=== PATIENT | male | born 1985 | race Caucasian/White ===

== ENCOUNTER 2024-07-02 02:43 | Inpatient (IN) | payer BC, SELFPAY ==
[2024-07-02] VITALS (17 sets, daily range): BP systolic 93–153; BP diastolic 68–103; PULSE 115–139; RESP 16–27; TEMP 36.4–37.1; O2SAT 96–100; BMI 25.9
--- NOTE | ~2024-07-02 | CT_ITS ---
EXAMINATION: CT abdomen pelvis w con DATE: 07/10/2024 08:44 INDICATION: Leukocytosis. TECHNIQUE: Computed tomography (CT) of the abdomen and pelvis was performed with 100 mL Omnipaque 350 intravenous contrast. Automated exposure control and iterative reconstruction technique were employe d. The dose-length product was 608.29 mGy-cm. COMPARISON: CT abdomen and pelvis 07/06/2024 FINDINGS: There are airspace opacities and centrilobular nodules in the lower lobes, right middle lob e, and lingula, consistent with pneumonia. There are small pleural effusions. The heart size is jonathon l. No pericardial effusion. The liver, gallbladder, spleen, pancreas, adrenal glands, and kidneys are normal. There is gas in the bladder lumen, likely from recent instrumentation. The prostate is mildl y enlarged. There are no dilated loops of bowel. The appendix is not visualized. There are dilated lo ops of proximal small bowel. There is wall thickening of many loops of small bowel. There are multipl e areas of small bowel anastomosis. Anterior skin sandor are noted. There foci of free intraperitone al gas, consistent with recent surgery. There is fat stranding in the peritoneum. There are no pathol ogically enlarged lymph nodes. There is no free intraperitoneal fluid. There is mild thoracic and lum bar spondylosis. IMPRESSION: 1. Bilateral pneumonia. 2. Small pleural effusions. 3. Dilated small bowel, likely adynamic ileus. 4. Wall thickening of small bowel, consistent with enteritis. Reviewed, dictated and finalized at location A. SPRAYER FIRST
--- NOTE | ~2024-07-02 | XR_ITS ---
EXAMINATION: XR chest PICC line DATE: 07/07/2024 13:56 INDICATION: PICC line placement TECHNIQUE: frontal view of the chest was obtained. COMPARISON: Chest radiograph dated 07/02/2024 FINDINGS: Interval placement of a right upper extremity peripherally inserted central venous catheter (PICC) wh ich extends into the mid superior vena cava where it makes an abrupt turn with the distal tip likely extending into the azygos vein. Nasogastric tube in expected position with tip in proximal side port in the body the stomach. Opacities at the bilateral lower lung zones which could represent atelectasis or pneumonia. No pulmon corina edema, pleural effusion or pneumothorax. Arch size is normal. IMPRESSION: 1. Right upper extremity PICC line likely extending into the azygos vein. Considering rapid saline fl ush for repositioning. 2. Opacities in the bilateral lower lung zones which could represent atelectasis and/or pneumonia. Reviewed, dictated and finalized at location B. BORER IMPRESSION: 1. Right upper extremity PICC line likely extending into the azygos vein. Consi dering rapid saline flush for repositioning. 2. Opacities in the bilateral lower lung zones which could represent atelectasi s and/or pneumonia.
--- NOTE | ~2024-07-02 | XR_ITS ---
XR abdomen/kub 1V Ordering provider: Armand Mccann MD History: . sbo . Comparison: None. FINDINGS: BOWEL: Slightly dilated small bowel loops are seen in the mid abdomen. Air is also seen in the large bowel. Nasogastric tube is seen with the tip in the stomach. ORGANOMEGALY: None. SIGNIFICANT PATHOLOGIC CALCIFICATIONS: None. OTHER: No free air is seen under the diaphragm. IMPRESSION: Slightly dilated small bowel loops in the mid abdomen. Partial obstruction is possible. Follow-up adv ised. Reviewed, dictated and finalized at location A. T METAL DUCT WORKER SUPERVISOR IMPRESSION: Slightly dilated small bowel loops in the mid abdomen. Partial obstruction is p ossible. Follow-up advised.
--- NOTE | ~2024-07-02 | XR_ITS ---
XR abdomen/kub 1V Ordering provider: Armand Mccann MD History: . sbo . Comparison: None. FINDINGS: BOWEL: Nasogastric tube is seen with the tip in the stomach. Dilated small bowel loops are seen suggestive of obstruction. Clinical correlation and Follow-up advi sed. ORGANOMEGALY: None. SIGNIFICANT PATHOLOGIC CALCIFICATIONS: None. OTHER: No free air is seen under the diaphragm. IMPRESSION: Dilated small bowel loops suggestive of obstruction. Clinical correlation and follow-up advised. Reviewed, dictated and finalized at location A. REPAIRER IMPRESSION: Dilated small bowel loops suggestive of obstruction. Clinical correlation and f ollow-up advised.
--- NOTE | ~2024-07-02 | XR_ITS ---
EXAMINATION: XR_FLGTUBINS_CR DATE: 07/11/2024 13:39 INDICATION: Difficulty with nasal gastric tube placement TECHNIQUE: Fluoroscopy was utilized during placement of a nasogastric tube. A single fluoroscopic lynnette ge of the upper abdomen was recorded. The amount of fluoroscopy time used during this procedure was 0 .8 minutes. Total DAP was 3.245 Gycm^2 COMPARISON: None. FINDINGS/impression: 1. Nasogastric tube tip in proximal side port in the body the stomach. 2. Multiple gas-filled but not frankly dilated loops of small bowel in the left upper quadrant which could represent an ileus or obstruction. Reviewed, dictated and finalized at location A. E JOINTER
--- NOTE | ~2024-07-02 | XR_ITS ---
Supine and upright views of the abdomen Clinical history: Small bowel obstruction COMPARISON: 07/05/2024 Findings: NG tube in place. Dilated small bowel loops suggest small bowel obstruction. There is oral contrast in large bowel. No free air evident. No abnormal mass lesion or calcification is seen. Sunburst us structures are intact. Impression: Probable small bowel obstruction with NG tube in place. There is oral contrast in large bowel. Reviewed, dictated and finalized at location M. SETTER Impression: Probable small bowel obstruction with NG tube in place. There is oral contrast in large bowel.
--- NOTE | ~2024-07-02 | CT_ITS ---
EXAMINATION: CT abdomen pelvis w con DATE: 07/06/2024 15:12 INDICATION: Small bowel obstruction. Elevated lipase. TECHNIQUE: Computed tomography (CT) of the abdomen and pelvis was performed with 100 mL Omnipaque 350 intravenous contrast. Automated exposure control and iterative reconstruction technique were employe d. The dose-length product was 661.88 mGy-cm. COMPARISON: CT abdomen and pelvis 07/02/2024 FINDINGS: The visualized portions of the lung bases demonstrate airspace opacities in the lower lobes , likely atelectasis. No pleural effusion. The heart size is normal. No pericardial effusion. The juanito er, gallbladder, spleen, pancreas, adrenal glands, and kidneys are normal. There is gas in the bladde r lumen, likely from recent instrumentation. There is oral contrast in the colon and distal small bow el. There are multiple loops of small bowel with some areas of wall thickening. There is a transition point in the anterior abdomen. The distal small bowel is normal in caliber. There is free intraperit sinclair gas. There is a small volume of ascites. There are no pathologically enlarged lymph nodes. Ther e is mild thoracic and lumbar spondylosis. There is mild chronic anterior wedging of multiple vertebr al bodies. IMPRESSION: 1. Free intraperitoneal gas and small volume of ascites, consistent with bowel perforation. I called this result to Meg [place]. 2. Small bowel obstruction. 3. Normal pancreas. Reviewed, dictated and finalized at location A. NEYMAN TOOL AND DIE MAKER
--- NOTE | ~2024-07-02 | XR_ITS ---
Supine and upright views of the abdomen Clinical history: Small bowel obstruction COMPARISON: 07/03/2024 Findings: NG tube in place. Probable dilated small bowel loops are consistent with obstruction. No fr ee air. No abnormal mass lesion or calcification is seen. Osseous structures are intact. Impression: NG tube in place with small bowel obstruction. Reviewed, dictated and finalized at [facility]. BOX CHECKER Impression: NG tube in place with small bowel obstruction.
--- NOTE | ~2024-07-02 | XR_ITS ---
EXAMINATION: XR abdomen/kub 1V DATE: 07/11/2024 08:00 INDICATION: Adynamic ileus. TECHNIQUE: A supine view of the abdomen on 2 radiographs was obtained. COMPARISON: Abdomen radiographs 07/10/2024 FINDINGS: There is dilated small bowel in the upper abdomen. The colon is normal in caliber. Skin sta ples are noted. IMPRESSION: 1. Persistently dilated small bowel, likely adynamic ileus. Reviewed, dictated and finalized at location A. ER SPRAYER
--- NOTE | ~2024-07-02 | XR_ITS ---
EXAM: XR abdomen gastric tube insert DATE: 07/11/2024 16:49 HISTORY: NG position, ileus . COMPARISON: 07/02/2024. FINDINGS: Streaky bibasilar atelectasis/scar. NG tube, tip and side port project over the expected l ocation of the stomach. Multiple loops of dilated small bowel in the upper abdomen. IMPRESSION: NG tube, in good position. Persistent/recurrent small bowel dilation, may represent ileus or obstruction Reviewed, dictated and finalized at location K. GER BOOKS IMPRESSION: NG tube, in good position. Persistent/recurrent small bowel dilatio n, may represent ileus or obstruction
--- NOTE | ~2024-07-02 | XR_ITS ---
EXAMINATION: XR abdomen/kub 1V DATE: 07/12/2024 09:15 INDICATION: Adynamic ileus. TECHNIQUE: A supine view of the abdomen on 2 radiographs was obtained. COMPARISON: Abdomen radiographs 07/11/2024 FINDINGS: There are dilated loops of small bowel. The colon is normal in caliber. Skin sandor are no eduardo. The nasogastric tube tip is in the stomach. There are airspace opacities in the lower lung zones . IMPRESSION: 1. Persistently dilated small bowel, likely adynamic ileus. 2. Stable airspace opacities in the lower lung zones, consistent with pneumonia. Reviewed, dictated and finalized at location A. RAFT ELECTRICAL SYSTEMS SPECIALIST IMPRESSION: 1. Persistently dilated small bowel, likely adynamic ileus. 2. Stable airspace opacities in the lower lung zones, consistent with pneumonia .
--- NOTE | ~2024-07-02 | XR_ITS ---
Upright portable view of the abdomen Clinical history: NG tube placed Findings: NG tube in satisfactory position. Multiple air distended loops of bowel are present. No abn ormal mass lesion or calcification is seen. Osseous structures are intact. Impression: NG tube in place. Probable small bowel obstruction. Reviewed, dictated and finalized at [facility]. ET MACHINE OPERATOR Impression: NG tube in place. Probable small bowel obstruction.
--- NOTE | ~2024-07-02 | XR_ITS ---
EXAMINATION: XR abdomen/kub 1V DATE: 07/10/2024 11:17 INDICATION: Adynamic ileus. TECHNIQUE: A supine view of the abdomen on 2 radiographs was obtained. COMPARISON: Abdomen radiographs 07/06/2024, CT abdomen and pelvis 07/10/2024 FINDINGS: There are dilated loops of small bowel. The colon is decompressed. Skin sandor are noted. There is contrast in the bladder. There are airspace opacities at the lung bases. IMPRESSION: 1. Dilated small bowel, likely adynamic ileus. 2. Airspace opacities at the lung bases, consistent with pneumonia. Reviewed, dictated and finalized at location A. ERICAN HISTORY PROFESSOR
--- NOTE | ~2024-07-02 | XR_ITS ---
Portable chest x-ray Comparison: None Clinical History: Pneumonia Findings: NG tube in satisfactory position. Lungs are clear, without focal consolidation or pleural effusion. Cardiomediastinal silhouette is stable. Bones and soft tissues are unremarkable. Impression: Clear lungs. NG tube in place. Reviewed, dictated and finalized at location . MANAGER Impression: Clear lungs. NG tube in place.
--- NOTE | ~2024-07-02 | XR_ITS ---
EXAM: XR abdomen gastric tube insert DATE: 07/02/2024 16:30 HISTORY: NG insertion . COMPARISON: Same date at 9:54 AM. FINDINGS: Clear lung bases. NG tube, tip and side port project over the stomach. Multiple loops of d ilated bowel in the upper abdomen. IMPRESSION: NG tube, in good position. Reviewed, dictated and finalized at location K. F LEARNING OFFICER IMPRESSION: NG tube, in good position.
--- NOTE | ~2024-07-02 | XR_ITS ---
XR abdomen/kub 1V DATE: 07/14/2024 07:51 INDICATION: Ileus. NG tube. TECHNIQUE: 2 supine AP views COMPARISON: 07/13/2024 KUB FINDINGS: NG tube unchanged in position, distal tip overlying gastric fundus, the proximal side port approximately 2.5 cm distal to the diaphragmatic hiatus. Bowel suture lines overlie both sides of the abdomen. There are skin sandor overlying the lower mid abdomen. No bowel obstruction is evident. There is right basilar atelectasis. IMPRESSION: Postoperative examination; nonspecific bowel gas pattern without apparent obstruction NG tube in gastric fundus Reviewed, dictated and finalized at [facility]. Reviewed, dictated and finalized at location A. BAR DRIVER IMPRESSION: Postoperative examination; nonspecific bowel gas pattern without ap parent obstruction NG tube in gastric fundus
--- NOTE | ~2024-07-02 | XR_ITS ---
EXAMINATION: XR chest PICC line DATE: 07/07/2024 14:16 INDICATION: Central line placement. TECHNIQUE: A single frontal view of the chest was obtained. COMPARISON: Chest single view at 1:44 PM FINDINGS: There are airspace opacities in the lower lung zones. No pleural effusion or pneumothorax. The heart size is normal. The nasogastric tube tip is in the stomach. A right upper extremity periphe rally inserted central venous catheter (PICC) is seen with tip in the superior vena cava. IMPRESSION: 1. Stable airspace opacities in the lower lung zones, consistent with atelectasis versus pneumonia. Reviewed, dictated and finalized at location A. ERY CHARGER TESTER IMPRESSION: 1. Stable airspace opacities in the lower lung zones, consistent with atelectas is versus pneumonia.
--- NOTE | ~2024-07-02 | CT_ITS ---
Non-contrast CT scan of the Abdomen and Pelvis Clinical indication: Abdominal pain Technique: 2.5 mm axial scans were obtained through the abdomen and pelvis without intravenous or or al contrast. Dose reduction technique was used on this scan by utilizing automated exposure control a nd iterative reconstruction technique. The dose-length product (DLP) was 673.77 mGy-cm. Findings: Images through the lung bases reveal no abnormalities. There is no evidence of renal or ureteral calculi. The kidneys and the ureters are nondilated. The liver, spleen, pancreas, gallbladder, and adrenals appear normal. There is no aortic aneurysm. There is marked distention of stomach and proximal small bowel loops, with transition point in the an terior mid abdomen just deep to the umbilicus. Findings are compatible with high-grade small bowel ob struction. Distal small bowel and large bowel are relatively decompressed. Images through the pelvis were performed. There is no evidence of ascites or lymphadenopathy. Urinary bladder unremarkable. No pelvic mass seen. Impression: Findings compatible high-grade small bowel obstruction, transition point as detailed above. Reviewed, dictated and finalized at location M. INSPECTOR Impression: Findings compatible high-grade small bowel obstruction, transition point as det dave above.
--- NOTE | ~2024-07-02 | XR_ITS ---
SMALL BOWEL SERIES ONLY INDICATION: High-grade small bowel obstruction TECHNIQUE: Serial plain films and fluoroscopic spot films are performed following installation of con trast via the nasogastric tube. COMPARISON: Reference is made to a CT examination of the abdomen and pelvis dated 07/02/2024 FINDINGS: Web Mobile Designer imaging demonstrated a nasogastric tube projecting over the left upper quadrant, presumably wit hin the neck. Multiple loops of significantly dilated bowel were identified measuring up to 5 cm with mural thicken ing Air opacified colon was present, but decompressed. Enteric staple line identified to the right of midline. Contrast was followed sequentially through the small bowel. Significant delay in passage is identified, not entering the colon until 4 hours following installati on. Final imaging demonstrated reduction in the caliber of the visualized small bowel, markedly distended on initial evaluation. IMPRESSION: Delayed passage into the colon with reduction in caliber of the visualized small bowel, markedly dist ended on initial evaluation. Reviewed, dictated and finalized at location A. R PROCESSOR IMPRESSION: Delayed passage into the colon with reduction in caliber of the visualized smal l bowel, markedly distended on initial evaluation.
--- NOTE | ~2024-07-02 | XR_ITS ---
XR abdomen/kub 1V DATE: 07/15/2024 08:15 INDICATION: Ileus. NG tube removed yesterday. TECHNIQUE: 2 supine AP views COMPARISON: 07/14/2024 KUB FINDINGS: Interval removal of NG tube since 07/14/2024. The lung bases appear clear. There are sandor overlying the lower mid abdomen. Radiopaque bowel sutures overlie the right upper a nd midabdomen. There are are multiple nondilated gas containing small bowel segments as well as some gas within the nondilated colon, which may be due to postoperative adynamic ileus. The psoas shadows are intact. No visceromegaly or significant abnormal calcification is evident. IMPRESSION: Gas distended small bowel and colon segments, which may be due to postoperative adynamic ileus Removal of NG tube since 07/14/2024 Reviewed, dictated and finalized at [facility]. Reviewed, dictated and finalized at location A. OMER ADVISOR IMPRESSION: Gas distended small bowel and colon segments, which may be due to p ostoperative adynamic ileus Removal of NG tube since 07/14/2024
--- NOTE | ~2024-07-02 | XR_ITS ---
EXAMINATION: XR abdomen/kub 1V DATE: 07/13/2024 07:42 INDICATION: Ileus TECHNIQUE: A supine view of the abdomen was obtained. COMPARISON: 03/11/2024 FINDINGS: Nasogastric tube tip in proximal side port in the body of the decompressed stomach. Postoperative gracia nges in the abdomen with suture lines project over the mid and right abdomen and midline skin sandor . 1 persistent single small mildly dilated segment of small bowel with additional small amount of gas scattered throughout nondilated loops of large and small bowel. Mild opacities at the right lung bas e which could represent atelectasis or pneumonia. IMPRESSION: 1. Single persistent short mildly dilated segment of small bowel in the left upper quadrant most like ly persistent ileus. 2. Mild opacities in the right lower lung zone which could represent atelectasis or pneumonia. Reviewed, dictated and finalized at location A. E TRIMMER IMPRESSION: 1. Single persistent short mildly dilated segment of small bowel in the left up per quadrant most likely persistent ileus. 2. Mild opacities in the right lower lung zone which could represent atelectasi s or pneumonia.
--- NOTE | 2024-07-02 03:02 | ECG_ITS ---
Test Date: 2024-07-02 03:06:41 Measurements Intervals [place] Rate: 116 P: 53 AL: 177 QRS: 91 QRSD: 126 T: -50 QT: 320 QTc: 445 Interpretive Statements SINUS TACHYCARDIA RIGHT AXIS DEVIATION POSSIBLE RIGHT ATRIAL ENLARGEMENT POSSIBLE LEFT ATRIAL ENLARGEMENT MINIMAL Q WAVES- INF/LAT LEADS MODERATE T-WAVE ABNORMALITY, CONSIDER LATERAL ISCHEMIA ABNORMAL ECG No previous ECG available for comparison Electronically Signed On 07-02-2024 07:54:17 MATERIALS COORDINATOR by Diallo Reyes D.O.
--- NOTE | 2024-07-02 03:07 | PC.NURSE ---
Patient is complaining of difficulty with breathing. Patient appears cyanotic. Cold extremities. EKG completed and shown to MD. RN informed MD patient does not look well.
--- NOTE | 2024-07-02 03:26 | PC.NURSE ---
placed patient on nasal o2 detector. patient o2 saturation is 99 on 2 l.
--- NOTE | 2024-07-02 03:49 | PC.NURSE ---
patient b/p running low. RN placed patient in Trendelenburg and informed ER MD at this time. MD is in seeing patient.
[2024-07-02] MEDS: ONDANSETRON INJ 4 MG/2 ML VIAL IV PUSH ×3 (04:00→17:46)
[2024-07-02] MEDS: fentaNYL CITRATE INJ (*CRX) 100 MCG/2 ML VIAL 50 MCG IV PUSH ×2 (04:00→06:54)
[2024-07-02] MEDS: SODIUM CHLORIDE 0.9% IV 1,000 ML 999 ML IV CONT ×4 (04:01→17:39)
[2024-07-02] MEDS: Please add drug allergy info to patient profile. 1 EACH XX (04:02)
[2024-07-02 04:13] LABS: Hematocrit 57.4 % (42.0-52.0); Hemoglobin 19.4 g/dL (14.0-18.0); Immature Platelet Fraction Pct 4.7 % (0.9-11.2); Mean Corpuscular HGB Conc 33.8 g/dl (32-36); Mean Corpuscular Hemoglobin 31.9 pg (26-34); Mean Corpuscular Volume 94.3 fl (80-100); Mean Platelet Volume 10.4 fl (7.4-10.4); Platelet Count Result 337 k/mm3 (150-375); Red Blood Count 6.09 M/mm3 (4.6-6.20); Red Cell Distribution Width 12.9 % (11.5-14.5); White Blood Count 13.1 K/mm3 (4.5-10.0)
[2024-07-02 04:22] LABS: Lactic Acid Reflex 3.7 mmol/L (0.7-2.0)
[2024-07-02 04:25] LABS: Alanine Aminotransferase 27 U/L (6-50); Albumin Level 5.6 g/dL (3.5-5.1); Alkaline Phosphatase 150 U/L (38-126); Anion Gap 30 mmol/L (4-12); Aspartate Amino Transferase 30 U/L (17-59); Bilirubin,Total 0.9 mg/dL (0.2-1.3); Blood Urea Nitrogen 38 mg/dL (9-20); Carbon Dioxide 10 mmol/L (22-30); Chloride 92 mmol/L (98-107); Estimated CRCL calculation 19 ml/min; Estimated Glomerular Filt Rate 11; Glucose 296 mg/dL (65-110); Lipase 582 U/L (23-300); Magnesium 2.9 mg/dL (1.6-2.3); Potassium 4.1 mmol/L (3.4-5.0); Sodium 132 mmol/L (137-145)
[2024-07-02 04:29] LABS: NT Pro B Type Natriuretic Pept 355 pg/mL (19.9-100)
--- NOTE | 2024-07-02 04:38 | ED_ITS ---
HPI - General Adult General Chief complaint: Abdominal Pain <Prashant Hanks MD - Last Filed: 07/02/24 06:48> Stated complaint: constipation <Prashant Hanks MD - Last Filed: 07/02/24 06:48> Time Seen by Provider: 07/02/24 03:52 <Prashant Hanks MD - Last Filed: 07/02/24 06:48> Source: EMS, RN notes reviewed and old records reviewed <Akila López MD - Last Filed: 07/02/24 11:45> Mode of arrival: EMS <Akila López MD - Last Filed: 07/02/24 11:45> Limitations: no limitations <Akila López MD - Last Filed: 07/02/24 11:45> History of Present Illness HPI narrative: Patient 39-year-old gentleman who presents emergency department chief complaint of abdominal pain. Patient reports that he has prior history of multiple abdominal surgeries has had bowel obstructions before in the past the patient states he has been mostly followed over at [facility] but has not seen them in 6 years. The patient states that he has not had a bowel movement since the she reports that his abdomen is distended <Prashant Hanks MD - Last Filed: 07/02/24 06:48> Related Data Allergies/adverse reactions: Allergies Allergy/AdvReac Type Severity Reaction Status Date / Time No Known Allergies Allergy Verified 07/02/24 03:55 <Prashant Hanks MD - Last Filed: 07/02/24 06:48> Review of Systems Review of Systems: A 10 system review of systems was completed on the patient and is negative except for what is stated in the HPI. Nursing and ancillary documentation was reviewed. <Prashant Hanks MD - Last Filed: 07/02/24 06:48> PMF Past Medical History Medical History: Medical History (Updated 07/02/24 @ 11:45 by Akila López MD) Small bowel obstruction <Prashant Hanks MD - Last Filed: 07/02/24 06:48> Surgical History Surgical History: Surgical History (Updated 07/02/24 @ 11:37 by Akila López MD) H/O lysis of adhesions H/O resection of small bowel <Prashant Hanks MD - Last Filed: 07/02/24 06:48> Social History Social History: Social History (Updated 07/02/24 @ 11:37 by Akila López MD) Smoking status: Unknown if ever smoked <Prashant Hanks MD - Last Filed: 07/02/24 06:48> Exam Narrative: GENERAL: Well-appearing, well-nourished, and in no acute distress. HEAD: Normocephalic, atraumatic. EYES: PERRLA and EOMI. ENT: Nares clear, no rhinorrhea or epistaxis. Mucous membranes dry. NECK: Supple. CHEST: Clear to auscultation. No respiratory distress. HEART: Regular rate and rhythm. No murmur heard. Normal peripheral pulses. ABDOMEN: Soft, distended diffusely tender to palpation, normal active bowel sounds. EXTREMITIES: Normal range of motion. No edema. SKIN: Warm, dry, no rash. NEURO: No focal deficits. Alert and oriented x3. PSYCH: Normal mood and affect. <Prashant Hanks MD - Last Filed: 07/02/24 06:48> GENERAL: , well-nourished, and in no acute distress. HEAD: Normocephalic, atraumatic. EYES: PERRLA and EOMI. ENT: Nares clear, no rhinorrhea or epistaxis. Mucous membranes dry. NECK: Supple. CHEST: Clear to auscultation. No respiratory distress. HEART: Regular rate and rhythm. No murmur heard. Normal peripheral pulses. ABDOMEN: Soft, distended diffusely tender to palpation, normal active bowel sounds. EXTREMITIES: Normal range of motion. No edema. SKIN: Warm, dry, no rash. NEURO: No focal deficits. Alert and oriented x3. PSYCH: Normal mood and affect. <Akila López MD - Last Filed: 07/02/24 11:45> Const: General: ill appearing <Akila López MD - Last Filed: 07/02/24 11:45> Course Reevaluation(s) Reevaluation #1: I discussed with patient that he has TYLER, SBO and that he needs to have nasogastric tube placed. I discussed importance of this placement for treatment and he is agreeable with antianxiolytic. <Akila López MD - Last Filed: 07/02/24 11:45> Date: 07/02/24 <Akila López MD - Last Filed: 07/02/24 11:45> Time: 10:40 <Akila López MD - Last Filed: 07/02/24 11:45> Consultations Consultation #1: I discussed case with Dr. Mccann. He agrees to consult. He states patient needs to have nasogastric tube for treatment. <Akila López MD - Last Filed: 07/02/24 11:45> Date: 07/02/24 <Akila López MD - Last Filed: 07/02/24 11:45> Time: 10:40 <Akila López MD - Last Filed: 07/02/24 11:45> Vital Signs Vital signs: Vital Signs Pulse Rate 118 H 07/02/24 02:46 Respiratory Rate 27 H 07/02/24 02:46 Blood Pressure 93/78 L 07/02/24 02:46 Temperature 97.5 F L 07/02/24 06:50 Pulse Rate 120 H 07/02/24 11:02 Respiratory Rate 18 07/02/24 10:19 Blood Pressure 101/68 07/02/24 10:19 Pulse Oximetry 100 07/02/24 10:19 <Prashant Hanks MD - Last Filed: 07/02/24 06:48> Vital Signs Pulse Rate 118 H 07/02/24 02:46 Respiratory Rate 27 H 07/02/24 02:46 Blood Pressure 93/78 L 07/02/24 02:46 Temperature 97.5 F L 07/02/24 06:50 Pulse Rate 120 H 07/02/24 11:02 Respiratory Rate 18 07/02/24 10:19 Blood Pressure 101/68 07/02/24 10:19 Pulse Oximetry 100 07/02/24 10:19 <Akila López MD - Last Filed: 07/02/24 11:45> Medical Decision Making MDM Narrative Medical decision making narrative: PAtient presents with nausea, vomiting, weakness and abdominal pain. He was seen by [facility] EDP initially, pending CT. Once CT returned, he was found to have SBO and nursing states he declined NGT. I spoke with patient and stated he has had SBO several times and he just wants to see if obstruction resolves with IV fluids. I spoke with General surgery and they state patient needs tube. Patient agrees to do it after discussion. HE has already received 2 liters IVs. He is still tachycardic so another bolus to be given. I spoke with hospitalist who accepts to IMU. REquest chest xray to assess for pneumonia and to started rocephin and flagyl. <Akial López MD - Last Filed: 07/02/24 11:45> Vital Signs Vital Signs: Vital Signs Pulse Rate 118 H 07/02/24 02:46 Respiratory Rate 27 H 07/02/24 02:46 Blood Pressure 93/78 L 07/02/24 02:46 Temperature 97.5 F L 07/02/24 06:50 Pulse Rate 120 H 07/02/24 11:02 Respiratory Rate 18 07/02/24 10:19 Blood Pressure 101/68 07/02/24 10:19 Pulse Oximetry 100 07/02/24 10:19 <Prashant Hanks MD - Last Filed: 07/02/24 06:48> Vital Signs Pulse Rate 118 H 07/02/24 02:46 Respiratory Rate 27 H 07/02/24 02:46 Blood Pressure 93/78 L 07/02/24 02:46 Temperature 97.5 F L 07/02/24 06:50 Pulse Rate 120 H 07/02/24 11:02 Respiratory Rate 18 07/02/24 10:19 Blood Pressure 101/68 07/02/24 10:19 Pulse Oximetry 100 07/02/24 10:19 <Akila López MD - Last Filed: 07/02/24 11:45> Lab Data Lab results reviewed: Yes I reviewed the patient's lab results. <Akila López MD - Last Filed: 07/02/24 11:45> Result diagrams: 07/02/24 04:04 07/02/24 04:04 <Prashant Hanks MD - Last Filed: 07/02/24 06:48> Labs: Lab Results 07/02/24 07/02/24 07/02/24 Range/Units 04:04 06:47 07:23 WBC 13.1 H (4.5-10.0) K/mm3 RBC 6.09 (4.6-6.20) M/mm3 Hgb 19.4 H (14.0-18.0) g/dL Hct 57.4 H (42.0-52.0) % MCV 94.3 (80-100) fl MCH 31.9 (26-34) pg MCHC 33.8 (32-36) g/dl RDW 12.9 (11.5-14.5) % Plt Count 337 (150-375) k/mm3 MPV 10.4 (7.4-10.4) fl Immature Gran % (Auto) Not Reportable Neut % (Auto) Not Reportable Lymph % (Auto) Not Reportable [place] % (Auto) Not Reportable Eos % (Auto) Not Reportable Baso % (Auto) Not Reportable Lymph # (Auto) Not Reportable [place] # (Auto) Not Reportable Eos # (Auto) Not Reportable Baso # (Auto) Not Reportable Abs Immat Gran (auto) Not Reportable Absolute Neuts (auto) Not Reportable Absolute Nucleated RBC Not Reportable Total Counted 100 Neutrophils % (Manual) 75 H (46-73) % Band Neutrophils % 5 (0-6) % Lymphocytes % (Manual) 6.0 L (18-44) % Monocytes % (Manual) 14 H (3-9) % Nucleated RBC % Not Reportable Abs Neuts (Manual) 10.48 H (1.3-6.7) K/mm3 Abs Lymphs (Manual) 0.78 L (1.1-4.5) K/mm3 Abs Monocytes (Manual) 1.83 H (0.1-0.90) K/mm3 Smudge Cells Present Platelet Estimate Adequate (Adequate) Clumped Platelets Present Large Platelets Present Giant Platelets Present % Immature Plt Fraction 4.7 (0.9-11.2) % Schistocytes None seen Sodium 132 L (137-145) mmol/L Potassium 4.1 (3.4-5.0) mmol/L Chloride 92 L (98-107) mmol/L Carbon Dioxide 10 L (22-30) mmol/L Anion Gap 30 H (4-12) mmol/L BUN 38 H (9-20) mg/dL Creatinine 5.80 H (0.7-1.3) mg/dL Estim Creat Clear Calc 19 ml/min Estimated GFR 11 L (59 - ) Glucose 296 H (65-110) mg/dL Lactic Acid 3.7 H 1.1 (0.7-2.0) mmol/L Calcium 11.0 H (8.4-10.2) mg/dL Magnesium 2.9 H (1.6-2.3) mg/dL Total Bilirubin 0.9 (0.2-1.3) mg/dL AST 30 (17-59) U/L ALT 27 (6-50) U/L Alkaline Phosphatase 150 H (38-126) U/L NT-Pro-B Natriuret Pep 355 H (19.9-100) pg/mL Total Protein 11.0 H (6.3-8.2) g/dL Albumin 5.6 H (3.5-5.1) g/dL Lipase 582 H (23-300) U/L Urine Color Dark yellow (Yellow) Urine Appearance Turbid H (Clear) Urine pH 5.0 (5.0-9.0) Ur Specific [place] 1.029 (1.001-1.035) Urine Protein 3+ H (Negative) mg/dL Urine Glucose (UA) Trace H (Negative) mg/dL Urine Ketones Trace H (Negative) mg/dL Ur Blood (Man) Trace (Negative) Urine Nitrate Negative (Negative) Urine Bilirubin 2+ H (Negative) Urine Urobilinogen 1.0 (<2.0) mg/dL Add Ur Microanalysis Reviewed Leukocyte Esterase Rfl Trace H (Negative) BEN/UL Urine RBC 0-2 (0-2) /hpf Urine WBC 21-50 H (0-3) /hpf Ur Squamous Epith Cells Occasional (Few) /hpf Urine Bacteria None seen /hpf Urine Casts >20 <Prashant Hanks MD - Last Filed: 07/02/24 06:48> Lab Results 07/02/24 07/02/24 07/02/24 Range/Units 04:04 06:47 07:23 WBC 13.1 H (4.5-10.0) K/mm3 RBC 6.09 (4.6-6.20) M/mm3 Hgb 19.4 H (14.0-18.0) g/dL Hct 57.4 H (42.0-52.0) % MCV 94.3 (80-100) fl MCH 31.9 (26-34) pg MCHC 33.8 (32-36) g/dl RDW 12.9 (11.5-14.5) % Plt Count 337 (150-375) k/mm3 MPV 10.4 (7.4-10.4) fl Immature Gran % (Auto) Not Reportable Neut % (Auto) Not Reportable Lymph % (Auto) Not Reportable [place] % (Auto) Not Reportable Eos % (Auto) Not Reportable Baso % (Auto) Not Reportable Lymph # (Auto) Not Reportable [place] # (Auto) Not Reportable Eos # (Auto) Not Reportable Baso # (Auto) Not Reportable Abs Immat Gran (auto) Not Reportable Absolute Neuts (auto) Not Reportable Absolute Nucleated RBC Not Reportable Total Counted 100 Neutrophils % (Manual) 75 H (46-73) % Band Neutrophils % 5 (0-6) % Lymphocytes % (Manual) 6.0 L (18-44) % Monocytes % (Manual) 14 H (3-9) % Nucleated RBC % Not Reportable Abs Neuts (Manual) 10.48 H (1.3-6.7) K/mm3 Abs Lymphs (Manual) 0.78 L (1.1-4.5) K/mm3 Abs Monocytes (Manual) 1.83 H (0.1-0.90) K/mm3 Smudge Cells Present Platelet Estimate Adequate (Adequate) Clumped Platelets Present Large Platelets Present Giant Platelets Present % Immature Plt Fraction 4.7 (0.9-11.2) % Schistocytes None seen Sodium 132 L (137-145) mmol/L Potassium 4.1 (3.4-5.0) mmol/L Chloride 92 L (98-107) mmol/L Carbon Dioxide 10 L (22-30) mmol/L Anion Gap 30 H (4-12) mmol/L BUN 38 H (9-20) mg/dL Creatinine 5.80 H (0.7-1.3) mg/dL Estim Creat Clear Calc 19 ml/min Estimated GFR 11 L (59 - ) Glucose 296 H (65-110) mg/dL Lactic Acid 3.7 H 1.1 (0.7-2.0) mmol/L Calcium 11.0 H (8.4-10.2) mg/dL Magnesium 2.9 H (1.6-2.3) mg/dL Total Bilirubin 0.9 (0.2-1.3) mg/dL AST 30 (17-59) U/L ALT 27 (6-50) U/L Alkaline Phosphatase 150 H (38-126) U/L NT-Pro-B Natriuret Pep 355 H (19.9-100) pg/mL Total Protein 11.0 H (6.3-8.2) g/dL Albumin 5.6 H (3.5-5.1) g/dL Lipase 582 H (23-300) U/L Urine Color Dark yellow (Yellow) Urine Appearance Turbid H (Clear) Urine pH 5.0 (5.0-9.0) Ur Specific [place] 1.029 (1.001-1.035) Urine Protein 3+ H (Negative) mg/dL Urine Glucose (UA) Trace H (Negative) mg/dL Urine Ketones Trace H (Negative) mg/dL Ur Blood (Man) Trace (Negative) Urine Nitrate Negative (Negative) Urine Bilirubin 2+ H (Negative) Urine Urobilinogen 1.0 (<2.0) mg/dL Add Ur Microanalysis Reviewed Leukocyte Esterase Rfl Trace H (Negative) BEN/UL Urine RBC 0-2 (0-2) /hpf Urine WBC 21-50 H (0-3) /hpf Ur Squamous Epith Cells Occasional (Few) /hpf Urine Bacteria None seen /hpf Urine Casts >20 <Akila López MD - Last Filed: 07/02/24 11:45> Imaging Data Radiologist's impression: ITS Impressions Abdomen/Pelvis CT 07/02/24 08:21 Impression: Findings compatible high-grade small bowel obstruction, transition point as detailed above. Abdomen X-Ray 07/02/24 09:58 Impression: NG tube in place. Probable small bowel obstruction. Chest X-Ray 07/02/24 09:58 Impression: Clear lungs. NG tube in place. <Akila López MD - Last Filed: 07/02/24 11:45> ECG Data EKG #1: Attestation: I personally reviewed and interpreted this ECG as follows: <Akila López MD - Last Filed: 07/02/24 11:45> ECG completion date: 07/02/24 <Akila López MD - Last Filed: 07/02/24 11:45> ECG completion time: 03:06 <Akila López MD - Last Filed: 07/02/24 11:45> EKG Interpretation: tachycardia (116), sinus rhythm and right axis <Akila López MD - Last Filed: 07/02/24 11:45> Critical Care Time Critical Care Time Critical Care Time: Yes <Akila López MD - Last Filed: 07/02/24 11:45> Total Critical Care Time: 45 <Akila López MD - Last Filed: 07/02/24 11:45> Discharge Plan Discharge Clinical Impression: Complete obstruction of small intestine, Acidosis, lactic, Acute kidney injury <Prashant Hanks MD - Last Filed: 07/02/24 06:48> Patient Disposition: Still a Patient <Prashant Hanks MD - Last Filed: 07/02/24 06:48> Condition: Serious <Prashant Hanks MD - Last Filed: 07/02/24 06:48>
[2024-07-02 04:43] LABS: Band Neutrophils Percent 5 % (0-6); Giant Platelets Present; Large Platelets Present; Lymphocytes Absolute Manual 0.78 K/mm3 (1.1-4.5); Monocytes Absolute Manual 1.83 K/mm3 (0.1-0.90); Monocytes Percent Manual 14 % (3-9); Neutrophils Absolute Manual 10.48 K/mm3 (1.3-6.7); Neutrophils Percent Manual 75 % (46-73); Platelet Clumps Present; Platelet Estimate Adequate (Adequate); Total Cells Counted 100
[2024-07-02 04:44] LABS: Schistocytes None Seen; Smudge Cells PRESENT
--- NOTE | 2024-07-02 06:30 | PC.NURSE ---
Per ELENA Leyva, patient refusing NG tube.
[2024-07-02 07:08] LABS: Reflex Lactic Acid Yes or No Add Lactic
[2024-07-02 07:18] LABS: Add Urine Microscopic? YES; Appearance Urine Turbid (Clear); Bacteria Urine None Seen /hpf; Bilirubin Urine 2+ (Negative); Blood Urine Trace (Negative); Color Urine Dark Yellow (Yellow); Glucose Urine UA Trace mg/dL (Negative); Ketones Urine Trace mg/dL (Negative); Leukocyte Esterase Ur Trace LEU/UL (Negative); Need Manual Microscopic Reviewed; Nitrate Urine Negative (Negative); Non Pathogenic Casts >20; Protein Urine 3+ mg/dL (Negative); RBC Urine 0-2 /hpf (0-2); Specific Grav Ur 1.029 (1.001-1.035); Squamous Epithelial Cell Urine Occasional /hpf (Few); WBC Urine 21-50 /hpf (0-3)
[2024-07-02 07:47] LABS: Lactic Acid 1.1 mmol/L (0.7-2.0)
[2024-07-02] MEDS: LORazepam INJ (*CRX) 2 MG/ML VIAL 0.5 MG IV PUSH (09:33)
[2024-07-02] MEDS: SODIUM CHLORIDE 0.9% IV 1,000 ML 150 ML IV CONT (10:09)
--- NOTE | 2024-07-02 10:35 | PC.NURSE ---
EDP to bedside. EDP VORB to give IVF wide open d/t HR 130s.
[2024-07-02] MEDS: BENZOCAINE/TETRACAINE SPRAY (*SP) 56 ML AEROSOL 1 SPRAY (10:36)
--- NOTE | 2024-07-02 10:41 | PC.NURSE ---
Dr. Mccann at bedside.
--- NOTE | 2024-07-02 11:26 | ADMGEN ---
This patient, Vin Morris, was admitted to IMU Room 214-01 at 1120. Patient/family oriented to hospital policies and general routines including ID bracelet, bed and alarms, visiting hours, pain management, procedures, bathroom and other care routines, personal items, smoking policy, room service/diet, and visiting hours. Information on how to activate the Rapid Response Team has been discussed. Patient/Family are encouraged to report perceived risks to care and to ask questions if they do not understand what they are told or what they should do.
[2024-07-02] MEDS: metroNIDAZOLE 500 MG/ISO 100ML 500 MG/100 ML BAG 100 MG IVPB ×2 (11:29→20:55)
[2024-07-02] MEDS: LACTATED RINGERS 1,000 ML 125 ML IV CONT (11:29)
--- NOTE | 2024-07-02 14:07 | P.HP_ITS ---
H&P: HPI History of Present Illness Date/Time: 07/02/24 14:07 Chief Complaint: abd pain and vomiting Narrative: 39-year-old male past medical history of anxiety and depression presented to the ER on account of worsening abdominal pain and vomiting. Reported he was in his usual state of health until about 3 days prior to his presentation when he started having diffuse abdominal pain described as dull about 6/10 in intensity constant, associated with vomiting noted noted above 20 episodes of vomiting but denies any blood. Also noted abdominal distension. Presented to the ER on account of his symptoms. Denies any fever, no shortness of breath, chest pain no dysuria no diarrhea. Last bowel movement was on nausea. 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 Inguinal herniorrhaphy. ER evaluation notable temperature 98.3?, pulse rate 120, respiratory 24, blood pressure 145/99 saturation 98% on room air. White count is 13.1, blood sugar 296, CT abdomen showed high-grade small-bowel obstruction with a transition point. Chest x-ray unremarkable. Review of Systems Review of Systems: All other systems reviewed and negative except as noted in the history above. [facility] Past Medical History Medical History (Updated 07/02/24 @ 14:16 by David Hercules MD) Small bowel obstruction Surgical History Surgical History (Updated 07/02/24 @ 11:37 by Akila López MD) H/O lysis of adhesions H/O resection of small bowel Family History Family History (Updated 07/02/24 @ 11:53 by Estephanie Lilly RN) Grandparent Acute myocardial infarction Cerebrovascular accident Congestive heart failure Hypertension Other Congestive heart failure Grandparent Acute myocardial infarction Congestive heart failure Diabetes mellitus Hypertension Breast cancer Grandparent Acute myocardial infarction Congestive heart failure Hypertension Father Congestive heart failure Hypertension Social History Social History (Updated 07/02/24 @ 11:37 by Akila López MD) Smoking status: Unknown if ever smoked Alcohol intake: current Drinks per week: 5 Substance use: never Do You Feel Safe in your Home?: Yes Lack of Transportation: No Lack of Food: Never True Current Housing: I Have Housing Concerned About Future Housing: No Difficulty Paying Gas/Electric Bills: No Difficulty Paying for Meds: No Currently Unemployed: No Education: Master's Degree or Higher Difficulty w/ Childcare or Family Care: No Spiritual care concerns: No Meds Home Medications and Allergies Home Medications Medication Instructions Recorded Confirmed Type acetaminophen 300 mg-codeine 30 mg 1 tablet PO Q6H PRN Incisional pain 07/02/24 07/02/24 History tablet alprazolam 0.5 mg tablet 0.5 mg PO BID PRN Anxiety 07/02/24 07/02/24 History amitriptyline 25 mg tablet 25 mg PO HS 07/02/24 07/02/24 History bupropion HCl 300 mg 24 hr tablet, 300 mg PO DAILY 07/02/24 07/02/24 History extended release buspirone 15 mg tablet 45 mg DAILY 07/02/24 07/02/24 History cetirizine 10 mg tablet 10 mg PO DAILY 07/02/24 07/02/24 History desvenlafaxine succinate 25 mg 25 mg PO DAILY 07/02/24 07/02/24 History tablet,extended release 24 hr docusate sodium 100 mg capsule 100 mg PO HS 07/02/24 07/02/24 History (Colace) fluticasone propionate 50 2 spray intranasal DAILY 07/02/24 07/02/24 History mcg/actuation nasal spray,suspension hydrocodone 5 mg-acetaminophen 325 1 tablet PO Q4H PRN Pain from 07/02/24 07/02/24 History mg tablet bowel obstruction montelukast 10 mg tablet 10 mg PO DAILY 07/02/24 07/02/24 History omeprazole 40 mg capsule,delayed 40 mg PO DAILY 07/02/24 07/02/24 History release ondansetron HCl 8 mg tablet 8 mg PO Q8H PRN Nausea And Vomiting 07/02/24 07/02/24 History Allergies Allergy/AdvReac Type Severity Reaction Status Date / Time No Known Allergies Allergy Verified 07/02/24 03:55 Vital Signs Vital Signs - 24 hr 07/02/24 02:46 07/02/24 03:38 07/02/24 06:11 Temperature Pulse Rate 118 H 116 H 115 H Respiratory Rate 27 H 20 20 Blood Pressure 93/78 L 102/74 117/103 H Pulse Oximetry 99 97 Oxygen Delivery 07/02/24 06:24 07/02/24 06:50 07/02/24 08:00 Temperature 98.4 F 97.5 F L Pulse Rate 118 H 116 H Respiratory Rate 21 H 16 Blood Pressure 135/95 H 142/99 H Pulse Oximetry 96 100 Oxygen Delivery 07/02/24 10:19 07/02/24 11:02 07/02/24 11:57 Temperature Pulse Rate 135 H 120 H Respiratory Rate 18 Blood Pressure 101/68 Pulse Oximetry 100 Oxygen Delivery Room Air 07/02/24 12:00 07/02/24 12:00 Temperature 98.3 F Pulse Rate 128 H 121 H Respiratory Rate 24 H Blood Pressure 145/99 H Pulse Oximetry 98 Oxygen Delivery Exam Narrative: General: alert and comfortable Eyes: EOMI, PERRLA ENNT External ears normal, Neck is supple, no masses, Respiratory systems: Clear to auscultation Cardiovascular S1, S2, normal rhythm, no murmur, rub, or gallop; no thrill or palpable murmurs on palpation. Gastrointestinal: soft, distended, diffuse tenderness. Skin: no rash, lesions, ulcerations, subcutaneous nodules or induration Musculoskeletal: no abnormality and no tenderness, normal ROM Neurologic: Alert and oriented x3, non focal Mental Status Exam: normal affect H&P: Results Labs Labs: Short CBC 07/02/24 Range/Units 04:04 WBC 13.1 H (4.5-10.0) K/mm3 Hgb 19.4 H (14.0-18.0) g/dL Hct 57.4 H (42.0-52.0) % Plt Count 337 (150-375) k/mm3 [facility] 07/02/24 04:04 Sodium 132 L Potassium 4.1 Chloride 92 L Carbon Dioxide 10 L BUN 38 H Creatinine 5.80 H Glucose 296 H Calcium 11.0 H Liver Function 07/02/24 Range/Units 04:04 Total Bilirubin 0.9 (0.2-1.3) mg/dL AST 30 (17-59) U/L ALT 27 (6-50) U/L Alkaline Phosphatase 150 H (38-126) U/L Albumin 5.6 H (3.5-5.1) g/dL Urine 07/02/24 Range/Units 06:47 Urine Color Dark yellow (Yellow) Urine Appearance Turbid H (Clear) Urine pH 5.0 (5.0-9.0) Ur Specific [place] 1.029 (1.001-1.035) Urine Protein 3+ H (Negative) mg/dL Urine Glucose (UA) Trace H (Negative) mg/dL Assessment and Plan Assessment and plan (1) Complete obstruction of small intestine: Code(s): K56.601 - Complete intestinal obstruction, unspecified as to cause Status: Acute (2) Acute kidney injury: Code(s): N17.9 - Acute kidney failure, unspecified Status: Acute (3) Sepsis: Code(s): A41.9 - Sepsis, unspecified organism Status: Acute Plan Sepsis Patient is tachycardic, tachypneic, with leukocytosis Infectious etiology unclear at this point, may be from dehydration. Continue monitoring cultures CT abdomen the chest x-ray all reviewed. Continue Rocephin Flagyl IV fluid Monitor closely. Small-bowel obstruction CT abdomen showed high-grade small-bowel obstruction General surgery consulted from the ER Likely from adhesions, patient has had multiple abdominal surgeries as noted in the HPI. Continue NG tube drainage with antibiotic solution Continue IV fluid. NPO TYLER Cr 5.8, likely from dehydration and given vomiting Continue IV fluid. Monitor Hyperglycemia Denies any history of diabetes A1c ordered Sliding scale insulin with Accu-Cheks q.6 hours. Anxiety and depression Hold home medications and titrate clinical course DVT prophylaxis subQ heparin. Full code surrogate decisionmaker is Chyna Wadsworth [facility] Advance Care Plan I have confirmed that the patient's Advanced Care Plan is present, code status is documented, or surrogate decision maker is listed in patient medical record.: Yes Medication Reconciliation I have utilized all available resources to obtain, update and review the patients current medications (includes all prescriptions, OTC, herbals, cannabis, and nutritional supplements).: Yes
--- NOTE | 2024-07-02 15:55 | PC.NURSE ---
Pt called out stating I pulled on my NG. Can someone come look at it? RN entered room to assess NG. NG tube is out to 50cm from 60cm. RN tried to advanced NG back to 60cm. Pt started to vomit, and NG coiled in pt's mouth. RN called another RN for help. Second RN to bedside, and attempted to reinsert NG tube. NG coiled in mouth again. NG tube removed. New NG inserted into Left nare with spontaneous return of gastric content . STAT KUB ordered to confirm placement.
[2024-07-02] MEDS: LORazepam INJ (*CRX) 2 MG/ML VIAL 1 MG IV PUSH (16:16)
--- NOTE | 2024-07-02 16:46 | P.CONGS_ITS ---
Assessment and Plan Assessment and plan (1) Obstruction of small intestine due to peritoneal adhesion: Code(s): K56.50 - Intestinal adhesions [bands], unspecified as to partial versus complete obstruction Status: Acute Assessment and Plan: Patient appears to have a high-grade obstruction with transition point in the anterior abdomen near his umbilicus and previous midline scar. He has had these before and they have resolved with nonsurgical treatment but occasionally have required surgery. For now, we will continue nasogastric tube suction, NPO except for some ice chips, IV fluid resuscitation and follow serial abdominal exam, plain films of the abdomen, and lab work. Thank you for asking me to see this interesting patient in consultation. (2) Acute kidney injury: Code(s): N17.9 - Acute kidney failure, unspecified Status: Acute Assessment and Plan: No previous records but patient has a creatinine of 5.8 and an estimated creatinine clearance of only 19. May have some element of chronic kidney disease with acute kidney injury. Nephrology has been consulted. Would recommend potassium supplementation of some sore with his IV fluids. (3) Hyperglycemia: Code(s): R73.9 - Hyperglycemia, unspecified Status: Acute Assessment and Plan: Glucose 296 on admission. No hemoglobin A1c as yet. (4) Dehydration, severe: Code(s): E86.0 - Dehydration Status: Acute Assessment and Plan: Due to fluid requestration with small-bowel obstruction, 3rd spacing, and vomiting. Continue isotonic fluid resuscitation and some potassium as I suspect he has lost quite a bit of potassium from the bowel obstruction as well. History of Present Illness Consult details Consult date: 07/02/24 Reason for consult: abdominal pain Requesting physician: Akila López MD Narrative: Patient is a 39-year-old man who has had multiple episodes of small-bowel obstructions. These have generally been treated surgically or nonsurgically at [facility]. His index operation was an exploratory laparotomy for what sounds like ruptured Meckel's diverticulum when he was in his early 20s. Since then he has had a couple of other bowel resections and hernia repairs. He had 6 months ago a left inguinal open hernia repair. He has not had problems with a bowel obstruction for 6 years. About 3 days before admission in the evening patient started noticing abdominal distension with some diffuse pain and nausea. He has had this happen and it had resolved on its own so he held off on coming to the hospital. It did not improve and in fact he developed vomiting and worsened pain with more distension. He came to the emergency room with a distended tender, firm abdomen. Imaging including CT scan showed evidence of a small-bowel obstruction with transition point anterior in the abdomen at about the area of the umbilicus. There was a tremendous amount of fluid in his stomach and and is small intestine. He has not had a bowel movement in 3 days. He has not had previous labs here but his creatinine is 5.6. He is polycythemic. His blood sugar is almost 300. He is admitted to the hospital list and I am seeing the patient in consultation for his bowel obstruction. Nasogastric tube has been placed and is in good position by abdominal films. He has already had nearly 2 L drained with the NG tube. Review of Systems Review of Systems: All systems reviewed & are unremarkable except as noted in HPI and below (HPI and those items noted below) Constitutional: Constitutional: Denies chills and Denies fever(s) Cardiovascular: Cardiovascular: Denies chest pain, Denies diaphoresis, Denies dyspnea and Denies paroxysmal nocturnal dyspnea Respiratory: Respiratory: Denies chest congestion, Denies cough and Denies dyspnea Integumentary/Breasts: Skin/Breast: Denies lesions and Denies rash PMFSH Past Medical History Medical History Small bowel obstruction Surgical History Surgical History H/O lysis of adhesions H/O resection of small bowel Family History Family History Grandparent Acute myocardial infarction Cerebrovascular accident Congestive heart failure Hypertension Other Congestive heart failure Grandparent Acute myocardial infarction Congestive heart failure Diabetes mellitus Hypertension Breast cancer Grandparent Acute myocardial infarction Congestive heart failure Hypertension Father Congestive heart failure Hypertension Social History Social History Smoking status: Unknown if ever smoked Alcohol intake: current Drinks per week: 5 Substance use: never Do You Feel Safe in your Home?: Yes Lack of Transportation: No Lack of Food: Never True Current Housing: I Have Housing Concerned About Future Housing: No Difficulty Paying Gas/Electric Bills: No Difficulty Paying for Meds: No Currently Unemployed: No Education: Master's Degree or Higher Difficulty w/ Childcare or Family Care: No Spiritual care concerns: No Meds Home Medications and Allergies Home Medications Medication Instructions Recorded Confirmed Type acetaminophen 300 mg-codeine 30 mg 1 tablet PO Q6H PRN Incisional pain 07/02/24 07/02/24 History tablet alprazolam 0.5 mg tablet 0.5 mg PO BID PRN Anxiety 07/02/24 07/02/24 History amitriptyline 25 mg tablet 25 mg PO HS 07/02/24 07/02/24 History bupropion HCl 300 mg 24 hr tablet, 300 mg PO DAILY 07/02/24 07/02/24 History extended release buspirone 15 mg tablet 45 mg DAILY 07/02/24 07/02/24 History cetirizine 10 mg tablet 10 mg PO DAILY 07/02/24 07/02/24 History desvenlafaxine succinate 25 mg 25 mg PO DAILY 07/02/24 07/02/24 History tablet,extended release 24 hr docusate sodium 100 mg capsule 100 mg PO HS 07/02/24 07/02/24 History (Colace) fluticasone propionate 50 2 spray intranasal DAILY 07/02/24 07/02/24 History mcg/actuation nasal spray,suspension hydrocodone 5 mg-acetaminophen 325 1 tablet PO Q4H PRN Pain from 07/02/24 07/02/24 History mg tablet bowel obstruction montelukast 10 mg tablet 10 mg PO DAILY 07/02/24 07/02/24 History omeprazole 40 mg capsule,delayed 40 mg PO DAILY 07/02/24 07/02/24 History release ondansetron HCl 8 mg tablet 8 mg PO Q8H PRN Nausea And Vomiting 07/02/24 07/02/24 History Allergies Allergy/AdvReac Type Severity Reaction Status Date / Time No Known Allergies Allergy Verified 07/02/24 03:55 Vital Signs Vital Signs - 24 hr 07/02/24 02:46 07/02/24 03:38 07/02/24 06:11 Temperature Pulse Rate 118 H 116 H 115 H Respiratory Rate 27 H 20 20 Blood Pressure 93/78 L 102/74 117/103 H Pulse Oximetry 99 97 Oxygen Delivery 07/02/24 06:24 07/02/24 06:50 07/02/24 08:00 Temperature 36.9 C 36.4 C L Pulse Rate 118 H 116 H Respiratory Rate 21 H 16 Blood Pressure 135/95 H 142/99 H Pulse Oximetry 96 100 Oxygen Delivery 07/02/24 10:19 07/02/24 11:02 07/02/24 11:57 Temperature Pulse Rate 135 H 120 H Respiratory Rate 18 Blood Pressure 101/68 Pulse Oximetry 100 Oxygen Delivery Room Air 07/02/24 12:00 07/02/24 12:00 07/02/24 14:00 Temperature 36.8 C Pulse Rate 128 H 121 H 125 H Respiratory Rate 24 H Blood Pressure 145/99 H Pulse Oximetry 98 Oxygen Delivery 07/02/24 15:46 07/02/24 16:00 Temperature 36.4 C L Pulse Rate 125 H 125 H Respiratory Rate 20 20 Blood Pressure 144/98 H Pulse Oximetry 98 98 Oxygen Delivery Room Air Exam Const: General: comfortable, no acute distress, alert, awake and tired appearing Orientation/consciousness: patient oriented x3 and No confusion HENMT: Head: normocephalic and atraumatic Mouth: Yes Normal oral and palatal mucosa present Eyes: Conjunctivae: conjunctivae normal Pupils: Equal, round and reactive pupils present EOM: EOMs intact bilaterally Neck: Neck: normal visual inspection, no lymphadenopathy and nontender Resp: Effort & Inspection: normal respiratory effort Auscultation: clear to auscultation bilaterally Cardio: Rate: regular rate Rhythm: regular rhythm Heart sounds: no gallops, no murmurs and no rubs GI: Inspection: no abdominal wall ecchymosis, distended, scar (Deep chronic scar midline over most of the abdomen.) and visible herniation (Small umbilical hernia) GI Palp: Yes abdominal tenderness (More in the central abdomen.), No Guarding due to palpation present (GI), No Rigid due to palpation, No Hepatomegaly present, No Splenomegaly present, No Hernia present, No Palpable mass present and No Rebound tenderness present Auscultation: abnormal bowel sounds and High-pitched bowel sounds present (Some tingling bowel sounds noted) : Male General Exam: Yes other (Left inguinal scar from hernia repair 6 months ago) Skin: Lesions: no lesions Rashes: no rashes Neuro: General: no focal motor deficits and CN's II-XI intact bilaterally Cranial nerves: Yes Equal, round and reactive pupils present, Yes Bilaterally intact EOM present, Yes facial symmetry and Yes Midline tongue present Speech: normal speech Motor exam (neuro): 5/5 motor strength present throughout and Motor abnormalities not present Extrem: General: no clubbing, cyanosis or edema and edema Psych: Affect: normal affect Thought process: Normal thought process present Insight: Good insight present (Psych) Results Labs 07/02/24 04:04 07/02/24 04:04 Labs: Abnormal lab results 07/02/24 07/02/24 Range/Units 04:04 06:47 WBC 13.1 H (4.5-10.0) K/mm3 Hgb 19.4 H (14.0-18.0) g/dL Hct 57.4 H (42.0-52.0) % Neutrophils % (Manual) 75 H (46-73) % Lymphocytes % (Manual) 6.0 L (18-44) % Monocytes % (Manual) 14 H (3-9) % Abs Neuts (Manual) 10.48 H (1.3-6.7) K/mm3 Abs Lymphs (Manual) 0.78 L (1.1-4.5) K/mm3 Abs Monocytes (Manual) 1.83 H (0.1-0.90) K/mm3 Sodium 132 L (137-145) mmol/L Chloride 92 L (98-107) mmol/L Carbon Dioxide 10 L (22-30) mmol/L Anion Gap 30 H (4-12) mmol/L BUN 38 H (9-20) mg/dL Creatinine 5.80 H (0.7-1.3) mg/dL Estimated GFR 11 L (59 - ) Glucose 296 H (65-110) mg/dL Lactic Acid 3.7 H (0.7-2.0) mmol/L Calcium 11.0 H (8.4-10.2) mg/dL Magnesium 2.9 H (1.6-2.3) mg/dL Alkaline Phosphatase 150 H (38-126) U/L NT-Pro-B Natriuret Pep 355 H (19.9-100) pg/mL Total Protein 11.0 H (6.3-8.2) g/dL Albumin 5.6 H (3.5-5.1) g/dL Lipase 582 H (23-300) U/L Urine Appearance Turbid H (Clear) Urine Protein 3+ H (Negative) mg/dL Urine Glucose (UA) Trace H (Negative) mg/dL Urine Ketones Trace H (Negative) mg/dL Urine Bilirubin 2+ H (Negative) Leukocyte Esterase Rfl Trace H (Negative) BEN/UL Urine WBC 21-50 H (0-3) /hpf Diabetes panel 07/02/24 Range/Units 04:04 Sodium 132 L (137-145) mmol/L Potassium 4.1 (3.4-5.0) mmol/L Chloride 92 L (98-107) mmol/L Carbon Dioxide 10 L (22-30) mmol/L BUN 38 H (9-20) mg/dL Creatinine 5.80 H (0.7-1.3) mg/dL Glucose 296 H (65-110) mg/dL Calcium 11.0 H (8.4-10.2) mg/dL AST 30 (17-59) U/L ALT 27 (6-50) U/L Alkaline Phosphatase 150 H (38-126) U/L Total Protein 11.0 H (6.3-8.2) g/dL Albumin 5.6 H (3.5-5.1) g/dL Calcium panel 07/02/24 Range/Units 04:04 Calcium 11.0 H (8.4-10.2) mg/dL Albumin 5.6 H (3.5-5.1) g/dL Pituitary panel 07/02/24 Range/Units 04:04 Sodium 132 L (137-145) mmol/L Potassium 4.1 (3.4-5.0) mmol/L Chloride 92 L (98-107) mmol/L Carbon Dioxide 10 L (22-30) mmol/L BUN 38 H (9-20) mg/dL Creatinine 5.80 H (0.7-1.3) mg/dL Glucose 296 H (65-110) mg/dL Calcium 11.0 H (8.4-10.2) mg/dL Adrenal panel 07/02/24 Range/Units 04:04 Sodium 132 L (137-145) mmol/L Potassium 4.1 (3.4-5.0) mmol/L Chloride 92 L (98-107) mmol/L Carbon Dioxide 10 L (22-30) mmol/L BUN 38 H (9-20) mg/dL Creatinine 5.80 H (0.7-1.3) mg/dL Glucose 296 H (65-110) mg/dL Calcium 11.0 H (8.4-10.2) mg/dL Total Bilirubin 0.9 (0.2-1.3) mg/dL AST 30 (17-59) U/L ALT 27 (6-50) U/L Alkaline Phosphatase 150 H (38-126) U/L Total Protein 11.0 H (6.3-8.2) g/dL Albumin 5.6 H (3.5-5.1) g/dL All other labs normal. Imaging Abdominal x-ray: report reviewed and image reviewed Abdomen CT scan report/results: report reviewed and image reviewed (See HPI) CT scan - pelvis: report reviewed and image reviewed
[2024-07-02 17:32] LABS: Glucose Point of Care 162 mg/dl (65-105)
[2024-07-02] MEDS: SODIUM CHLORIDE 0.9% IV 1,000 ML 200 ML IV CONT (17:39)
[2024-07-02] MEDS: MORPHINE SULFATE (*CRX) 2 MG/ML INJ IV PUSH ×2 (17:46→23:52)
--- NOTE | 2024-07-02 17:55 | PC.NURSE ---
Spoke with pt's mother, Padmini, at bedside. Padmini states that pt drinks hard liquor daily. She is unaware of the amount that he drinks. She believes his last known drink was 06/30/24. Pt is starting to hallucinate, become anxious, fidgety, and keeps grabbing for the NG tube. RN notified Dr. Hercules of family concerns and pt's condition. New order for CIWA protocol and mitten restraints.
[2024-07-02] MEDS: LORazepam INJ (*CRX) 2 MG/ML VIAL IV PUSH ×2 (18:10→21:21)
[2024-07-03] VITALS (17 sets, daily range): BP systolic 141–161; BP diastolic 90–98; PULSE 93–136; RESP 18–20; TEMP 36.3–37.1; O2SAT 95–100
[2024-07-03] MEDS: SODIUM CHLORIDE 0.9% IV 1,000 ML 200 ML IV CONT ×4 (00:01→17:39)
[2024-07-03 00:18] LABS: Glucose Point of Care 166 mg/dl (65-105)
[2024-07-03 04:27] LABS: Hematocrit 47.5 % (42.0-52.0); Hemoglobin 16.6 g/dL (14.0-18.0); Mean Corpuscular HGB Conc 34.9 g/dl (32-36); Mean Corpuscular Volume 91.7 fl (80-100); Platelet Count Result 240 k/mm3 (150-375); Red Blood Count 5.18 M/mm3 (4.6-6.20); Red Cell Distribution Width 12.8 % (11.5-14.5); White Blood Count 11.9 K/mm3 (4.5-10.0)
[2024-07-03 04:37] LABS: Alanine Aminotransferase 23 U/L (6-50); Albumin Level 4.3 g/dL (3.5-5.1); Alkaline Phosphatase 99 U/L (38-126); Anion Gap 15 mmol/L (4-12); Aspartate Amino Transferase 43 U/L (17-59); Bilirubin,Total 0.7 mg/dL (0.2-1.3); Blood Urea Nitrogen 38 mg/dL (9-20); Calcium 9.3 mg/dL (8.4-10.2); Carbon Dioxide 16 mmol/L (22-30); Chloride 105 mmol/L (98-107); Estimated CRCL calculation 68 ml/min; Estimated Glomerular Filt Rate 49; Glucose 141 mg/dL (65-110); Magnesium 2.2 mg/dL (1.6-2.3); Potassium 4.5 mmol/L (3.4-5.0); Sodium 136 mmol/L (137-145)
[2024-07-03] MEDS: LORazepam INJ (*CRX) 2 MG/ML VIAL IV PUSH ×2 (04:54→19:49)
[2024-07-03] MEDS: metroNIDAZOLE 500 MG/ISO 100ML 500 MG/100 ML BAG 100 MG IVPB ×3 (05:05→20:47)
[2024-07-03 05:33] LABS: Hemoglobin A1C 5.7 % (<5.7)
[2024-07-03] MEDS: THIAMINE HCL 200 MG/2 ML VIAL 100 MG IV PUSH (08:57)
[2024-07-03] MEDS: FOLIC ACID 1 MG/0.2 ML INJ IV PUSH (08:58)
--- NOTE | 2024-07-03 10:07 | PM.IMPN ---
Progress Note: A&P Assessment and Plan (1) Sepsis: Code(s): A41.9 - Sepsis, unspecified organism Status: Acute Assessment and Plan: - Met Sepsis Criteria on admission: Tachycardic, tachypnea, leukocytosis. - Infectious etiology unclear at this point, possibly from dehydration. - Continue to follow cultures. - CT abdomen with no abscess. - CXR with no infiltrates. - Continue Rocephin and Flagyl. - Continue IV fluid hydration. - Continue to monitor closely. (2) Complete obstruction of small intestine: Code(s): K56.601 - Complete intestinal obstruction, unspecified as to cause Status: Acute Assessment and Plan: CT abd/pelvis: 07/02 There is marked distention of stomach and proximal small bowel loops, with transition point in the anterior mid abdomen just deep to the umbilicus. Findings are compatible with high-grade small bowel obstruction. Distal small bowel and large bowel are relatively decompressed. - Pt has undergone 3 small bowel resection phases for Meckel's diverticulum, last 2 for adhesions. - NPO for now with ice-chips. - General surgery following. - Conservative mgt for now with NPO and IVF hydration. - Follow serial X-Rays. - Supportive care with pain meds PRN. (3) Acute kidney injury: Code(s): N17.9 - Acute kidney failure, unspecified Status: Acute Assessment and Plan: - Likely pre-renal with poor PO intake and alcohol abuse. - Much improved with IVF hydration. - Monitor renal panel closely with IVF hydration. - Avoid nephrotoxins. (4) Alcohol withdrawal delirium: Code(s): F10.931 - Alcohol use, unspecified with withdrawal delirium Status: Acute Assessment and Plan: - Continue CIWA protocol. - Currently on wrist restraints. - Sitter bedside. - Safety monitoring and assist with care. Plan Continue NPO with IVF hydration, CIWA protocol with safety monitoring, general surgeon following. Time Spent With Patient Time with patient: 25 - 35 minutes Subjective Date/time seen: 07/03/24 10:07 Patient confused and drowsy on bedrest. States he feels alright and has no pain or other distressful symptoms. Interval history: Patient confused and drowsy on bedrest but wakes up briefly to verbal stimuli. Patient confused overnight and pulled out N-G tube, attempted to pull out IV as well. He was initially placed on mittens but with continued aggression, pt was placed on non-violent wrist restraints. Patient was-suspected of withdrawing from alcohol, with the family reporting patient drinking alcohol heavily. Patient was placed on CIWA protocol and is being monitored closely, with sitter bedside. Review of Systems Review of Systems: All other systems reviewed and negative except as noted in the history above. ROS unobtainable: Yes unobtainable due to mental status Exam Narrative: HEENT: Atraumatic, PERRL, EOM, moist mucosa, N-G intact. NECK: Supple. Lungs: Clear bilaterally. Heart: Tachycardia, no murmurs. Abdomen: Soft, non-tender, non-distended, hypoactive bowel sounds X4 quadrants. Extremities: No cyanosis, 2+ radial and pedal pulses, no edema. Skin: Warm, dry and intact. No lesions noted. Neuro: Drowsy and confused. No focal neuro deficits noted. Psych: Oriented to self and just mumbles. Objective Data Vital Signs Vital Signs: Vital Signs - 24 hr 07/02/24 10:19 07/02/24 11:02 07/02/24 11:57 Temperature Pulse Rate 135 H 120 H Pulse Rate [Monitor] Respiratory Rate 18 Blood Pressure 101/68 Pulse Oximetry 100 Oxygen Delivery Room Air 07/02/24 12:00 07/02/24 12:00 07/02/24 14:00 Temperature 98.3 F Pulse Rate 128 H 121 H 125 H Pulse Rate [Monitor] Respiratory Rate 24 H Blood Pressure 145/99 H Pulse Oximetry 98 Oxygen Delivery 07/02/24 15:46 07/02/24 16:00 07/02/24 16:00 Temperature 97.5 F L Pulse Rate 125 H 125 H 139 H Pulse Rate [Monitor] Respiratory Rate 20 20 Blood Pressure 144/98 H Pulse Oximetry 98 98 Oxygen Delivery Room Air 07/02/24 18:00 07/02/24 20:52 07/02/24 20:00 Temperature 98.6 F Pulse Rate 124 H 124 H Pulse Rate [Monitor] 124 H Respiratory Rate 20 Blood Pressure 153/99 H 153/99 H Pulse Oximetry 97 Oxygen Delivery 07/02/24 20:00 07/02/24 20:00 07/02/24 23:26 Temperature 98.7 F Pulse Rate 125 H 124 H Pulse Rate [Monitor] Respiratory Rate Blood Pressure 149/94 H Pulse Oximetry 98 Oxygen Delivery Room Air 07/02/24 22:00 07/03/24 00:00 07/03/24 00:00 Temperature Pulse Rate 124 H Pulse Rate [Monitor] 124 H Respiratory Rate Blood Pressure 149/94 H Pulse Oximetry Oxygen Delivery Room Air 07/03/24 00:00 07/03/24 03:33 07/03/24 04:00 Temperature 98.6 F Pulse Rate 119 H 110 H Pulse Rate [Monitor] 110 H Respiratory Rate 20 Blood Pressure 141/98 H 141/98 H Pulse Oximetry 96 Oxygen Delivery 07/03/24 04:00 07/03/24 02:00 07/03/24 04:00 Temperature Pulse Rate 114 H 106 H Pulse Rate [Monitor] Respiratory Rate Blood Pressure Pulse Oximetry Oxygen Delivery Room Air 07/03/24 06:00 07/03/24 08:00 07/03/24 08:00 Temperature 98.6 F Pulse Rate 105 H 107 H Pulse Rate [Monitor] 104 H Respiratory Rate 20 Blood Pressure 141/98 H Pulse Oximetry 100 Oxygen Delivery 07/03/24 08:00 07/03/24 08:00 Temperature Pulse Rate 100 104 H Pulse Rate [Monitor] Respiratory Rate 20 Blood Pressure Pulse Oximetry 100 Oxygen Delivery Room Air Intake/Output Intake/Output: Intake & Output 06/30/24 07/01/24 07/02/24 07/03/24 23:59 23:59 23:59 23:59 Intake Total 7059 1100 Output Total 6150 2200 Balance 909 -1100 Meds/Results Medications: Active Medications Generic Name Dose Route Start Last Admin Trade Name Freq PRN Reason Stop Dose Admin Dextrose 12.5 gm 07/02/24 14:18 Dextrose 50% 25 Gm/50 Ml Syringe IV PUSH PRN PRN Hypoglycemia Protocol Folic Acid 1 mg 07/03/24 09:00 07/03/24 08:58 Folic Acid 1 Mg/0.2 Ml Inj IV PUSH 1 mg QAM EMILE Administration Glucagon 1 mg 07/02/24 14:18 Glucagon For Inj 1 Mg Vial IM PRN PRN Hypoglycemia Protocol Glucose 15 gm 07/02/24 14:18 Glucose Oral Gel 15 Gm Of Glucse In 37.5 Gm Tube PO PRN PRN Hypoglycemia Protocol Ceftriaxone Sodium 1 gm in 50 mls @ 100 mls/hr 07/03/24 09:00 07/03/24 08:52 Rocephin 1 Gm/Ns 50 Ml IVPB 100 mls/hr Q24H EMILE Administration Metronidazole 500 mg in 100 mls @ 100 mls/hr 07/02/24 21:00 07/03/24 06:05 Flagyl 500 Mg/Iso Soln 100 Ml IVPB Infused Q8HR EMILE Infusion Dextrose 1,000 mls @ 100 mls/hr 07/02/24 14:18 Dextrose 5% 1,000 Ml IVPB PRN PRN Hypoglycemia Protocol Sodium Chloride 1,000 mls @ 200 mls/hr 07/02/24 17:05 07/03/24 04:52 Normal Saline Iv IV CONT 200 mls/hr .Q5H EMILE Administration Insulin Aspart 2 - 5 units 07/02/24 18:00 07/03/24 05:32 Insulin Aspart (*Bkc) 100 Units/Ml SUB-Q Not Given Q6HR EMILE Protocol Lorazepam 2 mg 07/02/24 17:53 07/02/24 18:10 Lorazepam Inj (*Crx) 2 Mg/Ml Vial IV PUSH 2 mg Q2H PRN Administration CIWA > 15 Lorazepam 2 mg 07/02/24 17:53 07/03/24 04:54 Lorazepam Inj (*Crx) 2 Mg/Ml Vial IV PUSH 2 mg Q4H PRN Administration CIWA 8-15 Morphine Sulfate 2 mg 07/02/24 16:38 07/02/24 23:52 Morphine Sulfate (*Crx) 2 Mg/Ml Inj IV PUSH 2 mg Q4H PRN Administration Pain Rated 7-10 Ondansetron HCl 4 mg 07/02/24 10:07 07/02/24 17:46 Ondansetron Inj 4 Mg/2 Ml Vial IV PUSH 4 mg Q4H PRN Administration Nausea Phenol 1 spray 07/02/24 12:12 Phenol/Sod Pheno [place] Mendez (*Bkc) MUCOUS MEM PRN PRN Sore Throat Thiamine HCl 100 mg 07/03/24 09:00 07/03/24 08:57 Thiamine Hcl 200 Mg/2 Ml Vial IV PUSH 100 mg DAILY EMILE Administration Radiology Results: ITS Impressions Abdomen/Pelvis CT 07/02/24 08:21 Impression: Findings compatible high-grade small bowel obstruction, transition point as detailed above. Chest X-Ray 11/17/24 09:58 Impression: Clear lungs. NG tube in place. Abdomen X-Ray 07/03/24 08:59 IMPRESSION: Dilated small bowel loops suggestive of obstruction. Clinical correlation and follow-up advised. Labs Labs: Laboratory Results - last 24 hr 07/02/24 07/02/24 07/03/24 04:04 17:29 00:06 WBC RBC Hgb Hct MCV MCH MCHC RDW Plt Count MPV Immature Gran % (Auto) Neut % (Auto) Lymph % (Auto) Bullock % (Auto) Eos % (Auto) Baso % (Auto) Lymph # (Auto) Bullock # (Auto) Eos # (Auto) Baso # (Auto) Abs Immat Gran (auto) Absolute Neuts (auto) Absolute Nucleated RBC Nucleated RBC % Sodium Potassium Chloride Carbon Dioxide Anion Gap BUN Creatinine Estim Creat Clear Calc Estimated GFR Glucose POC Capillary Glucose 162 H 166 H Hemoglobin A1c Lactic Acid Calcium Magnesium Total Bilirubin AST ALT Alkaline Phosphatase Total Protein Albumin Ref Lab Test Name Cancelled Ref Lab Test Result Cancelled 07/03/24 04:21 WBC 11.9 H RBC 5.18 Hgb 16.6 Hct 47.5 MCV 91.7 MCH 32.0 MCHC 34.9 RDW 12.8 Plt Count 240 MPV 10.0 Immature Gran % (Auto) Not Reportable Neut % (Auto) Not Reportable Lymph % (Auto) Not Reportable Bullock % (Auto) Not Reportable Eos % (Auto) Not Reportable Baso % (Auto) Not Reportable Lymph # (Auto) Not Reportable Bullock # (Auto) Not Reportable Eos # (Auto) Not Reportable Baso # (Auto) Not Reportable Abs Immat Gran (auto) Not Reportable Absolute Neuts (auto) Not Reportable Absolute Nucleated RBC Not Reportable Nucleated RBC % Not Reportable Sodium 136 L Potassium 4.5 Chloride 105 Carbon Dioxide 16 L Anion Gap 15 H BUN 38 H Creatinine 1.60 H Estim Creat Clear Calc 68 Estimated GFR 49 L Glucose 141 H POC Capillary Glucose Hemoglobin A1c 5.7 Lactic Acid 1.0 Calcium 9.3 Magnesium 2.2 Total Bilirubin 0.7 AST 43 ALT 23 Alkaline Phosphatase 99 Total Protein 8.0 Albumin 4.3 Ref Lab Test Name Ref Lab Test Result Quality VTE Prophylaxis VTE prophylaxis: mechanical ordered Hospitalist MIPS Advance Care Plan I have confirmed that the patient's Advanced Care Plan is present, code status is documented, or surrogate decision maker is listed in patient medical record.: Yes Medication Reconciliation I have utilized all available resources to obtain, update and review the patients current medications (includes all prescriptions, OTC, herbals, cannabis, and nutritional supplements).: Yes
--- NOTE | 2024-07-03 10:27 | PC.NURSE ---
Called MD to discuss patient request for anxiety medications and pain medications. Alert and oriented at this time. CIWA assessment completed at this time and score is 4. Patient initially denied pain. Discussed with patient that his CIWA score was a 4 and that at this time he doesn't qualify for anxiety medications based on current orders. Furthermore, discussed that this RN would need to contact the doctor for orders to give medications. The patient immediately asked for pain medications, stating well then, what about my pain meds ? This RN asked, are you having pain at this time? Stated I am starting to have a little cramping . When asked pain score on a scale 0/10, states pain is at a 4. This RN discussed with patient that based on his pain score he does not meet the ordered requirements for pain medication at this time. But that I would discuss his concerns of pain with the doctor as well. Verbalized understanding. Family at bedside during conversation. This RN called the doctor to report the complaints of anxiety and pain. MD states I was just in his room to assess him and he was very drowsy . This RN agreed that while the patient still remains drowsy, he is more awake than this morning and was able to answer all questions related to serial neuro assessment. MD stated at this time there is No to pain meds and anxiety medications at this time . States Do not give him anything before 1pm . This RN verbalized understanding. This RN went back into the room to discuss with patient. His eyes were closed and he appeared to be sleeping. This RN updated the patients family member (mother), and she verbalized understanding. States I don't think he needs anything, its like he forgets he asked as soon as you leave he goes back to sleep .
--- NOTE | 2024-07-03 11:24 | PC.NURSE ---
alert and oriented at this time. Follows simple commands, yet remains drowsy. Denies pain. Latest CIWA score 4. Vital signs remain stable. Restraints removed at this time. Verbalizes understanding to not pull on IV lines or NG tube. Sitter remains at the bedside. Discussed plan of care including reoriented patient to previous medications given. strapper operator remains on and functioning at this time. No acute distress noted at this time.
[2024-07-03 11:54] LABS: Glucose Point of Care 131 mg/dl (65-105)
[2024-07-03] MEDS: ONDANSETRON INJ 4 MG/2 ML VIAL IV PUSH (13:55)
--- NOTE | 2024-07-03 13:58 | P.PNGS_ITS ---
Progress Note: A&P Assessment and Plan (1) Obstruction of small intestine due to peritoneal adhesion: Code(s): K56.50 - Intestinal adhesions [bands], unspecified as to partial versus complete obstruction Status: Acute Assessment and Plan: CT scan showed high-grade small bowel obstruction with transition point in the anterior abdomen near his umbilicus and previous midline scar. He is still having high NG output with almost 7 liters out in the past 24 hours. He was severely dehydrated with TYLER, which is improving with IV fluid hydration. His abdominal x-ray this morning still shows a small bowel obstruction. Will continue NG tube decompression, bowel rest, and IV fluids again today. Will repeat imaging and abdominal exam again tomorrow. (2) Acute kidney injury: Code(s): N17.9 - Acute kidney failure, unspecified Status: Acute Assessment and Plan: Improving with IV fluids, Creatinine down to 1.6, creatinine clearance significantly improved from 19 up to 68 (3) Dehydration, severe: Code(s): E86.0 - Dehydration Status: Acute Assessment and Plan: Improving, Continue IV fluid hydration (4) Alcohol withdrawal delirium: Code(s): F10.931 - Alcohol use, unspecified with withdrawal delirium Status: Acute Assessment and Plan: Continue CIWA protocol, management per Hospitalist, IV Ativan as needed while NPO Plan I have discussed the patient's case and plan of care with Dr. Mccann. Subjective Subjective Date/Time Seen: 07/03/24 08:58 Interval history: Patient is seen in IMU with his mother at the bedside. She answers majority of the questions for the patient as he is confused and having visual hallucinations. He is currently in soft wrist restraints so that he does not pull out the NG tube. She reports he has been confused all morning since she has been here. He denies any abdominal pain when asked but proceeds to talk about his job and it is not clear if he is understanding what I am asking. He is disoriented to place and time. His NG tube has documented about 4 liters of output yesterday during dayshift and another 2,000 cc output overnight on night cleaner. The tech in the room just changed his NG canister and reported another 7 00 cc out this morning just in the last 3 hours. No documented bowel movements. Good urine output. TYLER improving. His mother reports he has been dealing with depression for the past 2 years and is going through a divorce. He has been taking multiple different anti anxiety medications, as well as prescribe narcotics for pain with his recent surgery. She reports his alcohol use has been increasing since his divorce. She is not sure how much he drinks, but states that she suspected heavy alcohol use. Review of Systems Review of Systems: ROS unobtainable: Yes unobtainable due to mental status Exam Const: General: no acute distress and ill appearing Orientation/consciousness: oriented to person, No oriented to place, No oriented to time, confusion and lethargic Limitations: altered mental status GI: Inspection: distended, incision (Left groin incision from recent open inguinal hernia repair, healing well) and scar (Large midline scar) GI Palp: Yes Soft to palpation, Yes Tenderness to palpation present (GI), No Guarding due to palpation present (GI) and No Rebound tenderness present Auscultation: absent bowel sounds Other: NG tube with green bilious output Urinary Catheter: Urinary Catheter: patent and draining and urine clear Objective Data Vital Signs Vital Signs: Vital Signs - 24 hr 07/02/24 14:00 07/02/24 15:46 07/02/24 16:00 Temperature 97.5 F L Pulse Rate 125 H 125 H 125 H Pulse Rate [Monitor] Respiratory Rate 20 20 Blood Pressure 144/98 H Pulse Oximetry 98 98 Oxygen Delivery Room Air 07/02/24 16:00 07/02/24 18:00 07/02/24 20:52 Temperature 98.6 F Pulse Rate 139 H 124 H 124 H Pulse Rate [Monitor] Respiratory Rate 20 Blood Pressure 153/99 H Pulse Oximetry 97 Oxygen Delivery 07/02/24 20:00 07/02/24 20:00 07/02/24 20:00 Temperature Pulse Rate 125 H Pulse Rate [Monitor] 124 H Respiratory Rate Blood Pressure 153/99 H Pulse Oximetry Oxygen Delivery Room Air 07/02/24 23:26 07/02/24 22:00 07/03/24 00:00 Temperature 98.7 F Pulse Rate 124 H 124 H Pulse Rate [Monitor] Respiratory Rate Blood Pressure 149/94 H Pulse Oximetry 98 Oxygen Delivery Room Air 07/03/24 00:00 07/03/24 00:00 07/03/24 03:33 Temperature 98.6 F Pulse Rate 119 H 110 H Pulse Rate [Monitor] 124 H Respiratory Rate 20 Blood Pressure 149/94 H 141/98 H Pulse Oximetry 96 Oxygen Delivery 07/03/24 04:00 07/03/24 04:00 07/03/24 02:00 Temperature Pulse Rate 114 H Pulse Rate [Monitor] 110 H Respiratory Rate Blood Pressure 141/98 H Pulse Oximetry Oxygen Delivery Room Air 07/03/24 04:00 07/03/24 06:00 07/03/24 08:00 Temperature Pulse Rate 106 H 105 H Pulse Rate [Monitor] 104 H Respiratory Rate Blood Pressure Pulse Oximetry Oxygen Delivery 07/03/24 08:00 07/03/24 08:00 07/03/24 08:00 Temperature 98.6 F Pulse Rate 107 H 100 104 H Pulse Rate [Monitor] Respiratory Rate 20 20 Blood Pressure 141/98 H Pulse Oximetry 100 100 Oxygen Delivery Room Air 07/03/24 10:00 07/03/24 10:00 07/03/24 11:50 Temperature 98.2 F Pulse Rate 105 H 106 H Pulse Rate [Monitor] 105 H Respiratory Rate 18 Blood Pressure 152/91 H Pulse Oximetry 100 Oxygen Delivery Intake/Output Intake/Output: Intake & Output 06/30/24 07/01/24 07/02/24 07/03/24 23:59 23:59 23:59 23:59 Intake Total 7059 2100 Output Total 6150 2750 Balance 909 -650 Meds/Results Medications: Active Medications Generic Name Dose Route Start Last Admin Trade Name Freq PRN Reason Stop Dose Admin Dextrose 12.5 gm 07/02/24 14:18 Dextrose 50% 25 Gm/50 Ml Syringe IV PUSH PRN PRN Hypoglycemia Protocol Folic Acid 1 mg 07/03/24 09:00 07/03/24 08:58 Folic Acid 1 Mg/0.2 Ml Inj IV PUSH 1 mg QAM EMILE Administration Glucagon 1 mg 07/02/24 14:18 Glucagon For Inj 1 Mg Vial IM PRN PRN Hypoglycemia Protocol Glucose 15 gm 07/02/24 14:18 Glucose Oral Gel 15 Gm Of Glucse In 37.5 Gm Tube PO PRN PRN Hypoglycemia Protocol Ceftriaxone Sodium 1 gm in 50 mls @ 100 mls/hr 07/03/24 09:00 07/03/24 08:52 Rocephin 1 Gm/Ns 50 Ml IVPB 100 mls/hr Q24H EMILE Administration Metronidazole 500 mg in 100 mls @ 100 mls/hr 07/02/24 21:00 07/03/24 13:40 Flagyl 500 Mg/Iso Soln 100 Ml IVPB 100 mls/hr Q8HR EMILE Administration Dextrose 1,000 mls @ 100 mls/hr 07/02/24 14:18 Dextrose 5% 1,000 Ml IVPB PRN PRN Hypoglycemia Protocol Sodium Chloride 1,000 mls @ 200 mls/hr 07/02/24 17:05 07/03/24 11:39 Normal Saline Iv IV CONT 200 mls/hr .Q5H EMILE Administration Insulin Aspart 2 - 5 units 07/02/24 18:00 07/03/24 12:17 Insulin Aspart (*Bkc) 100 Units/Ml SUB-Q Not Given Q6HR EMILE Protocol Lorazepam 2 mg 07/02/24 17:53 07/02/24 18:10 Lorazepam Inj (*Crx) 2 Mg/Ml Vial IV PUSH 2 mg Q2H PRN Administration CIWA > 15 Lorazepam 2 mg 07/02/24 17:53 07/03/24 04:54 Lorazepam Inj (*Crx) 2 Mg/Ml Vial IV PUSH 2 mg Q4H PRN Administration CIWA 8-15 Morphine Sulfate 2 mg 07/02/24 16:38 07/02/24 23:52 Morphine Sulfate (*Crx) 2 Mg/Ml Inj IV PUSH 2 mg Q4H PRN Administration Pain Rated 7-10 Ondansetron HCl 4 mg 07/02/24 10:07 07/03/24 13:55 Ondansetron Inj 4 Mg/2 Ml Vial IV PUSH 4 mg Q4H PRN Administration Nausea Phenol 1 spray 07/02/24 12:12 Phenol/Sod Pheno [place] Mendez (*Bkc) MUCOUS MEM PRN PRN Sore Throat Thiamine HCl 100 mg 07/03/24 09:00 07/03/24 08:57 Thiamine Hcl 200 Mg/2 Ml Vial IV PUSH 100 mg DAILY EMILE Administration Radiology Results: ITS Impressions Abdomen/Pelvis CT 07/02/24 08:21 Impression: Findings compatible high-grade small bowel obstruction, transition point as detailed above. Chest X-Ray 07/02/24 09:58 Impression: Clear lungs. NG tube in place. Abdomen X-Ray 07/03/24 08:59 IMPRESSION: Dilated small bowel loops suggestive of obstruction. Clinical correlation and follow-up advised. Labs Labs: Laboratory Results - last 24 hr 07/02/24 07/02/24 07/03/24 04:04 17:29 00:06 WBC RBC Hgb Hct MCV MCH MCHC RDW Plt Count MPV Immature Gran % (Auto) Neut % (Auto) Lymph % (Auto) [place] % (Auto) Eos % (Auto) Baso % (Auto) Lymph # (Auto) [place] # (Auto) Eos # (Auto) Baso # (Auto) Abs Immat Gran (auto) Absolute Neuts (auto) Absolute Nucleated RBC Nucleated RBC % Sodium Potassium Chloride Carbon Dioxide Anion Gap BUN Creatinine Estim Creat Clear Calc Estimated GFR Glucose POC Capillary Glucose 162 H 166 H Hemoglobin A1c Lactic Acid Calcium Magnesium Total Bilirubin AST ALT Alkaline Phosphatase Total Protein Albumin Ref Lab Test Name Cancelled Ref Lab Test Result Cancelled 07/03/24 07/03/24 04:21 11:30 WBC 11.9 H RBC 5.18 Hgb 16.6 Hct 47.5 MCV 91.7 MCH 32.0 MCHC 34.9 RDW 12.8 Plt Count 240 MPV 10.0 Immature Gran % (Auto) Not Reportable Neut % (Auto) Not Reportable Lymph % (Auto) Not Reportable [place] % (Auto) Not Reportable Eos % (Auto) Not Reportable Baso % (Auto) Not Reportable Lymph # (Auto) Not Reportable [place] # (Auto) Not Reportable Eos # (Auto) Not Reportable Baso # (Auto) Not Reportable Abs Immat Gran (auto) Not Reportable Absolute Neuts (auto) Not Reportable Absolute Nucleated RBC Not Reportable Nucleated RBC % Not Reportable Sodium 136 L Potassium 4.5 Chloride 105 Carbon Dioxide 16 L Anion Gap 15 H BUN 38 H Creatinine 1.60 H Estim Creat Clear Calc 68 Estimated GFR 49 L Glucose 141 H POC Capillary Glucose 131 H Hemoglobin A1c 5.7 Lactic Acid 1.0 Calcium 9.3 Magnesium 2.2 Total Bilirubin 0.7 AST 43 ALT 23 Alkaline Phosphatase 99 Total Protein 8.0 Albumin 4.3 Ref Lab Test Name Ref Lab Test Result
[2024-07-03 18:27] LABS: Glucose Point of Care 100 mg/dl (65-105)
[2024-07-03] MEDS: MORPHINE SULFATE (*CRX) 2 MG/ML INJ IV PUSH (20:44)
[2024-07-03 23:57] LABS: Glucose Point of Care 121 mg/dl (65-105)
[2024-07-04] VITALS (15 sets, daily range): BP systolic 141–161; BP diastolic 92–97; PULSE 76–108; RESP 16–20; TEMP 36.5–36.8; O2SAT 94–100
[2024-07-04] MEDS: SODIUM CHLORIDE 0.9% IV 1,000 ML 200 ML IV CONT ×3 (01:21→13:21)
[2024-07-04 05:13] LABS: Basophils Percent Auto 0.3 % (0.2-1.2); Eosinophils Percent Auto 0.4 % (0-4.4); Hematocrit 43.2 % (42.0-52.0); Hemoglobin 14.9 g/dL (14.0-18.0); Immature Granulocyte Absolute 0.08 K/mm3 (0.00-0.031); Immature Granulocyte Percent A 0.8 % (0-0.5); Lymphocytes Percent Auto 9.3 % (18.3-44.2); Mean Corpuscular HGB Conc 34.5 g/dl (32-36); Mean Corpuscular Hemoglobin 31.8 pg (26-34); Mean Corpuscular Volume 92.3 fl (80-100); Mean Platelet Volume 10.1 fl (7.4-10.4); Monocytes Absolute Auto 1.3 K/mm3 (0.1-0.6); Monocytes Percent Auto 13.1 % (2.6-8.5); Neutrophils Absolute Auto 7.4 K/mm3 (1.3-6.7); Neutrophils Percent Auto 76.1 % (45.5-73.1); Platelet Count Result 226 k/mm3 (150-375); Red Blood Count 4.68 M/mm3 (4.6-6.20); Red Cell Distribution Width 12.8 % (11.5-14.5); White Blood Count 9.7 K/mm3 (4.5-10.0)
[2024-07-04 05:31] LABS: Anion Gap 8 mmol/L (4-12); Blood Urea Nitrogen 26 mg/dL (9-20); Calcium 9.2 mg/dL (8.4-10.2); Carbon Dioxide 24 mmol/L (22-30); Chloride 109 mmol/L (98-107); Estimated CRCL calculation 132 ml/min; Estimated Glomerular Filt Rate > 60; Glucose 99 mg/dL (65-110); Potassium 3.9 mmol/L (3.4-5.0); Sodium 141 mmol/L (137-145)
[2024-07-04] MEDS: metroNIDAZOLE 500 MG/ISO 100ML 500 MG/100 ML BAG 100 MG IVPB ×2 (06:43→13:21)
[2024-07-04] MEDS: THIAMINE HCL 200 MG/2 ML VIAL 100 MG IV PUSH (08:41)
[2024-07-04] MEDS: FOLIC ACID 1 MG/0.2 ML INJ IV PUSH (08:42)
--- NOTE | 2024-07-04 10:11 | PC.NURSE ---
Appears to have some confusion/forgetfulness related to plan of care. Discussed with patient plan of care related to NG tube placement, NPO status, pain management and activity. Verbalized understanding. However, as soon as this RN leaves the room the patient either puts his call light on or sends another person (i.e., maintenance shop technician, or sitter) to get me for various reasons, most of which are related to complaints of pain/cramping, or having something to drink. This RN discussed with the patient that at this time, he will need to remain NPO as we previously discussed because of his bowel obstruction. Patient states, why can't I have anything, if you are going to suction it out, like gatorade . Proceeds to say I get these all of the time and I need to stay hydrated . This RN reinforced teaching that the NG tube needs to remain in place, and that he is getting hydrated with IV fluids, and we are allowing him to have ice chips to keep his mouth from drying out (which he has had a couple of cups full this morning) . He immediately showed signs of frustration stating why don't you switch places with me . Then stating I should be able to pee on my own . This RN again educated, that you can infact use the urinal, we have removed your catheter . He then asked, well where is the bathroom . This RN, educated again, we have removed your catheter and provided you with a urinal that you can use on your own. We do not want you walking to the bathroom without assistance because first, your NG tube is hooked to wall suction, and second, you have been in bed for several days and we want to maintain your safety and reduce your risk of falls. When asked about pain, states I didn't want pain medicine, I wanted something for cramping . This RN again educated that he can't have anything orally at this time. Family member at bedside, stated Vin, you need to relax, you know this .
--- NOTE | 2024-07-04 10:20 | P.PNIM_ITS ---
Progress Note: A&P Assessment and Plan (1) Sepsis: Code(s): A41.9 - Sepsis, unspecified organism Status: Acute Assessment and Plan: - Met Sepsis Criteria on admission: Tachycardic, tachypnea, leukocytosis. - Infectious etiology unclear at this point, possibly from dehydration vs alcohol withdrawal. - Blood cx NGTD. - Continue to follow cultures. - CT abdomen with no abscess. - CXR with no infiltrates. - Continue Rocephin and Flagyl for now. - Continue IV fluid hydration. - Continue to monitor closely. (2) Complete obstruction of small intestine: Code(s): K56.601 - Complete intestinal obstruction, unspecified as to cause Status: Acute Assessment and Plan: CT abd/pelvis: 07/02 There is marked distention of stomach and proximal small bowel loops, with transition point in the anterior mid abdomen just deep to the umbilicus. Findings are compatible with high-grade small bowel obstruction. Distal small bowel and large bowel are relatively decompressed. - Pt has undergone 3 small bowel resection phases for Meckel's diverticulum, last 2 for adhesions. - Continue NPO with ice-chips. - General surgery following. - Conservative mgt for now with NPO and IVF hydration. - Repeat CXR this AM; Probable dilated small bowel loops are consistent with obstruction. 07/04/24 - Continue to follow serial X-Rays. - Supportive care with pain meds PRN. (3) Acute kidney injury: Code(s): N17.9 - Acute kidney failure, unspecified Status: Acute Assessment and Plan: - Resolved or progressing towards resolution. - Renal function currently normal. - Possibly pre-renal with poor PO intake and alcohol abuse. - Continue to monitor renal panel closely with IVF hydration. - Avoid nephrotoxins. (4) Alcohol withdrawal delirium: Code(s): F10.931 - Alcohol use, unspecified with withdrawal delirium Status: Acute Assessment and Plan: - Much improved. - Restraints and sitter discontinued. - Continue CIWA protocol. - Continue safety monitoring and assist with care. Plan Continue NPO with IVF hydration, CIWA protocol with safety monitoring, general surgeon following, follow serial XR abdomen. Time Spent With Patient Time with patient: 15 - 25 minutes Subjective Date/time seen: 07/04/24 10:20 Patient states he feels alright and wants something to eat. States his abdominal pain is almost gone and wants to walk the hallways. Interval history: Patient calm on bedrest, well oriented and appropriate, does not appear to be in no acute distress. Review of Systems Review of Systems: All other systems reviewed and negative except as noted in the history above. All systems reviewed & are unremarkable except as noted in HPI and below Exam Narrative: General: Well appearing and in no acute distress. HEENT: Atraumatic, PERRL, EOM, moist mucosa, N-G intact. NECK: Supple. Lungs: Clear bilaterally. Heart: Tachycardia, no murmurs. Abdomen: Soft, non-tender, mod-distention left-periumbilical region, +ve bowel sounds X4 quadrants. Extremities: No cyanosis, 2+ radial and pedal pulses, no edema. Skin: Warm, dry and intact. No lesions noted. Neuro: Alert and well oriented. No focal neuro deficits noted. Psych: Pleasant and co-operative. Objective Data Vital Signs Vital Signs: Vital Signs - 24 hr 07/03/24 11:50 07/03/24 12:00 07/03/24 12:00 Temperature 98.2 F Pulse Rate 106 H 106 H 111 H Pulse Rate [Monitor] Respiratory Rate 18 18 Blood Pressure 152/91 H Pulse Oximetry 100 100 Oxygen Delivery Room Air Fraction of Inspired Oxygen 07/03/24 14:00 07/03/24 15:47 07/03/24 16:00 Temperature 97.7 F Pulse Rate 107 H 113 H Pulse Rate [Monitor] 105 H Respiratory Rate 18 Blood Pressure 154/97 H 154/97 H Pulse Oximetry 98 Oxygen Delivery Fraction of Inspired Oxygen 07/03/24 16:00 07/03/24 16:00 07/03/24 18:00 Temperature Pulse Rate 113 H 105 H 93 Pulse Rate [Monitor] Respiratory Rate 18 Blood Pressure Pulse Oximetry 98 Oxygen Delivery Room Air Fraction of Inspired Oxygen 07/03/24 19:54 07/03/24 20:00 07/03/24 20:00 Temperature 97.3 F L Pulse Rate 133 H 133 H 136 H Pulse Rate [Monitor] Respiratory Rate 18 18 Blood Pressure 156/90 H Pulse Oximetry 96 96 Oxygen Delivery Room Air Fraction of Inspired Oxygen 07/03/24 22:00 07/03/24 23:59 07/04/24 00:00 Temperature 98.7 F Pulse Rate 115 H 108 H Pulse Rate [Monitor] 105 H Respiratory Rate 20 Blood Pressure 161/93 H 161/93 H Pulse Oximetry 95 Oxygen Delivery Fraction of Inspired Oxygen 07/04/24 00:00 07/04/24 00:00 07/04/24 04:00 Temperature 98.1 F Pulse Rate 108 H 108 H 88 Pulse Rate [Monitor] Respiratory Rate 20 18 Blood Pressure 154/92 H Pulse Oximetry 95 94 Oxygen Delivery Room Air Fraction of Inspired Oxygen 07/04/24 04:00 07/04/24 02:00 07/04/24 04:00 Temperature Pulse Rate 88 98 94 Pulse Rate [Monitor] Respiratory Rate 18 Blood Pressure Pulse Oximetry 94 Oxygen Delivery Room Air Fraction of Inspired Oxygen 07/04/24 05:57 07/04/24 08:00 07/04/24 09:13 Temperature 97.7 F Pulse Rate 90 95 Pulse Rate [Monitor] Respiratory Rate 20 Blood Pressure 150/97 H Pulse Oximetry 98 97 Oxygen Delivery Room Air Fraction of Inspired Oxygen 21 07/04/24 08:00 07/04/24 08:00 Temperature Pulse Rate 95 93 Pulse Rate [Monitor] Respiratory Rate 20 Blood Pressure Pulse Oximetry 97 Oxygen Delivery Room Air Fraction of Inspired Oxygen 21 Intake/Output Intake/Output: Intake & Output 07/01/24 07/02/24 07/03/24 07/04/24 23:59 23:59 23:59 23:59 Intake Total 7059 4350 1000 Output Total 6150 3675 1800 Balance 909 675 -800 Meds/Results Medications: Active Medications Generic Name Dose Route Start Last Admin Trade Name Freq PRN Reason Stop Dose Admin Dextrose 12.5 gm 07/02/24 14:18 Dextrose 50% 25 Gm/50 Ml Syringe IV PUSH PRN PRN Hypoglycemia Protocol Folic Acid 1 mg 07/03/24 09:00 07/04/24 08:42 Folic Acid 1 Mg/0.2 Ml Inj IV PUSH 1 mg QAM EMILE Administration Glucagon 1 mg 07/02/24 14:18 Glucagon For Inj 1 Mg Vial IM PRN PRN Hypoglycemia Protocol Glucose 15 gm 07/02/24 14:18 Glucose Oral Gel 15 Gm Of Glucse In 37.5 Gm Tube PO PRN PRN Hypoglycemia Protocol Ceftriaxone Sodium 1 gm in 50 mls @ 100 mls/hr 07/03/24 09:00 07/04/24 08:42 Rocephin 1 Gm/Ns 50 Ml IVPB 100 mls/hr Q24H EMILE Administration Metronidazole 500 mg in 100 mls @ 100 mls/hr 07/02/24 21:00 07/04/24 06:43 Flagyl 500 Mg/Iso Soln 100 Ml IVPB 100 mls/hr Q8HR EMILE Administration Dextrose 1,000 mls @ 100 mls/hr 07/02/24 14:18 Dextrose 5% 1,000 Ml IVPB PRN PRN Hypoglycemia Protocol Sodium Chloride 1,000 mls @ 200 mls/hr 07/02/24 17:05 07/04/24 06:45 Normal Saline Iv IV CONT 200 mls/hr .Q5H EMILE Administration Insulin Aspart 2 - 5 units 07/02/24 18:00 07/04/24 06:45 Insulin Aspart (*Bkc) 100 Units/Ml SUB-Q Not Given Q6HR COUNTS INCLUDE 234 BEDS AT [facility] Protocol Lorazepam 2 mg 07/02/24 17:53 07/03/24 19:49 Lorazepam Inj (*Crx) 2 Mg/Ml Vial IV PUSH 2 mg Q2H PRN Administration CIWA > 15 Lorazepam 2 mg 07/02/24 17:53 07/03/24 04:54 Lorazepam Inj (*Crx) 2 Mg/Ml Vial IV PUSH 2 mg Q4H PRN Administration CIWA 8-15 Morphine Sulfate 2 mg 07/02/24 16:38 07/03/24 20:44 Morphine Sulfate (*Crx) 2 Mg/Ml Inj IV PUSH 2 mg Q4H PRN Administration Pain Rated 7-10 Ondansetron HCl 4 mg 07/02/24 10:07 07/03/24 13:55 Ondansetron Inj 4 Mg/2 Ml Vial IV PUSH 4 mg Q4H PRN Administration Nausea Phenol 1 spray 07/02/24 12:12 Phenol/Sod Pheno [place] Mendez (*Bkc) MUCOUS MEM PRN PRN Sore Throat Thiamine HCl 100 mg 07/03/24 09:00 07/04/24 08:41 Thiamine Hcl 200 Mg/2 Ml Vial IV PUSH 100 mg DAILY EMILE Administration Radiology Results: ITS Impressions Abdomen/Pelvis CT 07/02/24 08:21 Impression: Findings compatible high-grade small bowel obstruction, transition point as detailed above. Chest X-Ray 07/02/24 09:58 Impression: Clear lungs. NG tube in place. Abdomen X-Ray 11/19/24 06:17 Impression: NG tube in place with small bowel obstruction. Labs Labs: Laboratory Results - last 24 hr 07/03/24 07/03/24 07/03/24 11:30 18:24 23:47 WBC RBC Hgb Hct MCV MCH MCHC RDW Plt Count MPV Immature Gran % (Auto) Neut % (Auto) Lymph % (Auto) [place] % (Auto) Eos % (Auto) Baso % (Auto) Lymph # (Auto) [place] # (Auto) Eos # (Auto) Baso # (Auto) Abs Immat Gran (auto) Absolute Neuts (auto) Absolute Nucleated RBC Nucleated RBC % Sodium Potassium Chloride Carbon Dioxide Anion Gap BUN Creatinine Estim Creat Clear Calc Estimated GFR Glucose POC Capillary Glucose 131 H 100 121 H Calcium 07/04/24 04:42 WBC 9.7 RBC 4.68 Hgb 14.9 Hct 43.2 MCV 92.3 MCH 31.8 MCHC 34.5 RDW 12.8 Plt Count 226 MPV 10.1 Immature Gran % (Auto) 0.8 H Neut % (Auto) 76.1 H Lymph % (Auto) 9.3 L [place] % (Auto) 13.1 H Eos % (Auto) 0.4 Baso % (Auto) 0.3 Lymph # (Auto) 0.90 [place] # (Auto) 1.3 H Eos # (Auto) 0.0 Baso # (Auto) 0.0 Abs Immat Gran (auto) 0.08 H Absolute Neuts (auto) 7.4 H Absolute Nucleated RBC 0.000 Nucleated RBC % 0.0 Sodium 141 Potassium 3.9 Chloride 109 H Carbon Dioxide 24 Anion Gap 8 BUN 26 H D Creatinine 0.80 Estim Creat Clear Calc 132 Estimated GFR > 60 Glucose 99 POC Capillary Glucose Calcium 9.2 Quality VTE Prophylaxis VTE prophylaxis: mechanical ordered Hospitalist MIPS Advance Care Plan I have confirmed that the patient's Advanced Care Plan is present, code status is documented, or surrogate decision maker is listed in patient medical record.: Yes Medication Reconciliation I have utilized all available resources to obtain, update and review the patients current medications (includes all prescriptions, OTC, herbals, cannabis, and nutritional supplements).: Yes
[2024-07-04 11:52] LABS: Glucose Point of Care 89 mg/dl (65-105)
[2024-07-04 14:31] LABS: Partial Thromboplastin Time 30.5 Seconds (22.3-36.8)
[2024-07-04 15:01] LABS: Transferrin 186 mg/dL (206-381)
--- NOTE | 2024-07-04 15:29 | P.PNGS_ITS ---
Progress Note: A&P Assessment and Plan (1) Obstruction of small intestine due to peritoneal adhesion: Code(s): K56.50 - Intestinal adhesions [bands], unspecified as to partial versus complete obstruction Status: Acute Assessment and Plan: * Plain films still suggesting a small bowel obstruction, although they look better today. He is still having high NG output, but he is also taking in a large quantity of ice chips which could be accounting for some of the documented NG output. * Will continue NG tube decompression, bowel rest, and IV fluids again today. I attempted to order PPN for nutrition, but there is a reaction with the IV ceftriaxone causing an insoluble precipitate when they are given together. So, we will hold off as he is starting to show some signs of improvement in regards to his bowel obstruction. * I will also discontinue his IV antibiotics as I do not see any infectious reason that would require antibiotic therapy at this time. * Will repeat KUB tomorrow morning. Depending on how he is progressing, we will consider ordering a water-soluble small bowel series tomorrow to further evaluate the obstruction. He may still require laparotomy if he continues to have evidence of a high-grade SBO despite conservative management. * Okay from our standpoint to downgrade the patient out of the IMU and to the medical floor (2) Acute kidney injury: Code(s): N17.9 - Acute kidney failure, unspecified Status: Acute Assessment and Plan: * Resolving with IV fluids. BUN/Cr down to 0.8 and 26. Will decrease IV fluids to 125 mL/hr. (3) Alcohol withdrawal delirium: Code(s): F10.931 - Alcohol use, unspecified with withdrawal delirium Status: Acute Assessment and Plan: * Delirium and mentation has improved. He is more appropriate today and no longer hallucinating. Soft wrist restraints were removed. * Continue CIWA protocol, management per Hospitalist, IV Ativan as needed while NPO Plan I have discussed the patient's case and plan of care with Dr. Mccann. Subjective Subjective Date/Time Seen: 07/04/24 15:29 Interval history: Patient alert and oriented x 3 today. His mother and other family is at the bedside. Per nursing, he has been more appropriate today and his mentation has improved. He is not trying to pull out the NG tube now that his delirium has improved and he is out of soft wrist restraints. He denies any abdominal pain at the time of my exam, but reports some generalized cramping abdominal pain earlier today. He reports flatus, but no BM. He had 1400 cc documented of NG output yesterday during day shift and another 1000 cc documented overnight. Per nursing, he has taken in a significant amount of ice chips today. He is asking for ice chips at least 1-2 times an hour. Exam Const: General: comfortable and no acute distress Orientation/cons ciousness: patient oriented x3 GI: Inspection: other (mildly distended) GI Palp: Yes Soft to palpation, Yes Tenderness to palpation present (GI) (tenderness in periumbilical area), No Guarding due to palpation present (GI) and No Rebound tenderness present Auscultation: normal bowel sounds Objective Data Vital Signs Vital Signs: Vital Signs - 24 hr 07/03/24 15:47 07/03/24 16:00 07/03/24 16:00 Temperature 97.7 F Pulse Rate 113 H 113 H Pulse Rate [Monitor] 105 H Respiratory Rate 18 18 Blood Pressure 154/97 H 154/97 H Pulse Oximetry 98 98 Oxygen Delivery Room Air Fraction of Inspired Oxygen 07/03/24 16:00 07/03/24 18:00 07/03/24 19:54 Temperature 97.3 F L Pulse Rate 105 H 93 133 H Pulse Rate [Monitor] Respiratory Rate 18 Blood Pressure 156/90 H Pulse Oximetry 96 Oxygen Delivery Fraction of Inspired Oxygen 07/03/24 20:00 07/03/24 20:00 07/03/24 22:00 Temperature Pulse Rate 133 H 136 H 115 H Pulse Rate [Monitor] Respiratory Rate 18 Blood Pressure Pulse Oximetry 96 Oxygen Delivery Room Air Fraction of Inspired Oxygen 07/03/24 23:59 07/04/24 00:00 07/04/24 00:00 Temperature 98.7 F Pulse Rate 108 H 108 H Pulse Rate [Monitor] 105 H Respiratory Rate 20 20 Blood Pressure 161/93 H 161/93 H Pulse Oximetry 95 95 Oxygen Delivery Room Air Fraction of Inspired Oxygen 07/04/24 00:00 07/04/24 04:00 07/04/24 04:00 Temperature 98.1 F Pulse Rate 108 H 88 88 Pulse Rate [Monitor] Respiratory Rate 18 18 Blood Pressure 154/92 H Pulse Oximetry 94 94 Oxygen Delivery Room Air Fraction of Inspired Oxygen 07/04/24 02:00 07/04/24 04:00 07/04/24 05:57 Temperature Pulse Rate 98 94 90 Pulse Rate [Monitor] Respiratory Rate Blood Pressure Pulse Oximetry Oxygen Delivery Fraction of Inspired Oxygen 07/04/24 08:00 07/04/24 09:13 07/04/24 08:00 Temperature 97.7 F Pulse Rate 95 95 Pulse Rate [Monitor] Respiratory Rate 20 20 Blood Pressure 150/97 H Pulse Oximetry 98 97 97 Oxygen Delivery Room Air Room Air Fraction of Inspired Oxygen 21 21 07/04/24 08:00 07/04/24 10:00 07/04/24 12:00 Temperature 97.9 F Pulse Rate 93 94 95 Pulse Rate [Monitor] Respiratory Rate 16 Blood Pressure 156/94 H Pulse Oximetry 100 Oxygen Delivery Fraction of Inspired Oxygen 07/04/24 12:00 07/04/24 12:00 07/04/24 12:00 Temperature Pulse Rate 101 H Pulse Rate [Monitor] 101 H Respiratory Rate Blood Pressure Pulse Oximetry Oxygen Delivery Room Air Fraction of Inspired Oxygen 07/04/24 14:00 Temperature Pulse Rate 98 Pulse Rate [Monitor] Respiratory Rate Blood Pressure Pulse Oximetry Oxygen Delivery Fraction of Inspired Oxygen Intake/Output Intake/Output: Intake & Output 07/01/24 07/02/24 07/03/24 07/04/24 23:59 23:59 23:59 23:59 Intake Total 7059 4350 2253.3 Output Total 6150 3675 1800 Balance 909 675 453.3 Meds/Results Medications: Active Medications Generic Name Dose Route Start Last Admin Trade Name Freq PRN Reason Stop Dose Admin Dextrose 12.5 gm 07/02/24 14:18 Dextrose 50% 25 Gm/50 Ml Syringe IV PUSH PRN PRN Hypoglycemia Protocol Folic Acid 1 mg 07/03/24 09:00 07/04/24 08:42 Folic Acid 1 Mg/0.2 Ml Inj IV PUSH 1 mg QAM EMILE Administration Glucagon 1 mg 07/02/24 14:18 Glucagon For Inj 1 Mg Vial IM PRN PRN Hypoglycemia Protocol Glucose 15 gm 07/02/24 14:18 Glucose Oral Gel 15 Gm Of Glucse In 37.5 Gm Tube PO PRN PRN Hypoglycemia Protocol Dextrose 1,000 mls @ 100 mls/hr 07/02/24 14:18 Dextrose 5% 1,000 Ml IVPB PRN PRN Hypoglycemia Protocol Sodium Chloride 1,000 mls @ 70 mls/hr 07/02/24 17:05 07/04/24 14:07 Normal Saline Iv IV CONT 70 mls/hr .[id number] [facility] Infusion Ibuprofen 800 mg in 200 mls @ 400 mls/hr 07/04/24 13:25 Caldolor 800 Mg/200 Ml IVPB Q6H PRN Pain Rated 4-6 Amino Acids/Electrolytes/Dextrose 2,000 mls @ 80 mls/hr 07/04/24 15:00 Clinimix E 4.25%/5% Solution IV CONT .Q24H [facility] Protocol Dextrose 1,000 mls @ 50 mls/hr 07/04/24 13:46 Dextrose 10% IV CONT .Q20H PRN if PN is interrupted Fat Emulsion Intravenous 250 mls @ 20.833 mls/hr 07/04/24 15:00 Lipids 20% IVPB QAM [facility] Insulin Aspart 2 - 5 units 07/02/24 18:00 07/04/24 13:22 Insulin Aspart (*Bkc) 100 Units/Ml SUB-Q Not Given Q6HR [facility] Protocol Lorazepam 2 mg 07/02/24 17:53 07/03/24 19:49 Lorazepam Inj (*Crx) 2 Mg/Ml Vial IV PUSH 2 mg Q2H PRN Administration CIWA > 15 Lorazepam 2 mg 07/02/24 17:53 07/03/24 04:54 Lorazepam Inj (*Crx) 2 Mg/Ml Vial IV PUSH 2 mg Q4H PRN Administration CIWA 8-15 Morphine Sulfate 2 mg 07/02/24 16:38 07/03/24 20:44 Morphine Sulfate (*Crx) 2 Mg/Ml Inj IV PUSH 2 mg Q4H PRN Administration Pain Rated 7-10 Ondansetron HCl 4 mg 07/02/24 10:07 07/03/24 13:55 Ondansetron Inj 4 Mg/2 Ml Vial IV PUSH 4 mg Q4H PRN Administration Nausea Phenol 1 spray 07/02/24 12:12 Phenol/Sod Pheno [place] Mendez (*Bkc) MUCOUS MEM PRN PRN Sore Throat Thiamine HCl 100 mg 07/03/24 09:00 07/04/24 08:41 Thiamine Hcl 200 Mg/2 Ml Vial IV PUSH 100 mg DAILY EMILE Administration Radiology Results: ITS Impressions Abdomen/Pelvis CT 07/02/24 08:21 Impression: Findings compatible high-grade small bowel obstruction, transition point as detailed above. Chest X-Ray 07/02/24 09:58 Impression: Clear lungs. NG tube in place. Abdomen X-Ray 07/04/24 06:17 Impression: NG tube in place with small bowel obstruction. Labs Labs: Laboratory Results - last 24 hr 07/03/24 07/03/24 07/04/24 18:24 23:47 04:42 WBC 9.7 RBC 4.68 Hgb 14.9 Hct 43.2 MCV 92.3 MCH 31.8 MCHC 34.5 RDW 12.8 Plt Count 226 MPV 10.1 Immature Gran % (Auto) 0.8 H Neut % (Auto) 76.1 H Lymph % (Auto) 9.3 L Rooks % (Auto) 13.1 H Eos % (Auto) 0.4 Baso % (Auto) 0.3 Lymph # (Auto) 0.90 Rooks # (Auto) 1.3 H Eos # (Auto) 0.0 Baso # (Auto) 0.0 Abs Immat Gran (auto) 0.08 H Absolute Neuts (auto) 7.4 H Absolute Nucleated RBC 0.000 Nucleated RBC % 0.0 APTT Sodium 141 Potassium 3.9 Chloride 109 H Carbon Dioxide 24 Anion Gap 8 BUN 26 H D Creatinine 0.80 Estim Creat Clear Calc 132 Estimated GFR > 60 Glucose 99 POC Capillary Glucose 100 121 H Calcium 9.2 Transferrin 07/04/24 07/04/24 11:46 14:13 WBC RBC Hgb Hct MCV MCH MCHC RDW Plt Count MPV Immature Gran % (Auto) Neut % (Auto) Lymph % (Auto) Rooks % (Auto) Eos % (Auto) Baso % (Auto) Lymph # (Auto) Rooks # (Auto) Eos # (Auto) Baso # (Auto) Abs Immat Gran (auto) Absolute Neuts (auto) Absolute Nucleated RBC Nucleated RBC % APTT 30.5 Sodium Potassium Chloride Carbon Dioxide Anion Gap BUN Creatinine Estim Creat Clear Calc Estimated GFR Glucose POC Capillary Glucose 89 Calcium Transferrin 186 L
[2024-07-04] MEDS: IBUPROFEN IV 800 MG/200 ML 800 MG/200 ML BAG 400 MG IVPB (17:30)
[2024-07-04 18:54] LABS: Glucose Point of Care 91 mg/dl (65-105)
[2024-07-04] MEDS: SODIUM CHLORIDE 0.9% IV 1,000 ML 125 ML IV CONT (23:47)
[2024-07-04 23:58] LABS: Glucose Point of Care 88 mg/dl (65-105)
[2024-07-05] VITALS (13 sets, daily range): BP systolic 149–167; BP diastolic 87–102; PULSE 9–101; RESP 16–20; TEMP 36.2–36.9; O2SAT 96–100; BMI 26.5
[2024-07-05 04:53] LABS: Anion Gap 5 mmol/L (4-12); Blood Urea Nitrogen 21 mg/dL (9-20); Calcium 8.9 mg/dL (8.4-10.2); Carbon Dioxide 27 mmol/L (22-30); Chloride 110 mmol/L (98-107); Estimated CRCL calculation 149 ml/min; Estimated Glomerular Filt Rate > 60; Glucose 82 mg/dL (65-110); Potassium 3.7 mmol/L (3.4-5.0); Sodium 142 mmol/L (137-145)
[2024-07-05] MEDS: SODIUM CHLORIDE 0.9% IV 1,000 ML 125 ML IV CONT ×2 (07:19→17:39)
[2024-07-05] MEDS: FOLIC ACID 1 MG/0.2 ML INJ IV PUSH (07:21)
[2024-07-05] MEDS: THIAMINE HCL 200 MG/2 ML VIAL 100 MG IV PUSH (07:21)
[2024-07-05 12:05] LABS: Glucose Point of Care 82 mg/dl (65-105)
[2024-07-05] MEDS: ONDANSETRON INJ 4 MG/2 ML VIAL IV PUSH ×2 (14:14→20:35)
--- NOTE | 2024-07-05 15:22 | P.PNIM_ITS ---
Progress Note: A&P Assessment and Plan (1) Sepsis: Code(s): A41.9 - Sepsis, unspecified organism Status: Acute Assessment and Plan: Patient presents with abdominal pain and met SIRS criteria on admission with t achycardic, tachypnea, leukocytosis. UCx negative. BCx NGTD. CXR clear. CT A/P showing no acute infectious process. Infectious etiology unlikely. SIRS possibly from dehydration, SBO and/or alcohol withdrawal. Abx stopped Continue to monitor closely off abx. 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 He has a hx of SBO since with 2 small bowel resections for adhesions but no episodes for about 6 yrs. He did have a left inguinal surgery repair about [address] abd/pelvis 07/02 shows marked distention of stomach and proximal small bowel loops, with transition point in the anterior mid abdomen just deep to the umbilicus. Findings are compatible with high-grade small bowel obstruction. Distal small bowel and large bowel are relatively decompressed. GenSurg consulted. NGT secured with persistently high output: 5050->2475->2000-> not documented yet today NPO. KUB today showing slightly dilated small bowel. Continue IV fluids. Walk in halls. (3) Acute kidney injury: Code(s): N17.9 - Acute kidney failure, unspecified Status: Acute Assessment and Plan: Cr 5.8 with BUN 38. No prior labs to compare but no hx of CKD. With IV fluids, BUN/Cr normalized. CT A/P showing normal appearing kidneys and bladder [place] T[place]ER related to dehydration Monitor renal function, electrolytes and UOP. Avoid nephrotoxins. (4) Alcohol withdrawal delirium: Code(s): F10.931 - Alcohol use, unspecified with withdrawal delirium Status: Acute Assessment and Plan: Patient with evidence of severe withdrawals on admission. CIWA protocol started. Patient became much improved. Restraints and sitter were discontinued. CIWA scose down to 0-2 range Educated about the benefits of abstaining from alcohol Family in the room mention patient was talking about fentanyl. Patient denies taking fentanyl prior to admission. No UDS was performed. Plan DVT prophylaxis - SCDs Code status - full Subjective Date/time seen: 07/05/24 15:22 Interval history: 39yo male with alcoholism, anxiety, depression and SBO from peritoneal adhesions here for abdominal pain. Assuming care. Chart reviewed. Patient slept poorly without clear wheezing. H e is passing flatus but no bowel movements. He has been up to the chair. His nausea is better but no vomiting. Exam Narrative: AF 98.5 167/87 90 20 98% ra Gen - NARD Chest - few bibasilar crackles, nml RR CV - RRR S1/S2 Abd - Soft, NT/ND, Positive BS Ext - No pedal edema. 2+ DP pulses Neuro - Alert and oriented. Nonfocal exam. Psych - Nml mood and affect Skin - Warm and dry Objective Data Vital Signs Vital Signs: Vital Signs - 24 hr 07/04/24 16:00 07/04/24 16:00 07/04/24 16:00 Temperature Pulse Rate 93 93 Pulse Rate [Monitor] 101 H Respiratory Rate 16 Blood Pressure 156/94 H Pulse Oximetry 100 Oxygen Delivery Room Air Fraction of Inspired Oxygen 21 07/04/24 18:00 07/04/24 16:00 07/04/24 20:38 Temperature 98.3 F 97.7 F Pulse Rate 103 H 105 H 96 Pulse Rate [Monitor] Respiratory Rate 20 20 Blood Pressure 141/94 H 148/96 H Pulse Oximetry 97 98 Oxygen Delivery Fraction of Inspired Oxygen 07/04/24 20:00 07/04/24 23:53 07/05/24 00:32 Temperature 97.8 F Pulse Rate 96 96 88 Pulse Rate [Monitor] Respiratory Rate 20 20 20 Blood Pressure 151/89 H Pulse Oximetry 98 98 97 Oxygen Delivery Room Air Room Air Fraction of Inspired Oxygen 21 21 07/04/24 20:00 07/04/24 22:00 07/05/24 00:00 Temperature Pulse Rate 105 H 76 94 Pulse Rate [Monitor] Respiratory Rate Blood Pressure Pulse Oximetry Oxygen Delivery Fraction of Inspired Oxygen 07/05/24 04:00 07/05/24 04:00 07/05/24 02:00 Temperature Pulse Rate 88 84 Pulse Rate [Monitor] 101 H Respiratory Rate 20 Blood Pressure 151/89 H Pulse Oximetry 97 Oxygen Delivery Room Air Fraction of Inspired Oxygen 21 07/05/24 04:00 07/05/24 06:07 07/05/24 06:00 Temperature 97.7 F Pulse Rate 86 89 90 Pulse Rate [Monitor] Respiratory Rate 20 Blood Pressure 155/95 H Pulse Oximetry 100 Oxygen Delivery Fraction of Inspired Oxygen 07/05/24 07:26 07/05/24 07:26 07/05/24 07:26 Temperature Pulse Rate 89 89 Pulse Rate [Monitor] 101 H Respiratory Rate 20 Blood Pressure 155/95 H Pulse Oximetry 100 Oxygen Delivery Room Air Fraction of Inspired Oxygen 07/05/24 07:29 07/05/24 07:29 07/05/24 07:29 Temperature Pulse Rate 90 89 Pulse Rate [Monitor] 9 L Respiratory Rate 20 Blood Pressure Pulse Oximetry 100 Oxygen Delivery Room Air Fraction of Inspired Oxygen 21 07/05/24 08:00 07/05/24 12:00 07/05/24 12:00 Temperature 98.2 F 98.5 F Pulse Rate 94 90 Pulse Rate [Monitor] 9 L Respiratory Rate 16 20 Blood Pressure 149/92 H 149/92 H 167/87 H Pulse Oximetry 96 98 Oxygen Delivery Fraction of Inspired Oxygen Intake/Output Intake/Output: Intake & Output 07/02/24 07/03/24 07/04/24 07/05/24 23:59 23:59 23:59 23:59 Intake Total 7059 4350 3100.0 941.7 Output Total 6150 3675 3200 500 Balance 909 675 -100.0 441.7 Meds/Results Medications: Active Medications Generic Name Dose Route Start Last Admin Trade Name Freq PRN Reason Stop Dose Admin Dextrose 12.5 gm 07/02/24 14:18 Dextrose 50% 25 Gm/50 Ml Syringe IV PUSH PRN PRN Hypoglycemia Protocol Folic Acid 1 mg 07/03/24 09:00 07/05/24 07:21 Folic Acid 1 Mg/0.2 Ml Inj IV PUSH 1 mg QAM EMILE Administration Glucagon 1 mg 07/02/24 14:18 Glucagon For Inj 1 Mg Vial IM PRN PRN Hypoglycemia Protocol Glucose 15 gm 07/02/24 14:18 Glucose Oral Gel 15 Gm Of Glucse In 37.5 Gm Tube PO PRN PRN Hypoglycemia Protocol Dextrose 1,000 mls @ 100 mls/hr 07/02/24 14:18 Dextrose 5% 1,000 Ml IVPB PRN PRN Hypoglycemia Protocol Sodium Chloride 1,000 mls @ 125 mls/hr 07/02/24 17:05 07/05/24 07:26 Normal Saline Iv IV CONT Not Given .Q8H [facility] Ibuprofen 800 mg in 200 mls @ 400 mls/hr 07/04/24 13:25 07/04/24 17:30 Caldolor 800 Mg/200 Ml IVPB 400 mls/hr Q6H PRN Administration Pain Rated 4-6 Insulin Aspart 2 - 5 units 07/02/24 18:00 07/05/24 14:14 Insulin Aspart (*Bkc) 100 Units/Ml SUB-Q Not Given Q6HR [facility] Protocol Morphine Sulfate 2 mg 07/02/24 16:38 07/03/24 20:44 Morphine Sulfate (*Crx) 2 Mg/Ml Inj IV PUSH 2 mg Q4H PRN Administration Pain Rated 7-10 Ondansetron HCl 4 mg 07/02/24 10:07 07/05/24 14:14 Ondansetron Inj 4 Mg/2 Ml Vial IV PUSH 4 mg Q4H PRN Administration Nausea Pantoprazole Sodium 40 mg 07/05/24 16:00 Pantoprazole Sodium Iv 40 Mg Vial IV PUSH QAM [facility] Phenol 1 spray 07/02/24 12:12 Phenol/Sod Pheno [place] Mendez (*Bkc) MUCOUS MEM PRN PRN Sore Throat Thiamine HCl 100 mg 07/03/24 09:00 07/05/24 07:21 Thiamine Hcl 200 Mg/2 Ml Vial IV PUSH 100 mg DAILY EMILE Administration Radiology Results: ITS Impressions Abdomen/Pelvis CT 07/02/24 08:21 Impression: Findings compatible high-grade small bowel obstruction, transition point as detailed above. Chest X-Ray 07/02/24 09:58 Impression: Clear lungs. NG tube in place. Abdomen X-Ray 07/05/24 08:19 IMPRESSION: Slightly dilated small bowel loops in the mid abdomen. Partial obstruction is possible. Follow-up advised. Labs Labs: Laboratory Results - last 24 hr 07/04/24 07/04/24 07/05/24 18:52 23:43 04:21 Sodium 142 Potassium 3.7 Chloride 110 H Carbon Dioxide 27 Anion Gap 5 BUN 21 H Creatinine 0.70 Estim Creat Clear Calc 149 Estimated GFR > 60 Glucose 82 POC Capillary Glucose 91 88 Calcium 8.9 07/05/24 12:02 Sodium Potassium Chloride Carbon Dioxide Anion Gap BUN Creatinine Estim Creat Clear Calc Estimated GFR Glucose POC Capillary Glucose 82 Calcium
[2024-07-05] MEDS: LORazepam INJ (*CRX) 2 MG/ML VIAL 1 MG IV PUSH (15:58)
[2024-07-05] MEDS: PANTOPRAZOLE SODIUM IV 40 MG VIAL IV PUSH (15:59)
--- NOTE | 2024-07-05 16:52 | P.PNGS_ITS ---
Progress Note: A&P Assessment and Plan (1) Obstruction of small intestine due to peritoneal adhesion: Code(s): K56.50 - Intestinal adhesions [bands], unspecified as to partial versus complete obstruction Status: Acute Assessment and Plan: Partial obstruction seems to persist. It is good that he has had a bowel movement, hopefully he will open up with the assistance of the water-soluble contrast. At this point, I feel we should continue nasogastric suction and NPO except meds were sips. If does not resolve, may need laparotomy and adhesiolysis. Subjective Subjective Date/Time Seen: 07/05/24 16:52 Patient reports: pain is less, bowel movement and afebrile Interval history: Patient still in process of water-soluble small bowel series. He is back in his room and after walking the halls, he came back and had a bowel movement. He is tired but is comfortable at this time. Review of Systems Review of Systems: All systems reviewed & are unremarkable except as noted in HPI and below (HPI) Exam Const: General: anxious and tired appearing GI: Inspection: non-distended, scar and no visible herniation GI Palp: Yes Firmness to palpation present (GI), Yes Guarding due to palpation present (GI) (Voluntary) and No Hernia present Objective Data Vital Signs Vital Signs: Vital Signs - 24 hr 07/04/24 18:00 07/04/24 20:38 07/04/24 20:00 Temperature 36.5 C Pulse Rate 103 H 96 96 Pulse Rate [Monitor] Respiratory Rate 20 20 Blood Pressure 148/96 H Pulse Oximetry 98 98 Oxygen Delivery Room Air Fraction of Inspired Oxygen 07/04/24 23:53 07/05/24 00:32 07/04/24 20:00 Temperature 36.6 C Pulse Rate 96 88 105 H Pulse Rate [Monitor] Respiratory Rate 20 20 Blood Pressure 151/89 H Pulse Oximetry 98 97 Oxygen Delivery Room Air Fraction of Inspired Oxygen 07/04/24 22:00 07/05/24 00:00 07/05/24 04:00 Temperature Pulse Rate 76 94 Pulse Rate [Monitor] 101 H Respiratory Rate Blood Pressure 151/89 H Pulse Oximetry Oxygen Delivery Fraction of Inspired Oxygen 07/05/24 04:00 07/05/24 02:00 07/05/24 04:00 Temperature Pulse Rate 88 84 86 Pulse Rate [Monitor] Respiratory Rate 20 Blood Pressure Pulse Oximetry 97 Oxygen Delivery Room Air Fraction of Inspired Oxygen 07/05/24 06:07 07/05/24 06:00 07/05/24 07:26 Temperature 36.5 C Pulse Rate 89 90 Pulse Rate [Monitor] 101 H Respiratory Rate 20 Blood Pressure 155/95 H 155/95 H Pulse Oximetry 100 Oxygen Delivery Fraction of Inspired Oxygen 07/05/24 07:26 07/05/24 07:26 07/05/24 07:29 Temperature Pulse Rate 89 89 90 Pulse Rate [Monitor] Respiratory Rate 20 Blood Pressure Pulse Oximetry 100 Oxygen Delivery Room Air Fraction of Inspired Oxygen 21 07/05/24 07:29 07/05/24 07:29 07/05/24 08:00 Temperature 36.8 C Pulse Rate 89 94 Pulse Rate [Monitor] 9 L Respiratory Rate 20 16 Blood Pressure 149/92 H Pulse Oximetry 100 96 Oxygen Delivery Room Air Fraction of Inspired Oxygen 21 07/05/24 12:00 07/05/24 12:00 Temperature 36.9 C Pulse Rate 90 Pulse Rate [Monitor] 9 L Respiratory Rate 20 Blood Pressure 149/92 H 167/87 H Pulse Oximetry 98 Oxygen Delivery Fraction of Inspired Oxygen Intake/Output Intake/Output: Intake & Output 07/02/24 07/03/24 07/04/24 07/05/24 23:59 23:59 23:59 23:59 Intake Total 7059 4350 3100.0 941.7 Output Total 6150 3675 3200 500 Balance 909 675 -100.0 441.7 Meds/Results Medications: Active Medications Generic Name Dose Route Start Last Admin Trade Name Freq PRN Reason Stop Dose Admin Dextrose 12.5 gm 07/02/24 14:18 Dextrose 50% 25 Gm/50 Ml Syringe IV PUSH PRN PRN Hypoglycemia Protocol Folic Acid 1 mg 07/03/24 09:00 07/05/24 07:21 Folic Acid 1 Mg/0.2 Ml Inj IV PUSH 1 mg QAM EMILE Administration Glucagon 1 mg 07/02/24 14:18 Glucagon For Inj 1 Mg Vial IM PRN PRN Hypoglycemia Protocol Glucose 15 gm 07/02/24 14:18 Glucose Oral Gel 15 Gm Of Glucse In 37.5 Gm Tube PO PRN PRN Hypoglycemia Protocol Dextrose 1,000 mls @ 100 mls/hr 07/02/24 14:18 Dextrose 5% 1,000 Ml IVPB PRN PRN Hypoglycemia Protocol Sodium Chloride 1,000 mls @ 125 mls/hr 07/02/24 17:05 07/05/24 07:26 Normal Saline Iv IV CONT Not Given .Q8H EMILE Ibuprofen 800 mg in 200 mls @ 400 mls/hr 07/04/24 13:25 07/04/24 17:30 Caldolor 800 Mg/200 Ml IVPB 400 mls/hr Q6H PRN Administration Pain Rated 4-6 Insulin Aspart 2 - 5 units 07/02/24 18:00 07/05/24 14:14 Insulin Aspart (*Bkc) 100 Units/Ml SUB-Q Not Given Q6HR [facility] [place] Protocol Lorazepam 1 mg 07/05/24 15:49 07/05/24 15:58 Lorazepam Inj (*Crx) 2 Mg/Ml Vial IV PUSH 1 mg Q6H PRN Administration Anxiety Morphine Sulfate 2 mg 07/02/24 16:38 07/03/24 20:44 Morphine Sulfate (*Crx) 2 Mg/Ml Inj IV PUSH 2 mg Q4H PRN Administration Pain Rated 7-10 Ondansetron HCl 4 mg 07/02/24 10:07 07/05/24 14:14 Ondansetron Inj 4 Mg/2 Ml Vial IV PUSH 4 mg Q4H PRN Administration Nausea Pantoprazole Sodium 40 mg 07/05/24 16:00 07/05/24 15:59 Pantoprazole Sodium Iv 40 Mg Vial IV PUSH 40 mg QAM EMILE Administration Phenol 1 spray 07/02/24 12:12 Phenol/Sod Pheno [place] Mendez (*Bkc) MUCOUS MEM PRN PRN Sore Throat Thiamine HCl 100 mg 07/03/24 09:00 07/05/24 07:21 Thiamine Hcl 200 Mg/2 Ml Vial IV PUSH 100 mg DAILY EMILE Administration Radiology Results: ITS Impressions Abdomen/Pelvis CT 07/02/24 08:21 Impression: Findings compatible high-grade small bowel obstruction, transition point as detailed above. Chest X-Ray 07/02/24 09:58 Impression: Clear lungs. NG tube in place. Abdomen X-Ray 07/05/24 08:19 IMPRESSION: Slightly dilated small bowel loops in the mid abdomen. Partial obstruction is possible. Follow-up advised. Labs Labs: Laboratory Results - last 24 hr 07/04/24 07/04/2424 18:52 23:43 04:21 Sodium 142 Potassium 3.7 Chloride 110 H Carbon Dioxide 27 Anion Gap 5 BUN 21 H Creatinine 0.70 Estim Creat Clear Calc 149 Estimated GFR > 60 Glucose 82 POC Capillary Glucose 91 88 Calcium 8.9 07/05/24 12:02 Sodium Potassium Chloride Carbon Dioxide Anion Gap BUN Creatinine Estim Creat Clear Calc Estimated GFR Glucose POC Capillary Glucose 82 Calcium Imaging Attestation: I personally reviewed and interpreted this imaging study as follows: (Water-soluble small bowel series) My impression: I have been following his small-bowel series. He has had a 2 hour post injection film which does not show contrast in the colon. He is due to get additional films done portable.
--- NOTE | 2024-07-05 17:12 | PC.NURSE ---
Patient transferred to room 329 via wheelchair at 1705 from IMU room 232
[2024-07-05 17:24] LABS: Glucose Point of Care 93 mg/dl (65-105)
[2024-07-05] MEDS: ENOXAPARIN 30 MG/0.3 ML SYRINGE SUB-Q (17:39)
[2024-07-05] MEDS: IBUPROFEN IV 800 MG/200 ML 800 MG/200 ML BAG 400 MG IVPB (18:10)
[2024-07-05] MEDS: diphenhydrAMINE HCl INJ 50 MG/ML VIAL 25 MG IV PUSH (23:00)
[2024-07-05 23:21] LABS: Glucose Point of Care 87 mg/dl (65-105)
[2024-07-05 23:29] LABS: Glucose Point of Care 88 mg/dl (65-105)
[2024-07-06] VITALS (17 sets, daily range): BP systolic 108–160; BP diastolic 76–106; PULSE 94–119; RESP 14–24; TEMP 36.3–37.3; O2SAT 93–100
[2024-07-06] MEDS: SODIUM CHLORIDE 0.9% IV 1,000 ML 125 ML IV CONT (01:27)
[2024-07-06] MEDS: IBUPROFEN IV 800 MG/200 ML 800 MG/200 ML BAG 400 MG IVPB (01:31)
[2024-07-06 05:18] LABS: Glucose Point of Care 70 mg/dl (65-105)
[2024-07-06] MEDS: ONDANSETRON INJ 4 MG/2 ML VIAL IV PUSH ×2 (05:20→10:10)
[2024-07-06 09:00] LABS: Anion Gap 4 mmol/L (4-12); Blood Urea Nitrogen 18 mg/dL (9-20); Carbon Dioxide 32 mmol/L (22-30); Chloride 113 mmol/L (98-107); Estimated CRCL calculation 149 ml/min; Estimated Glomerular Filt Rate > 60; Glucose 95 mg/dL (65-110); Potassium 3.7 mmol/L (3.4-5.0); Sodium 149 mmol/L (137-145)
[2024-07-06] MEDS: THIAMINE HCL 200 MG/2 ML VIAL 100 MG IV PUSH (10:24)
[2024-07-06] MEDS: PANTOPRAZOLE SODIUM IV 40 MG VIAL IV PUSH (10:26)
[2024-07-06 11:00] LABS: Lipase 7209 U/L (23-300)
[2024-07-06] MEDS: FLUTICASONE PROPIONATE 0.05% NA SPR 16 GM BTL (*BKC) 2 SPRAY NASAL (11:04)
[2024-07-06] MEDS: buPROPion HCL XL (24 HR) 150 MG TABCR 300 MG PO (11:05)
[2024-07-06] MEDS: MONTELUKAST SODIUM 10 MG TABLET PO (11:05)
[2024-07-06] MEDS: LORATADINE 10 MG TABLET PO (11:06)
[2024-07-06] MEDS: busPIRone HCL 10 MG TABLET 30 MG PO (11:06)
[2024-07-06] MEDS: ENOXAPARIN 40 MG/0.4 ML SYRINGE SUB-Q (11:07)
--- NOTE | 2024-07-06 12:13 | PM.PNGS ---
Progress Note: A&P Assessment and Plan (1) Obstruction of small intestine due to peritoneal adhesion: Code(s): K56.50 - Intestinal adhesions [bands], unspecified as to partial versus complete obstruction Status: Acute Assessment and Plan: Transit time on the small bowel follow through was delayed, taking 4 hours to reach the colon. Plain films this morning showed contrast in the colon and he has had a few bowel movements. I will leave the NG tube in place for now. Dr. Mccann will evaluate the patient later today and decide on either removing the NG tube and trying to allow a clear liquid diet versus discussing surgical exploration. Plan I have discussed the patient's case and plan of care with Dr. Mccann. Subjective Subjective Date/Time Seen: 07/06/24 12:13 Patient reports: bowel movement (X1 last night and another small loose bowel movement this morning) and afebrile Interval history: Patient had some left lower quadrant and periumbilical abdominal pain this morning. He reports this is as cramping pain. He has his NG tube clamped while they are giving him home medications. He denies any nausea. Exam Const: General: comfortable and no acute distress Orientation/consciousness: patient oriented x3 GI: Inspection: other ( Mildly distended) GI Palp: Yes Soft to palpation, Yes Tenderness to palpation present (GI) (LLQ & periumbilical) and No Guarding due to palpation present (GI) Auscultation: normal bowel sounds Objective Data Vital Signs Vital Signs: Vital Signs - 24 hr 07/05/24 16:00 07/05/24 19:58 07/05/24 22:42 Temperature 97.2 F L 97.7 F 97.7 F Pulse Rate 100 100 96 Respiratory Rate 18 18 20 Blood Pressure 159/95 H 151/102 H 152/102 H Pulse Oximetry 99 99 98 Oxygen Delivery 07/06/24 00:00 07/05/24 20:36 07/06/24 04:00 Temperature 97.7 F 97.7 F Pulse Rate 98 95 Respiratory Rate 20 18 Blood Pressure 157/96 H 108/76 Pulse Oximetry 99 99 Oxygen Delivery Room Air 07/06/24 08:00 07/06/24 09:12 Temperature 97.3 F L Pulse Rate 94 Respiratory Rate 14 Blood Pressure 160/101 H Pulse Oximetry 99 Oxygen Delivery Room Air Intake/Output Intake/Output: Intake & Output 07/03/24 07/04/24 07/05/24 07/06/24 23:59 23:59 23:59 23:59 Intake Total 4350 3300.0 2141.7 1475 Output Total 3675 3200 700 200 Balance 675 100.0 1441.7 1275 Meds/Results Medications: Active Medications Generic Name Dose Route Start Last Admin Trade Name Freq PRN Reason Stop Dose Admin Acetaminophen/Codeine Phosphate 1 tab 07/06/24 10:03 Acetaminophen/Codeine (*Crx) 300/30 Mg Tablet PO Q6H PRN Incisional pain Hydrocodone Bitart/Acetaminophen 1 tab 07/06/24 10:03 Hydrocodone/Acetaminophen (*Crx) 5-325 Mg Tablet PO Q4H PRN Pain from bowel obstruction Alprazolam 0.5 mg 07/06/24 10:03 Alprazolam (*Crx) 0.5 Mg Tablet PO BID PRN Anxiety Amitriptyline HCl 25 mg 07/06/24 21:00 Amitriptyline Hcl 25 Mg Tablet PO HS EMILE Bupropion HCl 300 mg 07/06/24 10:10 07/06/24 11:05 Bupropion Hcl Xl (24 Hr) 150 Mg Tabcr PO 300 mg DAILY EMILE Administration Buspirone HCl 5 mg 07/07/24 21:00 Buspirone Hcl 5 Mg Tablet BY MOUTH HS EMILE Buspirone HCl 30 mg 07/06/24 10:25 07/06/24 11:06 Buspirone Hcl 10 Mg Tablet PO 30 mg DAILY EMILE Administration Buspirone HCl 10 mg 07/06/24 21:00 Buspirone Hcl 10 Mg Tablet BY MOUTH HS EMILE Dextrose 12.5 gm 07/02/24 14:18 Dextrose 50% 25 Gm/50 Ml Syringe IV PUSH PRN PRN Hypoglycemia Protocol Docusate Sodium 100 mg 07/06/24 21:00 Docusate Sodium 100 Mg Capsule PO HS EMILE Enoxaparin Sodium 40 mg 07/06/24 09:00 07/06/24 11:07 Enoxaparin 40 Mg/0.4 Ml Syringe SUB-Q 40 mg DAILY EMILE Administration Fluticasone Propionate 2 spray 07/06/24 10:10 07/06/24 11:04 Fluticasone Propionate 0.05% Na Spr 16 Gm Btl (*Bkc) NASAL 2 spray DAILY EMILE Administration Folic Acid 1 mg 07/03/24 09:00 07/05/24 07:21 Folic Acid 1 Mg/0.2 Ml Inj IV PUSH 1 mg QAM EMILE Administration Glucagon 1 mg 07/02/24 14:18 Glucagon For Inj 1 Mg Vial IM PRN PRN Hypoglycemia Protocol Glucose 15 gm 07/02/24 14:18 Glucose Oral Gel 15 Gm Of Glucse In 37.5 Gm Tube PO PRN PRN Hypoglycemia Protocol Dextrose 1,000 mls @ 100 mls/hr 07/02/24 14:18 Dextrose 5% 1,000 Ml IVPB PRN PRN Hypoglycemia Protocol Sodium Chloride 1,000 mls @ 125 mls/hr 07/02/24 17:05 07/06/24 01:27 Normal Saline Iv IV CONT 125 mls/hr .Q8H EMILE Administration Ibuprofen 800 mg in 200 mls @ 400 mls/hr 07/04/24 13:25 07/06/24 02:01 Caldolor 800 Mg/200 Ml IVPB Infused Q6H PRN Infusion Pain Rated 4-6 Insulin Aspart 2 - 5 units 07/02/24 18:00 07/06/24 05:20 Insulin Aspart (*Bkc) 100 Units/Ml SUB-Q Not Given Q6HR [facility] Protocol Loratadine 10 mg 07/06/24 10:10 07/06/24 11:06 Loratadine 10 Mg Tablet PO 10 mg QAM EMILE Administration Lorazepam 1 mg 07/05/24 15:49 07/05/24 15:58 Lorazepam Inj (*Crx) 2 Mg/Ml Vial IV PUSH 1 mg Q6H PRN Administration Anxiety Miscellaneous Information 0 each 07/06/24 00:01 Desvenlafaxine 25 Mg Is Nonformulary - We Only Carry 50 Mg Strength - Can Patient Use From XX 08/05/24 00:00 CLARIFY EMILE Miscellaneous Information 0 each 07/06/24 00:01 Buspirone - Please Clarify Schedule XX 08/05/24 00:00 CLARIFY [facility] Montelukast Sodium 10 mg 07/06/24 10:10 07/06/24 11:05 Montelukast Sodium 10 Mg Tablet PO 10 mg DAILY EMILE Administration Morphine Sulfate 2 mg 07/02/24 16:38 07/03/24 20:44 Morphine Sulfate (*Crx) 2 Mg/Ml Inj IV PUSH 2 mg Q4H PRN Administration Pain Rated 7-10 * Home Med * 1 each 07/07/24 09:00 Desvenlafaxine PO 08/06/24 08:59 Succinate 25 Mg Tab DAILY EMILE Er Ondansetron HCl 4 mg 07/02/24 10:07 07/06/24 10:10 Ondansetron Inj 4 Mg/2 Ml Vial IV PUSH 4 mg Q4H PRN Administration Nausea Ondansetron HCl 8 mg 07/06/24 10:05 Ondansetron Hcl Odt 4 Mg Tablet PO Q8H PRN Nausea And Vomiting Pantoprazole Sodium 40 mg 07/05/24 16:00 07/06/24 10:26 Pantoprazole Sodium Iv 40 Mg Vial IV PUSH 40 mg QAM EMILE Administration Pantoprazole Sodium 40 mg 07/07/24 09:00 Pantoprazole 40 Mg Tablet PO QAM EMILE Phenol 1 spray 07/02/24 12:12 Phenol/Sod Pheno [place] (*Bkc) MUCOUS MEM PRN PRN Sore Throat Thiamine HCl 100 mg 07/03/24 09:00 07/06/24 10:24 Thiamine Hcl 200 Mg/2 Ml Vial IV PUSH 100 mg DAILY EMILE Administration Radiology Results: ITS Impressions Abdomen/Pelvis CT 07/02/24 08:21 Impression: Findings compatible high-grade small bowel obstruction, transition point as detailed above. Chest X-Ray 07/02/24 09:58 Impression: Clear lungs. NG tube in place. Small Bowel X-Ray 07/05/24 18:48 IMPRESSION: Delayed passage into the colon with reduction in caliber of the visualized small bowel, markedly distended on initial evaluation. Abdomen X-Ray 07/06/24 10:47 Impression: Probable small bowel obstruction with NG tube in place. There is oral contrast in large bowel. Labs Labs: Laboratory Results - last 24 hr 07/05/24 07/05/24 07/05/24 17:19 19:36 23:25 Sodium Potassium Chloride Carbon Dioxide Anion Gap BUN Creatinine Estim Creat Clear Calc Estimated GFR Glucose POC Capillary Glucose 93 87 88 Calcium Lipase 07/06/24 07/06/24 05:14 07:44 Sodium 149 H Potassium 3.7 Chloride 113 H Carbon Dioxide 32 H Anion Gap 4 BUN 18 Creatinine 0.70 Estim Creat Clear Calc 149 Estimated GFR > 60 Glucose 95 POC Capillary Glucose 70 Calcium 9.0 Lipase 7209 H
[2024-07-06 12:18] LABS: Glucose Point of Care 70 mg/dl (65-105)
[2024-07-06] MEDS: FOLIC ACID 1 MG/0.2 ML INJ IV PUSH (12:32)
[2024-07-06] MEDS: DEXTROSE 5%/0.45% SOD CHL 1,000 ML 100 ML IV CONT (13:20)
[2024-07-06] MEDS: LORazepam INJ (*CRX) 2 MG/ML VIAL 1 MG IV PUSH (16:25)
--- NOTE | 2024-07-06 17:34 | P.PNAN_ITS ---
Anes - Initial Pre Proc Eval Procedure: Operation Date: 07/06/24 17:30 Proposed Procedures p Exploratory Laparotomy For Bowel Perforation And Obstruction - Armand Mccann MD Date/Time: 07/06/24 17:34 Surgeon: David Hercules MD Pre Op Diagnosis: small bowel obstruction, TYLER Patient Data Age: 39 Gender: M Height: 1.91 m Weight: 95.1 kg Last Vital Signs Temp 37.3 C 07/06/24 16:00 Pulse 117 H 07/06/24 16:00 Resp 18 07/06/24 16:00 BP 148/106 H 07/06/24 16:00 Pulse Ox 99 07/06/24 16:00 O2 Del Method Room Air 07/06/24 09:12 FiO2 21 07/05/24 07:29 Allergies Allergy/AdvReac Type Severity Reaction Status Date / Time Penicillins Allergy Unknown Verified 07/06/24 17:32 Home Medications Medication Instructions Recorded Confirmed Type acetaminophen 300 mg-codeine 30 mg 1 tablet PO Q6H PRN Incisional pain 07/02/24 07/02/24 History tablet alprazolam 0.5 mg tablet 0.5 mg PO BID PRN Anxiety 07/02/24 07/02/24 History amitriptyline 25 mg tablet 25 mg PO HS 07/02/24 07/02/24 History bupropion HCl 300 mg 24 hr tablet, 300 mg PO DAILY 07/02/24 07/02/24 History extended release buspirone 15 mg tablet 45 mg DAILY 07/02/24 07/02/24 History cetirizine 10 mg tablet 10 mg PO DAILY 07/02/24 07/02/24 History desvenlafaxine succinate 25 mg 25 mg PO DAILY 07/02/24 07/02/24 History tablet,extended release 24 hr docusate sodium 100 mg capsule 100 mg PO HS 07/02/24 07/02/24 History (Colace) fluticasone propionate 50 2 spray intranasal DAILY 07/02/24 07/02/24 History mcg/actuation nasal spray,suspension hydrocodone 5 mg-acetaminophen 325 1 tablet PO Q4H PRN Pain from 07/02/24 07/02/24 History mg tablet bowel obstruction montelukast 10 mg tablet 10 mg PO DAILY 07/02/24 07/02/24 History omeprazole 40 mg capsule,delayed 40 mg PO DAILY 07/02/24 07/02/24 History release ondansetron HCl 8 mg tablet 8 mg PO Q8H PRN Nausea And Vomiting 07/02/24 07/02/24 History Laboratory Tests 07/05/24 07/05/24 07/06/24 19:36 23:25 05:14 Sodium Potassium Chloride Carbon Dioxide Anion Gap BUN Creatinine Estim Creat Clear Calc Estimated GFR Glucose POC Capillary Glucose 87 mg/dl 88 mg/dl 70 mg/dl (65-105) (65-105) (65-105) Calcium Lipase Blood Type Antibody Screen 07/06/24 07/06/24 07/06/24 07:44 12:13 16:26 Sodium 149 H mmol/L (137-145) Potassium 3.7 mmol/L (3.4-5.0) Chloride 113 H mmol/L (98-107) Carbon Dioxide 32 H mmol/L (22-30) Anion Gap 4 mmol/L (4-12) BUN 18 mg/dL (9-20) Creatinine 0.70 mg/dL (0.7-1.3) Estim Creat Clear Calc 149 ml/min Estimated GFR > 60 (59 - ) Glucose 95 mg/dL (65-110) POC Capillary Glucose 70 mg/dl (65-105) Calcium 9.0 mg/dL (8.4-10.2) Lipase 7209 H U/L (23-300) Blood Type O Positive Antibody Screen Negative Patient hx anesthesia problems: none Family hx anesthesia problems: none Results Review: All pre-operative results and documents have been reviewed as part of the pre- operative evaluation. [facility] Past Medical History Medical History Small bowel obstruction Surgical History Surgical History H/O lysis of adhesions H/O resection of small bowel Family History Family History Grandparent Acute myocardial infarction Cerebrovascular accident Congestive heart failure Hypertension Other Congestive heart failure Grandparent Acute myocardial infarction Congestive heart failure Diabetes mellitus Hypertension Breast cancer Grandparent Acute myocardial infarction Congestive heart failure Hypertension Father Congestive heart failure Hypertension Social History Social History Smoking status: Unknown if ever smoked Alcohol intake: current Drinks per week: 5 Substance use: never Do You Feel Safe in your Home?: Yes Lack of Transportation: No Lack of Food: Never True Current Housing: I Have Housing Concerned About Future Housing: No Difficulty Paying Gas/Electric Bills: No Difficulty Paying for Meds: No Currently Unemployed: No Education: Master's Degree or Higher Difficulty w/ Childcare or Family Care: No Spiritual care concerns: No Anes - Eval Final PreProcedure Day of Procedure 07/06/24 17:34 Patient weight: overweight Heart: tachycardia Lungs: clear to auscultation Airway: Mallampati scale class II Neurological: alert and oriented Last oral intake: 6 hours ASA classification: III Emergent: yes Anesthetic plan: proceed Anesthesia type and monitoring: general ETT and standard monitoring Results Review: All pre-operative results and documents have been reviewed as part of the pre- operative evaluation. Informed Consent: The patient's anesthetic plan and its attendant risks and benefits were discussed with the patient/family/POA. Questions were solicited and answers provided to the satisfaction of the patient/family/POA.
--- NOTE | 2024-07-06 17:45 | WPDHPUPDATE1 ---
History and Physical Update Update Date/Time: 07/06/24 17:45 History and Physical has been reviewed, including an updated exam of the patient. There are NO changes in the patient's condition. Risks, benefits, and alternatives have been discussed and questions answered. Patient agrees to proceed with procedure.
[2024-07-06] MEDS: LACTATED RINGERS 1,000 ML 30 ML IV CONT ×2 (17:51→20:37)
--- NOTE | 2024-07-06 17:52 | SUR.PREOP ---
6340- MD Alarcon notified- Pt had jello at 1400 and gatorade at 1530. Pt NG tube placement has not been verified via xray per Amrshall (floor RN). HR 119.
--- NOTE | 2024-07-06 17:55 | SUR.PREOP ---
1520- Consent and blood consent confirmed with patient. Obtained by Floor RN.
--- NOTE | 2024-07-06 18:19 | WPDPN ---
Progress Note: A&P Assessment and Plan (1) Sepsis: Code(s): A41.9 - Sepsis, unspecified organism Status: Acute Assessment and Plan: Patient presents with abdominal pain and met SIRS criteria on admission with tachycardic, tachypnea, leukocytosis. UCx negative. BCx NGTD. CXR clear. CT A/P showing no acute infectious process. Infectious etiology unlikely. SIRS possibly from dehydration, SBO and/or alcohol withdrawal. Abx stopped Continue to monitor closely off abx. 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 He has a hx of SBO since with 2 small bowel resections for adhesions but no episodes for about 6 yrs. He did have a left inguinal surgery repair about [address] abd/pelvis 07/02 shows marked distention of stomach and proximal small bowel loops, with transition point in the anterior mid abdomen just deep to the umbilicus. Findings are compatible with high-grade small bowel obstruction. Distal small bowel and large bowel are relatively decompressed. GenSurg consulted. NGT secured with persistently high output: 5050->2475->2000-> not documented yet today NPO. KUB today showing slightly dilated small bowel. Continue IV fluids. Walk in halls. Assuming care. Chart reviewed. Earlier when I saw patient he was doing fine had some gas however later Ct scan showed free intraperitoneal air patient is taken to OR for exploratory laparotomy for small bowel obstruction and perforation. will follow up and further recommendation to follow. (3) Acute kidney injury: Code(s): N17.9 - Acute kidney failure, unspecified Status: Acute Assessment and Plan: Cr 5.8 with BUN 38. No prior labs to compare but no hx of CKD. With IV fluids, BUN/Cr normalized. CT A/P showing normal appearing kidneys and bladder [place] related to dehydration Monitor renal function, electrolytes and UOP. Avoid nephrotoxins. (4) Alcohol withdrawal delirium: Code(s): F10.931 - Alcohol use, unspecified with withdrawal delirium Status: Acute Assessment and Plan: Patient with evidence of severe withdrawals on admission. CIWA protocol started. Patient became much improved. Restraints and sitter were discontinued. CIWA scose down to 0-2 range Educated about the benefits of abstaining from alcohol Family in the room mention patient was talking about fentanyl. Patient denies taking fentanyl prior to admission. No UDS was performed. Plan DVT prophylaxis - SCDs Code status - full Subjective Date/time seen: 07/06/24 18:19 Interval history: 39yo male with alcoholism, anxiety, depression and SBO from peritoneal adhesions here for abdominal pain. Assuming care. Chart reviewed. Earlier when I saw patient he was doing fine had some gas however later Ct scan showed free intraperitoneal air patient is taken to OR for exploratory laparotomy for small bowel obstruction and perforation. will follow up and further recommendation to follow. Review of Systems Review of Systems: All systems reviewed & are unremarkable except as noted in HPI and below Exam Narrative: Patient is comfortable, NAD HEENT: eyes are clear and none icteric, NG tube in place LUNGS:CTA HEART: RR S1S2 ABD: BS+ faint and diffusely tender Lower extremities: no edema SKIN: nonjaundiced Neuro: grossly intact. Objective Data Vital Signs Vital Signs: Vital Signs - 24 hr 07/05/24 19:58 07/05/24 22:42 07/06/24 00:00 Temperature 36.5 C 36.5 C 36.5 C Pulse Rate 100 96 98 Respiratory Rate 18 20 20 Blood Pressure 151/102 H 152/102 H 157/96 H Pulse Oximetry 99 98 99 Oxygen Delivery 07/05/24 20:36 07/06/24 04:00 07/06/24 08:00 Temperature 36.5 C 36.3 C L Pulse Rate 95 94 Respiratory Rate 18 14 Blood Pressure 108/76 160/101 H Pulse Oximetry 99 99 Oxygen Delivery Room Air 07/06/24 09:12 07/06/24 12:00 07/06/24 16:00 Temperature 36.9 C 37.3 C Pulse Rate 101 H 117 H Respiratory Rate 16 18 Blood Pressure 158/105 H 148/106 H Pulse Oximetry 98 99 Oxygen Delivery Room Air 07/06/24 17:34 Temperature 36.6 C Pulse Rate 119 H Respiratory Rate 18 Blood Pressure 144/92 H Pulse Oximetry 98 Oxygen Delivery Room Air Intake/Output Intake/Output: Intake & Output 07/03/24 07/04/24 07/05/24 07/06/24 23:59 23:59 23:59 23:59 Intake Total 4350 3300.0 2141.7 1475 Output Total 3675 3200 700 200 Balance 675 100.0 1441.7 1275 Meds/Results Medications: Active Medications Generic Name Dose Route Start Last Admin Trade Name Freq PRN Reason Stop Dose Admin Acetaminophen/Codeine Phosphate 1 tab 07/06/24 10:03 Acetaminophen/Codeine (*Crx) 300/30 Mg Tablet PO Q6H PRN Incisional pain Alprazolam 0.5 mg 07/06/24 10:03 Alprazolam (*Crx) 0.5 Mg Tablet PO BID PRN Anxiety Amitriptyline HCl 25 mg 07/06/24 21:00 Amitriptyline Hcl 25 Mg Tablet PO HS EMILE Bupropion HCl 300 mg 07/06/24 10:10 07/06/24 11:05 Bupropion Hcl Xl (24 Hr) 150 Mg Tabcr PO 300 mg DAILY EMILE Administration Buspirone HCl 5 mg 07/07/24 21:00 Buspirone Hcl 5 Mg Tablet BY MOUTH HS EMILE Buspirone HCl 30 mg 07/06/24 10:25 07/06/24 11:06 Buspirone Hcl 10 Mg Tablet PO 30 mg DAILY EMILE Administration Buspirone HCl 10 mg 07/06/24 21:00 Buspirone Hcl 10 Mg Tablet BY MOUTH HS EMILE Dextrose 12.5 gm 07/02/24 14:18 Dextrose 50% 25 Gm/50 Ml Syringe IV PUSH PRN PRN Hypoglycemia Protocol Enoxaparin Sodium 40 mg 07/06/24 09:00 07/06/24 11:07 Enoxaparin 40 Mg/0.4 Ml Syringe SUB-Q 40 mg DAILY EMILE Administration Fluticasone Propionate 2 spray 07/06/24 10:10 07/06/24 11:04 Fluticasone Propionate 0.05% Na Spr 16 Gm Btl (*Bkc) NASAL 2 spray DAILY EMILE Administration Folic Acid 1 mg 07/03/24 09:00 07/06/24 12:32 Folic Acid 1 Mg/0.2 Ml Inj IV PUSH 1 mg QAM EMILE Administration Glucagon 1 mg 07/02/24 14:18 Glucagon For Inj 1 Mg Vial IM PRN PRN Hypoglycemia Protocol Glucose 15 gm 07/02/24 14:18 Glucose Oral Gel 15 Gm Of Glucse In 37.5 Gm Tube PO PRN PRN Hypoglycemia Protocol Hydromorphone HCl 0.5 mg 07/06/24 17:33 Hydromorphone Hcl Inj (*Crx) 1 Mg/Ml Syr IV PUSH Q5M PRN Pain Dextrose 1,000 mls @ 100 mls/hr 07/02/24 14:18 Dextrose 5% 1,000 Ml IVPB PRN PRN Hypoglycemia Protocol Ibuprofen 800 mg in 200 mls @ 400 mls/hr 07/04/24 13:25 07/06/24 02:01 Caldolor 800 Mg/200 Ml IVPB Infused Q6H PRN Infusion Pain Rated 4-6 Potassium Chloride/Sodium Chloride 1,000 mls @ 125 mls/hr 07/06/24 16:05 Kcl 40 Meq/Ns IV CONT .Q8H EMILE Lactated Ringer's 1,000 mls @ 30 mls/hr 07/06/24 17:35 07/06/24 17:51 Lr - Lactated Ringers Iv IV CONT 30 mls/hr .Q24H EMILE Administration Lactated Ringer's 1,000 mls @ 30 mls/hr 07/06/24 17:35 Lr - Lactated Ringers Iv IV CONT .Q24H EMILE Insulin Aspart 2 - 5 units 07/02/24 18:00 07/06/24 13:10 Insulin Aspart (*Bkc) 100 Units/Ml SUB-Q Not Given Q6HR [facility] Protocol Lorazepam 1 mg 07/05/24 15:49 07/06/24 16:25 Lorazepam Inj (*Crx) 2 Mg/Ml Vial IV PUSH 1 mg Q6H PRN Administration Anxiety Miscellaneous Information 0 each 07/06/24 00:01 Desvenlafaxine 25 Mg Is Nonformulary - We Only Carry 50 Mg Strength - Can Patient Use From XX 08/05/24 00:00 CLARIFY EMILE Montelukast Sodium 10 mg 07/06/24 10:10 07/06/24 11:05 Montelukast Sodium 10 Mg Tablet PO 10 mg DAILY EMILE Administration Morphine Sulfate 2 mg 07/02/24 16:38 07/03/24 20:44 Morphine Sulfate (*Crx) 2 Mg/Ml Inj IV PUSH 2 mg Q4H PRN Administration Pain Rated 7-10 * Home Med * 1 each 07/07/24 09:00 Desvenlafaxine PO 08/06/24 08:59 Succinate 25 Mg Tab DAILY EMILE Er Ondansetron HCl 4 mg 07/02/24 10:07 07/06/24 10:10 Ondansetron Inj 4 Mg/2 Ml Vial IV PUSH 4 mg Q4H PRN Administration Nausea Ondansetron HCl 4 mg 07/06/24 17:33 Ondansetron Inj 4 Mg/2 Ml Vial IV PUSH ONCE PRN Nausea Pantoprazole Sodium 40 mg 07/05/24 16:00 07/06/24 10:26 Pantoprazole Sodium Iv 40 Mg Vial IV PUSH 40 mg QAM EMILE Administration Phenol 1 spray 07/02/24 12:12 Phenol/Sod Pheno [place] Mendez (*Bkc) MUCOUS MEM PRN PRN Sore Throat Thiamine HCl 100 mg 07/03/24 09:00 07/06/24 10:24 Thiamine Hcl 200 Mg/2 Ml Vial IV PUSH 100 mg DAILY EMILE Administration Radiology Results: ITS Impressions Chest X-Ray 07/02/24 09:58 Impression: Clear lungs. NG tube in place. Small Bowel X-Ray 07/05/24 18:48 IMPRESSION: Delayed passage into the colon with reduction in caliber of the visualized small bowel, markedly distended on initial evaluation. Abdomen X-Ray 07/06/24 10:47 Impression: Probable small bowel obstruction with NG tube in place. There is oral contrast in large bowel. Abdomen/Pelvis CT 07/06/24 15:14 IMPRESSION: 1. Free intraperitoneal gas and small volume of ascites, consistent with bowel perforation. I called this result to Meg Francisco. 2. Small bowel obstruction. 3. Normal pancreas. Labs Labs: Laboratory Results - last 24 hr 07/05/24 07/05/24 07/06/24 19:36 23:25 05:14 Sodium Potassium Chloride Carbon Dioxide Anion Gap BUN Creatinine Estim Creat Clear Calc Estimated GFR Glucose POC Capillary Glucose 87 88 70 Calcium Lipase Blood Type Antibody Screen 07/06/24 07/06/24 07/06/24 07:44 12:13 16:26 Sodium 149 H Potassium 3.7 Chloride 113 H Carbon Dioxide 32 H Anion Gap 4 BUN 18 Creatinine 0.70 Estim Creat Clear Calc 149 Estimated GFR > 60 Glucose 95 POC Capillary Glucose 70 Calcium 9.0 Lipase 7209 H Blood Type O Positive Antibody Screen Negative Quality VTE Prophylaxis VTE prophylaxis: mechanical ordered
--- NOTE | 2024-07-06 20:43 | P.OP_ITS ---
Procedure Note - Detailed Date of Procedure 07/06/24 Pre-op Diagnosis Small-bowel obstruction with bowel perforation Post-op Diagnosis Same Procedure Performed Adhesiolysis, small-bowel resection with anastomosis x2 Surgeon Armand Mccann MD Gallery Director Kota Riggins, [facility] Anesthesia General Indications Patient has had several previous laparotomies and bowel resections. His a history of several previous small-bowel obstructions. His previous surgeries and care were done in [place]. He presented with the severe small-bowel obstruction and dehydration with TYLER. Nasogastric tube and fluid resuscitation as well as analgesics were administered. He improved significantly and had a water-soluble small bowel follow-through yesterday. This showed the contrast went through to the colon but it was very prolonged. Patient had had 2 or 3 bowel movements and was wanting to at least try clear liquids. He started clear liquids and it was noted he had a serum lipase of over 7000. Stat CT scan was performed. It showed that there was a bowel perforation. He is taken to surgery now emergently for bowel perforation in the setting of small-bowel obstruction. Findings As predicted on the CT scan, the point of obstruction and transition point was in the mid abdomen just cephalad to the umbilicus. He had many extensive adhesions but most of these were not dense or particularly difficult. The area of the obstruction and the perforation involved 2 loops of bowel. Both had perforated. These were in the mid to distal jejunum. These 2 areas of bowel injury and perforation were fairly far apart and 2 resections were performed. The adhesions to the anterior abdominal wall were very dense and 1 small enterotomy occurred as a consequence of the severe nature of the adhesions. No other significant abdominal findings were noted. Description of Procedure Patient was taken to surgery and induced into general anesthesia. Sin catheter was placed. The abdomen is prepped and draped. The previous midline scar was wide and was excised completely. It was discarded. We then carefully began our dissection through the subcutaneous and down to the abdominal wall fascia. We tried enter the peritoneum in the upper most aspect of the incision but this was difficult. We continued trying to enter the peritoneum more caudad and eventually did get into the general peritoneal cavity. Once in the peritoneal cavity it was not difficult to open the rest of the fascia and peritoneum the length of the wound. There was greenish light enteric content in the abdomen. There was also quite a bit of fibrin is exudate due to inflammation on the surface of several loops of bowel. Many adhesions were encountered. Those closest to the anterior abdominal wall were particularly de nse. Although trying to particularly avoid an enterotomy with slow and meticulous dissection, unfortunately a small 3 mm opening was made in the proximal jejunum. This was closed in 2 layers with the inner layer of inverting interrupted 4-0 chromic. An outer layer of seromuscular Lembert sutures of 3-0 silk were placed. We then continued our dissection and found the loops of bowel that were stuck together and stuck to the anterior abdominal wall. The enterotomy appeared to of started in the more distal loop but included the more cephalad or proximal loop as well. These were taken down and closed with 3-0 silk suture to avoid further contamination while additional dissection and adhesiolysis were performed. From here we then set about a very lengthy hour and a half procedure of adhesiolysis. We freed up the entire small intestine from the ligament of Treitz to the ileocecal valve. There were many interloop adhesions. Fortunately the most dense adhesions were to the anterior abdominal wall and these adhesions while extensive were not precarious. Eventually we had the entire small bowel freed. We ran the small bowel looking for any other injuries and removed any fibrin is exudate that we could easily removed. We then irrigated the entire abdomen 1st with dilute peroxide saline mixture then with warm saline. About 3 L of irrigation were used in total. The position of the nasogastric tube was checked and was in good position in the stomach. Small bowel content was then milked retrograde through the dilated fluid-filled proximal bowel. It was milked into the stomach and then evacuated via the nasogastric tube. This left the proximal small bowel still dilated id but not nearly as distended or fluid filled. We then again ran the entire small intestine looking for any areas of occult injury that may lead to further problems. None were found other than the 2 areas that were involved in the perforation. The more proximal area of jejunum was attended 1st. The mesentery was divided next to the area of jejunum just distal where our line of resection was to be. We then used a TLC 75 stapler and divided the bowel here. The LigaSure was then used to divide the mesenteric vessels proximal, including and beyond the area of the perforation. The mesentery was again divided near the bowel and the proximal line of resection was created with the TLC 75 stapler. We passed this specimen off as jejunal perforation. We then used a [id number] but functional end-to-end stapled anastomosis. The TLC 75 stapler was used. The entero enterotomy was closed with the Tx be double stapler. We oversewed the entire entero enterotomy with 3-0 silk suture. I buttressed the crotch of the anastomosis and also reinforced the anterior staple line with 3-0 silk. M esenteric defect was closed with 3-0 silk as well. This looked good. We then went to the other area which was actually the larger perforation. In similar fashion we divided the proximal and distal end of the bowel using the TLC 75 stapler. The intervening mesentery was divided using LigaSure with really no bleeding. The 2 stapled ends of bowel were then anastomosed in an end-to-end but [id number] anastomosis using the TLC 75 stapler. The TXB 60 mm linear stapler was then used to close the enteroenterostomy. I oversewed the enteroenterostomy with interrupted 3-0 silk suture. The crotch of the anastomosis was reinforced with a 3-0 silk. Mesenteric defect was closed with interrupted 3-0 silk suture. We then placed the abdominal contents back in their anatomic position with gentle S shaped curves for the bowel. The mesentery was then positioned anteriorly over the viscera. The midline fascia was closed with 4-1 suture technique in bidirectional fashion tying just below the umbilicus. Due to the previous scarring, the skin was very adherent to the underlying subcutaneous with very little subcutaneous available. I used the cautery to slightly undermine the skin so that it would close without as much tension. Care was taken not to injure any of the suture during this process. I then loosely approximated the skin with subcuticular interrupted 3-0 Vicryl suture. The skin was then closed with wide sandor. The wound was dressed with Xeroform gauze, fluffs, ABDs, and Medipore tape. Patient was awakened and taken to recovery in good condition. Estimated blood loss was 50 cc. Sponge and needle counts were correct x2. Estimated Blood Loss -50 Urine Output 500 Drains Yes (Nasogastric tube, Sin catheter) Packing No Pathology Yes (Two jejunal resections both with perforations, these were separate specimen) Complications None Condition Stable Disposition [facility] Billing Surgery - Charge Forward: Surgery Billing (Extensive adhesiolysis, small-bowel resection with anastomosis x2)
[2024-07-06] MEDS: HYDROmorphone HCL INJ (*CRX) 1 MG/ML SYR 0.5 MG IV PUSH ×2 (21:24→21:29)
[2024-07-06 22:22] LABS: Glucose Point of Care 171 mg/dl (65-105)
[2024-07-06] MEDS: MORPHINE SULFATE PCA (*CRX) 30 MG/30 ML SYR IV CONT (22:55)
[2024-07-06] MEDS: metroNIDAZOLE 500 MG/ISO 100ML 500 MG/100 ML BAG 100 MG IVPB (23:22)
--- NOTE | 2024-07-06 23:46 | PC.NURSE ---
Pt arrived back in room from OR via stretcher with NG tube in place @2205.
[2024-07-07] VITALS (12 sets, daily range): BP systolic 120–146; BP diastolic 71–97; PULSE 80–107; RESP 12–20; TEMP 36.4–36.9; O2SAT 95–100
[2024-07-07] MEDS: IBUPROFEN IV 800 MG/200 ML 800 MG/200 ML BAG 400 MG IVPB ×5 (01:00→22:57)
[2024-07-07 01:13] LABS: Glucose Point of Care 138 mg/dl (65-105)
[2024-07-07] MEDS: levoFLOXacin 750 MG/D5W 150 ML 750 MG/150 ML BAG 100 MG IVPB (02:19)
[2024-07-07] MEDS: KCL 40 MEQ/0.9% SOD CHL 1,000 ML 125 ML IV CONT (04:16)
[2024-07-07 06:34] LABS: Basophils Absolute Auto 0.1 K/mm3 (0.0-0.1); Basophils Percent Auto 0.9 % (0.2-1.2); Eosinophils Absolute Auto 0.1 K/mm3 (0-0.3); Eosinophils Percent Auto 0.7 % (0-4.4); Hematocrit 44.4 % (42.0-52.0); Hemoglobin 14.5 g/dL (14.0-18.0); Immature Granulocyte Absolute 0.18 K/mm3 (0.00-0.031); Immature Granulocyte Percent A 2.4 % (0-0.5); Lymphocytes Absolute Auto 0.69 K/mm3 (0.9-3.2); Lymphocytes Percent Auto 9.3 % (18.3-44.2); Mean Corpuscular HGB Conc 32.7 g/dl (32-36); Mean Corpuscular Volume 94.9 fl (80-100); Mean Platelet Volume 10.3 fl (7.4-10.4); Monocytes Absolute Auto 0.9 K/mm3 (0.1-0.6); Monocytes Percent Auto 12.2 % (2.6-8.5); Neutrophils Absolute Auto 5.5 K/mm3 (1.3-6.7); Neutrophils Percent Auto 74.5 % (45.5-73.1); Platelet Count Result 278 k/mm3 (150-375); Red Blood Count 4.68 M/mm3 (4.6-6.20); Red Cell Distribution Width 12.8 % (11.5-14.5); White Blood Count 7.4 K/mm3 (4.5-10.0)
[2024-07-07] MEDS: PHENOL/SOD PHENO SPRAY CHERRY (*BKC) 1 SPRAY MUCOUS MEM (06:41)
[2024-07-07 06:56] LABS: Alanine Aminotransferase 16 U/L (6-50); Albumin Level 3.1 g/dL (3.5-5.1); Alkaline Phosphatase 52 U/L (38-126); Anion Gap 5 mmol/L (4-12); Aspartate Amino Transferase 32 U/L (17-59); Bilirubin,Total 0.7 mg/dL (0.2-1.3); Blood Urea Nitrogen 14 mg/dL (9-20); Calcium 8.5 mg/dL (8.4-10.2); Carbon Dioxide 31 mmol/L (22-30); Chloride 107 mmol/L (98-107); Estimated CRCL calculation 132 ml/min; Estimated Glomerular Filt Rate > 60; Glucose 110 mg/dL (65-110); Potassium 3.9 mmol/L (3.4-5.0); Sodium 143 mmol/L (137-145)
[2024-07-07 07:00] LABS: Lipase 2205 U/L (23-300)
[2024-07-07 07:05] LABS: Glucose Point of Care 106 mg/dl (65-105)
[2024-07-07 07:06] LABS: CRP 24.9 mg/dL (<1.0)
[2024-07-07] MEDS: MORPHINE SULFATE PCA (*CRX) 30 MG/30 ML SYR IV CONT ×2 (07:18→15:01)
--- NOTE | 2024-07-07 07:57 | PC.NURSE ---
Shift total from MOTOR SETTER was 27.7 mg. Shift total cleared and new vial of morphine entered to MOTOR SETTER machine with following settings: continuous rate of 1 mg/hr with bolus rate of 2 mg Q10 min, max dose of 24 mg (this is the highest parameter the MOTOR SETTER machine allows, order given for 30 mg).
[2024-07-07] MEDS: ENOXAPARIN 40 MG/0.4 ML SYRINGE SUB-Q (07:58)
[2024-07-07] MEDS: metroNIDAZOLE 500 MG/ISO 100ML 500 MG/100 ML BAG 100 MG IVPB ×3 (07:58→20:35)
[2024-07-07] MEDS: THIAMINE HCL 200 MG/2 ML VIAL 100 MG IV PUSH (07:58)
[2024-07-07] MEDS: PANTOPRAZOLE SODIUM IV 40 MG VIAL IV PUSH (07:58)
[2024-07-07] MEDS: FOLIC ACID 1 MG/0.2 ML INJ IV PUSH (09:04)
--- NOTE | 2024-07-07 10:16 | PM.PNGS ---
Progress Note: A&P Assessment and Plan (1) Obstruction of small intestine due to peritoneal adhesion: Code(s): K56.50 - Intestinal adhesions [bands], unspecified as to partial versus complete obstruction Status: Acute Assessment and Plan: for patient looking good postop day 1. Status post small bowel resection x2 and extensive adhesiolysis. Having minimal pain on LPN CMA. Will get him up to a chair today. Anticipate several more days of bowel rest so will have PICC line placed and start TPN with Clinimix and lipids. Will leave Sin catheter until tomorrow. Recheck labs and exam again tomorrow but doing very well at this time. (2) Small bowel perforation: Code(s): K63.1 - Perforation of intestine (nontraumatic) Status: Acute Subjective Subjective Date/Time Seen: 07/07/24 10:16 Post Op day: 1 Patient reports: no new complaints, pain is less, no flatus, no bowel movement and afebrile Exam Const: General: comfortable and no acute distress Orientation/consciousness: patient oriented x3 GI: Inspection: distended and incision ( dressing dry and intact) GI Palp: Yes Soft to palpation, Yes Tenderness to palpation present (GI), No Guarding due to palpation present (GI) and No Rebound tenderness present Auscultation: absent bowel sounds Neuro: General: patient oriented x3 and no focal motor deficits Extrem: General: no calf tenderness and no edema Psych: Affect: normal affect Insight: Good insight present (Psych) Judgement: Good judgement present (Psych) Objective Data Vital Signs Vital Signs: Vital Signs - 24 hr 07/06/24 12:00 07/06/24 16:00 07/06/24 17:34 Temperature 36.9 C 37.3 C 36.6 C Pulse Rate 101 H 117 H 119 H Respiratory Rate 16 18 18 Blood Pressure 158/105 H 148/106 H 144/92 H Pulse Oximetry 98 99 98 Oxygen Delivery Room Air Oxygen Flow Rate 07/06/24 20:37 07/06/24 20:50 07/06/24 21:05 Temperature 37.3 C Pulse Rate 108 H 110 H 110 H Respiratory Rate 24 H 20 16 Blood Pressure 138/95 H 147/90 H 147/88 H Pulse Oximetry 94 93 94 Oxygen Delivery Simple Face Mask Room Air Room Air Oxygen Flow Rate 8 07/06/24 21:20 07/06/24 21:35 07/06/24 21:50 Temperature Pulse Rate 114 H 108 H 104 H Respiratory Rate 16 20 20 Blood Pressure 147/96 H 131/87 144/83 H Pulse Oximetry 100 94 94 Oxygen Delivery Room Air Room Air Room Air Oxygen Flow Rate 07/06/24 22:15 07/06/24 22:30 07/06/24 22:55 Temperature 36.9 C 37.2 C Pulse Rate 108 H 104 H Respiratory Rate 16 16 16 Blood Pressure 151/103 H 132/96 H Pulse Oximetry 96 96 93 Oxygen Delivery Oxygen Flow Rate 07/06/24 23:00 07/06/24 23:55 07/07/24 00:00 Temperature 36.7 C 36.9 C Pulse Rate 107 H 107 H Respiratory Rate 16 18 18 Blood Pressure 158/89 H 146/97 H Pulse Oximetry 93 97 97 Oxygen Delivery Oxygen Flow Rate 07/07/24 00:55 07/07/24 01:55 07/07/24 02:55 Temperature Pulse Rate Respiratory Rate 20 18 18 Blood Pressure Pulse Oximetry 97 95 95 Oxygen Delivery Oxygen Flow Rate 07/06/24 22:30 07/07/24 03:47 07/07/24 03:55 Temperature 36.6 C Pulse Rate 102 H Respiratory Rate 16 16 Blood Pressure 143/92 H Pulse Oximetry 98 98 Oxygen Delivery Room Air Oxygen Flow Rate 07/07/24 07:18 07/07/24 07:18 07/07/24 08:00 Temperature Pulse Rate 101 H Respiratory Rate 16 16 12 Blood Pressure 130/83 Pulse Oximetry 98 Oxygen Delivery Oxygen Flow Rate Intake/Output Intake/Output: Intake & Output 07/04/24 07/05/24 07/06/24 07/07/24 23:59 23:59 23:59 23:59 Intake Total 3300.0 2141.7 1775 880 Output Total 3200 700 760 900 Balance 100.0 1441.7 1015 -20 Meds/Results Medications: Active Medications Generic Name Dose Route Start Last Admin Trade Name Freq PRN Reason Stop Dose Admin Amitriptyline HCl 25 mg 07/06/24 21:00 07/06/24 22:36 Amitriptyline Hcl 25 Mg Tablet PO Not Given HS EMILE Bupropion HCl 300 mg 07/06/24 10:10 07/07/24 07:58 Bupropion Hcl Xl (24 Hr) 150 Mg Tabcr PO Not Given DAILY EMILE Buspirone HCl 5 mg 07/07/24 21:00 Buspirone Hcl 5 Mg Tablet BY MOUTH HS EMILE Buspirone HCl 30 mg 07/06/24 10:25 07/07/24 07:59 Buspirone Hcl 10 Mg Tablet PO Not Given DAILY EMILE Buspirone HCl 10 mg 07/06/24 21:00 07/06/24 22:36 Buspirone Hcl 10 Mg Tablet BY MOUTH Not Given HS EMILE Dextrose 12.5 gm 07/02/24 14:18 Dextrose 50% 25 Gm/50 Ml Syringe IV PUSH PRN PRN Hypoglycemia Protocol Enoxaparin Sodium 40 mg 07/06/24 09:00 07/07/24 07:58 Enoxaparin 40 Mg/0.4 Ml Syringe SUB-Q 40 mg DAILY EMILE Administration Fluticasone Propionate 2 spray 07/06/24 10:10 07/07/24 07:59 Fluticasone Propionate 0.05% Na Spr 16 Gm Btl (*Bkc) NASAL Not Given DAILY EMILE Folic Acid 1 mg 07/03/24 09:00 07/07/24 09:04 Folic Acid 1 Mg/0.2 Ml Inj IV PUSH 1 mg QAM EMILE Administration Glucagon 1 mg 07/02/24 14:18 Glucagon For Inj 1 Mg Vial IM PRN PRN Hypoglycemia Protocol Dextrose 1,000 mls @ 100 mls/hr 07/02/24 14:18 Dextrose 5% 1,000 Ml IVPB PRN PRN Hypoglycemia Protocol Ibuprofen 800 mg in 200 mls @ 400 mls/hr 07/07/24 00:00 07/07/24 07:01 Caldolor 800 Mg/200 Ml IVPB Infused Q6H EMILE Infusion Metronidazole 500 mg in 100 mls @ 100 mls/hr 07/06/24 22:00 07/07/24 07:58 Flagyl 500 Mg/Iso Soln 100 Ml IVPB 100 mls/hr Q8H EMILE Administration Morphine Sulfate 30 mg in 30 mls @ 1 mls/hr 07/06/24 21:57 07/07/24 07:18 Morphine Sulfate Upholsterer Outside IV CONT 1 mg/hr PRN PRN 1 mls/hr LPN CMA Management Administration Protocol 1 MG/HR Levofloxacin/Dextrose 750 mg in 150 mls @ 100 mls/hr 07/08/24 02:00 Levaquin 750 Mg/D5w 150 Ml IVPB Q24H [facility] Insulin Aspart 2 - 5 units 07/02/24 18:00 07/07/24 06:32 Insulin Aspart (*Bkc) 100 Units/Ml SUB-Q Not Given Q6HR [facility] Protocol Lorazepam 1 mg 07/05/24 15:49 07/06/24 16:25 Lorazepam Inj (*Crx) 2 Mg/Ml Vial IV PUSH 1 mg Q6H PRN Administration Anxiety Naloxone HCl 0.1 mg 07/07/24 09:20 Naloxone Hcl 0.4 Mg/Ml Vial IV PUSH Q5MIN PRN Opioid Reversal Non Formulary 1 each 07/07/24 09:00 07/07/24 09:04 Desvenlafaxine PO 08/06/24 08:59 Not Given Succinate 25 Mg Tab DAILY [facility] Er Pantoprazole Sodium 40 mg 07/05/24 16:00 07/07/24 07:58 Pantoprazole Sodium Iv 40 Mg Vial IV PUSH 40 mg QAM EMILE Administration Phenol 1 spray 07/02/24 12:12 07/07/24 06:41 Phenol/Sod Pheno [place] (*Bkc) MUCOUS MEM 1 spray PRN PRN Administration Sore Throat Prochlorperazine Edisylate 10 mg 07/06/24 21:57 Prochlorperazine Edisylate 10 Mg/2 Ml Vial IV PUSH Q6H PRN Nausea And Vomiting Thiamine HCl 100 mg 07/03/24 09:00 07/07/24 07:58 Thiamine Hcl 200 Mg/2 Ml Vial IV PUSH 100 mg DAILY EMILE Administration Radiology Results: ITS Impressions Chest X-Ray 07/02/24 09:58 Impression: Clear lungs. NG tube in place. Small Bowel X-Ray 07/05/24 18:48 IMPRESSION: Delayed passage into the colon with reduction in caliber of the visualized small bowel, markedly distended on initial evaluation. Abdomen X-Ray 07/06/24 10:47 Impression: Probable small bowel obstruction with NG tube in place. There is oral contrast in large bowel. Abdomen/Pelvis CT 07/06/24 15:14 IMPRESSION: 1. Free intraperitoneal gas and small volume of ascites, consistent with bowel perforation. I called this result to Meg Francisco. 2. Small bowel obstruction. 3. Normal pancreas. Labs Labs: Laboratory Results - last 24 hr 07/06/24 07/06/24 07/06/24 07:44 12:13 16:26 WBC RBC Hgb Hct MCV MCH MCHC RDW Plt Count MPV Immature Gran % (Auto) Neut % (Auto) Lymph % (Auto) [place] % (Auto) Eos % (Auto) Baso % (Auto) Lymph # (Auto) [place] # (Auto) Eos # (Auto) Baso # (Auto) Abs Immat Gran (auto) Absolute Neuts (auto) Absolute Nucleated RBC Nucleated RBC % Sodium Potassium Chloride Carbon Dioxide Anion Gap BUN Creatinine Estim Creat Clear Calc Estimated GFR Glucose POC Capillary Glucose 70 Calcium Total Bilirubin AST ALT Alkaline Phosphatase C-Reactive Protein Total Protein Albumin Lipase 7209 H Blood Type O Positive Antibody Screen Negative 07/06/24 07/07/24 07/07/24 22:19 01:07 05:56 WBC RBC Hgb Hct MCV MCH MCHC RDW Plt Count MPV Immature Gran % (Auto) Neut % (Auto) Lymph % (Auto) [place] % (Auto) Eos % (Auto) Baso % (Auto) Lymph # (Auto) [place] # (Auto) Eos # (Auto) Baso # (Auto) Abs Immat Gran (auto) Absolute Neuts (auto) Absolute Nucleated RBC Nucleated RBC % Sodium Potassium Chloride Carbon Dioxide Anion Gap BUN Creatinine Estim Creat Clear Calc Estimated GFR Glucose POC Capillary Glucose 171 H 138 H 106 H Calcium Total Bilirubin AST ALT Alkaline Phosphatase C-Reactive Protein Total Protein Albumin Lipase Blood Type Antibody Screen 07/07/24 06:15 WBC 7.4 RBC 4.68 Hgb 14.5 Hct 44.4 MCV 94.9 MCH 31.0 MCHC 32.7 RDW 12.8 Plt Count 278 MPV 10.3 Immature Gran % (Auto) 2.4 H Neut % (Auto) 74.5 H Lymph % (Auto) 9.3 L [place] % (Auto) 12.2 H Eos % (Auto) 0.7 Baso % (Auto) 0.9 Lymph # (Auto) 0.69 L [place] # (Auto) 0.9 H Eos # (Auto) 0.1 Baso # (Auto) 0.1 Abs Immat Gran (auto) 0.18 H Absolute Neuts (auto) 5.5 Absolute Nucleated RBC 0.000 Nucleated RBC % 0.0 Sodium 143 Potassium 3.9 Chloride 107 Carbon Dioxide 31 H Anion Gap 5 BUN 14 Creatinine 0.80 Estim Creat Clear Calc 132 Estimated GFR > 60 Glucose 110 POC Capillary Glucose Calcium 8.5 Total Bilirubin 0.7 AST 32 ALT 16 Alkaline Phosphatase 52 C-Reactive Protein 24.9 H Total Protein 6.0 L Albumin 3.1 L Lipase 2205 H Blood Type Antibody Screen
--- NOTE | 2024-07-07 10:41 | WPDANESPN ---
Anes - Prog Note Post-Op Date/Time: 07/07/24 10:41 Cardiovascular status: normal Respiratory status: normal Airway patency: baseline Mental status: baseline Post-Op hydration status: normal Vital Signs: Last Vital Signs Temp 36.6 C 07/07/24 03:47 Pulse 101 H 07/07/24 08:00 Resp 12 07/07/24 08:00 BP 130/83 07/07/24 08:00 Pulse Ox 98 07/07/24 08:00 O2 Del Method Room Air 07/06/24 22:30 O2 Flow Rate 8 07/06/24 20:37 FiO2 21 07/05/24 07:29 Pain Score (VAS): 11/23 I/O: Intake & Output 07/06/24 07/07/24 07/07/24 23:59 07:59 15:59 Intake Total 300 880 Output Total 560 900 Balance -260 -20 Laboratory Tests 07/07/24 06:15 07/07/24 06:15 07/06/24 07/06/24 07/06/24 07:44 12:13 16:26 WBC RBC Hgb Hct MCV MCH MCHC RDW Plt Count MPV Immature Gran % (Auto) Neut % (Auto) Lymph % (Auto) [place] % (Auto) Eos % (Auto) Baso % (Auto) Lymph # (Auto) [place] # (Auto) Eos # (Auto) Baso # (Auto) Abs Immat Gran (auto) Absolute Neuts (auto) Absolute Nucleated RBC Nucleated RBC % Sodium Potassium Chloride Carbon Dioxide Anion Gap BUN Creatinine Estim Creat Clear Calc Estimated GFR Glucose POC Capillary Glucose 70 Calcium Total Bilirubin AST ALT Alkaline Phosphatase C-Reactive Protein Total Protein Albumin Lipase 7209 H Blood Type O Positive Antibody Screen Negative 07/06/24 07/07/24 07/07/24 22:19 01:07 05:56 WBC RBC Hgb Hct MCV MCH MCHC RDW Plt Count MPV Immature Gran % (Auto) Neut % (Auto) Lymph % (Auto) [place] % (Auto) Eos % (Auto) Baso % (Auto) Lymph # (Auto) [place] # (Auto) Eos # (Auto) Baso # (Auto) Abs Immat Gran (auto) Absolute Neuts (auto) Absolute Nucleated RBC Nucleated RBC % Sodium Potassium Chloride Carbon Dioxide Anion Gap BUN Creatinine Estim Creat Clear Calc Estimated GFR Glucose POC Capillary Glucose 171 H 138 H 106 H Calcium Total Bilirubin AST ALT Alkaline Phosphatase C-Reactive Protein Total Protein Albumin Lipase Blood Type Antibody Screen 07/07/24 06:15 WBC 7.4 RBC 4.68 Hgb 14.5 Hct 44.4 MCV 94.9 MCH 31.0 MCHC 32.7 RDW 12.8 Plt Count 278 MPV 10.3 Immature Gran % (Auto) 2.4 H Neut % (Auto) 74.5 H Lymph % (Auto) 9.3 L [place] % (Auto) 12.2 H Eos % (Auto) 0.7 Baso % (Auto) 0.9 Lymph # (Auto) 0.69 L [place] # (Auto) 0.9 H Eos # (Auto) 0.1 Baso # (Auto) 0.1 Abs Immat Gran (auto) 0.18 H Absolute Neuts (auto) 5.5 Absolute Nucleated RBC 0.000 Nucleated RBC % 0.0 Sodium 143 Potassium 3.9 Chloride 107 Carbon Dioxide 31 H Anion Gap 5 BUN 14 Creatinine 0.80 Estim Creat Clear Calc 132 Estimated GFR > 60 Glucose 110 POC Capillary Glucose Calcium 8.5 Total Bilirubin 0.7 AST 32 ALT 16 Alkaline Phosphatase 52 C-Reactive Protein 24.9 H Total Protein 6.0 L Albumin 3.1 L Lipase 2205 H Blood Type Antibody Screen Post-procedural complaints: none Patient Feedback: Patient satisfied with anesthetic care.
[2024-07-07 10:43] LABS: Basophils Absolute Auto 0.1 K/mm3 (0.0-0.1); Basophils Percent Auto 0.7 % (0.2-1.2); Eosinophils Absolute Auto 0.1 K/mm3 (0-0.3); Eosinophils Percent Auto 1.7 % (0-4.4); Hematocrit 42.1 % (42.0-52.0); Hemoglobin 14.3 g/dL (14.0-18.0); Immature Granulocyte Absolute 0.19 K/mm3 (0.00-0.031); Immature Granulocyte Percent A 2.7 % (0-0.5); Lymphocytes Absolute Auto 0.83 K/mm3 (0.9-3.2); Lymphocytes Percent Auto 11.7 % (18.3-44.2); Mean Corpuscular Hemoglobin 31.7 pg (26-34); Mean Corpuscular Volume 93.3 fl (80-100); Monocytes Absolute Auto 0.9 K/mm3 (0.1-0.6); Monocytes Percent Auto 12.3 % (2.6-8.5); Neutrophils Percent Auto 70.9 % (45.5-73.1); Platelet Count Result 256 k/mm3 (150-375); Red Blood Count 4.51 M/mm3 (4.6-6.20); Red Cell Distribution Width 12.9 % (11.5-14.5); White Blood Count 7.1 K/mm3 (4.5-10.0)
[2024-07-07 10:56] LABS: Partial Thromboplastin Time 37.5 Seconds (22.3-36.8)
[2024-07-07 10:58] LABS: Alanine Aminotransferase 15 U/L (6-50); Albumin Level 2.9 g/dL (3.5-5.1); Alkaline Phosphatase 55 U/L (38-126); Anion Gap 2 mmol/L (4-12); Aspartate Amino Transferase 31 U/L (17-59); Bilirubin,Total 0.7 mg/dL (0.2-1.3); Blood Urea Nitrogen 14 mg/dL (9-20); Calcium 8.4 mg/dL (8.4-10.2); Carbon Dioxide 34 mmol/L (22-30); Chloride 108 mmol/L (98-107); Estimated CRCL calculation 132 ml/min; Estimated Glomerular Filt Rate > 60; Glucose 103 mg/dL (65-110); Magnesium 1.8 mg/dL (1.6-2.3); Potassium 3.7 mmol/L (3.4-5.0); Sodium 144 mmol/L (137-145)
[2024-07-07 11:06] LABS: Transferrin 139 mg/dL (206-381)
[2024-07-07 11:22] LABS: Glucose Point of Care 92 mg/dl (65-105)
--- NOTE | 2024-07-07 12:51 | PCNFU ---
Nutrition Follow-Up Complete: Altered GI function as related to Small Bowel Obstruction as related to NPO/NGT Goal:Meet estimated nutritional needs Pt current nutrition is NPO. Nutrition recommendation: Initiate TPN for nutrition support Last recorded weight is 99.5 kg. Bowel Motility: No BM recorded at this time Labs Reviewed: all BMP WNL Meds Noted: lovenox, novolog, protonix, KCL, folic acid, thiamin Skin: WNL Additional Notes: Pt continues to be NPO, TPN to start today, orders for Clinimix E 515 at 40ml/hr to provide 1182kcals, 48g protein. This is sufficient to meet 50% of estimated needs. Recommend to advance to 80ml/hr to provide 1863kcals, 98g protein to better meet estimated needs. Will monitor weight, labs, skin, diet orders, meds every Wednesday and Wednesday
[2024-07-07] MEDS: LIDOCAINE HCL 1% PF INJ 5 ML VIAL INFILTRATE (13:40)
[2024-07-07] MEDS: AMINO ACIDS 5%/D15W/E-LYTES/CA 1,000 ML with MULTIVITAMINS-12 INJ VIAL 1 1.25 ML, MULTI... 40 ML IV CONT (14:12)
[2024-07-07] MEDS: FAT EMULSIONS IV 20% 250 ML 20.83 ML IVPB (14:12)
[2024-07-07] MEDS: KCL 40 MEQ/0.9% SOD CHL 1,000 ML 60 ML IV CONT (14:13)
--- NOTE | 2024-07-07 14:19 | WPDPN ---
Progress Note: A&P Assessment and Plan (1) Sepsis: Code(s): A41.9 - Sepsis, unspecified organism Status: Acute Assessment and Plan: Patient presents with abdominal pain and met SIRS criteria on admission with tachycardic, tachypnea, leukocytosis. UCx negative. BCx NGTD. CXR clear. CT A/P showing no acute infectious process. Infectious etiology unlikely. SIRS possibly from dehydration, SBO and/or alcohol withdrawal. Abx stopped Continue to monitor closely off abx. 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 He has a hx of SBO since with 2 small bowel resections for adhesions but no episodes for about 6 yrs. He did have a left inguinal surgery repair about [address] abd/pelvis 07/02 shows marked distention of stomach and proximal small bowel loops, with transition point in the anterior mid abdomen just deep to the umbilicus. Findings are compatible with high-grade small bowel obstruction. Distal small bowel and large bowel are relatively decompressed. GenSurg consulted. NGT secured with persistently high output: 5050->2475->1999-> not documented yet today NPO. KUB today showing slightly dilated small bowel. Continue IV fluids. Walk in halls. Assuming care. Chart reviewed. Earlier when I saw patient he was doing fine had some gas however later Ct scan showed free intraperitoneal air patient is taken to OR for exploratory laparotomy for small bowel obstruction and perforation. Today patient states the pain is little better, not passing any gas, seen by surgery service plan is to start TPN as patient needs bowel rest will continue to monitor and further recommendation to follow. (3) Acute kidney injury: Code(s): N17.9 - Acute kidney failure, unspecified Status: Acute Assessment and Plan: Cr 5.8 with BUN 38. No prior labs to compare but no hx of CKD. With IV fluids, BUN/Cr normalized. CT A/P showing normal appearing kidneys and bladder Hollister TYLER related to dehydration Monitor renal function, electrolytes and UOP. Avoid nephrotoxins. (4) Alcohol withdrawal delirium: Code(s): F10.931 - Alcohol use, unspecified with withdrawal delirium Status: Acute Assessment and Plan: Patient with evidence of severe withdrawals on admission. CIWA protocol started. Patient became much improved. Restraints and sitter were discontinued. CIWA scose down to 0-2 range Educated about the benefits of abstaining from alcohol Family in the room mention patient was talking about fentanyl. Patient denies taking fentanyl prior to admission. No UDS was performed. 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 Assuming care. Chart reviewed. Earlier when I saw patient he was doing fine had some gas however later Ct scan showed free intraperitoneal air patient is taken to OR for exploratory laparotomy for small bowel obstruction and perforation. Today patient states the pain is little better, not passing any gas, seen by surgery service plan is to start TPN as patient needs bowel rest will continue to monitor and further recommendation to follow. Review of Systems Review of Systems: All other systems reviewed and negative except as noted in the history above. All systems reviewed & are unremarkable except as noted in HPI and below ROS unobtainable: Yes unobtainable due to mental status Exam Narrative: Patient is comfortable, NAD HEENT: eyes are clear and none icteric, NG tube in place LUNGS:CTA HEART: RR S1S2 ABD: BS+ faint and diffusely tender Lower extremities: no edema SKIN: nonjaundiced Neuro: grossly intact. Objective Data Vital Signs Vital Signs: Vital Signs - 24 hr 07/06/24 16:00 07/06/24 17:34 07/06/24 20:37 Temperature 37.3 C 36.6 C 37.3 C Pulse Rate 117 H 119 H 108 H Respiratory Rate 18 18 24 H Blood Pressure 148/106 H 144/92 H 138/95 H Pulse Oximetry 99 98 94 Oxygen Delivery Room Air Simple Face Mask Oxygen Flow Rate 8 07/06/24 20:50 07/06/24 21:05 07/06/24 21:20 Temperature Pulse Rate 110 H 110 H 114 H Respiratory Rate 20 16 16 Blood Pressure 147/90 H 147/88 H 147/96 H Pulse Oximetry 93 94 100 Oxygen Delivery Room Air Room Air Room Air Oxygen Flow Rate 07/06/24 21:35 07/06/24 21:50 07/06/24 22:15 Temperature 36.9 C Pulse Rate 108 H 104 H 108 H Respiratory Rate 20 20 16 Blood Pressure 131/87 144/83 H 151/103 H Pulse Oximetry 94 94 96 Oxygen Delivery Room Air Room Air Oxygen Flow Rate 07/06/24 22:30 07/06/24 22:55 07/06/24 23:00 Temperature 37.2 C 36.7 C Pulse Rate 104 H 107 H Respiratory Rate 16 16 16 Blood Pressure 132/96 H 158/89 H Pulse Oximetry 96 93 93 Oxygen Delivery Oxygen Flow Rate 07/06/24 23:55 07/07/24 00:00 07/07/24 00:55 Temperature 36.9 C Pulse Rate 107 H Respiratory Rate 18 18 20 Blood Pressure 146/97 H Pulse Oximetry 97 97 97 Oxygen Delivery Oxygen Flow Rate 07/07/24 01:55 07/07/24 02:55 07/06/24 22:30 Temperature Pulse Rate Respiratory Rate 18 18 Blood Pressure Pulse Oximetry 95 95 Oxygen Delivery Room Air Oxygen Flow Rate 07/07/24 03:47 07/07/24 03:55 07/07/24 07:18 Temperature 36.6 C Pulse Rate 102 H Respiratory Rate 16 16 16 Blood Pressure 143/92 H Pulse Oximetry 98 98 Oxygen Delivery Oxygen Flow Rate 07/07/24 07:18 07/07/24 08:00 07/07/24 08:00 Temperature Pulse Rate 101 H Respiratory Rate 16 12 Blood Pressure 130/83 Pulse Oximetry 98 Oxygen Delivery Room Air Oxygen Flow Rate Intake/Output Intake/Output: Intake & Output 07/04/24 07/05/24 07/06/24 07/07/24 23:59 23:59 23:59 23:59 Intake Total 3300.0 2141.7 1775 980 Output Total 3200 700 760 900 Balance 100.0 1441.7 1015 80 Meds/Results Medications: Active Medications Generic Name Dose Route Start Last Admin Trade Name Freq PRN Reason Stop Dose Admin Amitriptyline HCl 25 mg 07/06/24 21:00 07/06/24 22:36 Amitriptyline Hcl 25 Mg Tablet PO Not Given HS EMILE Bupropion HCl 300 mg 07/06/24 10:10 07/07/24 07:58 Bupropion Hcl Xl (24 Hr) 150 Mg Tabcr PO Not Given DAILY EMILE Buspirone HCl 5 mg 07/07/24 21:00 Buspirone Hcl 5 Mg Tablet BY MOUTH HS EMILE Buspirone HCl 30 mg 07/06/24 10:25 07/07/24 07:59 Buspirone Hcl 10 Mg Tablet PO Not Given DAILY EMILE Buspirone HCl 10 mg 07/06/24 21:00 07/06/24 22:36 Buspirone Hcl 10 Mg Tablet BY MOUTH Not Given HS EMILE Dextrose 12.5 gm 07/02/24 14:18 Dextrose 50% 25 Gm/50 Ml Syringe IV PUSH PRN PRN Hypoglycemia Protocol Enoxaparin Sodium 40 mg 07/06/24 09:00 07/07/24 07:58 Enoxaparin 40 Mg/0.4 Ml Syringe SUB-Q 40 mg DAILY EMILE Administration Fluticasone Propionate 2 spray 07/06/24 10:10 07/07/24 07:59 Fluticasone Propionate 0.05% Na Spr 16 Gm Btl (*Bkc) NASAL Not Given DAILY EMILE Folic Acid 1 mg 07/03/24 09:00 07/07/24 09:04 Folic Acid 1 Mg/0.2 Ml Inj IV PUSH 1 mg QAM EMILE Administration Glucagon 1 mg 07/02/24 14:18 Glucagon For Inj 1 Mg Vial IM PRN PRN Hypoglycemia Protocol Dextrose 1,000 mls @ 100 mls/hr 07/02/24 14:18 Dextrose 5% 1,000 Ml IVPB PRN PRN Hypoglycemia Protocol Ibuprofen 800 mg in 200 mls @ 400 mls/hr 07/07/24 00:00 07/07/24 11:48 Caldolor 800 Mg/200 Ml IVPB 400 mls/hr Q6H EMILE Administration Metronidazole 500 mg in 100 mls @ 100 mls/hr 07/06/24 22:00 07/07/24 14:12 Flagyl 500 Mg/Iso Soln 100 Ml IVPB 100 mls/hr Q8H EMILE Administration Morphine Sulfate 30 mg in 30 mls @ 1 mls/hr 07/06/24 21:57 07/07/24 12:19 Morphine Sulfate Local Driver IV CONT 1 mg/hr PRN PRN 1 mls/hr PARKING SUPERVISOR Management Titration Protocol 1 MG/HR Levofloxacin/Dextrose 750 mg in 150 mls @ 100 mls/hr 07/08/24 02:00 Levaquin 750 Mg/D5w 150 Ml IVPB Q24H EMILE Potassium Chloride/Sodium Chloride 1,000 mls @ 60 mls/hr 07/07/24 16:00 07/07/24 14:13 Kcl 40 Meq/Ns IV CONT 60 mls/hr .[id number] EMILE Administration Dextrose 1,000 mls @ 50 mls/hr 07/07/24 10:08 Dextrose 10% IV CONT .Q20H PRN if PN is interrupted Multivitamins 1.25 ml/ 1,002.5 mls @ 40 mls/hr 07/07/24 14:00 07/07/24 14:12 Multivitamins 1.25 ml/ Amino IV CONT 40 mls/hr Acids/Electrolytes/Dextrose .Q24H EMILE Administration Protocol Fat Emulsion Intravenous 250 mls @ 20.833 mls/hr 07/07/24 14:00 07/07/24 14:12 Lipids 20% IVPB 20.83 mls/hr Q24H EMILE Administration Insulin Aspart 2 - 5 units 07/02/24 18:00 07/07/24 11:48 Insulin Aspart (*Bkc) 100 Units/Ml SUB-Q Not Given Q6HR [facility] Protocol Lorazepam 1 mg 07/05/24 15:49 07/06/24 16:25 Lorazepam Inj (*Crx) 2 Mg/Ml Vial IV PUSH 1 mg Q6H PRN Administration Anxiety Naloxone HCl 0.1 mg 07/07/24 09:20 Naloxone Hcl 0.4 Mg/Ml Vial IV PUSH Q5MIN PRN Opioid Reversal Non Formulary 1 each 07/07/24 09:00 07/07/24 09:04 Desvenlafaxine PO 08/06/24 08:59 Not Given Succinate 25 Mg Tab DAILY [facility] Er Pantoprazole Sodium 40 mg 07/05/24 16:00 07/07/24 07:58 Pantoprazole Sodium Iv 40 Mg Vial IV PUSH 40 mg QAM EMILE Administration Phenol 1 spray 07/02/24 12:12 07/07/24 06:41 Phenol/Sod Pheno [place] Mendez (*Bkc) MUCOUS MEM 1 spray PRN PRN Administration Sore Throat Prochlorperazine Edisylate 10 mg 07/06/24 21:57 Prochlorperazine Edisylate 10 Mg/2 Ml Vial IV PUSH Q6H PRN Nausea And Vomiting Sodium Chloride 10 ml 07/07/24 22:00 Central Line Flush IV PUSH Q8HR EMILE Sodium Chloride 10 ml 07/07/24 14:09 Central Line Flush IV PUSH PRN PRN with TPN bag changes Sodium Chloride 20 ml 07/07/24 14:09 Central Line Flush IV PUSH PRN PRN after blood draws Sodium Chloride 20 ml 07/07/24 14:15 Central Line Flush IV PUSH PRN PRN after blood draws Sodium Chloride 10 ml 07/07/24 14:15 Central Line Flush IV PUSH PRN PRN with TPN bag changes Sodium Chloride 10 ml 07/07/24 22:00 Central Line Flush IV PUSH Q8HR MEILE Thiamine HCl 100 mg 07/03/24 09:00 07/07/24 07:58 Thiamine Hcl 200 Mg/2 Ml Vial IV PUSH 100 mg DAILY EMILE Administration Radiology Results: ITS Impressions Small Bowel X-Ray 07/05/24 18:48 IMPRESSION: Delayed passage into the colon with reduction in caliber of the visualized small bowel, markedly distended on initial evaluation. Abdomen X-Ray 07/06/24 10:47 Impression: Probable small bowel obstruction with NG tube in place. There is oral contrast in large bowel. Abdomen/Pelvis CT 07/06/24 15:14 IMPRESSION: 1. Free intraperitoneal gas and small volume of ascites, consistent with bowel perforation. I called this result to Meg Francisco. 2. Small bowel obstruction. 3. Normal pancreas. Chest X-Ray 07/07/24 14:02 IMPRESSION: 1. Right upper extremity PICC line likely extending into the azygos vein. Considering rapid saline flush for repositioning. 2. Opacities in the bilateral lower lung zones which could represent atelectasis and/or pneumonia. Labs Labs: Laboratory Results - last 24 hr 07/06/24 07/06/24 07/07/24 16:26 22:19 01:07 WBC RBC Hgb Hct MCV MCH MCHC RDW Plt Count MPV Immature Gran % (Auto) Neut % (Auto) Lymph % (Auto) [place] % (Auto) Eos % (Auto) Baso % (Auto) Lymph # (Auto) [place] # (Auto) Eos # (Auto) Baso # (Auto) Abs Immat Gran (auto) Absolute Neuts (auto) Absolute Nucleated RBC Nucleated RBC % APTT Sodium Potassium Chloride Carbon Dioxide Anion Gap BUN Creatinine Estim Creat Clear Calc Estimated GFR Glucose POC Capillary Glucose 171 H 138 H Calcium Magnesium Transferrin Total Bilirubin AST ALT Alkaline Phosphatase C-Reactive Protein Total Protein Albumin Lipase Blood Type O Positive Antibody Screen Negative 07/07/24 07/07/24 07/07/24 05:56 06:15 10:37 WBC 7.4 7.1 RBC 4.68 4.51 L Hgb 14.5 14.3 Hct 44.4 42.1 MCV 94.9 93.3 MCH 31.0 31.7 MCHC 32.7 34.0 RDW 12.8 12.9 Plt Count 278 256 MPV 10.3 10.0 Immature Gran % (Auto) 2.4 H 2.7 H Neut % (Auto) 74.5 H 70.9 Lymph % (Auto) 9.3 L 11.7 L [place] % (Auto) 12.2 H 12.3 H Eos % (Auto) 0.7 1.7 Baso % (Auto) 0.9 0.7 Lymph # (Auto) 0.69 L 0.83 L [place] # (Auto) 0.9 H 0.9 H Eos # (Auto) 0.1 0.1 Baso # (Auto) 0.1 0.1 Abs Immat Gran (auto) 0.18 H 0.19 H Absolute Neuts (auto) 5.5 5.0 Absolute Nucleated RBC 0.000 0.000 Nucleated RBC % 0.0 0.0 APTT 37.5 H Sodium 143 144 Potassium 3.9 3.7 Chloride 107 108 H Carbon Dioxide 31 H 34 H Anion Gap 5 2 L BUN 14 14 Creatinine 0.80 0.80 Estim Creat Clear Calc 132 132 Estimated GFR > 60 > 60 Glucose 110 103 POC Capillary Glucose 106 H Calcium 8.5 8.4 Magnesium 1.8 Transferrin 139 L Total Bilirubin 0.7 0.7 AST 32 31 ALT 16 15 Alkaline Phosphatase 52 55 C-Reactive Protein 24.9 H Total Protein 6.0 L 6.0 L Albumin 3.1 L 2.9 L Lipase 2205 H Blood Type Antibody Screen 07/07/24 11:16 WBC RBC Hgb Hct MCV MCH MCHC RDW Plt Count MPV Immature Gran % (Auto) Neut % (Auto) Lymph % (Auto) [place] % (Auto) Eos % (Auto) Baso % (Auto) Lymph # (Auto) [place] # (Auto) Eos # (Auto) Baso # (Auto) Abs Immat Gran (auto) Absolute Neuts (auto) Absolute Nucleated RBC Nucleated RBC % APTT Sodium Potassium Chloride Carbon Dioxide Anion Gap BUN Creatinine Estim Creat Clear Calc Estimated GFR Glucose POC Capillary Glucose 92 Calcium Magnesium Transferrin Total Bilirubin AST ALT Alkaline Phosphatase C-Reactive Protein Total Protein Albumin Lipase Blood Type Antibody Screen Quality VTE Prophylaxis VTE prophylaxis: mechanical ordered
[2024-07-07] MEDS: PROCHLORPERAZINE EDISYLATE 10 MG/2 ML VIAL IV PUSH (16:54)
[2024-07-07 18:10] LABS: Glucose Point of Care 106 mg/dl (65-105)
[2024-07-07 20:26] LABS: Glucose Point of Care 109 mg/dl (65-105)
[2024-07-07] MEDS: busPIRone HCL 5 MG TABLET BY MOUTH (20:34)
[2024-07-07] MEDS: AMITRIPTYLINE HCL 25 MG TABLET PO (20:34)
[2024-07-07] MEDS: busPIRone HCL 10 MG TABLET BY MOUTH (20:34)
[2024-07-07] MEDS: CENTRAL LINE FLUSH 10 ML IV PUSH (20:46)
[2024-07-07] MEDS: LORazepam INJ (*CRX) 2 MG/ML VIAL 1 MG IV PUSH (22:56)
[2024-07-08] VITALS (7 sets, daily range): BP systolic 128–159; BP diastolic 78–104; PULSE 86–115; RESP 12–20; TEMP 36.2–37.2; O2SAT 92–97
[2024-07-08] MEDS: levoFLOXacin 750 MG/D5W 150 ML 750 MG/150 ML BAG 100 MG IVPB (01:51)
[2024-07-08] MEDS: PROCHLORPERAZINE EDISYLATE 10 MG/2 ML VIAL IV PUSH (05:03)
[2024-07-08] MEDS: IBUPROFEN IV 800 MG/200 ML 800 MG/200 ML BAG 400 MG IVPB ×4 (05:04→23:00)
[2024-07-08] MEDS: MORPHINE SULFATE PCA (*CRX) 30 MG/30 ML SYR IV CONT ×2 (05:20→16:16)
[2024-07-08 05:34] LABS: Hematocrit 37.7 % (42.0-52.0); Hemoglobin 12.1 g/dL (14.0-18.0); Mean Corpuscular HGB Conc 32.1 g/dl (32-36); Mean Corpuscular Volume 96.7 fl (80-100); Mean Platelet Volume 10.6 fl (7.4-10.4); Platelet Count Result 228 k/mm3 (150-375); Red Cell Distribution Width 12.9 % (11.5-14.5); White Blood Count 8.4 K/mm3 (4.5-10.0)
[2024-07-08 05:45] LABS: Anion Gap 2 mmol/L (4-12); Blood Urea Nitrogen 16 mg/dL (9-20); Calcium 8.2 mg/dL (8.4-10.2); Carbon Dioxide 30 mmol/L (22-30); Chloride 106 mmol/L (98-107); Estimated CRCL calculation 149 ml/min; Estimated Glomerular Filt Rate > 60; Glucose 407 mg/dL (65-110); Lipase 1435 U/L (23-300); Magnesium 2.1 mg/dL (1.6-2.3); Phosphorus 3.6 mg/dL (2.5-4.5); Potassium 4.3 mmol/L (3.4-5.0); Sodium 138 mmol/L (137-145); Triglycerides 142 mg/dL (<150)
[2024-07-08] MEDS: metroNIDAZOLE 500 MG/ISO 100ML 500 MG/100 ML BAG 100 MG IVPB ×3 (06:15→20:41)
[2024-07-08] MEDS: CENTRAL LINE FLUSH 10 ML IV PUSH ×3 (06:30→20:43)
[2024-07-08 06:33] LABS: Glucose Point of Care 95 mg/dl (65-105)
[2024-07-08] MEDS: KCL 40 MEQ/0.9% SOD CHL 1,000 ML 50 ML IV CONT (07:00)
[2024-07-08] MEDS: PANTOPRAZOLE SODIUM IV 40 MG VIAL IV PUSH (08:12)
[2024-07-08] MEDS: ENOXAPARIN 40 MG/0.4 ML SYRINGE SUB-Q (08:12)
[2024-07-08] MEDS: THIAMINE HCL 200 MG/2 ML VIAL 100 MG IV PUSH (08:12)
[2024-07-08] MEDS: FOLIC ACID 1 MG/0.2 ML INJ IV PUSH (08:30)
--- NOTE | 2024-07-08 11:05 | PC.NURSE ---
PT ambulated around nurses station 3 times, with walker, assited by this RN and PCT. Tolerated well.
[2024-07-08 12:06] LABS: Glucose Point of Care 85 mg/dl (65-105)
[2024-07-08] MEDS: FAT EMULSIONS IV 20% 250 ML 20.83 ML IVPB (13:14)
--- NOTE | 2024-07-08 13:37 | P.PNGS_ITS ---
Progress Note: A&P Assessment and Plan (1) Obstruction of small intestine due to peritoneal adhesion: Code(s): K56.50 - Intestinal adhesions [bands], unspecified as to partial versus complete obstruction Status: Acute Assessment and Plan: * Remove Sin today * Await return of bowel function * Increase TPN to 80 mL/hr (2) Small bowel perforation: Code(s): K63.1 - Perforation of intestine (nontraumatic) Status: Acute Subjective Subjective Date/Time Seen: 07/08/24 13:37 Interval history: No flatus or BM yet. Up ambulating in halls. Pain controlled with SPORTS ATTORNEY. No fevers. Exam GI: Inspection: non-distended and incision (intact with sandor) GI Palp: Yes Soft to palpation, Yes Tenderness to palpation present (GI) (incisional) and No Guarding due to palpation present (GI) Auscultation: Hypoactive bowel sounds present Objective Data Vital Signs Vital Signs: Vital Signs - 24 hr 07/07/24 16:00 07/07/24 20:00 07/07/24 20:00 Temperature 97.5 F L Pulse Rate 96 83 Respiratory Rate 12 14 Blood Pressure 120/76 126/86 Pulse Oximetry 100 98 98 Oxygen Delivery Room Air 07/07/24 23:55 07/08/24 04:19 07/08/24 08:00 Temperature 97.8 F 99.0 F 97.5 F L Pulse Rate 80 98 86 Respiratory Rate 16 16 14 Blood Pressure 124/71 128/88 141/78 H Pulse Oximetry 98 95 97 Oxygen Delivery 07/08/24 12:00 Temperature 97.1 F L Pulse Rate 96 Respiratory Rate 20 Blood Pressure 131/85 Pulse Oximetry 97 Oxygen Delivery Intake/Output Intake/Output: Intake & Output 07/05/24 07/06/24 07/07/24 07/08/24 23:59 23:59 23:59 23:59 Intake Total 2141.7 1775 1810 850 Output Total 087 165 3733 1000 Balance 1441.7 1015 -340 -150 Meds/Results Medications: Active Medications Generic Name Dose Route Start Last Admin Trade Name Freq PRN Reason Stop Dose Admin Amitriptyline HCl 25 mg 07/06/24 21:00 07/07/24 20:34 Amitriptyline Hcl 25 Mg Tablet PO 25 mg HS EMILE Administration Bupropion HCl 300 mg 07/06/24 10:10 07/08/24 08:03 Bupropion Hcl Xl (24 Hr) 150 Mg Tabcr PO Not Given DAILY EMILE Buspirone HCl 5 mg 07/07/24 21:00 07/07/24 20:34 Buspirone Hcl 5 Mg Tablet BY MOUTH 5 mg HS EMILE Administration Buspirone HCl 30 mg 07/06/24 10:25 07/08/24 08:04 Buspirone Hcl 10 Mg Tablet PO Not Given DAILY EMILE Buspirone HCl 10 mg 07/06/24 21:00 07/07/24 20:34 Buspirone Hcl 10 Mg Tablet BY MOUTH 10 mg HS EMILE Administration Dextrose 12.5 gm 07/02/24 14:18 Dextrose 50% 25 Gm/50 Ml Syringe IV PUSH PRN PRN Hypoglycemia Protocol Enoxaparin Sodium 40 mg 07/06/24 09:00 07/08/24 08:12 Enoxaparin 40 Mg/0.4 Ml Syringe SUB-Q 40 mg DAILY EMILE Administration Fluticasone Propionate 2 spray 07/06/24 10:10 07/08/24 08:04 Fluticasone Propionate 0.05% Na Spr 16 Gm Btl (*Bkc) NASAL Not Given DAILY EMILE Folic Acid 1 mg 07/03/24 09:00 07/08/24 08:30 Folic Acid 1 Mg/0.2 Ml Inj IV PUSH 1 mg QAM EMILE Administration Glucagon 1 mg 07/02/24 14:18 Glucagon For Inj 1 Mg Vial IM PRN PRN Hypoglycemia Protocol Dextrose 1,000 mls @ 100 mls/hr 07/02/24 14:18 Dextrose 5% 1,000 Ml IVPB PRN PRN Hypoglycemia Protocol Ibuprofen 800 mg in 200 mls @ 400 mls/hr 07/07/24 00:00 07/08/24 12:14 Caldolor 800 Mg/200 Ml IVPB 400 mls/hr Q6H EMILE Administration Metronidazole 500 mg in 100 mls @ 100 mls/hr 07/06/24 22:00 07/08/24 13:16 Flagyl 500 Mg/Iso Soln 100 Ml IVPB 100 mls/hr Q8H EMILE Administration Morphine Sulfate 30 mg in 30 mls @ 1 mls/hr 07/06/24 21:57 07/08/24 05:20 Morphine Sulfate Director Strategic Account Management IV CONT 1 mg/hr PRN PRN 1 mls/hr SPORTS ATTORNEY Management Administration Protocol 1 MG/HR Levofloxacin/Dextrose 750 mg in 150 mls @ 100 mls/hr 07/08/24 02:00 07/08/24 03:22 Levaquin 750 Mg/D5w 150 Ml IVPB Infused Q24H EMILE Infusion Potassium Chloride/Sodium Chloride 1,000 mls @ 50 mls/hr 07/07/24 16:00 07/07/24 14:13 Kcl 40 Meq/Ns IV CONT 60 mls/hr .Q20H EMILE Administration Dextrose 1,000 mls @ 50 mls/hr 07/07/24 10:08 Dextrose 10% IV CONT .Q20H PRN if PN is interrupted Multivitamins 1.25 ml/ 1,002.5 mls @ 80 mls/hr 07/07/24 14:00 07/07/24 14:12 Multivitamins 1.25 ml/ Amino IV CONT 40 mls/hr Acids/Electrolytes/Dextrose .[id number] EMILE Administration Protocol Fat Emulsion Intravenous 250 mls @ 20.833 mls/hr 07/07/24 14:00 07/08/24 13:14 Lipids 20% IVPB 20.83 mls/hr Q24H EMILE Administration Insulin Aspart 2 - 5 units 07/02/24 18:00 07/08/24 12:49 Insulin Aspart (*Bkc) 100 Units/Ml SUB-Q Not Given Q6HR [facility] Protocol Lorazepam 1 mg 07/05/24 15:49 07/07/24 22:56 Lorazepam Inj (*Crx) 2 Mg/Ml Vial IV PUSH 1 mg Q6H PRN Administration Anxiety Naloxone HCl 0.1 mg 07/07/24 09:20 Naloxone Hcl 0.4 Mg/Ml Vial IV PUSH Q5MIN PRN Opioid Reversal Non Formulary 1 each 07/07/24 09:00 07/08/24 08:04 Desvenlafaxine PO 08/06/24 08:59 Not Given Succinate 25 Mg Tab DAILY EMILE Er Pantoprazole Sodium 40 mg 07/05/24 16:00 07/08/24 08:12 Pantoprazole Sodium Iv 40 Mg Vial IV PUSH 40 mg QAM EMILE Administration Phenol 1 spray 07/02/24 12:12 07/07/24 06:41 Phenol/Sod Pheno [place] Mendez (*Bkc) MUCOUS MEM 1 spray PRN PRN Administration Sore Throat Prochlorperazine Edisylate 10 mg 07/06/24 21:57 07/08/24 05:03 Prochlorperazine Edisylate 10 Mg/2 Ml Vial IV PUSH 10 mg Q6H PRN Administration Nausea And Vomiting Sodium Chloride 10 ml 07/07/24 14:09 Central Line Flush IV PUSH PRN PRN with TPN bag changes Sodium Chloride 20 ml 07/07/24 14:09 Central Line Flush IV PUSH PRN PRN after blood draws Sodium Chloride 10 ml 07/07/24 22:00 07/08/24 13:16 Central Line Flush IV PUSH 10 ml Q8HR EMILE Administration Thiamine HCl 100 mg 07/03/24 09:00 07/08/24 08:12 Thiamine Hcl 200 Mg/2 Ml Vial IV PUSH 100 mg DAILY EMILE Administration Radiology Results: ITS Impressions Small Bowel X-Ray 07/05/24 18:48 IMPRESSION: Delayed passage into the colon with reduction in caliber of the visualized small bowel, markedly distended on initial evaluation. Abdomen X-Ray 07/06/24 10:47 Impression: Probable small bowel obstruction with NG tube in place. There is oral contrast in large bowel. Abdomen/Pelvis CT 07/06/24 15:14 IMPRESSION: 1. Free intraperitoneal gas and small volume of ascites, consistent with bowel perforation. I called this result to Meg Francisco. 2. Small bowel obstruction. 3. Normal pancreas. Chest X-Ray 07/07/24 14:34 IMPRESSION: 1. Stable airspace opacities in the lower lung zones, consistent with atelectasis versus pneumonia. Labs Labs: Laboratory Results - last 24 hr 07/07/24 07/07/24 07/08/24 18:07 20:03 05:20 WBC 8.4 RBC 3.90 L Hgb 12.1 L Hct 37.7 L MCV 96.7 MCH 31.0 MCHC 32.1 RDW 12.9 Plt Count 228 MPV 10.6 H Sodium 138 Potassium 4.3 Chloride 106 Carbon Dioxide 30 Anion Gap 2 L BUN 16 Creatinine 0.70 Estim Creat Clear Calc 149 Estimated GFR > 60 Glucose 407 H POC Capillary Glucose 106 H 109 H Calcium 8.2 L Phosphorus 3.6 Magnesium 2.1 Triglycerides 142 Lipase 1435 H 07/08/24 07/08/24 06:07 11:58 WBC RBC Hgb Hct MCV MCH MCHC RDW Plt Count MPV Sodium Potassium Chloride Carbon Dioxide Anion Gap BUN Creatinine Estim Creat Clear Calc Estimated GFR Glucose POC Capillary Glucose 95 85 Calcium Phosphorus Magnesium Triglycerides Lipase
[2024-07-08] MEDS: LORazepam INJ (*CRX) 2 MG/ML VIAL 1 MG IV PUSH (14:52)
[2024-07-08] MEDS: AMINO ACIDS 5%/D15W/E-LYTES/CA 1,000 ML with MULTIVITAMINS-12 INJ VIAL 1 1.25 ML, MULTI... 40 ML IV CONT (15:47)
--- NOTE | 2024-07-08 16:23 | PM.IMPN ---
Progress Note: A&P Assessment and Plan (1) Sepsis: Code(s): A41.9 - Sepsis, unspecified organism Status: Acute Assessment and Plan: Patient presents with abdominal pain and met SIRS criteria on admission with tachycardic, tachypnea, leukocytosis. UCx negative. BCx NGTD. CXR clear. CT A/P showing no acute infectious process. Infectious etiology unlikely. SIRS possibly from dehydration, SBO and/or alcohol withdrawal. Abx stopped Continue to monitor closely off abx. 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 He has a hx of SBO since with 2 small bowel resections for adhesions but no episodes for about 6 yrs. He did have a left inguinal surgery repair about [address] abd/pelvis 07/02 shows marked distention of stomach and proximal small bowel loops, with transition point in the anterior mid abdomen just deep to the umbilicus. Findings are compatible with high-grade small bowel obstruction. Distal small bowel and large bowel are relatively decompressed. GenSurg consulted. Current hospitalization,he presented with the severe small-bowel obstruction and dehydration with TYLER. Nasogastric tube and fluid resuscitation as well as analgesics were administered. He improved significantly and had a water-soluble small bowel follow-through . This showed the contrast went through to the colon but it was very prolonged. Patient had had 2 or 3 bowel movements and was wanting to at least try clear liquids. He started clear liquids and it was noted he had a serum lipase of over 7000. On 07/[address] scan was performed. It showed that there was a bowel perforation. He is taken to surgery emergently for bowel perforation in the setting of small-bowel obstruction. Currently patient is on postop day 2,Status post small bowel resection x2 and extensive adhesiolysis. (3) Acute kidney injury: Code(s): N17.9 - Acute kidney failure, unspecified Status: Acute Assessment and Plan: Cr 5.8 with BUN 38. No prior labs to compare but no hx of CKD. With IV fluids, BUN/Cr normalized. CT A/P showing normal appearing kidneys and bladder [place] TYLER related to dehydration Monitor renal function, electrolytes and UOP. Avoid nephrotoxins. (4) Alcohol withdrawal delirium: Code(s): F10.931 - Alcohol use, unspecified with withdrawal delirium Status: Acute Assessment and Plan: Patient with evidence of severe withdrawals on admission. CIWA protocol started. Patient became much improved. Restraints and sitter were discontinued. CIWA scose down to 0-2 range Educated about the benefits of abstaining from alcohol Family in the room mention patient was talking about fentanyl. Patient denies taking fentanyl prior to admission. No UDS was performed. 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 Currently patient is on postop day 2,Status post small bowel resection x2 and extensive adhesiolysis.. Patient reports his whole abdomen history started in the year of 2008 which includes resection of Meckel's diverticular, small-bowel obstruction, hernia repair. After that in the year of 2013, 2015, 2023 he had surgeries including adhesions, hernia repair and small-bowel obstruction. During the current hospitalization,he presented with the severe small-bowel obstruction and dehydration with TYLER. Nasogastric tube and fluid resuscitation as well as analgesics were administered. He improved significantly and had a water-soluble small bowel follow-through . This showed the contrast went through to the colon but it was very prolonged. Patient had had 2 or 3 bowel movements and was wanting to at least try clear liquids. He started clear liquids and it was noted he had a serum lipase of over 7000. Stat CT scan was performed. It showed that there was a bowel perforation. He is taken to surgery emergently for bowel perforation in the setting of small-bowel obstruction. Currently patient is on postop day 2,Status post small bowel resection x2 and extensive adhesiolysis. Review of Systems Review of Systems: All other systems reviewed and negative except as noted in the history above. All systems reviewed & are unremarkable except as noted in HPI and below ROS unobtainable: Yes unobtainable due to mental status Exam Narrative: Patient is comfortable, NAD HEENT: eyes are clear and none icteric, NG tube in place LUNGS:CTA HEART: RR S1S2 ABD: BS+ faint and diffusely tender Lower extremities: no edema SKIN: nonjaundiced Neuro: grossly intact. Objective Data Vital Signs Vital Signs: Vital Signs - 24 hr 07/07/24 20:00 07/07/24 20:00 07/07/24 23:55 Temperature 97.5 F L 97.8 F Pulse Rate 83 80 Respiratory Rate 14 16 Blood Pressure 126/86 124/71 Pulse Oximetry 98 98 98 Oxygen Delivery Room Air 07/08/24 04:19 07/08/24 08:00 07/08/24 12:00 Temperature 99.0 F 97.5 F L 97.1 F L Pulse Rate 98 86 96 Respiratory Rate 16 14 20 Blood Pressure 128/88 141/78 H 131/85 Pulse Oximetry 95 97 97 Oxygen Delivery 07/08/24 16:16 07/08/24 16:16 Temperature Pulse Rate Respiratory Rate 12 12 Blood Pressure Pulse Oximetry Oxygen Delivery Intake/Output Intake/Output: Intake & Output 07/05/24 07/06/24 07/07/24 07/08/24 23:59 23:59 23:59 23:59 Intake Total 2141.7 1775 1810 2182.5 Output Total 385 095 7064 1000 Balance 1441.7 1015 -340 1182.5 Meds/Results Medications: Active Medications Generic Name Dose Route Start Last Admin Trade Name Freq PRN Reason Stop Dose Admin Amitriptyline HCl 25 mg 07/06/24 21:00 07/07/24 20:34 Amitriptyline Hcl 25 Mg Tablet PO 25 mg HS EMILE Administration Bupropion HCl 300 mg 07/06/24 10:10 07/08/24 08:03 Bupropion Hcl Xl (24 Hr) 150 Mg Tabcr PO Not Given DAILY EMILE Buspirone HCl 5 mg 07/07/24 21:00 07/07/24 20:34 Buspirone Hcl 5 Mg Tablet BY MOUTH 5 mg HS EMILE Administration Buspirone HCl 30 mg 07/06/24 10:25 07/08/24 08:04 Buspirone Hcl 10 Mg Tablet PO Not Given DAILY EMILE Buspirone HCl 10 mg 07/06/24 21:00 07/07/24 20:34 Buspirone Hcl 10 Mg Tablet BY MOUTH 10 mg HS EMILE Administration Dextrose 12.5 gm 07/02/24 14:18 Dextrose 50% 25 Gm/50 Ml Syringe IV PUSH PRN PRN Hypoglycemia Protocol Enoxaparin Sodium 40 mg 07/06/24 09:00 07/08/24 08:12 Enoxaparin 40 Mg/0.4 Ml Syringe SUB-Q 40 mg DAILY EMILE Administration Fluticasone Propionate 2 spray 07/06/24 10:10 07/08/24 08:04 Fluticasone Propionate 0.05% Na Spr 16 Gm Btl (*Bkc) NASAL Not Given DAILY EMILE Folic Acid 1 mg 07/03/24 09:00 07/08/24 08:30 Folic Acid 1 Mg/0.2 Ml Inj IV PUSH 1 mg QAM EMILE Administration Glucagon 1 mg 07/02/24 14:18 Glucagon For Inj 1 Mg Vial IM PRN PRN Hypoglycemia Protocol Dextrose 1,000 mls @ 100 mls/hr 07/02/24 14:18 Dextrose 5% 1,000 Ml IVPB PRN PRN Hypoglycemia Protocol Ibuprofen 800 mg in 200 mls @ 400 mls/hr 07/07/24 00:00 07/08/24 12:44 Caldolor 800 Mg/200 Ml IVPB Infused Q6H EMILE Infusion Metronidazole 500 mg in 100 mls @ 100 mls/hr 07/06/24 22:00 07/08/24 15:55 Flagyl 500 Mg/Iso Soln 100 Ml IVPB Infused Q8H EMILE Infusion Morphine Sulfate 30 mg in 30 mls @ 1 mls/hr 07/06/24 21:57 07/08/24 16:16 Morphine Sulfate Entry Level Staff Accountant IV CONT 1 mg/hr PRN PRN 1 mls/hr BIOINFORMATICS SOFTWARE ENGINEER Management Administration Protocol 1 MG/HR Levofloxacin/Dextrose 750 mg in 150 mls @ 100 mls/hr 07/08/24 02:00 07/08/24 03:22 Levaquin 750 Mg/D5w 150 Ml IVPB Infused Q24H EMILE Infusion Potassium Chloride/Sodium Chloride 1,000 mls @ 50 mls/hr 07/07/24 16:00 07/07/24 14:13 Kcl 40 Meq/Ns IV CONT 60 mls/hr .Q20H EMILE Administration Dextrose 1,000 mls @ 50 mls/hr 07/07/24 10:08 Dextrose 10% IV CONT .Q20H PRN if PN is interrupted Multivitamins 1.25 ml/ 1,002.5 mls @ 80 mls/hr 07/07/24 14:00 07/08/24 15:47 Multivitamins 1.25 ml/ Amino IV CONT 40 mls/hr Acids/Electrolytes/Dextrose .[id number] EMILE Administration Protocol Fat Emulsion Intravenous 250 mls @ 20.833 mls/hr 07/07/24 14:00 07/08/24 13:14 Lipids 20% IVPB 20.83 mls/hr Q24H EMILE Administration Insulin Aspart 2 - 5 units 07/02/24 18:00 07/08/24 12:49 Insulin Aspart (*Bkc) 100 Units/Ml SUB-Q Not Given Q6HR [facility] Protocol Lorazepam 1 mg 07/05/24 15:49 07/08/24 14:52 Lorazepam Inj (*Crx) 2 Mg/Ml Vial IV PUSH 1 mg Q6H PRN Administration Anxiety Naloxone HCl 0.1 mg 07/07/24 09:20 Naloxone Hcl 0.4 Mg/Ml Vial IV PUSH Q5MIN PRN Opioid Reversal Non Formulary 1 each 07/07/24 09:00 07/08/24 08:04 Desvenlafaxine PO 08/06/24 08:59 Not Given Succinate 25 Mg Tab DAILY EMILE Er Pantoprazole Sodium 40 mg 07/05/24 16:00 07/08/24 08:12 Pantoprazole Sodium Iv 40 Mg Vial IV PUSH 40 mg QAM EMILE Administration Phenol 1 spray 07/02/24 12:12 07/07/24 06:41 Phenol/Sod Pheno [place] Mendez (*Bkc) MUCOUS MEM 1 spray PRN PRN Administration Sore Throat Prochlorperazine Edisylate 10 mg 07/06/24 21:57 07/08/24 05:03 Prochlorperazine Edisylate 10 Mg/2 Ml Vial IV PUSH 10 mg Q6H PRN Administration Nausea And Vomiting Sodium Chloride 10 ml 07/07/24 14:09 Central Line Flush IV PUSH PRN PRN with TPN bag changes Sodium Chloride 20 ml 07/07/24 14:09 Central Line Flush IV PUSH PRN PRN after blood draws Sodium Chloride 10 ml 07/07/24 22:00 07/08/24 13:16 Central Line Flush IV PUSH 10 ml Q8HR EMILE Administration Thiamine HCl 100 mg 07/03/24 09:00 07/08/24 08:12 Thiamine Hcl 200 Mg/2 Ml Vial IV PUSH 100 mg DAILY EMILE Administration Radiology Results: ITS Impressions Small Bowel X-Ray 07/05/24 18:48 IMPRESSION: Delayed passage into the colon with reduction in caliber of the visualized small bowel, markedly distended on initial evaluation. Abdomen X-Ray 07/06/24 10:47 Impression: Probable small bowel obstruction with NG tube in place. There is oral contrast in large bowel. Abdomen/Pelvis CT 07/06/24 15:14 IMPRESSION: 1. Free intraperitoneal gas and small volume of ascites, consistent with bowel perforation. I called this result to Meg Francisco. 2. Small bowel obstruction. 3. Normal pancreas. Chest X-Ray 07/07/24 14:34 IMPRESSION: 1. Stable airspace opacities in the lower lung zones, consistent with atelectasis versus pneumonia. Labs Labs: Laboratory Results - last 24 hr 07/07/24 07/07/24 07/08/24 18:07 20:03 05:20 WBC 8.4 RBC 3.90 L Hgb 12.1 L Hct 37.7 L MCV 96.7 MCH 31.0 MCHC 32.1 RDW 12.9 Plt Count 228 MPV 10.6 H Sodium 138 Potassium 4.3 Chloride 106 Carbon Dioxide 30 Anion Gap 2 L BUN 16 Creatinine 0.70 Estim Creat Clear Calc 149 Estimated GFR > 60 Glucose 407 H POC Capillary Glucose 106 H 109 H Calcium 8.2 L Phosphorus 3.6 Magnesium 2.1 Triglycerides 142 Lipase 1435 H 07/08/24 07/08/24 06:07 11:58 WBC RBC Hgb Hct MCV MCH MCHC RDW Plt Count MPV Sodium Potassium Chloride Carbon Dioxide Anion Gap BUN Creatinine Estim Creat Clear Calc Estimated GFR Glucose POC Capillary Glucose 95 85 Calcium Phosphorus Magnesium Triglycerides Lipase Quality VTE Prophylaxis VTE prophylaxis: mechanical ordered Hospitalist [facility] Advance Care Plan I have confirmed that the patient's Advanced Care Plan is present, code status is documented, or surrogate decision maker is listed in patient medical record.: Yes Medication Reconciliation I have utilized all available resources to obtain, update and review the patients current medications (includes all prescriptions, OTC, herbals, cannabis, and nutritional supplements).: Yes
[2024-07-08 18:01] LABS: Glucose Point of Care 78 mg/dl (65-105)
[2024-07-08] MEDS: busPIRone HCL 10 MG TABLET BY MOUTH (20:35)
[2024-07-08] MEDS: AMITRIPTYLINE HCL 25 MG TABLET PO (20:35)
[2024-07-08] MEDS: busPIRone HCL 5 MG TABLET BY MOUTH (20:36)
[2024-07-08] MEDS: guaiFENesin 200 MG/10 ML UDC PO (21:31)
[2024-07-08 23:48] LABS: Glucose Point of Care 111 mg/dl (65-105)
[2024-07-09] MEDS: levoFLOXacin 750 MG/D5W 150 ML 750 MG/150 ML BAG 100 MG IVPB (01:29)
[2024-07-09] MEDS: MORPHINE SULFATE PCA (*CRX) 30 MG/30 ML SYR IV CONT ×2 (01:32→14:50)
[2024-07-09] MEDS: KCL 40 MEQ/0.9% SOD CHL 1,000 ML 50 ML IV CONT (03:43)
[2024-07-09 04:00] VITALS: BP 121/81; PULSE 82; RESP 20; TEMP 36.4; O2SAT 93
[2024-07-09 05:34] LABS: Glucose Point of Care 92 mg/dl (65-105)
[2024-07-09] MEDS: AMINO ACIDS 5%/D15W/E-LYTES/CA 1,000 ML with MULTIVITAMINS-12 INJ VIAL 1 1.25 ML, MULTI... 80 ML IV CONT ×2 (05:36→20:44)
[2024-07-09] MEDS: metroNIDAZOLE 500 MG/ISO 100ML 500 MG/100 ML BAG 100 MG IVPB ×3 (06:00→20:53)
[2024-07-09] MEDS: CENTRAL LINE FLUSH 10 ML IV PUSH ×3 (06:01→21:06)
[2024-07-09 06:25] LABS: Hematocrit 37.5 % (42.0-52.0); Hemoglobin 12.3 g/dL (14.0-18.0); Mean Corpuscular HGB Conc 32.8 g/dl (32-36); Mean Corpuscular Hemoglobin 30.9 pg (26-34); Mean Corpuscular Volume 94.2 fl (80-100); Mean Platelet Volume 10.7 fl (7.4-10.4); Platelet Count Result 259 k/mm3 (150-375); Red Blood Count 3.98 M/mm3 (4.6-6.20); Red Cell Distribution Width 12.3 % (11.5-14.5); White Blood Count 9.4 K/mm3 (4.5-10.0)
[2024-07-09] MEDS: IBUPROFEN IV 800 MG/200 ML 800 MG/200 ML BAG 400 MG IVPB ×4 (06:29→23:00)
[2024-07-09 06:37] LABS: Alanine Aminotransferase 13 U/L (6-50); Albumin Level 2.7 g/dL (3.5-5.1); Alkaline Phosphatase 57 U/L (38-126); Anion Gap 4 mmol/L (4-12); Aspartate Amino Transferase 28 U/L (17-59); Bilirubin,Total 0.4 mg/dL (0.2-1.3); Blood Urea Nitrogen 15 mg/dL (9-20); Calcium 8.2 mg/dL (8.4-10.2); Carbon Dioxide 34 mmol/L (22-30); Chloride 103 mmol/L (98-107); Estimated CRCL calculation 171 ml/min; Estimated Glomerular Filt Rate > 60; Glucose 90 mg/dL (65-110); Lipase 1436 U/L (23-300); Magnesium 1.9 mg/dL (1.6-2.3); Phosphorus 3.4 mg/dL (2.5-4.5); Potassium 3.2 mmol/L (3.4-5.0); Sodium 141 mmol/L (137-145)
[2024-07-09 08:00] VITALS: BP 129/82; PULSE 96; RESP 17; TEMP 35.7; O2SAT 95
--- NOTE | 2024-07-09 08:51 | PM.IMPN ---
Progress Note: A&P Assessment and Plan (1) Sepsis: Code(s): A41.9 - Sepsis, unspecified organism Status: Acute Assessment and Plan: Patient presents with abdominal pain and met SIRS criteria on admission with tachycardic, tachypnea, leukocytosis. UCx negative. BCx NGTD. CXR clear. CT A/P showing no acute infectious process. Infectious etiology unlikely. SIRS possibly from dehydration, SBO and/or alcohol withdrawal. Abx stopped Continue to monitor closely off abx. 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 He has a hx of SBO since with 2 small bowel resections for adhesions but no episodes for about 6 yrs. He did have a left inguinal surgery repair about [address] abd/pelvis 07/02 shows marked distention of stomach and proximal small bowel loops, with transition point in the anterior mid abdomen just deep to the umbilicus. Findings are compatible with high-grade small bowel obstruction. Distal small bowel and large bowel are relatively decompressed. GenSurg consulted. Current hospitalization,he presented with the severe small-bowel obstruction and dehydration with TYLER. Nasogastric tube and fluid resuscitation as well as analgesics were administered. He improved significantly and had a water-soluble small bowel follow-through . This showed the contrast went through to the colon but it was very prolonged. Patient had had 2 or 3 bowel movements and was wanting to at least try clear liquids. He started clear liquids and it was noted he had a serum lipase of over 7000. On 07/[address] scan was performed. It showed that there was a bowel perforation. He is taken to surgery emergently for bowel perforation in the setting of small-bowel obstruction. Currently patient is on postop day 2,Status post small bowel resection x2 and extensive adhesiolysis. (3) Acute kidney injury: Code(s): N17.9 - Acute kidney failure, unspecified Status: Acute Assessment and Plan: Cr 5.8 with BUN 38. No prior labs to compare but no hx of CKD. With IV fluids, BUN/Cr normalized. CT A/P showing normal appearing kidneys and bladder [place] TYLER related to dehydration Monitor renal function, electrolytes and UOP. Avoid nephrotoxins. (4) Alcohol withdrawal delirium: Code(s): F10.931 - Alcohol use, unspecified with withdrawal delirium Status: Acute Assessment and Plan: Patient with evidence of severe withdrawals on admission. CIWA protocol started. Patient became much improved. Restraints and sitter were discontinued. CIWA scose down to 0-2 range Educated about the benefits of abstaining from alcohol Family in the room mention patient was talking about fentanyl. Patient denies taking fentanyl prior to admission. No UDS was performed. Plan DVT prophylaxis - SCDs Code status - full Subjective Date/time seen: 07/09/24 08:51 Interval history: His NG tube has been removed. Patient passing flatulence. Replaced potassium 60 mEq. Review of Systems Review of Systems: All other systems reviewed and negative except as noted in the history above. All systems reviewed & are unremarkable except as noted in HPI and below ROS unobtainable: Yes unobtainable due to mental status Exam Narrative: Patient is comfortable, NAD HEENT: eyes are clear and none icteric, NG tube in place LUNGS:CTA HEART: RR S1S2 ABD: BS+ faint and diffusely tender Lower extremities: no edema SKIN: nonjaundiced Neuro: grossly intact. Objective Data Vital Signs Vital Signs: Vital Signs - 24 hr 07/08/24 12:00 07/08/24 16:16 07/08/24 16:16 Temperature 97.1 F L Pulse Rate 96 Respiratory Rate 20 12 12 Blood Pressure 131/85 Pulse Oximetry 97 Oxygen Delivery 07/08/24 16:00 07/08/24 19:31 07/08/24 23:51 Temperature 97.6 F 98.0 F 97.6 F Pulse Rate 100 115 H 101 H Respiratory Rate 20 18 14 Blood Pressure 151/97 H 159/104 H 140/92 H Pulse Oximetry 94 96 92 Oxygen Delivery 07/08/24 20:00 07/09/24 04:00 07/09/24 08:00 Temperature 97.5 F L 96.3 F L Pulse Rate 82 96 Respiratory Rate 20 17 Blood Pressure 121/81 129/82 Pulse Oximetry 93 95 Oxygen Delivery Room Air Intake/Output Intake/Output: Intake & Output 07/06/24 07/07/24 07/08/24 07/09/24 23:59 23:59 23:59 23:59 Intake Total 1775 1810 4163.2 3085.1 Output Total 760 2150 2550 500 Balance 1015 -340 1613.2 2585.1 Meds/Results Medications: Active Medications Generic Name Dose Route Start Last Admin Trade Name Freq PRN Reason Stop Dose Admin Amitriptyline HCl 25 mg 07/06/24 21:00 07/08/24 20:35 Amitriptyline Hcl 25 Mg Tablet PO 25 mg HS EMILE Administration Bupropion HCl 300 mg 07/06/24 10:10 07/08/24 08:03 Bupropion Hcl Xl (24 Hr) 150 Mg Tabcr PO Not Given DAILY EMILE Buspirone HCl 5 mg 07/07/24 21:00 07/08/24 20:36 Buspirone Hcl 5 Mg Tablet BY MOUTH 5 mg HS EMILE Administration Buspirone HCl 30 mg 07/06/24 10:25 07/08/24 08:04 Buspirone Hcl 10 Mg Tablet PO Not Given DAILY EMILE Buspirone HCl 10 mg 07/06/24 21:00 07/08/24 20:35 Buspirone Hcl 10 Mg Tablet BY MOUTH 10 mg HS EMILE Administration Dextrose 12.5 gm 07/02/24 14:18 Dextrose 50% 25 Gm/50 Ml Syringe IV PUSH PRN PRN Hypoglycemia Protocol Enoxaparin Sodium 40 mg 07/06/24 09:00 07/08/24 08:12 Enoxaparin 40 Mg/0.4 Ml Syringe SUB-Q 40 mg DAILY EMILE Administration Fluticasone Propionate 2 spray 07/06/24 10:10 07/08/24 08:04 Fluticasone Propionate 0.05% Na Spr 16 Gm Btl (*Bkc) NASAL Not Given DAILY EMILE Folic Acid 1 mg 07/03/24 09:00 07/08/24 08:30 Folic Acid 1 Mg/0.2 Ml Inj IV PUSH 1 mg QAM EMILE Administration Glucagon 1 mg 07/02/24 14:18 Glucagon For Inj 1 Mg Vial IM PRN PRN Hypoglycemia Protocol Guaifenesin 200 mg 07/08/24 21:21 07/08/24 21:31 Guaifenesin 200 Mg/10 Ml Udc PO 200 mg Q4H PRN Administration Cough Dextrose 1,000 mls @ 100 mls/hr 07/02/24 14:18 Dextrose 5% 1,000 Ml IVPB PRN PRN Hypoglycemia Protocol Ibuprofen 800 mg in 200 mls @ 400 mls/hr 07/07/24 00:00 07/09/24 06:29 Caldolor 800 Mg/200 Ml IVPB 400 mls/hr Q6H EMILE Administration Metronidazole 500 mg in 100 mls @ 100 mls/hr 07/06/24 22:00 07/09/24 06:00 Flagyl 500 Mg/Iso Soln 100 Ml IVPB 100 mls/hr Q8H EMILE Administration Morphine Sulfate 30 mg in 30 mls @ 1 mls/hr 07/06/24 21:57 07/09/24 01:32 Morphine Sulfate Storage Consultant IV CONT 1 mg/hr PRN PRN 1 mls/hr APARTMENT LEASING CONSULTANT Management Administration Protocol 1 MG/HR Levofloxacin/Dextrose 750 mg in 150 mls @ 100 mls/hr 07/08/24 02:00 07/09/24 02:59 Levaquin 750 Mg/D5w 150 Ml IVPB Infused Q24H EMILE Infusion Potassium Chloride/Sodium Chloride 1,000 mls @ 50 mls/hr 07/07/24 16:00 07/09/24 03:43 Kcl 40 Meq/Ns IV CONT 50 mls/hr .Q20H EMILE Administration Dextrose 1,000 mls @ 50 mls/hr 07/07/24 10:08 Dextrose 10% IV CONT .Q20H PRN if PN is interrupted Multivitamins 1.25 ml/ 1,002.5 mls @ 80 mls/hr 07/07/24 14:00 07/09/24 05:36 Multivitamins 1.25 ml/ Amino IV CONT 80 mls/hr Acids/Electrolytes/Dextrose .[id number] EMILE Administration Protocol Fat Emulsion Intravenous 250 mls @ 20.833 mls/hr 07/07/24 14:00 07/09/24 03:00 Lipids 20% IVPB Infused Q24H EMILE Infusion Insulin Aspart 2 - 5 units 07/02/24 18:00 07/09/24 06:18 Insulin Aspart (*Bkc) 100 Units/Ml SUB-Q Not Given Q6HR EMILE Protocol Lorazepam 1 mg 07/05/24 15:49 07/08/24 14:52 Lorazepam Inj (*Crx) 2 Mg/Ml Vial IV PUSH 1 mg Q6H PRN Administration Anxiety Naloxone HCl 0.1 mg 07/07/24 09:20 Naloxone Hcl 0.4 Mg/Ml Vial IV PUSH Q5MIN PRN Opioid Reversal Non Formulary 1 each 07/07/24 09:00 07/08/24 08:04 Desvenlafaxine PO 08/06/24 08:59 Not Given Succinate 25 Mg Tab DAILY EMILE Er Pantoprazole Sodium 40 mg 07/05/24 16:00 07/08/24 08:12 Pantoprazole Sodium Iv 40 Mg Vial IV PUSH 40 mg QAM EMILE Administration Phenol 1 spray 07/02/24 12:12 07/07/24 06:41 Phenol/Sod Pheno [place] Mendez (*Bk) MUCOUS MEM 1 spray PRN PRN Administration Sore Throat Prochlorperazine Edisylate 10 mg 07/06/24 21:57 07/08/24 05:03 Prochlorperazine Edisylate 10 Mg/2 Ml Vial IV PUSH 10 mg Q6H PRN Administration Nausea And Vomiting Sodium Chloride 10 ml 07/07/24 14:09 Central Line Flush IV PUSH PRN PRN with TPN bag changes Sodium Chloride 20 ml 07/07/24 14:09 Central Line Flush IV PUSH PRN PRN after blood draws Sodium Chloride 10 ml 07/07/24 22:00 07/09/24 06:01 Central Line Flush IV PUSH 10 ml Q8HR EMILE Administration Thiamine HCl 100 mg 07/03/24 09:00 07/08/24 08:12 Thiamine Hcl 200 Mg/2 Ml Vial IV PUSH 100 mg DAILY EMILE Administration Radiology Results: ITS Impressions Small Bowel X-Ray 07/05/24 18:48 IMPRESSION: Delayed passage into the colon with reduction in caliber of the visualized small bowel, markedly distended on initial evaluation. Abdomen X-Ray 07/06/24 10:47 Impression: Probable small bowel obstruction with NG tube in place. There is oral contrast in large bowel. Abdomen/Pelvis CT 07/06/24 15:14 IMPRESSION: 1. Free intraperitoneal gas and small volume of ascites, consistent with bowel perforation. I called this result to Meg Francisco. 2. Small bowel obstruction. 3. Normal pancreas. Chest X-Ray 07/07/24 14:34 IMPRESSION: 1. Stable airspace opacities in the lower lung zones, consistent with atelectasis versus pneumonia. Labs Labs: Laboratory Results - last 24 hr 07/08/24 07/08/24 07/08/24 11:58 17:59 23:39 WBC RBC Hgb Hct MCV MCH MCHC RDW Plt Count MPV Sodium Potassium Chloride Carbon Dioxide Anion Gap BUN Creatinine Estim Creat Clear Calc Estimated GFR Glucose POC Capillary Glucose 85 78 111 H Calcium Phosphorus Magnesium Total Bilirubin AST ALT Alkaline Phosphatase Total Protein Albumin Lipase 07/09/24 07/09/24 05:13 05:41 WBC 9.4 RBC 3.98 L Hgb 12.3 L Hct 37.5 L MCV 94.2 MCH 30.9 MCHC 32.8 RDW 12.3 Plt Count 259 MPV 10.7 H Sodium 141 Potassium 3.2 L Chloride 103 Carbon Dioxide 34 H Anion Gap 4 BUN 15 Creatinine 0.60 L Estim Creat Clear Calc 171 Estimated GFR > 60 Glucose 90 POC Capillary Glucose 92 Calcium 8.2 L Phosphorus 3.4 Magnesium 1.9 Total Bilirubin 0.4 AST 28 ALT 13 Alkaline Phosphatase 57 Total Protein 5.0 L Albumin 2.7 L Lipase 1436 H Quality VTE Prophylaxis VTE prophylaxis: mechanical ordered Hospitalist [facility] Advance Care Plan I have confirmed that the patient's Advanced Care Plan is present, code status is documented, or surrogate decision maker is listed in patient medical record.: Yes Medication Reconciliation I have utilized all available resources to obtain, update and review the patients current medications (includes all prescriptions, OTC, herbals, cannabis, and nutritional supplements).: Yes
[2024-07-09] MEDS: PANTOPRAZOLE SODIUM IV 40 MG VIAL IV PUSH (10:33)
[2024-07-09] MEDS: ENOXAPARIN 40 MG/0.4 ML SYRINGE SUB-Q (10:33)
[2024-07-09] MEDS: FOLIC ACID 1 MG/0.2 ML INJ IV PUSH (10:33)
[2024-07-09] MEDS: THIAMINE HCL 200 MG/2 ML VIAL 100 MG IV PUSH (10:33)
[2024-07-09] MEDS: DEXTROSE IV CONT ×2 (11:30→23:30)
[2024-07-09] MEDS: POTASSIUM CHLORIDE IV CONT ×2 (11:30→23:30)
[2024-07-09] MEDS: SOD CHL IV CONT ×2 (11:30→23:30)
[2024-07-09 11:32] LABS: Glucose Point of Care 89 mg/dl (65-105)
[2024-07-09 12:00] VITALS: BP 146/93; PULSE 94; RESP 18; TEMP 36.4; O2SAT 97
--- NOTE | 2024-07-09 12:57 | PM.PNGS ---
Progress Note: A&P Assessment and Plan (1) Obstruction of small intestine due to peritoneal adhesion: Code(s): K56.50 - Intestinal adhesions [bands], unspecified as to partial versus complete obstruction Status: Acute Assessment and Plan: Remove NG and start clear liquids Still using HOT[employer] SALES REPRESENTATIVE, consider transitioning to oral/IV push pain meds over next day or so Continue TPN at 80 mL/hr (2) Small bowel perforation: Code(s): K63.1 - Perforation of intestine (nontraumatic) Status: Acute Assessment and Plan: Continue Levaquin and Flagyl Subjective Subjective Date/Time Seen: 07/09/24 12:57 Interval history: Ambulating in halls. Passing flatus. No BM yet. Pain controlled with HOT[employer] SALES REPRESENTATIVE. Exam GI: Inspection: non-distended and incision (intact with sandor) GI Palp: Yes Soft to palpation, Yes Tenderness to palpation present (GI) (incisional) and No Guarding due to palpation present (GI) Auscultation: normal bowel sounds Other: Mild pink tinge around incision, no purulent drainage. Objective Data Vital Signs Vital Signs: Vital Signs - 24 hr 07/08/24 16:16 07/08/24 16:16 07/08/24 16:00 Temperature 97.6 F Pulse Rate 100 Respiratory Rate 12 12 20 Blood Pressure 151/97 H Pulse Oximetry 94 Oxygen Delivery 07/08/24 19:31 07/08/24 23:51 07/08/24 20:00 Temperature 98.0 F 97.6 F Pulse Rate 115 H 101 H Respiratory Rate 18 14 Blood Pressure 159/104 H 140/92 H Pulse Oximetry 96 92 Oxygen Delivery Room Air 07/09/24 04:00 07/09/24 08:00 07/09/24 12:00 Temperature 97.5 F L 96.3 F L 97.6 F Pulse Rate 82 96 94 Respiratory Rate 20 17 18 Blood Pressure 121/81 129/82 146/93 H Pulse Oximetry 93 95 97 Oxygen Delivery Intake/Output Intake/Output: Intake & Output 07/06/24 07/07/24 07/08/24 07/09/24 23:59 23:59 23:59 23:59 Intake Total 1775 1810 4163.2 3784.3 Output Total 760 2150 2550 900 Balance 1015 -340 1613.2 2884.3 Meds/Results Medications: Active Medications Generic Name Dose Route Start Last Admin Trade Name Freq PRN Reason Stop Dose Admin Amitriptyline HCl 25 mg 07/06/24 21:00 07/08/24 20:35 Amitriptyline Hcl 25 Mg Tablet PO 25 mg HS EMILE Administration Bupropion HCl 300 mg 07/06/24 10:10 07/09/24 09:31 Bupropion Hcl Xl (24 Hr) 150 Mg Tabcr PO Not Given DAILY EMILE Buspirone HCl 5 mg 07/07/24 21:00 07/08/24 20:36 Buspirone Hcl 5 Mg Tablet BY MOUTH 5 mg HS EMILE Administration Buspirone HCl 30 mg 07/06/24 10:25 07/09/24 09:31 Buspirone Hcl 10 Mg Tablet PO Not Given DAILY EMILE Buspirone HCl 10 mg 07/06/24 21:00 07/08/24 20:35 Buspirone Hcl 10 Mg Tablet BY MOUTH 10 mg HS EMILE Administration Dextrose 12.5 gm 07/02/24 14:18 Dextrose 50% 25 Gm/50 Ml Syringe IV PUSH PRN PRN Hypoglycemia Protocol Enoxaparin Sodium 40 mg 07/06/24 09:00 07/09/24 10:33 Enoxaparin 40 Mg/0.4 Ml Syringe SUB-Q 40 mg DAILY EMILE Administration Fluticasone Propionate 2 spray 07/06/24 10:10 07/09/24 09:32 Fluticasone Propionate 0.05% Na Spr 16 Gm Btl (*Bkc) NASAL Not Given DAILY EMILE Folic Acid 1 mg 07/03/24 09:00 07/09/24 10:33 Folic Acid 1 Mg/0.2 Ml Inj IV PUSH 1 mg QAM EMILE Administration Glucagon 1 mg 07/02/24 14:18 Glucagon For Inj 1 Mg Vial IM PRN PRN Hypoglycemia Protocol Guaifenesin 200 mg 07/08/24 21:21 07/08/24 21:31 Guaifenesin 200 Mg/10 Ml Udc PO 200 mg Q4H PRN Administration Cough Dextrose 1,000 mls @ 100 mls/hr 07/02/24 14:18 Dextrose 5% 1,000 Ml IVPB PRN PRN Hypoglycemia Protocol Ibuprofen 800 mg in 200 mls @ 400 mls/hr 07/07/24 00:00 07/09/24 06:59 Caldolor 800 Mg/200 Ml IVPB Infused Q6H EMILE Infusion Metronidazole 500 mg in 100 mls @ 100 mls/hr 07/06/24 22:00 07/09/24 07:00 Flagyl 500 Mg/Iso Soln 100 Ml IVPB Infused Q8H EMILE Infusion Morphine Sulfate 30 mg in 30 mls @ 1 mls/hr 07/06/24 21:57 07/09/24 01:32 Morphine Sulfate [employer] IV CONT 1 mg/hr PRN PRN 1 mls/hr [employer] SALES REPRESENTATIVE Management Administration Protocol 1 MG/HR Levofloxacin/Dextrose 750 mg in 150 mls @ 100 mls/hr 07/08/24 02:00 07/09/24 02:59 Levaquin 750 Mg/D5w 150 Ml IVPB Infused Q24H EMILE Infusion Dextrose 1,000 mls @ 50 mls/hr 07/07/24 10:08 Dextrose 10% IV CONT .Q20H PRN if PN is interrupted Multivitamins 1.25 ml/ 1,002.5 mls @ 80 mls/hr 07/07/24 14:00 07/09/24 05:36 Multivitamins 1.25 ml/ Amino IV CONT 80 mls/hr Acids/Electrolytes/Dextrose .[id number] EMILE Administration Protocol Fat Emulsion Intravenous 250 mls @ 20.833 mls/hr 07/07/24 14:00 07/09/24 03:00 Lipids 20% IVPB Infused Q24H EMILE Infusion Potassium Chloride 60 meq/ 1,030 mls @ 100 mls/hr 07/09/24 10:00 07/09/24 11:30 Dextrose/Sodium Chloride IV CONT 100 mls/hr .[id number] EMILE Administration Insulin Aspart 2 - 5 units 07/02/24 18:00 07/09/24 06:18 Insulin Aspart (*Bkc) 100 Units/Ml SUB-Q Not Given Q6HR [facility] Protocol Lorazepam 1 mg 07/05/24 15:49 07/08/24 14:52 Lorazepam Inj (*Crx) 2 Mg/Ml Vial IV PUSH 1 mg Q6H PRN Administration Anxiety Naloxone HCl 0.1 mg 07/07/24 09:20 Naloxone Hcl 0.4 Mg/Ml Vial IV PUSH Q5MIN PRN Opioid Reversal Non Formulary 1 each 07/07/24 09:00 07/09/24 09:32 Desvenlafaxine PO 08/06/24 08:59 Not Given Succinate 25 Mg Tab DAILY EMILE Er Pantoprazole Sodium 40 mg 07/05/24 16:00 07/09/24 10:33 Pantoprazole Sodium Iv 40 Mg Vial IV PUSH 40 mg QAM MEILE Administration Phenol 1 spray 07/02/24 12:12 07/07/24 06:41 Phenol/Sod Pheno [place] Mendez (*Bkc) MUCOUS MEM 1 spray PRN PRN Administration Sore Throat Prochlorperazine Edisylate 10 mg 07/06/24 21:57 07/08/24 05:03 Prochlorperazine Edisylate 10 Mg/2 Ml Vial IV PUSH 10 mg Q6H PRN Administration Nausea And Vomiting Sodium Chloride 10 ml 07/07/24 14:09 Central Line Flush IV PUSH PRN PRN with TPN bag changes Sodium Chloride 20 ml 07/07/24 14:09 Central Line Flush IV PUSH PRN PRN after blood draws Sodium Chloride 10 ml 07/07/24 22:00 07/09/24 06:01 Central Line Flush IV PUSH 10 ml Q8HR EMILE Administration Thiamine HCl 100 mg 07/03/24 09:00 07/09/24 10:33 Thiamine Hcl 200 Mg/2 Ml Vial IV PUSH 100 mg DAILY EMILE Administration Radiology Results: ITS Impressions Small Bowel X-Ray 07/05/24 18:48 IMPRESSION: Delayed passage into the colon with reduction in caliber of the visualized small bowel, markedly distended on initial evaluation. Abdomen X-Ray 07/06/24 10:47 Impression: Probable small bowel obstruction with NG tube in place. There is oral contrast in large bowel. Abdomen/Pelvis CT 07/06/24 15:14 IMPRESSION: 1. Free intraperitoneal gas and small volume of ascites, consistent with bowel perforation. I called this result to Meg Francisco. 2. Small bowel obstruction. 3. Normal pancreas. Chest X-Ray 07/07/24 14:34 IMPRESSION: 1. Stable airspace opacities in the lower lung zones, consistent with atelectasis versus pneumonia. Labs Labs: Laboratory Results - last 24 hr 07/08/24 07/08/24 07/09/24 17:59 23:39 05:13 WBC RBC Hgb Hct MCV MCH MCHC RDW Plt Count MPV Sodium Potassium Chloride Carbon Dioxide Anion Gap BUN Creatinine Estim Creat Clear Calc Estimated GFR Glucose POC Capillary Glucose 78 111 H 92 Calcium Phosphorus Magnesium Total Bilirubin AST ALT Alkaline Phosphatase Total Protein Albumin Lipase 07/09/24 07/09/24 05:41 11:25 WBC 9.4 RBC 3.98 L Hgb 12.3 L Hct 37.5 L MCV 94.2 MCH 30.9 MCHC 32.8 RDW 12.3 Plt Count 259 MPV 10.7 H Sodium 141 Potassium 3.2 L Chloride 103 Carbon Dioxide 34 H Anion Gap 4 BUN 15 Creatinine 0.60 L Estim Creat Clear Calc 171 Estimated GFR > 60 Glucose 90 POC Capillary Glucose 89 Calcium 8.2 L Phosphorus 3.4 Magnesium 1.9 Total Bilirubin 0.4 AST 28 ALT 13 Alkaline Phosphatase 57 Total Protein 5.0 L Albumin 2.7 L Lipase 1436 H
[2024-07-09] MEDS: FAT EMULSIONS IV 20% 250 ML 20.83 ML IVPB (13:36)
[2024-07-09 16:00] VITALS: BP 149/89; PULSE 115; RESP 18; TEMP 35.6; O2SAT 91
[2024-07-09 17:35] LABS: Glucose Point of Care 118 mg/dl (65-105)
[2024-07-09] MEDS: PROCHLORPERAZINE EDISYLATE 10 MG/2 ML VIAL IV PUSH (18:15)
[2024-07-09 20:00] VITALS: BP 136/84; PULSE 110; RESP 14; TEMP 36.3; O2SAT 90
[2024-07-09] MEDS: AMITRIPTYLINE HCL 25 MG TABLET PO (20:52)
[2024-07-09] MEDS: busPIRone HCL 10 MG TABLET BY MOUTH (20:52)
[2024-07-09] MEDS: busPIRone HCL 5 MG TABLET BY MOUTH (20:52)
[2024-07-09 23:54] LABS: Glucose Point of Care 109 mg/dl (65-105)
[2024-07-10] VITALS (7 sets, daily range): BP systolic 130–145; BP diastolic 64–96; PULSE 88–97; RESP 16–20; TEMP 36.3–37.6; O2SAT 84–95
--- NOTE | 2024-07-10 | PC.NURSE ---
Rosalio reported to this nurse that SpO2 84% on RA and patient very diaphoretic. Patient has been on a morphine DRYWALL SPRAYER for several days with 1 mg cont basal rate. Spoke with Dr. Schneider at this time to relay pt status. New order received to give patient narcan now and hold Morphine DRYWALL SPRAYER for 4 hours to see if patient improves.
[2024-07-10] MEDS: NALOXONE HCL 0.4 MG/ML VIAL 0.1 MG IV PUSH (00:02)
[2024-07-10] MEDS: PROCHLORPERAZINE EDISYLATE 10 MG/2 ML VIAL IV PUSH ×4 (01:00→21:05)
[2024-07-10] MEDS: levoFLOXacin 750 MG/D5W 150 ML 750 MG/150 ML BAG 100 MG IVPB (02:30)
[2024-07-10 04:34] LABS: Glucose Point of Care 126 mg/dl (65-105)
[2024-07-10] MEDS: IBUPROFEN IV 800 MG/200 ML 800 MG/200 ML BAG 400 MG IVPB (05:00)
[2024-07-10 05:09] LABS: Basophils Absolute Auto 0.1 K/mm3 (0.0-0.1); Basophils Percent Auto 0.9 % (0.2-1.2); Eosinophils Absolute Auto 0.3 K/mm3 (0-0.3); Eosinophils Percent Auto 2.5 % (0-4.4); Hematocrit 38.7 % (42.0-52.0); Hemoglobin 13.1 g/dL (14.0-18.0); Immature Granulocyte Absolute 0.86 K/mm3 (0.00-0.031); Immature Granulocyte Percent A 7.3 % (0-0.5); Lymphocytes Absolute Auto 1.13 K/mm3 (0.9-3.2); Lymphocytes Percent Auto 9.6 % (18.3-44.2); Mean Corpuscular HGB Conc 33.9 g/dl (32-36); Mean Corpuscular Hemoglobin 31.6 pg (26-34); Mean Corpuscular Volume 93.3 fl (80-100); Mean Platelet Volume 10.5 fl (7.4-10.4); Monocytes Absolute Auto 0.8 K/mm3 (0.1-0.6); Monocytes Percent Auto 6.9 % (2.6-8.5); Neutrophils Absolute Auto 8.6 K/mm3 (1.3-6.7); Neutrophils Percent Auto 72.8 % (45.5-73.1); Platelet Count Result 288 k/mm3 (150-375); Red Blood Count 4.15 M/mm3 (4.6-6.20); Red Cell Distribution Width 12.3 % (11.5-14.5); White Blood Count 11.8 K/mm3 (4.5-10.0)
[2024-07-10 05:21] LABS: Alanine Aminotransferase 15 U/L (6-50); Albumin Level 2.9 g/dL (3.5-5.1); Alkaline Phosphatase 54 U/L (38-126); Anion Gap 5 mmol/L (4-12); Aspartate Amino Transferase 27 U/L (17-59); Bilirubin,Total 0.4 mg/dL (0.2-1.3); Blood Urea Nitrogen 13 mg/dL (9-20); Calcium 8.4 mg/dL (8.4-10.2); Carbon Dioxide 32 mmol/L (22-30); Chloride 100 mmol/L (98-107); Estimated CRCL calculation 171 ml/min; Estimated Glomerular Filt Rate > 60; Glucose 113 mg/dL (65-110); Lipase 1631 U/L (23-300); Magnesium 1.9 mg/dL (1.6-2.3); Phosphorus 4.1 mg/dL (2.5-4.5); Potassium 3.4 mmol/L (3.4-5.0); Sodium 137 mmol/L (137-145); Triglycerides 95 mg/dL (<150)
[2024-07-10 05:24] LABS: INR 1.1; Prothrombin Time 15.1 Seconds (11.1-14.7)
[2024-07-10 05:28] LABS: Transferrin 132 mg/dL (206-381)
[2024-07-10] MEDS: metroNIDAZOLE 500 MG/ISO 100ML 500 MG/100 ML BAG 100 MG IVPB ×3 (05:30→21:07)
[2024-07-10] MEDS: CENTRAL LINE FLUSH 10 ML IV PUSH ×3 (05:42→21:09)
[2024-07-10] MEDS: buPROPion HCL XL (24 HR) 150 MG TABCR 300 MG PO (07:43)
[2024-07-10] MEDS: busPIRone HCL 10 MG TABLET 30 MG PO (07:43)
[2024-07-10] MEDS: ENOXAPARIN 40 MG/0.4 ML SYRINGE SUB-Q (07:47)
[2024-07-10] MEDS: PANTOPRAZOLE SODIUM IV 40 MG VIAL IV PUSH (07:47)
[2024-07-10] MEDS: THIAMINE HCL 200 MG/2 ML VIAL 100 MG IV PUSH (07:47)
[2024-07-10] MEDS: FLUTICASONE PROPIONATE 0.05% NA SPR 16 GM BTL (*BKC) 2 SPRAY NASAL (07:48)
[2024-07-10] MEDS: FOLIC ACID 1 MG/0.2 ML INJ IV PUSH (07:48)
--- NOTE | 2024-07-10 10:22 | P.PNGS_ITS ---
Progress Note: A&P Assessment and Plan (1) Obstruction of small intestine due to peritoneal adhesion: Code(s): K56.50 - Intestinal adhesions [bands], unspecified as to partial versus complete obstruction Status: Acute Assessment and Plan: * Patient made NPO this morning. CT scan abdomen/pelvis ordered due to postoperative leukocytosis with left shift on labs this am. CT findings of bilateral pneumonia, small pleural effusions, wall thickening of small bowel, ileus, and expected postoperative changes. No evidence of a fluid collection or abscess. * There is erythema around the upper half of the incision above the umbilicus. Will evaluate with Dr. Mccann later today and possible remove some sandor. This could be contributing to his leukocytosis. * Will keep him NPO, continue TPN, and will get a KUB * SAND CONDITIONER MACHINE was held overnight due to hypoxia and decreased mentation. Will stop the SAND CONDITIONER MACHINE and order PRN analgesics. * Encouraged ambulating today (2) Small bowel perforation: Code(s): K63.1 - Perforation of intestine (nontraumatic) Status: Acute Assessment and Plan: * Continue Levaquin and Flagyl Plan I have discussed the patient's case and plan of care with Dr. Mccann. Subjective Subjective Date/Time Seen: 07/10/24 10:22 Post Op day: 4 (Adhesiolysis, small-bowel resection with anastomosis x2) Patient reports: flatus, bowel movement (few loose stools), nausea and afebrile Interval history: Nursing put the patient's SAND CONDITIONER MACHINE on hold last night around midnight. Per nursing, he was desaturating with low respirations and decreased mentation. They stopped his SAND CONDITIONER MACHINE and he was given Narcan x 1. He became more arousable and was able to be titrated off of O2. His SAND CONDITIONER MACHINE has been on hold since midnight and he is not complaining of any abdominal pain this morning. He reports passing more flatus and had a few loose stools this morning. No blood in his stool. He still has some nausea, but no vomiting. He feels like his nausea has been consistent since surgery. He has been afebrile but his WBC count did go up to 11.8 this morning. Exam Const: General: comfortable and no acute distress Orientation /consciousness: patient oriented x3 Resp: Effort & Inspection: normal respiratory effort Auscultation: clear to auscultation bilaterally Cardio: Rate: regular rate Rhythm: regular rhythm GI: Inspection: distended GI Palp: Yes Soft to palpation, No Tenderness to palpation present (GI), No Guarding due to palpation present (GI), Yes No hepatosplenomegaly present, No Hernia present and No Rebound tenderness present Auscultation: Hypoactive bowel sounds present (very hypoactive) Other: midline incision with sandor intact, no drainage, erythema around incision extending from umbilicus up to the top of the incision Extrem: General: no calf tenderness and no edema Objective Data Vital Signs Vital Signs: Vital Signs - 24 hr 07/09/24 12:00 07/09/24 16:00 07/09/24 20:00 Temperature 97.6 F 96.1 F L 97.4 F L Pulse Rate 94 115 H 110 H Respiratory Rate 18 18 14 Blood Pressure 146/93 H 149/89 H 136/84 Pulse Oximetry 97 91 90 Oxygen Delivery 07/10/24 00:05 07/09/24 20:00 07/10/24 00:00 Temperature 97.6 F Pulse Rate 90 Respiratory Rate 20 Blood Pressure 145/92 H Pulse Oximetry 84 L 84 L Oxygen Delivery Room Air 07/10/24 04:00 07/10/24 08:00 07/10/24 08:00 Temperature 97.8 F 97.4 F L Pulse Rate 92 88 Respiratory Rate 16 18 Blood Pressure 133/92 H 141/88 H Pulse Oximetry 92 93 Oxygen Delivery Room Air Intake/Output Intake/Output: Intake & Output 07/07/24 07/08/24 07/09/24 07/10/24 23:59 23:59 23:59 23:59 Intake Total 1810 4163.2 7146.8 1100 Output Total 2150 2550 900 Balance -340 1613.2 6246.8 1100 Meds/Results Medications: Active Medications Generic Name Dose Route Start Last Admin Trade Name Freq PRN Reason Stop Dose Admin Amitriptyline HCl 25 mg 07/06/24 21:00 07/09/24 20:52 Amitriptyline Hcl 25 Mg Tablet PO 25 mg HS EMILE Administration Bupropion HCl 300 mg 07/06/24 10:10 07/10/24 07:43 Bupropion Hcl Xl (24 Hr) 150 Mg Tabcr PO 300 mg DAILY EMILE Administration Buspirone HCl 5 mg 07/07/24 21:00 07/09/24 20:52 Buspirone Hcl 5 Mg Tablet BY MOUTH 5 mg HS EMILE Administration Buspirone HCl 30 mg 07/06/24 10:25 07/10/24 07:43 Buspirone Hcl 10 Mg Tablet PO 30 mg DAILY EMILE Administration Buspirone HCl 10 mg 07/06/24 21:00 07/09/24 20:52 Buspirone Hcl 10 Mg Tablet BY MOUTH 10 mg HS EMILE Administration Dextrose 12.5 gm 07/02/24 14:18 Dextrose 50% 25 Gm/50 Ml Syringe IV PUSH PRN PRN Hypoglycemia Protocol Enoxaparin Sodium 40 mg 07/06/24 09:00 07/10/24 07:47 Enoxaparin 40 Mg/0.4 Ml Syringe SUB-Q 40 mg DAILY EMILE Administration Fluticasone Propionate 2 spray 07/06/24 10:10 07/10/24 07:48 Fluticasone Propionate 0.05% Na Spr 16 Gm Btl (*Bkc) NASAL 2 spray DAILY EMILE Administration Folic Acid 1 mg 07/03/24 09:00 07/10/24 07:48 Folic Acid 1 Mg/0.2 Ml Inj IV PUSH 1 mg QAM EMILE Administration Glucagon 1 mg 07/02/24 14:18 Glucagon For Inj 1 Mg Vial IM PRN PRN Hypoglycemia Protocol Guaifenesin 200 mg 07/08/24 21:21 07/08/24 21:31 Guaifenesin 200 Mg/10 Ml Udc PO 200 mg Q4H PRN Administration Cough Dextrose 1,000 mls @ 100 mls/hr 07/02/24 14:18 Dextrose 5% 1,000 Ml IVPB PRN PRN Hypoglycemia Protocol Ibuprofen 800 mg in 200 mls @ 400 mls/hr 07/07/24 00:00 07/10/24 05:30 Caldolor 800 Mg/200 Ml IVPB Infused Q6H EMILE Infusion Metronidazole 500 mg in 100 mls @ 100 mls/hr 07/06/24 22:00 07/10/24 05:30 Flagyl 500 Mg/Iso Soln 100 Ml IVPB 100 mls/hr Q8H EMILE Administration Levofloxacin/Dextrose 750 mg in 150 mls @ 100 mls/hr 07/08/24 02:00 07/10/24 04:00 Levaquin 750 Mg/D5w 150 Ml IVPB Infused Q24H EMILE Infusion Dextrose 1,000 mls @ 50 mls/hr 07/07/24 10:08 Dextrose 10% IV CONT .Q20H PRN if PN is interrupted Multivitamins 1.25 ml/ 1,002.5 mls @ 80 mls/hr 07/07/24 14:00 07/09/24 20:44 Multivitamins 1.25 ml/ Amino IV CONT 80 mls/hr Acids/Electrolytes/Dextrose .[id number] [facility] Administration Protocol Fat Emulsion Intravenous 250 mls @ 20.833 mls/hr 07/07/24 14:00 07/10/24 02:30 Lipids 20% IVPB Infused Q24H [facility] Infusion Potassium Chloride 60 meq/ 1,030 mls @ 100 mls/hr 07/09/24 10:00 07/10/24 00:38 Dextrose/Sodium Chloride IV CONT Not Given .[id number] [facility] Insulin Aspart 2 - 5 units 07/02/24 18:00 07/10/24 05:16 Insulin Aspart (*Bkc) 100 Units/Ml SUB-Q Not Given Q6HR [facility] Protocol Lorazepam 1 mg 07/05/24 15:49 07/08/24 14:52 Lorazepam Inj (*Crx) 2 Mg/Ml Vial IV PUSH 1 mg Q6H PRN Administration Anxiety Morphine Sulfate 2 mg 07/10/24 10:20 Morphine Sulfate (*Crx) 2 Mg/Ml Inj IV PUSH Q2H PRN Pain Rated 4-6 Morphine Sulfate 4 mg 07/10/24 10:20 Morphine Sulfate (*Crx) 4 Mg/Ml Inj IV PUSH Q2H PRN Pain Rated 7-10 Naloxone HCl 0.1 mg 07/07/24 09:20 07/10/24 00:02 Naloxone Hcl 0.4 Mg/Ml Vial IV PUSH 0.1 mg Q5MIN PRN Administration Opioid Reversal Non Formulary 1 each 07/07/24 09:00 07/10/24 09:42 Desvenlafaxine PO 08/06/24 08:59 1 each Succinate 25 Mg Tab DAILY EMILE Administration Er Pantoprazole Sodium 40 mg 07/05/24 16:00 07/10/24 07:47 Pantoprazole Sodium Iv 40 Mg Vial IV PUSH 40 mg QAM EMILE Administration Phenol 1 spray 07/02/24 12:12 07/07/24 06:41 Phenol/Sod Pheno [place] Mendez (*Bkc) MUCOUS MEM 1 spray PRN PRN Administration Sore Throat Prochlorperazine Edisylate 10 mg 07/06/24 21:57 07/10/24 07:41 Prochlorperazine Edisylate 10 Mg/2 Ml Vial IV PUSH 10 mg Q6H PRN Administration Nausea And Vomiting Sodium Chloride 10 ml 07/07/24 14:09 Central Line Flush IV PUSH PRN PRN with TPN bag changes Sodium Chloride 20 ml 07/07/24 14:09 Central Line Flush IV PUSH PRN PRN after blood draws Sodium Chloride 10 ml 07/07/24 22:00 07/10/24 05:42 Central Line Flush IV PUSH 10 ml Q8HR EMILE Administration Thiamine HCl 100 mg 07/03/24 09:00 07/10/24 07:47 Thiamine Hcl 200 Mg/2 Ml Vial IV PUSH 100 mg DAILY EMILE Administration Radiology Results: ITS Impressions Small Bowel X-Ray 07/05/24 18:48 IMPRESSION: Delayed passage into the colon with reduction in caliber of the visualized small bowel, markedly distended on initial evaluation. Abdomen X-Ray 07/06/24 10:47 Impression: Probable small bowel obstruction with NG tube in place. There is oral contrast in large bowel. Chest X-Ray 07/07/24 14:34 IMPRESSION: 1. Stable airspace opacities in the lower lung zones, consistent with atelectasis versus pneumonia. Abdomen/Pelvis CT 07/10/24 08:46 IMPRESSION: 1. Bilateral pneumonia. 2. Small pleural effusions. 3. Dilated small bowel, likely adynamic ileus. 4. Wall thickening of small bowel, consistent with enteritis. Labs Labs: Laboratory Results - last 24 hr 07/09/24 07/09/24 07/09/24 11: 17:32 23:51 WBC RBC Hgb Hct MCV MCH MCHC RDW Plt Count MPV Immature Gran % (Auto) Neut % (Auto) Lymph % (Auto) Pike % (Auto) Eos % (Auto) Baso % (Auto) Lymph # (Auto) [place] # (Auto) Eos # (Auto) Baso # (Auto) Abs Immat Gran (auto) Absolute Neuts (auto) Absolute Nucleated RBC Nucleated RBC % PT INR APTT Sodium Potassium Chloride Carbon Dioxide Anion Gap BUN Creatinine Estim Creat Clear Calc Estimated GFR Glucose POC Capillary Glucose 89 118 H 109 H Calcium Phosphorus Magnesium Transferrin Total Bilirubin AST ALT Alkaline Phosphatase Total Protein Albumin Triglycerides Lipase 07/10/24 07/10/24 04:23 04:49 WBC 11.8 H RBC 4.15 L Hgb 13.1 L Hct 38.7 L MCV 93.3 MCH 31.6 MCHC 33.9 RDW 12.3 Plt Count 288 MPV 10.5 H Immature Gran % (Auto) 7.3 H Neut % (Auto) 72.8 Lymph % (Auto) 9.6 L Pike % (Auto) 6.9 Eos % (Auto) 2.5 Baso % (Auto) 0.9 Lymph # (Auto) 1.13 Pike # (Auto) 0.8 H Eos # (Auto) 0.3 Baso # (Auto) 0.1 Abs Immat Gran (auto) 0.86 H Absolute Neuts (auto) 8.6 H Absolute Nucleated RBC 0.000 Nucleated RBC % 0.0 PT 15.1 H INR 1.1 APTT 37.0 H Sodium 137 Potassium 3.4 Chloride 100 Carbon Dioxide 32 H Anion Gap 5 BUN 13 Creatinine 0.60 L Estim Creat Clear Calc 171 Estimated GFR > 60 Glucose 113 H POC Capillary Glucose 126 H Calcium 8.4 Phosphorus 4.1 Magnesium 1.9 Transferrin 132 L Total Bilirubin 0.4 AST 27 ALT 15 Alkaline Phosphatase 54 Total Protein 6.0 L Albumin 2.9 L Triglycerides 95 Lipase 1631 H
[2024-07-10 11:34] LABS: Glucose Point of Care 106 mg/dl (65-105)
[2024-07-10] MEDS: AMINO ACIDS 5%/D15W/E-LYTES/CA 1,000 ML with MULTIVITAMINS-12 INJ VIAL 1 1.25 ML, MULTI... 80 ML IV CONT (11:48)
[2024-07-10] MEDS: IBUPROFEN IV 800 MG/200 ML 800 MG/200 ML BAG 200 MG IVPB (11:49)
--- NOTE | 2024-07-10 12:20 | P.PNIM_ITS ---
Progress Note: A&P Assessment and Plan (1) Sepsis: Code(s): A41.9 - Sepsis, unspecified organism Status: Acute Assessment and Plan: Patient presents with abdominal pain and met SIRS criteria on admission with t achycardic, tachypnea, leukocytosis. UCx negative. BCx NGTD. CXR clear. CT A/P showing no acute infectious process. Infectious etiology unlikely. SIRS possibly from dehydration, SBO and/or alcohol withdrawal. Abx stopped Continue to monitor closely off abx. 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 He has a hx of SBO since with 2 small bowel resections for adhesions but no episodes for about 6 yrs. He did have a left inguinal surgery repair about [address] abd/pelvis 07/02 shows marked distention of stomach and proximal small bowel loops, with transition point in the anterior mid abdomen just deep to the umbilicus. Findings are compatible with high-grade small bowel obstruction. Distal small bowel and large bowel are relatively decompressed. GenSurg consulted. Current hospitalization,he presented with the severe small-bowel obstruction and dehydration with TYLER. Nasogastric tube and fluid resuscitation as well as analgesics were administered. He improved significantly and had a water-soluble small bowel follow-through . This showed the contrast went through to the colon but it was very prolonged. Patient had had 2 or 3 bowel movements and was wanting to at least try clear liquids. He started clear liquids and it was noted he had a serum lipase of over 7000. On 07/[address] scan was performed. It showed that there was a bowel perforation. He is taken to surgery emergently for bowel perforation in the setting of small-bowel obstruction. Currently patient is on postop day 2,Status post small bowel resection x2 and extensive adhesiolysis. (3) Acute kidney injury: Code(s): N17.9 - Acute kidney failure, unspecified Status: Acute Assessment and Plan: Cr 5.8 with BUN 38. No prior labs to compare but no hx of CKD. With IV fluids, BUN/Cr normalized. CT A/P showing normal appearing kidneys and bladder [place] TYLER related to dehydration Monitor renal function, electrolytes and UOP. Avoid nephrotoxins. (4) Alcohol withdrawal delirium: Code(s): F10.931 - Alcohol use, unspecified with withdrawal delirium Status: Acute Assessment and Plan: Patient with evidence of severe withdrawals on admission. CIWA protocol started. Patient became much improved. Restraints and sitter were discontinued. CIWA scose down to 0-2 range Educated about the benefits of abstaining from alcohol Family in the room mention patient was talking about fentanyl. Patient denies taking fentanyl prior to admission. No UDS was performed. Plan DVT prophylaxis - SCDs Code status - full Subjective Date/time seen: 07/10/24 12:20 Interval history: Patient had incidence of hypoxemia yesterday night. Possibly due to opioid overdose. His [employer] has been discontinued. He was given 1 dose of Narcan. Currently he is in room air and saturating well. Surgery ordered NPO and CT scan which shows bilateral pneumonia, small pleural effusion, dilated small bowels, likely adynamic ileus, wall thickening of small bowel, consistent with enteritis. Patient is already on Levaquin and metronidazole currently he does not have any fever cough or congestion. Will continue the current antibiotic and monitor his vitals and WBC and if needed will escalate his antibiotic. Review of Systems Review of Systems: All other systems reviewed and negative except as noted in the history above. All systems reviewed & are unremarkable except as noted in HPI and below ROS unobtainable: Yes unobtainable due to mental status Exam Narrative: Patient is comfortable, NAD HEENT: eyes are clear and none icteric, NG tube in place LUNGS:CTA HEART: RR S1S2 ABD: BS+ faint and diffusely tender Lower extremities: no edema SKIN: nonjaundiced Neuro: grossly intact. Objective Data Vital Signs Vital Signs: Vital Signs - 24 hr 07/09/24 16:00 07/09/24 20:00 07/10/24 00:05 Temperature 96.1 F L 97.4 F L Pulse Rate 115 H 110 H Respiratory Rate 18 14 Blood Pressure 149/89 H 136/84 Pulse Oximetry 91 90 84 L Oxygen Delivery 07/09/24 20:00 07/10/24 00:00 07/10/24 04:00 Temperature 97.6 F 97.8 F Pulse Rate 90 92 Respiratory Rate 20 16 Blood Pressure 145/92 H 133/92 H Pulse Oximetry 84 L 92 Oxygen Delivery Room Air 07/10/24 08:00 07/10/24 08:00 07/10/24 11:59 Temperature 97.4 F L 97.5 F L Pulse Rate 88 92 Respiratory Rate 18 16 Blood Pressure 141/88 H 139/91 H Pulse Oximetry 93 95 Oxygen Delivery Room Air Intake/Output Intake/Output: Intake & Output 07/07/24 07/08/24 07/09/24 07/10/24 23:59 23:59 23:59 23:59 Intake Total 1810 4163.2 7146.8 2102.5 Output Total 2150 2550 900 300 Balance -340 1613.2 6246.8 1802.5 Meds/Results Medications: Active Medications Generic Name Dose Route Start Last Admin Trade Name Freq PRN Reason Stop Dose Admin Amitriptyline HCl 25 mg 07/06/24 21:00 07/09/24 20:52 Amitriptyline Hcl 25 Mg Tablet PO 25 mg HS EMILE Administration Bupropion HCl 300 mg 07/06/24 10:10 07/10/24 07:43 Bupropion Hcl Xl (24 Hr) 150 Mg Tabcr PO 300 mg DAILY EMILE Administration Buspirone HCl 5 mg 07/07/24 21:00 07/09/24 20:52 Buspirone Hcl 5 Mg Tablet BY MOUTH 5 mg HS EMILE Administration Buspirone HCl 30 mg 07/06/24 10:25 07/10/24 07:43 Buspirone Hcl 10 Mg Tablet PO 30 mg DAILY EMILE Administration Buspirone HCl 10 mg 07/06/24 21:00 07/09/24 20:52 Buspirone Hcl 10 Mg Tablet BY MOUTH 10 mg HS EMILE Administration Dextrose 12.5 gm 07/02/24 14:18 Dextrose 50% 25 Gm/50 Ml Syringe IV PUSH PRN PRN Hypoglycemia Protocol Enoxaparin Sodium 40 mg 07/06/24 09:00 07/10/24 07:47 Enoxaparin 40 Mg/0.4 Ml Syringe SUB-Q 40 mg DAILY EMILE Administration Fluticasone Propionate 2 spray 07/06/24 10:10 07/10/24 07:48 Fluticasone Propionate 0.05% Na Spr 16 Gm Btl (*Bkc) NASAL 2 spray DAILY EMILE Administration Folic Acid 1 mg 07/03/24 09:00 07/10/24 07:48 Folic Acid 1 Mg/0.2 Ml Inj IV PUSH 1 mg QAM EMILE Administration Glucagon 1 mg 07/02/24 14:18 Glucagon For Inj 1 Mg Vial IM PRN PRN Hypoglycemia Protocol Guaifenesin 200 mg 07/08/24 21:21 07/08/24 21:31 Guaifenesin 200 Mg/10 Ml Udc PO 200 mg Q4H PRN Administration Cough Dextrose 1,000 mls @ 100 mls/hr 07/02/24 14:18 Dextrose 5% 1,000 Ml IVPB PRN PRN Hypoglycemia Protocol Ibuprofen 800 mg in 200 mls @ 400 mls/hr 07/07/24 00:00 07/10/24 11:49 Caldolor 800 Mg/200 Ml IVPB 200 mls/hr Q6H EMILE Administration Metronidazole 500 mg in 100 mls @ 100 mls/hr 07/06/24 22:00 07/10/24 05:30 Flagyl 500 Mg/Iso Soln 100 Ml IVPB 100 mls/hr Q8H EMILE Administration Levofloxacin/Dextrose 750 mg in 150 mls @ 100 mls/hr 07/08/24 02:00 07/10/24 04:00 Levaquin 750 Mg/D5w 150 Ml IVPB Infused Q24H EMILE Infusion Dextrose 1,000 mls @ 50 mls/hr 07/07/24 10:08 Dextrose 10% IV CONT .Q20H PRN if PN is interrupted Multivitamins 1.25 ml/ 1,002.5 mls @ 80 mls/hr 07/07/24 14:00 07/10/24 11:48 Multivitamins 1.25 ml/ Amino IV CONT 80 mls/hr Acids/Electrolytes/Dextrose .[id number] EMILE Administration Protocol Fat Emulsion Intravenous 250 mls @ 20.833 mls/hr 07/07/24 14:00 07/10/24 02:30 Lipids 20% IVPB Infused Q24H EMILE Infusion Potassium Chloride 60 meq/ 1,030 mls @ 100 mls/hr 07/09/24 10:00 07/10/24 00:38 Dextrose/Sodium Chloride IV CONT Not Given .[id number] [facility] Insulin Aspart 2 - 5 units 07/02/24 18:00 07/10/24 05:16 Insulin Aspart (*Bkc) 100 Units/Ml SUB-Q Not Given Q6HR [facility] Protocol Lorazepam 1 mg 07/05/24 15:49 07/08/24 14:52 Lorazepam Inj (*Crx) 2 Mg/Ml Vial IV PUSH 1 mg Q6H PRN Administration Anxiety Morphine Sulfate 2 mg 07/10/24 10:20 Morphine Sulfate (*Crx) 2 Mg/Ml Inj IV PUSH Q2H PRN Pain Rated 4-6 Morphine Sulfate 4 mg 07/10/24 10:20 Morphine Sulfate (*Crx) 4 Mg/Ml Inj IV PUSH Q2H PRN Pain Rated 7-10 Naloxone HCl 0.1 mg 07/07/24 09:20 07/10/24 00:02 Naloxone Hcl 0.4 Mg/Ml Vial IV PUSH 0.1 mg Q5MIN PRN Administration Opioid Reversal Non Formulary 1 each 07/07/24 09:00 07/10/24 09:42 Desvenlafaxine PO 08/06/24 08:59 1 each Succinate 25 Mg Tab DAILY EMILE Administration Er Pantoprazole Sodium 40 mg 07/05/24 16:00 07/10/24 07:47 Pantoprazole Sodium Iv 40 Mg Vial IV PUSH 40 mg QAM EMILE Administration Phenol 1 spray 07/02/24 12:12 07/07/24 06:41 Phenol/Sod Pheno [place] M[place] (*Bkc) MUCOUS MEM 1 spray PRN PRN Administration Sore Throat Prochlorperazine Edisylate 10 mg 07/06/24 21:57 07/10/24 07:41 Prochlorperazine Edisylate 10 Mg/2 Ml Vial IV PUSH 10 mg Q6H PRN Administration Nausea And Vomiting Sodium Chloride 10 ml 07/07/24 14:09 Central Line Flush IV PUSH PRN PRN with TPN bag changes Sodium Chloride 20 ml 07/07/24 14:09 Central Line Flush IV PUSH PRN PRN after blood draws Sodium Chloride 10 ml 07/07/24 22:00 07/10/24 05:42 Central Line Flush IV PUSH 10 ml Q8HR EMILE Administration Thiamine HCl 100 mg 07/03/24 09:00 07/10/24 07:47 Thiamine Hcl 200 Mg/2 Ml Vial IV PUSH 100 mg DAILY EMILE Administration Radiology Results: ITS Impressions Small Bowel X-Ray 07/05/24 18:48 IMPRESSION: Delayed passage into the colon with reduction in caliber of the visualized small bowel, markedly distended on initial evaluation. Chest X-Ray 07/07/24 14:34 IMPRESSION: 1. Stable airspace opacities in the lower lung zones, consistent with atelectasis versus pneumonia. Abdomen/Pelvis CT 07/10/24 08:46 IMPRESSION: 1. Bilateral pneumonia. 2. Small pleural effusions. 3. Dilated small bowel, likely adynamic ileus. 4. Wall thickening of small bowel, consistent with enteritis. Abdomen X-Ray 07/10/24 11:22 IMPRESSION: 1. Dilated small bowel, likely adynamic ileus. 2. Airspace opacities at the lung bases, consistent with pneumonia. Labs Labs: Laboratory Results - last 24 hr 07/09/24 07/09/24 07/10/24 17:32 23:51 04:23 WBC RBC Hgb Hct MCV MCH MCHC RDW Plt Count MPV Immature Gran % (Auto) Neut % (Auto) Lymph % (Auto) [place] % (Auto) Eos % (Auto) Baso % (Auto) Lymph # (Auto) [place] # (Auto) Eos # (Auto) Baso # (Auto) Abs Immat Gran (auto) Absolute Neuts (auto) Absolute Nucleated RBC Nucleated RBC % PT INR APTT Sodium Potassium Chloride Carbon Dioxide Anion Gap BUN Creatinine Estim Creat Clear Calc Estimated GFR Glucose POC Capillary Glucose 118 H 109 H 126 H Calcium Phosphorus Magnesium Transferrin Total Bilirubin AST ALT Alkaline Phosphatase Total Protein Albumin Triglycerides Lipase 07/10/24 07/10/24 04:49 11:31 WBC 11.8 H RBC 4.15 L Hgb 13.1 L Hct 38.7 L MCV 93.3 MCH 31.6 MCHC 33.9 RDW 12.3 Plt Count 288 MPV 10.5 H Immature Gran % (Auto) 7.3 H Neut % (Auto) 72.8 Lymph % (Auto) 9.6 L [place] % (Auto) 6.9 Eos % (Auto) 2.5 Baso % (Auto) 0.9 Lymph # (Auto) 1.13 [place] # (Auto) 0.8 H Eos # (Auto) 0.3 Baso # (Auto) 0.1 Abs Immat Gran (auto) 0.86 H Absolute Neuts (auto) 8.6 H Absolute Nucleated RBC 0.000 Nucleated RBC % 0.0 PT 15.1 H INR 1.1 APTT 37.0 H Sodium 137 Potassium 3.4 Chloride 100 Carbon Dioxide 32 H Anion Gap 5 BUN 13 Creatinine 0.60 L Estim Creat Clear Calc 171 Estimated GFR > 60 Glucose 113 H POC Capillary Glucose 106 H Calcium 8.4 Phosphorus 4.1 Magnesium 1.9 Transferrin 132 L Total Bilirubin 0.4 AST 27 ALT 15 Alkaline Phosphatase 54 Total Protein 6.0 L Albumin 2.9 L Triglycerides 95 Lipase 1631 H Quality VTE Prophylaxis VTE prophylaxis: mechanical ordered Hospitalist MIPS Advance Care Plan I have confirmed that the patient's Advanced Care Plan is present, code status is documented, or surrogate decision maker is listed in patient medical record.: Yes Medication Reconciliation I have utilized all available resources to obtain, update and review the patients current medications (includes all prescriptions, OTC, herbals, cannabis, and nutritional supplements).: Yes
[2024-07-10] MEDS: HYDROGEN PEROXIDE 3% SOLN(*SP) 473 ML BOTTLE (13:29)
[2024-07-10] MEDS: MORPHINE SULFATE (*CRX) 2 MG/ML INJ IV PUSH ×4 (13:29→22:28)
[2024-07-10] MEDS: WATER FOR IRRIGATION, STERILE 500 ML BOTTLE (13:30)
[2024-07-10] MEDS: FAT EMULSIONS IV 20% 250 ML 20.8 ML IVPB (13:31)
[2024-07-10] MEDS: POTASSIUM CHLORIDE IV CONT (14:30)
[2024-07-10] MEDS: DEXTROSE IV CONT (14:30)
[2024-07-10] MEDS: SOD CHL IV CONT (14:30)
[2024-07-10 18:01] LABS: Glucose Point of Care 107 mg/dl (65-105)
[2024-07-10] MEDS: LORazepam INJ (*CRX) 2 MG/ML VIAL 1 MG IV PUSH (21:04)
[2024-07-10] MEDS: busPIRone HCL 10 MG TABLET BY MOUTH (21:05)
[2024-07-10] MEDS: busPIRone HCL 5 MG TABLET BY MOUTH (21:05)
[2024-07-10] MEDS: AMITRIPTYLINE HCL 25 MG TABLET PO (21:05)
[2024-07-11] VITALS: BP 147/92; PULSE 103; RESP 14; TEMP 37.1; O2SAT 90
[2024-07-11 00:22] LABS: Glucose Point of Care 149 mg/dl (65-105)
[2024-07-11] MEDS: MORPHINE SULFATE (*CRX) 2 MG/ML INJ IV PUSH ×3 (01:11→21:12)
[2024-07-11] MEDS: levoFLOXacin 750 MG/D5W 150 ML 750 MG/150 ML BAG 100 MG IVPB (01:12)
[2024-07-11] MEDS: LORazepam INJ (*CRX) 2 MG/ML VIAL 1 MG IV PUSH ×3 (03:35→21:45)
[2024-07-11 04:00] VITALS: BP 142/92; PULSE 97; RESP 22; TEMP 36.2; O2SAT 91
[2024-07-11] MEDS: AMINO ACIDS 5%/D15W/E-LYTES/CA 1,000 ML with MULTIVITAMINS-12 INJ VIAL 1 1.25 ML, MULTI... 80 ML IV CONT ×2 (04:30→17:48)
[2024-07-11 04:58] LABS: Glucose Point of Care 129 mg/dl (65-105)
[2024-07-11] MEDS: metroNIDAZOLE 500 MG/ISO 100ML 500 MG/100 ML BAG 100 MG IVPB ×3 (05:49→21:15)
[2024-07-11] MEDS: PROCHLORPERAZINE EDISYLATE 10 MG/2 ML VIAL IV PUSH ×2 (06:04→11:49)
[2024-07-11 06:18] LABS: Hematocrit 37.4 % (42.0-52.0); Hemoglobin 12.7 g/dL (14.0-18.0); Mean Corpuscular Hemoglobin 31.3 pg (26-34); Mean Corpuscular Volume 92.1 fl (80-100); Mean Platelet Volume 10.1 fl (7.4-10.4); Platelet Count Result 331 k/mm3 (150-375); Red Blood Count 4.06 M/mm3 (4.6-6.20); Red Cell Distribution Width 12.1 % (11.5-14.5); White Blood Count 14.3 K/mm3 (4.5-10.0)
[2024-07-11 06:31] LABS: Alanine Aminotransferase 19 U/L (6-50); Albumin Level 2.9 g/dL (3.5-5.1); Alkaline Phosphatase 59 U/L (38-126); Anion Gap 6 mmol/L (4-12); Aspartate Amino Transferase 37 U/L (17-59); Bilirubin,Total 0.4 mg/dL (0.2-1.3); Blood Urea Nitrogen 11 mg/dL (9-20); Calcium 8.2 mg/dL (8.4-10.2); Carbon Dioxide 28 mmol/L (22-30); Chloride 101 mmol/L (98-107); Estimated CRCL calculation 168 ml/min; Estimated Glomerular Filt Rate > 60; Glucose 113 mg/dL (65-110); Lipase 1313 U/L (23-300); Phosphorus 3.6 mg/dL (2.5-4.5); Potassium 3.6 mmol/L (3.4-5.0); Sodium 135 mmol/L (137-145)
[2024-07-11] MEDS: CENTRAL LINE FLUSH 10 ML IV PUSH ×3 (06:37→21:46)
[2024-07-11 08:00] VITALS: BP 151/92; PULSE 80; PULSE 88; RESP 18; TEMP 36.7; O2SAT 96; O2SAT 99
[2024-07-11] MEDS: FOLIC ACID 1 MG/0.2 ML INJ IV PUSH (08:51)
[2024-07-11] MEDS: ENOXAPARIN 40 MG/0.4 ML SYRINGE SUB-Q (08:51)
[2024-07-11] MEDS: PANTOPRAZOLE SODIUM IV 40 MG VIAL IV PUSH (08:52)
[2024-07-11] MEDS: THIAMINE HCL 200 MG/2 ML VIAL 100 MG IV PUSH (08:52)
[2024-07-11] MEDS: FLUTICASONE PROPIONATE 0.05% NA SPR 16 GM BTL (*BKC) 2 SPRAY NASAL (08:52)
[2024-07-11] MEDS: busPIRone HCL 10 MG TABLET 30 MG PO (08:54)
[2024-07-11] MEDS: buPROPion HCL XL (24 HR) 150 MG TABCR 300 MG PO (08:54)
--- NOTE | 2024-07-11 10:42 | PCNFU ---
Nutrition Follow-Up Complete: Altered GI function as related to Small Bowel Obstruction as related to NPO/NGT goal: Meet estimated nutritional needs Patient will continue current goal. Pt current nutrition is TPN at 80 ml/hr. Last recorded weight is 111.8 kg, up from 94.6 kg on admit. Bowel Motility: +BM reported 07/10 Labs Reviewed: Glu 113, Na 135, Hct 37.4, Hgb 12.7 Meds Noted:Clinimix E 5/15 at 80 ml/hr with 20% Lipid Emulsion, Thiamine, Flagyl, Lovenox, Lovenox. Skin: WNL Additional Notes: Patient remains on TPN at this time. NPO with ice chips. Bowel rest continues and some nausea still reported per nursing. BM reported 07/10. TPN providing 1863 kcals/98 gm protein, meeting 98% kcal needs at 20 kcal/kg and 100% kcal needs at 0/8-1.0 gm/kg. Agree with diet orders at this time. Will monitor weight, labs, skin, diet orders, meds every Wednesday and Wednesday.
--- NOTE | 2024-07-11 11:12 | PM.PNGS ---
Progress Note: A&P Assessment and Plan (1) Leukocytosis: Qualifiers: Leukocytosis type: bandemia Qualified Code(s): D72.825 - Bandemia Code(s): D72.829 - Elevated white blood cell count, unspecified Status: Acute Assessment and Plan: White blood cell count even higher today. Could be due to wound infection or to adynamic ileus. Also the possibility of drug related fever from antibiotics. Continue to follow. Wound is being drained and NG tube will be placed today for adynamic ileus. (2) Adynamic ileus: Code(s): K56.0 - Paralytic ileus Status: Acute Assessment and Plan: Today's films actually looked worse than yesterday in my inspection. Will go ahead and place nasogastric tube for postoperative ileus. Patient continuing to have bouts of nausea even though was NPO for the last 24 hours. He is still taking quite a few ice chips and sips of water with 500 cc p.o. on the intake yesterday. 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 Adhesiolysis with small bowel resection x2. (4) Small bowel perforation: Code(s): K63.1 - Perforation of intestine (nontraumatic) Status: Acute Assessment and Plan: Postop day 5. Perforation removed with small-bowel resection. Pathology only shows perforation with serosal adhesions. (5) Superficial postoperative wound infection: Code(s): T81.49XA - Infection following a procedure, other surgical site, initial encounter Status: Acute Assessment and Plan: Hoping to avoid opening nearly the entire wound. Will recheck again but may need to remove some of the subcuticular skin suture. (6) Protein-calorie malnutrition, moderate: Code(s): E44.0 - Moderate protein-calorie malnutrition Status: Acute Assessment and Plan: Continue TPN at 80 an hour. Meeting patient's needs per dietitian assessment. Subjective Subjective Date/Time Seen: 07/11/24 11:12 Post Op day: #5 Patient reports: pain is less, voiding w/o difficulty, bowel movement, nausea (TAKING PROCHLORPERAZINE PRETTY REGULARLY.) and afebrile Review of Systems Review of Systems: All systems reviewed & are unremarkable except as noted in HPI and below (HPI) Exam Const: General: cooperative, comfortable, no acute distress, alert, awake and anxious Orientation/consciousness: patient oriented x3 Other: 3 more areas opened in the abdominal wound to allow drainage of seropurulent fluid. There is still some tracking and we may need to remove some subcuticular suture as well. GI: Inspection: distended and incision (Open areas from yesterday less erythematous, still some reddened areas) GI Palp: Yes Soft to palpation, Yes Tenderness to palpation present (GI) (Pretty diffuse tenderness as before), No Guarding due to palpation present (GI) and No Rebound tenderness present Auscultation: Hypoactive bowel sounds present Neuro: General: patient oriented x3 and no focal motor deficits Extrem: General: no calf tenderness and no edema Psych: Speech and movement: Normal speech and movement present Affect: Anxious affect present Attitude: cooperative Insight: Good insight present (Psych) Judgement: Good judgement present (Psych) Objective Data Vital Signs Vital Signs: Vital Signs - 24 hr 07/10/24 11:59 07/10/24 16:00 07/10/24 20:00 Temperature 36.4 C L 36.3 C L 37.6 C H Pulse Rate 92 93 97 Respiratory Rate 16 16 18 Blood Pressure 139/91 H 130/64 144/96 H Pulse Oximetry 95 94 91 07/11/24 00:00 07/11/24 04:00 07/11/24 08:00 Temperature 37.1 C 36.2 C L 36.7 C Pulse Rate 103 H 97 88 Respiratory Rate 14 22 H 18 Blood Pressure 147/92 H 142/92 H 151/92 H Pulse Oximetry 90 91 99 Intake/Output Intake/Output: Intake & Output 07/08/24 07/09/24 07/10/24 07/11/24 23:59 23:59 23:59 23:59 Intake Total 4163.2 7146.8 3432.5 1002.5 Output Total 2550 900 550 Balance 1613.2 6246.8 2882.5 1002.5 Meds/Results Medications: Active Medications Generic Name Dose Route Start Last Admin Trade Name Freq PRN Reason Stop Dose Admin Amitriptyline HCl 25 mg 07/06/24 21:00 07/10/24 21:05 Amitriptyline Hcl 25 Mg Tablet PO 25 mg HS EMILE Administration Bupropion HCl 300 mg 07/06/24 10:10 07/11/24 08:54 Bupropion Hcl Xl (24 Hr) 150 Mg Tabcr PO 300 mg DAILY EMILE Administration Buspirone HCl 5 mg 07/07/24 21:00 07/10/24 21:05 Buspirone Hcl 5 Mg Tablet BY MOUTH 5 mg HS EMILE Administration Buspirone HCl 30 mg 07/06/24 10:25 07/11/24 08:54 Buspirone Hcl 10 Mg Tablet PO 30 mg DAILY EMILE Administration Buspirone HCl 10 mg 07/06/24 21:00 07/10/24 21:05 Buspirone Hcl 10 Mg Tablet BY MOUTH 10 mg HS EMILE Administration Dextrose 12.5 gm 07/02/24 14:18 Dextrose 50% 25 Gm/50 Ml Syringe IV PUSH PRN PRN Hypoglycemia Protocol Enoxaparin Sodium 40 mg 07/06/24 09:00 07/11/24 08:51 Enoxaparin 40 Mg/0.4 Ml Syringe SUB-Q 40 mg DAILY EMILE Administration Fluticasone Propionate 2 spray 07/06/24 10:10 07/11/24 08:52 Fluticasone Propionate 0.05% Na Spr 16 Gm Btl (*Bkc) NASAL 2 spray DAILY EMILE Administration Folic Acid 1 mg 07/03/24 09:00 07/11/24 08:51 Folic Acid 1 Mg/0.2 Ml Inj IV PUSH 1 mg QAM EMILE Administration Glucagon 1 mg 07/02/24 14:18 Glucagon For Inj 1 Mg Vial IM PRN PRN Hypoglycemia Protocol Guaifenesin 200 mg 07/08/24 21:21 07/08/24 21:31 Guaifenesin 200 Mg/10 Ml Udc PO 200 mg Q4H PRN Administration Cough Dextrose 1,000 mls @ 100 mls/hr 07/02/24 14:18 Dextrose 5% 1,000 Ml IVPB PRN PRN Hypoglycemia Protocol Metronidazole 500 mg in 100 mls @ 100 mls/hr 07/06/24 22:00 07/11/24 05:49 Flagyl 500 Mg/Iso Soln 100 Ml IVPB 100 mls/hr Q8H EMILE Administration Levofloxacin/Dextrose 750 mg in 150 mls @ 100 mls/hr 07/08/24 02:00 07/11/24 01:12 Levaquin 750 Mg/D5w 150 Ml IVPB 100 mls/hr Q24H EMILE Administration Dextrose 1,000 mls @ 50 mls/hr 07/07/24 10:08 Dextrose 10% IV CONT .Q20H PRN if PN is interrupted Multivitamins 1.25 ml/ 1,002.5 mls @ 80 mls/hr 07/07/24 14:00 07/11/24 04:30 Multivitamins 1.25 ml/ Amino IV CONT 80 mls/hr Acids/Electrolytes/Dextrose .[id number] EMILE Administration Protocol Fat Emulsion Intravenous 250 mls @ 20.833 mls/hr 07/07/24 14:00 07/10/24 13:31 Lipids 20% IVPB 20.8 mls/hr Q24H EMILE Administration Potassium Chloride 60 meq/ 1,030 mls @ 100 mls/hr 07/09/24 10:00 07/10/24 14:30 Dextrose/Sodium Chloride IV CONT 100 mls/hr .[id number] EMILE Administration Ibuprofen 800 mg in 200 mls @ 400 mls/hr 07/10/24 14:36 Caldolor 800 Mg/200 Ml IVPB Q6H PRN Pain Rated 1-3 Insulin Aspart 2 - 5 units 07/02/24 18:00 07/11/24 06:35 Insulin Aspart (*Bkc) 100 Units/Ml SUB-Q Not Given Q6HR [facility] Protocol Lorazepam 1 mg 07/05/24 15:49 07/11/24 09:29 Lorazepam Inj (*Crx) 2 Mg/Ml Vial IV PUSH 1 mg Q6H PRN Administration Anxiety Morphine Sulfate 2 mg 07/10/24 10:20 07/11/24 08:30 Morphine Sulfate (*Crx) 2 Mg/Ml Inj IV PUSH 2 mg Q2H PRN Administration Pain Rated 4-6 Morphine Sulfate 4 mg 07/10/24 10:20 Morphine Sulfate (*Crx) 4 Mg/Ml Inj IV PUSH Q2H PRN Pain Rated 7-10 Naloxone HCl 0.1 mg 07/07/24 09:20 07/10/24 00:02 Naloxone Hcl 0.4 Mg/Ml Vial IV PUSH 0.1 mg Q5MIN PRN Administration Opioid Reversal Non Formulary 1 each 07/07/24 09:00 07/10/24 09:42 Desvenlafaxine PO 08/06/24 08:59 1 each Succinate 25 Mg Tab DAILY EMILE Administration Er Pantoprazole Sodium 40 mg 07/05/24 16:00 07/11/24 08:52 Pantoprazole Sodium Iv 40 Mg Vial IV PUSH 40 mg QAM EMILE Administration Phenol 1 spray 07/02/24 12:12 07/07/24 06:41 Phenol/Sod Pheno [place] Mendez (*Bkc) MUCOUS MEM 1 spray PRN PRN Administration Sore Throat Prochlorperazine Edisylate 10 mg 07/06/24 21:57 07/11/24 06:04 Prochlorperazine Edisylate 10 Mg/2 Ml Vial IV PUSH 10 mg Q6H PRN Administration Nausea And Vomiting Sodium Chloride 10 ml 07/07/24 14:09 Central Line Flush IV PUSH PRN PRN with TPN bag changes Sodium Chloride 20 ml 07/07/24 14:09 Central Line Flush IV PUSH PRN PRN after blood draws Sodium Chloride 10 ml 07/07/24 22:00 07/11/24 06:37 Central Line Flush IV PUSH 10 ml Q8HR EMILE Administration Thiamine HCl 100 mg 07/03/24 09:00 07/11/24 08:52 Thiamine Hcl 200 Mg/2 Ml Vial IV PUSH 100 mg DAILY EMILE Administration Radiology Results: ITS Impressions Small Bowel X-Ray 07/05/24 18:48 IMPRESSION: Delayed passage into the colon with reduction in caliber of the visualized small bowel, markedly distended on initial evaluation. Chest X-Ray 07/07/24 14:34 IMPRESSION: 1. Stable airspace opacities in the lower lung zones, consistent with atelectasis versus pneumonia. Abdomen/Pelvis CT 07/10/24 08:46 IMPRESSION: 1. Bilateral pneumonia. 2. Small pleural effusions. 3. Dilated small bowel, likely adynamic ileus. 4. Wall thickening of small bowel, consistent with enteritis. Abdomen X-Ray 07/11/24 08:07 IMPRESSION: 1. Persistently dilated small bowel, likely adynamic ileus. Compared plain films from today versus yesterday-seems to have more bowel dilatation than was present yesterday. Certain any no less. Pattern suggests ileus. Labs Labs: Laboratory Results - last 24 hr 07/10/24 07/10/24 07/11/24 11:31 17:59 00:11 WBC RBC Hgb Hct MCV MCH MCHC RDW Plt Count MPV Sodium Potassium Chloride Carbon Dioxide Anion Gap BUN Creatinine Estim Creat Clear Calc Estimated GFR Glucose POC Capillary Glucose 106 H 107 H 149 H Calcium Phosphorus Magnesium Total Bilirubin AST ALT Alkaline Phosphatase Total Protein Albumin Lipase 07/11/24 07/11/24 04:24 06:00 WBC 14.3 H RBC 4.06 L Hgb 12.7 L Hct 37.4 L MCV 92.1 MCH 31.3 MCHC 34.0 RDW 12.1 Plt Count 331 MPV 10.1 Sodium 135 L Potassium 3.6 Chloride 101 Carbon Dioxide 28 Anion Gap 6 BUN 11 Creatinine 0.70 Estim Creat Clear Calc 168 Estimated GFR > 60 Glucose 113 H POC Capillary Glucose 129 H Calcium 8.2 L Phosphorus 3.6 Magnesium 2.0 Total Bilirubin 0.4 AST 37 ALT 19 Alkaline Phosphatase 59 Total Protein 6.0 L Albumin 2.9 L Lipase 1313 H WBC slightly higher at 14,300. Creatinine remains normal. Lipase slightly lower. Imaging Attestation: I personally reviewed and interpreted this imaging study as follows: (Plain films of the abdomen from today as well as yesterday.) My impression: Ileus but more small-bowel dilatation today than was present yesterday. Radiologist's impression: FINDINGS: There is dilated small bowel in the upper abdomen. The colon is normal in caliber. Skin sandor are noted.
[2024-07-11] MEDS: DEXTROSE IV CONT ×2 (11:48→14:45)
[2024-07-11] MEDS: SOD CHL IV CONT ×2 (11:48→14:45)
[2024-07-11] MEDS: POTASSIUM CHLORIDE IV CONT ×2 (11:48→14:45)
[2024-07-11] MEDS: MORPHINE SULFATE (*CRX) 4 MG/ML INJ IV PUSH ×3 (11:49→17:42)
[2024-07-11 12:00] VITALS: BP 140/83; PULSE 89; RESP 16; TEMP 36.4; O2SAT 98
[2024-07-11] MEDS: IBUPROFEN IV 800 MG/200 ML 800 MG/200 ML BAG 400 MG IVPB (13:54)
[2024-07-11] MEDS: FAT EMULSIONS IV 20% 250 ML 20.8 ML IVPB (14:46)
[2024-07-11 16:00] VITALS: BP 137/88; PULSE 80; RESP 18; TEMP 36.3; O2SAT 96
--- NOTE | 2024-07-11 16:03 | P.PNIM_ITS ---
Progress Note: A&P Assessment and Plan (1) Sepsis: Code(s): A41.9 - Sepsis, unspecified organism Status: Acute Assessment and Plan: Patient presents with abdominal pain and met SIRS criteria on admission with t achycardic, tachypnea, leukocytosis. UCx negative. BCx NGTD. CXR clear. CT A/P showing no acute infectious process. Infectious etiology unlikely. SIRS possibly from dehydration, SBO and/or alcohol withdrawal. Abx stopped Continue to monitor closely off abx. (2) Complete obstruction of small intestine: Code(s): K56.601 - Complete intestinal obstruction, unspecified as to cause Status: Deleted Assessment and Plan: Patient had perforated Meckel's diverticulum in 2008 resulting in peritonitis and subsequent peritoneal scarring. He has a hx of SBO since with 2 small bowel resections for adhesions but no episodes for about 6 yrs. He did have a left inguinal surgery repair about [address] abd/pelvis 07/02 shows marked distention of stomach and proximal small bowel loops, with transition point in the anterior mid abdomen just deep to the umbilicus. Findings are compatible with high-grade small bowel obstruction. Distal small bowel and large bowel are relatively decompressed. GenSurg following, advance diet per surgery. Current hospitalization,he presented with the severe small-bowel obstruction and dehydration with TYLER. Nasogastric tube and fluid resuscitation as well as analgesics were administered. He improved significantly and had a water-soluble small bowel follow-through . This showed the contrast went through to the colon but it was very prolonged. Patient had had 2 or 3 bowel movements and was wanting to at least try clear liquids. He started clear liquids and it was noted he had a serum lipase of over 7000. On 07/[address] scan was performed. It showed that there was a bowel perforation. He is taken to surgery emergently for bowel perforation in the setting of small-bowel obstruction. Currently patient is on postop day 2,Status post small bowel resection x2 and extensive adhesiolysis. (3) Acute kidney injury: Code(s): N17.9 - Acute kidney failure, unspecified Status: Resolved Assessment and Plan: Resolved. Cr 5.8 with BUN 38. No prior labs to compare but no hx of CKD. With IV fluids, BUN/Cr normalized. CT A/P showing normal appearing kidneys and bladder [place] TYLER related to dehydration Creatinine normal, echo resolved. Continue monitoring. (4) Alcohol withdrawal delirium: Code(s): F10.931 - Alcohol use, unspecified with withdrawal delirium Status: Acute Assessment and Plan: Patient with evidence of severe withdrawals on admission. CIWA protocol started. Patient became much improved. Restraints and sitter were discontinued. CIWA scose down to 0-2 range Educated about the benefits of abstaining from alcohol Family in the room mention patient was talking about fentanyl. Patient denies taking fentanyl prior to admission. No UDS was performed. Plan DVT prophylaxis -subQ Lovenox. Code status - full Subjective Date/time seen: 07/11/24 16:03 Interval history: Comfortable at bedside. On TPN. Review of Systems Review of Systems: All other systems reviewed and negative except as noted in the history above. All systems reviewed & are unremarkable except as noted in HPI and below ROS unobtainable: Yes unobtainable due to mental status Exam Narrative: Patient is comfortable, NAD HEENT: eyes are clear and none icteric, NG tube in place LUNGS:CTA HEART: RR S1S2 ABD: BS+ faint and diffusely tender Lower extremities: no edema SKIN: nonjaundiced Neuro: grossly intact. Objective Data Vital Signs Vital Signs: Vital Signs - 24 hr 07/10/24 20:00 07/11/24 00:00 07/11/24 04:00 Temperature 99.7 F H 98.7 F 97.2 F L Pulse Rate 97 103 H 97 Respiratory Rate 18 14 22 H Blood Pressure 144/96 H 147/92 H 142/92 H Pulse Oximetry 91 90 91 07/11/24 08:00 07/11/24 12:00 Temperature 98.1 F 97.6 F Pulse Rate 88 89 Respiratory Rate 18 16 Blood Pressure 151/92 H 140/83 Pulse Oximetry 99 98 Intake/Output Intake/Output: Intake & Output 07/08/24 07/09/24 07/10/24 07/11/24 23:59 23:59 23:59 23:59 Intake Total 4163.2 7146.8 3432.5 2677.5 Output Total 2550 900 550 Balance 1613.2 6246.8 2882.5 2677.5 Meds/Results Medications: Active Medications Generic Name Dose Route Start Last Admin Trade Name Freq PRN Reason Stop Dose Admin Amitriptyline HCl 25 mg 07/06/24 21:00 07/10/24 21:05 Amitriptyline Hcl 25 Mg Tablet PO 25 mg HS EMILE Administration Bupropion HCl 300 mg 07/06/24 10:10 07/11/24 08:54 Bupropion Hcl Xl (24 Hr) 150 Mg Tabcr PO 300 mg DAILY EMILE Administration Buspirone HCl 5 mg 07/07/24 21:00 07/10/24 21:05 Buspirone Hcl 5 Mg Tablet BY MOUTH 5 mg HS EMILE Administration Buspirone HCl 30 mg 07/06/24 10:25 07/11/24 08:54 Buspirone Hcl 10 Mg Tablet PO 30 mg DAILY EMILE Administration Buspirone HCl 10 mg 07/06/24 21:00 07/10/24 21:05 Buspirone Hcl 10 Mg Tablet BY MOUTH 10 mg HS EMILE Administration Dextrose 12.5 gm 07/02/24 14:18 Dextrose 50% 25 Gm/50 Ml Syringe IV PUSH PRN PRN Hypoglycemia Protocol Enoxaparin Sodium 40 mg 07/06/24 09:00 07/11/24 08:51 Enoxaparin 40 Mg/0.4 Ml Syringe SUB-Q 40 mg DAILY EMILE Administration Fluticasone Propionate 2 spray 07/06/24 10:10 07/11/24 08:52 Fluticasone Propionate 0.05% Na Spr 16 Gm Btl (*Bkc) NASAL 2 spray DAILY EMILE Administration Folic Acid 1 mg 07/03/24 09:00 07/11/24 08:51 Folic Acid 1 Mg/0.2 Ml Inj IV PUSH 1 mg QAM EMILE Administration Glucagon 1 mg 07/02/24 14:18 Glucagon For Inj 1 Mg Vial IM PRN PRN Hypoglycemia Protocol Guaifenesin 200 mg 07/08/24 21:21 07/08/24 21:31 Guaifenesin 200 Mg/10 Ml Udc PO 200 mg Q4H PRN Administration Cough Dextrose 1,000 mls @ 100 mls/hr 07/02/24 14:18 Dextrose 5% 1,000 Ml IVPB PRN PRN Hypoglycemia Protocol Metronidazole 500 mg in 100 mls @ 100 mls/hr 07/06/24 22:00 07/11/24 14:46 Flagyl 500 Mg/Iso Soln 100 Ml IVPB 100 mls/hr Q8H EMILE Administration Levofloxacin/Dextrose 750 mg in 150 mls @ 100 mls/hr 07/08/24 02:00 07/11/24 01:12 Levaquin 750 Mg/D5w 150 Ml IVPB 100 mls/hr Q24H EMILE Administration Dextrose 1,000 mls @ 50 mls/hr 07/07/24 10:08 Dextrose 10% IV CONT .Q20H PRN if PN is interrupted Multivitamins 1.25 ml/ 1,002.5 mls @ 80 mls/hr 07/07/24 14:00 07/11/24 04:30 Multivitamins 1.25 ml/ Amino IV CONT 80 mls/hr Acids/Electrolytes/Dextrose .[id number] EMILE Administration Protocol Fat Emulsion Intravenous 250 mls @ 20.833 mls/hr 07/07/24 14:00 07/11/24 14:46 Lipids 20% IVPB 20.8 mls/hr Q24H EMILE Administration Potassium Chloride 60 meq/ 1,030 mls @ 100 mls/hr 07/09/24 10:00 07/11/24 14:45 Dextrose/Sodium Chloride IV CONT 100 mls/hr .[id number] EMILE Administration Ibuprofen 800 mg in 200 mls @ 400 mls/hr 07/10/24 14:36 07/11/24 13:54 Caldolor 800 Mg/200 Ml IVPB 400 mls/hr Q6H PRN Administration Pain Rated 1-3 Insulin Aspart 2 - 5 units 07/02/24 18:00 07/11/24 14:45 Insulin Aspart (*Bkc) 100 Units/Ml SUB-Q Not Given Q6HR [facility] Protocol Lorazepam 1 mg 07/05/24 15:49 07/11/24 09:29 Lorazepam Inj (*Crx) 2 Mg/Ml Vial IV PUSH 1 mg Q6H PRN Administration Anxiety Morphine Sulfate 2 mg 07/10/24 10:20 07/11/24 08:30 Morphine Sulfate (*Crx) 2 Mg/Ml Inj IV PUSH 2 mg Q2H PRN Administration Pain Rated 4-6 Morphine Sulfate 4 mg 07/10/24 10:20 07/11/24 13:54 Morphine Sulfate (*Crx) 4 Mg/Ml Inj IV PUSH 4 mg Q2H PRN Administration Pain Rated 7-10 Naloxone HCl 0.1 mg 07/07/24 09:20 07/10/24 00:02 Naloxone Hcl 0.4 Mg/Ml Vial IV PUSH 0.1 mg Q5MIN PRN Administration Opioid Reversal Non Formulary 1 each 07/07/24 09:00 07/11/24 08:48 Desvenlafaxine PO 08/06/24 08:59 1 each Succinate 25 Mg Tab DAILY EMILE Administration Er Pantoprazole Sodium 40 mg 07/05/24 16:00 07/11/24 08:52 Pantoprazole Sodium Iv 40 Mg Vial IV PUSH 40 mg QAM EMILE Administration Phenol 1 spray 07/02/24 12:12 07/07/24 06:41 Phenol/Sod Pheno [place] Mendez (*Bkc) MUCOUS MEM 1 spray PRN PRN Administration Sore Throat Prochlorperazine Edisylate 10 mg 07/06/24 21:57 07/11/24 11:49 Prochlorperazine Edisylate 10 Mg/2 Ml Vial IV PUSH 10 mg Q6H PRN Administration Nausea And Vomiting Sodium Chloride 10 ml 07/07/24 14:09 Central Line Flush IV PUSH PRN PRN with TPN bag changes Sodium Chloride 20 ml 07/07/24 14:09 Central Line Flush IV PUSH PRN PRN after blood draws Sodium Chloride 10 ml 07/07/24 22:00 07/11/24 14:47 Central Line Flush IV PUSH 10 ml Q8HR EMILE Administration Thiamine HCl 100 mg 07/03/24 09:00 07/11/24 08:52 Thiamine Hcl 200 Mg/2 Ml Vial IV PUSH 100 mg DAILY EMILE Administration Radiology Results: ITS Impressions Small Bowel X-Ray 07/05/24 18:48 IMPRESSION: Delayed passage into the colon with reduction in caliber of the visualized small bowel, markedly distended on initial evaluation. Chest X-Ray 07/07/24 14:34 IMPRESSION: 1. Stable airspace opacities in the lower lung zones, consistent with atelectasis versus pneumonia. Abdomen/Pelvis CT 07/10/24 08:46 IMPRESSION: 1. Bilateral pneumonia. 2. Small pleural effusions. 3. Dilated small bowel, likely adynamic ileus. 4. Wall thickening of small bowel, consistent with enteritis. Abdomen X-Ray 07/11/24 08:07 IMPRESSION: 1. Persistently dilated small bowel, likely adynamic ileus. Labs Labs: Laboratory Results - last 24 hr 07/10/24 07/11/24 07/11/24 17:59 00:11 04:24 WBC RBC Hgb Hct MCV MCH MCHC RDW Plt Count MPV Sodium Potassium Chloride Carbon Dioxide Anion Gap BUN Creatinine Estim Creat Clear Calc Estimated GFR Glucose POC Capillary Glucose 107 H 149 H 129 H Calcium Phosphorus Magnesium Total Bilirubin AST ALT Alkaline Phosphatase Total Protein Albumin Lipase 07/11/24 06:00 WBC 14.3 H RBC 4.06 L Hgb 12.7 L Hct 37.4 L MCV 92.1 MCH 31.3 MCHC 34.0 RDW 12.1 Plt Count 331 MPV 10.1 Sodium 135 L Potassium 3.6 Chloride 101 Carbon Dioxide 28 Anion Gap 6 BUN 11 Creatinine 0.70 Estim Creat Clear Calc 168 Estimated GFR > 60 Glucose 113 H POC Capillary Glucose Calcium 8.2 L Phosphorus 3.6 Magnesium 2.0 Total Bilirubin 0.4 AST 37 ALT 19 Alkaline Phosphatase 59 Total Protein 6.0 L Albumin 2.9 L Lipase 1313 H Quality VTE Prophylaxis VTE prophylaxis: mechanical ordered
[2024-07-11 18:31] LABS: Glucose Point of Care 146 mg/dl (65-105)
[2024-07-11 20:00] VITALS: BP 127/95; PULSE 73; RESP 22; TEMP 36.1; O2SAT 99
[2024-07-11] MEDS: AMITRIPTYLINE HCL 25 MG TABLET PO (21:14)
[2024-07-11] MEDS: busPIRone HCL 10 MG TABLET BY MOUTH (21:14)
[2024-07-11] MEDS: busPIRone HCL 5 MG TABLET BY MOUTH (21:14)
[2024-07-12] VITALS (7 sets, daily range): BP systolic 124–156; BP diastolic 76–99; PULSE 74–91; RESP 14–22; TEMP 35.6–36.4; O2SAT 94–99
[2024-07-12] MEDS: MORPHINE SULFATE (*CRX) 2 MG/ML INJ IV PUSH ×5 (00:14→22:20)
[2024-07-12 00:32] LABS: Glucose Point of Care 139 mg/dl (65-105)
[2024-07-12] MEDS: levoFLOXacin 750 MG/D5W 150 ML 750 MG/150 ML BAG 100 MG IVPB (02:46)
[2024-07-12] MEDS: DEXTROSE IV CONT ×2 (02:57→16:28)
[2024-07-12] MEDS: SOD CHL IV CONT ×2 (02:57→16:28)
[2024-07-12] MEDS: POTASSIUM CHLORIDE IV CONT ×2 (02:57→16:28)
[2024-07-12] MEDS: LORazepam INJ (*CRX) 2 MG/ML VIAL 1 MG IV PUSH (04:55)
[2024-07-12] MEDS: CENTRAL LINE FLUSH 10 ML IV PUSH ×3 (04:57→21:30)
[2024-07-12] MEDS: metroNIDAZOLE 500 MG/ISO 100ML 500 MG/100 ML BAG 100 MG IVPB (04:58)
[2024-07-12 05:24] LABS: Basophils Percent Auto 0.2 % (0.2-1.2); Eosinophils Absolute Auto 0.3 K/mm3 (0-0.3); Eosinophils Percent Auto 2.1 % (0-4.4); Hematocrit 35.8 % (42.0-52.0); Immature Granulocyte Absolute 0.99 K/mm3 (0.00-0.031); Immature Granulocyte Percent A 7.7 % (0-0.5); Lymphocytes Absolute Auto 1.35 K/mm3 (0.9-3.2); Lymphocytes Percent Auto 10.4 % (18.3-44.2); Mean Corpuscular HGB Conc 33.5 g/dl (32-36); Mean Corpuscular Hemoglobin 31.2 pg (26-34); Mean Platelet Volume 10.4 fl (7.4-10.4); Monocytes Absolute Auto 0.9 K/mm3 (0.1-0.6); Monocytes Percent Auto 6.7 % (2.6-8.5); Neutrophils Absolute Auto 9.4 K/mm3 (1.3-6.7); Neutrophils Percent Auto 72.9 % (45.5-73.1); Platelet Count Result 263 k/mm3 (150-375); Red Blood Count 3.85 M/mm3 (4.6-6.20); Red Cell Distribution Width 12.4 % (11.5-14.5); White Blood Count 12.9 K/mm3 (4.5-10.0)
[2024-07-12 05:32] LABS: Glucose Point of Care 99 mg/dl (65-105)
[2024-07-12 05:33] LABS: Lactic Acid Reflex 0.8 mmol/L (0.7-2.0)
[2024-07-12 05:35] LABS: Alanine Aminotransferase 17 U/L (6-50); Alkaline Phosphatase 58 U/L (38-126); Anion Gap 5 mmol/L (4-12); Aspartate Amino Transferase 25 U/L (17-59); Bilirubin,Total 0.3 mg/dL (0.2-1.3); Blood Urea Nitrogen 11 mg/dL (9-20); Calcium 8.3 mg/dL (8.4-10.2); Carbon Dioxide 27 mmol/L (22-30); Chloride 101 mmol/L (98-107); Estimated CRCL calculation 167 ml/min; Estimated Glomerular Filt Rate > 60; Glucose 112 mg/dL (65-110); Magnesium 2.1 mg/dL (1.6-2.3); Phosphorus 3.9 mg/dL (2.5-4.5); Potassium 3.9 mmol/L (3.4-5.0); Sodium 133 mmol/L (137-145); Triglycerides 116 mg/dL (<150)
[2024-07-12] MEDS: AMINO ACIDS 5%/D15W/E-LYTES/CA 1,000 ML with MULTIVITAMINS-12 INJ VIAL 1 1.25 ML, MULTI... 80 ML IV CONT ×2 (07:03→20:46)
[2024-07-12] MEDS: FOLIC ACID 1 MG/0.2 ML INJ IV PUSH (08:37)
[2024-07-12] MEDS: ENOXAPARIN 40 MG/0.4 ML SYRINGE SUB-Q (08:37)
[2024-07-12] MEDS: PANTOPRAZOLE SODIUM IV 40 MG VIAL IV PUSH (08:37)
[2024-07-12] MEDS: THIAMINE HCL 200 MG/2 ML VIAL 100 MG IV PUSH (08:38)
[2024-07-12] MEDS: buPROPion HCL XL (24 HR) 150 MG TABCR 300 MG PO (08:38)
[2024-07-12] MEDS: busPIRone HCL 10 MG TABLET 30 MG PO (08:38)
[2024-07-12] MEDS: IBUPROFEN IV 800 MG/200 ML 800 MG/200 ML BAG 400 MG IVPB ×2 (11:26→20:39)
[2024-07-12 11:46] LABS: Glucose Point of Care 117 mg/dl (65-105)
--- NOTE | 2024-07-12 12:54 | PM.IMPN ---
Progress Note: A&P Assessment and Plan (1) Sepsis: Code(s): A41.9 - Sepsis, unspecified organism Status: Acute Assessment and Plan: Patient presents with abdominal pain and met SIRS criteria on admission with tachycardic, tachypnea, leukocytosis. UCx negative. BCx NGTD. CXR showed bilateral lower lobe opacities . CT A/P showing no acute infectious process. Infectious etiology unlikely. to complete 7 days of Levaquin, 12/20 Continue to monitor (2) Complete obstruction of small intestine: Code(s): K56.601 - Complete intestinal obstruction, unspecified as to cause Status: Deleted Assessment and Plan: Patient had perforated Meckel's diverticulum in 2008 resulting in peritonitis and subsequent peritoneal scarring. He has a hx of SBO since with 2 small bowel resections for adhesions but no episodes for about 6 yrs. He did have a left inguinal surgery repair about [address] abd/pelvis 07/02 shows marked distention of stomach and proximal small bowel loops, with transition point in the anterior mid abdomen just deep to the umbilicus. Findings are compatible with high-grade small bowel obstruction. Distal small bowel and large bowel are relatively decompressed. GenSurg following, advance diet per surgery. Current hospitalization,he presented with the severe small-bowel obstruction and dehydration with TYLER. Nasogastric tube and fluid resuscitation as well as analgesics were administered. He improved significantly and had a water-soluble small bowel follow-through . This showed the contrast went through to the colon but it was very prolonged. Patient had had 2 or 3 bowel movements and was wanting to at least try clear liquids. He started clear liquids and it was noted he had a serum lipase of over 7000. On 07/[address] scan was performed. It showed that there was a bowel perforation. He is taken to surgery emergently for bowel perforation in the setting of small-bowel obstruction. Currently patient is on postop day 2,Status post small bowel resection x2 and extensive adhesiolysis. (3) Acute kidney injury: Code(s): N17.9 - Acute kidney failure, unspecified Status: Resolved Assessment and Plan: Resolved. Cr 5.8 with BUN 38. No prior labs to compare but no hx of CKD. With IV fluids, BUN/Cr normalized. CT A/P showing normal appearing kidneys and bladder [place] TYLER related to dehydration Creatinine normal, echo resolved. Continue monitoring. (4) Alcohol withdrawal delirium: Code(s): F10.931 - Alcohol use, unspecified with withdrawal delirium Status: Acute Assessment and Plan: Patient with evidence of severe withdrawals on admission. CIWA protocol started. Patient became much improved. Restraints and sitter were discontinued. CIWA scose down to 0-2 range Educated about the benefits of abstaining from alcohol Family in the room mention patient was talking about fentanyl. Patient denies taking fentanyl prior to admission. No UDS was performed. (5) Pneumonia: Code(s): J18.9 - Pneumonia, unspecified organism Status: Acute Assessment and Plan: CXR showed bilateral Lower lobes opacities Day 5/ Levaquin monitor cultures Plan DVT prophylaxis -subQ Lovenox. Code status - full Subjective Date/time seen: 07/12/24 12:54 Interval history: Comfortable at bedside. On TPN. advance diet per gen surgery Review of Systems Review of Systems: All other systems reviewed and negative except as noted in the history above. All systems reviewed & are unremarkable except as noted in HPI and below ROS unobtainable: Yes unobtainable due to mental status Exam Narrative: Patient is comfortable, NAD HEENT: eyes are clear and none icteric, NG tube in place LUNGS:CTA HEART: RR S1S2 ABD: BS+ faint and diffusely tender Lower extremities: no edema SKIN: nonjaundiced Neuro: grossly intact. Objective Data Vital Signs Vital Signs: Vital Signs - 24 hr 07/11/24 16:00 07/11/24 20:00 07/12/24 00:00 Temperature 97.3 F L 97.0 F L 97.4 F L Pulse Rate 80 73 82 Respiratory Rate 18 22 H 14 Blood Pressure 137/88 127/95 H 132/94 H Pulse Oximetry 96 99 99 Oxygen Delivery Fraction of Inspired Oxygen 07/12/24 04:00 07/12/24 07:58 07/12/24 08:00 Temperature 96.8 F L 96.0 F L Pulse Rate 88 91 91 Respiratory Rate 22 H 18 18 Blood Pressure 141/94 H 156/99 H Pulse Oximetry 98 97 97 Oxygen Delivery Room Air Fraction of Inspired Oxygen 21 07/12/24 12:00 Temperature 96.6 F L Pulse Rate 88 Respiratory Rate 18 Blood Pressure 135/89 Pulse Oximetry 99 Oxygen Delivery Fraction of Inspired Oxygen Intake/Output Intake/Output: Intake & Output 07/09/24 07/10/24 07/11/24 07/12/24 23:59 23:59 23:59 23:59 Intake Total 7146.8 3432.5 4230.0 2032.5 Output Total 900 689 583 8884 Balance 6246.8 2882.5 3730.0 -417.5 Meds/Results Medications: Active Medications Generic Name Dose Route Start Last Admin Trade Name Freq PRN Reason Stop Dose Admin Amitriptyline HCl 25 mg 07/06/24 21:00 07/11/24 21:14 Amitriptyline Hcl 25 Mg Tablet PO 25 mg HS EMILE Administration Bupropion HCl 300 mg 07/06/24 10:10 07/12/24 08:38 Bupropion Hcl Xl (24 Hr) 150 Mg Tabcr PO 300 mg DAILY EMILE Administration Buspirone HCl 5 mg 07/07/24 21:00 07/11/24 21:14 Buspirone Hcl 5 Mg Tablet BY MOUTH 5 mg HS EMILE Administration Buspirone HCl 30 mg 07/06/24 10:25 07/12/24 08:38 Buspirone Hcl 10 Mg Tablet PO 30 mg DAILY EMILE Administration Buspirone HCl 10 mg 07/06/24 21:00 07/11/24 21:14 Buspirone Hcl 10 Mg Tablet BY MOUTH 10 mg HS EMILE Administration Dextrose 12.5 gm 07/02/24 14:18 Dextrose 50% 25 Gm/50 Ml Syringe IV PUSH PRN PRN Hypoglycemia Protocol Enoxaparin Sodium 40 mg 07/12/24 09:00 07/12/24 08:37 Enoxaparin 40 Mg/0.4 Ml Syringe SUB-Q 40 mg DAILY EMILE Administration Fluticasone Propionate 2 spray 07/06/24 10:10 07/12/24 08:39 Fluticasone Propionate 0.05% Na Spr 16 Gm Btl (*Bkc) NASAL Not Given DAILY EMILE Folic Acid 1 mg 07/03/24 09:00 07/12/24 08:37 Folic Acid 1 Mg/0.2 Ml Inj IV PUSH 1 mg QAM EMILE Administration Glucagon 1 mg 07/02/24 14:18 Glucagon For Inj 1 Mg Vial IM PRN PRN Hypoglycemia Protocol Guaifenesin 200 mg 07/08/24 21:21 07/08/24 21:31 Guaifenesin 200 Mg/10 Ml Udc PO 200 mg Q4H PRN Administration Cough Dextrose 1,000 mls @ 100 mls/hr 07/02/24 14:18 Dextrose 5% 1,000 Ml IVPB PRN PRN Hypoglycemia Protocol Levofloxacin/Dextrose 750 mg in 150 mls @ 100 mls/hr 07/08/24 02:00 07/12/24 02:46 Levaquin 750 Mg/D5w 150 Ml IVPB 07/14/24 23:59 100 mls/hr Q24H EMILE Administration Dextrose 1,000 mls @ 50 mls/hr 07/07/24 10:08 Dextrose 10% IV CONT .Q20H PRN if PN is interrupted Multivitamins 1.25 ml/ 1,002.5 mls @ 80 mls/hr 07/07/24 14:00 07/12/24 07:03 Multivitamins 1.25 ml/ Amino IV CONT 80 mls/hr Acids/Electrolytes/Dextrose .[id number] EMILE Administration Protocol Fat Emulsion Intravenous 250 mls @ 20.833 mls/hr 07/07/24 14:00 07/11/24 14:46 Lipids 20% IVPB 20.8 mls/hr Q24H EMILE Administration Potassium Chloride 60 meq/ 1,030 mls @ 100 mls/hr 07/09/24 10:00 07/12/24 02:57 Dextrose/Sodium Chloride IV CONT 100 mls/hr .[id number] EMILE Administration Ibuprofen 800 mg in 200 mls @ 400 mls/hr 07/10/24 14:36 07/12/24 11:26 Caldolor 800 Mg/200 Ml IVPB 400 mls/hr Q6H PRN Administration Pain Rated 1-3 Insulin Aspart 2 - 5 units 07/02/24 18:00 07/12/24 07:03 Insulin Aspart (*Bkc) 100 Units/Ml SUB-Q Not Given Q6HR EMILE Protocol Lorazepam 1 mg 07/05/24 15:49 07/12/24 04:55 Lorazepam Inj (*Crx) 2 Mg/Ml Vial IV PUSH 1 mg Q6H PRN Administration Anxiety Morphine Sulfate 2 mg 07/10/24 10:20 07/12/24 11:23 Morphine Sulfate (*Crx) 2 Mg/Ml Inj IV PUSH 2 mg Q2H PRN Administration Pain Rated 4-6 Morphine Sulfate 4 mg 07/10/24 10:20 07/11/24 17:42 Morphine Sulfate (*Crx) 4 Mg/Ml Inj IV PUSH 4 mg Q2H PRN Administration Pain Rated 7-10 Naloxone HCl 0.1 mg 07/07/24 09:20 07/10/24 00:02 Naloxone Hcl 0.4 Mg/Ml Vial IV PUSH 0.1 mg Q5MIN PRN Administration Opioid Reversal Non Formulary 1 each 07/07/24 09:00 07/12/24 08:38 Desvenlafaxine PO 08/06/24 08:59 1 each Succinate 25 Mg Tab DAILY EMILE Administration Er Pantoprazole Sodium 40 mg 07/05/24 16:00 07/12/24 08:37 Pantoprazole Sodium Iv 40 Mg Vial IV PUSH 40 mg QAM EMILE Administration Phenol 1 spray 07/02/24 12:12 07/07/24 06:41 Phenol/Sod Pheno [place] Mendez (*Bkc) MUCOUS MEM 1 spray PRN PRN Administration Sore Throat Prochlorperazine Edisylate 10 mg 07/06/24 21:57 07/11/24 11:49 Prochlorperazine Edisylate 10 Mg/2 Ml Vial IV PUSH 10 mg Q6H PRN Administration Nausea And Vomiting Sodium Chloride 10 ml 07/07/24 14:09 Central Line Flush IV PUSH PRN PRN with TPN bag changes Sodium Chloride 20 ml 07/07/24 14:09 Central Line Flush IV PUSH PRN PRN after blood draws Sodium Chloride 10 ml 07/07/24 22:00 07/12/24 04:57 Central Line Flush IV PUSH 10 ml Q8HR EMILE Administration Thiamine HCl 100 mg 07/03/24 09:00 07/12/24 08:38 Thiamine Hcl 200 Mg/2 Ml Vial IV PUSH 100 mg DAILY EMILE Administration Radiology Results: ITS Impressions Small Bowel X-Ray 07/05/24 18:48 IMPRESSION: Delayed passage into the colon with reduction in caliber of the visualized small bowel, markedly distended on initial evaluation. Chest X-Ray 07/07/24 14:34 IMPRESSION: 1. Stable airspace opacities in the lower lung zones, consistent with atelectasis versus pneumonia. Abdomen/Pelvis CT 07/10/24 08:46 IMPRESSION: 1. Bilateral pneumonia. 2. Small pleural effusions. 3. Dilated small bowel, likely adynamic ileus. 4. Wall thickening of small bowel, consistent with enteritis. Abdomen X-Ray 07/12/24 09:22 IMPRESSION: 1. Persistently dilated small bowel, likely adynamic ileus. 2. Stable airspace opacities in the lower lung zones, consistent with pneumonia. Labs Labs: Laboratory Results - last 24 hr 07/11/24 07/12/24 07/12/24 18:28 00:13 05:00 WBC 12.9 H RBC 3.85 L Hgb 12.0 L Hct 35.8 L MCV 93.0 MCH 31.2 MCHC 33.5 RDW 12.4 Plt Count 263 MPV 10.4 Immature Gran % (Auto) 7.7 H Neut % (Auto) 72.9 Lymph % (Auto) 10.4 L [place] % (Auto) 6.7 Eos % (Auto) 2.1 Baso % (Auto) 0.2 Lymph # (Auto) 1.35 [place] # (Auto) 0.9 H Eos # (Auto) 0.3 Baso # (Auto) 0.0 Abs Immat Gran (auto) 0.99 H Absolute Neuts (auto) 9.4 H Absolute Nucleated RBC 0.000 Nucleated RBC % 0.0 Sodium 133 L Potassium 3.9 Chloride 101 Carbon Dioxide 27 Anion Gap 5 BUN 11 Creatinine 0.70 Estim Creat Clear Calc 167 Estimated GFR > 60 Glucose 112 H POC Capillary Glucose 146 H 139 H Lactic Acid 0.8 Calcium 8.3 L Phosphorus 3.9 Magnesium 2.1 Total Bilirubin 0.3 AST 25 ALT 17 Alkaline Phosphatase 58 Total Protein 5.0 L Albumin 3.0 L Triglycerides 116 07/12/24 07/12/24 05:22 11:39 WBC RBC Hgb Hct MCV MCH MCHC RDW Plt Count MPV Immature Gran % (Auto) Neut % (Auto) Lymph % (Auto) [place] % (Auto) Eos % (Auto) Baso % (Auto) Lymph # (Auto) [place] # (Auto) Eos # (Auto) Baso # (Auto) Abs Immat Gran (auto) Absolute Neuts (auto) Absolute Nucleated RBC Nucleated RBC % Sodium Potassium Chloride Carbon Dioxide Anion Gap BUN Creatinine Estim Creat Clear Calc Estimated GFR Glucose POC Capillary Glucose 99 117 H Lactic Acid Calcium Phosphorus Magnesium Total Bilirubin AST ALT Alkaline Phosphatase Total Protein Albumin Triglycerides Quality VTE Prophylaxis VTE prophylaxis: mechanical ordered
[2024-07-12] MEDS: MORPHINE SULFATE (*CRX) 4 MG/ML INJ IV PUSH ×2 (13:18→18:25)
[2024-07-12] MEDS: PROCHLORPERAZINE EDISYLATE 10 MG/2 ML VIAL IV PUSH (14:27)
[2024-07-12] MEDS: FAT EMULSIONS IV 20% 250 ML 20.8 ML IVPB (14:39)
--- NOTE | 2024-07-12 15:43 | P.PNGS_ITS ---
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 Small-bowel resection x2 performed 07/06/2024 (3) Adynamic ileus: Code(s): K56.0 - Paralytic ileus Status: Acute Assessment and Plan: Patient doing much better after nasogastric tube replaced yesterday. He feels much less bloated and uncomfortable. He has not distended anymore. His white blood cell count is starting to decrease. Continue nasogastric tube for now. (4) Superficial postoperative wound infection: Code(s): T81.49XA - Infection following a procedure, other surgical site, initial encounter Status: Acute Assessment and Plan: Several small areas between subcuticular Vicryl suture have been opened and packed with half-inch iodoform Nu Gauze. Hopefully will avoid fully opening wound. (5) Protein-calorie malnutrition, moderate: Code(s): E44.0 - Moderate protein-calorie malnutrition Status: Acute Assessment and Plan: Continue TPN. Receiving adequate nutrition per dietitian assessment. Subjective Subjective Date/Time Seen: 07/12/24 15:43 Post Op day: #6 Patient reports: no new complaints, feels better, pain is less, voiding w/o difficulty, bowel movement and afebrile Review of Systems Review of Systems: All systems reviewed & are unremarkable except as noted in HPI and below (HPI) Exam Const: General: comfortable, no acute distress, alert, awake and well nourished Orientation/consciousness: patient oriented x3 and No confusion GI: Inspection: non-distended, incision (2 more areas opened and nugauze placed) and scaphoid GI Palp: Yes Soft to palpation, Yes Tenderness to palpation present (GI) (less than last couple days), No Guarding due to palpation present (GI), No Hernia present, No Palpable mass present and No Rebound tenderness present Neuro: General: patient oriented x3 and no focal motor deficits Extrem: General: no calf tenderness and no edema Psych: Affect: normal affect Insight: Good insight present (Psych) Judgement: Good judgement present (Psych) Objective Data Vital Signs Vital Signs: Vital Signs - 24 hr 07/11/24 16:00 07/11/24 20:00 07/12/24 00:00 Temperature 36.3 C L 36.1 C L 36.3 C L Pulse Rate 80 73 82 Respiratory Rate 18 22 H 14 Blood Pressure 137/88 127/95 H 132/94 H Pulse Oximetry 96 99 99 Oxygen Delivery Fraction of Inspired Oxygen 07/12/24 04:00 07/12/24 07:58 07/12/24 08:00 Temperature 36.0 C L 35.6 C L Pulse Rate 88 91 91 Respiratory Rate 22 H 18 18 Blood Pressure 141/94 H 156/99 H Pulse Oximetry 98 97 97 Oxygen Delivery Room Air Fraction of Inspired Oxygen 21 07/12/24 12:00 Temperature 35.9 C L Pulse Rate 88 Respiratory Rate 18 Blood Pressure 135/89 Pulse Oximetry 99 Oxygen Delivery Fraction of Inspired Oxygen Intake/Output Intake/Output: Intake & Output 07/09/24 07/10/24 07/11/24 07/12/24 23:59 23:59 23:59 23:59 Intake Total 7146.8 3432.5 4230.0 2032.5 Output Total 900 998 181 4900 Balance 6246.8 2882.5 3730.0 -417.5 Meds/Results Medications: Active Medications Generic Name Dose Route Start Last Admin Trade Name Boogieq PRN Reason Stop Dose Admin Amitriptyline HCl 25 mg 07/06/24 21:00 07/11/24 21:14 Amitriptyline Hcl 25 Mg Tablet PO 25 mg HS EMILE Administration Bupropion HCl 300 mg 07/06/24 10:10 07/12/24 08:38 Bupropion Hcl Xl (24 Hr) 150 Mg Tabcr PO 300 mg DAILY EMILE Administration Buspirone HCl 5 mg 07/07/24 21:00 07/11/24 21:14 Buspirone Hcl 5 Mg Tablet BY MOUTH 5 mg HS EMILE Administration Buspirone HCl 30 mg 07/06/24 10:25 07/12/24 08:38 Buspirone Hcl 10 Mg Tablet PO 30 mg DAILY EMILE Administration Buspirone HCl 10 mg 07/06/24 21:00 07/11/24 21:14 Buspirone Hcl 10 Mg Tablet BY MOUTH 10 mg HS EMILE Administration Dextrose 12.5 gm 07/02/24 14:18 Dextrose 50% 25 Gm/50 Ml Syringe IV PUSH PRN PRN Hypoglycemia Protocol Enoxaparin Sodium 40 mg 07/12/24 09:00 07/12/24 08:37 Enoxaparin 40 Mg/0.4 Ml Syringe SUB-Q 40 mg DAILY EMILE Administration Fluticasone Propionate 2 spray 07/06/24 10:10 07/12/24 08:39 Fluticasone Propionate 0.05% Na Spr 16 Gm Btl (*Bkc) NASAL Not Given DAILY EMILE Folic Acid 1 mg 07/03/24 09:00 07/12/24 08:37 Folic Acid 1 Mg/0.2 Ml Inj IV PUSH 1 mg QAM EMILE Administration Glucagon 1 mg 07/02/24 14:18 Glucagon For Inj 1 Mg Vial IM PRN PRN Hypoglycemia Protocol Guaifenesin 200 mg 07/08/24 21:21 07/08/24 21:31 Guaifenesin 200 Mg/10 Ml Udc PO 200 mg Q4H PRN Administration Cough Dextrose 1,000 mls @ 100 mls/hr 07/02/24 14:18 Dextrose 5% 1,000 Ml IVPB PRN PRN Hypoglycemia Protocol Levofloxacin/Dextrose 750 mg in 150 mls @ 100 mls/hr 07/08/24 02:00 07/12/24 02:46 Levaquin 750 Mg/D5w 150 Ml IVPB 07/14/24 23:59 100 mls/hr Q24H EMILE Administration Dextrose 1,000 mls @ 50 mls/hr 07/07/24 10:08 Dextrose 10% IV CONT .Q20H PRN if PN is interrupted Multivitamins 1.25 ml/ 1,002.5 mls @ 80 mls/hr 07/07/24 14:00 07/12/24 07:03 Multivitamins 1.25 ml/ Amino IV CONT 80 mls/hr Acids/Electrolytes/Dextrose .[id number] EMILE Administration Protocol Fat Emulsion Intravenous 250 mls @ 20.833 mls/hr 07/07/24 14:00 07/11/24 14:46 Lipids 20% IVPB 20.8 mls/hr Q24H EMILE Administration Potassium Chloride 60 meq/ 1,030 mls @ 100 mls/hr 07/09/24 10:00 07/12/24 02:57 Dextrose/Sodium Chloride IV CONT 100 mls/hr .[id number] EMILE Administration Ibuprofen 800 mg in 200 mls @ 400 mls/hr 07/10/24 14:36 07/12/24 11:26 Caldolor 800 Mg/200 Ml IVPB 400 mls/hr Q6H PRN Administration Pain Rated 1-3 Insulin Aspart 2 - 5 units 07/02/24 18:00 07/12/24 07:03 Insulin Aspart (*Bkc) 100 Units/Ml SUB-Q Not Given Q6HR EMILE Protocol Lorazepam 1 mg 07/05/24 15:49 07/12/24 04:55 Lorazepam Inj (*Crx) 2 Mg/Ml Vial IV PUSH 1 mg Q6H PRN Administration Anxiety Morphine Sulfate 2 mg 07/10/24 10:20 07/12/24 11:23 Morphine Sulfate (*Crx) 2 Mg/Ml Inj IV PUSH 2 mg Q2H PRN Administration Pain Rated 4-6 Morphine Sulfate 4 mg 07/10/24 10:20 07/11/24 17:42 Morphine Sulfate (*Crx) 4 Mg/Ml Inj IV PUSH 4 mg Q2H PRN Administration Pain Rated 7-10 Naloxone HCl 0.1 mg 07/07/24 09:20 07/10/24 00:02 Naloxone Hcl 0.4 Mg/Ml Vial IV PUSH 0.1 mg Q5MIN PRN Administration Opioid Reversal Non Formulary 1 each 07/07/24 09:00 07/12/24 08:38 Desvenlafaxine PO 08/06/24 08:59 1 each Succinate 25 Mg Tab DAILY EMILE Administration Er Pantoprazole Sodium 40 mg 07/05/24 16:00 07/12/24 08:37 Pantoprazole Sodium Iv 40 Mg Vial IV PUSH 40 mg QAM EMILE Administration Phenol 1 spray 07/02/24 12:12 07/07/24 06:41 Phenol/Sod Pheno [place] (*Bkc) MUCOUS MEM 1 spray PRN PRN Administration Sore Throat Prochlorperazine Edisylate 10 mg 07/06/24 21:57 07/11/24 11:49 Prochlorperazine Edisylate 10 Mg/2 Ml Vial IV PUSH 10 mg Q6H PRN Administration Nausea And Vomiting Sodium Chloride 10 ml 07/07/24 14:09 Central Line Flush IV PUSH PRN PRN with TPN bag changes Sodium Chloride 20 ml 07/07/24 14:09 Central Line Flush IV PUSH PRN PRN after blood draws Sodium Chloride 10 ml 07/07/24 22:00 07/12/24 04:57 Central Line Flush IV PUSH 10 ml Q8HR EMILE Administration Thiamine HCl 100 mg 07/03/24 09:00 07/12/24 08:38 Thiamine Hcl 200 Mg/2 Ml Vial IV PUSH 100 mg DAILY EMILE Administration Radiology Results: ITS Impressions Small Bowel X-Ray 07/05/24 18:48 IMPRESSION: Delayed passage into the colon with reduction in caliber of the visualized small bowel, markedly distended on initial evaluation. Chest X-Ray 07/07/24 14:34 IMPRESSION: 1. Stable airspace opacities in the lower lung zones, consistent with atelectasis versus pneumonia. Abdomen/Pelvis CT 07/10/24 08:46 IMPRESSION: 1. Bilateral pneumonia. 2. Small pleural effusions. 3. Dilated small bowel, likely adynamic ileus. 4. Wall thickening of small bowel, consistent with enteritis. Abdomen X-Ray 07/12/24 09:22 IMPRESSION: 1. Persistently dilated small bowel, likely adynamic ileus. 2. Stable airspace opacities in the lower lung zones, consistent with pneumonia. Labs Labs: Laboratory Results - last 24 hr 07/11/24 07/12/24 07/12/24 18:28 00:13 05:00 WBC 12.9 H RBC 3.85 L Hgb 12.0 L Hct 35.8 L MCV 93.0 MCH 31.2 MCHC 33.5 RDW 12.4 Plt Count 263 MPV 10.4 Immature Gran % (Auto) 7.7 H Neut % (Auto) 72.9 Lymph % (Auto) 10.4 L [place] % (Auto) 6.7 Eos % (Auto) 2.1 Baso % (Auto) 0.2 Lymph # (Auto) 1.35 [place] # (Auto) 0.9 H Eos # (Auto) 0.3 Baso # (Auto) 0.0 Abs Immat Gran (auto) 0.99 H Absolute Neuts (auto) 9.4 H Absolute Nucleated RBC 0.000 Nucleated RBC % 0.0 Sodium 133 L Potassium 3.9 Chloride 101 Carbon Dioxide 27 Anion Gap 5 BUN 11 Creatinine 0.70 Estim Creat Clear Calc 167 Estimated GFR > 60 Glucose 112 H POC Capillary Glucose 146 H 139 H Lactic Acid 0.8 Calcium 8.3 L Phosphorus 3.9 Magnesium 2.1 Total Bilirubin 0.3 AST 25 ALT 17 Alkaline Phosphatase 58 Total Protein 5.0 L Albumin 3.0 L Triglycerides 116 07/12/24 07/12/24 05:22 11:39 WBC RBC Hgb Hct MCV MCH MCHC RDW Plt Count MPV Immature Gran % (Auto) Neut % (Auto) Lymph % (Auto) [place] % (Auto) Eos % (Auto) Baso % (Auto) Lymph # (Auto) [place] # (Auto) Eos # (Auto) Baso # (Auto) Abs Immat Gran (auto) Absolute Neuts (auto) Absolute Nucleated RBC Nucleated RBC % Sodium Potassium Chloride Carbon Dioxide Anion Gap BUN Creatinine Estim Creat Clear Calc Estimated GFR Glucose POC Capillary Glucose 99 117 H Lactic Acid Calcium Phosphorus Magnesium Total Bilirubin AST ALT Alkaline Phosphatase Total Protein Albumin Triglycerides WBC finally starting to decrease Imaging Attestation: I personally reviewed and interpreted this imaging study as follows: (Plain films of the abdomen) My impression: Much less small-bowel dilatation, still an ileus pattern. NG in the stomach Radiologist's impression: Same, NG in good position
[2024-07-12 17:57] LABS: Glucose Point of Care 138 mg/dl (65-105)
[2024-07-12] MEDS: AMITRIPTYLINE HCL 25 MG TABLET PO (20:39)
[2024-07-12] MEDS: busPIRone HCL 5 MG TABLET BY MOUTH (20:39)
[2024-07-12] MEDS: busPIRone HCL 10 MG TABLET BY MOUTH (20:39)
[2024-07-12 23:23] LABS: Glucose Point of Care 121 mg/dl (65-105)
[2024-07-13] VITALS (7 sets, daily range): BP systolic 109–144; BP diastolic 70–87; PULSE 63–86; RESP 14–22; TEMP 35.8–36.5; O2SAT 97–100
[2024-07-13] MEDS: levoFLOXacin 750 MG/D5W 150 ML 750 MG/150 ML BAG 100 MG IVPB (01:09)
[2024-07-13] MEDS: LORazepam INJ (*CRX) 2 MG/ML VIAL 1 MG IV PUSH ×3 (01:40→20:21)
[2024-07-13] MEDS: ALTEPLASE 2 MG VIAL (CATHFLO) IV PUSH (05:00)
[2024-07-13 05:47] LABS: Glucose Point of Care 143 mg/dl (65-105)
[2024-07-13] MEDS: CENTRAL LINE FLUSH 10 ML IV PUSH ×3 (06:38→23:16)
[2024-07-13 06:51] LABS: Basophils Percent Auto 0.2 % (0.2-1.2); Eosinophils Absolute Auto 0.3 K/mm3 (0-0.3); Eosinophils Percent Auto 2.7 % (0-4.4); Hematocrit 39.4 % (42.0-52.0); Hemoglobin 12.9 g/dL (14.0-18.0); Immature Granulocyte Absolute 1.15 K/mm3 (0.00-0.031); Immature Granulocyte Percent A 9.5 % (0-0.5); Lymphocytes Percent Auto 9.9 % (18.3-44.2); Mean Corpuscular HGB Conc 32.7 g/dl (32-36); Mean Corpuscular Hemoglobin 30.9 pg (26-34); Mean Corpuscular Volume 94.3 fl (80-100); Mean Platelet Volume 10.4 fl (7.4-10.4); Monocytes Absolute Auto 0.8 K/mm3 (0.1-0.6); Monocytes Percent Auto 6.9 % (2.6-8.5); Neutrophils Absolute Auto 8.6 K/mm3 (1.3-6.7); Neutrophils Percent Auto 70.8 % (45.5-73.1); Platelet Count Result 375 k/mm3 (150-375); Red Blood Count 4.18 M/mm3 (4.6-6.20); Red Cell Distribution Width 12.4 % (11.5-14.5); White Blood Count 12.2 K/mm3 (4.5-10.0)
[2024-07-13] MEDS: IBUPROFEN IV 800 MG/200 ML 800 MG/200 ML BAG 400 MG IVPB ×2 (06:55→16:25)
[2024-07-13 07:00] LABS: Alanine Aminotransferase 19 U/L (6-50); Albumin Level 3.1 g/dL (3.5-5.1); Alkaline Phosphatase 57 U/L (38-126); Anion Gap 3 mmol/L (4-12); Aspartate Amino Transferase 30 U/L (17-59); Bilirubin,Total 0.3 mg/dL (0.2-1.3); Blood Urea Nitrogen 14 mg/dL (9-20); Calcium 8.8 mg/dL (8.4-10.2); Carbon Dioxide 30 mmol/L (22-30); Chloride 101 mmol/L (98-107); Estimated CRCL calculation 132 ml/min; Estimated Glomerular Filt Rate > 60; Glucose 157 mg/dL (65-110); Lipase 1756 U/L (23-300); Magnesium 2.1 mg/dL (1.6-2.3); Phosphorus 4.2 mg/dL (2.5-4.5); Potassium 4.3 mmol/L (3.4-5.0); Sodium 134 mmol/L (137-145)
[2024-07-13] MEDS: PANTOPRAZOLE SODIUM IV 40 MG VIAL IV PUSH (08:39)
[2024-07-13] MEDS: busPIRone HCL 10 MG TABLET 30 MG PO (08:39)
[2024-07-13] MEDS: PROCHLORPERAZINE EDISYLATE 10 MG/2 ML VIAL IV PUSH (08:39)
[2024-07-13] MEDS: buPROPion HCL XL (24 HR) 150 MG TABCR 300 MG PO (08:39)
[2024-07-13] MEDS: MORPHINE SULFATE (*CRX) 2 MG/ML INJ IV PUSH ×4 (08:40→23:15)
[2024-07-13] MEDS: ENOXAPARIN 40 MG/0.4 ML SYRINGE SUB-Q (08:40)
[2024-07-13] MEDS: THIAMINE HCL 200 MG/2 ML VIAL 100 MG IV PUSH (08:41)
[2024-07-13] MEDS: FLUTICASONE PROPIONATE 0.05% NA SPR 16 GM BTL (*BKC) 2 SPRAY NASAL (08:41)
[2024-07-13] MEDS: PHENOL/SOD PHENO SPRAY CHERRY (*BKC) 1 SPRAY MUCOUS MEM (08:41)
[2024-07-13] MEDS: FOLIC ACID 1 MG/0.2 ML INJ IV PUSH (08:56)
--- NOTE | 2024-07-13 11:06 | P.PN_ITS ---
Progress Note: A&P Assessment and Plan (1) Protein-calorie malnutrition, moderate: Code(s): E44.0 - Moderate protein-calorie malnutrition Status: Acute Assessment and Plan: Continue TPN for now. Reordered today. (2) Superficial postoperative wound infection: Code(s): T81.49XA - Infection following a procedure, other surgical site, initial encounter Status: Acute Assessment and Plan: Wound has been partially open. Continue packing the open portions of the wound. He continues on IV antibiotics. (3) Adynamic ileus: Code(s): K56.0 - Paralytic ileus Status: Acute Assessment and Plan: Seems to be improving with nasogastric tube decompression again. He has small bowel movement today. Some bowel function then consider clamping the tube versus removing the tube. (4) Small bowel perforation: Code(s): K63.1 - Perforation of intestine (nontraumatic) Status: Acute Assessment and Plan: Postop day 7 after exploratory laparotomy and segmental small bowel resection x2. Continue supportive management. Continue ambulating in the halls and sitting up in chair. Subjective Date/time seen: 07/13/24 11:06 Interval history: Patient seems to be doing pretty well today. No nausea vomiting. Nasogastric tube replaced yesterday which the improved his nausea. NG output is decreasing. He did have a small bowel movement today. He has been up walking in the [place]. Continues on TPN. Exam GI: Other: Abdomen is soft and minimally distended. Midline incision has 5 small open areas which are draining a small amount of purulent fluid. These areas were packed with quarter-inch iodoform gauze. There is no spreading erythema coming out from the incision. Fascia seems to be intact without evidence of eviscera tion or incisional hernia. Objective Data Vital Signs Vital Signs: Vital Signs - 24 hr 07/12/24 12:00 07/12/24 16:00 07/12/24 20:00 Temperature 35.9 C L 36.2 C L 36.4 C L Pulse Rate 88 74 75 Respiratory Rate 18 16 20 Blood Pressure 135/89 125/83 124/76 Pulse Oximetry 99 94 99 Oxygen Delivery 07/12/24 20:00 07/13/24 00:00 07/13/24 04:00 Temperature 36.0 C L 36.5 C Pulse Rate 63 86 Respiratory Rate 14 22 H Blood Pressure 126/75 109/78 Pulse Oximetry 99 97 Oxygen Delivery Room Air 07/13/24 08:00 Temperature 36.3 C L Pulse Rate 74 Respiratory Rate 16 Blood Pressure 122/79 Pulse Oximetry 99 Oxygen Delivery Intake/Output Intake/Output: Intake & Output 07/10/24 07/11/24 07/12/24 07/13/24 23:59 23:59 23:59 23:59 Intake Total 3432.5 4230.0 4865.0 Output Total 760 839 7205 800 Balance 2882.5 3730.0 2415.0 -800 Meds/Results Medications: Active Medications Generic Name Dose Route Start Last Admin Trade Name Freq PRN Reason Stop Dose Admin Alteplase, Recombinant 2 mg 07/13/24 03:41 07/13/24 05:00 Alteplase 2 Mg Vial (Cathflo) IV PUSH 2 mg ONCE PRN Administration Line Occlusion Amitriptyline HCl 25 mg 07/06/24 21:00 07/12/24 20:39 Amitriptyline Hcl 25 Mg Tablet PO 25 mg HS EMILE Administration Bupropion HCl 300 mg 07/06/24 10:10 07/13/24 08:39 Bupropion Hcl Xl (24 Hr) 150 Mg Tabcr PO 300 mg DAILY EMILE Administration Buspirone HCl 5 mg 07/07/24 21:00 07/12/24 20:39 Buspirone Hcl 5 Mg Tablet BY MOUTH 5 mg HS EMILE Administration Buspirone HCl 30 mg 07/06/24 10:25 07/13/24 08:39 Buspirone Hcl 10 Mg Tablet PO 30 mg DAILY EMILE Administration Buspirone HCl 10 mg 07/06/24 21:00 07/12/24 20:39 Buspirone Hcl 10 Mg Tablet BY MOUTH 10 mg HS EMILE Administration Dextrose 12.5 gm 07/02/24 14:18 Dextrose 50% 25 Gm/50 Ml Syringe IV PUSH PRN PRN Hypoglycemia Protocol Enoxaparin Sodium 40 mg 07/12/24 09:00 07/13/24 08:40 Enoxaparin 40 Mg/0.4 Ml Syringe SUB-Q 40 mg DAILY EMILE Administration Fluticasone Propionate 2 spray 07/06/24 10:10 07/13/24 08:41 Fluticasone Propionate 0.05% Na Spr 16 Gm Btl (*Bkc) NASAL 2 spray DAILY EMILE Administration Folic Acid 1 mg 07/03/24 09:00 07/13/24 08:56 Folic Acid 1 Mg/0.2 Ml Inj IV PUSH 1 mg QAM EMILE Administration Glucagon 1 mg 07/02/24 14:18 Glucagon For Inj 1 Mg Vial IM PRN PRN Hypoglycemia Protocol Guaifenesin 200 mg 07/08/24 21:21 07/08/24 21:31 Guaifenesin 200 Mg/10 Ml Udc PO 200 mg Q4H PRN Administration Cough Dextrose 1,000 mls @ 100 mls/hr 07/02/24 14:18 Dextrose 5% 1,000 Ml IVPB PRN PRN Hypoglycemia Protocol Levofloxacin/Dextrose 750 mg in 150 mls @ 100 mls/hr 07/08/24 02:00 07/13/24 01:09 Levaquin 750 Mg/D5w 150 Ml IVPB 07/14/24 23:59 100 mls/hr Q24H EMILE Administration Dextrose 1,000 mls @ 50 mls/hr 07/07/24 10:08 Dextrose 10% IV CONT .Q20H PRN if PN is interrupted Multivitamins 1.25 ml/ 1,002.5 mls @ 80 mls/hr 07/07/24 14:00 07/12/24 20:46 Multivitamins 1.25 ml/ Amino IV CONT 80 mls/hr Acids/Electrolytes/Dextrose .[id number] EMILE Administration Protocol Fat Emulsion Intravenous 250 mls @ 20.833 mls/hr 07/07/24 14:00 07/12/24 14:39 Lipids 20% IVPB 20.8 mls/hr Q24H EMILE Administration Potassium Chloride 60 meq/ 1,030 mls @ 100 mls/hr 07/09/24 10:00 07/13/24 00:35 Dextrose/Sodium Chloride IV CONT Not Given .[id number] EMILE Ibuprofen 800 mg in 200 mls @ 400 mls/hr 07/10/24 14:36 07/13/24 06:55 Caldolor 800 Mg/200 Ml IVPB 400 mls/hr Q6H PRN Administration Pain Rated 1-3 Insulin Aspart 2 - 5 units 07/02/24 18:00 07/13/24 06:37 Insulin Aspart (*Bkc) 100 Units/Ml SUB-Q Not Given Q6HR EIMLE Protocol Lorazepam 1 mg 07/05/24 15:49 07/13/24 01:40 Lorazepam Inj (*Crx) 2 Mg/Ml Vial IV PUSH 1 mg Q6H PRN Administration Anxiety Miscellaneous Information 1 each 07/14/24 00:01 Clinamix Needs To Be Renewed Or It Will Automatically Discontinue. XX 08/13/24 00:00 CLARIFY EMILE Morphine Sulfate 2 mg 07/10/24 10:20 07/13/24 08:40 Morphine Sulfate (*Crx) 2 Mg/Ml Inj IV PUSH 2 mg Q2H PRN Administration Pain Rated 4-6 Morphine Sulfate 4 mg 07/10/24 10:20 07/12/24 18:25 Morphine Sulfate (*Crx) 4 Mg/Ml Inj IV PUSH 4 mg Q2H PRN Administration Pain Rated 7-10 Naloxone HCl 0.1 mg 07/07/24 09:20 07/10/24 00:02 Naloxone Hcl 0.4 Mg/Ml Vial IV PUSH 0.1 mg Q5MIN PRN Administration Opioid Reversal Desvenlafaxine 1 each 07/07/24 09:00 07/13/24 08:43 Succinate 25 Mg Tab PO 08/06/24 08:59 1 each Er DAILY EMILE Administration Pantoprazole Sodium 40 mg 07/05/24 16:00 07/13/24 08:39 Pantoprazole Sodium Iv 40 Mg Vial IV PUSH 40 mg QAM EMILE Administration Phenol 1 spray 07/02/24 12:12 07/13/24 08:41 Phenol/Sod Pheno [place] (*Bkc) MUCOUS MEM 1 spray PRN PRN Administration Sore Throat Prochlorperazine Edisylate 10 mg 07/06/24 21:57 07/13/24 08:39 Prochlorperazine Edisylate 10 Mg/2 Ml Vial IV PUSH 10 mg Q6H PRN Administration Nausea And Vomiting Sodium Chloride 10 ml 07/07/24 14:09 Central Line Flush IV PUSH PRN PRN with TPN bag changes Sodium Chloride 20 ml 07/07/24 14:09 Central Line Flush IV PUSH PRN PRN after blood draws Sodium Chloride 10 ml 07/07/24 22:00 07/13/24 06:38 Central Line Flush IV PUSH 10 ml Q8HR EMILE Administration Thiamine HCl 100 mg 07/03/24 09:00 07/13/24 08:41 Thiamine Hcl 200 Mg/2 Ml Vial IV PUSH 100 mg DAILY EMILE Administration Radiology Results: ITS Impressions Small Bowel X-Ray 07/05/24 18:48 IMPRESSION: Delayed passage into the colon with reduction in caliber of the visualized small bowel, markedly distended on initial evaluation. Chest X-Ray 07/07/24 14:34 IMPRESSION: 1. Stable airspace opacities in the lower lung zones, consistent with atele ctasis versus pneumonia. Abdomen/Pelvis CT 07/10/24 08:46 IMPRESSION: 1. Bilateral pneumonia. 2. Small pleural effusions. 3. Dilated small bowel, likely adynamic ileus. 4. Wall thickening of small bowel, consistent with enteritis. Abdomen X-Ray 07/13/24 07:45 IMPRESSION: 1. Single persistent short mildly dilated segment of small bowel in the left upper quadrant most likely persistent ileus. 2. Mild opacities in the right lower lung zone which could represent atelectasis or pneumonia. Labs Labs: Laboratory Results - last 24 hr 07/12/24 07/12/24 07/12/24 11:39 17:53 23:19 WBC RBC Hgb Hct MCV MCH MCHC RDW Plt Count MPV Immature Gran % (Auto) Neut % (Auto) Lymph % (Auto) [place] % (Auto) Eos % (Auto) Baso % (Auto) Lymph # (Auto) [place] # (Auto) Eos # (Auto) Baso # (Auto) Abs Immat Gran (auto) Absolute Neuts (auto) Absolute Nucleated RBC Nucleated RBC % Sodium Potassium Chloride Carbon Dioxide Anion Gap BUN Creatinine Estim Creat Clear Calc Estimated GFR Glucose POC Capillary Glucose 117 H 138 H 121 H Calcium Phosphorus Magnesium Total Bilirubin AST ALT Alkaline Phosphatase Total Protein Albumin Lipase 07/13/24 07/13/24 05:34 06:19 WBC 12.2 H RBC 4.18 L Hgb 12.9 L Hct 39.4 L MCV 94.3 MCH 30.9 MCHC 32.7 RDW 12.4 Plt Count 375 MPV 10.4 Immature Gran % (Auto) 9.5 H Neut % (Auto) 70.8 Lymph % (Auto) 9.9 L [place] % (Auto) 6.9 Eos % (Auto) 2.7 Baso % (Auto) 0.2 Lymph # (Auto) 1.20 [place] # (Auto) 0.8 H Eos # (Auto) 0.3 Baso # (Auto) 0.0 Abs Immat Gran (auto) 1.15 H Absolute Neuts (auto) 8.6 H Absolute Nucleated RBC 0.000 Nucleated RBC % 0.0 Sodium 134 L Potassium 4.3 Chloride 101 Carbon Dioxide 30 Anion Gap 3 L BUN 14 Creatinine 0.80 Estim Creat Clear Calc 132 Estimated GFR > 60 Glucose 157 H POC Capillary Glucose 143 H Calcium 8.8 Phosphorus 4.2 Magnesium 2.1 Total Bilirubin 0.3 AST 30 ALT 19 Alkaline Phosphatase 57 Total Protein 6.0 L Albumin 3.1 L Lipase 1756 H
[2024-07-13 12:00] LABS: Glucose Point of Care 114 mg/dl (65-105)
[2024-07-13] MEDS: POTASSIUM CHLORIDE IV CONT ×2 (12:04→23:18)
[2024-07-13] MEDS: SOD CHL IV CONT ×2 (12:04→23:18)
[2024-07-13] MEDS: AMINO ACIDS 5%/D15W/E-LYTES/CA 1,000 ML with MULTIVITAMINS-12 INJ VIAL 1 1.25 ML, MULTI... 80 ML IV CONT (12:04)
[2024-07-13] MEDS: DEXTROSE IV CONT ×2 (12:04→23:18)
[2024-07-13] MEDS: FAT EMULSIONS IV 20% 250 ML 20.8 ML IVPB (14:06)
--- NOTE | 2024-07-13 14:44 | PM.IMPN ---
Progress Note: A&P Assessment and Plan (1) Sepsis: Code(s): A41.9 - Sepsis, unspecified organism Status: Acute Assessment and Plan: Patient presents with abdominal pain and met SIRS criteria on admission with tachycardic, tachypnea, leukocytosis. UCx negative. BCx NGTD. CXR showed bilateral lower lobe opacities . CT A/P showing no acute infectious process. Infectious etiology unlikely. to complete 7 days of Levaquin, 01/20 Continue to monitor (2) Complete obstruction of small intestine: Code(s): K56.601 - Complete intestinal obstruction, unspecified as to cause Status: Deleted Assessment and Plan: Patient had perforated Meckel's diverticulum in 2008 resulting in peritonitis and subsequent peritoneal scarring. He has a hx of SBO since with 2 small bowel resections for adhesions but no episodes for about 6 yrs. He did have a left inguinal surgery repair about [address] abd/pelvis 07/02 shows marked distention of stomach and proximal small bowel loops, with transition point in the anterior mid abdomen just deep to the umbilicus. Findings are compatible with high-grade small bowel obstruction. Distal small bowel and large bowel are relatively decompressed. Gen Surg following, advance diet per surgery. (3) Acute kidney injury: Code(s): N17.9 - Acute kidney failure, unspecified Status: Resolved Assessment and Plan: Resolved. Cr 5.8 with BUN 38. No prior labs to compare but no hx of CKD. With IV fluids, BUN/Cr normalized. CT A/P showing normal appearing kidneys and bladder [place] related to dehydration Creatinine normal, echo resolved. Continue monitoring. (4) Alcohol withdrawal delirium: Code(s): F10.931 - Alcohol use, unspecified with withdrawal delirium Status: Acute Assessment and Plan: Patient with evidence of severe withdrawals on admission. CIWA protocol started. Patient became much improved. Restraints and sitter were discontinued. CIWA scose down to 0-2 range Educated about the benefits of abstaining from alcohol Family in the room mention patient was talking about fentanyl. Patient denies taking fentanyl prior to admission. No UDS was performed. (5) Pneumonia: Code(s): J18.9 - Pneumonia, unspecified organism Status: Acute Assessment and Plan: CXR showed bilateral Lower lobes opacities Day 6/7 Levaquin monitor cultures Plan DVT prophylaxis -subQ Lovenox. Code status - full Subjective Date/time seen: 07/13/24 14:44 Interval history: Patient comfortable at bedside Continue TPN and advance diet per Gen surgery Review of Systems Review of Systems: All other systems reviewed and negative except as noted in the history above. All systems reviewed & are unremarkable except as noted in HPI and below ROS unobtainable: Yes unobtainable due to mental status Exam Narrative: Patient is comfortable, NAD HEENT: eyes are clear and none icteric, NG tube in place LUNGS:CTA HEART: RR S1S2 ABD: BS+ faint and diffusely tender Lower extremities: no edema SKIN: nonjaundiced Neuro: grossly intact. Objective Data Vital Signs Vital Signs: Vital Signs - 24 hr 07/12/24 16:00 07/12/24 20:00 07/12/24 20:00 Temperature 97.1 F L 97.5 F L Pulse Rate 74 75 Respiratory Rate 16 20 Blood Pressure 125/83 124/76 Pulse Oximetry 94 99 Oxygen Delivery Room Air 07/13/24 00:00 07/13/24 04:00 07/13/24 08:00 Temperature 96.8 F L 97.7 F 97.3 F L Pulse Rate 63 86 74 Respiratory Rate 14 22 H 16 Blood Pressure 126/75 109/78 122/79 Pulse Oximetry 99 97 99 Oxygen Delivery 07/13/24 12:00 Temperature 96.6 F L Pulse Rate 81 Respiratory Rate 16 Blood Pressure 131/77 Pulse Oximetry 100 Oxygen Delivery Intake/Output Intake/Output: Intake & Output 07/10/24 07/11/24 07/12/24 07/13/24 23:59 23:59 23:59 23:59 Intake Total 3432.5 4230.0 4865.0 2482.5 Output Total 517 850 7607 800 Balance 2882.5 3730.0 2415.0 1682.5 Meds/Results Medications: Active Medications Generic Name Dose Route Start Last Admin Trade Name Freq PRN Reason Stop Dose Admin Alteplase, Recombinant 2 mg 07/13/24 03:41 07/13/24 05:00 Alteplase 2 Mg Vial (Cathflo) IV PUSH 2 mg ONCE PRN Administration Line Occlusion Amitriptyline HCl 25 mg 07/06/24 21:00 07/12/24 20:39 Amitriptyline Hcl 25 Mg Tablet PO 25 mg HS EMILE Administration Bupropion HCl 300 mg 07/06/24 10:10 07/13/24 08:39 Bupropion Hcl Xl (24 Hr) 150 Mg Tabcr PO 300 mg DAILY EMILE Administration Buspirone HCl 5 mg 07/07/24 21:00 07/12/24 20:39 Buspirone Hcl 5 Mg Tablet BY MOUTH 5 mg HS EMILE Administration Buspirone HCl 30 mg 07/06/24 10:25 07/13/24 08:39 Buspirone Hcl 10 Mg Tablet PO 30 mg DAILY EMILE Administration Buspirone HCl 10 mg 07/06/24 21:00 07/12/24 20:39 Buspirone Hcl 10 Mg Tablet BY MOUTH 10 mg HS EMILE Administration Dextrose 12.5 gm 07/02/24 14:18 Dextrose 50% 25 Gm/50 Ml Syringe IV PUSH PRN PRN Hypoglycemia Protocol Enoxaparin Sodium 40 mg 07/12/24 09:00 07/13/24 08:40 Enoxaparin 40 Mg/0.4 Ml Syringe SUB-Q 40 mg DAILY EMILE Administration Fluticasone Propionate 2 spray 07/06/24 10:10 07/13/24 08:41 Fluticasone Propionate 0.05% Na Spr 16 Gm Btl (*Bkc) NASAL 2 spray DAILY EMILE Administration Folic Acid 1 mg 07/03/24 09:00 07/13/24 08:56 Folic Acid 1 Mg/0.2 Ml Inj IV PUSH 1 mg QAM EMILE Administration Glucagon 1 mg 07/02/24 14:18 Glucagon For Inj 1 Mg Vial IM PRN PRN Hypoglycemia Protocol Guaifenesin 200 mg 07/08/24 21:21 07/08/24 21:31 Guaifenesin 200 Mg/10 Ml Udc PO 200 mg Q4H PRN Administration Cough Dextrose 1,000 mls @ 100 mls/hr 07/02/24 14:18 Dextrose 5% 1,000 Ml IVPB PRN PRN Hypoglycemia Protocol Levofloxacin/Dextrose 750 mg in 150 mls @ 100 mls/hr 07/08/24 02:00 07/13/24 01:09 Levaquin 750 Mg/D5w 150 Ml IVPB 07/14/24 23:59 100 mls/hr Q24H EMILE Administration Dextrose 1,000 mls @ 50 mls/hr 07/07/24 10:08 Dextrose 10% IV CONT .Q20H PRN if PN is interrupted Multivitamins 1.25 ml/ 1,002.5 mls @ 80 mls/hr 07/07/24 14:00 07/13/24 12:04 Multivitamins 1.25 ml/ Amino IV CONT 80 mls/hr Acids/Electrolytes/Dextrose .[id number] EMILE Administration Protocol Fat Emulsion Intravenous 250 mls @ 20.833 mls/hr 07/07/24 14:00 07/13/24 14:06 Lipids 20% IVPB 20.8 mls/hr Q24H EMILE Administration Potassium Chloride 60 meq/ 1,030 mls @ 100 mls/hr 07/09/24 10:00 07/13/24 12:04 Dextrose/Sodium Chloride IV CONT 100 mls/hr .[id number] EMILE Administration Ibuprofen 800 mg in 200 mls @ 400 mls/hr 07/10/24 14:36 07/13/24 07:25 Caldolor 800 Mg/200 Ml IVPB Infused Q6H PRN Infusion Pain Rated 1-3 Insulin Aspart 2 - 5 units 07/02/24 18:00 07/13/24 12:14 Insulin Aspart (*Bkc) 100 Units/Ml SUB-Q Not Given Q6HR [facility] Protocol Lorazepam 1 mg 07/05/24 15:49 07/13/24 14:07 Lorazepam Inj (*Crx) 2 Mg/Ml Vial IV PUSH 1 mg Q6H PRN Administration Anxiety Miscellaneous Information 1 each 07/14/24 00:01 Clinamix Needs To Be Renewed Or It Will Automatically Discontinue. XX 08/13/24 00:00 CLARIFY [facility] Morphine Sulfate 2 mg 07/10/24 10:20 07/13/24 12:06 Morphine Sulfate (*Crx) 2 Mg/Ml Inj IV PUSH 2 mg Q2H PRN Administration Pain Rated 4-6 Morphine Sulfate 4 mg 07/10/24 10:20 07/12/24 18:25 Morphine Sulfate (*Crx) 4 Mg/Ml Inj IV PUSH 4 mg Q2H PRN Administration Pain Rated 7-10 Naloxone HCl 0.1 mg 07/07/24 09:20 07/10/24 00:02 Naloxone Hcl 0.4 Mg/Ml Vial IV PUSH 0.1 mg Q5MIN PRN Administration Opioid Reversal Desvenlafaxine 1 each 07/07/24 09:00 07/13/24 08:43 Succinate 25 Mg Tab PO 08/06/24 08:59 1 each Er DAILY EMILE Administration Pantoprazole Sodium 40 mg 07/05/24 16:00 07/13/24 08:39 Pantoprazole Sodium Iv 40 Mg Vial IV PUSH 40 mg QAM EMILE Administration Phenol 1 spray 07/02/24 12:12 07/13/24 08:41 Phenol/Sod Pheno [place] (*Bkc) MUCOUS MEM 1 spray PRN PRN Administration Sore Throat Prochlorperazine Edisylate 10 mg 07/06/24 21:57 07/13/24 08:39 Prochlorperazine Edisylate 10 Mg/2 Ml Vial IV PUSH 10 mg Q6H PRN Administration Nausea And Vomiting Sodium Chloride 10 ml 07/07/24 14:09 Central Line Flush IV PUSH PRN PRN with TPN bag changes Sodium Chloride 20 ml 07/07/24 14:09 Central Line Flush IV PUSH PRN PRN after blood draws Sodium Chloride 10 ml 07/07/24 22:00 07/13/24 14:07 Central Line Flush IV PUSH 10 ml Q8HR EMILE Administration Thiamine HCl 100 mg 07/03/24 09:00 07/13/24 08:41 Thiamine Hcl 200 Mg/2 Ml Vial IV PUSH 100 mg DAILY EMILE Administration Radiology Results: ITS Impressions Small Bowel X-Ray 07/05/24 18:48 IMPRESSION: Delayed passage into the colon with reduction in caliber of the visualized small bowel, markedly distended on initial evaluation. Chest X-Ray 07/07/24 14:34 IMPRESSION: 1. Stable airspace opacities in the lower lung zones, consistent with atelectasis versus pneumonia. Abdomen/Pelvis CT 07/10/24 08:46 IMPRESSION: 1. Bilateral pneumonia. 2. Small pleural effusions. 3. Dilated small bowel, likely adynamic ileus. 4. Wall thickening of small bowel, consistent with enteritis. Abdomen X-Ray 07/13/24 07:45 IMPRESSION: 1. Single persistent short mildly dilated segment of small bowel in the left upper quadrant most likely persistent ileus. 2. Mild opacities in the right lower lung zone which could represent atelectasis or pneumonia. Labs Labs: Laboratory Results - last 24 hr 07/12/24 07/12/24 07/13/24 17:53 23:19 05:34 WBC RBC Hgb Hct MCV MCH MCHC RDW Plt Count MPV Immature Gran % (Auto) Neut % (Auto) Lymph % (Auto) [place] % (Auto) Eos % (Auto) Baso % (Auto) Lymph # (Auto) [place] # (Auto) Eos # (Auto) Baso # (Auto) Abs Immat Gran (auto) Absolute Neuts (auto) Absolute Nucleated RBC Nucleated RBC % Sodium Potassium Chloride Carbon Dioxide Anion Gap BUN Creatinine Estim Creat Clear Calc Estimated GFR Glucose POC Capillary Glucose 138 H 121 H 143 H Calcium Phosphorus Magnesium Total Bilirubin AST ALT Alkaline Phosphatase Total Protein Albumin Lipase 07/13/24 07/13/24 06:19 11:56 WBC 12.2 H RBC 4.18 L Hgb 12.9 L Hct 39.4 L MCV 94.3 MCH 30.9 MCHC 32.7 RDW 12.4 Plt Count 375 MPV 10.4 Immature Gran % (Auto) 9.5 H Neut % (Auto) 70.8 Lymph % (Auto) 9.9 L [place] % (Auto) 6.9 Eos % (Auto) 2.7 Baso % (Auto) 0.2 Lymph # (Auto) 1.20 [place] # (Auto) 0.8 H Eos # (Auto) 0.3 Baso # (Auto) 0.0 Abs Immat Gran (auto) 1.15 H Absolute Neuts (auto) 8.6 H Absolute Nucleated RBC 0.000 Nucleated RBC % 0.0 Sodium 134 L Potassium 4.3 Chloride 101 Carbon Dioxide 30 Anion Gap 3 L BUN 14 Creatinine 0.80 Estim Creat Clear Calc 132 Estimated GFR > 60 Glucose 157 H POC Capillary Glucose 114 H Calcium 8.8 Phosphorus 4.2 Magnesium 2.1 Total Bilirubin 0.3 AST 30 ALT 19 Alkaline Phosphatase 57 Total Protein 6.0 L Albumin 3.1 L Lipase 1756 H Quality VTE Prophylaxis VTE prophylaxis: mechanical ordered
[2024-07-13 17:47] LABS: Glucose Point of Care 123 mg/dl (65-105)
[2024-07-13] MEDS: MORPHINE SULFATE (*CRX) 4 MG/ML INJ IV PUSH (20:09)
[2024-07-13] MEDS: busPIRone HCL 10 MG TABLET BY MOUTH (20:09)
[2024-07-13] MEDS: AMITRIPTYLINE HCL 25 MG TABLET PO (20:09)
[2024-07-13] MEDS: busPIRone HCL 5 MG TABLET BY MOUTH (20:09)
[2024-07-13 23:32] LABS: Glucose Point of Care 100 mg/dl (65-105)
[2024-07-14] VITALS (7 sets, daily range): BP systolic 107–134; BP diastolic 64–89; PULSE 70–87; RESP 16–20; TEMP 34–36.9; O2SAT 98–100
[2024-07-14] MEDS: levoFLOXacin 750 MG/D5W 150 ML 750 MG/150 ML BAG 100 MG IVPB (01:51)
[2024-07-14] MEDS: MORPHINE SULFATE (*CRX) 2 MG/ML INJ IV PUSH ×8 (02:07→22:59)
[2024-07-14] MEDS: LORazepam INJ (*CRX) 2 MG/ML VIAL 1 MG IV PUSH ×3 (03:00→20:19)
[2024-07-14 05:30] LABS: Glucose Point of Care 133 mg/dl (65-105)
[2024-07-14 06:31] LABS: Basophils Absolute Auto 0.1 K/mm3 (0.0-0.1); Basophils Percent Auto 0.9 % (0.2-1.2); Eosinophils Absolute Auto 0.3 K/mm3 (0-0.3); Hematocrit 39.5 % (42.0-52.0); Hemoglobin 13.1 g/dL (14.0-18.0); Immature Granulocyte Absolute 0.87 K/mm3 (0.00-0.031); Immature Granulocyte Percent A 7.6 % (0-0.5); Lymphocytes Absolute Auto 1.21 K/mm3 (0.9-3.2); Lymphocytes Percent Auto 10.5 % (18.3-44.2); Mean Corpuscular HGB Conc 33.2 g/dl (32-36); Mean Corpuscular Hemoglobin 31.2 pg (26-34); Mean Platelet Volume 10.4 fl (7.4-10.4); Monocytes Absolute Auto 0.9 K/mm3 (0.1-0.6); Monocytes Percent Auto 7.9 % (2.6-8.5); Neutrophils Percent Auto 70.1 % (45.5-73.1); Platelet Count Result 382 k/mm3 (150-375); Red Cell Distribution Width 12.3 % (11.5-14.5); White Blood Count 11.5 K/mm3 (4.5-10.0)
[2024-07-14 06:46] LABS: Alanine Aminotransferase 18 U/L (6-50); Albumin Level 3.3 g/dL (3.5-5.1); Alkaline Phosphatase 61 U/L (38-126); Anion Gap 4 mmol/L (4-12); Aspartate Amino Transferase 23 U/L (17-59); Bilirubin,Total 0.3 mg/dL (0.2-1.3); Blood Urea Nitrogen 13 mg/dL (9-20); Carbon Dioxide 31 mmol/L (22-30); Chloride 100 mmol/L (98-107); Estimated CRCL calculation 132 ml/min; Estimated Glomerular Filt Rate > 60; Glucose 143 mg/dL (65-110); Lipase 1586 U/L (23-300); Phosphorus 4.1 mg/dL (2.5-4.5); Potassium 4.1 mmol/L (3.4-5.0); Sodium 135 mmol/L (137-145)
[2024-07-14] MEDS: CENTRAL LINE FLUSH 10 ML IV PUSH ×3 (07:30→22:00)
[2024-07-14] MEDS: buPROPion HCL XL (24 HR) 150 MG TABCR 300 MG PO (08:42)
[2024-07-14] MEDS: busPIRone HCL 10 MG TABLET 30 MG PO (08:44)
[2024-07-14] MEDS: THIAMINE HCL 200 MG/2 ML VIAL 100 MG IV PUSH (08:46)
[2024-07-14] MEDS: ENOXAPARIN 40 MG/0.4 ML SYRINGE SUB-Q (08:46)
[2024-07-14] MEDS: PANTOPRAZOLE SODIUM IV 40 MG VIAL IV PUSH (08:47)
[2024-07-14] MEDS: FLUTICASONE PROPIONATE 0.05% NA SPR 16 GM BTL (*BKC) 2 SPRAY NASAL (08:50)
[2024-07-14] MEDS: FOLIC ACID 1 MG/0.2 ML INJ IV PUSH (09:00)
[2024-07-14] MEDS: AMINO ACIDS 5%/D15W/E-LYTES/CA 1,000 ML with MULTIVITAMINS-12 INJ VIAL 1 1.25 ML, MULTI... 80 ML IV CONT ×2 (10:08→22:42)
[2024-07-14] MEDS: FAT EMULSIONS IV 20% 250 ML 20.8 ML IVPB (10:09)
[2024-07-14] MEDS: IBUPROFEN IV 800 MG/200 ML 800 MG/200 ML BAG 400 MG IVPB (11:05)
[2024-07-14 11:44] LABS: Glucose Point of Care 122 mg/dl (65-105)
--- NOTE | 2024-07-14 12:24 | P.PN_ITS ---
Progress Note: A&P Assessment and Plan (1) Protein-calorie malnutrition, moderate: Code(s): E44.0 - Moderate protein-calorie malnutrition Status: Acute Assessment and Plan: Will continue with TPN today. If he is tolerating diet advancing tomorrow then we will start to wean back and dial down the TPN. (2) Superficial postoperative wound infection: Code(s): T81.49XA - Infection following a procedure, other surgical site, initial encounter Status: Acute Assessment and Plan: Wound is draining. Will removed the iodoform gauze and just cover the area with dry gauze. If he continues to drain purulent fluid or has spreading redness then will open up the subcutaneous portion of the midline incision. (3) Small bowel perforation: Code(s): K63.1 - Perforation of intestine (nontraumatic) Status: Acute Assessment and Plan: Continues to heal well. White blood cell count is down to 11,500. No fever. Function is returning has had a bowel movement. Will remove the nasogastric tube today. Started on clear liquids. Subjective Date/time seen: 07/14/24 12:24 Interval history: Patient continues to improve. Had a bowel movement last night. WBC is down to 11,500. Slightly decreased from yesterday. No fever. Exam GI: Other: Soft and nondistended. Midline incision has multiple areas around the midline was small draining areas. The areas were wicked with quarter-inch iodoform gauze. Still some wounds but no spreading erythema. Objective Data Vital Signs Vital Signs: Vital Signs - 24 hr 07/13/24 16:00 07/13/24 20:00 07/13/24 23:32 Temperature 35.8 C L 36.5 C 36.3 C L Pulse Rate 84 82 73 Respiratory Rate 20 18 16 Blood Pressure 144/81 H 135/87 114/70 Pulse Oximetry 98 100 98 Oxygen Delivery 07/13/24 20:00 07/14/24 03:35 07/14/24 08:00 Temperature 36.2 C L 36.1 C L Pulse Rate 70 87 Respiratory Rate 16 20 Blood Pressure 118/76 130/89 Pulse Oximetry 99 98 Oxygen Delivery Room Air 07/14/24 08:40 Temperature Pulse Rate Respiratory Rate Blood Pressure Pulse Oximetry Oxygen Delivery Room Air Intake/Output Intake/Output: Intake & Output 1107/12/24 07/13/24 07/14/24 23:59 23:59 23:59 23:59 Intake Total 4230.0 4865.0 3862.5 1452.5 Output Total 500 2450 2300 600 Balance 3730.0 2415.0 1562.5 852.5 Meds/Results Medications: Active Medications Generic Name Dose Route Start Last Admin Trade Name Freq PRN Reason Stop Dose Admin Alteplase, Recombinant 2 mg 07/13/24 03:41 07/13/24 05:00 Alteplase 2 Mg Vial (Cathflo) IV PUSH 2 mg ONCE PRN Administration Line Occlusion Amitriptyline HCl 25 mg 07/06/24 21:00 07/13/24 20:09 Amitriptyline Hcl 25 Mg Tablet PO 25 mg HS EMILE Administration Bupropion HCl 300 mg 07/06/24 10:10 07/14/24 08:42 Bupropion Hcl Xl (24 Hr) 150 Mg Tabcr PO 300 mg DAILY EMILE Administration Buspirone HCl 5 mg 07/07/24 21:00 07/13/24 20:09 Buspirone Hcl 5 Mg Tablet BY MOUTH 5 mg HS EMILE Administration Buspirone HCl 30 mg 07/06/24 10:25 07/14/24 08:44 Buspirone Hcl 10 Mg Tablet PO 30 mg DAILY EMILE Administration Buspirone HCl 10 mg 07/06/24 21:00 07/13/24 20:09 Buspirone Hcl 10 Mg Tablet BY MOUTH 10 mg HS EMILE Administration Dextrose 12.5 gm 07/02/24 14:18 Dextrose 50% 25 Gm/50 Ml Syringe IV PUSH PRN PRN Hypoglycemia Protocol Enoxaparin Sodium 40 mg 07/12/24 09:00 07/14/24 08:46 Enoxaparin 40 Mg/0.4 Ml Syringe SUB-Q 40 mg DAILY EMILE Administration Fluticasone Propionate 2 spray 07/06/24 10:10 07/14/24 08:50 Fluticasone Propionate 0.05% Na Spr 16 Gm Btl (*Bkc) NASAL 2 spray DAILY EMILE Administration Folic Acid 1 mg 07/03/24 09:00 07/14/24 09:00 Folic Acid 1 Mg/0.2 Ml Inj IV PUSH 1 mg QAM EMILE Administration Glucagon 1 mg 07/02/24 14:18 Glucagon For Inj 1 Mg Vial IM PRN PRN Hypoglycemia Protocol Guaifenesin 200 mg 07/08/24 21:21 07/08/24 21:31 Guaifenesin 200 Mg/10 Ml Udc PO 200 mg Q4H PRN Administration Cough Dextrose 1,000 mls @ 100 mls/hr 07/02/24 14:18 Dextrose 5% 1,000 Ml IVPB PRN PRN Hypoglycemia Protocol Levofloxacin/Dextrose 750 mg in 150 mls @ 100 mls/hr 07/08/24 02:00 07/14/24 01:51 Levaquin 750 Mg/D5w 150 Ml IVPB 07/14/24 23:59 100 mls/hr Q24H EMILE Administration Dextrose 1,000 mls @ 50 mls/hr 07/07/24 10:08 Dextrose 10% IV CONT .Q20H PRN if PN is interrupted Multivitamins 1.25 ml/ 1,002.5 mls @ 80 mls/hr 07/07/24 14:00 07/14/24 10:08 Multivitamins 1.25 ml/ Amino IV CONT 80 mls/hr Acids/Electrolytes/Dextrose .[id number] EMILE Administration Protocol Fat Emulsion Intravenous 250 mls @ 20.833 mls/hr 07/07/24 14:00 07/14/24 10:09 Lipids 20% IVPB 20.8 mls/hr Q24H EMILE Administration Potassium Chloride 60 meq/ 1,030 mls @ 100 mls/hr 07/09/24 10:00 07/13/24 23:18 Dextrose/Sodium Chloride IV CONT 100 mls/hr .[id number] EMILE Administration Ibuprofen 800 mg in 200 mls @ 400 mls/hr 07/10/24 14:36 07/14/24 11:29 Caldolor 800 Mg/200 Ml IVPB Infused Q6H PRN Infusion Pain Rated 1-3 Insulin Aspart 2 - 5 units 07/02/24 18:00 07/14/24 11:53 Insulin Aspart (*Bkc) 100 Units/Ml SUB-Q Not Given Q6HR EMILE Protocol Lorazepam 1 mg 07/05/24 15:49 07/14/24 03:00 Lorazepam Inj (*Crx) 2 Mg/Ml Vial IV PUSH 1 mg Q6H PRN Administration Anxiety Miscellaneous Information 1 each 07/14/24 00:01 Clinamix Needs To Be Renewed Or It Will Automatically Discontinue. XX 08/13/24 00:00 CLARIFY EMILE Morphine Sulfate 2 mg 07/10/24 10:20 07/14/24 11:04 Morphine Sulfate (*Crx) 2 Mg/Ml Inj IV PUSH 2 mg Q2H PRN Administration Pain Rated 4-6 Morphine Sulfate 4 mg 07/10/24 10:20 07/13/24 20:09 Morphine Sulfate (*Crx) 4 Mg/Ml Inj IV PUSH 4 mg Q2H PRN Administration Pain Rated 7-10 Naloxone HCl 0.1 mg 07/07/24 09:20 07/10/24 00:02 Naloxone Hcl 0.4 Mg/Ml Vial IV PUSH 0.1 mg Q5MIN PRN Administration Opioid Reversal Desvenlafaxine 1 each 07/07/24 09:00 07/14/24 08:45 Succinate 25 Mg Tab PO 08/06/24 08:59 1 each Er DAILY EMILE Administration Pantoprazole Sodium 40 mg 07/05/24 16:00 07/14/24 08:47 Pantoprazole Sodium Iv 40 Mg Vial IV PUSH 40 mg QAM EMILE Administration Phenol 1 spray 07/02/24 12:12 07/13/24 08:41 Phenol/Sod Pheno [place] (*Bkc) MUCOUS MEM 1 spray PRN PRN Administration Sore Throat Prochlorperazine Edisylate 10 mg 07/06/24 21:57 07/13/24 08:39 Prochlorperazine Edisylate 10 Mg/2 Ml Vial IV PUSH 10 mg Q6H PRN Administration Nausea And Vomiting Sodium Chloride 10 ml 07/07/24 14:09 Central Line Flush IV PUSH PRN PRN with TPN bag changes Sodium Chloride 20 ml 07/07/24 14:09 Central Line Flush IV PUSH PRN PRN after blood draws Sodium Chloride 10 ml 07/07/24 22:00 07/14/24 07:30 Central Line Flush IV PUSH 10 ml Q8HR EMILE Administration Thiamine HCl 100 mg 07/03/24 09:00 07/14/24 08:46 Thiamine Hcl 200 Mg/2 Ml Vial IV PUSH 100 mg DAILY EMILE Administration Radiology Results: ITS Impressions Small Bowel X-Ray 07/05/24 18:48 IMPRESSION: Delayed passage into the colon with reduction in caliber of the visualized small bowel, markedly distended on initial evaluation. Chest X-Ray 07/07/24 14:34 IMPRESSION: 1. Stable airspace opacities in the lower lung zones, consistent with atelectasis versus pneumonia. Abdomen/Pelvis CT 07/10/24 08:46 IMPRESSION: 1. Bilateral pneumonia. 2. Small pleural effusions. 3. Dilated small bowel, likely adynamic ileus. 4. Wall thickening of small bowel, consistent with enteritis. Abdomen X-Ray 07/14/24 09:53 IMPRESSION: Postoperative examination; nonspecific bowel gas pattern without apparent obstruction NG tube in gastric fundus Labs Labs: Laboratory Results - last 24 hr 07/13/24 07/13/24 07/14/24 17:43 23:18 05:09 WBC RBC Hgb Hct MCV MCH MCHC RDW Plt Count MPV Immature Gran % (Auto) Neut % (Auto) Lymph % (Auto) [place] % (Auto) Eos % (Auto) Baso % (Auto) Lymph # (Auto) [place] # (Auto) Eos # (Auto) Baso # (Auto) Abs Immat Gran (auto) Absolute Neuts (auto) Absolute Nucleated RBC Nucleated RBC % Sodium Potassium Chloride Carbon Dioxide Anion Gap BUN Creatinine Estim Creat Clear Calc Estimated GFR Glucose POC Capillary Glucose 123 H 100 133 H Calcium Phosphorus Magnesium Total Bilirubin AST ALT Alkaline Phosphatase Total Protein Albumin Lipase 07/14/24 07/14/24 06:09 11:40 WBC 11.5 H RBC 4.20 L Hgb 13.1 L Hct 39.5 L MCV 94.0 MCH 31.2 MCHC 33.2 RDW 12.3 Plt Count 382 H MPV 10.4 Immature Gran % (Auto) 7.6 H Neut % (Auto) 70.1 Lymph % (Auto) 10.5 L [place] % (Auto) 7.9 Eos % (Auto) 3.0 Baso % (Auto) 0.9 Lymph # (Auto) 1.21 [place] # (Auto) 0.9 H Eos # (Auto) 0.3 Baso # (Auto) 0.1 Abs Immat Gran (auto) 0.87 H Absolute Neuts (auto) 8.0 H Absolute Nucleated RBC 0.000 Nucleated RBC % 0.0 Sodium 135 L Potassium 4.1 Chloride 100 Carbon Dioxide 31 H Anion Gap 4 BUN 13 Creatinine 0.80 Estim Creat Clear Calc 132 Estimated GFR > 60 Glucose 143 H POC Capillary Glucose 122 H Calcium 9.0 Phosphorus 4.1 Magnesium 2.0 Total Bilirubin 0.3 AST 23 ALT 18 Alkaline Phosphatase 61 Total Protein 7.0 Albumin 3.3 L Lipase 1586 H
--- NOTE | 2024-07-14 12:56 | PCNFU ---
Nutrition Follow-Up Complete: Altered GI function as related to Small Bowel Obstruction as related to NPO/NGT goal: Meet estimated nutritional needs Patient is progressing towards goal. We will continue current goal. Pt current nutrition is TPN at 80 ml/hr, starting Clear liquids. Last recorded weight is 101.9 kg, up from 94.6 kg on admit. Bowel Motility:+BM reported 07/14 Labs Reviewed: Glu 143, Na 135, Alb 3.3 Meds Noted: Clinimix E 12/28 at 80 ml/hr with 20% Lipid Emulsion,Folic Acid, Thiamine, Protonix. Skin: WNL Additional Notes:Patient remains on TPN at 80 ml/hr providing 1863 kcal/98 gm protein. Plans for diet to advance to clear liquids today if able to tolerate PO, MD plans to wean TPN. Diet supplements of Ensure Compact TID starting at dinner, providing an additional 220 kcal and 9 gm protein. Diet order is appropriate at this time. Will monitor weight, labs, skin, diet orders, meds every Wednesday and Wednesday.
--- NOTE | 2024-07-14 13:45 | P.PNIM_ITS ---
Progress Note: A&P Assessment and Plan (1) Sepsis: Code(s): A41.9 - Sepsis, unspecified organism Status: Acute Assessment and Plan: Patient presents with abdominal pain and met SIRS criteria on admission with t achycardic, tachypnea, leukocytosis. UCx negative. BCx NGTD. CXR showed bilateral lower lobe opacities . CT A/P showing no acute infectious process. Infectious etiology unlikely. to complete 7 days of Levaquin, 02/19 Continue to monitor (2) Complete obstruction of small intestine: Code(s): K56.601 - Complete intestinal obstruction, unspecified as to cause Status: Deleted Assessment and Plan: Patient had perforated Meckel's diverticulum in 2008 resulting in peritonitis and subsequent peritoneal scarring. He has a hx of SBO since with 2 small bowel resections for adhesions but no episodes for about 6 yrs. He did have a left inguinal surgery repair about [address] abd/pelvis 07/02 reviewed Bowel having bowel movement Gen Surg following, advance diet per surgery. (3) Acute kidney injury: Code(s): N17.9 - Acute kidney failure, unspecified Status: Resolved Assessment and Plan: Resolved. Cr 5.8 with BUN 38. No prior labs to compare but no hx of CKD. With IV fluids, BUN/Cr normalized. CT A/P showing normal appearing kidneys and bladder [place] TYLER related to dehydration Creatinine normal, echo resolved. Continue monitoring. (4) Alcohol withdrawal delirium: Code(s): F10.931 - Alcohol use, unspecified with withdrawal delirium Status: Acute Assessment and Plan: Patient with evidence of severe withdrawals on admission. CIWA protocol started. Patient became much improved. Restraints and sitter were discontinued. CIWA scose down to 0-2 range Educated about the benefits of abstaining from alcohol Family in the room mention patient was talking about fentanyl. Patient denies taking fentanyl prior to admission. No UDS was performed. (5) Pneumonia: Code(s): J18.9 - Pneumonia, unspecified organism Status: Acute Assessment and Plan: CXR showed bilateral Lower lobes opacities Day 02/19 Levaquin monitor cultures Plan DVT prophylaxis -subQ Lovenox. Code status - full Subjective Date/time seen: 07/14/24 13:45 Interval history: patient had bowel movement last night Surgery to advance diet Review of Systems Review of Systems: All other systems reviewed and negative except as noted in the history above. All systems reviewed & are unremarkable except as noted in HPI and below ROS unobtainable: Yes unobtainable due to mental status Exam Narrative: Patient is comfortable, NAD HEENT: eyes are clear and none icteric, NG tube in place LUNGS:CTA HEART: RR S1S2 ABD: BS+ faint and diffusely tender Lower extremities: no edema SKIN: nonjaundiced Neuro: grossly intact. Objective Data Vital Signs Vital Signs: Vital Signs - 24 hr 07/13/24 16:00 07/13/24 20:00 07/13/24 23:32 Temperature 96.5 F L 97.7 F 97.3 F L Pulse Rate 84 82 73 Respiratory Rate 20 18 16 Blood Pressure 144/81 H 135/87 114/70 Pulse Oximetry 98 100 98 Oxygen Delivery 07/13/24 20:00 07/14/24 03:35 07/14/24 08:00 Temperature 97.2 F L 97.0 F L Pulse Rate 70 87 Respiratory Rate 16 20 Blood Pressure 118/76 130/89 Pulse Oximetry 99 98 Oxygen Delivery Room Air 07/14/24 08:40 07/14/24 12:00 Temperature 96.4 F L Pulse Rate 76 Respiratory Rate 20 Blood Pressure 134/73 Pulse Oximetry 98 Oxygen Delivery Room Air Intake/Output Intake/Output: Intake & Output 07/11/24 07/12/24 07/13/24 07/14/24 23:59 23:59 23:59 23:59 Intake Total 4230.0 4865.0 3862.5 1452.5 Output Total 500 2450 2300 600 Balance 3730.0 2415.0 1562.5 852.5 Meds/Results Medications: Active Medications Generic Name Dose Route Start Last Admin Trade Name Freq PRN Reason Stop Dose Admin Alteplase, Recombinant 2 mg 07/13/24 03:41 07/13/24 05:00 Alteplase 2 Mg Vial (Cathflo) IV PUSH 2 mg ONCE PRN Administration Line Occlusion Amitriptyline HCl 25 mg 07/06/24 21:00 07/13/24 20:09 Amitriptyline Hcl 25 Mg Tablet PO 25 mg HS EMILE Administration Bupropion HCl 300 mg 07/06/24 10:10 07/14/24 08:42 Bupropion Hcl Xl (24 Hr) 150 Mg Tabcr PO 300 mg DAILY EMILE Administration Buspirone HCl 5 mg 07/07/24 21:00 07/13/24 20:09 Buspirone Hcl 5 Mg Tablet BY MOUTH 5 mg HS EMILE Administration Buspirone HCl 30 mg 07/06/24 10:25 07/14/24 08:44 Buspirone Hcl 10 Mg Tablet PO 30 mg DAILY EMILE Administration Buspirone HCl 10 mg 07/06/24 21:00 07/13/24 20:09 Buspirone Hcl 10 Mg Tablet BY MOUTH 10 mg HS EMILE Administration Dextrose 12.5 gm 07/02/24 14:18 Dextrose 50% 25 Gm/50 Ml Syringe IV PUSH PRN PRN Hypoglycemia Protocol Enoxaparin Sodium 40 mg 07/12/24 09:00 07/14/24 08:46 Enoxaparin 40 Mg/0.4 Ml Syringe SUB-Q 40 mg DAILY EMILE Administration Fluticasone Propionate 2 spray 07/06/24 10:10 07/14/24 08:50 Fluticasone Propionate 0.05% Na Spr 16 Gm Btl (*Bkc) NASAL 2 spray DAILY EMILE Administration Folic Acid 1 mg 07/03/24 09:00 07/14/24 09:00 Folic Acid 1 Mg/0.2 Ml Inj IV PUSH 1 mg QAM EMILE Administration Glucagon 1 mg 07/02/24 14:18 Glucagon For Inj 1 Mg Vial IM PRN PRN Hypoglycemia Protocol Guaifenesin 200 mg 07/08/24 21:21 07/08/24 21:31 Guaifenesin 200 Mg/10 Ml Udc PO 200 mg Q4H PRN Administration Cough Dextrose 1,000 mls @ 100 mls/hr 07/02/24 14:18 Dextrose 5% 1,000 Ml IVPB PRN PRN Hypoglycemia Protocol Levofloxacin/Dextrose 750 mg in 150 mls @ 100 mls/hr 07/08/24 02:00 07/14/24 01:51 Levaquin 750 Mg/D5w 150 Ml IVPB 07/14/24 23:59 100 mls/hr Q24H EMILE Administration Dextrose 1,000 mls @ 50 mls/hr 07/07/24 10:08 Dextrose 10% IV CONT .Q20H PRN if PN is interrupted Multivitamins 1.25 ml/ 1,002.5 mls @ 80 mls/hr 07/07/24 14:00 07/14/24 10:08 Multivitamins 1.25 ml/ Amino IV CONT 80 mls/hr Acids/Electrolytes/Dextrose .[id number] EMILE Administration Protocol Fat Emulsion Intravenous 250 mls @ 20.833 mls/hr 07/07/24 14:00 07/14/24 10:09 Lipids 20% IVPB 20.8 mls/hr Q24H EMILE Administration Potassium Chloride 60 meq/ 1,030 mls @ 100 mls/hr 07/09/24 10:00 07/13/24 23:18 Dextrose/Sodium Chloride IV CONT 100 mls/hr .[id number] EMILE Administration Ibuprofen 800 mg in 200 mls @ 400 mls/hr 07/10/24 14:36 07/14/24 11:29 Caldolor 800 Mg/200 Ml IVPB Infused Q6H PRN Infusion Pain Rated 1-3 Insulin Aspart 2 - 5 units 07/02/24 18:00 07/14/24 11:53 Insulin Aspart (*Bkc) 100 Units/Ml SUB-Q Not Given Q6HR [facility] Protocol Lorazepam 1 mg 07/05/24 15:49 07/14/24 03:00 Lorazepam Inj (*Crx) 2 Mg/Ml Vial IV PUSH 1 mg Q6H PRN Administration Anxiety Miscellaneous Information 1 each 07/14/24 00:01 Clinamix Needs To Be Renewed Or It Will Automatically Discontinue. XX 08/13/24 00:00 CLARIFY [facility] Morphine Sulfate 2 mg 07/10/24 10:20 07/14/24 11:04 Morphine Sulfate (*Crx) 2 Mg/Ml Inj IV PUSH 2 mg Q2H PRN Administration Pain Rated 4-6 Morphine Sulfate 4 mg 07/10/24 10:20 07/13/24 20:09 Morphine Sulfate (*Crx) 4 Mg/Ml Inj IV PUSH 4 mg Q2H PRN Administration Pain Rated 7-10 Naloxone HCl 0.1 mg 07/07/24 09:20 07/10/24 00:02 Naloxone Hcl 0.4 Mg/Ml Vial IV PUSH 0.1 mg Q5MIN PRN Administration Opioid Reversal Desvenlafaxine 1 each 07/07/24 09:00 07/14/24 08:45 Succinate 25 Mg Tab PO 08/06/24 08:59 1 each Er DAILY EMILE Administration Pantoprazole Sodium 40 mg 07/05/24 16:00 07/14/24 08:47 Pantoprazole Sodium Iv 40 Mg Vial IV PUSH 40 mg QAM EMILE Administration Phenol 1 spray 07/02/24 12:12 07/13/24 08:41 Phenol/Sod Pheno [place] Mendez (*Bkc) MUCOUS MEM 1 spray PRN PRN Administration Sore Throat Prochlorperazine Edisylate 10 mg 07/06/24 21:57 07/13/24 08:39 Prochlorperazine Edisylate 10 Mg/2 Ml Vial IV PUSH 10 mg Q6H PRN Administration Nausea And Vomiting Sodium Chloride 10 ml 07/07/24 14:09 Central Line Flush IV PUSH PRN PRN with TPN bag changes Sodium Chloride 20 ml 07/07/24 14:09 Central Line Flush IV PUSH PRN PRN after blood draws Sodium Chloride 10 ml 07/07/24 22:00 07/14/24 07:30 Central Line Flush IV PUSH 10 ml Q8HR EMILE Administration Thiamine HCl 100 mg 07/03/24 09:00 07/14/24 08:46 Thiamine Hcl 200 Mg/2 Ml Vial IV PUSH 100 mg DAILY EMILE Administration Radiology Results: ITS Impressions Small Bowel X-Ray 07/05/24 18:48 IMPRESSION: Delayed passage into the colon with reduction in caliber of the visualized small bowel, markedly distended on initial evaluation. Chest X-Ray 07/07/24 14:34 IMPRESSION: 1. Stable airspace opacities in the lower lung zones, consistent with atelectasis versus pneumonia. Abdomen/Pelvis CT 07/10/24 08:46 IMPRESSION: 1. Bilateral pneumonia. 2. Small pleural effusions. 3. Dilated small bowel, likely adynamic ileus. 4. Wall thickening of small bowel, consistent with enteritis. Abdomen X-Ray 07/14/24 09:53 IMPRESSION: Postoperative examination; nonspecific bowel gas pattern without apparent obstruction NG tube in gastric fundus Labs Labs: Laboratory Results - last 24 hr 07/13/24 07/13/24 07/14/24 17:43 23:18 05:09 WBC RBC Hgb Hct MCV MCH MCHC RDW Plt Count MPV Immature Gran % (Auto) Neut % (Auto) Lymph % (Auto) [place] % (Auto) Eos % (Auto) Baso % (Auto) Lymph # (Auto) [place] # (Auto) Eos # (Auto) Baso # (Auto) Abs Immat Gran (auto) Absolute Neuts (auto) Absolute Nucleated RBC Nucleated RBC % Sodium Potassium Chloride Carbon Dioxide Anion Gap BUN Creatinine Estim Creat Clear Calc Estimated GFR Glucose POC Capillary Glucose 123 H 100 133 H Calcium Phosphorus Magnesium Total Bilirubin AST ALT Alkaline Phosphatase Total Protein Albumin Lipase 07/14/24 07/14/24 06:09 11:40 WBC 11.5 H RBC 4.20 L Hgb 13.1 L Hct 39.5 L MCV 94.0 MCH 31.2 MCHC 33.2 RDW 12.3 Plt Count 382 H MPV 10.4 Immature Gran % (Auto) 7.6 H Neut % (Auto) 70.1 Lymph % (Auto) 10.5 L [place] % (Auto) 7.9 Eos % (Auto) 3.0 Baso % (Auto) 0.9 Lymph # (Auto) 1.21 [place] # (Auto) 0.9 H Eos # (Auto) 0.3 Baso # (Auto) 0.1 Abs Immat Gran (auto) 0.87 H Absolute Neuts (auto) 8.0 H Absolute Nucleated RBC 0.000 Nucleated RBC % 0.0 Sodium 135 L Potassium 4.1 Chloride 100 Carbon Dioxide 31 H Anion Gap 4 BUN 13 Creatinine 0.80 Estim Creat Clear Calc 132 Estimated GFR > 60 Glucose 143 H POC Capillary Glucose 122 H Calcium 9.0 Phosphorus 4.1 Magnesium 2.0 Total Bilirubin 0.3 AST 23 ALT 18 Alkaline Phosphatase 61 Total Protein 7.0 Albumin 3.3 L Lipase 1586 H Quality VTE Prophylaxis VTE prophylaxis: mechanical ordered
[2024-07-14] MEDS: PROCHLORPERAZINE EDISYLATE 10 MG/2 ML VIAL IV PUSH ×2 (17:01→22:59)
[2024-07-14 17:04] LABS: Triglycerides 169 mg/dL (<150)
[2024-07-14 17:43] LABS: Glucose Point of Care 107 mg/dl (65-105)
[2024-07-14] MEDS: AMITRIPTYLINE HCL 25 MG TABLET PO (20:19)
[2024-07-14] MEDS: busPIRone HCL 10 MG TABLET BY MOUTH (20:19)
[2024-07-14] MEDS: busPIRone HCL 5 MG TABLET BY MOUTH (20:19)
[2024-07-14 23:39] LABS: Glucose Point of Care 92 mg/dl (65-105)
[2024-07-15] MEDS: POTASSIUM CHLORIDE IV CONT ×2 (01:56→20:39)
[2024-07-15] MEDS: DEXTROSE IV CONT ×2 (01:56→20:39)
[2024-07-15] MEDS: SOD CHL IV CONT ×2 (01:56→20:39)
[2024-07-15] MEDS: MORPHINE SULFATE (*CRX) 2 MG/ML INJ IV PUSH ×5 (01:57→14:42)
[2024-07-15] MEDS: LORazepam INJ (*CRX) 2 MG/ML VIAL 1 MG IV PUSH ×2 (03:50→10:38)
[2024-07-15 03:51] VITALS: BP 105/59; PULSE 71; RESP 18; TEMP 36.3; O2SAT 98
[2024-07-15] MEDS: ALTEPLASE 2 MG VIAL (CATHFLO) IV PUSH (05:36)
[2024-07-15 05:57] LABS: Glucose Point of Care 103 mg/dl (65-105)
[2024-07-15] MEDS: CENTRAL LINE FLUSH 10 ML IV PUSH ×3 (06:44→20:55)
[2024-07-15 07:24] LABS: Basophils Absolute Auto 0.2 K/mm3 (0.0-0.1); Basophils Percent Auto 1.7 % (0.2-1.2); Eosinophils Absolute Auto 0.3 K/mm3 (0-0.3); Eosinophils Percent Auto 2.6 % (0-4.4); Hematocrit 42.3 % (42.0-52.0); Hemoglobin 13.7 g/dL (14.0-18.0); Immature Granulocyte Absolute 0.77 K/mm3 (0.00-0.031); Immature Granulocyte Percent A 7.3 % (0-0.5); Lymphocytes Absolute Auto 1.48 K/mm3 (0.9-3.2); Lymphocytes Percent Auto 14.1 % (18.3-44.2); Mean Corpuscular HGB Conc 32.4 g/dl (32-36); Mean Corpuscular Hemoglobin 30.7 pg (26-34); Mean Corpuscular Volume 94.8 fl (80-100); Mean Platelet Volume 10.3 fl (7.4-10.4); Monocytes Percent Auto 9.5 % (2.6-8.5); Neutrophils Absolute Auto 6.8 K/mm3 (1.3-6.7); Neutrophils Percent Auto 64.8 % (45.5-73.1); Platelet Count Result 491 k/mm3 (150-375); Red Blood Count 4.46 M/mm3 (4.6-6.20); Red Cell Distribution Width 12.2 % (11.5-14.5); White Blood Count 10.5 K/mm3 (4.5-10.0)
[2024-07-15 07:45] LABS: Alanine Aminotransferase 25 U/L (6-50); Albumin Level 3.5 g/dL (3.5-5.1); Alkaline Phosphatase 66 U/L (38-126); Anion Gap 3 mmol/L (4-12); Aspartate Amino Transferase 31 U/L (17-59); Bilirubin,Total 0.5 mg/dL (0.2-1.3); Blood Urea Nitrogen 14 mg/dL (9-20); Calcium 9.3 mg/dL (8.4-10.2); Carbon Dioxide 32 mmol/L (22-30); Chloride 101 mmol/L (98-107); Estimated CRCL calculation 107 ml/min; Estimated Glomerular Filt Rate > 60; Glucose 97 mg/dL (65-110); Lipase 1803 U/L (23-300); Magnesium 2.1 mg/dL (1.6-2.3); Potassium 4.7 mmol/L (3.4-5.0); Sodium 136 mmol/L (137-145)
[2024-07-15 07:56] LABS: Glucose Point of Care 91 mg/dl (65-105)
[2024-07-15 08:00] VITALS: PULSE 71; RESP 18; O2SAT 98
[2024-07-15] MEDS: busPIRone HCL 10 MG TABLET 30 MG PO (08:11)
[2024-07-15] MEDS: buPROPion HCL XL (24 HR) 150 MG TABCR 300 MG PO (08:11)
[2024-07-15] MEDS: ENOXAPARIN 40 MG/0.4 ML SYRINGE SUB-Q (08:11)
[2024-07-15] MEDS: FLUTICASONE PROPIONATE 0.05% NA SPR 16 GM BTL (*BKC) 2 SPRAY NASAL (08:12)
[2024-07-15] MEDS: FOLIC ACID 1 MG/0.2 ML INJ IV PUSH (08:12)
[2024-07-15] MEDS: PANTOPRAZOLE SODIUM IV 40 MG VIAL IV PUSH (08:13)
[2024-07-15] MEDS: THIAMINE HCL 200 MG/2 ML VIAL 100 MG IV PUSH (08:13)
[2024-07-15 09:10] VITALS: BP 112/75; PULSE 92; RESP 12; TEMP 36.5; O2SAT 99
--- NOTE | 2024-07-15 11:06 | PM.IMPN ---
Progress Note: A&P Assessment and Plan (1) Sepsis: Code(s): A41.9 - Sepsis, unspecified organism Status: Acute Assessment and Plan: Patient presents with abdominal pain and met SIRS criteria on admission with tachycardic, tachypnea, leukocytosis. UCx negative. BCx NGTD. CXR showed bilateral lower lobe opacities . CT A/P showing no acute infectious process. Infectious etiology unlikely. 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 He has a hx of SBO since with 2 small bowel resections for adhesions but no episodes for about 6 yrs. He did have a left inguinal surgery repair about [address] abd/pelvis 07/02 reviewed Bowel having bowel movement On clears, advance diet per surgery Gen Surg following (3) Acute kidney injury: Code(s): N17.9 - Acute kidney failure, unspecified Status: Resolved Assessment and Plan: Resolved. Cr 5.8 with BUN 38. No prior labs to compare but no hx of CKD. With IV fluids, BUN/Cr normalized. CT A/P showing normal appearing kidneys and bladder [place] TYLER related to dehydration Creatinine normal, echo resolved. Continue monitoring. (4) Alcohol withdrawal delirium: Code(s): F10.931 - Alcohol use, unspecified with withdrawal delirium Status: Acute Assessment and Plan: Patient with evidence of severe withdrawals on admission. CIWA protocol started. Patient became much improved. Restraints and sitter were discontinued. CIWA scose down to 0-2 range Educated about the benefits of abstaining from alcohol Family in the room mention patient was talking about fentanyl. Patient denies taking fentanyl prior to admission. No UDS was performed. (5) Pneumonia: Code(s): J18.9 - Pneumonia, unspecified organism Status: Acute Assessment and Plan: CXR showed bilateral Lower lobes opacities Day 7/7 Levaquin, completed abx monitor cultures Plan DVT prophylaxis -subQ Lovenox. Code status - full Subjective Date/time seen: 07/15/24 11:06 Interval history: patient had bowel movement last night on clears, advance diet as directed by surgery Review of Systems Review of Systems: All other systems reviewed and negative except as noted in the history above. All systems reviewed & are unremarkable except as noted in HPI and below ROS unobtainable: Yes unobtainable due to mental status Exam Narrative: Patient is comfortable, NAD HEENT: eyes are clear and none icteric, NG tube in place LUNGS:CTA HEART: RR S1S2 ABD: BS+ faint and diffusely tender Lower extremities: no edema SKIN: nonjaundiced Neuro: grossly intact. Objective Data Vital Signs Vital Signs: Vital Signs - 24 hr 07/14/24 12:00 07/14/24 16:00 07/14/24 19:10 Temperature 96.4 F L 93.2 F L 98.1 F Pulse Rate 76 79 Respiratory Rate 20 20 Blood Pressure 134/73 122/69 Pulse Oximetry 98 99 Oxygen Delivery Fraction of Inspired Oxygen 07/14/24 19:57 07/14/24 23:45 07/14/24 20:00 Temperature 97.4 F L 98.5 F Pulse Rate 86 84 Respiratory Rate 16 18 Blood Pressure 114/81 107/64 Pulse Oximetry 100 99 Oxygen Delivery Room Air Fraction of Inspired Oxygen 07/15/24 03:51 07/15/24 08:00 07/15/24 09:10 Temperature 97.4 F L 97.7 F Pulse Rate 71 71 92 Respiratory Rate 18 18 12 Blood Pressure 105/59 L 112/75 Pulse Oximetry 98 98 99 Oxygen Delivery Room Air Fraction of Inspired Oxygen 21 Intake/Output Intake/Output: Intake & Output 07/12/24 07/13/24 07/14/24 07/15/24 23:59 23:59 23:59 23:59 Intake Total 4865.0 3862.5 3485.0 1150 Output Total 2450 2300 600 800 Balance 2415.0 1562.5 2885.0 350 Meds/Results Medications: Active Medications Generic Name Dose Route Start Last Admin Trade Name Freq PRN Reason Stop Dose Admin Alteplase, Recombinant 2 mg 07/13/24 03:41 07/15/24 05:36 Alteplase 2 Mg Vial (Cathflo) IV PUSH 2 mg ONCE PRN Administration Line Occlusion Amitriptyline HCl 25 mg 07/06/24 21:00 07/14/24 20:19 Amitriptyline Hcl 25 Mg Tablet PO 25 mg HS EMILE Administration Bupropion HCl 300 mg 07/06/24 10:10 07/15/24 08:11 Bupropion Hcl Xl (24 Hr) 150 Mg Tabcr PO 300 mg DAILY EMILE Administration Buspirone HCl 5 mg 07/07/24 21:00 07/14/24 20:19 Buspirone Hcl 5 Mg Tablet BY MOUTH 5 mg HS EMILE Administration Buspirone HCl 30 mg 07/06/24 10:25 07/15/24 08:11 Buspirone Hcl 10 Mg Tablet PO 30 mg DAILY EMILE Administration Buspirone HCl 10 mg 07/06/24 21:00 07/14/24 20:19 Buspirone Hcl 10 Mg Tablet BY MOUTH 10 mg HS EMILE Administration Dextrose 12.5 gm 07/02/24 14:18 Dextrose 50% 25 Gm/50 Ml Syringe IV PUSH PRN PRN Hypoglycemia Protocol Enoxaparin Sodium 40 mg 07/12/24 09:00 07/15/24 08:11 Enoxaparin 40 Mg/0.4 Ml Syringe SUB-Q 40 mg DAILY EMILE Administration Fluticasone Propionate 2 spray 07/06/24 10:10 07/15/24 08:12 Fluticasone Propionate 0.05% Na Spr 16 Gm Btl (*Bkc) NASAL 2 spray DAILY EMILE Administration Folic Acid 1 mg 07/03/24 09:00 07/15/24 08:12 Folic Acid 1 Mg/0.2 Ml Inj IV PUSH 1 mg QAM EMILE Administration Glucagon 1 mg 07/02/24 14:18 Glucagon For Inj 1 Mg Vial IM PRN PRN Hypoglycemia Protocol Guaifenesin 200 mg 07/08/24 21:21 07/08/24 21:31 Guaifenesin 200 Mg/10 Ml Udc PO 200 mg Q4H PRN Administration Cough Dextrose 1,000 mls @ 100 mls/hr 07/02/24 14:18 Dextrose 5% 1,000 Ml IVPB PRN PRN Hypoglycemia Protocol Dextrose 1,000 mls @ 50 mls/hr 07/07/24 10:08 Dextrose 10% IV CONT .Q20H PRN if PN is interrupted Multivitamins 1.25 ml/ 1,002.5 mls @ 80 mls/hr 07/07/24 14:00 07/14/24 22:42 Multivitamins 1.25 ml/ Amino IV CONT 80 mls/hr Acids/Electrolytes/Dextrose .[id number] EMILE Administration Protocol Fat Emulsion Intravenous 250 mls @ 20.833 mls/hr 07/07/24 14:00 07/14/24 10:09 Lipids 20% IVPB 20.8 mls/hr Q24H EMILE Administration Potassium Chloride 60 meq/ 1,030 mls @ 100 mls/hr 07/09/24 10:00 07/15/24 01:56 Dextrose/Sodium Chloride IV CONT 100 mls/hr .[id number] EMILE Administration Ibuprofen 800 mg in 200 mls @ 400 mls/hr 07/10/24 14:36 07/14/24 11:29 Caldolor 800 Mg/200 Ml IVPB Infused Q6H PRN Infusion Pain Rated 1-3 Insulin Aspart 2 - 5 units 07/02/24 18:00 07/15/24 06:44 Insulin Aspart (*Bkc) 100 Units/Ml SUB-Q Not Given Q6HR [facility] Protocol Lorazepam 1 mg 07/05/24 15:49 07/15/24 10:38 Lorazepam Inj (*Crx) 2 Mg/Ml Vial IV PUSH 1 mg Q6H PRN Administration Anxiety Miscellaneous Information 1 each 07/14/24 00:01 Clinamix Needs To Be Renewed Or It Will Automatically Discontinue. XX 08/13/24 00:00 CLARIFY [facility] Miscellaneous Information 1 each 07/15/24 00:01 Order Clarification XX 08/14/24 00:00 CLARIFY [facility] Morphine Sulfate 2 mg 07/10/24 10:20 07/15/24 10:39 Morphine Sulfate (*Crx) 2 Mg/Ml Inj IV PUSH 2 mg Q2H PRN Administration Pain Rated 4-6 Morphine Sulfate 4 mg 07/10/24 10:20 07/13/24 20:09 Morphine Sulfate (*Crx) 4 Mg/Ml Inj IV PUSH 4 mg Q2H PRN Administration Pain Rated 7-10 Naloxone HCl 0.1 mg 07/07/24 09:20 07/10/24 00:02 Naloxone Hcl 0.4 Mg/Ml Vial IV PUSH 0.1 mg Q5MIN PRN Administration Opioid Reversal Desvenlafaxine 1 each 07/07/24 09:00 07/15/24 08:13 Succinate 25 Mg Tab PO 08/06/24 08:59 1 each Er DAILY EMILE Administration Pantoprazole Sodium 40 mg 07/05/24 16:00 07/15/24 08:13 Pantoprazole Sodium Iv 40 Mg Vial IV PUSH 40 mg QAM EMILE Administration Phenol 1 spray 07/02/24 12:12 07/13/24 08:41 Phenol/Sod Pheno [place] (*Bkc) MUCOUS MEM 1 spray PRN PRN Administration Sore Throat Prochlorperazine Edisylate 10 mg 07/06/24 21:57 07/14/24 22:59 Prochlorperazine Edisylate 10 Mg/2 Ml Vial IV PUSH 10 mg Q6H PRN Administration Nausea And Vomiting Sodium Chloride 10 ml 07/07/24 14:09 Central Line Flush IV PUSH PRN PRN with TPN bag changes Sodium Chloride 20 ml 07/07/24 14:09 Central Line Flush IV PUSH PRN PRN after blood draws Sodium Chloride 10 ml 07/07/24 22:00 07/15/24 06:44 Central Line Flush IV PUSH 10 ml Q8HR EMILE Administration Thiamine HCl 100 mg 07/03/24 09:00 07/15/24 08:13 Thiamine Hcl 200 Mg/2 Ml Vial IV PUSH 100 mg DAILY EMILE Administration Radiology Results: ITS Impressions Small Bowel X-Ray 07/05/24 18:48 IMPRESSION: Delayed passage into the colon with reduction in caliber of the visualized small bowel, markedly distended on initial evaluation. Chest X-Ray 07/07/24 14:34 IMPRESSION: 1. Stable airspace opacities in the lower lung zones, consistent with atelectasis versus pneumonia. Abdomen/Pelvis CT 07/10/24 08:46 IMPRESSION: 1. Bilateral pneumonia. 2. Small pleural effusions. 3. Dilated small bowel, likely adynamic ileus. 4. Wall thickening of small bowel, consistent with enteritis. Labs Labs: Laboratory Results - last 24 hr 07/14/24 07/14/24 07/14/24 06:09 11:40 17:40 WBC RBC Hgb Hct MCV MCH MCHC RDW Plt Count MPV Immature Gran % (Auto) Neut % (Auto) Lymph % (Auto) [place] % (Auto) Eos % (Auto) Baso % (Auto) Lymph # (Auto) [place] # (Auto) Eos # (Auto) Baso # (Auto) Abs Immat Gran (auto) Absolute Neuts (auto) Absolute Nucleated RBC Nucleated RBC % Sodium Potassium Chloride Carbon Dioxide Anion Gap BUN Creatinine Estim Creat Clear Calc Estimated GFR Glucose POC Capillary Glucose 122 H 107 H Calcium Magnesium Total Bilirubin AST ALT Alkaline Phosphatase Total Protein Albumin Triglycerides 169 H Lipase 07/14/24 07/15/24 07/15/24 23:30 05:54 06:59 WBC 10.5 H RBC 4.46 L Hgb 13.7 L Hct 42.3 MCV 94.8 MCH 30.7 MCHC 32.4 RDW 12.2 Plt Count 491 H MPV 10.3 Immature Gran % (Auto) 7.3 H Neut % (Auto) 64.8 Lymph % (Auto) 14.1 L [place] % (Auto) 9.5 H Eos % (Auto) 2.6 Baso % (Auto) 1.7 H Lymph # (Auto) 1.48 [place] # (Auto) 1.0 H Eos # (Auto) 0.3 Baso # (Auto) 0.2 H Abs Immat Gran (auto) 0.77 H Absolute Neuts (auto) 6.8 H Absolute Nucleated RBC 0.000 Nucleated RBC % 0.0 Sodium 136 L Potassium 4.7 Chloride 101 Carbon Dioxide 32 H Anion Gap 3 L BUN 14 Creatinine 1.00 Estim Creat Clear Calc 107 Estimated GFR > 60 Glucose 97 POC Capillary Glucose 92 103 Calcium 9.3 Magnesium 2.1 Total Bilirubin 0.5 AST 31 ALT 25 Alkaline Phosphatase 66 Total Protein 7.0 Albumin 3.5 Triglycerides Lipase 1803 H 07/15/24 07:53 WBC RBC Hgb Hct MCV MCH MCHC RDW Plt Count MPV Immature Gran % (Auto) Neut % (Auto) Lymph % (Auto) [place] % (Auto) Eos % (Auto) Baso % (Auto) Lymph # (Auto) [place] # (Auto) Eos # (Auto) Baso # (Auto) Abs Immat Gran (auto) Absolute Neuts (auto) Absolute Nucleated RBC Nucleated RBC % Sodium Potassium Chloride Carbon Dioxide Anion Gap BUN Creatinine Estim Creat Clear Calc Estimated GFR Glucose POC Capillary Glucose 91 Calcium Magnesium Total Bilirubin AST ALT Alkaline Phosphatase Total Protein Albumin Triglycerides Lipase Quality VTE Prophylaxis VTE prophylaxis: mechanical ordered
[2024-07-15 11:40] VITALS: BP 113/78; PULSE 74; RESP 16; TEMP 36.5; O2SAT 98
[2024-07-15 11:49] LABS: Glucose Point of Care 114 mg/dl (65-105)
--- NOTE | 2024-07-15 12:15 | P.PN_ITS ---
Progress Note: A&P Assessment and Plan (1) Protein-calorie malnutrition, moderate: Code(s): E44.0 - Moderate protein-calorie malnutrition Status: Acute Assessment and Plan: Patient's bowel function has returned. Will wean off the TPN today. Go ahead advanced to solid food with Ensure supplements. (2) Small bowel perforation: Code(s): K63.1 - Perforation of intestine (nontraumatic) Status: Acute Assessment and Plan: Postoperative ileus is not resolved. Patient has had a bowel movements. Midline incision used to drain but no worsening cellulitis. White blood cell count is almost normal now. Continue watching the midline wound. Open and we need to. Continue ambulating. Hopefully home in next day or 2. Subjective Date/time seen: 07/15/24 12:15 Interval history: Patient is doing better today. He states he feels much better and continues to walk in the hallways. He had 2 formed bowel movements last evening. He has been tolerating clear liquids. No nausea or vomiting. White blood cell count is 10,500 and almost normal. No fever. Exam GI: Other: Abdomen is soft and nondistended. The incision has 4 separate small open areas which continues to drain. No spreading erythema. Objective Data Vital Signs Vital Signs: Vital Signs - 24 hr 07/14/24 16:00 07/14/24 19:10 07/14/24 19:57 Temperature 34.0 C L 36.7 C 36.3 C L Pulse Rate 79 86 Respiratory Rate 20 16 Blood Pressure 122/69 114/81 Pulse Oximetry 99 100 Oxygen Delivery Fraction of Inspired Oxygen 07/14/24 23:45 07/14/24 20:00 07/15/24 03:51 Temperature 36.9 C 36.3 C L Pulse Rate 84 71 Respiratory Rate 18 18 Blood Pressure 107/64 105/59 L Pulse Oximetry 99 98 Oxygen Delivery Room Air Fraction of Inspired Oxygen 07/15/24 08:00 07/15/24 09:10 07/15/24 11:40 Temperature 36.5 C 36.5 C Pulse Rate 71 92 74 Respiratory Rate 18 12 16 Blood Pressure 112/75 113/78 Pulse Oximetry 98 99 98 Oxygen Delivery Room Air Fraction of Inspired Oxygen 21 Intake/Output Intake/Output: Intake & Output 07/12/24 07/13/24 07/14/24 07/15/24 23:59 23:59 23:59 23:59 Intake Total 4865.0 3862.5 3485.0 1150 Output Total 2450 2300 600 800 Balance 2415.0 1562.5 2885.0 350 Meds/Results Medications: Active Medications Generic Name Dose Route Start Last Admin Trade Name Freq PRN Reason Stop Dose Admin Hydrocodone Bitart/Acetaminophen 1 tab 07/15/24 12:14 Hydrocodone/Acetaminophen (*Crx) 5-325 Mg Tablet PO Q4H PRN Pain Rated 4-6 Alteplase, Recombinant 2 mg 07/13/24 03:41 07/15/24 05:36 Alteplase 2 Mg Vial (Cathflo) IV PUSH 2 mg ONCE PRN Administration Line Occlusion Amitriptyline HCl 25 mg 07/06/24 21:00 07/14/24 20:19 Amitriptyline Hcl 25 Mg Tablet PO 25 mg HS EMILE Administration Bupropion HCl 300 mg 07/06/24 10:10 07/15/24 08:11 Bupropion Hcl Xl (24 Hr) 150 Mg Tabcr PO 300 mg DAILY EMILE Administration Buspirone HCl 5 mg 07/07/24 21:00 07/14/24 20:19 Buspirone Hcl 5 Mg Tablet BY MOUTH 5 mg HS EMILE Administration Buspirone HCl 30 mg 07/06/24 10:25 07/15/24 08:11 Buspirone Hcl 10 Mg Tablet PO 30 mg DAILY EMILE Administration Buspirone HCl 10 mg 07/06/24 21:00 07/14/24 20:19 Buspirone Hcl 10 Mg Tablet BY MOUTH 10 mg HS EMILE Administration Dextrose 12.5 gm 07/02/24 14:18 Dextrose 50% 25 Gm/50 Ml Syringe IV PUSH PRN PRN Hypoglycemia Protocol Enoxaparin Sodium 40 mg 07/12/24 09:00 07/15/24 08:11 Enoxaparin 40 Mg/0.4 Ml Syringe SUB-Q 40 mg DAILY EMILE Administration Fluticasone Propionate 2 spray 07/06/24 10:10 07/15/24 08:12 Fluticasone Propionate 0.05% Na Spr 16 Gm Btl (*Bkc) NASAL 2 spray DAILY EMILE Administration Folic Acid 1 mg 07/03/24 09:00 07/15/24 08:12 Folic Acid 1 Mg/0.2 Ml Inj IV PUSH 1 mg QAM EMILE Administration Glucagon 1 mg 07/02/24 14:18 Glucagon For Inj 1 Mg Vial IM PRN PRN Hypoglycemia Protocol Guaifenesin 200 mg 07/08/24 21:21 07/08/24 21:31 Guaifenesin 200 Mg/10 Ml Udc PO 200 mg Q4H PRN Administration Cough Dextrose 1,000 mls @ 100 mls/hr 07/02/24 14:18 Dextrose 5% 1,000 Ml IVPB PRN PRN Hypoglycemia Protocol Dextrose 1,000 mls @ 50 mls/hr 07/07/24 10:08 Dextrose 10% IV CONT .Q20H PRN if PN is interrupted Potassium Chloride 60 meq/ 1,030 mls @ 100 mls/hr 07/09/24 10:00 07/15/24 01:56 Dextrose/Sodium Chloride IV CONT 100 mls/hr .[id number] EMILE Administration Insulin Aspart 2 - 5 units 07/02/24 18:00 07/15/24 06:44 Insulin Aspart (*Bkc) 100 Units/Ml SUB-Q Not Given Q6HR [facility] Protocol Lorazepam 1 mg 07/05/24 15:49 07/15/24 10:38 Lorazepam Inj (*Crx) 2 Mg/Ml Vial IV PUSH 1 mg Q6H PRN Administration Anxiety Miscellaneous Information 1 each 07/14/24 00:01 Clinamix Needs To Be Renewed Or It Will Automatically Discontinue. XX 08/13/24 00:00 CLARIFY [facility] Miscellaneous Information 1 each 07/15/24 00:01 Order Clarification XX 08/14/24 00:00 CLARIFY [facility] Morphine Sulfate 2 mg 07/10/24 10:20 07/15/24 10:39 Morphine Sulfate (*Crx) 2 Mg/Ml Inj IV PUSH 2 mg Q2H PRN Administration Pain Rated 4-6 Morphine Sulfate 4 mg 07/10/24 10:20 07/13/24 20:09 Morphine Sulfate (*Crx) 4 Mg/Ml Inj IV PUSH 4 mg Q2H PRN Administration Pain Rated 7-10 Naloxone HCl 0.1 mg 07/07/24 09:20 07/10/24 00:02 Naloxone Hcl 0.4 Mg/Ml Vial IV PUSH 0.1 mg Q5MIN PRN Administration Opioid Reversal Desvenlafaxine 1 each 07/07/24 09:00 11/30/24 08:13 Succinate 25 Mg Tab PO 08/06/24 08:59 1 each Er DAILY EMILE Administration Oxycodone HCl 5 mg 07/15/24 12:14 Oxycodone Hcl (*Crx) 5 Mg Tab Ir PO Q4H PRN Pain Rated 7-10 Pantoprazole Sodium 40 mg 07/05/24 16:00 07/15/24 08:13 Pantoprazole Sodium Iv 40 Mg Vial IV PUSH 40 mg QAM EMILE Administration Phenol 1 spray 07/02/24 12:12 07/13/24 08:41 Phenol/Sod Pheno [place] Mendez (*Bkc) MUCOUS MEM 1 spray PRN PRN Administration Sore Throat Prochlorperazine Edisylate 10 mg 07/06/24 21:57 07/14/24 22:59 Prochlorperazine Edisylate 10 Mg/2 Ml Vial IV PUSH 10 mg Q6H PRN Administration Nausea And Vomiting Sodium Chloride 10 ml 07/07/24 14:09 Central Line Flush IV PUSH PRN PRN with TPN bag changes Sodium Chloride 20 ml 07/07/24 14:09 Central Line Flush IV PUSH PRN PRN after blood draws Sodium Chloride 10 ml 07/07/24 22:00 07/15/24 06:44 Central Line Flush IV PUSH 10 ml Q8HR EMILE Administration Thiamine HCl 100 mg 07/03/24 09:00 07/15/24 08:13 Thiamine Hcl 200 Mg/2 Ml Vial IV PUSH 100 mg DAILY EMILE Administration Radiology Results: ITS Impressions Small Bowel X-Ray 07/05/24 18:48 IMPRESSION: Delayed passage into the colon with reduction in caliber of the visualized small bowel, markedly distended on initial evaluation. Chest X-Ray 07/07/24 14:34 IMPRESSION: 1. Stable airspace opacities in the lower lung zones, consistent with atelectasis versus pneumonia. Abdomen/Pelvis CT 07/10/24 08:46 IMPRESSION: 1. Bilateral pneumonia. 2. Small pleural effusions. 3. Dilated small bowel, likely adynamic ileus. 4. Wall thickening of small bowel, consistent with enteritis. Labs Labs: Laboratory Results - last 24 hr 07/14/24 07/14/24 07/14/24 06:09 17:40 23:30 WBC RBC Hgb Hct MCV MCH MCHC RDW Plt Count MPV Immature Gran % (Auto) Neut % (Auto) Lymph % (Auto) [place] % (Auto) Eos % (Auto) Baso % (Auto) Lymph # (Auto) [place] # (Auto) Eos # (Auto) Baso # (Auto) Abs Immat Gran (auto) Absolute Neuts (auto) Absolute Nucleated RBC Nucleated RBC % Sodium Potassium Chloride Carbon Dioxide Anion Gap BUN Creatinine Estim Creat Clear Calc Estimated GFR Glucose POC Capillary Glucose 107 H 92 Calcium Magnesium Total Bilirubin AST ALT Alkaline Phosphatase Total Protein Albumin Triglycerides 169 H Lipase 07/15/24 07/15/24 07/15/24 05:54 06:59 07:53 WBC 10.5 H RBC 4.46 L Hgb 13.7 L Hct 42.3 MCV 94.8 MCH 30.7 MCHC 32.4 RDW 12.2 Plt Count 491 H MPV 10.3 Immature Gran % (Auto) 7.3 H Neut % (Auto) 64.8 Lymph % (Auto) 14.1 L [place] % (Auto) 9.5 H Eos % (Auto) 2.6 Baso % (Auto) 1.7 H Lymph # (Auto) 1.48 [place] # (Auto) 1.0 H Eos # (Auto) 0.3 Baso # (Auto) 0.2 H Abs Immat Gran (auto) 0.77 H Absolute Neuts (auto) 6.8 H Absolute Nucleated RBC 0.000 Nucleated RBC % 0.0 Sodium 136 L Potassium 4.7 Chloride 101 Carbon Dioxide 32 H Anion Gap 3 L BUN 14 Creatinine 1.00 Estim Creat Clear Calc 107 Estimated GFR > 60 Glucose 97 POC Capillary Glucose 103 91 Calcium 9.3 Magnesium 2.1 Total Bilirubin 0.5 AST 31 ALT 25 Alkaline Phosphatase 66 Total Protein 7.0 Albumin 3.5 Triglycerides Lipase 1803 H 07/15/24 11:38 WBC RBC Hgb Hct MCV MCH MCHC RDW Plt Count MPV Immature Gran % (Auto) Neut % (Auto) Lymph % (Auto) [place] % (Auto) Eos % (Auto) Baso % (Auto) Lymph # (Auto) [place] # (Auto) Eos # (Auto) Baso # (Auto) Abs Immat Gran (auto) Absolute Neuts (auto) Absolute Nucleated RBC Nucleated RBC % Sodium Potassium Chloride Carbon Dioxide Anion Gap BUN Creatinine Estim Creat Clear Calc Estimated GFR Glucose POC Capillary Glucose 114 H Calcium Magnesium Total Bilirubin AST ALT Alkaline Phosphatase Total Protein Albumin Triglycerides Lipase
[2024-07-15] MEDS: oxyCODONE HCL (*CRX) 5 MG TAB IR PO ×3 (12:22→20:39)
[2024-07-15] MEDS: PROCHLORPERAZINE EDISYLATE 10 MG/2 ML VIAL IV PUSH (14:43)
[2024-07-15 16:15] VITALS: BP 112/70; PULSE 88; RESP 12; TEMP 36.4; O2SAT 100
[2024-07-15] MEDS: ALPRAZolam (*CRX) 0.5 MG TABLET PO (19:34)
[2024-07-15 20:00] VITALS: BP 127/73; PULSE 81; RESP 16; TEMP 36.3; O2SAT 100
[2024-07-15] MEDS: busPIRone HCL 5 MG TABLET BY MOUTH (20:53)
[2024-07-15] MEDS: busPIRone HCL 10 MG TABLET BY MOUTH (20:53)
[2024-07-15] MEDS: SULFAMETHOXAZOLE/TRIMETHOPRIM 800/160 MG DS TABLET 1 TAB PO (20:53)
[2024-07-15] MEDS: AMITRIPTYLINE HCL 25 MG TABLET PO (20:53)
[2024-07-15] MEDS: HYDROcodone/acetaminophen (*CRX) 5-325 MG TABLET 1 TAB PO (23:28)
[2024-07-16] VITALS: BP 146/99; PULSE 72; RESP 13; TEMP 36.2; O2SAT 100
[2024-07-16] MEDS: MORPHINE SULFATE (*CRX) 4 MG/ML INJ IV PUSH ×2 (03:54→17:33)
[2024-07-16 04:00] VITALS: BP 119/72; PULSE 69; RESP 12; TEMP 36.7; O2SAT 100
[2024-07-16] MEDS: HYDROcodone/acetaminophen (*CRX) 5-325 MG TABLET 1 TAB PO ×3 (05:49→21:39)
[2024-07-16] MEDS: ALPRAZolam (*CRX) 0.5 MG TABLET PO ×3 (05:49→17:34)
[2024-07-16] MEDS: PROCHLORPERAZINE EDISYLATE 10 MG/2 ML VIAL IV PUSH ×4 (05:50→23:50)
[2024-07-16 06:02] LABS: Basophils Absolute Auto 0.1 K/mm3 (0.0-0.1); Eosinophils Absolute Auto 0.3 K/mm3 (0-0.3); Eosinophils Percent Auto 3.8 % (0-4.4); Hematocrit 38.2 % (42.0-52.0); Hemoglobin 12.7 g/dL (14.0-18.0); Immature Granulocyte Absolute 0.51 K/mm3 (0.00-0.031); Immature Granulocyte Percent A 6.7 % (0-0.5); Lymphocytes Absolute Auto 1.92 K/mm3 (0.9-3.2); Lymphocytes Percent Auto 25.2 % (18.3-44.2); Mean Corpuscular HGB Conc 33.2 g/dl (32-36); Mean Corpuscular Hemoglobin 31.4 pg (26-34); Mean Corpuscular Volume 94.3 fl (80-100); Mean Platelet Volume 9.9 fl (7.4-10.4); Monocytes Absolute Auto 0.8 K/mm3 (0.1-0.6); Monocytes Percent Auto 10.2 % (2.6-8.5); Neutrophils Percent Auto 53.1 % (45.5-73.1); Platelet Count Result 462 k/mm3 (150-375); Red Blood Count 4.05 M/mm3 (4.6-6.20); Red Cell Distribution Width 12.3 % (11.5-14.5); White Blood Count 7.6 K/mm3 (4.5-10.0)
[2024-07-16 06:05] LABS: Alanine Aminotransferase 32 U/L (6-50); Albumin Level 3.2 g/dL (3.5-5.1); Alkaline Phosphatase 73 U/L (38-126); Anion Gap 4 mmol/L (4-12); Aspartate Amino Transferase 42 U/L (17-59); Bilirubin,Total 0.4 mg/dL (0.2-1.3); Blood Urea Nitrogen 12 mg/dL (9-20); Calcium 8.8 mg/dL (8.4-10.2); Carbon Dioxide 30 mmol/L (22-30); Chloride 101 mmol/L (98-107); Estimated CRCL calculation 107 ml/min; Estimated Glomerular Filt Rate > 60; Glucose 89 mg/dL (65-110); Potassium 4.2 mmol/L (3.4-5.0); Sodium 135 mmol/L (137-145)
[2024-07-16] MEDS: CENTRAL LINE FLUSH 10 ML IV PUSH ×3 (06:55→21:40)
[2024-07-16 08:00] VITALS: BP 140/64; PULSE 85; RESP 20; TEMP 36; O2SAT 99
[2024-07-16 08:13] LABS: Glucose Point of Care 93 mg/dl (65-105)
[2024-07-16] MEDS: busPIRone HCL 10 MG TABLET 30 MG PO (10:27)
[2024-07-16] MEDS: buPROPion HCL XL (24 HR) 150 MG TABCR 300 MG PO (10:32)
[2024-07-16] MEDS: THIAMINE HCL 200 MG/2 ML VIAL 100 MG IV PUSH (10:32)
[2024-07-16] MEDS: SULFAMETHOXAZOLE/TRIMETHOPRIM 800/160 MG DS TABLET 1 TAB PO ×2 (10:34→21:40)
[2024-07-16] MEDS: PANTOPRAZOLE SODIUM IV 40 MG VIAL IV PUSH (10:34)
[2024-07-16] MEDS: ENOXAPARIN 40 MG/0.4 ML SYRINGE SUB-Q (10:34)
[2024-07-16] MEDS: FLUTICASONE PROPIONATE 0.05% NA SPR 16 GM BTL (*BKC) 2 SPRAY NASAL (10:49)
--- NOTE | 2024-07-16 11:39 | PC.NURSE ---
RN received the folic acid from pharmacy
[2024-07-16 12:00] VITALS: BP 128/72; PULSE 85; RESP 20; TEMP 35.7; O2SAT 99
[2024-07-16] MEDS: FOLIC ACID 1 MG/0.2 ML INJ IV PUSH (12:11)
--- NOTE | 2024-07-16 12:11 | WPDPN ---
Progress Note: A&P Assessment and Plan (1) Superficial postoperative wound infection: Code(s): T81.49XA - Infection following a procedure, other surgical site, initial encounter Status: Acute Assessment and Plan: The lower part of the midline wound is still draining some purulent fluid. We need to go on open up the lower part of the incision today. We will could just do wet-to-dry normal saline the packings for now. Patient has likely be noted that home on his own. (2) Small bowel perforation: Code(s): K63.1 - Perforation of intestine (nontraumatic) Status: Acute Assessment and Plan: Status post segmental resection and extensive adhesiolysis. He is doing well now. Bowel function has returned. TPN has been weaned off. He is tolerating solid food. He is also having bowel movements. Hopefully can go home tomorrow on oral antibiotic. Subjective Date/time seen: 07/16/24 12:11 Interval history: Patient continues do well. Walking in hallways. Tolerating solid food. Having bowel movements. White blood cell count is now normal. Electrolytes are normal as well. TPN was weaned off yesterday. Exam GI: Other: Abdomen is soft and nondistended. Midline incision the lower part still has some purulent drainage from a couple of skin of the openings. No spreading erythema. Objective Data Vital Signs Vital Signs: Vital Signs - 24 hr 07/15/24 16:15 07/15/24 20:00 07/15/24 20:00 Temperature 36.4 C L 36.3 C L Pulse Rate 88 81 81 Respiratory Rate 12 16 16 Blood Pressure 112/70 127/73 Pulse Oximetry 100 100 100 Oxygen Delivery Room Air Fraction of Inspired Oxygen 21 07/16/24 00:00 07/16/24 04:00 07/16/24 08:00 Temperature 36.2 C L 36.7 C 36.0 C L Pulse Rate 72 69 85 Respiratory Rate 13 12 20 Blood Pressure 146/99 H 119/72 140/64 Pulse Oximetry 100 100 99 Oxygen Delivery Fraction of Inspired Oxygen Intake/Output Intake/Output: Intake & Output 07/13/24 07/14/24 07/15/24 07/16/24 23:59 23:59 23:59 23:59 Intake Total 3862.5 3485.0 2180 550 Output Total 2300 600 800 Balance 1562.5 2885.0 1380 550 Meds/Results Medications: Active Medications Generic Name Dose Route Start Last Admin Trade Name Freq PRN Reason Stop Dose Admin Hydrocodone Bitart/Acetaminophen 1 tab 07/15/24 12:14 07/16/24 10:33 Hydrocodone/Acetaminophen (*Crx) 5-325 Mg Tablet PO 1 tab Q4H PRN Administration Pain Rated 4-6 Alprazolam 0.5 mg 07/15/24 16:30 07/16/24 10:32 Alprazolam (*Crx) 0.5 Mg Tablet PO 0.5 mg BID PRN Administration Anxiety Alteplase, Recombinant 2 mg 07/13/24 03:41 07/15/24 05:36 Alteplase 2 Mg Vial (Cathflo) IV PUSH 2 mg ONCE PRN Administration Line Occlusion Amitriptyline HCl 25 mg 07/06/24 21:00 07/15/24 20:53 Amitriptyline Hcl 25 Mg Tablet PO 25 mg HS EMILE Administration Bupropion HCl 300 mg 07/06/24 10:10 07/16/24 10:32 Bupropion Hcl Xl (24 Hr) 150 Mg Tabcr PO 300 mg DAILY EMILE Administration Buspirone HCl 5 mg 07/07/24 21:00 07/15/24 20:53 Buspirone Hcl 5 Mg Tablet BY MOUTH 5 mg HS EMILE Administration Buspirone HCl 30 mg 07/06/24 10:25 07/16/24 10:27 Buspirone Hcl 10 Mg Tablet PO 30 mg DAILY EMILE Administration Buspirone HCl 10 mg 07/06/24 21:00 07/15/24 20:53 Buspirone Hcl 10 Mg Tablet BY MOUTH 10 mg HS EMILE Administration Dextrose 12.5 gm 07/02/24 14:18 Dextrose 50% 25 Gm/50 Ml Syringe IV PUSH PRN PRN Hypoglycemia Protocol Enoxaparin Sodium 40 mg 07/12/24 09:00 07/16/24 10:34 Enoxaparin 40 Mg/0.4 Ml Syringe SUB-Q 40 mg DAILY EMILE Administration Fluticasone Propionate 2 spray 07/06/24 10:10 07/16/24 10:49 Fluticasone Propionate 0.05% Na Spr 16 Gm Btl (*Bkc) NASAL 2 spray DAILY EMILE Administration Folic Acid 1 mg 07/03/24 09:00 07/15/24 08:12 Folic Acid 1 Mg/0.2 Ml Inj IV PUSH 1 mg QAM EMILE Administration Glucagon 1 mg 07/02/24 14:18 Glucagon For Inj 1 Mg Vial IM PRN PRN Hypoglycemia Protocol Guaifenesin 200 mg 07/08/24 21:21 07/08/24 21:31 Guaifenesin 200 Mg/10 Ml Udc PO 200 mg Q4H PRN Administration Cough Dextrose 1,000 mls @ 100 mls/hr 07/02/24 14:18 Dextrose 5% 1,000 Ml IVPB PRN PRN Hypoglycemia Protocol Dextrose 1,000 mls @ 50 mls/hr 07/07/24 10:08 Dextrose 10% IV CONT .Q20H PRN if PN is interrupted Potassium Chloride 60 meq/ 1,030 mls @ 100 mls/hr 07/09/24 10:00 07/15/24 20:39 Dextrose/Sodium Chloride IV CONT 100 mls/hr .[id number] EMILE Administration Miscellaneous Information 1 each 07/14/24 00:01 Clinamix Needs To Be Renewed Or It Will Automatically Discontinue. XX 08/13/24 00:00 CLARIFY EMILE Miscellaneous Information 1 each 07/15/24 00:01 Order Clarification XX 08/14/24 00:00 CLARIFY [facility] Morphine Sulfate 2 mg 07/10/24 10:20 07/15/24 14:42 Morphine Sulfate (*Crx) 2 Mg/Ml Inj IV PUSH 2 mg Q2H PRN Administration Pain Rated 4-6 Morphine Sulfate 4 mg 07/10/24 10:20 07/16/24 03:54 Morphine Sulfate (*Crx) 4 Mg/Ml Inj IV PUSH 4 mg Q2H PRN Administration Pain Rated 7-10 Naloxone HCl 0.1 mg 07/07/24 09:20 07/10/24 00:02 Naloxone Hcl 0.4 Mg/Ml Vial IV PUSH 0.1 mg Q5MIN PRN Administration Opioid Reversal Desvenlafaxine 1 each 07/07/24 09:00 07/16/24 10:43 Succinate 25 Mg Tab PO 08/06/24 08:59 1 each Er DAILY EMILE Administration Oxycodone HCl 5 mg 07/15/24 12:14 07/15/24 20:39 Oxycodone Hcl (*Crx) 5 Mg Tab Ir PO 5 mg Q4H PRN Administration Pain Rated 7-10 Pantoprazole Sodium 40 mg 07/05/24 16:00 07/16/24 10:34 Pantoprazole Sodium Iv 40 Mg Vial IV PUSH 40 mg QAM EMILE Administration Phenol 1 spray 07/02/24 12:12 07/13/24 08:41 Phenol/Sod Pheno [place] Mendez (*Bkc) MUCOUS MEM 1 spray PRN PRN Administration Sore Throat Prochlorperazine Edisylate 10 mg 07/06/24 21:57 07/16/24 05:50 Prochlorperazine Edisylate 10 Mg/2 Ml Vial IV PUSH 10 mg Q6H PRN Administration Nausea And Vomiting Sodium Chloride 10 ml 07/07/24 14:09 Central Line Flush IV PUSH PRN PRN with TPN bag changes Sodium Chloride 20 ml 07/07/24 14:09 Central Line Flush IV PUSH PRN PRN after blood draws Sodium Chloride 10 ml 07/07/24 22:00 07/16/24 06:55 Central Line Flush IV PUSH 10 ml Q8HR EMILE Administration Thiamine HCl 100 mg 07/03/24 09:00 07/16/24 10:32 Thiamine Hcl 200 Mg/2 Ml Vial IV PUSH 100 mg DAILY EMILE Administration Trimethoprim/Sulfamethoxazole 1 tab 07/15/24 21:00 07/16/24 10:34 Sulfamethoxazole/Trimethoprim 800/160 Mg Ds Tablet PO 1 tab Q12HR EMILE Administration Radiology Results: ITS Impressions Small Bowel X-Ray 07/05/24 18:48 IMPRESSION: Delayed passage into the colon with reduction in caliber of the visualized small bowel, markedly distended on initial evaluation. Chest X-Ray 07/07/24 14:34 IMPRESSION: 1. Stable airspace opacities in the lower lung zones, consistent with atelectasis versus pneumonia. Abdomen/Pelvis CT 07/10/24 08:46 IMPRESSION: 1. Bilateral pneumonia. 2. Small pleural effusions. 3. Dilated small bowel, likely adynamic ileus. 4. Wall thickening of small bowel, consistent with enteritis. Abdomen X-Ray 07/15/24 13:12 IMPRESSION: Gas distended small bowel and colon segments, which may be due to postoperative adynamic ileus Removal of NG tube since 07/14/2024 Labs Labs: Laboratory Results - last 24 hr 07/16/24 07/16/24 05:38 07:57 WBC 7.6 RBC 4.05 L Hgb 12.7 L Hct 38.2 L MCV 94.3 MCH 31.4 MCHC 33.2 RDW 12.3 Plt Count 462 H MPV 9.9 Immature Gran % (Auto) 6.7 H Neut % (Auto) 53.1 Lymph % (Auto) 25.2 [place] % (Auto) 10.2 H Eos % (Auto) 3.8 Baso % (Auto) 1.0 Lymph # (Auto) 1.92 [place] # (Auto) 0.8 H Eos # (Auto) 0.3 Baso # (Auto) 0.1 Abs Immat Gran (auto) 0.51 H Absolute Neuts (auto) 4.0 Absolute Nucleated RBC 0.000 Total Counted Cancelled Neutrophils % (Manual) Cancelled Band Neutrophils % Cancelled Lymphocytes % (Manual) Cancelled Monocytes % (Manual) Cancelled Eosinophils % (Manual) Cancelled Basophils % (Manual) Cancelled Metamyelocytes % Cancelled Myelocytes % Cancelled Promyelocytes % (Man) Cancelled Nucleated RBC % 0.0 Abs Neuts (Manual) Cancelled Abs Lymphs (Manual) Cancelled Abs Monocytes (Manual) Cancelled Absolute Eos (Manual) Cancelled Abs Basophils (Manual) Cancelled Nucleated RBCs Cancelled Hypersegmented Neuts Cancelled Atypical Lymphocytes Cancelled Blast Cells Cancelled Plasma Cells Cancelled Smudge Cells Cancelled Other Cell Type Cancelled Toxic Granulation Cancelled Dohle Bodies Cancelled Omnica Rods Cancelled Platelet Estimate Cancelled Clumped Platelets Cancelled Large Platelets Cancelled Giant Platelets Cancelled Polychromasia Cancelled Hypochromasia Cancelled Hyperchromasia Cancelled Poikilocytosis Cancelled Basophilic Stippling Cancelled Anisocytosis Cancelled Microcytosis Cancelled Macrocytosis Cancelled Spherocytes Cancelled Pappenheimer Bodies Cancelled Sickle Cells Cancelled Target Cells Cancelled Tear Drop Cells Cancelled Ovalocytes Cancelled Stomatocytes Cancelled Helmet Cells Cancelled [place] Bodies Cancelled [place] Rings Cancelled [place] Cells Cancelled Crenated Cell Cancelled Acanthocytes (Spur) Cancelled Rouleaux Cancelled Schistocytes Cancelled Sodium 135 L Potassium 4.2 Chloride 101 Carbon Dioxide 30 Anion Gap 4 BUN 12 Creatinine 1.00 Estim Creat Clear Calc 107 Estimated GFR > 60 Glucose 89 POC Capillary Glucose 93 Calcium 8.8 Magnesium 2.0 Total Bilirubin 0.4 AST 42 ALT 32 Alkaline Phosphatase 73 Total Protein 6.0 L Albumin 3.2 L
[2024-07-16] MEDS: oxyCODONE HCL (*CRX) 5 MG TAB IR PO (12:55)
--- NOTE | 2024-07-16 14:06 | P.PNIM_ITS ---
Progress Note: A&P Assessment and Plan (1) Sepsis: Code(s): A41.9 - Sepsis, unspecified organism Status: Acute Assessment and Plan: Patient presents with abdominal pain and met SIRS criteria on admission with t achycardic, tachypnea, leukocytosis. UCx negative. BCx NGTD. CXR showed bilateral lower lobe opacities . CT A/P showing no acute infectious process. Infectious etiology unlikely. 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 He has a hx of SBO since with 2 small bowel resections for adhesions but no episodes for about 6 yrs. He did have a left inguinal surgery repair about [address] abd/pelvis 07/02 reviewed Bowel having bowel movement OFF TPN advance diet per Gen Surgery Gen Surg following (3) Acute kidney injury: Code(s): N17.9 - Acute kidney failure, unspecified Status: Resolved Assessment and Plan: Resolved. Cr 5.8 with BUN 38. No prior labs to compare but no hx of CKD. With IV fluids, BUN/Cr normalized. CT A/P showing normal appearing kidneys and bladder Parsons TYLER related to dehydration Creatinine normal, echo resolved. Continue monitoring. (4) Alcohol withdrawal delirium: Code(s): F10.931 - Alcohol use, unspecified with withdrawal delirium Status: Acute Assessment and Plan: Patient with evidence of severe withdrawals on admission. CIWA protocol started. Patient became much improved. Restraints and sitter were discontinued. CIWA scose down to 0-2 range Educated about the benefits of abstaining from alcohol Family in the room mention patient was talking about fentanyl. Patient denies taking fentanyl prior to admission. No UDS was performed. (5) Pneumonia: Code(s): J18.9 - Pneumonia, unspecified organism Status: Acute Assessment and Plan: CXR showed bilateral Lower lobes opacities Day 7/7 Levaquin, completed abx monitor cultures Plan DVT prophylaxis -subQ Lovenox. Code status - full Subjective Date/time seen: 07/16/24 14:06 Interval history: Off TPN and diet advanced by gen surgery Review of Systems Review of Systems: All other systems reviewed and negative except as noted in the history above. All systems reviewed & are unremarkable except as noted in HPI and below ROS unobtainable: Yes unobtainable due to mental status Exam Narrative: Patient is comfortable, NAD HEENT: eyes are clear and none icteric, NG tube in place LUNGS:CTA HEART: RR S1S2 ABD: BS+ faint and diffusely tender Lower extremities: no edema SKIN: nonjaundiced Neuro: grossly intact. Objective Data Vital Signs Vital Signs: Vital Signs - 24 hr 07/15/24 16:15 07/15/24 20:00 07/15/24 20:00 Temperature 97.5 F L 97.4 F L Pulse Rate 88 81 81 Respiratory Rate 12 16 16 Blood Pressure 112/70 127/73 Pulse Oximetry 100 100 100 Oxygen Delivery Room Air Fraction of Inspired Oxygen 21 07/16/24 00:00 07/16/24 04:00 07/16/24 08:00 Temperature 97.1 F L 98.1 F 96.8 F L Pulse Rate 72 69 85 Respiratory Rate 13 12 20 Blood Pressure 146/99 H 119/72 140/64 Pulse Oximetry 100 100 99 Oxygen Delivery Fraction of Inspired Oxygen 07/16/24 12:00 Temperature 96.2 F L Pulse Rate 85 Respiratory Rate 20 Blood Pressure 128/72 Pulse Oximetry 99 Oxygen Delivery Fraction of Inspired Oxygen Intake/Output Intake/Output: Intake & Output 07/13/24 07/14/24 07/15/24 07/16/24 23:59 23:59 23:59 23:59 Intake Total 3862.5 3485.0 2180 550 Output Total 2300 600 800 Balance 1562.5 2885.0 1380 550 Meds/Results Medications: Active Medications Generic Name Dose Route Start Last Admin Trade Name Freq PRN Reason Stop Dose Admin Hydrocodone Bitart/Acetaminophen 1 tab 07/15/24 12:14 07/16/24 10:33 Hydrocodone/Acetaminophen (*Crx) 5-325 Mg Tablet PO 1 tab Q4H PRN Administration Pain Rated 4-6 Hydrocodone Bitart/Acetaminophen 1 tab 07/16/24 13:39 Hydrocodone/Acetaminophen (*Crx) 10-325 Mg Tablet PO Q6H PRN Pain Rated 7-10 Alprazolam 0.5 mg 07/15/24 16:30 07/16/24 10:32 Alprazolam (*Crx) 0.5 Mg Tablet PO 0.5 mg BID PRN Administration Anxiety Alteplase, Recombinant 2 mg 07/13/24 03:41 07/15/24 05:36 Alteplase 2 Mg Vial (Cathflo) IV PUSH 2 mg ONCE PRN Administration Line Occlusion Amitriptyline HCl 25 mg 07/06/24 21:00 07/15/24 20:53 Amitriptyline Hcl 25 Mg Tablet PO 25 mg HS EMILE Administration Bupropion HCl 300 mg 07/06/24 10:10 07/16/24 10:32 Bupropion Hcl Xl (24 Hr) 150 Mg Tabcr PO 300 mg DAILY EMILE Administration Buspirone HCl 5 mg 07/07/24 21:00 07/15/24 20:53 Buspirone Hcl 5 Mg Tablet BY MOUTH 5 mg HS EMILE Administration Buspirone HCl 30 mg 07/06/24 10:25 07/16/24 10:27 Buspirone Hcl 10 Mg Tablet PO 30 mg DAILY EMILE Administration Buspirone HCl 10 mg 07/06/24 21:00 07/15/24 20:53 Buspirone Hcl 10 Mg Tablet BY MOUTH 10 mg HS EMILE Administration Dextrose 12.5 gm 07/02/24 14:18 Dextrose 50% 25 Gm/50 Ml Syringe IV PUSH PRN PRN Hypoglycemia Protocol Enoxaparin Sodium 40 mg 07/12/24 09:00 07/16/24 10:34 Enoxaparin 40 Mg/0.4 Ml Syringe SUB-Q 40 mg DAILY EMILE Administration Fluticasone Propionate 2 spray 07/06/24 10:10 07/16/24 10:49 Fluticasone Propionate 0.05% Na Spr 16 Gm Btl (*Bkc) NASAL 2 spray DAILY EMILE Administration Folic Acid 1 mg 07/03/24 09:00 07/16/24 12:11 Folic Acid 1 Mg/0.2 Ml Inj IV PUSH 1 mg QAM EMILE Administration Glucagon 1 mg 07/02/24 14:18 Glucagon For Inj 1 Mg Vial IM PRN PRN Hypoglycemia Protocol Guaifenesin 200 mg 07/08/24 21:21 07/08/24 21:31 Guaifenesin 200 Mg/10 Ml Udc PO 200 mg Q4H PRN Administration Cough Dextrose 1,000 mls @ 100 mls/hr 07/02/24 14:18 Dextrose 5% 1,000 Ml IVPB PRN PRN Hypoglycemia Protocol Dextrose 1,000 mls @ 50 mls/hr 07/07/24 10:08 Dextrose 10% IV CONT .Q20H PRN if PN is interrupted Potassium Chloride 60 meq/ 1,030 mls @ 100 mls/hr 07/09/24 10:00 07/15/24 20:39 Dextrose/Sodium Chloride IV CONT 100 mls/hr .[id number] EMILE Administration Miscellaneous Information 1 each 07/14/24 00:01 Clinamix Needs To Be Renewed Or It Will Automatically Discontinue. XX 08/13/24 00:00 CLARIFY EMILE Miscellaneous Information 1 each 07/15/24 00:01 Order Clarification XX 08/14/24 00:00 CLARIFY EMILE Naloxone HCl 0.1 mg 07/07/24 09:20 07/10/24 00:02 Naloxone Hcl 0.4 Mg/Ml Vial IV PUSH 0.1 mg Q5MIN PRN Administration Opioid Reversal Desvenlafaxine 1 each 07/07/24 09:00 07/16/24 10:43 Succinate 25 Mg Tab PO 08/06/24 08:59 1 each Er DAILY EMILE Administration Pantoprazole Sodium 40 mg 07/05/24 16:00 07/16/24 10:34 Pantoprazole Sodium Iv 40 Mg Vial IV PUSH 40 mg QAM EMILE Administration Phenol 1 spray 07/02/24 12:12 07/13/24 08:41 Phenol/Sod Pheno [place] Mendez (*Bkc) MUCOUS MEM 1 spray PRN PRN Administration Sore Throat Prochlorperazine Edisylate 10 mg 07/06/24 21:57 07/16/24 12:11 Prochlorperazine Edisylate 10 Mg/2 Ml Vial IV PUSH 10 mg Q6H PRN Administration Nausea And Vomiting Sodium Chloride 10 ml 07/07/24 14:09 Central Line Flush IV PUSH PRN PRN with TPN bag changes Sodium Chloride 20 ml 07/07/24 14:09 Central Line Flush IV PUSH PRN PRN after blood draws Sodium Chloride 10 ml 07/07/24 22:00 07/16/24 06:55 Central Line Flush IV PUSH 10 ml Q8HR EMILE Administration Thiamine HCl 100 mg 07/03/24 09:00 07/16/24 10:32 Thiamine Hcl 200 Mg/2 Ml Vial IV PUSH 100 mg DAILY EMILE Administration Trimethoprim/Sulfamethoxazole 1 tab 07/15/24 21:00 07/16/24 10:34 Sulfamethoxazole/Trimethoprim 800/160 Mg Ds Tablet PO 1 tab Q12HR EMILE Administration Radiology Results: ITS Impressions Small Bowel X-Ray 07/05/24 18:48 IMPRESSION: Delayed passage into the colon with reduction in caliber of the visualized small bowel, markedly distended on initial evaluation. Chest X-Ray 07/07/24 14:34 IMPRESSION: 1. Stable airspace opacities in the lower lung zones, consistent with atelectasis versus pneumonia. Abdomen/Pelvis CT 07/10/24 08:46 IMPRESSION: 1. Bilateral pneumonia. 2. Small pleural effusions. 3. Dilated small bowel, likely adynamic ileus. 4. Wall thickening of small bowel, consistent with enteritis. Abdomen X-Ray 07/15/24 13:12 IMPRESSION: Gas distended small bowel and colon segments, which may be due to postoperative adynamic ileus Removal of NG tube since 07/14/2024 Labs Labs: Laboratory Results - last 24 hr 07/16/24 07/16/24 05:38 07:57 WBC 7.6 RBC 4.05 L Hgb 12.7 L Hct 38.2 L MCV 94.3 MCH 31.4 MCHC 33.2 RDW 12.3 Plt Count 462 H MPV 9.9 Immature Gran % (Auto) 6.7 H Neut % (Auto) 53.1 Lymph % (Auto) 25.2 [place] % (Auto) 10.2 H Eos % (Auto) 3.8 Baso % (Auto) 1.0 Lymph # (Auto) 1.92 [place] # (Auto) 0.8 H Eos # (Auto) 0.3 Baso # (Auto) 0.1 Abs Immat Gran (auto) 0.51 H Absolute Neuts (auto) 4.0 Absolute Nucleated RBC 0.000 Total Counted Cancelled Neutrophils % (Manual) Cancelled Band Neutrophils % Cancelled Lymphocytes % (Manual) Cancelled Monocytes % (Manual) Cancelled Eosinophils % (Manual) Cancelled Basophils % (Manual) Cancelled Metamyelocytes % Cancelled Myelocytes % Cancelled Promyelocytes % (Man) Cancelled Nucleated RBC % 0.0 Abs Neuts (Manual) Cancelled Abs Lymphs (Manual) Cancelled Abs Monocytes (Manual) Cancelled Absolute Eos (Manual) Cancelled Abs Basophils (Manual) Cancelled Nucleated RBCs Cancelled Hypersegmented Neuts Cancelled Atypical Lymphocytes Cancelled Blast Cells Cancelled Plasma Cells Cancelled Smudge Cells Cancelled Other Cell Type Cancelled Toxic Granulation Cancelled Dohle Bodies Cancelled Monica Rods Cancelled Platelet Estimate Cancelled Clumped Platelets Cancelled Large Platelets Cancelled Giant Platelets Cancelled Polychromasia Cancelled Hypochromasia Cancelled Hyperchromasia Cancelled Poikilocytosis Cancelled Basophilic Stippling Cancelled Anisocytosis Cancelled Microcytosis Cancelled Macrocytosis Cancelled Spherocytes Cancelled Pappenheimer Bodies Cancelled Sickle Cells Cancelled Target Cells Cancelled Tear Drop Cells Cancelled Ovalocytes Cancelled Stomatocytes Cancelled Helmet Cells Cancelled Gilliam-Downey Bodies Cancelled [place] Rings Cancelled [place] Cells Cancelled Crenated Cell Cancelled Acanthocytes (Spur) Cancelled Rouleaux Cancelled Schistocytes Cancelled Sodium 135 L Potassium 4.2 Chloride 101 Carbon Dioxide 30 Anion Gap 4 BUN 12 Creatinine 1.00 Estim Creat Clear Calc 107 Estimated GFR > 60 Glucose 89 POC Capillary Glucose 93 Calcium 8.8 Magnesium 2.0 Total Bilirubin 0.4 AST 42 ALT 32 Alkaline Phosphatase 73 Total Protein 6.0 L Albumin 3.2 L Quality VTE Prophylaxis VTE prophylaxis: mechanical ordered
[2024-07-16 16:00] VITALS: BP 128/72; PULSE 85; RESP 20; TEMP 35.7; O2SAT 99
[2024-07-16] MEDS: HYDROcodone/acetaminophen (*CRX) 10-325 MG TABLET 1 TAB PO (16:05)
[2024-07-16 20:00] VITALS: BP 105/68; PULSE 73; RESP 20; TEMP 36.1; O2SAT 98
[2024-07-16] MEDS: busPIRone HCL 10 MG TABLET BY MOUTH (21:40)
[2024-07-16] MEDS: AMITRIPTYLINE HCL 25 MG TABLET PO (21:40)
[2024-07-16] MEDS: busPIRone HCL 5 MG TABLET BY MOUTH (21:40)
[2024-07-16 23:53] LABS: Glucose Point of Care 95 mg/dl (65-105)
[2024-07-17] VITALS: BP 123/80; PULSE 81; RESP 16; TEMP 36.2; O2SAT 98
[2024-07-17 04:00] VITALS: BP 102/62; PULSE 82; RESP 14; TEMP 36.4; O2SAT 99
[2024-07-17] MEDS: HYDROcodone/acetaminophen (*CRX) 10-325 MG TABLET 1 TAB PO (06:38)
[2024-07-17] MEDS: PROCHLORPERAZINE EDISYLATE 10 MG/2 ML VIAL IV PUSH (06:41)
[2024-07-17 07:46] LABS: Glucose Point of Care 95 mg/dl (65-105)
[2024-07-17 08:00] VITALS: BP 110/65; PULSE 75; RESP 18; TEMP 35.7; O2SAT 97
[2024-07-17] MEDS: SULFAMETHOXAZOLE/TRIMETHOPRIM 800/160 MG DS TABLET 1 TAB PO (08:15)
[2024-07-17] MEDS: buPROPion HCL XL (24 HR) 150 MG TABCR 300 MG PO (08:15)
[2024-07-17] MEDS: PANTOPRAZOLE SODIUM IV 40 MG VIAL IV PUSH (08:16)
[2024-07-17] MEDS: THIAMINE HCL 200 MG/2 ML VIAL 100 MG IV PUSH (08:16)
[2024-07-17] MEDS: busPIRone HCL 10 MG TABLET 30 MG PO (08:16)
[2024-07-17] MEDS: ENOXAPARIN 40 MG/0.4 ML SYRINGE SUB-Q (08:16)
[2024-07-17] MEDS: FLUTICASONE PROPIONATE 0.05% NA SPR 16 GM BTL (*BKC) 2 SPRAY NASAL (08:18)
[2024-07-17] MEDS: FOLIC ACID 1 MG/0.2 ML INJ IV PUSH (08:28)
--- NOTE | 2024-07-17 11:17 | PM.PNGS ---
Progress Note: A&P Assessment and Plan (1) Superficial postoperative wound infection: Code(s): T81.49XA - Infection following a procedure, other surgical site, initial encounter Status: Acute Assessment and Plan: The midline wound has been opened on the top and bottom of the incision leaving two open wounds with a bridge of approximated skin. There is no purulent drainage on exam today and the wounds appear to be healing well. He was educated on how to do wound care at home and plans to do this daily after discharge on his own. He will be discharged with Bactrim for another week for the wound infection. (2) Small bowel perforation: Code(s): K63.1 - Perforation of intestine (nontraumatic) Status: Acute Assessment and Plan: Status post segmental resection and extensive adhesiolysis. He is tolerating a diet and bowels are moving. He is also tolerating activity in ambulating multiple times during the day. He is surgically stable for discharge today. Will have him follow up with Dr. Mccann in the office in the next few weeks. Plan I have discussed the patient's case and plan of care with Dr. Howard. Subjective Subjective Date/Time Seen: 07/17/24 11:17 Post Op day: 14 (Adhesiolysis, small-bowel resection with anastomosis x2) Patient reports: no new complaints, feels better, tolerating a regular diet, voiding w/o difficulty, flatus, bowel movement and afebrile Interval history: Feeling well today. His incisional pain is well controlled. He is moving his bowels and eating well. No nausea today. Exam Const: General: comfortable and no acute distress Orientation/consciousness: patient oriented x3 GI: Inspection: non-distended GI Palp: Yes Soft to palpation, Yes Tenderness to palpation present (GI) (only tenderness at the abdominal wounds) and No Guarding due to palpation present (GI) Auscultation: normal bowel sounds Other: Abdomen is soft and nondistended. Midline incision has been opened on the top and bottom of the incision leaving two open wounds that are being packed with wet to dry dressings. No purulent drainage today. No surrounding erythema. I educated the patient on how to do dressing changes at home. Objective Data Vital Signs Vital Signs: Vital Signs - 24 hr 07/16/24 12:00 07/16/24 16:00 07/16/24 20:00 Temperature 96.2 F L 96.2 F L 96.9 F L Pulse Rate 85 85 73 Respiratory Rate 20 20 20 Blood Pressure 128/72 128/72 105/68 Pulse Oximetry 99 99 98 Oxygen Delivery 07/17/24 00:00 07/17/24 04:00 07/17/24 08:00 Temperature 97.1 F L 97.6 F 96.3 F L Pulse Rate 81 82 75 Respiratory Rate 16 14 18 Blood Pressure 123/80 102/62 110/65 Pulse Oximetry 98 99 97 Oxygen Delivery 07/17/24 08:15 Temperature Pulse Rate Respiratory Rate Blood Pressure Pulse Oximetry Oxygen Delivery Room Air Intake/Output Intake/Output: Intake & Output 07/14/24 07/15/24 07/16/24 07/17/24 23:59 23:59 23:59 23:59 Intake Total 3485.0 2180 1410 550 Output Total 600 800 Balance 2885.0 1380 1410 550 Meds/Results Medications: Active Medications Generic Name Dose Route Start Last Admin Trade Name Freq PRN Reason Stop Dose Admin Hydrocodone Bitart/Acetaminophen 1 tab 07/15/24 12:14 07/16/24 21:39 Hydrocodone/Acetaminophen (*Crx) 5-325 Mg Tablet PO 1 tab Q4H PRN Administration Pain Rated 4-6 Hydrocodone Bitart/Acetaminophen 1 tab 07/16/24 13:39 07/17/24 06:38 Hydrocodone/Acetaminophen (*Crx) 10-325 Mg Tablet PO 1 tab Q6H PRN Administration Pain Rated 7-10 Alprazolam 0.5 mg 07/15/24 16:30 07/16/24 17:34 Alprazolam (*Crx) 0.5 Mg Tablet PO 0.5 mg BID PRN Administration Anxiety Alteplase, Recombinant 2 mg 07/13/24 03:41 07/15/24 05:36 Alteplase 2 Mg Vial (Cathflo) IV PUSH 2 mg ONCE PRN Administration Line Occlusion Amitriptyline HCl 25 mg 07/06/24 21:00 07/16/24 21:40 Amitriptyline Hcl 25 Mg Tablet PO 25 mg HS EMILE Administration Bupropion HCl 300 mg 07/06/24 10:10 07/17/24 08:15 Bupropion Hcl Xl (24 Hr) 150 Mg Tabcr PO 300 mg DAILY EMILE Administration Buspirone HCl 5 mg 07/07/24 21:00 07/16/24 21:40 Buspirone Hcl 5 Mg Tablet BY MOUTH 5 mg HS EMILE Administration Buspirone HCl 30 mg 07/06/24 10:25 07/17/24 08:16 Buspirone Hcl 10 Mg Tablet PO 30 mg DAILY EMILE Administration Buspirone HCl 10 mg 07/06/24 21:00 07/16/24 21:40 Buspirone Hcl 10 Mg Tablet BY MOUTH 10 mg HS EMILE Administration Dextrose 12.5 gm 07/02/24 14:18 Dextrose 50% 25 Gm/50 Ml Syringe IV PUSH PRN PRN Hypoglycemia Protocol Enoxaparin Sodium 40 mg 07/12/24 09:00 07/17/24 08:16 Enoxaparin 40 Mg/0.4 Ml Syringe SUB-Q 40 mg DAILY EMILE Administration Fluticasone Propionate 2 spray 07/06/24 10:10 07/17/24 08:18 Fluticasone Propionate 0.05% Na Spr 16 Gm Btl (*Bkc) NASAL 2 spray DAILY EMILE Administration Folic Acid 1 mg 07/03/24 09:00 07/17/24 08:28 Folic Acid 1 Mg/0.2 Ml Inj IV PUSH 1 mg QAM EMILE Administration Glucagon 1 mg 07/02/24 14:18 Glucagon For Inj 1 Mg Vial IM PRN PRN Hypoglycemia Protocol Guaifenesin 200 mg 07/08/24 21:21 07/08/24 21:31 Guaifenesin 200 Mg/10 Ml Udc PO 200 mg Q4H PRN Administration Cough Dextrose 1,000 mls @ 100 mls/hr 07/02/24 14:18 Dextrose 5% 1,000 Ml IVPB PRN PRN Hypoglycemia Protocol Dextrose 1,000 mls @ 50 mls/hr 07/07/24 10:08 Dextrose 10% IV CONT .Q20H PRN if PN is interrupted Potassium Chloride 60 meq/ 1,030 mls @ 100 mls/hr 07/09/24 10:00 07/15/24 20:39 Dextrose/Sodium Chloride IV CONT 100 mls/hr .[id number] EMILE Administration Ibuprofen 600 mg 07/17/24 11:08 Ibuprofen 600 Mg Tablet PO Q6H PRN Cramping Naloxone HCl 0.1 mg 07/07/24 09:20 07/10/24 00:02 Naloxone Hcl 0.4 Mg/Ml Vial IV PUSH 0.1 mg Q5MIN PRN Administration Opioid Reversal Desvenlafaxine 1 each 07/07/24 09:00 07/17/24 08:18 Succinate 25 Mg Tab PO 08/06/24 08:59 1 each Er DAILY EMILE Administration Pantoprazole Sodium 40 mg 07/05/24 16:00 07/17/24 08:16 Pantoprazole Sodium Iv 40 Mg Vial IV PUSH 40 mg QAM EMILE Administration Phenol 1 spray 07/02/24 12:12 07/13/24 08:41 Phenol/Sod Pheno [place] Mendez (*Bkc) MUCOUS MEM 1 spray PRN PRN Administration Sore Throat Prochlorperazine Edisylate 10 mg 07/06/24 21:57 07/17/24 06:41 Prochlorperazine Edisylate 10 Mg/2 Ml Vial IV PUSH 10 mg Q6H PRN Administration Nausea And Vomiting Sodium Chloride 10 ml 07/07/24 14:09 Central Line Flush IV PUSH PRN PRN with TPN bag changes Sodium Chloride 20 ml 07/07/24 14:09 Central Line Flush IV PUSH PRN PRN after blood draws Sodium Chloride 10 ml 07/07/24 22:00 07/17/24 07:39 Central Line Flush IV PUSH Not Given Q8HR EMILE Thiamine HCl 100 mg 07/03/24 09:00 07/17/24 08:16 Thiamine Hcl 200 Mg/2 Ml Vial IV PUSH 100 mg DAILY EMILE Administration Trimethoprim/Sulfamethoxazole 1 tab 07/15/24 21:00 07/17/24 08:15 Sulfamethoxazole/Trimethoprim 800/160 Mg Ds Tablet PO 1 tab Q12HR EMILE Administration Radiology Results: ITS Impressions Small Bowel X-Ray 07/05/24 18:48 IMPRESSION: Delayed passage into the colon with reduction in caliber of the visualized small bowel, markedly distended on initial evaluation. Chest X-Ray 07/07/24 14:34 IMPRESSION: 1. Stable airspace opacities in the lower lung zones, consistent with atelectasis versus pneumonia. Abdomen/Pelvis CT 07/10/24 08:46 IMPRESSION: 1. Bilateral pneumonia. 2. Small pleural effusions. 3. Dilated small bowel, likely adynamic ileus. 4. Wall thickening of small bowel, consistent with enteritis. Abdomen X-Ray 07/15/24 13:12 IMPRESSION: Gas distended small bowel and colon segments, which may be due to postoperative adynamic ileus Removal of NG tube since 07/14/2024 Labs Labs: Laboratory Results - last 24 hr 07/16/24 07/17/24 23:41 07:29 POC Capillary Glucose 95 95
--- NOTE | 2024-07-17 11:34 | P.DS_ITS ---
DS: Admitting Diagnosis Discharge Date 07/17/24 Admitting Diagnosis abd pain and vomiting DS: Discharge Diagnosis Discharge Diagnosis (1) Small bowel perforation: Code(s): K63.1 - Perforation of intestine (nontraumatic) Status: Acute (2) Pneumonia: Code(s): J18.9 - Pneumonia, unspecified organism Status: Acute (3) Protein-calorie malnutrition, moderate: Code(s): E44.0 - Moderate protein-calorie malnutrition Status: Acute (4) Superficial postoperative wound infection: Code(s): T81.49XA - Infection following a procedure, other surgical site, initial encounter Status: Acute (5) Obstruction of small intestine due to peritoneal adhesion: Code(s): K56.50 - Intestinal adhesions [bands], unspecified as to partial versus complete obstruction Status: Acute (6) Sepsis: Code(s): A41.9 - Sepsis, unspecified organism Status: Acute DS: Summary Hospital Course Hospital Course: 39-year-old male past medical history of anxiety and depression presented to the ER on account of worsening abdominal pain and vomiting. Reported he was in his usual state of health until about 3 days prior to his presentation when he started having diffuse abdominal pain described as dull about 6/10 in intensity constant, associated with vomiting noted noted above 20 episodes of vomiting but denies any blood. Also noted abdominal distension. Presented to the ER on account of his symptoms. Denies any fever, no shortness of breath, chest pain no dysuria no diarrhea. Last bowel movement was on nausea. 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 Inguinal herniorrhaphy. ER evaluation notable temperature 98.3?, pulse rate 120, respiratory 24, blood pressure 145/99 saturation 98% on room air. White count is 13.1, blood sugar 296, CT abdomen showed high-grade small-bowel obstruction with a transition point. Chest x-ray unremarkable. Gen surgery was consulted and patient was eventually taken to OR for bowel resection, OR findings showed bowel perforation as well. Patient was placed on TPN and gradually transitioned to ful diet and he is currently tolerating regular diet. Also managed for sepsis from pneumonia and completed IV abx and currently stable and on room air. Patient has superficial surgical wound infection and he will continue dressing and follow up with surgery as instructed. TYLER, resolved. Patient will follow up with PCP in 3-5 days and GEn surgery as instructed. Topical management Assessment and Plan (1) Sepsis: Code(s): A41.9 - Sepsis, unspecified organism Status: Acute Assessment and Plan: Patient presents with abdominal pain and met SIRS criteria on admission with tachycardic, tachypnea, leukocytosis. UCx negative. BCx NGTD. CXR showed bilateral lower lobe opacities . CT A/P showing no acute infectious process. Infectious etiology unlikely. 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 He has a hx of SBO since with 2 small bowel resections for adhesions but no episodes for about 6 yrs. He did have a left inguinal surgery repair about [address] abd/pelvis 07/02 reviewed Bowel having bowel movement OFF TPN tolerating diet Gen Surg following (3) Acute kidney injury: Code(s): N17.9 - Acute kidney failure, unspecified Status: Resolved Assessment and Plan: Resolved. Cr 5.8 with BUN 38. No prior labs to compare but no hx of CKD. With IV fluids, BUN/Cr normalized. CT A/P showing normal appearing kidneys and bladder [facility] TYLER related to dehydration Creatinine normal, echo resolved. Continue monitoring. (4) Alcohol withdrawal delirium: Code(s): F10.931 - Alcohol use, unspecified with withdrawal delirium Status: Acute Assessment and Plan: Patient with evidence of severe withdrawals on admission. CIWA protocol started. Patient became much improved. Restraints and sitter were discontinued. CIWA score down to 0-2 range Educated about the benefits of abstaining from alcohol Family in the room mention patient was talking about fentanyl. Patient denies taking fentanyl prior to admission. No UDS was performed. (5) Pneumonia: Code(s): J18.9 - Pneumonia, unspecified organism Status: Acute Assessment and Plan: CXR showed bilateral Lower lobes opacities Day 7/ Levaquin, completed abx monitor cultures Time Spent with Patient Time attestation: Total time spent providing and/or coordinating discharge services: DS: Data Data Completed and Pending Completed studies during hospitalization: Pending at discharge 07/06/24 19:20 Surgical [PTH] Routine Surgical [PTH] Routine Labs on day of discharge: Labs from last 24 hours 07/17/24 07/16/24 07:29 23:41 POC Capillary Glucose 95 95 Discharge Plan Discharge Attending physician on discharge: David Hercules Consulting providers: Armand Mccann Discharging Clinician: David Hercules Anticipated Discharge Date/Time: 07/17/24 11:33 Patient Disposition: Home, Self-Care Activity: may shower, no driving and other - see discharge instructions Diet: regular Wound Care Instructions: change dressing daily and other - see discharge instructions Discharge Instructions: General surgery discharge instructions: * Follow-up with Dr. Mccann in 1-2 weeks. Our office will call with the appointment time/date. Call in the next few days if you have any questions or do not receive a call. [phone] * Wound care: Pack your abdominal wounds with saline soaked gauze once daily and cover with dry gauze and tape. You may remove your dressing to take a shower with mild soap and water. * No lifting more than 10 lbs until instructed further by your surgeon at your follow-up. * No driving for a week or while taking narcotic pain medication * You were sent a prescription for pain medication to be taken only as needed for moderate/severe postoperative pain. As your pain is improving, you should transition to over the counter medication, such as Tylenol and Ibuprofen. This can also be taken in between the narcotic pain medication as directed. * You were also sent a prescription for oral antibiotics that should be completed. * If you develop abdominal pain, fever, or vomiting, then call your surgeon or return to the ER. It is important to avoid any alcohol use after discharge. Patient Instructions: Antibiotic Form, Pain Management (DC) Stand Alone Forms: General Discharge Information Follow-up/Referrals: Armand Mccann MD [Physician] - Keep Reg. Scheduled Appt. Discharge Medications: New hydrocodone-acetaminophen 5-325 mg Tablet 1 tablet PO Q6H PRN (Reason: Pain Rated 4-6) Qty: 20 0RF sulfamethoxazole-trimethoprim 800-160 mg Tablet 1 tab PO Q12HR 7 Days Qty: 14 0RF Continued cetirizine 10 mg Tablet 10 mg PO DAILY hydrocodone-acetaminophen 5-325 mg tablet 1 tablet PO Q4H PRN (Reason: Pain from bowel obstruction) ondansetron HCl 8 mg tablet 8 mg PO Q8H PRN (Reason: Nausea And Vomiting) acetaminophen-codeine 300-30 mg tablet 1 tablet PO Q6H PRN (Reason: Incisional pain) omeprazole 40 mg capsule,delayed release(DR/EC) 40 mg PO DAILY alprazolam 0.5 mg tablet 0.5 mg PO BID PRN (Reason: Anxiety) amitriptyline 25 mg tablet 25 mg PO HS docusate sodium [Colace] 100 mg Capsule 100 mg PO HS montelukast 10 mg tablet 10 mg PO DAILY fluticasone propionate [Flonase] 50 mcg/actuation [place],Suspension 2 spray INTRANASAL DAILY Rx Instructions: administer into each nostril buspirone 15 mg tablet 45 mg DAILY bupropion HCl 300 mg tablet extended release 24 hr 300 mg PO DAILY desvenlafaxine succinate 25 mg tablet extended release 24 hr 25 mg PO DAILY Date of admission: 07/02/24 10:07 Primary Care Provider: UNKNOWN,DOCTOR Admitting Provider: David Hercules Attending physician on admission: David Hercules Condition: Serious
[2024-07-17] MEDS: IBUPROFEN 600 MG TABLET PO (11:43)
[2024-07-17 12:00] VITALS: BP 122/71; PULSE 79; RESP 16; TEMP 36.1; O2SAT 99
== END 2024-07-17 13:12 | disposition home or self-care (01) | DRG 853 ==
LOC: ANHED 10:07 → ANHIMU 10:41 → ANH3MEDSUR 07-05 17:02
PROVIDERS: Emergency Medicine; Family Medicine; General Practice; Nurse Practitioner Adult Health; Nurse Practitioner Family; Surgery; Admitting Provider Internal Medicine; Emergency Provider General Practice; Visit Provider Internal Medicine
PROC: 0DB80ZZ Excision of Small Intestine, Open Approach (ICD-10-PCS; CPT 49000; principal; 2024-07-06 17:30)
DX: A41.9 Sepsis, unspecified organism (principal); J18.9 Pneumonia, unspecified organism; K63.1 Perforation of intestine (nontraumatic); N17.9 Acute kidney failure, unspecified; K56.52 Intestinal adhesions [bands] with complete obstruction; K91.71 Accidental puncture and laceration of a digestive system organ or structure during a digestive system procedure; K56.0 Paralytic ileus; T81.49XA Infection following a procedure, other surgical site, initial encounter; E44.0 Moderate protein-calorie malnutrition; F10.231 Alcohol dependence with withdrawal delirium; F41.9 Anxiety disorder, unspecified; F32.A Depression, unspecified; E86.0 Dehydration; R73.9 Hyperglycemia, unspecified; R44.1 Visual hallucinations
CPT/HCPCS: 36415; 36569; 71045; 74018; 74176; 74177; 74250; 80048; 80053; 81001; 82948; 83036; 83605; 83690; 83735; 83880; 84100; 84466; 84478; 85025; 85027; 85055; 85610; 85730; 86140; 86850; 86900; 86901; 87040; 87086; 88307; 93005; 96361; 96374; 96375; 96376; 99285; A9270; J0330; J0696; J0780; J1100; J1171; J1200; J1650; J1741; J1836; J1956; J2003; J2060; J2250; J2270; J2310; J2371; J2405; J2470; J2704; J2997; J3010; J3411; J3480; J7030; J7120; Q9967

== ENCOUNTER 2024-07-25 11:56 | Inpatient (IN) | payer BC, SELFPAY ==
[2024-07-24] VITALS (8 sets, daily range): BP systolic 108–132; BP diastolic 68–95; PULSE 104–128; RESP 10–19; TEMP 36.4–36.6; O2SAT 94–100; BMI 23.7
[2024-07-24] MEDS: LACTATED RINGERS 1,000 ML 30 ML IV CONT ×2 (13:55→19:25)
--- NOTE | 2024-07-24 14:12 | WPDANESEPPF ---
Anes - Initial Pre Proc Eval Procedure: Operation Date: 07/24/24 13:30 Proposed Procedures p Repair Abdominal Wound Dehiscence - Armand Mccann MD Date/Time: 07/24/24 14:12 Surgeon: Armand Mccann MD Pre Op Diagnosis: abd wound dehiscence Patient Data Age: 39 Gender: M Height: 1.91 m Weight: 86.2 kg Allergies Allergy/AdvReac Type Severity Reaction Status Date / Time Penicillins Allergy Unknown Verified 07/24/24 10:27 Home Medications Medication Instructions Recorded Confirmed Type acetaminophen 300 mg-codeine 30 mg 1 tablet PO Q6H PRN Incisional pain 07/02/24 07/02/24 History tablet alprazolam 0.5 mg tablet 0.5 mg PO BID PRN Anxiety 07/02/24 07/02/24 History amitriptyline 25 mg tablet 25 mg PO HS 07/02/24 07/02/24 History bupropion HCl 300 mg 24 hr tablet, 300 mg PO DAILY 07/02/24 07/02/24 History extended release buspirone 15 mg tablet 45 mg DAILY 07/02/24 07/02/24 History cetirizine 10 mg tablet 10 mg PO DAILY 07/02/24 07/02/24 History desvenlafaxine succinate 25 mg 25 mg PO DAILY 07/02/24 07/02/24 History tablet,extended release 24 hr docusate sodium 100 mg capsule 100 mg PO HS 07/02/24 07/02/24 History (Colace) fluticasone propionate 50 2 spray intranasal DAILY 07/02/24 07/02/24 History mcg/actuation nasal spray,suspension montelukast 10 mg tablet 10 mg PO DAILY 07/02/24 07/02/24 History omeprazole 40 mg capsule,delayed 40 mg PO DAILY 07/02/24 07/02/24 History release ondansetron HCl 8 mg tablet 8 mg PO Q8H PRN Nausea And Vomiting 07/02/24 07/02/24 History hydrocodone 5 mg-acetaminophen 325 1 tablet PO Q6H PRN Pain Rated 4-6 07/17/24 Rx mg tablet #20 tabs sulfamethoxazole 800 1 tab PO Q12HR 7 days #14 tabs 07/17/24 Rx mg-trimethoprim 160 mg tablet promethazine 12.5 mg tablet 12.5 mg PO Q6H PRN nausea and 07/18/24 Rx vomiting #10 tabs Patient hx anesthesia problems: none Family hx anesthesia problems: none Results Review: All pre-operative results and documents have been reviewed as part of the pre-operative evaluation. [facility] Past Medical History Medical History Small bowel obstruction Surgical History Surgical History H/O lysis of adhesions H/O resection of small bowel Family History Family History Grandparent Acute myocardial infarction Cerebrovascular accident Congestive heart failure Hypertension Other Congestive heart failure Grandparent Acute myocardial infarction Congestive heart failure Diabetes mellitus Hypertension Breast cancer Grandparent Acute myocardial infarction Congestive heart failure Hypertension Father Congestive heart failure Hypertension Social History Social History Smoking status: Unknown if ever smoked Alcohol intake: current Drinks per week: 5 Substance use: never Do You Feel Safe in your Home?: Yes Lack of Transportation: No Lack of Food: Never True Current Housing: I Have Housing Concerned About Future Housing: No Difficulty Paying Gas/Electric Bills: No Difficulty Paying for Meds: No Currently Unemployed: No Education: Master's Degree or Higher Difficulty w/ Childcare or Family Care: No Spiritual care concerns: No Anes - Eval Final PreProcedure Day of Procedure 07/24/24 14:12 Patient weight: normal Heart: regular rate and rhythm Lungs: clear to auscultation Airway: Mallampati scale class II Neurological: alert and oriented Last oral intake: >/= 8 hours ASA classification: II Emergent: no Anesthetic plan: proceed Anesthesia type and monitoring: general ETT and standard monitoring Results Review: All pre-operative results and documents have been reviewed as part of the pre-operative evaluation. Informed Consent: The patient's anesthetic plan and its attendant risks and benefits were discussed with the patient/family/POA. Questions were solicited and answers provided to the satisfaction of the patient/family/POA.
--- NOTE | 2024-07-24 14:23 | WPDHPUPDATE1 ---
History and Physical Update Update Date/Time: 07/24/24 14:23 History and Physical has been reviewed, including an updated exam of the patient. There are NO changes in the patient's condition. Risks, benefits, and alternatives have been discussed and questions answered. Patient agrees to proceed with procedure.
[2024-07-24] MEDS: ceFAZolin 2 GM/D5W 50 ML 2 GM/50 ML BAG IVPB (14:28)
[2024-07-24 16:57] LABS: Basophils Absolute Auto 0.1 K/mm3 (0.0-0.1); Basophils Percent Auto 0.4 % (0.2-1.2); Eosinophils Absolute Auto 0.2 K/mm3 (0-0.3); Eosinophils Percent Auto 1.6 % (0-4.4); Hemoglobin 10.5 g/dL (14.0-18.0); Immature Granulocyte Absolute 0.13 K/mm3 (0.00-0.031); Lymphocytes Absolute Auto 1.08 K/mm3 (0.9-3.2); Lymphocytes Percent Auto 8.4 % (18.3-44.2); Mean Corpuscular HGB Conc 32.8 g/dl (32-36); Mean Corpuscular Hemoglobin 30.8 pg (26-34); Mean Corpuscular Volume 93.8 fl (80-100); Monocytes Absolute Auto 0.5 K/mm3 (0.1-0.6); Monocytes Percent Auto 3.6 % (2.6-8.5); Platelet Count Result 208 k/mm3 (150-375); Red Blood Count 3.41 M/mm3 (4.6-6.20); Red Cell Distribution Width 12.6 % (11.5-14.5); White Blood Count 12.9 K/mm3 (4.5-10.0)
[2024-07-24] MEDS: ceFAZolin SODIUM 1 GM VIAL 2 GM IV PUSH (18:52)
--- NOTE | 2024-07-24 19:21 | W.PM.PROC2 ---
Procedure Note - Detailed Date of Procedure 07/24/24 Pre-op Diagnosis abd wound dehiscence with evisceration, small-bowel obstruction due to adhesions Post-op Diagnosis Same Procedure Performed Repair fascial dehiscence, extensive adhesiolysis for small bowel obstruction, repair enterotomy x2 Surgeon Armand Mccann MD Phlebotomist Lab Assistant Lina WATERS, TJ Horton Anesthesia General Indications Patient underwent laparotomy with small-bowel resection for bowel perforation due to small-bowel obstruction on 07/06/24. He was able to be discharged from the hospital 8 days ago but about 3 days after discharge he became nauseated. Couple days later he started vomiting profusely. Yesterday he noticed some abnormal tissue protruding from the upper aspect of his abdominal wound. He came to the office today and was seen due to the protrusion of abnormal tissue. He was noted to have fascial dehiscence with evisceration, his history and exam are also very suggestive of recurrent small-bowel obstruction due to adhesions. He is taken to surgery today emergently for the dehiscence and evisceration as well as treatment of small-bowel obstruction. Findings The evisceration was was some transverse colon epiploica with transverse colon underneath and slightly eviscerarated as well. On opening the abdomen, patient had massive jejunal dilatation and extensive upper abdominal adhesions. The jejunum to about the distal jejunum was involved in a very tightly adhesed dilated mass of intestine. The point of obstruction was distal to the resection performed on 07/06/2024. The adhesions were very dense and the adhesiolysis was exceedingly difficult taking over 3 hours to perform. Two small enterotomies were made and were repaired despite best efforts to avoid enterotomy, due to the nature of the dense and difficult adhesions. No other significant findings were noted Description of Procedure Patient was taken to surgery and induced into general anesthesia. The abdomen was prepped and draped. Sin catheter was placed. Attention was turned 1st to the eviscerated area in the upper aspect of the wound. Gentle blunt dissection was used and on the patient's left side, I was able to gain access to the peritoneal cavity. From there, slow dissection that was mostly blunt in nature but also the use of some cautery, was performed. Adhesions both to the left side and the right side of the anterior abdominal wall were taken down with the cautery taking care not to injure any bowel. With this completed, it was necessary to open the entire wound so that an adequate closure could be performed. I then slowly worked from the area of dehiscence caudally down and reopened the entire incision. The previously placed PDS sutures were removed as they were encountered. Omentum and colon We then took down additional anterior abdominal wall adhesions until the anterior abdominal wall was free of adhesions and general exploration could be carried out. As mentioned above, the transverse colon epiploica were what was visible at the dehiscence but the transverse colon was also part of the evisceration. The bowel in the abdomen was extremely dilated and there were many, many adhesions. We started at the cecum and found the distal ileum. This was decompressed and we followed this retrograde. As I mentioned above, the adhesions from the distal jejunum and ileum were all typical adhesions 1 would expect. From the distal jejunum proximal, the bowel was extremely dilated, in some areas it was dilated 12-15 cm. There were dense adhesions between loops of bowel, between bowel and transverse colon, omentum and mesentery also were adherent. There were or several areas where it appeared sutures had been placed to cause a plication of the bowel. I found 1 old anastomosis which was kinked and appeared to be the point of obstruction. This anastomosis was distal to the anastomosis I had performed on 07/06/2024. With perseverance and great care, all the adhesions to the proximal 2/3 of jejunum a were taken down. These were particularly difficult in areas where previous suture had been placed. I was of course concerned when I saw previous suture that this was an area of a prior resection and anastomosis. However, many of these sutured areas did not have any anastomosis associated and brought about the concern for a previous plication of some sort. These were some of the densest adhesions. Cautery was used for hemostasis. As I mentioned, despite my best efforts, there were 2 small enterotomies made trying to separate the bowel loops. Each of these was is repaired in 2 layers with a deep layer of interrupted 4-0 chromic suture, followed by 4-0 silk L[place]t interrupted sutures to bury the initial closure. Both repairs looked quite good. Eventually, enough of the bowel had been freed that I was able to evacuate much of the enteric fluid into the stomach and evacuated with the nasogastric tube. Eventually 1700 cc of enteric fluid were evacuated in this manner. Once the point of obstruction had been relieved by adhesiolysis, the more distal bowel began to dilate as the small bowel gas and fluid was passing on distally. When we were done with the adhesiolysis and enterotomy repair, I carefully ran the entire small bowel 3 different times looking for any sign of a partial injury that could later result in a bowel perforation. I did close a couple of serosal injuries with interrupted 4-0 silk suture. These may have been fine but for an additional margin of safety, I did close these as well. We then placed the abdominal contents back in its general anatomic location with the small intestine in gentle S shaped curves. The nasogastric tube had been positioned in the stomach appropriately. The omentum was positioned as an apron over the viscera. The abdomen was then closed to prevent further dehiscence and evisceration. Bidirectional running 1. Looped PDS suture was placed. As the PDS suture was being placed, for 1. Prolene sutures were placed as retention sutures. Once the fascia was closed, I placed 1 in iodoform Nu Gauze over the open abdominal wound. Bumpers were then placed on the retention sutures and each of these sutures were tied down. Bulky fluffs and ABDs were used to finally cover the wound. Medipore tape was used to secure the wound dressing. Sponge and needle counts were correct x2 Estimated Blood Loss -200 Drains Yes (Nasogastric tube, Sin catheter) Packing Yes (1 in iodoform Nu Gauze in the abdominal wound) Pathology None sent Complications None Condition Stable Disposition PACU (Extubated and recovered in PACU and then transferred to ICU) [facility] Billing Surgery - Charge Forward: Surgery Billing (Repair fascial dehiscence, extensive adhesiolysis with-22 modifier, repair enterotomy x2)
[2024-07-24] MEDS: fentaNYL CITRATE INJ (*CRX) 100 MCG/2 ML VIAL 25 MCG IV PUSH ×8 (19:28→20:16)
[2024-07-24] MEDS: ONDANSETRON INJ 4 MG/2 ML VIAL IV PUSH (19:30)
[2024-07-24] MEDS: HYDROmorphone HCL INJ (*CRX) 1 MG/ML SYR 0.25 MG IV PUSH ×6 (19:50→20:30)
[2024-07-24] MEDS: LACTATED RINGERS 1,000 ML 100 ML IV CONT (21:10)
[2024-07-24] MEDS: HYDROmorphone HCL INJ (*CRX) 1 MG/ML SYR IV PUSH ×2 (21:13→23:29)
[2024-07-24] MEDS: FAMOTIDINE 20 MG/2 ML VIAL IV PUSH (21:15)
[2024-07-24] MEDS: IBUPROFEN IV 800 MG/200 ML 800 MG/200 ML BAG 400 MG IVPB (21:19)
--- NOTE | 2024-07-24 21:24 | ADMGEN ---
This patient, Vin Morris, was admitted to Intensive Care Unit-4. Patient/family oriented to hospital policies and general routines including ID bracelet, bed and alarms, visiting hours, pain management, procedures, bathroom and other care routines, personal items, smoking policy, room service/diet, and visiting hours. Information on how to activate the Rapid Response Team has been discussed. Patient/Family are encouraged to report perceived risks to care and to ask questions if they do not understand what they are told or what they should do.
[2024-07-25] VITALS (11 sets, daily range): BP systolic 81–134; BP diastolic 61–89; PULSE 114–144; RESP 13–26; TEMP 36.4–37.4; O2SAT 94–98; BMI 23.8
--- NOTE | ~2024-07-25 | XR_ITS ---
EXAM: XR abdomen/kub 1V DATE: 07/25/2024 14:54 HISTORY: f/u sbo, adhesiolysis . COMPARISON: 07/15/2024. FINDINGS: Clear lung bases. Interval removal of the midline surgical sandor. NG tube, tip and side port over the stomach. Single loop of mildly dilated small bowel overlying the midline lower abdomen. Nondilated large bowel. Anastomotic suture lines over the left and right mid abdomen. IMPRESSION: Single loop of mildly dilated small bowel over the lower midline abdomen, may represent r esolving or focal ileus. Early recurrent obstruction not excluded. Reviewed, dictated and finalized at location K. LAR ALARM OPERATOR IMPRESSION: Single loop of mildly dilated small bowel over the lower midline ab domen, may represent resolving or focal ileus. Early recurrent obstruction not excluded.
--- NOTE | ~2024-07-25 | XR_ITS ---
EXAMINATION: XR fluoroscopy <1hr DATE: 08/01/2024 13:03 INDICATION: Adjustment of kinked left upper extremity peripherally inserted central venous catheter TECHNIQUE: I provided real-time fluoroscopy during repositioning of a left upper extremity PICC line performed by the PICC line nurse, Bette Zeng. 3 fluoroscopic images were recorded. The catheter fl ushed without resistance and with good blood return through both ports of the catheter at the conclus ion of the procedure. The amount of fluoroscopy time used during this procedure was 0.9 minutes. COMPARISON: Chest radiograph dated 08/01/2024 FINDINGS: Images demonstrate a wire advanced into the left upper cavity peripherally inserted central venous ca theter resulting straightening of the preceding kink in the catheter which was located in the region of the axilla. On the final image following removal of the wire the catheter is normally configured w ith distal tip near the superior cavoatrial junction. And nasogastric tube with distal tip in the sto mach. IMPRESSION: 1. Repositioning of a left upper extremity peripherally inserted central venous catheter with resolut ion of the prior kink which was located in the region of the axillary vein with distal tip currently at the superior cavoatrial junction. Reviewed, dictated and finalized at location A. GER POLICY IMPRESSION: 1. Repositioning of a left upper extremity peripherally inserted central venous catheter with resolution of the prior kink which was located in the region of the axillary vein with distal tip currently at the superior cavoatrial junction .
--- NOTE | ~2024-07-25 | XR_ITS ---
Supine and upright views of the abdomen Clinical history: Postoperative ileus COMPARISON: 07/31/2024 Findings: NG tube in place. Bowel gas pattern is nonspecific. No evidence for obstruction or free air . No abnormal mass lesion or calcification is seen. Osseous structures are intact. Impression: NG tube in place. Nonspecific bowel gas pattern. Reviewed, dictated and finalized at [facility]. IX OPERATOR CONCENTRATE Impression: NG tube in place. Nonspecific bowel gas pattern.
--- NOTE | ~2024-07-25 | XR_ITS ---
EXAMINATION: XR abdomen gastric tube rechec DATE: 07/31/2024 12:28 INDICATION: Nasogastric tube placement TECHNIQUE: A supine view of the abdomen and lower chest was obtained for evaluation of feeding tube placement. COMPARISON: CT dated 07/31/2024 FINDINGS: Nasogastric tube tip in proximal side port in the body the stomach. There are multiple loops of gas-f illed large and small bowel with mild dilation of a loop of small bowel in the left upper quadrant. T here are some excreted contrast in bilateral renal collecting systems from the recent prior contrast enhanced CT. IMPRESSION: 1. Nasogastric tube in the stomach. 2. Nonspecific bowel gas pattern and favor ileus over obstruction. Reviewed, dictated and finalized at location A. NE FIREMAN
--- NOTE | ~2024-07-25 | XR_ITS ---
EXAMINATION: XR abdomen gastric tube rechec DATE: 07/28/2024 16:26 INDICATION: Nasogastric tube placement. TECHNIQUE: A supine view of the abdomen was obtained. COMPARISON: Abdomen radiograph at 9:34 AM, CT abdomen and pelvis 07/10/2024 FINDINGS: The lower abdomen is excluded. There are multiple dilated loops of small bowel. The nasogas tric tube tip is in the stomach. There is a central line tip in the right atrium. There are airspace opacities at the lung bases, left worse than right. IMPRESSION: 1. Nasogastric tube tip in the stomach. 2. Dilated small bowel, likely adynamic ileus. 3. Airspace opacities at the lung bases, left worse than right, consistent with atelectasis versus pn eumonia. Reviewed, dictated and finalized at location A. DIRECTOR IMPRESSION: 1. Nasogastric tube tip in the stomach. 2. Dilated small bowel, likely adynamic ileus. 3. Airspace opacities at the lung bases, left worse than right, consistent with atelectasis versus pneumonia.
--- NOTE | ~2024-07-25 | CT_ITS ---
EXAMINATION: CT abdomen pelvis w con DATE: 07/31/2024 10:00 INDICATION: Leukocytosis. Ileus post adhesiolysis for small bowel obstruction. TECHNIQUE: Computed tomography (CT) of the abdomen and pelvis was performed with 100 mL Omnipaque-350 intravenous contrast. Automated exposure control and iterative reconstruction technique were employe d. The dose-length product was 591.26 mGy-cm. COMPARISON: 07/10/2024 FINDINGS: Persistent regions of consolidation with associated volume loss in the bilateral lower lobes consiste nt with atelectasis. The surrounding centrilobular groundglass nodules consistent with pneumonia have resolved although difficult to exclude residual pneumonia in the collapsed portions of the lower lob es. Decrease in size of a now very small left pleural effusion and resolution of the prior small righ t pleural effusion. Heart size is normal. No pericardial effusion. Liver, gallbladder, spleen, pancreas, bilateral adrenal glands and kidneys are normal. Small amount o f gas within the bladder. Correlate for recent instrumentation or Sin catheterization. No pathologi darcy enlarged abdominal or pelvic lymphadenopathy. Mild lumbar and mild to moderate lower thoracic s pondylosis with chronic likely physiologic mild anterior wedging at T11-L1. Small amount of stool scattered throughout the colon. Persistent dehiscent midline surgical wound. Th ere are suture lines likely related to a couple small bowel anastomosis in the mid and right abdomen. There are multiple fluid-filled loops of small bowel, couple of which the left upper quadrant are mi ldly dilated measuring up to 3.7 cm in maximal diameter which tapers gradually with no discrete trans ition point to suggest obstruction is most likely represents a postoperative ileus. The associated wa ll thickening of a few segments of small bowel has significantly improved. There is a new 6.8 x 6.3 x 6.3 cm likely rim-enhancing intraperitoneal fluid collection in the deep p sean. There are 4 additional smaller loculated fluid collections situated amongst the loops of small bowel measuring 5.6 x 3.2 x 3.9 cm loculated fluid collection in the right abdomen and 3.8 x 2.2 x 1 .1 cm fluid collection in the left upper quadrant, 3.0 x 1.7 x 2.8 cm with small focus of internal ga s situated in the left lower quadrant. And 6.4 x 3.2 x 3.0 cm also a small focus of internal gas more caudally in the left lower quadrant. There are a few additional scattered foci of free intraperitone al gas without associated fluid collections in the abdomen and pelvis. IMPRESSION: 1. Postoperative changes in the abdomen and pelvis with a couple likely small bowel anastomoses. 2. Significant decrease in the previously seen wall thickening of the small bowel with a few mildly d ilated loops of small bowel without a discrete transition point and would favor ileus over obstructio n. 3. Few scattered foci of free intraperineal gas along with several new loculated fluid collections in the abdomen and pelvis suspicious for abscesses. The persistence of free gas approximately 3 weeks p ost surgery suggests possible residual bowel perforation or anastomotic breakdown. Could consider rep eat CT with water-soluble oral contrast material. 4. Significant improvement in likely resolution of the prior pneumonia in the bilateral lower lobes w ith atelectasis with volume loss in the bilateral lower lobes. Residual pneumonia in the collapsed po rtion of the lungs cannot be optimally excluded. 5. Resolution of the prior small right pleural effusion and significant decrease in size of a now romana y small left pleural effusion. 6. Cardiomegaly. Reviewed, dictated and finalized at location A. OSAL MANAGER IMPRESSION: 1. Postoperative changes in the abdomen and pelvis with a couple likely small b owel anastomoses. 2. Significant decrease in the previously seen wall thickening of the small bow el with a few mildly dilated loops of small bowel without a discrete transition point and would favor ileus over obstruction. 3. Few scattered foci of free intraperineal gas along with several new loculate d fluid collections in the abdomen and pelvis suspicious for abscesses. The per sistence of free gas approximately 3 weeks post surgery suggests possible resid ual bowel perforation or anastomotic breakdown. Could consider repeat CT with w ater-soluble oral contrast material. 4. Significant improvement in likely resolution of the prior pneumonia in the b ilateral lower lobes with atelectasis with volume loss in the bilateral lower l obes. Residual pneumonia in the collapsed portion of the lungs cannot be optima lly excluded. 5. Resolution of the prior small right pleural effusion and significant decreas e in size of a now very small left pleural effusion. 6. Cardiomegaly.
--- NOTE | ~2024-07-25 | XR_ITS ---
XR abdomen gastric tube insert INDICATION: Evaluate NG tube position. TECHNIQUE: Limited KUB perform for evaluating NG tube . COMPARISON: 07/11/2024 FINDINGS: NG tube tip in the stomach. Visualized bowel gas pattern is unremarkable. IMPRESSION: 1: NG tube tip in the stomach. Reviewed, dictated and finalized at location B. E PURIFIER
--- NOTE | ~2024-07-25 | XR_ITS ---
Supine and upright views of the abdomen Clinical history: Ileus COMPARISON: 07/28/2024 Findings: Bowel gas pattern is nonspecific, some air distended loops of bowel present.. No evidence f or obstruction or free air. No abnormal mass lesion or calcification is seen. Osseous structures are intact. Impression: Nonspecific bowel gas pattern. [place]ed, dictated [place] [facility] [place] GER RETIREMENT Impression: Nonspecific bowel gas pattern.
--- NOTE | ~2024-07-25 | CT_ITS ---
EXAMINATION: CT guide absc cath placement DATE: 08/01/2024 12:32 INDICATION: Pelvic abscess TECHNIQUE: The procedure including the risks and benefits was discussed with the patient. Risks discu ssed included bleeding, infection, nerve injury and allergic reaction. The patient understood the ris ks and benefits and agreed to proceed. The patient was confirmed to be receiving appropriate antibiot ic coverage. The skin overlying the abdomen was prepped and draped in usual sterile fashion. Anesth etic was administered with 1% lidocaine subcutaneously. Conscious sedation was obtained with 50 mcg f entanyl and 1 mg Versed IV. A 8 Fr catheter was inserted into the peritoneal fluid collection by troc ar technique. The metal stiffener and trocar needle were removed, and the pigtail tip was locked. The catheter was stitched to the skin with suture. There were no immediate complications. The dose-lengt h product was 429.71 mGy-cm. FINDINGS: CT images demonstrate the catheter within the fluid collection. 15 mL fluid was aspirated f or testing. IMPRESSION: 1. Successful CT-guided pelvic abscess drainage. 2. 15 mL fluid was sent for aerobic and anaerobic cultures. 3. The catheter will be managed by Dr. Mccann. Reviewed, dictated and finalized at location A. ICE LINE BUS CLEANER
--- NOTE | ~2024-07-25 | XR_ITS ---
XR repositioning feeding tube INDICATION: Evaluate NG tube position. TECHNIQUE: Limited KUB perform for evaluating NG tube . COMPARISON: 07/25/2024 FINDINGS: NG tube tip in the stomach. Visualized bowel gas pattern is nonspecific. IMPRESSION: 1: NG tube tip in the stomach. Reviewed, dictated and finalized at location B. WAY PATROL OFFICER
--- NOTE | ~2024-07-25 | XR_ITS ---
XR chest 1V portable Ordering provider: Armand Mccann MD History: 39 years Male with . Confirm no shift/movement of PICC line . Comparison: July 07, 2024 FINDINGS: MEDIASTINUM: The cardiac silhouette is slightly enlarged. Left PICC line is seen with the tip overlyi ng the superior vena cava. Possible kink in the left axillary area is marked excluded. Nasogastric tu be with the tip in the stomach. LUNGS: No infiltrates, effusions or pneumothorax. OTHER: No free air under the diaphragm. IMPRESSION: No acute cardiopulmonary pathology. Left PICC line with the tip overlying superior vena cava. Possible kink in the left axillary area. Reviewed, dictated and finalized at location A. ING CLERK
--- NOTE | ~2024-07-25 | XR_ITS ---
XR abdomen/kub 1V 08/04/2024 10:59 INDICATION: Nausea with poor appetite TECHNIQUE: KUB COMPARISON: None FINDINGS: Bowel gas pattern is nonobstructive. Surgical changes present in the left mid abdomen. Ther e is a coiled catheter in the pelvis. There is no evidence of free air, mass, organomegaly, ascites o r obstruction. No abnormal calculi are seen. The bones appear intact. IMPRESSION: 1: No acute abdominal abnormality identified. Reviewed, dictated and finalized at location B. IMEDIA EDUCATIONAL SPECIALIST
--- NOTE | ~2024-07-25 | XR_ITS ---
EXAMINATION: XR abdomen gastric tube insert DATE: 07/28/2024 00:40 INDICATION: Nasogastric tube placement TECHNIQUE: A supine view of the abdomen and lower chest was obtained for evaluation of feeding tube placement. COMPARISON: 07/26/2024 FINDINGS: Nasogastric tube tip in proximal side port in the body of the stomach. There are multiple gas-filled but not frankly dilated loops of bowel throughout the abdomen in a nonspecific bowel gas pattern. Mil d opacities at the bilateral lung bases which could represent atelectasis or pneumonia. IMPRESSION: 1. Nasogastric tube in the stomach. 2. Nonspecific bowel gas pattern. 3. Mild bibasilar opacities which could represent atelectasis or pneumonia. Reviewed, dictated and finalized at location A. TATION SUPERINTENDENT
--- NOTE | ~2024-07-25 | XR_ITS ---
EXAMINATION: XR sm bowel follow through WS DATE: 08/02/2024 13:25 INDICATION: Small bowel obstruction TECHNIQUE: Oral contrast was administered by the patient's existing nasogastric tube, and sequential radiographs of the abdomen were obtained until oral contrast was noted to be in the proximal colon. A total of 5 radiographs were obtained. COMPARISON: KUB dated 08/02/2024 FINDINGS: Nasogastric tube in stomach. Right gluteal percutaneous abscess drain with loops formed in the centra l pelvis. Anastomotic suture lines are seen in the left abdomen. Transit time from the stomach to pr oximal colon was approximately 2-2.75 hours. There is transient mild dilation of the loop of small karen wel in the left lower quadrant on the 2 hour image. There is normal caliber and mucosal fold pattern throughout the small bowel on the final image. IMPRESSION: 1. No persistently dilated loops of small bowel to suggest obstruction with normal transit time to th e colon of 2-2.75 hours.. Reviewed, dictated and finalized at location A. DDED PROCESSOR IMPRESSION: 1. No persistently dilated loops of small bowel to suggest obstruction with nor mal transit time to the colon of 2-2.75 hours..
--- NOTE | ~2024-07-25 | XR_ITS ---
Supine and upright views of the abdomen Clinical history: NG tube placement Findings: NG tube in satisfactory position. Dilated small bowel loops in the upper abdomen are compat ible with small bowel obstruction. No free air evident. No abnormal mass lesion or calcification is s een. Osseous structures are intact. Impression: NG tube in place. Small bowel obstruction. Reviewed, dictated and finalized at location . ER MACHINE OPERATOR Impression: NG tube in place. Small bowel obstruction.
--- NOTE | ~2024-07-25 | XR_ITS ---
EXAMINATION: XR fluoroscopy <1hr DATE: 08/04/2024 12:00 INDICATION: Right transgluteal drainage catheter removal TECHNIQUE: The right transgluteal drain and the surrounding skin was prepped and draped in usual ster ile fashion. The catheter was cut and a J-wire advanced to the distal loop of the catheter. There was some resistance to passage of the wire resulting from some clot in the distal half of the catheter. This also adhered to the string within the catheter requiring some manipulation of the wire and rodney ter to unform the loop. Within the loop was unformed the catheter was withdrawn. Anabiotic ligament a nd a sterile dressing were applied to the catheter access site. There were no immediate complications . Fluoroscopy exposure time was 0.7 minutes. Total DAP was 5.708 Gycm^2 FINDINGS: Real-time fluoroscopy demonstrates the formed loop of the right transgluteal drain project over the central pelvis. The recorded image demonstrates the J-wire within the unformed loop of the c atheter, both which were subsequently withdrawn. IMPRESSION: 1. Successful fluoro-guided removal of a wire of a right transgluteal abscess drainage catheter. Reviewed, dictated and finalized at location A. STRIAL EDUCATION INSTRUCTOR IMPRESSION: 1. Successful fluoro-guided removal of a wire of a right transgluteal abscess d rainage catheter.
--- NOTE | ~2024-07-25 | XR_ITS ---
EXAMINATION: XR abdomen gastric tube rechec DATE: 07/29/2024 11:47 INDICATION: Nasogastric tube advancement TECHNIQUE: A supine view of the abdomen and lower chest was obtained for evaluation of feeding tube placement. COMPARISON: 07/28/2024 FINDINGS: Is a gastric tube tip in proximal side port in the body the stomach. Persistent gas-filled loops of b owel throughout the visualized abdomen without gato dilation and would favor ileus over obstruction. Mild opacities at the bilateral lung bases which could represent atelectasis or pneumonia. Heart siz e is normal. IMPRESSION: 1. Nasogastric tube in the stomach. 2. Multiple gas-filled but not frankly dilated loops of bowel and favor ileus over obstruction. 3. Opacities at the bilateral lung bases which could represent atelectasis and/or pneumonia. Reviewed, dictated and finalized at location A. OPHANE TESTER IMPRESSION: 1. Nasogastric tube in the stomach. 2. Multiple gas-filled but not frankly dilated loops of bowel and favor ileus o romana obstruction. 3. Opacities at the bilateral lung bases which could represent atelectasis and/ or pneumonia.
--- NOTE | ~2024-07-25 | XR_ITS ---
EXAMINATION: XR_[id number]_CR DATE: 07/28/2024 15:48 INDICATION: Nasogastric tube placement. TECHNIQUE: A supine view of the abdomen was obtained. COMPARISON: Abdomen radiograph at 9:34 AM, CT abdomen and pelvis 07/10/2024 FINDINGS: The lower abdomen is excluded. There are multiple dilated loops of small bowel. The nasogas tric tube tip is in the stomach. There is a central line tip in the right atrium. There are airspace opacities at the lung bases, left worse than right. IMPRESSION: 1. Nasogastric tube tip in the stomach. 2. Dilated small bowel, likely adynamic ileus. 3. Airspace opacities at the lung bases, left worse than right, consistent with atelectasis versus pn eumonia. Reviewed, dictated and finalized at location A. O PRODUCER IMPRESSION: 1. Nasogastric tube tip in the stomach. 2. Dilated small bowel, likely adynamic ileus. 3. Airspace opacities at the lung bases, left worse than right, consistent with atelectasis versus pneumonia.
[2024-07-25] MEDS: LORazepam INJ (*CRX) 2 MG/ML VIAL 1 MG IV PUSH (01:54)
[2024-07-25] MEDS: ONDANSETRON INJ 4 MG/2 ML VIAL IV PUSH ×4 (01:54→19:39)
[2024-07-25] MEDS: IBUPROFEN IV 800 MG/200 ML 800 MG/200 ML BAG 400 MG IVPB ×4 (02:16→20:35)
[2024-07-25] MEDS: HYDROmorphone HCL INJ (*CRX) 1 MG/ML SYR 2 MG IV PUSH ×2 (02:18→06:10)
[2024-07-25] MEDS: LACTATED RINGERS 1,000 ML 100 ML IV CONT ×2 (06:55→16:31)
[2024-07-25 08:04] LABS: Hematocrit 46.2 % (42.0-52.0); Hemoglobin 15.3 g/dL (14.0-18.0); Mean Corpuscular HGB Conc 33.1 g/dl (32-36); Mean Corpuscular Volume 93.5 fl (80-100); Mean Platelet Volume 9.7 fl (7.4-10.4); Platelet Count Result 583 k/mm3 (150-375); Red Blood Count 4.94 M/mm3 (4.6-6.20); Red Cell Distribution Width 12.6 % (11.5-14.5); White Blood Count 12.8 K/mm3 (4.5-10.0)
[2024-07-25] MEDS: ALBUMIN HUMAN 5% 25 GM/500 ML BTL IV CONT (08:06)
[2024-07-25] MEDS: ENOXAPARIN 40 MG/0.4 ML SYRINGE SUB-Q (08:11)
[2024-07-25] MEDS: FAMOTIDINE 20 MG/2 ML VIAL IV PUSH ×2 (08:12→20:32)
[2024-07-25] MEDS: LORazepam INJ (*CRX) 2 MG/ML VIAL 0.5 MG IV PUSH ×2 (09:01→20:30)
[2024-07-25 09:59] LABS: Anion Gap 4 mmol/L (4-12); Aspartate Amino Transferase 27 U/L (17-59); Bilirubin,Total 0.5 mg/dL (0.2-1.3); Blood Urea Nitrogen 10 mg/dL (9-20); Calcium 8.4 mg/dL (8.4-10.2); Carbon Dioxide 30 mmol/L (22-30); Chloride 102 mmol/L (98-107); Estimated CRCL calculation 90 ml/min; Estimated Glomerular Filt Rate > 60; Glucose 122 mg/dL (65-110); Potassium 5.2 mmol/L (3.4-5.0); Sodium 136 mmol/L (137-145)
[2024-07-25 10:00] LABS: Alanine Aminotransferase 17 U/L (6-50); Albumin Level 2.9 g/dL (3.5-5.1); Alkaline Phosphatase 73 U/L (38-126); Total Protein 5.5 g/dL (6.3-8.2)
[2024-07-25 10:16] LABS: MRSA (PCR) NOT DETECTED (NOT DETECTE)
[2024-07-25] MEDS: LIDOCAINE HCL 1% PF INJ 5 ML VIAL INFILTRATE (10:30)
[2024-07-25] MEDS: HYDROmorphone HCL INJ (*CRX) 1 MG/ML SYR IV PUSH ×5 (11:49→21:40)
--- NOTE | 2024-07-25 13:14 | P.CONIN_ITS ---
Assessment and Plan Assessment and plan (1) Abdominal wound dehiscence: Qualifiers: Encounter type: initial encounter Qualified Code(s): T81.321A - Disruption or dehiscence of closure of internal operation (surgical) wound of abdominal wall muscle or fascia, initial encounter Code(s): T81.321A - Disruption or dehiscence of closure of internal operation (surgical) wound of abdominal wall muscle or fascia, initial encounter Status: Acute Assessment and Plan: 07/24/2024: post abdominal wound dehiscence with evisceration, small-bowel obstruction due to adhesions, status post repair of fascial dehiscence, extensive adhesional lysis for small-bowel obstruction, repair enterotomy x2 -surgery following -patient adequately fluid-resuscitated, given additional albumin this morning for tachycardia -pain control has been adequate -PICC line has been inserted for possible TPN (2) Obstruction of small intestine due to peritoneal adhesion: Code(s): K56.50 - Intestinal adhesions [bands], unspecified as to partial versus complete obstruction Status: Acute Assessment and Plan: As above (3) Alcohol withdrawal delirium: Code(s): F10.931 - Alcohol use, unspecified with withdrawal delirium Status: Acute Assessment and Plan: Likely alcohol withdrawal -CIWA protocol in place -given Ativan with improvement Plan DVT prophylaxis: Enoxaparin Stress ulcer prophylaxis: Not indicated Nutrition: Likely will be started on TPN per surgery Code Status: Full code Critical Care Time Spent: 47 minutes Due to a high probability of clinically significant, life threatening deterioration, the patient required my highest level of preparedness to intervene emergently and I personally spent this critical care time directly and personally managing the patient. This critical care time included obtaining a history; examining the patient; pulse oximetry; ordering and review of studies; arranging urgent treatment with development of a management plan; evaluation of patient's response to treatment; frequent reassessment; and discussions with other providers. It was exclusive of separately billable procedures and treating other patients and teaching time. Please see Assessment and Plan section and the rest of the note for further information on patient assessment and treatment This dictation may have been done utilizing a voice recognition system. Attempts have been made to correct errors. However, there may be uncorrected grammatical, spelling, and recognitions errors present. Service Center Supervisor Consult Note Consult date: 12/10/24 Reason for consult: Status post abdominal wound dehiscence with evisceration, small-bowel obstruction due to adhesions, status post repair of fascial dehiscence, extensive adhesional lysis for small-bowel obstruction, repair enterotomy x2 HPI: Vin Morris is a 39 year old male with past medical history anxiety, depression, small-bowel obstruction with history of lysis of adhesions, resection of small bowel with perforation on 07/06/2024. Patient presented on 07/24/2024 with abdominal wound dehiscence with evisceration. 07/24/2024:status post repair of fascial dehiscence, extensive adhesional lysis for small-bowel obstruction, repair enterotomy x2 Postop patient was transferred to the ICU for further management 07/25/2024: Patient seen and examined in the ICU. Patient is awake, alert, oriented, tachycardic, hemodynamically stable, denies any chest pain, shortness of breath, nausea, vomiting. States his abdominal pain is mild to moderate as expected. Urine output has been adequate, afebrile patient denies any tobacco, illicit drug use. Occasional alcohol use Review of Systems 2 Review of Systems: All systems reviewed & are unremarkable except as noted in HPI and below PMFSH Past Medical History Medical History Small bowel obstruction Surgical History Surgical History H/O lysis of adhesions H/O resection of small bowel Family History Family History Grandparent Acute myocardial infarction Cerebrovascular accident Congestive heart failure Hypertension Other Congestive heart failure Grandparent Acute myocardial infarction Congestive heart failure Diabetes mellitus Hypertension Breast cancer Grandparent Acute myocardial infarction Congestive heart failure Hypertension Father Congestive heart failure Hypertension Social History Social History Smoking status: Never smoker Alcohol intake: current Drinks per week: 8 Substance use: never Substance use type: does not use Do You Feel Safe in your Home?: Yes Lack of Transportation: No Lack of Food: Never True Current Housing: I Have Housing Concerned About Future Housing: No Difficulty Paying Gas/Electric Bills: No Difficulty Paying for Meds: No Currently Unemployed: No Education: Master's Degree or Higher Difficulty w/ Childcare or Family Care: No Spiritual care concerns: No Meds Home Medications and Allergies Home Medications ?Medication ?Instructions ?Recorded ?Confirmed ?Type acetaminophen 300 mg-codeine 30 mg 1 tablet PO Q6H PRN Incisional pain 07/02/24 07/24/24 History tablet alprazolam 0.5 mg tablet 0.5 mg PO BID PRN Anxiety 07/02/24 07/24/24 History amitriptyline 25 mg tablet 25 mg PO HS 07/02/24 07/24/24 History bupropion HCl 300 mg 24 hr tablet, 300 mg PO DAILY 07/02/24 07/24/24 History extended release buspirone 15 mg tablet 45 mg DAILY 07/02/24 07/24/24 History cetirizine 10 mg tablet 10 mg PO DAILY 07/02/24 07/24/24 History desvenlafaxine succinate 25 mg 25 mg PO DAILY 07/02/24 07/24/24 History tablet,extended release 24 hr docusate sodium 100 mg capsule 100 mg PO HS 07/02/24 07/24/24 History (Colace) fluticasone propionate 50 2 spray intranasal DAILY 07/02/24 07/24/24 History mcg/actuation nasal spray,suspension montelukast 10 mg tablet 10 mg PO DAILY 07/02/24 07/24/24 History omeprazole 40 mg capsule,delayed 40 mg PO DAILY 07/02/24 07/24/24 History release ondansetron HCl 8 mg tablet 8 mg PO Q8H PRN Nausea And Vomiting 07/02/24 07/24/24 History hydrocodone 5 mg-acetaminophen 325 1 tablet PO Q6H PRN Pain Rated 4-6 07/17/24 07/24/24 Rx mg tablet #20 tabs sulfamethoxazole 800 1 tab PO Q12HR 7 days #14 tabs 07/17/24 07/24/24 Rx mg-trimethoprim 160 mg tablet promethazine 12.5 mg tablet 12.5 mg PO Q6H PRN nausea and 07/18/24 07/24/24 Rx vomiting #10 tabs diphenhydramine HCl 50 mg capsule 50 mg PO HS 07/24/24 07/24/24 History doxylamine succinate 25 mg tablet 25 mg PO HS PRN Insomnia 07/24/24 07/24/24 History (Unisom (doxylamine)) multivitamin 1 tablet PO DAILY 07/24/24 07/24/24 History Allergies Allergy/AdvReac Type Severity Reaction Status Date / Time Penicillins Allergy Unknown Verified 07/24/24 21:32 Vital Signs Vital Signs - 24 hr 07/24/24 19:25 07/24/24 19:40 07/24/24 19:55 Temperature 97.5 F L Pulse Rate 124 H 121 H 123 H Respiratory Rate 10 L 18 17 Blood Pressure 108/68 131/88 126/87 Pulse Oximetry 100 100 100 Oxygen Delivery Simple Face Mask Simple Face Mask Oxygen Flow Rate 8 8 8 07/24/24 20:10 07/24/24 20:25 07/24/24 20:37 Temperature Pulse Rate 121 H 119 H 128 H Respiratory Rate 19 17 13 Blood Pressure 129/88 126/92 H 121/90 Pulse Oximetry 94 94 96 Oxygen Delivery Room Air Room Air Room Air Oxygen Flow Rate 07/24/24 22:00 07/24/24 22:00 07/25/24 00:00 Temperature 97.9 F Pulse Rate 117 H 121 H 128 H Respiratory Rate 16 13 Blood Pressure 132/95 H Pulse Oximetry 98 96 Oxygen Delivery Room Air Oxygen Flow Rate 07/25/24 00:00 07/25/24 00:00 07/25/24 02:00 Temperature 98.0 F Pulse Rate 114 H 115 H 128 H Respiratory Rate 18 20 Blood Pressure 134/89 124/80 Pulse Oximetry 98 98 Oxygen Delivery Oxygen Flow Rate 07/25/24 02:00 07/25/24 04:00 07/25/24 04:00 Temperature Pulse Rate 122 H 115 H 115 H Respiratory Rate 14 Blood Pressure Pulse Oximetry 96 Oxygen Delivery Room Air Oxygen Flow Rate 07/25/24 04:00 07/25/24 06:00 07/25/24 06:00 Temperature 97.6 F Pulse Rate 115 H 131 H 131 H Respiratory Rate 14 19 Blood Pressure 116/80 90/61 L Pulse Oximetry 97 97 Oxygen Delivery Oxygen Flow Rate Exam 2 Narrative: General: Anxious looking patient in no acute distress HEENT:? Pupils equal and reactive, sclera is clear Neck:? Supple Respiratory:? Clear to auscultation bilaterally, no wheezing Cardiac:? S1-S2 is normal, sinus tachycardia Abdomen:? Soft, nondistended, hypoactive bowel sounds, tender to palpation Extremities:? No edema, palpable pedal pulses Neuro: awake, alert, oriented x3, nonfocal Skin:? Abdominal incision under dressing, no other skin lesions or rashes Psych:? Anxious appearing Results Labs 07/25/24 05:00 07/25/24 04:25 Labs: Short CBC 07/24/24 07/25/24 Range/Units 16:50 05:00 WBC 12.9 H 12.8 H (4.5-10.0) K/mm3 Hgb 10.5 L 15.3 D (14.0-18.0) g/dL Hct 32.0 L 46.2 (42.0-52.0) % Plt Count 208 D 583 H D (150-375) k/mm3 BMP 07/25/24 04:25 Sodium 136 L Potassium 5.2 H Chloride 102 Carbon Dioxide 30 BUN 10 Creatinine 1.20 Glucose 122 H Calcium 8.4 Liver Function 07/25/24 Range/Units 04:25 Total Bilirubin 0.5 (0.2-1.3) mg/dL AST 27 (17-59) U/L ALT 17 (6-50) U/L Alkaline Phosphatase 73 (38-126) U/L Albumin 2.9 L (3.5-5.1) g/dL Hospitalist MIPS Advance Care Plan I have confirmed that the patient's Advanced Care Plan is present, code status is documented, or surrogate decision maker is listed in patient medical record.: Yes Medication Reconciliation I have utilized all available resources to obtain, update and review the patients current medications (includes all prescriptions, OTC, herbals, cannabis, and nutritional supplements).: Yes
--- NOTE | 2024-07-25 13:54 | WPDANESPN ---
Anes - Prog Note Post-Op Date/Time: 07/25/24 13:54 Cardiovascular status: normal Respiratory status: normal Airway patency: baseline Mental status: baseline Post-Op hydration status: normal Vital Signs: Last Vital Signs Temp 97.6 F 07/25/24 04:00 Pulse 131 H 07/25/24 06:00 Resp 19 07/25/24 06:00 BP 90/61 L 07/25/24 06:00 Pulse Ox 97 07/25/24 06:00 O2 Del Method Room Air 07/25/24 04:00 O2 Flow Rate 8 07/24/24 19:55 Pain Score (VAS): 10/23 I/O: Intake & Output 07/24/24 07/25/24 07/25/24 23:59 07:59 15:59 Intake Total 900 1175 200 Output Total 500 940 Balance 400 235 200 Laboratory Tests 07/25/24 05:00 07/25/24 04:25 07/24/24 07/25/24 07/25/24 16:50 04:25 05:00 WBC 12.9 H 12.8 H RBC 3.41 L 4.94 Hgb 10.5 L 15.3 D Hct 32.0 L 46.2 MCV 93.8 93.5 MCH 30.8 31.0 MCHC 32.8 33.1 RDW 12.6 12.6 Plt Count 208 D 583 H D MPV 11.0 H 9.7 Immature Gran % (Auto) 1.0 H Neut % (Auto) 85.0 H Lymph % (Auto) 8.4 L [place] % (Auto) 3.6 Eos % (Auto) 1.6 Baso % (Auto) 0.4 Lymph # (Auto) 1.08 [place] # (Auto) 0.5 Eos # (Auto) 0.2 Baso # (Auto) 0.1 Abs Immat Gran (auto) 0.13 H Absolute Neuts (auto) 11.0 H Absolute Nucleated RBC 0.000 Nucleated RBC % 0.0 Sodium 136 L Potassium 5.2 H Chloride 102 Carbon Dioxide 30 Anion Gap 4 BUN 10 Creatinine 1.20 Estim Creat Clear Calc 90 Estimated GFR > 60 Glucose 122 H Calcium 8.4 Total Bilirubin 0.5 AST 27 ALT 17 Alkaline Phosphatase 73 Total Protein 5.5 L Albumin 2.9 L Nasal MRSA (PCR) 07/25/24 08:39 WBC RBC Hgb Hct MCV MCH MCHC RDW Plt Count MPV Immature Gran % (Auto) Neut % (Auto) Lymph % (Auto) [place] % (Auto) Eos % (Auto) Baso % (Auto) Lymph # (Auto) [place] # (Auto) Eos # (Auto) Baso # (Auto) Abs Immat Gran (auto) Absolute Neuts (auto) Absolute Nucleated RBC Nucleated RBC % Sodium Potassium Chloride Carbon Dioxide Anion Gap BUN Creatinine Estim Creat Clear Calc Estimated GFR Glucose Calcium Total Bilirubin AST ALT Alkaline Phosphatase Total Protein Albumin Nasal MRSA (PCR) Not detected Post-procedural complaints: none Patient Feedback: Patient satisfied with anesthetic care.
--- NOTE | 2024-07-25 14:25 | PM.PNGS ---
Progress Note: A&P Assessment and Plan (1) H/O lysis of adhesions: Code(s): Z98.890 - Other specified postprocedural states Status: Acute Assessment and Plan: Doing well status post extensive adhesiolysis with enterotomy repair x2 yesterday, 07/24/2024. Pain controlled with p.r.n. Dilaudid. Urine output increasing. Await return of bowel function which could be several days. Transfer from ICU to [facility] floor and up in the chair today. (2) Perioperative dehiscence of abdominal wound with evisceration: Qualifiers: Encounter type: subsequent encounter Qualified Code(s): T81.321D - Disruption or dehiscence of closure of internal operation (surgical) wound of abdominal wall muscle or fascia, subsequent encounter Code(s): T81.321A - Disruption or dehiscence of closure of internal operation (surgical) wound of abdominal wall muscle or fascia, initial encounter Status: Acute Assessment and Plan: Index laparotomy performed 07/06/2024. Patient experienced nausea and vomiting at home after discharge. Extensive vomiting from recurrent SBO likely the cause of the dehiscence and evisceration 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: Code(s): K56.50 - Intestinal adhesions [bands], unspecified as to partial versus complete obstruction Status: Acute Assessment and Plan: Recurrent SBO, relieved with extensive adhesiolysis yesterday (4) Protein-calorie malnutrition, moderate: Code(s): E44.0 - Moderate protein-calorie malnutrition Status: Acute Assessment and Plan: PICC line has been placed. Will restart TPN today. Subjective Subjective Date/Time Seen: 07/25/24 14:25 Post Op day: 1 Patient reports: still having pain (Controlled with Dilaudid, slept well last night), no flatus, no bowel movement and afebrile Exam Const: General: comfortable, no acute distress, alert and awake Nutritional Appearance: thin Orientation/consciousness: patient oriented x3 and No confusion Resp: Effort & Inspection: normal respiratory effort Auscultation: clear to auscultation bilaterally Cardio: Rate: regular rate Rhythm: regular rhythm GI: Inspection: non-distended, incision (Dressing dry and intact) and scaphoid GI Palp: Yes Soft to palpation, Yes Tenderness to palpation present (GI) (Diffusely tender) and Yes Guarding due to palpation present (GI) Auscultation: absent bowel sounds Urinary Catheter: Urinary Catheter: patent and draining Skin: General skin exam: pallor Rashes: no rashes Neuro: General: patient oriented x3 and no focal motor deficits Extrem: General: no calf tenderness and no edema Psych: Affect: normal affect Attitude: cooperative Thought process: Normal thought process present Insight: Good insight present (Psych) Judgement: Good judgement present (Psych) Objective Data Vital Signs Vital Signs: Vital Signs - 24 hr 07/24/24 19:25 07/24/24 19:40 07/24/24 19:55 Temperature 36.4 C L Pulse Rate 124 H 121 H 123 H Respiratory Rate 10 L 18 17 Blood Pressure 108/68 131/88 126/87 Pulse Oximetry 100 100 100 Oxygen Delivery Simple Face Mask Simple Face Mask Oxygen Flow Rate 8 8 8 07/24/24 20:10 07/24/24 20:25 07/24/24 20:37 Temperature Pulse Rate 121 H 119 H 128 H Respiratory Rate 19 17 13 Blood Pressure 129/88 126/92 H 121/90 Pulse Oximetry 94 94 96 Oxygen Delivery Room Air Room Air Room Air Oxygen Flow Rate 07/24/24 22:00 07/24/24 22:00 07/25/24 00:00 Temperature 36.6 C Pulse Rate 117 H 121 H 128 H Respiratory Rate 16 13 Blood Pressure 132/95 H Pulse Oximetry 98 96 Oxygen Delivery Room Air Oxygen Flow Rate 07/25/24 00:00 07/25/24 00:00 07/25/24 02:00 Temperature 36.7 C Pulse Rate 114 H 115 H 128 H Respiratory Rate 18 20 Blood Pressure 134/89 124/80 Pulse Oximetry 98 98 Oxygen Delivery Oxygen Flow Rate 07/25/24 02:00 07/25/24 04:00 07/25/24 04:00 Temperature Pulse Rate 122 H 115 H 115 H Respiratory Rate 14 Blood Pressure Pulse Oximetry 96 Oxygen Delivery Room Air Oxygen Flow Rate 07/25/24 04:00 07/25/24 06:00 07/25/24 06:00 Temperature 36.4 C Pulse Rate 115 H 131 H 131 H Respiratory Rate 14 19 Blood Pressure 116/80 90/61 L Pulse Oximetry 97 97 Oxygen Delivery Oxygen Flow Rate Intake/Output Intake/Output: Intake & Output 07/22/24 07/23/24 07/24/2410/24 23:59 23:59 23:59 23:59 Intake Total 950 1375 Output Total 500 940 Balance 450 435 Meds/Results Medications: Active Medications Generic Name Dose Route Start Last Admin Trade Name Freq PRN Reason Stop Dose Admin Amitriptyline HCl 25 mg 07/25/24 21:00 Amitriptyline Hcl 25 Mg Tablet PO HS EMILE Bupropion HCl 300 mg 07/26/24 09:00 Bupropion Hcl Xl (24 Hr) 150 Mg Tabcr PO DAILY EMILE Buspirone HCl 45 mg 07/26/24 09:00 Buspirone Hcl 5 Mg Tablet BY MOUTH DAILY EMILE Enoxaparin Sodium 40 mg 07/25/24 09:00 07/25/24 08:11 Enoxaparin 40 Mg/0.4 Ml Syringe SUB-Q 40 mg DAILY EMILE Administration Famotidine 20 mg 07/24/24 21:00 07/25/24 08:12 Famotidine 20 Mg/2 Ml Vial IV PUSH 20 mg Q12HR EMILE Administration Hydromorphone HCl 2 mg 07/24/24 20:38 07/25/24 06:10 Hydromorphone Hcl Inj (*Crx) 1 Mg/Ml Syr IV PUSH 2 mg Q2H PRN Administration Breakthrough Pain Rated 7-10 or NPO Hydromorphone HCl 1 mg 07/24/24 20:38 07/25/24 14:03 Hydromorphone Hcl Inj (*Crx) 1 Mg/Ml Syr IV PUSH 1 mg Q2H PRN Administration Breakthrough Pain Rated 4-6 or NPO Lactated Ringer's 1,000 mls @ 100 mls/hr 07/24/24 20:38 07/25/24 06:55 Lr - Lactated Ringers Iv IV CONT 100 mls/hr .Q10H EMILE Administration Ibuprofen 800 mg in 200 mls @ 400 mls/hr 07/24/24 21:00 07/25/24 14:02 Caldolor 800 Mg/200 Ml IVPB 400 mls/hr Q6H EMILE Administration Lorazepam 2 mg 07/25/24 10:25 Lorazepam Inj (*Crx) 2 Mg/Ml Vial IV PUSH Q2H PRN CIWA > 15 Miscellaneous Information 1 each 07/25/24 00:01 Nonformulary Drug (Desvenlafaxine Succinate 25 Mg Tablet Extended Release 24 Hr)Can Patien XX 08/24/24 00:00 [facility] Miscellaneous Information 1 each 07/25/24 00:01 Nonformulary Drug (Doxylamine Succinate [Unisom (Doxylamine)] 25 Mg Tablet)Can Patient Use XX 08/24/24 00:00 [facility] Naloxone HCl 0.1 mg 07/24/24 20:38 Naloxone Hcl 0.4 Mg/Ml Vial IV PUSH Q2M PRN Opiate Reversal Non-Formulary Medication 25 mg 07/26/24 09:00 Desvenlafaxine Succinate PO 08/25/24 08:59 DAILY [facility] Non-Formulary Medication 25 mg 07/25/24 14:04 Doxylamine Succinate [Unisom (Doxylamine)] PO HS PRN Insomnia Ondansetron HCl 4 mg 07/24/24 20:38 07/25/24 06:00 Ondansetron Inj 4 Mg/2 Ml Vial IV PUSH 4 mg Q4H PRN Administration Nausea And Vomiting Sodium Chloride 10 ml 07/25/24 14:00 Central Line Flush IV PUSH Q8HR [facility] Sodium Chloride 10 ml 07/25/24 11:31 Central Line Flush IV PUSH PRN PRN with TPN bag changes Sodium Chloride 20 ml 07/25/24 11:31 Central Line Flush IV PUSH PRN PRN after blood draws Thiamine HCl 100 mg 07/26/24 09:00 Thiamine Hcl 200 Mg/2 Ml Vial IV PUSH DAILY [facility] Labs Labs: Laboratory Results - last 24 hr 07/24/24 07/25/24 07/25/24 16:50 04:25 05:00 WBC 12.9 H 12.8 H RBC 3.41 L 4.94 Hgb 10.5 L 15.3 D Hct 32.0 L 46.2 MCV 93.8 93.5 MCH 30.8 31.0 MCHC 32.8 33.1 RDW 12.6 12.6 Plt Count 208 D 583 H D MPV 11.0 H 9.7 Immature Gran % (Auto) 1.0 H Neut % (Auto) 85.0 H Lymph % (Auto) 8.4 L [place] % (Auto) 3.6 Eos % (Auto) 1.6 Baso % (Auto) 0.4 Lymph # (Auto) 1.08 [place] # (Auto) 0.5 Eos # (Auto) 0.2 Baso # (Auto) 0.1 Abs Immat Gran (auto) 0.13 H Absolute Neuts (auto) 11.0 H Absolute Nucleated RBC 0.000 Nucleated RBC % 0.0 Sodium 136 L Potassium 5.2 H Chloride 102 Carbon Dioxide 30 Anion Gap 4 BUN 10 Creatinine 1.20 Estim Creat Clear Calc 90 Estimated GFR > 60 Glucose 122 H Calcium 8.4 Total Bilirubin 0.5 AST 27 ALT 17 Alkaline Phosphatase 73 Total Protein 5.5 L Albumin 2.9 L Nasal MRSA (PCR) 07/25/24 08:39 WBC RBC Hgb Hct MCV MCH MCHC RDW Plt Count MPV Immature Gran % (Auto) Neut % (Auto) Lymph % (Auto) [place] % (Auto) Eos % (Auto) Baso % (Auto) Lymph # (Auto) [place] # (Auto) Eos # (Auto) Baso # (Auto) Abs Immat Gran (auto) Absolute Neuts (auto) Absolute Nucleated RBC Nucleated RBC % Sodium Potassium Chloride Carbon Dioxide Anion Gap BUN Creatinine Estim Creat Clear Calc Estimated GFR Glucose Calcium Total Bilirubin AST ALT Alkaline Phosphatase Total Protein Albumin Nasal MRSA (PCR) Not detected
[2024-07-25] MEDS: AMINO ACIDS 5%/D15W/E-LYTES/CA 1,000 ML with MULTIVITAMINS-12 INJ VIAL 1 1.25 ML, MULTI... 40 ML IV CONT (15:24)
[2024-07-25] MEDS: FAT EMULSIONS IV 20% 250 ML 20.83 ML IVPB (15:24)
[2024-07-25 15:39] LABS: Glucose Point of Care 106 mg/dl (65-105)
[2024-07-25 15:41] LABS: Basophils Absolute Auto 0.1 K/mm3 (0.0-0.1); Basophils Percent Auto 0.5 % (0.2-1.2); Eosinophils Absolute Auto 0.1 K/mm3 (0-0.3); Eosinophils Percent Auto 0.9 % (0-4.4); Hematocrit 39.2 % (42.0-52.0); Hemoglobin 12.8 g/dL (14.0-18.0); Immature Granulocyte Absolute 0.07 K/mm3 (0.00-0.031); Immature Granulocyte Percent A 0.6 % (0-0.5); Lymphocytes Absolute Auto 0.88 K/mm3 (0.9-3.2); Lymphocytes Percent Auto 7.4 % (18.3-44.2); Mean Corpuscular HGB Conc 32.7 g/dl (32-36); Mean Corpuscular Hemoglobin 30.5 pg (26-34); Mean Corpuscular Volume 93.3 fl (80-100); Mean Platelet Volume 9.6 fl (7.4-10.4); Monocytes Absolute Auto 0.9 K/mm3 (0.1-0.6); Monocytes Percent Auto 7.8 % (2.6-8.5); Neutrophils Absolute Auto 9.8 K/mm3 (1.3-6.7); Neutrophils Percent Auto 82.8 % (45.5-73.1); Platelet Count Result 471 k/mm3 (150-375); Red Cell Distribution Width 12.5 % (11.5-14.5); White Blood Count 11.9 K/mm3 (4.5-10.0)
[2024-07-25 15:51] LABS: Partial Thromboplastin Time 35.8 Seconds (22.3-36.8)
[2024-07-25 15:52] LABS: Magnesium 1.3 mg/dL (1.6-2.3)
[2024-07-25 15:53] LABS: Alanine Aminotransferase 13 U/L (6-50); Albumin Level 2.8 g/dL (3.5-5.1); Alkaline Phosphatase 64 U/L (38-126); Anion Gap 6 mmol/L (4-12); Aspartate Amino Transferase 23 U/L (17-59); Bilirubin,Total 0.6 mg/dL (0.2-1.3); Blood Urea Nitrogen 14 mg/dL (9-20); Calcium 7.9 mg/dL (8.4-10.2); Carbon Dioxide 27 mmol/L (22-30); Chloride 103 mmol/L (98-107); Estimated CRCL calculation 98 ml/min; Estimated Glomerular Filt Rate > 60; Glucose 106 mg/dL (65-110); Potassium 4.2 mmol/L (3.4-5.0); Sodium 136 mmol/L (137-145)
[2024-07-25 15:59] LABS: Transferrin 97 mg/dL (206-381)
--- NOTE | 2024-07-25 16:20 | P.CONIM_ITS ---
Assessment and Plan Assessment and plan (1) Perioperative dehiscence of abdominal wound with evisceration: Qualifiers: Encounter type: subsequent encounter Qualified Code(s): T81.321D - Disruption or dehiscence of closure of internal operation (surgical) wound of abdominal wall muscle or fascia, subsequent encounter Code(s): T81.321A - Disruption or dehiscence of closure of internal operation (surgical) wound of abdominal wall muscle or fascia, initial encounter Status: Acute Assessment and Plan: Postoperative day 1 status post repair of fascial dehiscence with extensive adhesiolysis for small-bowel obstruction and repair enterotomy x2. Wound care, pain control, and DVT prophylaxis deferred to primary service. (2) Abdominal adhesions: Code(s): K66.0 - Peritoneal adhesions (postprocedural) (postinfection) Status: Acute Assessment and Plan: Plan is as detailed above. 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: Code(s): K56.50 - Intestinal adhesions [bands], unspecified as to partial versus complete obstruction Status: Acute Assessment and Plan: As above. (4) Gastroesophageal reflux disease: Code(s): K21.9 - Gastro-esophageal reflux disease without esophagitis Status: Acute Assessment and Plan: Currently on famotidine 20 mg IV b.i.d. (5) Depression with anxiety: Code(s): F41.8 - Other specified anxiety disorders Status: Acute Assessment and Plan: Resume medications following return of bowel function. P.r.n. lorazepam available as needed. (6) History of alcohol withdrawal delirium: Code(s): Z86.59 - Personal history of other mental and behavioral disorders Status: Acute Assessment and Plan: He had alcohol withdrawal symptoms with his most recent hospitalization and states he has not had any significant alcohol since his discharge a little over week ago. Will initiate CIWA protocol however and continue to monitor closely. Plan Thank you for allowing us to participate in this patient's care. Please do not hesitate to contact us with any questions. HPI Date of Consult Consult date: 07/25/24 Requesting Physician: Armand Mccann MD Primary Care Provider: Antonio Golden, Consult Narrative Reason for consult: medical management Narrative: This is a pleasant 39-year-old male with history of multiple abdominal surgeries including exploratory laparotomy for ruptured Meckel's diverticulum in his early 20s, small-bowel resections related to recurrent small-bowel obstruction, gastroesophageal reflux disease, George esophagus, depression, and anxiety whom the hospitalist service has been consulted for help managing the patient's medical condition postoperatively. He is known to the hospitalist service from an admission last month at which time he was found to have a high-grade small- bowel obstruction with evidence of bowel perforation at the time of surgery. He returned to the OR yesterday due to wound dehiscence and is now postoperative day 1 status post repair of fascial dehiscence, extensive adhesiolysis for small-bowel obstruction, and repair enterotomy x2. He was monitored in ICU overnight and is being downgraded to the medical floor today. At the time of my evaluation his pain is manageable. He complains of anxiety and is feeling better after receiving IV lorazepam 0.5 mg. With his last day he had pretty significant alcohol withdrawal. He has had minimal if any alcohol intake since discharge on 07/17/2024 and he does not think his anxieties related to that. He denies hallucinations, tremors, and sweats. He also denies fever, chest pain, shortness of breath, tremors, and sweats. Review of Systems 2 Review of Systems: 12 systems were reviewed and are negativ e except for as per HPI. [facility] Past Medical History Medical History Depression with anxiety Gastroesophageal reflux disease George esophagus Small bowel obstruction Surgical History Surgical History History of laser assisted in situ keratomileusis History of left inguinal hernia repair History of appendectomy History of hernia repair History of resection of small bowel History of lysis of adhesions (07/24/24) for small-bowel obstruction, two small enterotomies repaired, no resection History of exploratory laparotomy For what sounds like ruptured Meckel's diverticulum in his early 20s Family History Family History Grandparent Acute myocardial infarction Cerebrovascular accident Congestive heart failure Hypertension Other Congestive heart failure Grandparent Acute myocardial infarction Congestive heart failure Diabetes mellitus Hypertension Breast cancer Grandparent Acute myocardial infarction Congestive heart failure Hypertension Father Congestive heart failure Hypertension Social History Social History (Updated 07/25/24 @ 22:35 by Mraley Nichols PA-C) Social History: Surrogate medical decision maker: Chyna Rosales, sibling. Code status: Full code. Smoking status: Never smoker Alcohol intake: current Drinks per week: 8 Substance use: never Substance use type: does not use Do You Feel Safe in your Home?: Yes Lack of Transportation: No Lack of Food: Never True Current Housing: I Have Housing Concerned About Future Housing: No Difficulty Paying Gas/Electric Bills: No Difficulty Paying for Meds: No Currently Unemployed: No Education: Master's Degree or Higher Difficulty w/ Childcare or Family Care: No Additional living arrangements comments: Lives in [place]. 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 Spiritual care concerns: No Meds Home Medications and Allergies Home Medications ?Medication ?Instructions ?Recorded ?Confirmed ?Type acetaminophen 300 mg-codeine 30 mg 1 tablet PO Q6H PRN Incisional pain 07/02/24 07/24/24 History tablet alprazolam 0.5 mg tablet 0.5 mg PO BID PRN Anxiety 07/02/24 07/24/24 History amitriptyline 25 mg tablet 25 mg PO HS 07/02/24 07/24/24 History bupropion HCl 300 mg 24 hr tablet, 300 mg PO DAILY 07/02/24 07/24/24 History extended release buspirone 15 mg tablet 45 mg DAILY 07/02/24 07/24/24 History cetirizine 10 mg tablet 10 mg PO DAILY 07/02/24 07/24/24 History desvenlafaxine succinate 25 mg 25 mg PO DAILY 07/02/24 07/24/24 History tablet,extended release 24 hr docusate sodium 100 mg capsule 100 mg PO HS 07/02/24 07/24/24 History (Colace) fluticasone propionate 50 2 spray intranasal DAILY 07/02/24 07/24/24 History mcg/actuation nasal spray,suspension montelukast 10 mg tablet 10 mg PO DAILY 07/02/24 07/24/24 History omeprazole 40 mg capsule,delayed 40 mg PO DAILY 07/02/24 07/24/24 History release ondansetron HCl 8 mg tablet 8 mg PO Q8H PRN Nausea And Vomiting 07/02/24 07/24/24 History hydrocodone 5 mg-acetaminophen 325 1 tablet PO Q6H PRN Pain Rated 4-6 07/17/24 07/24/24 Rx mg tablet #20 tabs sulfamethoxazole 800 1 tab PO Q12HR 7 days #14 tabs 07/17/24 07/24/24 Rx mg-trimethoprim 160 mg tablet promethazine 12.5 mg tablet 12.5 mg PO Q6H PRN nausea and 07/18/24 07/24/24 Rx vomiting #10 tabs diphenhydramine HCl 50 mg capsule 50 mg PO HS 07/24/24 07/24/24 History doxylamine succinate 25 mg tablet 25 mg PO HS PRN Insomnia 07/24/24 07/24/24 History (Unisom (doxylamine)) multivitamin 1 tablet PO DAILY 07/24/24 07/24/24 History Allergies Allergy/AdvReac Type Severity Reaction Status Date / Time Penicillins Allergy Unknown Verified 07/24/24 21:32 Vital Signs Vital Signs - 24 hr 07/24/24 19:25 07/24/24 19:40 07/24/24 19:55 Temperature 97.5 F L Pulse Rate 124 H 121 H 123 H Respiratory Rate 10 L 18 17 Blood Pressure 108/68 131/88 126/87 Pulse Oximetry 100 100 100 Oxygen Delivery Simple Face Mask Simple Face Mask Oxygen Flow Rate 8 8 8 07/24/24 20:10 07/24/24 20:25 07/24/24 20:37 Temperature Pulse Rate 121 H 119 H 128 H Respiratory Rate 19 17 13 Blood Pressure 129/88 126/92 H 121/90 Pulse Oximetry 94 94 96 Oxygen Delivery Room Air Room Air Room Air Oxygen Flow Rate 07/24/24 22:00 07/24/24 22:00 07/25/24 00:00 Temperature 97.9 F Pulse Rate 117 H 121 H 128 H Respiratory Rate 16 13 Blood Pressure 132/95 H Pulse Oximetry 98 96 Oxygen Delivery Room Air Oxygen Flow Rate 07/25/24 00:00 07/25/24 00:00 07/25/24 02:00 Temperature 98.0 F Pulse Rate 114 H 115 H 128 H Respiratory Rate 18 20 Blood Pressure 134/89 124/80 Pulse Oximetry 98 98 Oxygen Delivery Oxygen Flow Rate 07/25/24 02:00 07/25/24 04:00 07/25/24 04:00 Temperature Pulse Rate 122 H 115 H 115 H Respiratory Rate 14 Blood Pressure Pulse Oximetry 96 Oxygen Delivery Room Air Oxygen Flow Rate 07/25/24 04:00 07/25/24 06:00 07/25/24 06:00 Temperature 97.6 F Pulse Rate 115 H 131 H 131 H Respiratory Rate 14 19 Blood Pressure 116/80 90/61 L Pulse Oximetry 97 97 Oxygen Delivery Oxygen Flow Rate Exam 2 Narrative: General: Well-developed male in the semi-Elal position in bed. Appears to be in mild pain. Weight: 86.3 kg. BMI: 23.8. HEENT: PERRL, EOMI. Sclera anicteric. NG tube in place. Tacky mucous membranes. Neck: Supple. Respiratory: Lungs are clear to auscultation bilaterally. Cardiovascular: Tachycardic with normal S1-S2. Gastrointestinal: Abdomen is slightly firm and distended with quiet bowel sounds. Skin: Warm and dry. Extremities: No cyanosis, clubbing, or edema. Radial and pedal pulses intact. Neurological: Alert and oriented. Cranial nerves 2-12 are grossly intact. No tremors. No gross focal deficits to casual conversation. Psychiatric: Pleasant and cooperative with appropriate mood and affect. Results Labs 07/25/24 15:28 07/25/24 15:28 Labs: Short CBC 07/24/24 07/25/24 07/25/24 Range/Units 16:50 05:00 15:28 WBC 12.9 H 12.8 H 11.9 H (4.5-10.0) K/mm3 Hgb 10.5 L 15.3 D 12.8 L (14.0-18.0) g/dL Hct 32.0 L 46.2 39.2 L (42.0-52.0) % Plt Count 208 D 583 H D 471 H (150-375) k/mm3 BMP 07/25/24 07/25/24 04:25 15:28 Sodium 136 L 136 L Potassium 5.2 H 4.2 Chloride 102 103 Carbon Dioxide 30 27 BUN 10 14 Creatinine 1.20 1.10 Glucose 122 H 106 Calcium 8.4 7.9 L Liver Function 07/25/24 07/25/24 Range/Units 04:25 15:28 Total Bilirubin 0.5 0.6 (0.2-1.3) mg/dL AST 27 23 (17-59) U/L ALT 17 13 (6-50) U/L Alkaline Phosphatase 73 64 (38-126) U/L Albumin 2.9 L 2.8 L (3.5-5.1) g/dL Hospitalist MIPS Advance Care Plan I have confirmed that the patient's Advanced Care Plan is present, code status is documented, or surrogate decision maker is listed in patient medical record.: Yes Medication Reconciliation I have utilized all available resources to obtain, update and review the patients current medications (includes all prescriptions, OTC, herbals, cannabis, and nutritional supplements).: Yes
--- NOTE | 2024-07-25 17:35 | PC.NURSE ---
Report given to Codie PARKER on 2nd MED/Surg. Pt moved via wheelchair to room 253. All belongings transported with patient.
[2024-07-25 17:57] LABS: Glucose Point of Care 118 mg/dl (65-105)
--- NOTE | 2024-07-25 18:10 | PC.NURSE ---
Received from ICU/4 via stretcher.
[2024-07-25] MEDS: CENTRAL LINE FLUSH 10 ML IV PUSH (20:38)
[2024-07-26] VITALS: BP 127/72; PULSE 120; RESP 18; TEMP 36.5; O2SAT 98
[2024-07-26 00:21] LABS: Glucose Point of Care 112 mg/dl (65-105)
[2024-07-26] MEDS: HYDROmorphone HCL INJ (*CRX) 1 MG/ML SYR IV PUSH ×9 (01:19→22:01)
[2024-07-26] MEDS: LORazepam INJ (*CRX) 2 MG/ML VIAL 0.5 MG IV PUSH ×4 (02:29→22:02)
[2024-07-26] MEDS: LACTATED RINGERS 1,000 ML 100 ML IV CONT (02:29)
[2024-07-26] MEDS: IBUPROFEN IV 800 MG/200 ML 800 MG/200 ML BAG 400 MG IVPB ×4 (02:29→20:45)
[2024-07-26 04:00] VITALS: BP 106/58; BP 127/72; PULSE 75; RESP 18; TEMP 36.6; O2SAT 96
[2024-07-26 05:47] LABS: Glucose Point of Care 131 mg/dl (65-105)
[2024-07-26] MEDS: CENTRAL LINE FLUSH 10 ML IV PUSH ×3 (05:48→20:46)
[2024-07-26 06:02] LABS: Hematocrit 34.8 % (42.0-52.0); Hemoglobin 11.2 g/dL (14.0-18.0); Mean Corpuscular HGB Conc 32.2 g/dl (32-36); Mean Corpuscular Hemoglobin 30.3 pg (26-34); Mean Corpuscular Volume 94.1 fl (80-100); Platelet Count Result 412 k/mm3 (150-375); Red Cell Distribution Width 12.5 % (11.5-14.5); White Blood Count 10.5 K/mm3 (4.5-10.0)
[2024-07-26 06:11] LABS: Anion Gap 2 mmol/L (4-12); Blood Urea Nitrogen 15 mg/dL (9-20); Calcium 8.2 mg/dL (8.4-10.2); Carbon Dioxide 30 mmol/L (22-30); Chloride 102 mmol/L (98-107); Estimated CRCL calculation 118 ml/min; Estimated Glomerular Filt Rate > 60; Glucose 115 mg/dL (65-110); Phosphorus 2.6 mg/dL (2.5-4.5); Potassium 3.9 mmol/L (3.4-5.0); Sodium 134 mmol/L (137-145)
--- NOTE | 2024-07-26 07:22 | PM.PNGS ---
Progress Note: A&P Assessment and Plan (1) H/O lysis of adhesions: Code(s): Z98.890 - Other specified postprocedural states Status: Acute Assessment and Plan: Doing well. Patient to get up in the chair more today. Leave Sin catheter 1 more day. Start dressing changes today. Still requiring IV narcotics for pain control and is NPO except meds with sips. (2) Perioperative dehiscence of abdominal wound with evisceration: Qualifiers: Encounter type: subsequent encounter Qualified Code(s): T81.321D - Disruption or dehiscence of closure of internal operation (surgical) wound of abdominal wall muscle or fascia, subsequent encounter Code(s): T81.321A - Disruption or dehiscence of closure of internal operation (surgical) wound of abdominal wall muscle or fascia, initial encounter Status: Acute Assessment and Plan: Index laparotomy performed 07/06/2024. Patient experienced nausea and vomiting at home after discharge. Extensive vomiting from recurrent SBO likely the cause of the dehiscence and evisceration 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: Code(s): K56.50 - Intestinal adhesions [bands], unspecified as to partial versus complete obstruction Status: Acute Assessment and Plan: Recurrent SBO, relieved with extensive adhesiolysis yesterday (4) Protein-calorie malnutrition, moderate: Code(s): E44.0 - Moderate protein-calorie malnutrition Status: Acute Assessment and Plan: Continue TPN but increase rate. Subjective Subjective Date/Time Seen: 07/26/24 07:22 Post Op day: 2 Patient reports: no new complaints, still having pain, flatus, no bowel movement and afebrile Exam Const: General: comfortable and no acute distress Orientation/consciousness: patient oriented x3 Resp: Effort & Inspection: normal respiratory effort Auscultation: clear to auscultation bilaterally GI: Inspection: no abdominal wall ecchymosis, Abdominal wall edema, incision (Serosanguineous drainage, fascia intact, retention sutures intact) and scaphoid GI Palp: Yes Soft to palpation, Yes Tenderness to palpation present (GI) (Diffuse incisional tenderness), No Guarding due to palpation present (GI) and No Rebound tenderness present Auscultation: absent bowel sounds Neuro: General: patient oriented x3 and no focal motor deficits Extrem: General: no calf tenderness and no edema Psych: Affect: normal affect Insight: Good insight present (Psych) Judgement: Good judgement present (Psych) Objective Data Vital Signs Vital Signs: Vital Signs - 24 hr 07/25/24 08:00 07/25/24 08:00 07/25/24 10:00 Temperature 36.4 C Pulse Rate 144 H 144 H 128 H Respiratory Rate 23 H Blood Pressure 81/67 L Pulse Oximetry 94 Oxygen Delivery 07/25/24 10:00 07/25/24 12:00 07/25/24 12:00 Temperature 37.4 C Pulse Rate 128 H 130 H 133 H Respiratory Rate 18 22 H Blood Pressure 105/72 108/76 Pulse Oximetry 97 95 Oxygen Delivery 07/25/24 14:00 07/25/24 14:00 07/25/24 16:00 Temperature 36.4 C L Pulse Rate 134 H 134 H 118 H Respiratory Rate 26 H 15 Blood Pressure 121/79 116/75 Pulse Oximetry 97 97 Oxygen Delivery 07/25/24 19:34 07/25/24 20:00 07/25/24 20:00 Temperature 36.5 C Pulse Rate 122 H Respiratory Rate 18 Blood Pressure 116/75 111/65 116/75 Pulse Oximetry 94 Oxygen Delivery 07/25/24 21:27 07/26/24 00:00 07/26/24 00:00 Temperature 36.5 C Pulse Rate 120 H Respiratory Rate 18 Blood Pressure 127/72 127/72 Pulse Oximetry 98 Oxygen Delivery Room Air 07/26/24 04:00 07/26/24 04:00 Temperature 36.6 C Pulse Rate 75 Respiratory Rate 18 Blood Pressure 127/72 106/58 L Pulse Oximetry 96 Oxygen Delivery Intake/Output Intake/Output: Intake & Output 07/23/24 07/24/24 07/25/24 07/26/24 23:59 23:59 23:59 23:59 Intake Total 950 2735 1446.7 Output Total 500 1540 Balance 450 1195 1446.7 Meds/Results Medications: Active Medications Generic Name Dose Route Start Last Admin Trade Name Freq PRN Reason Stop Dose Admin Amitriptyline HCl 25 mg 07/25/24 21:00 07/25/24 20:37 Amitriptyline Hcl 25 Mg Tablet PO Not Given HS EMILE Bupropion HCl 300 mg 07/26/24 09:00 Bupropion Hcl Xl (24 Hr) 150 Mg Tabcr PO DAILY EMILE Buspirone HCl 45 mg 07/26/24 09:00 Buspirone Hcl 5 Mg Tablet BY MOUTH DAILY EMILE Dextrose 12.5 gm 07/25/24 14:35 Dextrose 50% 25 Gm/50 Ml Syringe IV PUSH PRN PRN Hypoglycemia Protocol Enoxaparin Sodium 40 mg 07/25/24 09:00 07/25/24 08:11 Enoxaparin 40 Mg/0.4 Ml Syringe SUB-Q 40 mg DAILY EMILE Administration Famotidine 20 mg 07/24/24 21:00 07/25/24 20:32 Famotidine 20 Mg/2 Ml Vial IV PUSH 20 mg Q12HR EMILE Administration Glucagon 1 mg 07/25/24 14:35 Glucagon For Inj 1 Mg Vial IM PRN PRN Hypoglycemia Protocol Glucose 15 gm 07/25/24 14:35 Glucose Oral Gel 15 Gm Of Glucse In 37.5 Gm Tube PO PRN PRN Hypoglycemia Protocol Hydromorphone HCl 2 mg 07/24/24 20:38 07/25/24 06:10 Hydromorphone Hcl Inj (*Crx) 1 Mg/Ml Syr IV PUSH 2 mg Q2H PRN Administration Breakthrough Pain Rated 7-10 or NPO Hydromorphone HCl 1 mg 07/24/24 20:38 07/26/24 06:16 Hydromorphone Hcl Inj (*Crx) 1 Mg/Ml Syr IV PUSH 1 mg Q2H PRN Administration Breakthrough Pain Rated 4-6 or NPO Lactated Ringer's 1,000 mls @ 100 mls/hr 07/24/24 20:38 07/26/24 02:29 Lr - Lactated Ringers Iv IV CONT 100 mls/hr .Q10H EMILE Administration Ibuprofen 800 mg in 200 mls @ 400 mls/hr 07/24/24 21:00 07/26/24 02:59 Caldolor 800 Mg/200 Ml IVPB Infused Q6H EMILE Infusion Dextrose 1,000 mls @ 50 mls/hr 07/25/24 14:35 Dextrose 10% IV CONT .Q20H PRN if PN is interrupted Multivitamins 1.25 ml/ 1,002.5 mls @ 40 mls/hr 07/25/24 14:35 07/25/24 15:24 Multivitamins 1.25 ml/ Amino IV CONT 40 mls/hr Acids/Electrolytes/Dextrose .Q24H EMILE Administration Protocol Fat Emulsion Intravenous 250 mls @ 20.833 mls/hr 07/25/24 14:35 07/26/24 03:25 Lipids 20% IVPB Infused Q24H EMILE Infusion Dextrose 1,000 mls @ 100 mls/hr 07/25/24 14:35 Dextrose 5% 1,000 Ml IVPB PRN PRN Hypoglycemia Protocol Insulin Aspart 3 - 6 units 07/25/24 18:00 07/26/24 05:48 Insulin Aspart (*Bkc) 100 Units/Ml SUB-Q Not Given Q6HR [facility] Protocol Lorazepam 0.5 mg 07/25/24 19:49 07/26/24 02:29 Lorazepam Inj (*Crx) 2 Mg/Ml Vial IV PUSH 0.5 mg Q6H PRN Administration Anxiety Lorazepam 1 mg 07/25/24 22:42 Lorazepam Inj (*Crx) 2 Mg/Ml Vial IV PUSH Q2H PRN CIWA 8-15 Lorazepam 2 mg 07/25/24 22:42 Lorazepam Inj (*Crx) 2 Mg/Ml Vial IV PUSH Q2H PRN CIWA > 15 Miscellaneous Information 1 each 07/25/24 00:01 Nonformulary Drug (Desvenlafaxine Succinate 25 Mg Tablet Extended Release 24 Hr)Can Patien XX 08/24/24 00:00 [facility] [place] Miscellaneous Information 1 each 07/25/24 00:01 Ssi Entered Twice 2 Different Types And One Has No Dosing. Please Clarify XX 08/24/24 00:00 [facility] [place] Naloxone HCl 0.1 mg 07/24/24 20:38 Naloxone Hcl 0.4 Mg/Ml Vial IV PUSH Q2M PRN Opiate Reversal Non-Formulary Medication 25 mg 07/26/24 09:00 Desvenlafaxine Succinate PO 08/25/24 08:59 DAILY EMILE Ondansetron HCl 4 mg 07/24/24 20:38 07/25/24 19:39 Ondansetron Inj 4 Mg/2 Ml Vial IV PUSH 4 mg Q4H PRN Administration Nausea And Vomiting Sodium Chloride 10 ml 07/25/24 14:00 07/26/24 05:48 Central Line Flush IV PUSH 10 ml Q8HR EMILE Administration Sodium Chloride 10 ml 07/25/24 11:31 Central Line Flush IV PUSH PRN PRN with TPN bag changes Sodium Chloride 20 ml 07/25/24 11:31 Central Line Flush IV PUSH PRN PRN after blood draws Thiamine HCl 100 mg 07/26/24 09:00 Thiamine Hcl 200 Mg/2 Ml Vial IV PUSH DAILY EMILE Radiology Results: ITS Impressions Abdomen X-Ray 07/26/24 06:20 Impression: NG tube in place. Small bowel obstruction. Labs Labs: Laboratory Results - last 24 hr 07/25/24 07/25/24 07/25/24 04:25 05:00 08:39 WBC 12.8 H RBC 4.94 Hgb 15.3 D Hct 46.2 MCV 93.5 MCH 31.0 MCHC 33.1 RDW 12.6 Plt Count 583 H D MPV 9.7 Immature Gran % (Auto) Neut % (Auto) Lymph % (Auto) Cassia % (Auto) Eos % (Auto) Baso % (Auto) Lymph # (Auto) Cassia # (Auto) Eos # (Auto) Baso # (Auto) Abs Immat Gran (auto) Absolute Neuts (auto) Absolute Nucleated RBC Nucleated RBC % APTT Sodium 136 L Potassium 5.2 H Chloride 102 Carbon Dioxide 30 Anion Gap 4 BUN 10 Creatinine 1.20 Estim Creat Clear Calc 90 Estimated GFR > 60 Glucose 122 H POC Capillary Glucose Calcium 8.4 Phosphorus Magnesium Transferrin Total Bilirubin 0.5 AST 27 ALT 17 Alkaline Phosphatase 73 Total Protein 5.5 L Albumin 2.9 L Nasal MRSA (PCR) Not detected 07/25/24 07/25/24 07/25/24 15:28 15:36 17:53 WBC 11.9 H RBC 4.20 L Hgb 12.8 L Hct 39.2 L MCV 93.3 MCH 30.5 MCHC 32.7 RDW 12.5 Plt Count 471 H MPV 9.6 Immature Gran % (Auto) 0.6 H Neut % (Auto) 82.8 H Lymph % (Auto) 7.4 L Cassia % (Auto) 7.8 Eos % (Auto) 0.9 Baso % (Auto) 0.5 Lymph # (Auto) 0.88 L Cassia # (Auto) 0.9 H Eos # (Auto) 0.1 Baso # (Auto) 0.1 Abs Immat Gran (auto) 0.07 H Absolute Neuts (auto) 9.8 H Absolute Nucleated RBC 0.000 Nucleated RBC % 0.0 APTT 35.8 Sodium 136 L Potassium 4.2 Chloride 103 Carbon Dioxide 27 Anion Gap 6 BUN 14 Creatinine 1.10 Estim Creat Clear Calc 98 Estimated GFR > 60 Glucose 106 POC Capillary Glucose 106 H 118 H Calcium 7.9 L Phosphorus Magnesium 1.3 L Transferrin 97 L Total Bilirubin 0.6 AST 23 ALT 13 Alkaline Phosphatase 64 Total Protein 5.0 L Albumin 2.8 L Nasal MRSA (PCR) 07/26/24 07/26/24 07/26/24 00:07 04:25 05:39 WBC 10.5 H RBC 3.70 L Hgb 11.2 L Hct 34.8 L MCV 94.1 MCH 30.3 MCHC 32.2 RDW 12.5 Plt Count 412 H MPV 10.0 Immature Gran % (Auto) Neut % (Auto) Lymph % (Auto) Cassia % (Auto) Eos % (Auto) Baso % (Auto) Lymph # (Auto) Cassia # (Auto) Eos # (Auto) Baso # (Auto) Abs Immat Gran (auto) Absolute Neuts (auto) Absolute Nucleated RBC Nucleated RBC % APTT Sodium 134 L Potassium 3.9 Chloride 102 Carbon Dioxide 30 Anion Gap 2 L BUN 15 Creatinine 0.90 Estim Creat Clear Calc 118 Estimated GFR > 60 Glucose 115 H POC Capillary Glucose 112 H 131 H Calcium 8.2 L Phosphorus 2.6 Magnesium Transferrin Total Bilirubin AST ALT Alkaline Phosphatase Total Protein Albumin Nasal MRSA (PCR) Imaging Attestation: I personally reviewed and interpreted this imaging study as follows: (Plain film of the abdomen this morning) My impression: Ileus, NG tube in good position Radiologist's impression: Small-bowel obstruction
--- NOTE | 2024-07-26 07:24 | PM.IMPN ---
Progress Note: A&P Assessment and Plan (1) Perioperative dehiscence of abdominal wound with evisceration: Qualifiers: Encounter type: subsequent encounter Qualified Code(s): T81.321D - Disruption or dehiscence of closure of internal operation (surgical) wound of abdominal wall muscle or fascia, subsequent encounter Code(s): T81.321A - Disruption or dehiscence of closure of internal operation (surgical) wound of abdominal wall muscle or fascia, initial encounter Status: Acute Assessment and Plan: Postoperative day 2 status post repair of fascial dehiscence with extensive adhesiolysis for small-bowel obstruction and repair enterotomy x2 on 07/[address] Mccann. Wound care, pain control, and DVT prophylaxis deferred to primary service. (2) Abdominal adhesions: Code(s): K66.0 - Peritoneal adhesions (postprocedural) (postinfection) Status: Acute Assessment and Plan: Plan is as detailed above. 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: Code(s): K56.50 - Intestinal adhesions [bands], unspecified as to partial versus complete obstruction Status: Acute Assessment and Plan: As above. (4) Gastroesophageal reflux disease: Code(s): K21.9 - Gastro-esophageal reflux disease without esophagitis Status: Acute Assessment and Plan: Currently on famotidine 20 mg IV b.i.d. (5) Depression with anxiety: Code(s): F41.8 - Other specified anxiety disorders Status: Acute Assessment and Plan: Resume medications following return of bowel function. P.r.n. lorazepam available as needed. (6) History of alcohol withdrawal delirium: Code(s): Z86.59 - Personal history of other mental and behavioral disorders Status: Acute Assessment and Plan: He had alcohol withdrawal symptoms with his most recent hospitalization and states he has not had any significant alcohol since his discharge a little over week ago. Will initiate CIWA protocol Thiamine 100 mg IV daily Continue to monitor closely. (7) Protein-calorie malnutrition, moderate: Code(s): E44.0 - Moderate protein-calorie malnutrition Status: Acute Assessment and Plan: Continue TPN Time Spent With Patient Time with patient: 25 - 35 minutes Subjective Date/time seen: 07/26/24 07:24 Interval history: Patient is pleasant lying in bed. He states that his pain is well controlled on the current pain regimen. He is passing flatus but has not had a bowel movement. Review of Systems Review of Systems: All systems reviewed & are unremarkable except as noted in HPI and below Exam Narrative: AF HR 75 RR 18 SpO2 96 BP General: well nourished, well-developed male in no acute respiratory distress who is nontoxic appearing, lying semi recumbent in bed. HEENT: Normocephalic. Atraumatic. Extraocular movement intact. Sclera clear and anicteric. NG tube in place. No facial asymmetry. Chest: Lungs are clear to auscultation bilaterally. No wheezes or crackles. CV: Heart was regular rate and rhythm. S1/S2. No murmurs, gallops, or rubs. Abd: Abdomen was soft. Dressing in place is clean/dry/intact. Tender to palpation. Hypoactive bowel sounds. No organomegaly or masses. Neuro: Patient is alert. Speech is clear. Objective Data Vital Signs Vital Signs: Vital Signs - 24 hr 07/25/24 08:00 07/25/24 08:00 07/25/24 10:00 Temperature 97.6 F Pulse Rate 144 H 144 H 128 H Respiratory Rate 23 H Blood Pressure 81/67 L Pulse Oximetry 94 Oxygen Delivery 07/25/24 10:00 07/25/24 12:00 07/25/24 12:00 Temperature 99.4 F Pulse Rate 128 H 130 H 133 H Respiratory Rate 18 22 H Blood Pressure 105/72 108/76 Pulse Oximetry 97 95 Oxygen Delivery 07/25/24 14:00 07/25/24 14:00 07/25/24 16:00 Temperature 97.5 F L Pulse Rate 134 H 134 H 118 H Respiratory Rate 26 H 15 Blood Pressure 121/79 116/75 Pulse Oximetry 97 97 Oxygen Delivery 07/25/24 19:34 07/25/24 20:00 07/25/24 20:00 Temperature 97.7 F Pulse Rate 122 H Respiratory Rate 18 Blood Pressure 116/75 111/65 116/75 Pulse Oximetry 94 Oxygen Delivery 07/25/24 21:27 07/26/24 00:00 07/26/24 00:00 Temperature 97.7 F Pulse Rate 120 H Respiratory Rate 18 Blood Pressure 127/72 127/72 Pulse Oximetry 98 Oxygen Delivery Room Air 07/26/24 04:00 07/26/24 04:00 Temperature 97.8 F Pulse Rate 75 Respiratory Rate 18 Blood Pressure 127/72 106/58 L Pulse Oximetry 96 Oxygen Delivery Intake/Output Intake/Output: Intake & Output 07/23/24 07/24/24 07/25/24 07/26/24 23:59 23:59 23:59 23:59 Intake Total 950 2735 1446.7 Output Total 500 1540 Balance 450 1195 1446.7 Meds/Results Medications: Active Medications Generic Name Dose Route Start Last Admin Trade Name Freq PRN Reason Stop Dose Admin Amitriptyline HCl 25 mg 07/25/24 21:00 07/25/24 20:37 Amitriptyline Hcl 25 Mg Tablet PO Not Given HS EMILE Bupropion HCl 300 mg 07/26/24 09:00 Bupropion Hcl Xl (24 Hr) 150 Mg Tabcr PO DAILY EMILE Buspirone HCl 45 mg 07/26/24 09:00 Buspirone Hcl 5 Mg Tablet BY MOUTH DAILY EMILE Dextrose 12.5 gm 07/25/24 14:35 Dextrose 50% 25 Gm/50 Ml Syringe IV PUSH PRN PRN Hypoglycemia Protocol Enoxaparin Sodium 40 mg 07/25/24 09:00 07/25/24 08:11 Enoxaparin 40 Mg/0.4 Ml Syringe SUB-Q 40 mg DAILY EMILE Administration Famotidine 20 mg 07/24/24 21:00 07/25/24 20:32 Famotidine 20 Mg/2 Ml Vial IV PUSH 20 mg Q12HR EMILE Administration Glucagon 1 mg 07/25/24 14:35 Glucagon For Inj 1 Mg Vial IM PRN PRN Hypoglycemia Protocol Glucose 15 gm 07/25/24 14:35 Glucose Oral Gel 15 Gm Of Glucse In 37.5 Gm Tube PO PRN PRN Hypoglycemia Protocol Hydromorphone HCl 2 mg 07/24/24 20:38 07/25/24 06:10 Hydromorphone Hcl Inj (*Crx) 1 Mg/Ml Syr IV PUSH 2 mg Q2H PRN Administration Breakthrough Pain Rated 7-10 or NPO Hydromorphone HCl 1 mg 07/24/24 20:38 07/26/24 06:16 Hydromorphone Hcl Inj (*Crx) 1 Mg/Ml Syr IV PUSH 1 mg Q2H PRN Administration Breakthrough Pain Rated 4-6 or NPO Lactated Ringer's 1,000 mls @ 100 mls/hr 07/24/24 20:38 07/26/24 02:29 Lr - Lactated Ringers Iv IV CONT 100 mls/hr .Q10H EMILE Administration Ibuprofen 800 mg in 200 mls @ 400 mls/hr 07/24/24 21:00 07/26/24 02:59 Caldolor 800 Mg/200 Ml IVPB Infused Q6H EMILE Infusion Dextrose 1,000 mls @ 50 mls/hr 07/25/24 14:35 Dextrose 10% IV CONT .Q20H PRN if PN is interrupted Multivitamins 1.25 ml/ 1,002.5 mls @ 40 mls/hr 07/25/24 14:35 07/25/24 15:24 Multivitamins 1.25 ml/ Amino IV CONT 40 mls/hr Acids/Electrolytes/Dextrose .Q24H EMILE Administration Protocol Fat Emulsion Intravenous 250 mls @ 20.833 mls/hr 07/25/24 14:35 07/26/24 03:25 Lipids 20% IVPB Infused Q24H EMILE Infusion Dextrose 1,000 mls @ 100 mls/hr 07/25/24 14:35 Dextrose 5% 1,000 Ml IVPB PRN PRN Hypoglycemia Protocol Insulin Aspart 3 - 6 units 07/25/24 18:00 07/26/24 05:48 Insulin Aspart (*Bkc) 100 Units/Ml SUB-Q Not Given Q6HR [facility] Protocol Lorazepam 0.5 mg 07/25/24 19:49 07/26/24 02:29 Lorazepam Inj (*Crx) 2 Mg/Ml Vial IV PUSH 0.5 mg Q6H PRN Administration Anxiety Lorazepam 1 mg 07/25/24 22:42 Lorazepam Inj (*Crx) 2 Mg/Ml Vial IV PUSH Q2H PRN CIWA 8-15 Lorazepam 2 mg 07/25/24 22:42 Lorazepam Inj (*Crx) 2 Mg/Ml Vial IV PUSH Q2H PRN CIWA > 15 Miscellaneous Information 1 each 07/25/24 00:01 Nonformulary Drug (Desvenlafaxine Succinate 25 Mg Tablet Extended Release 24 Hr)Can Patien XX 08/24/24 00:00 CLARIFY [facility] Miscellaneous Information 1 each 07/25/24 00:01 Ssi Entered Twice 2 Different Types And One Has No Dosing. Please Clarify XX 08/24/24 00:00 CLARIFY EMILE Naloxone HCl 0.1 mg 07/24/24 20:38 Naloxone Hcl 0.4 Mg/Ml Vial IV PUSH Q2M PRN Opiate Reversal Non-Formulary Medication 25 mg 07/26/24 09:00 Desvenlafaxine Succinate PO 08/25/24 08:59 DAILY EMILE Ondansetron HCl 4 mg 07/24/24 20:38 07/25/24 19:39 Ondansetron Inj 4 Mg/2 Ml Vial IV PUSH 4 mg Q4H PRN Administration Nausea And Vomiting Sodium Chloride 10 ml 07/25/24 14:00 07/26/24 05:48 Central Line Flush IV PUSH 10 ml Q8HR EMILE Administration Sodium Chloride 10 ml 07/25/24 11:31 Central Line Flush IV PUSH PRN PRN with TPN bag changes Sodium Chloride 20 ml 07/25/24 11:31 Central Line Flush IV PUSH PRN PRN after blood draws Thiamine HCl 100 mg 07/26/24 09:00 Thiamine Hcl 200 Mg/2 Ml Vial IV PUSH DAILY [facility] Radiology Results: ITS Impressions Abdomen X-Ray 07/26/24 06:20 Impression: NG tube in place. Small bowel obstruction. Labs Labs: Laboratory Results - last 24 hr 07/25/24 07/25/24 07/25/24 04:25 05:00 08:39 WBC 12.8 H RBC 4.94 Hgb 15.3 D Hct 46.2 MCV 93.5 MCH 31.0 MCHC 33.1 RDW 12.6 Plt Count 583 H D MPV 9.7 Immature Gran % (Auto) Neut % (Auto) Lymph % (Auto) [place] % (Auto) Eos % (Auto) Baso % (Auto) Lymph # (Auto) [place] # (Auto) Eos # (Auto) Baso # (Auto) Abs Immat Gran (auto) Absolute Neuts (auto) Absolute Nucleated RBC Nucleated RBC % APTT Sodium 136 L Potassium 5.2 H Chloride 102 Carbon Dioxide 30 Anion Gap 4 BUN 10 Creatinine 1.20 Estim Creat Clear Calc 90 Estimated GFR > 60 Glucose 122 H POC Capillary Glucose Calcium 8.4 Phosphorus Magnesium Transferrin Total Bilirubin 0.5 AST 27 ALT 17 Alkaline Phosphatase 73 Total Protein 5.5 L Albumin 2.9 L Nasal MRSA (PCR) Not detected 07/25/24 07/25/2407/25/24 15:28 15:36 17:53 WBC 11.9 H RBC 4.20 L Hgb 12.8 L Hct 39.2 L MCV 93.3 MCH 30.5 MCHC 32.7 RDW 12.5 Plt Count 471 H MPV 9.6 Immature Gran % (Auto) 0.6 H Neut % (Auto) 82.8 H Lymph % (Auto) 7.4 L [place] % (Auto) 7.8 Eos % (Auto) 0.9 Baso % (Auto) 0.5 Lymph # (Auto) 0.88 L [place] # (Auto) 0.9 H Eos # (Auto) 0.1 Baso # (Auto) 0.1 Abs Immat Gran (auto) 0.07 H Absolute Neuts (auto) 9.8 H Absolute Nucleated RBC 0.000 Nucleated RBC % 0.0 APTT 35.8 Sodium 136 L Potassium 4.2 Chloride 103 Carbon Dioxide 27 Anion Gap 6 BUN 14 Creatinine 1.10 Estim Creat Clear Calc 98 Estimated GFR > 60 Glucose 106 POC Capillary Glucose 106 H 118 H Calcium 7.9 L Phosphorus Magnesium 1.3 L Transferrin 97 L Total Bilirubin 0.6 AST 23 ALT 13 Alkaline Phosphatase 64 Total Protein 5.0 L Albumin 2.8 L Nasal MRSA (PCR) 07/26/24 07/26/24 07/26/24 00:07 04:25 05:39 WBC 10.5 H RBC 3.70 L Hgb 11.2 L Hct 34.8 L MCV 94.1 MCH 30.3 MCHC 32.2 RDW 12.5 Plt Count 412 H MPV 10.0 Immature Gran % (Auto) Neut % (Auto) Lymph % (Auto) [place] % (Auto) Eos % (Auto) Baso % (Auto) Lymph # (Auto) [place] # (Auto) Eos # (Auto) Baso # (Auto) Abs Immat Gran (auto) Absolute Neuts (auto) Absolute Nucleated RBC Nucleated RBC % APTT Sodium 134 L Potassium 3.9 Chloride 102 Carbon Dioxide 30 Anion Gap 2 L BUN 15 Creatinine 0.90 Estim Creat Clear Calc 118 Estimated GFR > 60 Glucose 115 H POC Capillary Glucose 112 H 131 H Calcium 8.2 L Phosphorus 2.6 Magnesium Transferrin Total Bilirubin AST ALT Alkaline Phosphatase Total Protein Albumin Nasal MRSA (PCR) Quality VTE Prophylaxis VTE prophylaxis: mechanical ordered
[2024-07-26 08:00] VITALS: BP 116/66; PULSE 120; RESP 16; O2SAT 97
[2024-07-26] MEDS: KCL 30 MEQ/0.9% SOD CHL 1,000 ML 60 ML IV CONT (09:00)
[2024-07-26] MEDS: ENOXAPARIN 40 MG/0.4 ML SYRINGE SUB-Q (09:00)
[2024-07-26] MEDS: THIAMINE HCL 200 MG/2 ML VIAL 100 MG IV PUSH (09:00)
[2024-07-26] MEDS: FAMOTIDINE 20 MG/2 ML VIAL IV PUSH ×2 (09:01→20:43)
[2024-07-26] MEDS: ONDANSETRON INJ 4 MG/2 ML VIAL IV PUSH ×2 (09:04→14:43)
[2024-07-26 11:58] LABS: Glucose Point of Care 98 mg/dl (65-105)
[2024-07-26 12:00] VITALS: BP 114/69; PULSE 124; RESP 14; TEMP 36.4; O2SAT 97
[2024-07-26] MEDS: AMINO ACIDS 5%/D15W/E-LYTES/CA 1,000 ML with MULTIVITAMINS-12 INJ VIAL 1 1.25 ML, MULTI... 40 ML IV CONT (14:33)
[2024-07-26] MEDS: FAT EMULSIONS IV 20% 250 ML 20.83 ML IVPB (14:34)
[2024-07-26 16:00] VITALS: BP 103/57; PULSE 118; RESP 14; O2SAT 95
[2024-07-26 16:24] LABS: Triglycerides 139 mg/dL (<150)
[2024-07-26 17:34] LABS: Glucose Point of Care 107 mg/dl (65-105)
[2024-07-26 20:00] VITALS: BP 120/69; PULSE 124; RESP 18; TEMP 37.6; O2SAT 95
[2024-07-27] VITALS (7 sets, daily range): BP systolic 109–134; BP diastolic 66–90; PULSE 87–124; RESP 18; TEMP 35.9–37.4; O2SAT 95–98
[2024-07-27 00:21] LABS: Glucose Point of Care 122 mg/dl (65-105)
[2024-07-27] MEDS: HYDROmorphone HCL INJ (*CRX) 1 MG/ML SYR IV PUSH ×10 (00:23→22:33)
[2024-07-27] MEDS: ONDANSETRON INJ 4 MG/2 ML VIAL IV PUSH (00:24)
[2024-07-27] MEDS: IBUPROFEN IV 800 MG/200 ML 800 MG/200 ML BAG 400 MG IVPB ×4 (03:55→21:47)
[2024-07-27] MEDS: BENZOCAINE/MENTHOL (*BKC) 18 EA LOZENGE 1 LOZENGE PO ×2 (03:59→20:55)
[2024-07-27] MEDS: PHENOL/SOD PHENO SPRAY CHERRY (*BKC) 1 SPRAY MUCOUS MEM ×2 (05:10→20:55)
[2024-07-27] MEDS: CENTRAL LINE FLUSH 10 ML IV PUSH ×3 (05:29→21:49)
[2024-07-27] MEDS: KCL 30 MEQ/0.9% SOD CHL 1,000 ML 60 ML IV CONT (05:31)
[2024-07-27 05:35] LABS: Basophils Percent Auto 0.3 % (0.2-1.2); Eosinophils Absolute Auto 0.5 K/mm3 (0-0.3); Hematocrit 29.7 % (42.0-52.0); Hemoglobin 9.9 g/dL (14.0-18.0); Immature Granulocyte Absolute 0.07 K/mm3 (0.00-0.031); Immature Granulocyte Percent A 1.2 % (0-0.5); Lymphocytes Percent Auto 14.9 % (18.3-44.2); Mean Corpuscular HGB Conc 33.3 g/dl (32-36); Mean Corpuscular Hemoglobin 30.9 pg (26-34); Mean Corpuscular Volume 92.8 fl (80-100); Mean Platelet Volume 9.8 fl (7.4-10.4); Monocytes Absolute Auto 0.5 K/mm3 (0.1-0.6); Monocytes Percent Auto 8.8 % (2.6-8.5); Neutrophils Percent Auto 66.8 % (45.5-73.1); Platelet Count Result 339 k/mm3 (150-375); Red Cell Distribution Width 12.1 % (11.5-14.5)
[2024-07-27 05:46] LABS: Alanine Aminotransferase 11 U/L (6-50); Albumin Level 2.3 g/dL (3.5-5.1); Alkaline Phosphatase 75 U/L (38-126); Anion Gap 4 mmol/L (4-12); Aspartate Amino Transferase 18 U/L (17-59); Bilirubin,Total 0.3 mg/dL (0.2-1.3); Blood Urea Nitrogen 11 mg/dL (9-20); Calcium 7.9 mg/dL (8.4-10.2); Carbon Dioxide 28 mmol/L (22-30); Chloride 104 mmol/L (98-107); Estimated CRCL calculation 132 ml/min; Estimated Glomerular Filt Rate > 60; Glucose 98 mg/dL (65-110); Magnesium 1.7 mg/dL (1.6-2.3); Phosphorus 2.5 mg/dL (2.5-4.5); Potassium 3.3 mmol/L (3.4-5.0); Sodium 136 mmol/L (137-145)
[2024-07-27 06:10] LABS: Glucose Point of Care 98 mg/dl (65-105)
--- NOTE | 2024-07-27 06:52 | P.PNGS_ITS ---
Progress Note: A&P Assessment and Plan (1) H/O lysis of adhesions: Code(s): Z98.890 - Other specified postprocedural states Status: Acute Assessment and Plan: Await return bowel function. DC Sin today and ambulate. Pain control adequate. Dressing changes are being done daily. Recheck labs, exam tomorrow. Had large volume per NG yesterday. This is not unexpected. Will increase IV fluids and increase potassium which is decreased to 3.3 (2) Perioperative dehiscence of abdominal wound with evisceration: Qualifiers: Encounter type: subsequent encounter Qualified Code(s): T81.321D - Disruption or dehiscence of closure of internal operation (surgical) wound of abdominal wall muscle or fascia, subsequent encounter Code(s): T81.321A - Disruption or dehiscence of closure of internal operation (surgical) wound of abdominal wall muscle or fascia, initial encounter Status: Acute Assessment and Plan: Index laparotomy performed 07/06/2024. Patient experienced nausea and vomiting at home after discharge. Extensive vomiting from recurrent SBO likely the cause of the dehiscence and evisceration 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: Code(s): K56.50 - Intestinal adhesions [bands], unspecified as to partial versus complete obstruction Status: Acute Assessment and Plan: Recurrent SBO, relieved with extensive adhesiolysis yesterday (4) Protein-calorie malnutrition, moderate: Code(s): E44.0 - Moderate protein-calorie malnutrition Status: Acute Assessment and Plan: Continue TPN but increase rate. Subjective Subjective Date/Time Seen: 07/27/24 06:52 Post Op day: 3 Patient reports: no new complaints, still having pain, flatus, no bowel movement and afebrile Exam Const: General: comfortable and no acute distress Orientation/consciousn ess: patient oriented x3 GI: Inspection: no abdominal wall ecchymosis, incision (Dressing dry and intact) and no visible herniation GI Palp: Yes Soft to palpation, Yes Tenderness to palpation present (GI) (Still diffusely tender), No Guarding due to palpation present (GI) and No Rebound tenderness present Auscultation: absent bowel sounds Neuro: General: patient oriented x3 and no focal motor deficits Extrem: General: no calf tenderness and no edema Psych: Affect: normal affect Insight: Good insight present (Psych) Judgement: Good judgement present (Psych) Objective Data Vital Signs Vital Signs: Vital Signs - 24 hr 07/26/24 08:00 07/26/24 08:55 07/26/24 12:00 Temperature 36.4 C Pulse Rate 120 H 124 H Respiratory Rate 16 14 Blood Pressure 116/66 114/69 Pulse Oximetry 97 97 Oxygen Delivery Room Air 07/26/24 16:00 07/26/24 20:00 07/26/24 20:00 Temperature 37.6 C Pulse Rate 118 H 124 H Respiratory Rate 14 18 Blood Pressure 103/57 L 120/69 120/69 Pulse Oximetry 95 95 Oxygen Delivery 07/26/24 20:00 07/27/24 00:00 07/27/24 00:00 Temperature 36.4 C Pulse Rate 106 H Respiratory Rate 18 Blood Pressure 109/66 109/66 Pulse Oximetry 96 Oxygen Delivery Room Air 07/27/24 04:00 Temperature 36.3 C L Pulse Rate 115 H Respiratory Rate 18 Blood Pressure 115/71 Pulse Oximetry 95 Oxygen Delivery Intake/Output Intake/Output: Intake & Output 07/24/24 07/25/24 07/26/24 07/27/24 23:59 23:59 23:59 23:59 Intake Total 950 2735 3051.4 1200 Output Total 500 1540 3550 1840 Balance 450 1195 -498.6 -640 Meds/Results Medications: Active Medications Generic Name Dose Route Start Last Admin Trade Name Freq PRN Reason Stop Dose Admin Amitriptyline HCl 25 mg 07/25/24 21:00 07/26/24 20:46 Amitriptyline Hcl 25 Mg Tablet PO Not Given HS EMILE Benzocaine 1 lozenge 07/26/24 09:56 07/27/24 03:59 Benzocaine/Menthol (*Bkc) 18 Ea Lozenge PO 1 lozenge PRN PRN Administration Sore Throat Bupropion HCl 300 mg 07/26/24 09:00 07/26/24 08:59 Bupropion Hcl Xl (24 Hr) 150 Mg Tabcr PO Not Given DAILY EMILE Buspirone HCl 45 mg 07/26/24 09:00 07/26/24 08:59 Buspirone Hcl 5 Mg Tablet BY MOUTH Not Given DAILY EMILE Dextrose 12.5 gm 07/25/24 14:35 Dextrose 50% 25 Gm/50 Ml Syringe IV PUSH PRN PRN Hypoglycemia Protocol Enoxaparin Sodium 40 mg 07/25/24 09:00 07/26/24 09:00 Enoxaparin 40 Mg/0.4 Ml Syringe SUB-Q 40 mg DAILY EMILE Administration Famotidine 20 mg 07/24/24 21:00 07/26/24 20:43 Famotidine 20 Mg/2 Ml Vial IV PUSH 20 mg Q12HR EMILE Administration Glucagon 1 mg 07/25/24 14:35 Glucagon For Inj 1 Mg Vial IM PRN PRN Hypoglycemia Protocol Glucose 15 gm 07/25/24 14:35 Glucose Oral Gel 15 Gm Of Glucse In 37.5 Gm Tube PO PRN PRN Hypoglycemia Protocol Hydromorphone HCl 2 mg 07/24/24 20:38 07/25/24 06:10 Hydromorphone Hcl Inj (*Crx) 1 Mg/Ml Syr IV PUSH 2 mg Q2H PRN Administration Breakthrough Pain Rated 7-10 or NPO Hydromorphone HCl 1 mg 07/24/24 20:38 07/27/24 05:10 Hydromorphone Hcl Inj (*Crx) 1 Mg/Ml Syr IV PUSH 1 mg Q2H PRN Administration Breakthrough Pain Rated 4-6 or NPO Ibuprofen 800 mg in 200 mls @ 400 mls/hr 07/24/24 21:00 07/27/24 04:25 Caldolor 800 Mg/200 Ml IVPB Infused Q6H EMILE Infusion Dextrose 1,000 mls @ 50 mls/hr 07/25/24 14:35 Dextrose 10% IV CONT .Q20H PRN if PN is interrupted Multivitamins 1.25 ml/ 1,002.5 mls @ 70 mls/hr 07/25/24 14:35 07/26/24 16:31 Multivitamins 1.25 ml/ Amino IV CONT 60 mls/hr Acids/Electrolytes/Dextrose .[id number] EMILE Infusion Protocol Fat Emulsion Intravenous 250 mls @ 20.833 mls/hr 07/25/24 14:35 07/26/24 14:34 Lipids 20% IVPB 20.83 mls/hr Q24H EMILE Administration Dextrose 1,000 mls @ 100 mls/hr 07/25/24 14:35 Dextrose 5% 1,000 Ml IVPB PRN PRN Hypoglycemia Protocol Insulin Aspart 3 - 6 units 07/25/24 18:00 07/27/24 05:54 Insulin Aspart (*Bkc) 100 Units/Ml SUB-Q Not Given Q6HR EMILE Protocol Lorazepam 0.5 mg 07/25/24 19:49 07/26/24 22:02 Lorazepam Inj (*Crx) 2 Mg/Ml Vial IV PUSH 0.5 mg Q6H PRN Administration Anxiety Lorazepam 1 mg 07/25/24 22:42 Lorazepam Inj (*Crx) 2 Mg/Ml Vial IV PUSH Q2H PRN CIWA 8-15 Lorazepam 2 mg 07/25/24 22:42 Lorazepam Inj (*Crx) 2 Mg/Ml Vial IV PUSH Q2H PRN CIWA > 15 Naloxone HCl 0.1 mg 07/24/24 20:38 Naloxone Hcl 0.4 Mg/Ml Vial IV PUSH Q2M PRN Opiate Reversal Ondansetron HCl 4 mg 07/24/24 20:38 07/27/24 00:24 Ondansetron Inj 4 Mg/2 Ml Vial IV PUSH 4 mg Q4H PRN Administration Nausea And Vomiting Phenol 1 spray 07/27/24 04:00 07/27/24 05:10 Phenol/Sod Pheno [place] (*Bkc) MUCOUS MEM 1 spray PRN PRN Administration Sore Throat Sodium Chloride 10 ml 07/25/24 14:00 07/27/24 05:29 Central Line Flush IV PUSH 10 ml Q8HR MEILE Administration Sodium Chloride 10 ml 07/25/24 11:31 Central Line Flush IV PUSH PRN PRN with TPN bag changes Sodium Chloride 20 ml 07/25/24 11:31 Central Line Flush IV PUSH PRN PRN after blood draws Thiamine HCl 100 mg 07/26/24 09:00 07/26/24 09:00 Thiamine Hcl 200 Mg/2 Ml Vial IV PUSH 100 mg DAILY EMILE Administration Radiology Results: ITS Impressions Abdomen X-Ray 07/26/24 13:44 IMPRESSION: 1: NG tube tip in the stomach. Labs Labs: Laboratory Results - last 24 hr 07/26/24 07/26/24 07/26/24 11:54 14:24 17:32 WBC RBC Hgb Hct MCV MCH MCHC RDW Plt Count MPV Immature Gran % (Auto) Neut % (Auto) Lymph % (Auto) [place] % (Auto) Eos % (Auto) Baso % (Auto) Lymph # (Auto) [place] # (Auto) Eos # (Auto) Baso # (Auto) Abs Immat Gran (auto) Absolute Neuts (auto) Absolute Nucleated RBC Nucleated RBC % Sodium Potassium Chloride Carbon Dioxide Anion Gap BUN Creatinine Estim Creat Clear Calc Estimated GFR Glucose POC Capillary Glucose 98 107 H Calcium Phosphorus Magnesium Total Bilirubin AST ALT Alkaline Phosphatase Total Protein Albumin Triglycerides 139 07/26/24 07/27/24 07/27/24 23:44 05:25 06:07 WBC 6.0 RBC 3.20 L Hgb 9.9 L Hct 29.7 L MCV 92.8 MCH 30.9 MCHC 33.3 RDW 12.1 Plt Count 339 MPV 9.8 Immature Gran % (Auto) 1.2 H Neut % (Auto) 66.8 Lymph % (Auto) 14.9 L [place] % (Auto) 8.8 H Eos % (Auto) 8.0 H Baso % (Auto) 0.3 Lymph # (Auto) 0.90 [place] # (Auto) 0.5 Eos # (Auto) 0.5 H Baso # (Auto) 0.0 Abs Immat Gran (auto) 0.07 H Absolute Neuts (auto) 4.0 Absolute Nucleated RBC 0.000 Nucleated RBC % 0.0 Sodium 136 L Potassium 3.3 L Chloride 104 Carbon Dioxide 28 Anion Gap 4 BUN 11 Creatinine 0.80 Estim Creat Clear Calc 132 Estimated GFR > 60 Glucose 98 POC Capillary Glucose 122 H 98 Calcium 7.9 L Phosphorus 2.5 Magnesium 1.7 Total Bilirubin 0.3 AST 18 ALT 11 Alkaline Phosphatase 75 Total Protein 5.0 L Albumin 2.3 L Triglycerides
--- NOTE | 2024-07-27 07:00 | P.PNIM_ITS ---
Progress Note: A&P Assessment and Plan (1) Perioperative dehiscence of abdominal wound with evisceration: Qualifiers: Encounter type: subsequent encounter Qualified Code(s): T81.321D - Disruption or dehiscence of closure of internal operation (surgical) wound of abdominal wall muscle or fascia, subsequent encounter Code(s): T81.321A - Disruption or dehiscence of closure of internal operation (surgical) wound of abdominal wall muscle or fascia, initial encounter Status: Acute Assessment and Plan: Postoperative day 3 status post repair of fascial dehiscence with extensive adhesiolysis for small-bowel obstruction and repair enterotomy x2 on 07/[address] Mccann. Wound care, pain control, and DVT prophylaxis deferred to primary service. (2) Abdominal adhesions: Code(s): K66.0 - Peritoneal adhesions (postprocedural) (postinfection) Status: Acute Assessment and Plan: Plan is as detailed above. 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: Code(s): K56.50 - Intestinal adhesions [bands], unspecified as to partial versus complete obstruction Status: Acute Assessment and Plan: As above. (4) Gastroesophageal reflux disease: Code(s): K21.9 - Gastro-esophageal reflux disease without esophagitis Status: Acute Assessment and Plan: Currently on famotidine 20 mg IV b.i.d. (5) Depression with anxiety: Code(s): F41.8 - Other specified anxiety disorders Status: Acute Assessment and Plan: Resume medications following return of bowel function. P.r.n. lorazepam a vailable as needed. (6) History of alcohol withdrawal delirium: Code(s): Z86.59 - Personal history of other mental and behavioral disorders Status: Acute Assessment and Plan: He had alcohol withdrawal symptoms with his most recent hospitalization and states he has not had any significant alcohol since his discharge a little over week ago. Will initiate CIWA protocol Thiamine 100 mg IV daily Continue to monitor closely. Remains stable. Denies any withdrawal symptoms. (7) Protein-calorie malnutrition, moderate: Code(s): E44.0 - Moderate protein-calorie malnutrition Status: Acute Assessment and Plan: Continue TPN Time Spent With Patient Time with patient: 15 - 25 minutes Subjective Date/time seen: 07/27/24 07:00 Interval history: Patient is pleasant lying comfortably in his bed. He states that he is doing well and his pain is controlled on the current regimen. He still has not had a bowel movement but continues to pass flatus. He has no complaints denying chest pain, shortness of breath, nausea/vomiting. Review of Systems Review of Systems: All systems reviewed & are unremarkable except as noted in HPI and below Exam Narrative: AF HR 87 RR 18 Spo2 96 BP 120/78 General: well nourished, well-developed male in no acute respiratory distress who is nontoxic appearing, lying semi recumbent in bed. HEENT: Normocephalic. Atraumatic. Extraocular movement intact. Sclera clear and anicteric. NG tube in place. No facial asymmetry. Chest: Lungs are clear to auscultation bilaterally. No wheezes or crackles. CV: Heart was regular rate and rhythm. S1/S2. No murmurs, gallops, or rubs. Abd: Abdomen was soft. Dressing in place is clean/dry/intact. Tender to palpation. Hypoactive bowel sounds. No organomegaly or masses. Neuro: Patient is alert. Speech is clear. Objective Data Vital Signs Vital Signs: Vital Signs - 24 hr 07/26/24 08:00 07/26/24 08:55 07/26/24 12:00 Temperature 97.6 F Pulse Rate 120 H 124 H Respiratory Rate 16 14 Blood Pressure 116/66 114/69 Pulse Oximetry 97 97 Oxygen Delivery Room Air 07/26/24 16:00 07/26/24 20:00 07/26/24 20:00 Temperature 99.6 F Pulse Rate 118 H 124 H Respiratory Rate 14 18 Blood Pressure 103/57 L 120/69 120/69 Pulse Oximetry 95 95 Oxygen Delivery 07/26/24 20:00 07/27/24 00:00 07/27/24 00:00 Temperature 97.6 F Pulse Rate 106 H Respiratory Rate 18 Blood Pressure 109/66 109/66 Pulse Oximetry 96 Oxygen Delivery Room Air 07/27/24 04:00 Temperature 97.4 F L Pulse Rate 115 H Respiratory Rate 18 Blood Pressure 115/71 Pulse Oximetry 95 Oxygen Delivery Intake/Output Intake/Output: Intake & Output 07/24/24 07/25/24 07/26/24 07/27/24 23:59 23:59 23:59 23:59 Intake Total 950 2735 3051.4 1200 Output Total 500 1540 3550 1840 Balance 450 1195 -498.6 -640 Meds/Results Medications: Active Medications Generic Name Dose Route Start Last Admin Trade Name Freq PRN Reason Stop Dose Admin Amitriptyline HCl 25 mg 07/25/24 21:00 07/26/24 20:46 Amitriptyline Hcl 25 Mg Tablet PO Not Given HS EMILE Benzocaine 1 lozenge 07/26/24 09:56 07/27/24 03:59 Benzocaine/Menthol (*Bkc) 18 Ea Lozenge PO 1 lozenge PRN PRN Administration Sore Throat Bupropion HCl 300 mg 07/26/24 09:00 07/26/24 08:59 Bupropion Hcl Xl (24 Hr) 150 Mg Tabcr PO Not Given DAILY EMILE Buspirone HCl 45 mg 07/26/24 09:00 07/26/24 08:59 Buspirone Hcl 5 Mg Tablet BY MOUTH Not Given DAILY EMILE Dextrose 12.5 gm 07/25/24 14:35 Dextrose 50% 25 Gm/50 Ml Syringe IV PUSH PRN PRN Hypoglycemia Protocol Enoxaparin Sodium 40 mg 07/25/24 09:00 07/26/24 09:00 Enoxaparin 40 Mg/0.4 Ml Syringe SUB-Q 40 mg DAILY EMILE Administration Famotidine 20 mg 07/24/24 21:00 07/26/24 20:43 Famotidine 20 Mg/2 Ml Vial IV PUSH 20 mg Q12HR EMILE Administration Glucagon 1 mg 07/25/24 14:35 Glucagon For Inj 1 Mg Vial IM PRN PRN Hypoglycemia Protocol Glucose 15 gm 07/25/24 14:35 Glucose Oral Gel 15 Gm Of Glucse In 37.5 Gm Tube PO PRN PRN Hypoglycemia Protocol Hydromorphone HCl 2 mg 07/24/24 20:38 07/25/24 06:10 Hydromorphone Hcl Inj (*Crx) 1 Mg/Ml Syr IV PUSH 2 mg Q2H PRN Administration Breakthrough Pain Rated 7-10 or NPO Hydromorphone HCl 1 mg 07/24/24 20:38 07/27/24 05:10 Hydromorphone Hcl Inj (*Crx) 1 Mg/Ml Syr IV PUSH 1 mg Q2H PRN Administration Breakthrough Pain Rated 4-6 or NPO Ibuprofen 800 mg in 200 mls @ 400 mls/hr 07/24/24 21:00 07/27/24 04:25 Caldolor 800 Mg/200 Ml IVPB Infused Q6H [facility] Infusion Dextrose 1,000 mls @ 50 mls/hr 07/25/24 14:35 Dextrose 10% IV CONT .Q20H PRN if PN is interrupted Multivitamins 1.25 ml/ 1,002.5 mls @ 70 mls/hr 07/25/24 14:35 07/26/24 16:31 Multivitamins 1.25 ml/ Amino IV CONT 60 mls/hr Acids/Electrolytes/Dextrose .[id number] [facility] Infusion Protocol Fat Emulsion Intravenous 250 mls @ 20.833 mls/hr 07/25/24 14:35 07/26/24 14:34 Lipids 20% IVPB 20.83 mls/hr Q24H EMILE Administration Dextrose 1,000 mls @ 100 mls/hr 07/25/24 14:35 Dextrose 5% 1,000 Ml IVPB PRN PRN Hypoglycemia Protocol Potassium Chloride/Dextrose/Sod Cl 1,000 mls @ 80 mls/hr 07/27/24 06:50 Kcl 40 Meq/D5ns IV CONT .[id number] [facility] Insulin Aspart 3 - 6 units 07/25/24 18:00 07/27/24 05:54 Insulin Aspart (*Bkc) 100 Units/Ml SUB-Q Not Given Q6HR [facility] Protocol Lorazepam 0.5 mg 07/25/24 19:49 07/26/24 22:02 Lorazepam Inj (*Crx) 2 Mg/Ml Vial IV PUSH 0.5 mg Q6H PRN Administration Anxiety Lorazepam 1 mg 07/25/24 22:42 Lorazepam Inj (*Crx) 2 Mg/Ml Vial IV PUSH Q2H PRN CIWA 8-15 Lorazepam 2 mg 07/25/24 22:42 Lorazepam Inj (*Crx) 2 Mg/Ml Vial IV PUSH Q2H PRN CIWA > 15 Naloxone HCl 0.1 mg 07/24/24 20:38 Naloxone Hcl 0.4 Mg/Ml Vial IV PUSH Q2M PRN Opiate Reversal Ondansetron HCl 4 mg 07/24/24 20:38 07/27/24 00:24 Ondansetron Inj 4 Mg/2 Ml Vial IV PUSH 4 mg Q4H PRN Administration Nausea And Vomiting Phenol 1 spray 07/27/24 04:00 07/27/24 05:10 Phenol/Sod Pheno [place] (*Bkc) MUCOUS MEM 1 spray PRN PRN Administration Sore Throat Sodium Chloride 10 ml 07/25/24 14:00 07/27/24 05:29 Central Line Flush IV PUSH 10 ml Q8HR EMILE Administration Sodium Chloride 10 ml 07/25/24 11:31 Central Line Flush IV PUSH PRN PRN with TPN bag changes Sodium Chloride 20 ml 07/25/24 11:31 Central Line Flush IV PUSH PRN PRN after blood draws Thiamine HCl 100 mg 07/26/24 09:00 07/26/24 09:00 Thiamine Hcl 200 Mg/2 Ml Vial IV PUSH 100 mg DAILY EMILE Administration Radiology Results: ITS Impressions Abdomen X-Ray 07/26/24 13:44 IMPRESSION: 1: NG tube tip in the stomach. Labs Labs: Laboratory Results - last 24 hr 07/26/24 07/26/24 07/26/24 11:54 14:24 17:32 WBC RBC Hgb Hct MCV MCH MCHC RDW Plt Count MPV Immature Gran % (Auto) Neut % (Auto) Lymph % (Auto) [place] % (Auto) Eos % (Auto) Baso % (Auto) Lymph # (Auto) [place] # (Auto) Eos # (Auto) Baso # (Auto) Abs Immat Gran (auto) Absolute Neuts (auto) Absolute Nucleated RBC Nucleated RBC % Sodium Potassium Chloride Carbon Dioxide Anion Gap BUN Creatinine Estim Creat Clear Calc Estimated GFR Glucose POC Capillary Glucose 98 107 H Calcium Phosphorus Magnesium Total Bilirubin AST ALT Alkaline Phosphatase Total Protein Albumin Triglycerides 139 07/26/24 07/27/24 07/27/24 23:44 05:25 06:07 WBC 6.0 RBC 3.20 L Hgb 9.9 L Hct 29.7 L MCV 92.8 MCH 30.9 MCHC 33.3 RDW 12.1 Plt Count 339 MPV 9.8 Immature Gran % (Auto) 1.2 H Neut % (Auto) 66.8 Lymph % (Auto) 14.9 L [place] % (Auto) 8.8 H Eos % (Auto) 8.0 H Baso % (Auto) 0.3 Lymph # (Auto) 0.90 [place] # (Auto) 0.5 Eos # (Auto) 0.5 H Baso # (Auto) 0.0 Abs Immat Gran (auto) 0.07 H Absolute Neuts (auto) 4.0 Absolute Nucleated RBC 0.000 Nucleated RBC % 0.0 Sodium 136 L Potassium 3.3 L Chloride 104 Carbon Dioxide 28 Anion Gap 4 BUN 11 Creatinine 0.80 Estim Creat Clear Calc 132 Estimated GFR > 60 Glucose 98 POC Capillary Glucose 122 H 98 Calcium 7.9 L Phosphorus 2.5 Magnesium 1.7 Total Bilirubin 0.3 AST 18 ALT 11 Alkaline Phosphatase 75 Total Protein 5.0 L Albumin 2.3 L Triglycerides Quality VTE Prophylaxis VTE prophylaxis: mechanical ordered
[2024-07-27] MEDS: KCL 40 MEQ/D5/0.9% SOD CHL 1,000 ML 80 ML IV CONT ×2 (07:22→20:49)
[2024-07-27] MEDS: FAMOTIDINE 20 MG/2 ML VIAL IV PUSH ×2 (08:24→20:48)
[2024-07-27] MEDS: ENOXAPARIN 40 MG/0.4 ML SYRINGE SUB-Q (08:24)
[2024-07-27] MEDS: busPIRone HCL 5 MG TABLET 45 MG BY MOUTH (08:24)
[2024-07-27] MEDS: THIAMINE HCL 200 MG/2 ML VIAL 100 MG IV PUSH (08:25)
[2024-07-27] MEDS: buPROPion HCL XL (24 HR) 150 MG TABCR 300 MG PO (08:25)
[2024-07-27] MEDS: AMINO ACIDS 5%/D15W/E-LYTES/CA 1,000 ML with MULTIVITAMINS-12 INJ VIAL 1 1.25 ML, MULTI... 60 ML IV CONT (08:29)
[2024-07-27] MEDS: LORazepam INJ (*CRX) 2 MG/ML VIAL 0.5 MG IV PUSH ×2 (11:32→18:07)
[2024-07-27 11:38] LABS: Glucose Point of Care 102 mg/dl (65-105)
[2024-07-27] MEDS: FAT EMULSIONS IV 20% 250 ML 20.83 ML IVPB (13:36)
[2024-07-27 17:36] LABS: Glucose Point of Care 97 mg/dl (65-105)
[2024-07-28] VITALS (7 sets, daily range): BP systolic 131–145; BP diastolic 76–92; PULSE 105–110; RESP 16–18; TEMP 36.2–36.8; O2SAT 91–99
[2024-07-28 00:09] LABS: Glucose Point of Care 131 mg/dl (65-105)
[2024-07-28] MEDS: LORazepam INJ (*CRX) 2 MG/ML VIAL 0.5 MG IV PUSH ×3 (00:15→23:26)
[2024-07-28] MEDS: HYDROmorphone HCL INJ (*CRX) 1 MG/ML SYR IV PUSH ×8 (00:15→23:24)
[2024-07-28] MEDS: AMINO ACIDS 5%/D15W/E-LYTES/CA 1,000 ML with MULTIVITAMINS-12 INJ VIAL 1 1.25 ML, MULTI... 70 ML IV CONT (01:41)
[2024-07-28] MEDS: IBUPROFEN IV 800 MG/200 ML 800 MG/200 ML BAG 400 MG IVPB ×3 (03:11→20:10)
[2024-07-28] MEDS: CENTRAL LINE FLUSH 10 ML IV PUSH ×3 (05:46→22:38)
[2024-07-28 06:02] LABS: Hematocrit 30.3 % (42.0-52.0); Mean Corpuscular Hemoglobin 30.8 pg (26-34); Mean Corpuscular Volume 93.2 fl (80-100); Mean Platelet Volume 9.7 fl (7.4-10.4); Platelet Count Result 334 k/mm3 (150-375); Red Blood Count 3.25 M/mm3 (4.6-6.20); Red Cell Distribution Width 12.1 % (11.5-14.5)
[2024-07-28 06:15] LABS: Anion Gap -1 mmol/L (4-12); Blood Urea Nitrogen 6 mg/dL (9-20); Calcium 8.1 mg/dL (8.4-10.2); Carbon Dioxide 31 mmol/L (22-30); Chloride 105 mmol/L (98-107); Estimated CRCL calculation 171 ml/min; Estimated Glomerular Filt Rate > 60; Glucose 96 mg/dL (65-110); Phosphorus 3.9 mg/dL (2.5-4.5); Potassium 3.4 mmol/L (3.4-5.0); Sodium 135 mmol/L (137-145)
--- NOTE | 2024-07-28 07:15 | P.PNIM_ITS ---
Progress Note: A&P Assessment and Plan (1) Perioperative dehiscence of abdominal wound with evisceration: Qualifiers: Encounter type: subsequent encounter Qualified Code(s): T81.321D - Disruption or dehiscence of closure of internal operation (surgical) wound of abdominal wall muscle or fascia, subsequent encounter Code(s): T81.321A - Disruption or dehiscence of closure of internal operation (surgical) wound of abdominal wall muscle or fascia, initial encounter Status: Acute Assessment and Plan: Postoperative day 4 status post repair of fascial dehiscence with extensive adhesiolysis for small-bowel obstruction and repair enterotomy x2 on 07/[address] Mccann. Wound care, pain control, and DVT prophylaxis deferred to primary service. (2) Abdominal adhesions: Code(s): K66.0 - Peritoneal adhesions (postprocedural) (postinfection) Status: Acute Assessment and Plan: Plan is as detailed above. 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: Code(s): K56.50 - Intestinal adhesions [bands], unspecified as to partial versus complete obstruction Status: Acute Assessment and Plan: As above. (4) Gastroesophageal reflux disease: Code(s): K21.9 - Gastro-esophageal reflux disease without esophagitis Status: Acute Assessment and Plan: Currently on famotidine 20 mg IV b.i.d. (5) Depression with anxiety: Code(s): F41.8 - Other specified anxiety disorders Status: Acute Assessment and Plan: Resume medications following return of bowel function. P.r.n. lorazepam a vailable as needed. (6) History of alcohol withdrawal delirium: Code(s): Z86.59 - Personal history of other mental and behavioral disorders Status: Acute Assessment and Plan: He had alcohol withdrawal symptoms with his most recent hospitalization and states he has not had any significant alcohol since his discharge a little over week ago. Will initiate CIWA protocol Thiamine 100 mg IV daily Continue to monitor closely. Remains stable. Denies any withdrawal symptoms. (7) Protein-calorie malnutrition, moderate: Code(s): E44.0 - Moderate protein-calorie malnutrition Status: Acute Assessment and Plan: Continue TPN (8) Tachycardia: Code(s): R00.0 - Tachycardia, unspecified Status: Acute Assessment and Plan: Patient has been steadily tachycardic since surgery. Possibly related to pain vs anxiety, however will give him a fluid bolus and see if there is a response. Patient denies chest pain and palpitations. - Monitor Time Spent With Patient Time with patient: 25 - 35 minutes Subjective Date/time seen: 07/28/24 07:15 Interval history: Patient is pleasant lying in bed. He states that he has been a bit more anxious lately due to feeling confined in the hospital room. He also notes that his pain is a bit more prevalent with his increased movement. He has no complaints denying chest pain, shortness of breath, and palpitations. Review of Systems Review of Systems: 12 systems were reviewed and are negativ e except for as per HPI. All systems reviewed & are unremarkable except as noted in HPI and below Exam Narrative: AF HR 106 RR 18 SpO2 95 BP 145/92 General: well nourished, well-developed male in no acute respiratory distress who is nontoxic appearing, lying semi recumbent in bed. HEENT: Normocephalic. Atraumatic. Extraocular movement intact. Sclera clear and anicteric. NG tube in place. No facial asymmetry. Chest: Lungs are clear to auscultation bilaterally. No wheezes or crackles. CV: Heart was regular rate and rhythm. S1/S2. No murmurs, gallops, or rubs. Abd: Abdomen was soft. Dressing in place is clean/dry/intact. Tender to palpation. Hypoactive bowel sounds. No organomegaly or masses. Neuro: Patient is alert. Speech is clear. Objective Data Vital Signs Vital Signs: Vital Signs - 24 hr 07/27/24 08:00 07/27/24 08:25 07/27/24 12:00 Temperature 97.9 F 98.2 F Pulse Rate 87 114 H Respiratory Rate 18 18 18 Blood Pressure 120/78 120/76 Pulse Oximetry 96 96 98 Oxygen Delivery Room Air 07/27/24 16:00 07/27/24 20:00 07/27/24 20:00 Temperature 96.6 F L 99.3 F Pulse Rate 110 H 124 H Respiratory Rate 18 18 Blood Pressure 134/80 131/90 131/90 Pulse Oximetry 97 95 Oxygen Delivery 07/27/24 20:00 07/28/24 00:00 07/28/24 00:00 Temperature 98.2 F Pulse Rate 110 H Respiratory Rate 18 Blood Pressure 131/90 131/76 Pulse Oximetry 91 Oxygen Delivery Room Air 07/28/24 04:00 07/28/24 04:00 07/28/24 06:45 Temperature 97.5 F L 97.6 F Pulse Rate 106 H 107 H Respiratory Rate 18 18 Blood Pressure 131/76 132/81 145/92 H Pulse Oximetry 96 95 Oxygen Delivery Intake/Output Intake/Output: Intake & Output 07/25/24 07/26/24 07/27/24 07/28/24 23:59 23:59 23:59 23:59 Intake Total 2735 3051.4 3967.1 1452.5 Output Total 1540 3550 4340 850 Balance 1195 -498.6 -372.9 602.5 Meds/Results Medications: Active Medications Generic Name Dose Route Start Last Admin Trade Name Freq PRN Reason Stop Dose Admin Amitriptyline HCl 25 mg 07/25/24 21:00 07/27/24 21:34 Amitriptyline Hcl 25 Mg Tablet PO Not Given HS EMILE Benzocaine 1 lozenge 07/26/24 09:56 07/27/24 20:55 Benzocaine/Menthol (*Bkc) 18 Ea Lozenge PO 1 lozenge PRN PRN Administration Sore Throat Bupropion HCl 300 mg 07/26/24 09:00 07/27/24 08:25 Bupropion Hcl Xl (24 Hr) 150 Mg Tabcr PO 300 mg DAILY EMILE Administration Buspirone HCl 45 mg 07/26/24 09:00 07/27/24 08:24 Buspirone Hcl 5 Mg Tablet BY MOUTH 45 mg DAILY EMILE Administration Dextrose 12.5 gm 07/25/24 14:35 Dextrose 50% 25 Gm/50 Ml Syringe IV PUSH PRN PRN Hypoglycemia Protocol Enoxaparin Sodium 40 mg 07/25/24 09:00 07/27/24 08:24 Enoxaparin 40 Mg/0.4 Ml Syringe SUB-Q 40 mg DAILY EMILE Administration Famotidine 20 mg 07/24/24 21:00 07/27/24 20:48 Famotidine 20 Mg/2 Ml Vial IV PUSH 20 mg Q12HR EMILE Administration Glucagon 1 mg 07/25/24 14:35 Glucagon For Inj 1 Mg Vial IM PRN PRN Hypoglycemia Protocol Glucose 15 gm 07/25/24 14:35 Glucose Oral Gel 15 Gm Of Glucse In 37.5 Gm Tube PO PRN PRN Hypoglycemia Protocol Hydromorphone HCl 2 mg 07/24/24 20:38 07/25/24 06:10 Hydromorphone Hcl Inj (*Crx) 1 Mg/Ml Syr IV PUSH 2 mg Q2H PRN Administration Breakthrough Pain Rated 7-10 or NPO Hydromorphone HCl 1 mg 07/24/24 20:38 07/28/24 05:47 Hydromorphone Hcl Inj (*Crx) 1 Mg/Ml Syr IV PUSH 1 mg Q2H PRN Administration Breakthrough Pain Rated 4-6 or NPO Ibuprofen 800 mg in 200 mls @ 400 mls/hr 07/24/24 21:00 07/28/24 03:41 Caldolor 800 Mg/200 Ml IVPB Infused Q6H EMILE Infusion Dextrose 1,000 mls @ 50 mls/hr 07/25/24 14:35 Dextrose 10% IV CONT .Q20H PRN if PN is interrupted Multivitamins 1.25 ml/ 1,002.5 mls @ 70 mls/hr 07/25/24 14:35 07/28/24 01:41 Multivitamins 1.25 ml/ Amino IV CONT 70 mls/hr Acids/Electrolytes/Dextrose .[id number] EMILE Administration Protocol Fat Emulsion Intravenous 250 mls @ 20.833 mls/hr 07/25/24 14:35 07/28/24 01:37 Lipids 20% IVPB Infused Q24H EMILE Infusion Dextrose 1,000 mls @ 100 mls/hr 07/25/24 14:35 Dextrose 5% 1,000 Ml IVPB PRN PRN Hypoglycemia Protocol Potassium Chloride/Dextrose/Sod Cl 1,000 mls @ 80 mls/hr 07/27/24 06:50 07/27/24 20:49 Kcl 40 Meq/D5ns IV CONT 80 mls/hr .[id number] EMILE Administration Insulin Aspart 3 - 6 units 07/25/24 18:00 07/28/24 06:20 Insulin Aspart (*Bkc) 100 Units/Ml SUB-Q Not Given Q6HR EMILE Protocol Lorazepam 0.5 mg 07/25/24 19:49 07/28/24 00:15 Lorazepam Inj (*Crx) 2 Mg/Ml Vial IV PUSH 0.5 mg Q6H PRN Administration Anxiety Lorazepam 1 mg 07/25/24 22:42 Lorazepam Inj (*Crx) 2 Mg/Ml Vial IV PUSH Q2H PRN CIWA 8-15 Lorazepam 2 mg 07/25/24 22:42 Lorazepam Inj (*Crx) 2 Mg/Ml Vial IV PUSH Q2H PRN CIWA > 15 Naloxone HCl 0.1 mg 07/24/24 20:38 Naloxone Hcl 0.4 Mg/Ml Vial IV PUSH Q2M PRN Opiate Reversal Ondansetron HCl 4 mg 07/24/24 20:38 07/27/24 00:24 Ondansetron Inj 4 Mg/2 Ml Vial IV PUSH 4 mg Q4H PRN Administration Nausea And Vomiting Phenol 1 spray 07/27/24 04:00 07/27/24 20:55 Phenol/Sod Pheno [place] Mendez (*Bkc) MUCOUS MEM 1 spray PRN PRN Administration Sore Throat Sodium Chloride 10 ml 07/25/24 14:00 07/28/24 05:46 Central Line Flush IV PUSH 10 ml Q8HR EMILE Administration Sodium Chloride 10 ml 07/25/24 11:31 Central Line Flush IV PUSH PRN PRN with TPN bag changes Sodium Chloride 20 ml 07/25/24 11:31 Central Line Flush IV PUSH PRN PRN after blood draws Thiamine HCl 100 mg 07/26/24 09:00 07/27/24 08:25 Thiamine Hcl 200 Mg/2 Ml Vial IV PUSH 100 mg DAILY EMILE Administration Radiology Results: ITS Impressions Abdomen X-Ray 07/28/24 06:52 IMPRESSION: 1. Nasogastric tube in the stomach. 2. Nonspecific bowel gas pattern. 3. Mild bibasilar opacities which could represent atelectasis or pneumonia. Labs Labs: Laboratory Results - last 24 hr 07/27/24 07/27/24 07/27/24 11:36 17:30 23:55 WBC RBC Hgb Hct MCV MCH MCHC RDW Plt Count MPV Sodium Potassium Chloride Carbon Dioxide Anion Gap BUN Creatinine Estim Creat Clear Calc Estimated GFR Glucose POC Capillary Glucose 102 97 131 H Calcium Phosphorus 07/28/24 05:45 WBC 7.0 RBC 3.25 L Hgb 10.0 L Hct 30.3 L MCV 93.2 MCH 30.8 MCHC 33.0 RDW 12.1 Plt Count 334 MPV 9.7 Sodium 135 L Potassium 3.4 Chloride 105 Carbon Dioxide 31 H Anion Gap -1 L BUN 6 L D Creatinine 0.60 L Estim Creat Clear Calc 171 Estimated GFR > 60 Glucose 96 POC Capillary Glucose Calcium 8.1 L Phosphorus 3.9 Quality VTE Prophylaxis VTE prophylaxis: mechanical ordered
[2024-07-28] MEDS: SODIUM CHLORIDE 0.9% IV 1,000 ML 999 ML IV CONT (09:10)
[2024-07-28] MEDS: THIAMINE HCL 200 MG/2 ML VIAL 100 MG IV PUSH (09:11)
[2024-07-28] MEDS: ENOXAPARIN 40 MG/0.4 ML SYRINGE SUB-Q (09:11)
[2024-07-28] MEDS: FAMOTIDINE 20 MG/2 ML VIAL IV PUSH ×2 (09:11→21:03)
[2024-07-28] MEDS: ONDANSETRON INJ 4 MG/2 ML VIAL IV PUSH (09:22)
[2024-07-28] MEDS: busPIRone HCL 10 MG TABLET 30 MG BY MOUTH (10:24)
[2024-07-28] MEDS: buPROPion HCL XL (24 HR) 150 MG TABCR 300 MG PO (10:24)
--- NOTE | 2024-07-28 10:34 | P.PNGS_ITS ---
Progress Note: A&P Assessment and Plan (1) H/O lysis of adhesions: Code(s): Z98.890 - Other specified postprocedural states Status: Acute Assessment and Plan: No bowel sounds and no evidence of return of bowel function now on postop day 4. He continues to have a large amount of NG output-1700 cc yesterday and 2200 cc the day before. Continue nasogastric tube, NPO except meds, TPN while wait for return of bowel function. Open abdominal wound looks good. Will start silver gel dressings daily and p.r.n.. Retention sutures are intact and are no doubt contributing to his generalized abdominal pain. Supplement potassium and increase ambulation. Healing about as expected. (2) Obstruction of small intestine due to peritoneal adhesion: Code(s): K56.50 - Intestinal adhesions [bands], unspecified as to partial versus complete obstruction Status: Acute Assessment and Plan: Recurrent SBO, relieved with extensive adhesiolysis yesterday (3) Perioperative dehiscence of abdominal wound with evisceration: Qualifiers: Encounter type: subsequent encounter Qualified Code(s): T81.321D - Disruption or dehiscence of closure of internal operation (surgical) wound of abdominal wall muscle or fascia, subsequent encounter Code(s): T81.321A - Disruption or dehiscence of closure of internal operation (surgical) wound of abdominal wall muscle or fascia, initial encounter Status: Acute Assessment and Plan: Index laparotomy performed 07/06/2024. Patient experienced nausea and vomiting at home after discharge. Extensive vomiting from recurrent SBO likely the cause of the dehiscence and evisceration (4) Protein-calorie malnutrition, moderate: Code(s): E44.0 - Moderate protein-calorie malnutrition Status: Acute Assessment and Plan: Continue TPN but increase rate. Subjective Subjective Date/Time Seen: 07/28/24 10:34 Post Op day: 4 Patient reports: no new complaints, still having pain, voiding w/o difficulty, flatus, no bowel movement and afebrile Review of Systems Review of Systems: All systems reviewed & are unremarkable except as noted in HPI and below (HPI) Exam Const: General: cooperative, comfortable, no acute distress, alert, awake, tired appearing and thin Orientation/consciousness: patient oriented x3 and No confusion Resp: Effort & Inspection: normal respiratory effort Auscultation: clear to auscultation bilaterally Cardio: Rate: regular rate Rhythm: regular rhythm Heart sounds: no gallops, no murmurs and no rubs GI: Inspection: non-distended, incision (Nu gauze removed, retention sutures intact, wound bed pink, healing) and no visible herniation GI Palp: Yes Soft to palpation, Yes Tenderness to palpation present (GI) (Persistent diffuse tenderness), Yes Guarding due to palpation present (GI), No Hernia present and No Palpable mass present Auscultation: absent bowel sounds Neuro: General: patient oriented x3 and no focal motor deficits Extrem: General: no calf tenderness and no edema Psych: Affect: normal affect Insight: Good insight present (Psych) Judg ement: Good judgement present (Psych) Objective Data Vital Signs Vital Signs: Vital Signs - 24 hr 07/27/24 12:00 07/27/24 16:00 07/27/24 20:00 Temperature 36.8 C 35.9 C L 37.4 C Pulse Rate 114 H 110 H 124 H Respiratory Rate 18 18 18 Blood Pressure 120/76 134/80 131/90 Pulse Oximetry 98 97 95 Oxygen Delivery 07/27/24 20:00 07/27/24 20:00 07/28/24 00:00 Temperature Pulse Rate Respiratory Rate Blood Pressure 131/90 131/90 Pulse Oximetry Oxygen Delivery Room Air 07/28/24 00:00 07/28/24 04:00 07/28/24 04:00 Temperature 36.8 C 36.4 C L Pulse Rate 110 H 106 H Respiratory Rate 18 18 Blood Pressure 131/76 131/76 132/81 Pulse Oximetry 91 96 Oxygen Delivery 07/28/24 06:45 07/28/24 08:00 Temperature 36.4 C 36.7 C Pulse Rate 107 H 108 H Respiratory Rate 18 18 Blood Pressure 145/92 H 135/90 Pulse Oximetry 95 99 Oxygen Delivery Intake/Output Intake/Output: Intake & Output 07/25/24 07/26/24 07/27/24 07/28/24 23:59 23:59 23:59 23:59 Intake Total 2735 3051.4 3967.1 1452.5 Output Total 1540 3550 4340 1600 Balance 1195 -498.6 -372.9 -147.5 Meds/Results Medications: Active Medications Generic Name Dose Route Start Last Admin Trade Name Freq PRN Reason Stop Dose Admin Amitriptyline HCl 25 mg 07/25/24 21:00 07/27/24 21:34 Amitriptyline Hcl 25 Mg Tablet PO Not Given HS EMILE Benzocaine 1 lozenge 07/26/24 09:56 07/27/24 20:55 Benzocaine/Menthol (*Bkc) 18 Ea Lozenge PO 1 lozenge PRN PRN Administration Sore Throat Bupropion HCl 300 mg 07/26/24 09:00 07/28/24 10:24 Bupropion Hcl Xl (24 Hr) 150 Mg Tabcr PO 300 mg DAILY EMILE Administration Buspirone HCl 30 mg 07/28/24 10:20 07/28/24 10:24 Buspirone Hcl 10 Mg Tablet BY MOUTH 30 mg DAILY EMILE Administration Buspirone HCl 15 mg 07/28/24 21:00 Buspirone Hcl 5 Mg Tablet BY MOUTH HS EMILE Dextrose 12.5 gm 07/25/24 14:35 Dextrose 50% 25 Gm/50 Ml Syringe IV PUSH PRN PRN Hypoglycemia Protocol Enoxaparin Sodium 40 mg 07/25/24 09:00 07/28/24 09:11 Enoxaparin 40 Mg/0.4 Ml Syringe SUB-Q 40 mg DAILY EMILE Administration Famotidine 20 mg 07/24/24 21:00 07/28/24 09:11 Famotidine 20 Mg/2 Ml Vial IV PUSH 20 mg Q12HR EMILE Administration Glucagon 1 mg 07/25/24 14:35 Glucagon For Inj 1 Mg Vial IM PRN PRN Hypoglycemia Protocol Glucose 15 gm 07/25/24 14:35 Glucose Oral Gel 15 Gm Of Glucse In 37.5 Gm Tube PO PRN PRN Hypoglycemia Protocol Hydromorphone HCl 2 mg 07/24/24 20:38 07/25/24 06:10 Hydromorphone Hcl Inj (*Crx) 1 Mg/Ml Syr IV PUSH 2 mg Q2H PRN Administration Breakthrough Pain Rated 7-10 or NPO Hydromorphone HCl 1 mg 07/24/24 20:38 07/28/24 09:11 Hydromorphone Hcl Inj (*Crx) 1 Mg/Ml Syr IV PUSH 1 mg Q2H PRN Administration Breakthrough Pain Rated 4-6 or NPO Dextrose 1,000 mls @ 50 mls/hr 07/25/24 14:35 Dextrose 10% IV CONT .Q20H PRN if PN is interrupted Multivitamins 1.25 ml/ 1,002.5 mls @ 80 mls/hr 07/25/24 14:35 07/28/24 01:41 Multivitamins 1.25 ml/ Amino IV CONT 70 mls/hr Acids/Electrolytes/Dextrose .[id number] EMILE Administration Protocol Fat Emulsion Intravenous 250 mls @ 20.833 mls/hr 07/25/24 14:35 07/28/24 01:37 Lipids 20% IVPB Infused Q24H EMILE Infusion Dextrose 1,000 mls @ 100 mls/hr 07/25/24 14:35 Dextrose 5% 1,000 Ml IVPB PRN PRN Hypoglycemia Protocol Potassium Chloride/Dextrose/Sod Cl 1,000 mls @ 80 mls/hr 07/27/24 06:50 07/27/24 20:49 Kcl 40 Meq/D5ns IV CONT 80 mls/hr .[id number] EMILE Administration Potassium Chloride 100 mls @ 50 mls/hr 07/28/24 10:30 Kcl 20 Meq/Sw 100 Ml IVPB 07/28/24 12:29 ONCE ONE Ibuprofen 800 mg in 200 mls @ 400 mls/hr 07/28/24 10:33 Caldolor 800 Mg/200 Ml IVPB Q6H PRN Pain Rated 1-3 Insulin Aspart 3 - 6 units 07/25/24 18:00 07/28/24 06:20 Insulin Aspart (*Bkc) 100 Units/Ml SUB-Q Not Given Q6HR [facility] Protocol Lorazepam 0.5 mg 07/25/24 19:49 07/28/24 00:15 Lorazepam Inj (*Crx) 2 Mg/Ml Vial IV PUSH 0.5 mg Q6H PRN Administration Anxiety Lorazepam 1 mg 07/25/24 22:42 Lorazepam Inj (*Crx) 2 Mg/Ml Vial IV PUSH Q2H PRN CIWA 8-15 Lorazepam 2 mg 07/25/24 22:42 Lorazepam Inj (*Crx) 2 Mg/Ml Vial IV PUSH Q2H PRN CIWA > 15 Naloxone HCl 0.1 mg 07/24/24 20:38 Naloxone Hcl 0.4 Mg/Ml Vial IV PUSH Q2M PRN Opiate Reversal Ondansetron HCl 4 mg 07/24/24 20:38 07/28/24 09:22 Ondansetron Inj 4 Mg/2 Ml Vial IV PUSH 4 mg Q4H PRN Administration Nausea And Vomiting Phenol 1 spray 07/27/24 04:00 07/27/24 20:55 Phenol/Sod Pheno [place] (*Bkc) MUCOUS MEM 1 spray PRN PRN Administration Sore Throat Sodium Chloride 10 ml 07/25/24 14:00 07/28/24 05:46 Central Line Flush IV PUSH 10 ml Q8HR EMILE Administration Sodium Chloride 10 ml 07/25/24 11:31 Central Line Flush IV PUSH PRN PRN with TPN bag changes Sodium Chloride 20 ml 07/25/24 11:31 Central Line Flush IV PUSH PRN PRN after blood draws Thiamine HCl 100 mg 07/26/24 09:00 07/28/24 09:11 Thiamine Hcl 200 Mg/2 Ml Vial IV PUSH 100 mg DAILY EMILE Administration Radiology Results: ITS Impressions Abdomen X-Ray 07/28/24 06:52 IMPRESSION: 1. Nasogastric tube in the stomach. 2. Nonspecific bowel gas pattern. 3. Mild bibasilar opacities which could represent atelectasis or pneumonia. Feeding Tube Manipulation 07/28/24 09:51 IMPRESSION: 1: NG tube tip in the stomach. Labs Labs: Laboratory Results - last 24 hr 07/27/24 07/27/24 07/27/24 11:36 17:30 23:55 WBC RBC Hgb Hct MCV MCH MCHC RDW Plt Count MPV Sodium Potassium Chloride Carbon Dioxide Anion Gap BUN Creatinine Estim Creat Clear Calc Estimated GFR Glucose POC Capillary Glucose 102 97 131 H Calcium Phosphorus 07/28/24 05:45 WBC 7.0 RBC 3.25 L Hgb 10.0 L Hct 30.3 L MCV 93.2 MCH 30.8 MCHC 33.0 RDW 12.1 Plt Count 334 MPV 9.7 Sodium 135 L Potassium 3.4 Chloride 105 Carbon Dioxide 31 H Anion Gap -1 L BUN 6 L D Creatinine 0.60 L Estim Creat Clear Calc 171 Estimated GFR > 60 Glucose 96 POC Capillary Glucose Calcium 8.1 L Phosphorus 3.9 Imaging Attestation: I personally reviewed and interpreted this imaging study as christineo ws: (Plain film of the abdomen) My impression: Dilated small and large bowel, nasogastric tube in good position Radiologist's impression: Nonspecific bowel gas pattern, NG tube in the stomach
[2024-07-28] MEDS: KCL 20 MEQ/SW 100 ML 100 ML 50 MEQ IVPB (11:18)
[2024-07-28] MEDS: AMINO ACIDS 5%/D15W/E-LYTES/CA 1,000 ML with MULTIVITAMINS-12 INJ VIAL 1 1.25 ML, MULTI... 80 ML IV CONT (12:31)
--- NOTE | 2024-07-28 12:34 | PCNFU ---
Nutrition Follow-Up Complete: Altered GI function as related to abd wound dehiscence as evidenced by NPO. Goal: Meet estimated nutritional needs. Will continue current goal. Pt current nutrition is TPN at 80 ml/hr. Last recorded weight is 86.3 kg, stable Bowel Motility: No BM Labs Reviewed: BUN 6, NA 135, Hct 30.3, Hgb 10.0 Meds Noted: Clinimix E at 80 ml/hr with 250 ml of 20% Lipid Emulsion, Thiamine Skin: WNL Additional Notes:Patient remains on NGT. Spoke with nursing No BM, starting to hear bowel sounds. TPN being increased today to 80 ml/hr. TPN providing 1863 kcal/96 gm protein total volume 24 hour 2170 ml. TPN meeting 72% kcal needs at 30 kcal/kg and 100% protein needs at 1.0-1.2 gm/kg. Agree with diet orders at this time. Will monitor weight, labs, skin, diet orders, meds every 3 days.
[2024-07-28 12:41] LABS: Glucose Point of Care 111 mg/dl (65-105)
[2024-07-28] MEDS: KCL 40 MEQ/D5/0.9% SOD CHL 1,000 ML 80 ML IV CONT (13:18)
[2024-07-28] MEDS: FAT EMULSIONS IV 20% 250 ML 20.8 ML IVPB (14:02)
[2024-07-28 14:11] LABS: Triglycerides 135 mg/dL (<150)
--- NOTE | 2024-07-28 15:31 | PC.NURSE ---
Patient found holding NG in his hand and it was displaced 5cm. NG adjusted this AM as well. Patient continued to be educated regarding safety of NG and importance to leave in place.
[2024-07-28] MEDS: AMITRIPTYLINE HCL 25 MG TABLET PO (21:09)
[2024-07-28] MEDS: busPIRone HCL 5 MG TABLET 15 MG BY MOUTH (21:11)
[2024-07-28 21:24] LABS: Glucose Point of Care 128 mg/dl (65-105)
[2024-07-29] VITALS (7 sets, daily range): BP systolic 126–140; BP diastolic 84–98; PULSE 86–98; RESP 12–18; TEMP 35.6–36.7; O2SAT 96–100
[2024-07-29 00:17] LABS: Glucose Point of Care 107 mg/dl (65-105)
[2024-07-29] MEDS: KCL 40 MEQ/D5/0.9% SOD CHL 1,000 ML 80 ML IV CONT ×2 (02:12→17:17)
--- NOTE | 2024-07-29 02:28 | PC.NURSE ---
Patient has pulled on NG tubing causing 65cm to decrease to 63cm insertion from nare. Suction is on intermittent and denies any pain through NG tubing. Canister has greater than 500ml green fluid. Educated on benefits of NG tube and purpose for suctioning in correct placement. Patient is stable. Will continue to monitor.
[2024-07-29] MEDS: AMINO ACIDS 5%/D15W/E-LYTES/CA 1,000 ML with MULTIVITAMINS-12 INJ VIAL 1 1.25 ML, MULTI... 80 ML IV CONT ×2 (03:05→14:27)
[2024-07-29] MEDS: HYDROmorphone HCL INJ (*CRX) 1 MG/ML SYR IV PUSH ×9 (03:11→22:17)
[2024-07-29 06:05] LABS: Hematocrit 28.7 % (42.0-52.0); Hemoglobin 9.6 g/dL (14.0-18.0); Mean Corpuscular HGB Conc 33.4 g/dl (32-36); Mean Corpuscular Hemoglobin 30.8 pg (26-34); Mean Platelet Volume 9.5 fl (7.4-10.4); Platelet Count Result 323 k/mm3 (150-375); Red Blood Count 3.12 M/mm3 (4.6-6.20); Red Cell Distribution Width 12.2 % (11.5-14.5); White Blood Count 7.3 K/mm3 (4.5-10.0)
[2024-07-29 06:21] LABS: Anion Gap 1 mmol/L (4-12); Blood Urea Nitrogen 8 mg/dL (9-20); Calcium 8.4 mg/dL (8.4-10.2); Carbon Dioxide 31 mmol/L (22-30); Chloride 105 mmol/L (98-107); Estimated CRCL calculation 171 ml/min; Estimated Glomerular Filt Rate > 60; Glucose 122 mg/dL (65-110); Phosphorus 4.3 mg/dL (2.5-4.5); Potassium 3.5 mmol/L (3.4-5.0); Sodium 137 mmol/L (137-145)
[2024-07-29 06:25] LABS: Glucose Point of Care 128 mg/dl (65-105)
[2024-07-29] MEDS: IBUPROFEN IV 800 MG/200 ML 800 MG/200 ML BAG 400 MG IVPB ×2 (06:38→16:36)
--- NOTE | 2024-07-29 07:30 | P.PNIM_ITS ---
Progress Note: A&P Assessment and Plan (1) Perioperative dehiscence of abdominal wound with evisceration: Qualifiers: Encounter type: subsequent encounter Qualified Code(s): T81.321D - Disruption or dehiscence of closure of internal operation (surgical) wound of abdominal wall muscle or fascia, subsequent encounter Code(s): T81.321A - Disruption or dehiscence of closure of internal operation (surgical) wound of abdominal wall muscle or fascia, initial encounter Status: Acute Assessment and Plan: Postoperative day 5 status post repair of fascial dehiscence with extensive adhesiolysis for small-bowel obstruction and repair enterotomy x2 on 07/[address] Mccann. Wound care, pain control, and DVT prophylaxis deferred to primary service. (2) Abdominal adhesions: Code(s): K66.0 - Peritoneal adhesions (postprocedural) (postinfection) Status: Acute Assessment and Plan: Plan is as detailed above. 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: Code(s): K56.50 - Intestinal adhesions [bands], unspecified as to partial versus complete obstruction Status: Acute Assessment and Plan: As above. (4) Tachycardia: Code(s): R00.0 - Tachycardia, unspecified Status: Acute Assessment and Plan: Patient has been steadily tachycardic since surgery. Possibly related to pain vs anxiety, however will give him a fluid bolus and see if there is a response. Patient denies chest pain and palpitations. - HR remains stable - Monitor (5) Gastroesophageal reflux disease: Code(s): K21.9 - Gastro-esophageal reflux disease without esophagitis Status: Acute Assessment and Plan: Currently on famotidine 20 mg IV b.i.d. (6) Depression with anxiety: Code(s): F41.8 - Other specified anxiety disorders Status: Acute Assessment and Plan: Resume medications following return of bowel function. P.r.n. lorazepam available as needed. (7) History of alcohol withdrawal delirium: Code(s): Z86.59 - Personal history of other mental and behavioral disorders Status: Acute Assessment and Plan: He had alcohol withdrawal symptoms with his most recent hospitalization and states he has not had any significant alcohol since his discharge a little over week ago. Will initiate CIWA protocol Thiamine 100 mg IV daily Continue to monitor closely. Remains stable. Denies any withdrawal symptoms. (8) Protein-calorie malnutrition, moderate: Code(s): E44.0 - Moderate protein-calorie malnutrition Status: Acute Assessment and Plan: Continue TPN Time Spent With Patient Time with patient: 25 - 35 minutes Subjective Date/time seen: 07/29/24 07:30 Interval history: Patient is pleasant lying comfortably in bed. He still has not had a bowel movement but continue to pass flatus and notes that he feels as though he will have a BM soon. His NG tube had shifted and required repositioning, xr confirmed replacement. Patient states that his pain is doing well on current regimen. He has not been up and walking much but plans to try more today. He denies any withdrawal like symptoms. He has no other complaints denying chest pain, shortness of breath and palpitations. Tachycardia has resolved since the fluids yesterday. Hospitalist group will sign off at this time, if there are any questions/concerns please reconsult. Review of Systems Review of Systems: All systems reviewed & are unremarkable except as noted in HPI and below Exam Narrative: AF HR 87 RR 18 SpO2 100 BP 140/93 General: well nourished, well-developed male in no acute respiratory distress who is nontoxic appearing, lying semi recumbent in bed. HEENT: Normocephalic. Atraumatic. Extraocular movement intact. Sclera clear and anicteric. NG tube in place. No facial asymmetry. Chest: Lungs are clear to auscultation bilaterally. No wheezes or crackles. CV: Heart was regular rate and rhythm. S1/S2. No murmurs, gallops, or rubs. Abd: Abdomen was soft. Dressing in place is clean/dry/intact. Tender to palpation. Hypoactive bowel sounds. No organomegaly or masses. Neuro: Patient is alert. Speech is clear. Objective Data Vital Signs Vital Signs: Vital Signs - 24 hr 07/28/24 08:00 07/28/24 08:57 07/28/24 12:00 Temperature 98.0 F 97.1 F L Pulse Rate 108 H 105 H Respiratory Rate 18 18 Blood Pressure 135/90 132/85 Pulse Oximetry 99 98 Oxygen Delivery Room Air 07/28/24 16:00 07/28/24 20:00 07/28/24 21:03 Temperature 98.1 F 98 F Pulse Rate 108 H 109 H Respiratory Rate 18 16 Blood Pressure 142/87 H 142/82 H Pulse Oximetry 99 96 Oxygen Delivery Room Air 07/29/24 00:00 07/29/24 04:00 Temperature 97.8 F 97 F L Pulse Rate 94 87 Respiratory Rate 16 18 Blood Pressure 126/84 131/87 Pulse Oximetry 97 99 Oxygen Delivery Intake/Output Intake/Output: Intake & Output 07/26/24 07/27/24 07/28/24 07/29/24 23:59 23:59 23:59 23:59 Intake Total 3051.4 3967.1 4710.8 2352.5 Output Total 3550 4340 4100 1500 Balance -498.6 -372.9 610.8 852.5 Meds/Results Medications: Active Medications Generic Name Dose Route Start Last Admin Trade Name Freq PRN Reason Stop Dose Admin Amitriptyline HCl 25 mg 07/25/24 21:00 07/28/24 21:09 Amitriptyline Hcl 25 Mg Tablet PO 25 mg HS EMILE Administration Benzocaine 1 lozenge 07/26/24 09:56 07/27/24 20:55 Benzocaine/Menthol (*Bkc) 18 Ea Lozenge PO 1 lozenge PRN PRN Administration Sore Throat Bupropion HCl 300 mg 07/26/24 09:00 07/28/24 10:24 Bupropion Hcl Xl (24 Hr) 150 Mg Tabcr PO 300 mg DAILY EMILE Administration Buspirone HCl 30 mg 07/28/24 10:20 07/28/24 10:24 Buspirone Hcl 10 Mg Tablet BY MOUTH 30 mg DAILY EMILE Administration Buspirone HCl 15 mg 07/28/24 21:00 07/28/24 21:11 Buspirone Hcl 5 Mg Tablet BY MOUTH 15 mg HS EMILE Administration Dextrose 12.5 gm 07/25/24 14:35 Dextrose 50% 25 Gm/50 Ml Syringe IV PUSH PRN PRN Hypoglycemia Protocol Enoxaparin Sodium 40 mg 07/25/24 09:00 07/28/24 09:11 Enoxaparin 40 Mg/0.4 Ml Syringe SUB-Q 40 mg DAILY EMILE Administration Famotidine 20 mg 07/24/24 21:00 07/28/24 21:03 Famotidine 20 Mg/2 Ml Vial IV PUSH 20 mg Q12HR EMILE Administration Glucagon 1 mg 07/25/24 14:35 Glucagon For Inj 1 Mg Vial IM PRN PRN Hypoglycemia Protocol Glucose 15 gm 07/25/24 14:35 Glucose Oral Gel 15 Gm Of Glucse In 37.5 Gm Tube PO PRN PRN Hypoglycemia Protocol Hydromorphone HCl 2 mg 07/24/24 20:38 07/25/24 06:10 Hydromorphone Hcl Inj (*Crx) 1 Mg/Ml Syr IV PUSH 2 mg Q2H PRN Administration Breakthrough Pain Rated 7-10 or NPO Hydromorphone HCl 1 mg 07/24/24 20:38 07/29/24 05:29 Hydromorphone Hcl Inj (*Crx) 1 Mg/Ml Syr IV PUSH 1 mg Q2H PRN Administration Breakthrough Pain Rated 4-6 or NPO Dextrose 1,000 mls @ 50 mls/hr 07/25/24 14:35 Dextrose 10% IV CONT .Q20H PRN if PN is interrupted Multivitamins 1.25 ml/ 1,002.5 mls @ 80 mls/hr 07/25/24 14:35 07/29/24 03:05 Multivitamins 1.25 ml/ Amino IV CONT 80 mls/hr Acids/Electrolytes/Dextrose .[id number] EMILE Administration Protocol Fat Emulsion Intravenous 250 mls @ 20.833 mls/hr 07/25/24 14:35 07/29/24 05:15 Lipids 20% IVPB Infused Q24H EMILE Infusion Dextrose 1,000 mls @ 100 mls/hr 07/25/24 14:35 Dextrose 5% 1,000 Ml IVPB PRN PRN Hypoglycemia Protocol Potassium Chloride/Dextrose/Sod Cl 1,000 mls @ 80 mls/hr 07/27/24 06:50 07/29/24 02:12 Kcl 40 Meq/D5ns IV CONT 80 mls/hr .[id number] EMILE Administration Ibuprofen 800 mg in 200 mls @ 400 mls/hr 07/28/24 10:33 07/29/24 06:38 Caldolor 800 Mg/200 Ml IVPB 400 mls/hr Q6H PRN Administration Pain Rated 1-3 Insulin Aspart 3 - 6 units 07/25/24 18:00 07/29/24 06:25 Insulin Aspart (*Bkc) 100 Units/Ml SUB-Q Not Given Q6HR EMILE Protocol Lorazepam 0.5 mg 07/25/24 19:49 07/28/24 23:26 Lorazepam Inj (*Crx) 2 Mg/Ml Vial IV PUSH 0.5 mg Q6H PRN Administration Anxiety Lorazepam 1 mg 07/25/24 22:42 Lorazepam Inj (*Crx) 2 Mg/Ml Vial IV PUSH Q2H PRN CIWA 8-15 Lorazepam 2 mg 07/25/24 22:42 Lorazepam Inj (*Crx) 2 Mg/Ml Vial IV PUSH Q2H PRN CIWA > 15 Naloxone HCl 0.1 mg 07/24/24 20:38 Naloxone Hcl 0.4 Mg/Ml Vial IV PUSH Q2M PRN Opiate Reversal Ondansetron HCl 4 mg 07/24/24 20:38 07/28/24 09:22 Ondansetron Inj 4 Mg/2 Ml Vial IV PUSH 4 mg Q4H PRN Administration Nausea And Vomiting Phenol 1 spray 07/27/24 04:00 07/27/24 20:55 Phenol/Sod Pheno [place]endez (*Bkc) MUCOUS MEM 1 spray PRN PRN Administration Sore Throat Sodium Chloride 10 ml 07/25/24 14:00 07/28/24 22:38 Central Line Flush IV PUSH 10 ml Q8HR EMILE Administration Sodium Chloride 10 ml 07/25/24 11:31 Central Line Flush IV PUSH PRN PRN with TPN bag changes Sodium Chloride 20 ml 07/25/24 11:31 Central Line Flush IV PUSH PRN PRN after blood draws Thiamine HCl 100 mg 07/26/24 09:00 07/28/24 09:11 Thiamine Hcl 200 Mg/2 Ml Vial IV PUSH 100 mg DAILY EMILE Administration Radiology Results: ITS Impressions Feeding Tube Manipulation 07/28/24 09:51 IMPRESSION: 1: NG tube tip in the stomach. Abdomen Fluoroscopy 07/28/24 15:49 IMPRESSION: 1. Nasogastric tube tip in the stomach. 2. Dilated small bowel, likely adynamic ileus. 3. Airspace opacities at the lung bases, left worse than right, consistent with atelectasis versus pneumonia. Abdomen X-Ray 07/28/24 16:31 IMPRESSION: 1. Nasogastric tube tip in the stomach. 2. Dilated small bowel, likely adynamic ileus. 3. Airspace opacities at the lung bases, left worse than right, consistent with atelectasis versus pneumonia. Labs Labs: Laboratory Results - last 24 hr 07/28/24 07/28/24 07/28/24 05:45 12:29 21:01 WBC RBC Hgb Hct MCV MCH MCHC RDW Plt Count MPV Sodium Potassium Chloride Carbon Dioxide Anion Gap BUN Creatinine Estim Creat Clear Calc Estimated GFR Glucose POC Capillary Glucose 111 H 128 H Calcium Phosphorus Triglycerides 135 07/29/24 07/29/24 07/29/24 00:13 05:55 05:56 WBC 7.3 RBC 3.12 L Hgb 9.6 L Hct 28.7 L MCV 92.0 MCH 30.8 MCHC 33.4 RDW 12.2 Plt Count 323 MPV 9.5 Sodium 137 Potassium 3.5 Chloride 105 Carbon Dioxide 31 H Anion Gap 1 L BUN 8 L Creatinine 0.60 L Estim Creat Clear Calc 171 Estimated GFR > 60 Glucose 122 H POC Capillary Glucose 107 H Calcium 8.4 Phosphorus 4.3 Triglycerides 07/29/24 06:22 WBC RBC Hgb Hct MCV MCH MCHC RDW Plt Count MPV Sodium Potassium Chloride Carbon Dioxide Anion Gap BUN Creatinine Estim Creat Clear Calc Estimated GFR Glucose POC Capillary Glucose 128 H Calcium Phosphorus Triglycerides Quality VTE Prophylaxis VTE prophylaxis: mechanical ordered
[2024-07-29] MEDS: CENTRAL LINE FLUSH 10 ML IV PUSH ×2 (08:02→14:28)
[2024-07-29] MEDS: buPROPion HCL XL (24 HR) 150 MG TABCR 300 MG PO (08:03)
[2024-07-29] MEDS: busPIRone HCL 10 MG TABLET 30 MG BY MOUTH (08:03)
[2024-07-29] MEDS: ENOXAPARIN 40 MG/0.4 ML SYRINGE SUB-Q (10:17)
[2024-07-29] MEDS: THIAMINE HCL 200 MG/2 ML VIAL 100 MG IV PUSH (10:17)
[2024-07-29] MEDS: FAMOTIDINE 20 MG/2 ML VIAL IV PUSH ×2 (10:17→20:20)
[2024-07-29 12:41] LABS: Glucose Point of Care 106 mg/dl (65-105)
--- NOTE | 2024-07-29 13:50 | PC.NURSE ---
While hospitalist rounding in room, this RN noted that the patient's NG became dislodged and at 30cm. Suction turned off and NG advanced back to 65cm. Patient frequently educated regarding NG safety. Radiology report confirmed NG placement and was placed back to suction.
[2024-07-29] MEDS: FAT EMULSIONS IV 20% 250 ML 20.8 ML IVPB (14:28)
[2024-07-29 18:33] LABS: Glucose Point of Care 134 mg/dl (65-105)
--- NOTE | 2024-07-29 19:02 | WPDPN ---
Progress Note: A&P Assessment and Plan (1) Obstruction of small intestine due to peritoneal adhesion: Code(s): K56.50 - Intestinal adhesions [bands], unspecified as to partial versus complete obstruction Status: Acute Assessment and Plan: Resolved after extensive adhesiolysis and Dr. Mccann postop day 5. He still has postoperative ileus. Continue nasogastric tube decompression and nutritional support with TPN. Up out of bed to chair. DVT prophylaxis with Lovenox and GI prophylaxis with Pepcid. SCDs while in bed. Supportive management. (2) Perioperative dehiscence of abdominal wound with evisceration: Qualifiers: Encounter type: subsequent encounter Qualified Code(s): T81.321D - Disruption or dehiscence of closure of internal operation (surgical) wound of abdominal wall muscle or fascia, subsequent encounter Code(s): T81.321A - Disruption or dehiscence of closure of internal operation (surgical) wound of abdominal wall muscle or fascia, initial encounter Status: Acute Assessment and Plan: Fascial dehiscence addressed with re-exploration and closure of the abdomen with retention sutures. Midline incision is open and packed. Retention sutures in place. No evidence of recurrent fascial dehiscence. (3) Protein-calorie malnutrition, moderate: Code(s): E44.0 - Moderate protein-calorie malnutrition Status: Acute Assessment and Plan: Continue TPN. Will repeat and renewed today. Start using his GI tract once his postoperative ileus resolves. Subjective Date/time seen: 07/29/24 19:02 Interval history: Patient is now postoperative day 5 after re-exploration for recurrent small-bowel obstruction and closure of abdominal dehiscence. He still has a postoperative ileus. Nasogastric tube is in place and he is on TPN. White blood cell count is normal. Electrolytes are okay as well. He states he is having a small amount of flatus but certainly no bowel movement yet. Exam GI: Other: Abdomen is mildly distended. Midline incision is open and packed. No purulent drainage. Some retention sutures and bolsters in place. No evidence of recurrent dehiscence. Objective Data Vital Signs Vital Signs: Vital Signs - 24 hr 07/28/24 20:00 07/28/24 21:03 07/29/24 00:00 Temperature 36.6 C 36.6 C Pulse Rate 109 H 94 Respiratory Rate 16 16 Blood Pressure 142/82 H 126/84 Pulse Oximetry 96 97 Oxygen Delivery Room Air 07/29/24 04:00 07/29/24 07:55 07/29/24 08:00 Temperature 36.1 C L 35.6 C L Pulse Rate 87 86 Respiratory Rate 18 18 Blood Pressure 131/87 135/86 Pulse Oximetry 99 100 Oxygen Delivery Room Air 07/29/24 09:06 07/29/24 12:00 07/29/24 16:00 Temperature 36.3 C L 36.7 C Pulse Rate 87 98 Respiratory Rate 18 18 Blood Pressure 140/93 H 137/91 H Pulse Oximetry 96 100 100 Oxygen Delivery Room Air Intake/Output Intake/Output: Intake & Output 07/26/24 07/27/24 07/28/24 07/29/24 23:59 23:59 23:59 23:59 Intake Total 3051.4 3967.1 4710.8 4661.8 Output Total 3550 4340 4100 4450 Balance -498.6 -372.9 610.8 211.8 Meds/Results Medications: Active Medications Generic Name Dose Route Start Last Admin Trade Name Freq PRN Reason Stop Dose Admin Amitriptyline HCl 25 mg 07/25/24 21:00 07/28/24 21:09 Amitriptyline Hcl 25 Mg Tablet PO 25 mg HS EMILE Administration Benzocaine 1 lozenge 07/26/24 09:56 07/27/24 20:55 Benzocaine/Menthol (*Bkc) 18 Ea Lozenge PO 1 lozenge PRN PRN Administration Sore Throat Bupropion HCl 300 mg 07/26/24 09:00 07/29/24 08:03 Bupropion Hcl Xl (24 Hr) 150 Mg Tabcr PO 300 mg DAILY EMILE Administration Buspirone HCl 30 mg 07/28/24 10:20 07/29/24 08:03 Buspirone Hcl 10 Mg Tablet BY MOUTH 30 mg DAILY EMILE Administration Buspirone HCl 15 mg 07/28/24 21:00 07/28/24 21:11 Buspirone Hcl 5 Mg Tablet BY MOUTH 15 mg HS EMILE Administration Dextrose 12.5 gm 07/25/24 14:35 Dextrose 50% 25 Gm/50 Ml Syringe IV PUSH PRN PRN Hypoglycemia Protocol Enoxaparin Sodium 40 mg 07/25/24 09:00 07/29/24 10:17 Enoxaparin 40 Mg/0.4 Ml Syringe SUB-Q 40 mg DAILY EMILE Administration Famotidine 20 mg 07/24/24 21:00 07/29/24 10:17 Famotidine 20 Mg/2 Ml Vial IV PUSH 20 mg Q12HR EMILE Administration Glucagon 1 mg 07/25/24 14:35 Glucagon For Inj 1 Mg Vial IM PRN PRN Hypoglycemia Protocol Glucose 15 gm 07/25/24 14:35 Glucose Oral Gel 15 Gm Of Glucse In 37.5 Gm Tube PO PRN PRN Hypoglycemia Protocol Hydromorphone HCl 2 mg 07/24/24 20:38 07/25/24 06:10 Hydromorphone Hcl Inj (*Crx) 1 Mg/Ml Syr IV PUSH 2 mg Q2H PRN Administration Breakthrough Pain Rated 7-10 or NPO Hydromorphone HCl 1 mg 07/24/24 20:38 07/29/24 17:18 Hydromorphone Hcl Inj (*Crx) 1 Mg/Ml Syr IV PUSH 1 mg Q2H PRN Administration Breakthrough Pain Rated 4-6 or NPO Dextrose 1,000 mls @ 50 mls/hr 07/25/24 14:35 Dextrose 10% IV CONT .Q20H PRN if PN is interrupted Multivitamins 1.25 ml/ 1,002.5 mls @ 80 mls/hr 07/25/24 14:35 07/29/24 14:27 Multivitamins 1.25 ml/ Amino IV CONT 80 mls/hr Acids/Electrolytes/Dextrose .[id number] EMILE Administration Protocol Fat Emulsion Intravenous 250 mls @ 20.833 mls/hr 07/25/24 14:35 07/29/24 14:28 Lipids 20% IVPB 20.8 mls/hr Q24H EMILE Administration Dextrose 1,000 mls @ 100 mls/hr 07/25/24 14:35 Dextrose 5% 1,000 Ml IVPB PRN PRN Hypoglycemia Protocol Potassium Chloride/Dextrose/Sod Cl 1,000 mls @ 80 mls/hr 07/27/24 06:50 07/29/24 17:17 Kcl 40 Meq/D5ns IV CONT 80 mls/hr .[id number] EMILE Administration Ibuprofen 800 mg in 200 mls @ 400 mls/hr 07/28/24 10:33 07/29/24 17:06 Caldolor 800 Mg/200 Ml IVPB Infused Q6H PRN Infusion Pain Rated 1-3 Insulin Aspart 3 - 6 units 07/25/24 18:00 07/29/24 18:34 Insulin Aspart (*Bkc) 100 Units/Ml SUB-Q Not Given Q6HR EMILE Protocol Lorazepam 0.5 mg 07/25/24 19:49 07/28/24 23:26 Lorazepam Inj (*Crx) 2 Mg/Ml Vial IV PUSH 0.5 mg Q6H PRN Administration Anxiety Lorazepam 1 mg 07/25/24 22:42 Lorazepam Inj (*Crx) 2 Mg/Ml Vial IV PUSH Q2H PRN CIWA 8-15 Lorazepam 2 mg 07/25/24 22:42 Lorazepam Inj (*Crx) 2 Mg/Ml Vial IV PUSH Q2H PRN CIWA > 15 Naloxone HCl 0.1 mg 07/24/24 20:38 Naloxone Hcl 0.4 Mg/Ml Vial IV PUSH Q2M PRN Opiate Reversal Ondansetron HCl 4 mg 07/24/24 20:38 07/28/24 09:22 Ondansetron Inj 4 Mg/2 Ml Vial IV PUSH 4 mg Q4H PRN Administration Nausea And Vomiting Phenol 1 spray 07/27/24 04:00 07/27/24 20:55 Phenol/Sod Pheno [place] Mendez (*Bkc) MUCOUS MEM 1 spray PRN PRN Administration Sore Throat Sodium Chloride 10 ml 07/25/24 14:00 07/29/24 14:28 Central Line Flush IV PUSH 10 ml Q8HR EMILE Administration Sodium Chloride 10 ml 07/25/24 11:31 Central Line Flush IV PUSH PRN PRN with TPN bag changes Sodium Chloride 20 ml 07/25/24 11:31 Central Line Flush IV PUSH PRN PRN after blood draws Thiamine HCl 100 mg 07/26/24 09:00 07/29/24 10:17 Thiamine Hcl 200 Mg/2 Ml Vial IV PUSH 100 mg DAILY EMILE Administration Radiology Results: ITS Impressions Feeding Tube Manipulation 07/28/24 09:51 IMPRESSION: 1: NG tube tip in the stomach. Abdomen Fluoroscopy 07/28/24 15:49 IMPRESSION: 1. Nasogastric tube tip in the stomach. 2. Dilated small bowel, likely adynamic ileus. 3. Airspace opacities at the lung bases, left worse than right, consistent with atelectasis versus pneumonia. Abdomen X-Ray 07/29/24 11:49 IMPRESSION: 1. Nasogastric tube in the stomach. 2. Multiple gas-filled but not frankly dilated loops of bowel and favor ileus over obstruction. 3. Opacities at the bilateral lung bases which could represent atelectasis and/or pneumonia. Labs Labs: Laboratory Results - last 24 hr 07/28/24 07/29/24 07/29/24 21:01 00:13 05:55 WBC 7.3 RBC 3.12 L Hgb 9.6 L Hct 28.7 L MCV 92.0 MCH 30.8 MCHC 33.4 RDW 12.2 Plt Count 323 MPV 9.5 Sodium Potassium Chloride Carbon Dioxide Anion Gap BUN Creatinine Estim Creat Clear Calc Estimated GFR Glucose POC Capillary Glucose 128 H 107 H Calcium Phosphorus 07/29/24 07/29/24 07/29/24 05:56 06:22 12:26 WBC RBC Hgb Hct MCV MCH MCHC RDW Plt Count MPV Sodium 137 Potassium 3.5 Chloride 105 Carbon Dioxide 31 H Anion Gap 1 L BUN 8 L Creatinine 0.60 L Estim Creat Clear Calc 171 Estimated GFR > 60 Glucose 122 H POC Capillary Glucose 128 H 106 H Calcium 8.4 Phosphorus 4.3 07/29/24 18:29 WBC RBC Hgb Hct MCV MCH MCHC RDW Plt Count MPV Sodium Potassium Chloride Carbon Dioxide Anion Gap BUN Creatinine Estim Creat Clear Calc Estimated GFR Glucose POC Capillary Glucose 134 H Calcium Phosphorus
[2024-07-29] MEDS: busPIRone HCL 5 MG TABLET 15 MG BY MOUTH (20:20)
[2024-07-29] MEDS: AMITRIPTYLINE HCL 25 MG TABLET PO (20:20)
[2024-07-29 21:14] LABS: Glucose Point of Care 119 mg/dl (65-105)
[2024-07-30] VITALS: BP 136/91; PULSE 83; RESP 18; TEMP 36.9; O2SAT 100
[2024-07-30 00:04] LABS: Glucose Point of Care 111 mg/dl (65-105)
[2024-07-30] MEDS: HYDROmorphone HCL INJ (*CRX) 1 MG/ML SYR IV PUSH ×10 (00:25→23:09)
[2024-07-30] MEDS: CENTRAL LINE FLUSH 10 ML IV PUSH ×4 (00:32→20:57)
[2024-07-30] MEDS: LORazepam INJ (*CRX) 2 MG/ML VIAL 0.5 MG IV PUSH ×2 (02:35→23:06)
[2024-07-30] MEDS: AMINO ACIDS 5%/D15W/E-LYTES/CA 1,000 ML with MULTIVITAMINS-12 INJ VIAL 1 1.25 ML, MULTI... 80 ML IV CONT ×2 (03:03→14:57)
[2024-07-30 04:00] VITALS: BP 134/87; PULSE 90; RESP 18; TEMP 36.4; O2SAT 98
[2024-07-30] MEDS: KCL 40 MEQ/D5/0.9% SOD CHL 1,000 ML 80 ML IV CONT ×2 (05:59→23:04)
[2024-07-30 06:24] LABS: Glucose Point of Care 123 mg/dl (65-105)
[2024-07-30 07:00] LABS: Hemoglobin 10.3 g/dL (14.0-18.0); Mean Corpuscular HGB Conc 33.2 g/dl (32-36); Mean Corpuscular Hemoglobin 30.2 pg (26-34); Mean Corpuscular Volume 90.9 fl (80-100); Mean Platelet Volume 9.5 fl (7.4-10.4); Platelet Count Result 343 k/mm3 (150-375); Red Blood Count 3.41 M/mm3 (4.6-6.20); Red Cell Distribution Width 12.1 % (11.5-14.5); White Blood Count 9.2 K/mm3 (4.5-10.0)
[2024-07-30 07:12] LABS: Anion Gap 5 mmol/L (4-12); Blood Urea Nitrogen 10 mg/dL (9-20); Calcium 8.9 mg/dL (8.4-10.2); Carbon Dioxide 30 mmol/L (22-30); Chloride 101 mmol/L (98-107); Estimated CRCL calculation 171 ml/min; Estimated Glomerular Filt Rate > 60; Glucose 115 mg/dL (65-110); Phosphorus 4.7 mg/dL (2.5-4.5); Potassium 3.8 mmol/L (3.4-5.0); Sodium 136 mmol/L (137-145)
[2024-07-30] MEDS: FAMOTIDINE 20 MG/2 ML VIAL IV PUSH ×2 (08:56→20:55)
[2024-07-30] MEDS: busPIRone HCL 10 MG TABLET 30 MG BY MOUTH (08:56)
[2024-07-30] MEDS: THIAMINE HCL 200 MG/2 ML VIAL 100 MG IV PUSH (08:56)
[2024-07-30] MEDS: buPROPion HCL XL (24 HR) 150 MG TABCR 300 MG PO (08:56)
[2024-07-30] MEDS: ENOXAPARIN 40 MG/0.4 ML SYRINGE SUB-Q (08:57)
[2024-07-30 11:08] VITALS: BP 145/94; PULSE 82; RESP 18; TEMP 36.8; O2SAT 100
[2024-07-30 12:06] LABS: Glucose Point of Care 93 mg/dl (65-105)
--- NOTE | 2024-07-30 12:31 | P.PN_ITS ---
Progress Note: A&P Assessment and Plan (1) Protein-calorie malnutrition, moderate: Code(s): E44.0 - Moderate protein-calorie malnutrition Status: Acute Assessment and Plan: Continue TPN for now. Postoperative ileus is not resolved and so he remains with NG tube and NPO. (2) Obstruction of small intestine due to peritoneal adhesion: Code(s): K56.50 - Intestinal adhesions [bands], unspecified as to partial versus complete obstruction Status: Acute Assessment and Plan: Continue to decompress GI tract with nasogastric tube to suction. Supportive management. Encourage the patient to walk in the hallways. Continue TPN for now. Subjective Date/time seen: 07/30/24 12:31 Interval history: Patient looks a little better today. Seems to have a little more energy. Wants to get up and walk in the hallways. No flatus yet. No bowel movement. Nasogastric tube in place. Output is still fairly bilious. Pain control for his abdominal incision is adequate. White blood count remains normal at 9200. Exam GI: Other: Abdomen is soft and mildly distended. Midline incision is packed without redness. The minor serous drainage. Retention sutures in place. No evidence of dehiscence of the fascia. Objective Data Vital Signs Vital Signs: Vital Signs - 24 hr 07/29/24 16:00 07/29/24 20:00 07/29/24 20:20 Temperature 36.7 C 36.6 C Pulse Rate 98 89 Respiratory Rate 18 12 Blood Pressure 137/91 H 138/98 H Pulse Oximetry 100 98 Oxygen Delivery Room Air 07/30/24 00:00 07/30/24 04:00 07/30/24 08:55 Temperature 36.9 C 36.4 C L Pulse Rate 83 90 Respiratory Rate 18 18 Blood Pressure 136/91 H 134/87 Pulse Oximetry 100 98 Oxygen Delivery Room Air 07/30/24 11:08 Temperature 36.8 C Pulse Rate 82 Respiratory Rate 18 Blood Pressure 145/94 H Pulse Oximetry 100 Oxygen Delivery Intake/Output Intake/Output: Intake & Output 07/27/24 07/28/24 07/29/24 07/30/24 23:59 23:59 23:59 23:59 Intake Total 3967.1 4710.8 4661.8 2252.5 Output Total 4340 4100 5250 1550 Balance -372.9 610.8 -588.2 702.5 Meds/Results Medications: Active Medications Generic Name Dose Route Start Last Admin Trade Name Freq PRN Reason Stop Dose Admin Amitriptyline HCl 25 mg 07/25/24 21:00 07/29/24 20:20 Amitriptyline Hcl 25 Mg Tablet PO 25 mg HS EMILE Administration Benzocaine 1 lozenge 07/26/24 09:56 07/27/24 20:55 Benzocaine/Menthol (*Bkc) 18 Ea Lozenge PO 1 lozenge PRN PRN Administration Sore Throat Bupropion HCl 300 mg 07/26/24 09:00 07/30/24 08:56 Bupropion Hcl Xl (24 Hr) 150 Mg Tabcr PO 300 mg DAILY EMILE Administration Buspirone HCl 30 mg 07/28/24 10:20 07/30/24 08:56 Buspirone Hcl 10 Mg Tablet BY MOUTH 30 mg DAILY EMILE Administration Buspirone HCl 15 mg 07/28/24 21:00 07/29/24 20:20 Buspirone Hcl 5 Mg Tablet BY MOUTH 15 mg HS EMILE Administration Dextrose 12.5 gm 07/25/24 14:35 Dextrose 50% 25 Gm/50 Ml Syringe IV PUSH PRN PRN Hypoglycemia Protocol Enoxaparin Sodium 40 mg 07/25/24 09:00 07/30/24 08:57 Enoxaparin 40 Mg/0.4 Ml Syringe SUB-Q 40 mg DAILY EMILE Administration Famotidine 20 mg 07/24/24 21:00 07/30/24 08:56 Famotidine 20 Mg/2 Ml Vial IV PUSH 20 mg Q12HR EMILE Administration Glucagon 1 mg 07/25/24 14:35 Glucagon For Inj 1 Mg Vial IM PRN PRN Hypoglycemia Protocol Glucose 15 gm 07/25/24 14:35 Glucose Oral Gel 15 Gm Of Glucse In 37.5 Gm Tube PO PRN PRN Hypoglycemia Protocol Hydromorphone HCl 2 mg 07/24/24 20:38 07/25/24 06:10 Hydromorphone Hcl Inj (*Crx) 1 Mg/Ml Syr IV PUSH 2 mg Q2H PRN Administration Breakthrough Pain Rated 7-10 or NPO Hydromorphone HCl 1 mg 07/24/24 20:38 07/30/24 10:26 Hydromorphone Hcl Inj (*Crx) 1 Mg/Ml Syr IV PUSH 1 mg Q2H PRN Administration Breakthrough Pain Rated 4-6 or NPO Dextrose 1,000 mls @ 50 mls/hr 07/25/24 14:35 Dextrose 10% IV CONT .Q20H PRN if PN is interrupted Multivitamins 1.25 ml/ 1,002.5 mls @ 80 mls/hr 07/25/24 14:35 07/30/24 03:03 Multivitamins 1.25 ml/ Amino IV CONT 80 mls/hr Acids/Electrolytes/Dextrose .[id number] EMILE Administration Protocol Fat Emulsion Intravenous 250 mls @ 20.833 mls/hr 07/25/24 14:35 07/30/24 02:30 Lipids 20% IVPB Infused Q24H EMILE Infusion Dextrose 1,000 mls @ 100 mls/hr 07/25/24 14:35 Dextrose 5% 1,000 Ml IVPB PRN PRN Hypoglycemia Protocol Potassium Chloride/Dextrose/Sod Cl 1,000 mls @ 80 mls/hr 07/27/24 06:50 07/30/24 05:59 Kcl 40 Meq/D5ns IV CONT 80 mls/hr .[id number] EMILE Administration Ibuprofen 800 mg in 200 mls @ 400 mls/hr 07/28/24 10:33 07/29/24 17:06 Caldolor 800 Mg/200 Ml IVPB Infused Q6H PRN Infusion Pain Rated 1-3 Insulin Aspart 3 - 6 units 07/25/24 18:00 07/30/24 06:25 Insulin Aspart (*Bkc) 100 Units/Ml SUB-Q Not Given Q6HR [facility] Protocol Lorazepam 0.5 mg 07/25/24 19:49 07/30/24 02:35 Lorazepam Inj (*Crx) 2 Mg/Ml Vial IV PUSH 0.5 mg Q6H PRN Administration Anxiety Lorazepam 1 mg 07/25/24 22:42 Lorazepam Inj (*Crx) 2 Mg/Ml Vial IV PUSH Q2H PRN CIWA 8-15 Lorazepam 2 mg 07/25/24 22:42 Lorazepam Inj (*Crx) 2 Mg/Ml Vial IV PUSH Q2H PRN CIWA > 15 Naloxone HCl 0.1 mg 07/24/24 20:38 Naloxone Hcl 0.4 Mg/Ml Vial IV PUSH Q2M PRN Opiate Reversal Ondansetron HCl 4 mg 07/24/24 20:38 07/28/24 09:22 Ondansetron Inj 4 Mg/2 Ml Vial IV PUSH 4 mg Q4H PRN Administration Nausea And Vomiting Phenol 1 spray 07/27/24 04:00 07/27/24 20:55 Phenol/Sod Pheno [place] Mendez (*Bkc) MUCOUS MEM 1 spray PRN PRN Administration Sore Throat Sodium Chloride 10 ml 07/25/24 14:00 07/30/24 06:11 Central Line Flush IV PUSH 10 ml Q8HR EMILE Administration Sodium Chloride 10 ml 07/25/24 11:31 Central Line Flush IV PUSH PRN PRN with TPN bag changes Sodium Chloride 20 ml 07/25/24 11:31 Central Line Flush IV PUSH PRN PRN after blood draws Thiamine HCl 100 mg 07/26/24 09:00 07/30/24 08:56 Thiamine Hcl 200 Mg/2 Ml Vial IV PUSH 100 mg DAILY EMILE Administration Radiology Results: ITS Impressions Feeding Tube Manipulation 07/28/24 09:51 IMPRESSION: 1: NG tube tip in the stomach. Abdomen Fluoroscopy 07/28/24 15:49 IMPRESSION: 1. Nasogastric tube tip in the stomach. 2. Dilated small bowel, likely adynamic ileus. 3. Airspace opacities at the lung bases, left worse than right, consistent with atelectasis versus pneumonia. Abdomen X-Ray 07/29/24 11:49 IMPRESSION: 1. Nasogastric tube in the stomach. 2. Multiple gas-filled but not frankly dilated loops of bowel and favor ileus over obstruction. 3. Opacities at the bilateral lung bases which could represent atelectasis and/or pneumonia. Labs Labs: Laboratory Results - last 24 hr 07/29/24 07/29/24 07/29/24 12:26 18:29 20:27 WBC RBC Hgb Hct MCV MCH MCHC RDW Plt Count MPV Sodium Potassium Chloride Carbon Dioxide Anion Gap BUN Creatinine Estim Creat Clear Calc Estimated GFR Glucose POC Capillary Glucose 106 H 134 H 119 H Calcium Phosphorus 07/29/24 07/30/24 07/30/24 23:57 06:21 06:53 WBC 9.2 RBC 3.41 L Hgb 10.3 L Hct 31.0 L MCV 90.9 MCH 30.2 MCHC 33.2 RDW 12.1 Plt Count 343 MPV 9.5 Sodium 136 L Potassium 3.8 Chloride 101 Carbon Dioxide 30 Anion Gap 5 BUN 10 Creatinine 0.60 L Estim Creat Clear Calc 171 Estimated GFR > 60 Glucose 115 H POC Capillary Glucose 111 H 123 H Calcium 8.9 Phosphorus 4.7 H 07/30/24 11:59 WBC RBC Hgb Hct MCV MCH MCHC RDW Plt Count MPV Sodium Potassium Chloride Carbon Dioxide Anion Gap BUN Creatinine Estim Creat Clear Calc Estimated GFR Glucose POC Capillary Glucose 93 Calcium Phosphorus
[2024-07-30 14:08] LABS: Triglycerides 163 mg/dL (<150)
[2024-07-30 14:57] VITALS: BP 141/88; PULSE 93; RESP 18; TEMP 36.8; O2SAT 100
[2024-07-30] MEDS: FAT EMULSIONS IV 20% 250 ML 20.8 ML IVPB (14:57)
[2024-07-30] MEDS: IBUPROFEN IV 800 MG/200 ML 800 MG/200 ML BAG 400 MG IVPB (16:54)
[2024-07-30 18:08] LABS: Glucose Point of Care 118 mg/dl (65-105)
[2024-07-30 20:00] VITALS: BP 140/82; PULSE 87; RESP 18; TEMP 36.1; O2SAT 98
[2024-07-30] MEDS: AMITRIPTYLINE HCL 25 MG TABLET PO (20:55)
[2024-07-30] MEDS: busPIRone HCL 5 MG TABLET 15 MG BY MOUTH (20:56)
[2024-07-31] VITALS: BP 131/88; PULSE 99; RESP 16; TEMP 36.3; O2SAT 98
[2024-07-31 00:15] LABS: Glucose Point of Care 130 mg/dl (65-105)
[2024-07-31] MEDS: HYDROmorphone HCL INJ (*CRX) 1 MG/ML SYR IV PUSH ×9 (02:37→22:07)
[2024-07-31 04:00] VITALS: BP 151/95; PULSE 94; RESP 16; TEMP 36.3; O2SAT 98
[2024-07-31] MEDS: CENTRAL LINE FLUSH 10 ML IV PUSH ×3 (07:01→20:52)
[2024-07-31 07:02] LABS: Basophils Absolute Auto 0.1 K/mm3 (0.0-0.1); Basophils Percent Auto 0.9 % (0.2-1.2); Eosinophils Absolute Auto 0.5 K/mm3 (0-0.3); Eosinophils Percent Auto 3.9 % (0-4.4); Hematocrit 37.3 % (42.0-52.0); Immature Granulocyte Absolute 0.41 K/mm3 (0.00-0.031); Immature Granulocyte Percent A 3.5 % (0-0.5); Lymphocytes Absolute Auto 0.88 K/mm3 (0.9-3.2); Lymphocytes Percent Auto 7.6 % (18.3-44.2); Mean Corpuscular HGB Conc 32.2 g/dl (32-36); Mean Corpuscular Hemoglobin 29.8 pg (26-34); Mean Corpuscular Volume 92.6 fl (80-100); Mean Platelet Volume 9.5 fl (7.4-10.4); Monocytes Absolute Auto 0.9 K/mm3 (0.1-0.6); Monocytes Percent Auto 7.3 % (2.6-8.5); Neutrophils Absolute Auto 8.9 K/mm3 (1.3-6.7); Neutrophils Percent Auto 76.8 % (45.5-73.1); Platelet Count Result 377 k/mm3 (150-375); Red Blood Count 4.03 M/mm3 (4.6-6.20); White Blood Count 11.6 K/mm3 (4.5-10.0)
[2024-07-31 07:12] LABS: Prothrombin Time 13.6 Seconds (11.1-14.7)
[2024-07-31 07:13] LABS: Partial Thromboplastin Time 35.3 Seconds (22.3-36.8)
[2024-07-31 07:22] LABS: Alanine Aminotransferase 13 U/L (6-50); Albumin Level 3.5 g/dL (3.5-5.1); Alkaline Phosphatase 77 U/L (38-126); Anion Gap 6 mmol/L (4-12); Aspartate Amino Transferase 19 U/L (17-59); Bilirubin,Total 0.3 mg/dL (0.2-1.3); Blood Urea Nitrogen 15 mg/dL (9-20); Calcium 9.6 mg/dL (8.4-10.2); Carbon Dioxide 33 mmol/L (22-30); Chloride 99 mmol/L (98-107); Estimated CRCL calculation 149 ml/min; Estimated Glomerular Filt Rate > 60; Glucose 146 mg/dL (65-110); Phosphorus 4.9 mg/dL (2.5-4.5); Potassium 4.3 mmol/L (3.4-5.0); Sodium 138 mmol/L (137-145)
[2024-07-31 07:29] LABS: Transferrin 155 mg/dL (206-381)
[2024-07-31] MEDS: buPROPion HCL XL (24 HR) 150 MG TABCR 300 MG PO (08:06)
[2024-07-31] MEDS: ENOXAPARIN 40 MG/0.4 ML SYRINGE SUB-Q (08:06)
[2024-07-31] MEDS: busPIRone HCL 10 MG TABLET 30 MG BY MOUTH (08:06)
[2024-07-31] MEDS: FAMOTIDINE 20 MG/2 ML VIAL IV PUSH ×2 (08:07→20:51)
[2024-07-31] MEDS: THIAMINE HCL 200 MG/2 ML VIAL 100 MG IV PUSH (08:08)
[2024-07-31 08:18] VITALS: BP 130/88; PULSE 105; RESP 16; TEMP 36.9; O2SAT 99
[2024-07-31] MEDS: AMINO ACIDS 5%/D15W/E-LYTES/CA 1,000 ML with MULTIVITAMINS-12 INJ VIAL 1 1.25 ML, MULTI... 80 ML IV CONT (11:14)
[2024-07-31 12:00] LABS: Add Urine Microscopic? NO; Appearance Urine Clear (Clear); Bilirubin Urine Negative (Negative); Blood Urine Negative (Negative); Color Urine Yellow (Yellow); Glucose Urine UA Negative (Negative); Ketones Urine Negative (Negative); Leukocyte Esterase Ur Negative LEU/UL (Negative); Nitrate Urine Negative (Negative); Protein Urine Negative (Negative); Specific Grav Ur 1.026 (1.001-1.035); Urobilinogen Urine 0.2 mg/dL (<2.0)
[2024-07-31 12:10] VITALS: BP 142/90; PULSE 101; RESP 16; TEMP 36.9; O2SAT 98
[2024-07-31 12:26] LABS: Glucose Point of Care 95 mg/dl (65-105)
--- NOTE | 2024-07-31 12:55 | P.PNGS_ITS ---
Progress Note: A&P Assessment and Plan (1) H/O lysis of adhesions: Code(s): Z98.890 - Other specified postprocedural states Status: Acute Assessment and Plan: Postop day 7 status post difficult adhesiolysis and repair of fascial dehiscence with evisceration. Patient has excellent bowel sounds today. His nasogastric tube had to be advanced as it was less than 30 cm at his near ease. NG tube still having high outputs. Patient had increase in his white blood cell count today. CT scan ordered and shows multiple pelvic fluid collections. I discussed the CT with Dr. Mccarthy. The patient is only 1 week status post laparotomy which changes the situation as far as small amounts of air in the abdominal cavity. The pelvic fluid collection is somewhat suspicious. I discussed this with the patient. We will go ahead with percutaneous drainage under CT guidance and pigtail catheter drain. Abdominal wound has somewhat purulent appearing fluid which is probably some of the silver gel. Will change to dry gauze packing. These dressing changes will be done b.i.d.. (2) Obstruction of small intestine due to peritoneal adhesion: Code(s): K56.50 - Intestinal adhesions [bands], unspecified as to partial versus complete obstruction Status: Acute Assessment and Plan: Still has high NG output. Bowel sounds are excellent. Seems that bowel function is starting to return. (3) Pelvic abscess in male: Code(s): K65.1 - Peritoneal abscess Status: Acute Assessment and Plan: Could just be loculated fluid postop but will proceed with drainage pelvic abscess. Discussed with Dr. Mccarthy. (4) Perioperative dehiscence of abdominal wound with evisceration: Qualifiers: Encounter type: subsequent encounter Qualified Code(s): T81.321D - Disruption or dehiscence of closure of internal operation (surgical) wound of abdominal wall muscle or fascia, subsequent encounter Code(s): T81.321A - Disruption or dehiscence of closure of internal operation (surgical) wound of abdominal wall muscle or fascia, initial encounter Status: Acute Assessment and Plan: No evidence of recurrent dehiscence. (5) Protein-calorie malnutrition, moderate: Code(s): E44.0 - Moderate protein-calorie malnutrition Status: Acute Assessment and Plan: Continue TPN. Subjective Subjective Date/Time Seen: 07/31/24 12:55 Post Op day: #7 Patient reports: feels better, pain is less (Mostly has sore throat from NG tube), voiding w/o difficulty, flatus (Passing more flatus), bowel movement (Small BM) and afebrile Exam Const: General: comfortable, no acute distress, alert and awake Nutritional Appearance: thin Orientation/consciousness: patient oriented x3 GI: Inspection: incision (Wound bed with vargas-brown fluid, able to wipe most of this away.) and other (Retention sutures in place, fascial closure intact.) GI Palp: Yes Soft to palpation, Yes Tenderness to palpation present (GI) (Diffusely tender but mostly at wound), No Guarding due to palpation present (GI) and No Rebound tenderness present Auscultation: normal bowel sounds Neuro: General: patient oriented x3 and no focal motor deficits Extrem: General: no calf tenderness and no edema Psych: Affect: normal affect Insight: Good insight present (Psych) Judgement: Good judgement present (Psych) Objective Data Vital Signs Vital Signs: Vital Signs - 24 hr 07/30/24 14:57 07/30/24 20:00 07/30/24 20:00 Temperature 36.8 C 36.1 C L Pulse Rate 93 87 87 Respiratory Rate 18 18 18 Blood Pressure 141/88 H 140/82 Pulse Oximetry 100 98 98 Oxygen Delivery Room Air 07/31/24 00:00 07/31/24 04:00 07/31/24 08:00 Temperature 36.3 C L 36.3 C L Pulse Rate 99 94 Respiratory Rate 16 16 Blood Pressure 131/88 151/95 H Pulse Oximetry 98 98 Oxygen Delivery Room Air 07/31/24 08:18 07/31/24 12:10 Temperature 36.9 C 36.9 C Pulse Rate 105 H 101 H Respiratory Rate 16 16 Blood Pressure 130/88 142/90 H Pulse Oximetry 99 98 Oxygen Delivery Intake/Output Intake/Output: Intake & Output 07/28/24 07/29/24 07/30/24 07/31/24 23:59 23:59 23:59 23:59 Intake Total 4710.8 4661.8 4404.5 1452.5 Output Total 4100 5250 5150 1450 Balance 610.8 -588.2 -745.5 2.5 Meds/Results Medications: Active Medications Generic Name Dose Route Start Last Admin Trade Name Freq PRN Reason Stop Dose Admin Alteplase, Recombinant 2 mg 07/31/24 11:55 Alteplase 2 Mg Vial (Cathflo) IV PUSH ONCE PRN Line Occlusion Amitriptyline HCl 25 mg 07/25/24 21:00 07/30/24 20:55 Amitriptyline Hcl 25 Mg Tablet PO 25 mg HS EMILE Administration Benzocaine 1 lozenge 07/26/24 09:56 07/27/24 20:55 Benzocaine/Menthol (*Bkc) 18 Ea Lozenge PO 1 lozenge PRN PRN Administration Sore Throat Bupropion HCl 300 mg 07/26/24 09:00 07/31/24 08:06 Bupropion Hcl Xl (24 Hr) 150 Mg Tabcr PO 300 mg DAILY EMILE Administration Buspirone HCl 30 mg 07/28/24 10:20 07/31/24 08:06 Buspirone Hcl 10 Mg Tablet BY MOUTH 30 mg DAILY EMILE Administration Buspirone HCl 15 mg 07/28/24 21:00 07/30/24 20:56 Buspirone Hcl 5 Mg Tablet BY MOUTH 15 mg HS EMILE Administration Dextrose 12.5 gm 07/25/24 14:35 Dextrose 50% 25 Gm/50 Ml Syringe IV PUSH PRN PRN Hypoglycemia Protocol Enoxaparin Sodium 40 mg 07/25/24 09:00 07/31/24 08:06 Enoxaparin 40 Mg/0.4 Ml Syringe SUB-Q 40 mg DAILY EMILE Administration Famotidine 20 mg 07/24/24 21:00 07/31/24 08:07 Famotidine 20 Mg/2 Ml Vial IV PUSH 20 mg Q12HR EMILE Administration Glucagon 1 mg 07/25/24 14:35 Glucagon For Inj 1 Mg Vial IM PRN PRN Hypoglycemia Protocol Glucose 15 gm 07/25/24 14:35 Glucose Oral Gel 15 Gm Of Glucse In 37.5 Gm Tube PO PRN PRN Hypoglycemia Protocol Hydromorphone HCl 2 mg 07/24/24 20:38 07/25/24 06:10 Hydromorphone Hcl Inj (*Crx) 1 Mg/Ml Syr IV PUSH 2 mg Q2H PRN Administration Breakthrough Pain Rated 7-10 or NPO Hydromorphone HCl 1 mg 07/24/24 20:38 07/31/24 11:22 Hydromorphone Hcl Inj (*Crx) 1 Mg/Ml Syr IV PUSH 1 mg Q2H PRN Administration Breakthrough Pain Rated 4-6 or NPO Dextrose 1,000 mls @ 50 mls/hr 07/25/24 14:35 Dextrose 10% IV CONT .Q20H PRN if PN is interrupted Multivitamins 1.25 ml/ 1,002.5 mls @ 80 mls/hr 07/25/24 14:35 07/31/24 11:14 Multivitamins 1.25 ml/ Amino IV CONT 80 mls/hr Acids/Electrolytes/Dextrose .[id number] EMILE Administration Protocol Fat Emulsion Intravenous 250 mls @ 20.833 mls/hr 07/25/24 14:35 07/31/24 11:10 Lipids 20% IVPB Infused Q24H EMILE Infusion Dextrose 1,000 mls @ 100 mls/hr 07/25/24 14:35 Dextrose 5% 1,000 Ml IVPB PRN PRN Hypoglycemia Protocol Potassium Chloride/Dextrose/Sod Cl 1,000 mls @ 80 mls/hr 07/27/24 06:50 07/30/24 23:04 Kcl 40 Meq/D5ns IV CONT 80 mls/hr .[id number] EMILE Administration Ibuprofen 800 mg in 200 mls @ 400 mls/hr 07/28/24 10:33 07/30/24 17:24 Caldolor 800 Mg/200 Ml IVPB Infused Q6H PRN Infusion Pain Rated 1-3 Insulin Aspart 3 - 6 units 07/25/24 18:00 07/31/24 06:52 Insulin Aspart (*Bkc) 100 Units/Ml SUB-Q Not Given Q6HR [facility] Protocol Lorazepam 0.5 mg 07/25/24 19:49 07/30/24 23:06 Lorazepam Inj (*Crx) 2 Mg/Ml Vial IV PUSH 0.5 mg Q6H PRN Administration Anxiety Lorazepam 1 mg 07/25/24 22:42 Lorazepam Inj (*Crx) 2 Mg/Ml Vial IV PUSH Q2H PRN CIWA 8-15 Lorazepam 2 mg 07/25/24 22:42 Lorazepam Inj (*Crx) 2 Mg/Ml Vial IV PUSH Q2H PRN CIWA > 15 Naloxone HCl 0.1 mg 07/24/24 20:38 Naloxone Hcl 0.4 Mg/Ml Vial IV PUSH Q2M PRN Opiate Reversal Ondansetron HCl 4 mg 07/24/24 20:38 07/28/24 09:22 Ondansetron Inj 4 Mg/2 Ml Vial IV PUSH 4 mg Q4H PRN Administration Nausea And Vomiting Phenol 1 spray 07/27/24 04:00 07/27/24 20:55 Phenol/Sod Pheno [place] Mendez (*Bkc) MUCOUS MEM 1 spray PRN PRN Administration Sore Throat Sodium Chloride 10 ml 07/25/24 14:00 07/31/24 07:01 Central Line Flush IV PUSH 10 ml Q8HR EMILE Administration Sodium Chloride 10 ml 07/25/24 11:31 Central Line Flush IV PUSH PRN PRN with TPN bag changes Sodium Chloride 20 ml 07/25/24 11:31 Central Line Flush IV PUSH PRN PRN after blood draws Thiamine HCl 100 mg 07/26/24 09:00 07/31/24 08:08 Thiamine Hcl 200 Mg/2 Ml Vial IV PUSH 100 mg DAILY EMILE Administration Radiology Results: ITS Impressions Feeding Tube Manipulation 07/28/24 09:51 IMPRESSION: 1: NG tube tip in the stomach. Abdomen Fluoroscopy 07/28/24 15:49 IMPRESSION: 1. Nasogastric tube tip in the stomach. 2. Dilated small bowel, likely adynamic ileus. 3. Airspace opacities at the lung bases, left worse than right, consistent with atelectasis versus pneumonia. Abdomen/Pelvis CT 07/31/24 10:04 IMPRESSION: 1. Postoperative changes in the abdomen and pelvis with a couple likely small bowel anastomoses. 2. Significant decrease in the previously seen wall thickening of the small bowel with a few mildly dilated loops of small bowel without a discrete transition point and would favor ileus over obstruction. 3. Few scattered foci of free intraperineal gas along with several new loculated fluid collections in the abdomen and pelvis suspicious for abscesses. The persistence of free gas approximately 3 weeks post surgery suggests possible residual bowel perforation or anastomotic breakdown. Could consider repeat CT with water-soluble oral contrast material. 4. Significant improvement in likely resolution of the prior pneumonia in the bilateral lower lobes with atelectasis with volume loss in the bilateral lower lobes. Residual pneumonia in the collapsed portion of the lungs cannot be optimally excluded. 5. Resolution of the prior small right pleural effusion and significant decrease in size of a now very small left pleural effusion. 6. Cardiomegaly. Abdomen X-Ray 07/31/24 12:30 IMPRESSION: 1. Nasogastric tube in the stomach. 2. Nonspecific bowel gas pattern and favor ileus over obstruction. Labs Labs: Laboratory Results - last 24 hr 07/30/24 07/30/24 07/31/24 06:44 18:03 00:10 WBC RBC Hgb Hct MCV MCH MCHC RDW Plt Count MPV Immature Gran % (Auto) Neut % (Auto) Lymph % (Auto) [place] % (Auto) Eos % (Auto) Baso % (Auto) Lymph # (Auto) [place] # (Auto) Eos # (Auto) Baso # (Auto) Abs Immat Gran (auto) Absolute Neuts (auto) Absolute Nucleated RBC Nucleated RBC % PT INR APTT Sodium Potassium Chloride Carbon Dioxide Anion Gap BUN Creatinine Estim Creat Clear Calc Estimated GFR Glucose POC Capillary Glucose 118 H 130 H Calcium Phosphorus Magnesium Transferrin Total Bilirubin AST ALT Alkaline Phosphatase Total Protein Albumin Triglycerides 163 H Urine Color Urine Appearance Urine pH Ur Specific [place] Urine Protein Urine Glucose (UA) Urine Ketones Ur Blood (Man) Urine Nitrate Urine Bilirubin Urine Urobilinogen Leukocyte Esterase Rfl 07/31/24 07/31/24 07/31/24 06:45 11:46 12:12 WBC 11.6 H RBC 4.03 L Hgb 12.0 L Hct 37.3 L MCV 92.6 MCH 29.8 MCHC 32.2 RDW 12.0 Plt Count 377 H MPV 9.5 Immature Gran % (Auto) 3.5 H Neut % (Auto) 76.8 H Lymph % (Auto) 7.6 L [place] % (Auto) 7.3 Eos % (Auto) 3.9 Baso % (Auto) 0.9 Lymph # (Auto) 0.88 L [place] # (Auto) 0.9 H Eos # (Auto) 0.5 H Baso # (Auto) 0.1 Abs Immat Gran (auto) 0.41 H Absolute Neuts (auto) 8.9 H Absolute Nucleated RBC 0.000 Nucleated RBC % 0.0 PT 13.6 INR 1.0 APTT 35.3 Sodium 138 Potassium 4.3 Chloride 99 Carbon Dioxide 33 H Anion Gap 6 BUN 15 D Creatinine 0.70 Estim Creat Clear Calc 149 Estimated GFR > 60 Glucose 146 H POC Capillary Glucose 95 Calcium 9.6 Phosphorus 4.9 H Magnesium 2.0 Transferrin 155 L Total Bilirubin 0.3 AST 19 ALT 13 Alkaline Phosphatase 77 Total Protein 7.0 Albumin 3.5 Triglycerides Urine Color Yellow Urine Appearance Clear Urine pH 7.0 Ur Specific [place] 1.026 Urine Protein Negative Urine Glucose (UA) Negative Urine Ketones Negative Ur Blood (Man) Negative Urine Nitrate Negative Urine Bilirubin Negative Urine Urobilinogen 0.2 Leukocyte Esterase Rfl Negative Imaging Attestation: I personally reviewed and interpreted this imaging study as follows: (CT scan abdomen and pelvis today) My impression: Large pelvic fluid collection suspicious for abscess posterior to urinary bladder Radiologist's impression: Multiple abscesses largest is behind urinary bladder. I discussed this with Dr. Mccarthy.
[2024-07-31] MEDS: ALTEPLASE 2 MG VIAL (CATHFLO) IV PUSH ×2 (13:21→16:47)
[2024-07-31] MEDS: ONDANSETRON INJ 4 MG/2 ML VIAL IV PUSH (16:39)
[2024-07-31] MEDS: FAT EMULSIONS IV 20% 250 ML 20.8 ML IVPB (16:42)
[2024-07-31 17:00] VITALS: BP 131/89; PULSE 96; RESP 17; TEMP 36.3; O2SAT 97
[2024-07-31 18:35] LABS: Glucose Point of Care 144 mg/dl (65-105)
[2024-07-31] MEDS: busPIRone HCL 5 MG TABLET 15 MG BY MOUTH (20:51)
[2024-07-31] MEDS: AMITRIPTYLINE HCL 25 MG TABLET PO (20:51)
[2024-07-31 21:02] VITALS: BP 133/84; PULSE 90; RESP 14; TEMP 36.6; O2SAT 98
[2024-07-31] MEDS: KCL 40 MEQ/D5/0.9% SOD CHL 1,000 ML 80 ML IV CONT (21:28)
[2024-07-31] MEDS: LORazepam INJ (*CRX) 2 MG/ML VIAL 0.5 MG IV PUSH (23:29)
[2024-08-01] VITALS (21 sets, daily range): BP systolic 119–143; BP diastolic 79–97; PULSE 81–103; RESP 15–21; TEMP 36.4–36.8; O2SAT 97–100
[2024-08-01 00:31] LABS: Glucose Point of Care 124 mg/dl (65-105)
[2024-08-01] MEDS: HYDROmorphone HCL INJ (*CRX) 1 MG/ML SYR IV PUSH ×5 (03:13→21:15)
[2024-08-01 06:23] LABS: Basophils Absolute Auto 0.1 K/mm3 (0.0-0.1); Basophils Percent Auto 0.6 % (0.2-1.2); Eosinophils Absolute Auto 0.7 K/mm3 (0-0.3); Eosinophils Percent Auto 6.9 % (0-4.4); Hematocrit 34.6 % (42.0-52.0); Hemoglobin 11.6 g/dL (14.0-18.0); Immature Granulocyte Percent A 4.6 % (0-0.5); Lymphocytes Absolute Auto 1.29 K/mm3 (0.9-3.2); Lymphocytes Percent Auto 11.9 % (18.3-44.2); Mean Corpuscular HGB Conc 33.5 g/dl (32-36); Mean Corpuscular Hemoglobin 30.7 pg (26-34); Mean Corpuscular Volume 91.5 fl (80-100); Mean Platelet Volume 9.6 fl (7.4-10.4); Monocytes Absolute Auto 1.1 K/mm3 (0.1-0.6); Monocytes Percent Auto 9.8 % (2.6-8.5); Neutrophils Absolute Auto 7.2 K/mm3 (1.3-6.7); Neutrophils Percent Auto 66.2 % (45.5-73.1); Platelet Count Result 358 k/mm3 (150-375); Red Blood Count 3.78 M/mm3 (4.6-6.20); Red Cell Distribution Width 12.1 % (11.5-14.5); White Blood Count 10.8 K/mm3 (4.5-10.0)
[2024-08-01] MEDS: AMINO ACIDS 5%/D15W/E-LYTES/CA 1,000 ML with MULTIVITAMINS-12 INJ VIAL 1 1.25 ML, MULTI... 80 ML IV CONT ×2 (06:25→20:59)
[2024-08-01 06:32] LABS: Anion Gap 5 mmol/L (4-12); Blood Urea Nitrogen 17 mg/dL (9-20); Calcium 9.2 mg/dL (8.4-10.2); Carbon Dioxide 30 mmol/L (22-30); Chloride 102 mmol/L (98-107); Estimated CRCL calculation 149 ml/min; Estimated Glomerular Filt Rate > 60; Glucose 122 mg/dL (65-110); Phosphorus 4.1 mg/dL (2.5-4.5); Potassium 4.3 mmol/L (3.4-5.0); Sodium 137 mmol/L (137-145)
[2024-08-01 06:59] LABS: Glucose Point of Care 118 mg/dl (65-105)
[2024-08-01] MEDS: ENOXAPARIN 40 MG/0.4 ML SYRINGE SUB-Q (08:28)
[2024-08-01] MEDS: busPIRone HCL 10 MG TABLET 30 MG BY MOUTH (08:28)
[2024-08-01] MEDS: buPROPion HCL XL (24 HR) 150 MG TABCR 300 MG PO (08:28)
[2024-08-01] MEDS: THIAMINE HCL 200 MG/2 ML VIAL 100 MG IV PUSH (08:29)
[2024-08-01] MEDS: LORazepam INJ (*CRX) 2 MG/ML VIAL 0.5 MG IV PUSH ×3 (08:30→23:38)
[2024-08-01] MEDS: FAMOTIDINE 20 MG/2 ML VIAL IV PUSH ×2 (08:32→21:05)
--- NOTE | 2024-08-01 10:20 | PM.PNGS ---
Progress Note: A&P Assessment and Plan (1) Pelvic abscess in male: Code(s): K65.1 - Peritoneal abscess Status: Acute Assessment and Plan: Patient to have CT-guided percutaneous drainage of pelvic abscess today. Anesthesia will be present to provide adequate sedation. Start on Levaquin and metronidazole. White blood cell count slightly lower today but has evidence of left shift, even more than yesterday. (2) H/O lysis of adhesions: Code(s): Z98.890 - Other specified postprocedural states Status: Acute Assessment and Plan: Postop day 8. Has good bowel sounds but still no BM. Hopefully draining the abscess will alleviate some of the delayed return of bowel function. Will ask wound nurses to see regarding abdominal wound care. 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: Code(s): K56.50 - Intestinal adhesions [bands], unspecified as to partial versus complete obstruction Status: Acute Assessment and Plan: Extensive adhesiolysis performed 07/24/2024 (4) Perioperative dehiscence of abdominal wound with evisceration: Qualifiers: Encounter type: subsequent encounter Qualified Code(s): T81.321D - Disruption or dehiscence of closure of internal operation (surgical) wound of abdominal wall muscle or fascia, subsequent encounter Code(s): T81.321A - Disruption or dehiscence of closure of internal operation (surgical) wound of abdominal wall muscle or fascia, initial encounter Status: Acute Assessment and Plan: Repaired 07/24/2024. Fascia intact, wound open, retention sutures in place. (5) Protein-calorie malnutrition, moderate: Code(s): E44.0 - Moderate protein-calorie malnutrition Status: Acute Assessment and Plan: TPN meeting needs per dietitian assessment. Continue present TPN and lipids. Subjective Subjective Date/Time Seen: 08/01/24 10:20 Post Op day: #8 Patient reports: no new complaints, pain is less, voiding w/o difficulty, flatus, no bowel movement and afebrile Review of Systems Review of Systems: All systems reviewed & are unremarkable except as noted in HPI and below (HPI) Exam Const: General: comfortable and no acute distress Orientation/consciousness: patient oriented x3 GI: Inspection: non-distended, incision (No brownish fluid, looks pretty dry, retention sutures and fascia intact), scaphoid and no visible herniation GI Palp: Yes Soft to palpation, Yes Tenderness to palpation present (GI) (At wound and retention sutures only), No Guarding due to palpation present (GI) and No Rebound tenderness present Auscultation: normal bowel sounds Neuro: General: patient oriented x3 and no focal motor deficits Extrem: General: no calf tenderness and no edema Psych: Affect: normal affect Insight: Good insight present (Psych) Judgement: Good judgement present (Psych) Objective Data Vital Signs Vital Signs: Vital Signs - 24 hr 07/31/24 12:10 07/31/24 17:00 07/31/24 20:00 Temperature 36.9 C 36.3 C L Pulse Rate 101 H 96 Respiratory Rate 16 17 Blood Pressure 142/90 H 131/89 Pulse Oximetry 98 97 Oxygen Delivery Room Air 07/31/24 21:02 08/01/24 00:22 08/01/24 05:53 Temperature 36.6 C 36.8 C 36.5 C Pulse Rate 90 93 87 Respiratory Rate 14 16 16 Blood Pressure 133/84 137/86 129/88 Pulse Oximetry 98 98 100 Oxygen Delivery 08/01/24 08:00 08/01/24 08:30 Temperature 36.6 C Pulse Rate 82 Respiratory Rate 18 Blood Pressure 135/83 Pulse Oximetry 100 Oxygen Delivery Room Air Intake/Output Intake/Output: Intake & Output 07/29/24 07/30/24 07/31/24 08/01/24 23:59 23:59 23:59 23:59 Intake Total 4661.8 4404.5 2452.5 1795.2 Output Total 5250 5150 2350 Balance -588.2 -745.5 102.5 1795.2 Meds/Results Medications: Active Medications Generic Name Dose Route Start Last Admin Trade Name Freq PRN Reason Stop Dose Admin Alteplase, Recombinant 2 mg 07/31/24 11:55 07/31/24 16:47 Alteplase 2 Mg Vial (Cathflo) IV PUSH 2 mg ONCE PRN Administration Line Occlusion Alteplase, Recombinant 2 mg 07/31/24 16:02 Alteplase 2 Mg Vial (Cathflo) IV PUSH ONCE PRN Line Occlusion Amitriptyline HCl 25 mg 07/25/24 21:00 07/31/24 20:51 Amitriptyline Hcl 25 Mg Tablet PO 25 mg HS EMILE Administration Benzocaine 1 lozenge 07/26/24 09:56 07/27/24 20:55 Benzocaine/Menthol (*Bkc) 18 Ea Lozenge PO 1 lozenge PRN PRN Administration Sore Throat Bupropion HCl 300 mg 07/26/24 09:00 08/01/24 08:28 Bupropion Hcl Xl (24 Hr) 150 Mg Tabcr PO 300 mg DAILY EMILE Administration Buspirone HCl 30 mg 07/28/24 10:20 08/01/24 08:28 Buspirone Hcl 10 Mg Tablet BY MOUTH 30 mg DAILY EMILE Administration Buspirone HCl 15 mg 07/28/24 21:00 07/31/24 20:51 Buspirone Hcl 5 Mg Tablet BY MOUTH 15 mg HS EMILE Administration Dextrose 12.5 gm 07/25/24 14:35 Dextrose 50% 25 Gm/50 Ml Syringe IV PUSH PRN PRN Hypoglycemia Protocol Enoxaparin Sodium 40 mg 07/25/24 09:00 08/01/24 08:28 Enoxaparin 40 Mg/0.4 Ml Syringe SUB-Q 40 mg DAILY EMILE Administration Famotidine 20 mg 07/24/24 21:00 08/01/24 08:32 Famotidine 20 Mg/2 Ml Vial IV PUSH 20 mg Q12HR EMILE Administration Glucagon 1 mg 07/25/24 14:35 Glucagon For Inj 1 Mg Vial IM PRN PRN Hypoglycemia Protocol Glucose 15 gm 07/25/24 14:35 Glucose Oral Gel 15 Gm Of Glucse In 37.5 Gm Tube PO PRN PRN Hypoglycemia Protocol Hydromorphone HCl 2 mg 07/24/24 20:38 07/25/24 06:10 Hydromorphone Hcl Inj (*Crx) 1 Mg/Ml Syr IV PUSH 2 mg Q2H PRN Administration Breakthrough Pain Rated 7-10 or NPO Hydromorphone HCl 1 mg 07/24/24 20:38 08/01/24 03:13 Hydromorphone Hcl Inj (*Crx) 1 Mg/Ml Syr IV PUSH 1 mg Q2H PRN Administration Breakthrough Pain Rated 4-6 or NPO Dextrose 1,000 mls @ 50 mls/hr 07/25/24 14:35 Dextrose 10% IV CONT .Q20H PRN if PN is interrupted Multivitamins 1.25 ml/ 1,002.5 mls @ 80 mls/hr 07/25/24 14:35 08/01/24 06:25 Multivitamins 1.25 ml/ Amino IV CONT 80 mls/hr Acids/Electrolytes/Dextrose .[id number] EMILE Administration Protocol Fat Emulsion Intravenous 250 mls @ 20.833 mls/hr 07/25/24 14:35 08/01/24 05:00 Lipids 20% IVPB Infused Q24H EMILE Infusion Dextrose 1,000 mls @ 100 mls/hr 07/25/24 14:35 Dextrose 5% 1,000 Ml IVPB PRN PRN Hypoglycemia Protocol Potassium Chloride/Dextrose/Sod Cl 1,000 mls @ 40 mls/hr 07/27/24 06:50 08/01/24 03:00 Kcl 40 Meq/D5ns IV CONT 80 mls/hr .Q24H EMILE Infusion Ibuprofen 800 mg in 200 mls @ 400 mls/hr 07/28/24 10:33 07/30/24 17:24 Caldolor 800 Mg/200 Ml IVPB Infused Q6H PRN Infusion Pain Rated 1-3 Levofloxacin/Dextrose 750 mg in 150 mls @ 100 mls/hr 08/01/24 10:15 Levaquin 750 Mg/D5w 150 Ml IVPB Q24H EMILE Metronidazole 500 mg in 100 mls @ 100 mls/hr 08/01/24 10:15 Flagyl 500 Mg/Iso Soln 100 Ml IVPB Q6H [facility] Insulin Aspart 3 - 6 units 07/25/24 18:00 08/01/24 07:35 Insulin Aspart (*Bkc) 100 Units/Ml SUB-Q Not Given Q6HR [facility] Protocol Lorazepam 0.5 mg 07/25/24 19:49 08/01/24 08:30 Lorazepam Inj (*Crx) 2 Mg/Ml Vial IV PUSH 0.5 mg Q6H PRN Administration Anxiety Lorazepam 1 mg 07/25/24 22:42 Lorazepam Inj (*Crx) 2 Mg/Ml Vial IV PUSH Q2H PRN CIWA 8-15 Lorazepam 2 mg 07/25/24 22:42 Lorazepam Inj (*Crx) 2 Mg/Ml Vial IV PUSH Q2H PRN CIWA > 15 Naloxone HCl 0.1 mg 07/24/24 20:38 Naloxone Hcl 0.4 Mg/Ml Vial IV PUSH Q2M PRN Opiate Reversal Phenol 1 spray 07/27/24 04:00 07/27/24 20:55 Phenol/Sod Pheno [place] Mendez (*Bkc) MUCOUS MEM 1 spray PRN PRN Administration Sore Throat Prochlorperazine Edisylate 10 mg 08/01/24 10:14 Prochlorperazine Edisylate 10 Mg/2 Ml Vial IV PUSH Q6H PRN Nausea And Vomiting Sodium Chloride 10 ml 07/25/24 14:00 08/01/24 07:35 Central Line Flush IV PUSH Not Given Q8HR EMILE Sodium Chloride 10 ml 07/25/24 11:31 Central Line Flush IV PUSH PRN PRN with TPN bag changes Sodium Chloride 20 ml 07/25/24 11:31 Central Line Flush IV PUSH PRN PRN after blood draws Thiamine HCl 100 mg 07/26/24 09:00 08/01/24 08:29 Thiamine Hcl 200 Mg/2 Ml Vial IV PUSH 100 mg DAILY EMILE Administration Radiology Results: ITS Impressions Feeding Tube Manipulation 07/28/24 09:51 IMPRESSION: 1: NG tube tip in the stomach. Abdomen Fluoroscopy 07/28/24 15:49 IMPRESSION: 1. Nasogastric tube tip in the stomach. 2. Dilated small bowel, likely adynamic ileus. 3. Airspace opacities at the lung bases, left worse than right, consistent with atelectasis versus pneumonia. Abdomen/Pelvis CT 07/31/24 10:04 IMPRESSION: 1. Postoperative changes in the abdomen and pelvis with a couple likely small bowel anastomoses. 2. Significant decrease in the previously seen wall thickening of the small bowel with a few mildly dilated loops of small bowel without a discrete transition point and would favor ileus over obstruction. 3. Few scattered foci of free intraperineal gas along with several new loculated fluid collections in the abdomen and pelvis suspicious for abscesses. The persistence of free gas approximately 3 weeks post surgery suggests possible residual bowel perforation or anastomotic breakdown. Could consider repeat CT with water-soluble oral contrast material. 4. Significant improvement in likely resolution of the prior pneumonia in the bilateral lower lobes with atelectasis with volume loss in the bilateral lower lobes. Residual pneumonia in the collapsed portion of the lungs cannot be optimally excluded. 5. Resolution of the prior small right pleural effusion and significant decrease in size of a now very small left pleural effusion. 6. Cardiomegaly. Abdomen X-Ray 07/31/24 12:30 IMPRESSION: 1. Nasogastric tube in the stomach. 2. Nonspecific bowel gas pattern and favor ileus over obstruction. Chest X-Ray 08/01/24 08:05 IMPRESSION: No acute cardiopulmonary pathology. Left PICC line with the tip overlying superior vena cava. Possible kink in the left axillary area. Labs Labs: Laboratory Results - last 24 hr 07/31/24 07/31/24 07/31/24 11:46 12:12 18:24 WBC RBC Hgb Hct MCV MCH MCHC RDW Plt Count MPV Immature Gran % (Auto) Neut % (Auto) Lymph % (Auto) [place] % (Auto) Eos % (Auto) Baso % (Auto) Lymph # (Auto) [place] # (Auto) Eos # (Auto) Baso # (Auto) Abs Immat Gran (auto) Absolute Neuts (auto) Absolute Nucleated RBC Nucleated RBC % Sodium Potassium Chloride Carbon Dioxide Anion Gap BUN Creatinine Estim Creat Clear Calc Estimated GFR Glucose POC Capillary Glucose 95 144 H Calcium Phosphorus Urine Color Yellow Urine Appearance Clear Urine pH 7.0 Ur Specific [place] 1.026 Urine Protein Negative Urine Glucose (UA) Negative Urine Ketones Negative Ur Blood (Man) Negative Urine Nitrate Negative Urine Bilirubin Negative Urine Urobilinogen 0.2 Leukocyte Esterase Rfl Negative 08/01/24 08/01/24 08/01/24 00:21 05:56 06:18 WBC 10.8 H RBC 3.78 L Hgb 11.6 L Hct 34.6 L MCV 91.5 MCH 30.7 MCHC 33.5 RDW 12.1 Plt Count 358 MPV 9.6 Immature Gran % (Auto) 4.6 H Neut % (Auto) 66.2 Lymph % (Auto) 11.9 L [place] % (Auto) 9.8 H Eos % (Auto) 6.9 H Baso % (Auto) 0.6 Lymph # (Auto) 1.29 [place] # (Auto) 1.1 H Eos # (Auto) 0.7 H Baso # (Auto) 0.1 Abs Immat Gran (auto) 0.50 H Absolute Neuts (auto) 7.2 H Absolute Nucleated RBC 0.000 Nucleated RBC % 0.0 Sodium 137 Potassium 4.3 Chloride 102 Carbon Dioxide 30 Anion Gap 5 BUN 17 Creatinine 0.70 Estim Creat Clear Calc 149 Estimated GFR > 60 Glucose 122 H POC Capillary Glucose 124 H 118 H Calcium 9.2 Phosphorus 4.1 Urine Color Urine Appearance Urine pH Ur Specific [place] Urine Protein Urine Glucose (UA) Urine Ketones Ur Blood (Man) Urine Nitrate Urine Bilirubin Urine Urobilinogen Leukocyte Esterase Rfl
[2024-08-01] MEDS: levoFLOXacin 750 MG/D5W 150 ML 750 MG/150 ML BAG 100 MG IVPB (10:31)
--- NOTE | 2024-08-01 10:44 | PCNFU ---
Nutrition Follow-Up Complete: Altered GI function as related to abd wound dehiscence as evidenced by NPO. Goal: Meet estimated nutritional needs. Patient is progressing towards goal. We will continue current goal. Pt current nutrition is TPN at 80 ml/hr. Last recorded weight is 104.7 kg up from 86.2 kg on admit. Bowel Motility: no BM at this time. Patient does state he is having flatus. Labs Reviewed: Glu 122, Hct 34.63, Hgb 11.6 Meds Noted:Thiamine,Clinimix E at 80 ml/hr, 250 ml of 20% Lipid Emulsion. Skin: WNL Additional Notes: Patient seen today for nutrition follow up. He has NGT in place. TPN running at 80 ml/hr providing 1863 kcal/96 gm protein. Current TPN is meeting 72% kcal needs at 30 kcal/kg and 100% protein needs at 1.0-1.2 gm/kg. Agree with diet orders. Will monitor weight, labs, skin, diet orders, meds every Wednesday and Wednesday.
[2024-08-01 13:26] LABS: Glucose Point of Care 96 mg/dl (65-105)
[2024-08-01] MEDS: PROCHLORPERAZINE EDISYLATE 10 MG/2 ML VIAL IV PUSH (13:48)
--- NOTE | 2024-08-01 13:57 | WPDMODSED ---
Moderate Sedation Note-Pt Data Patient Data Diagnosis: pelvic abscess Present Complaint: pelvic abscess Procedure to be performed/Plan: percutaneous abscess drain catheter placement Allergies Allergy/AdvReac Type Severity Reaction Status Date / Time Penicillins Allergy Unknown Verified 07/24/24 21:32 Home Medications ?Medication ?Instructions ?Recorded ?Confirmed ?Type acetaminophen 300 mg-codeine 30 mg 1 tablet PO Q6H PRN Incisional pain 07/02/24 07/26/24 History tablet alprazolam 0.5 mg tablet 0.5 mg PO BID PRN Anxiety 07/02/24 07/26/24 History amitriptyline 25 mg tablet 25 mg PO HS 07/02/24 07/26/24 History bupropion HCl 300 mg 24 hr tablet, 300 mg PO DAILY 07/02/24 07/26/24 History extended release buspirone 15 mg tablet 45 mg DAILY 07/02/24 07/26/24 History cetirizine 10 mg tablet 10 mg PO DAILY 07/02/24 07/26/24 History desvenlafaxine succinate 25 mg 25 mg PO DAILY 07/02/24 07/26/24 History tablet,extended release 24 hr docusate sodium 100 mg capsule 100 mg PO HS 07/02/24 07/26/24 History (Colace) fluticasone propionate 50 2 spray intranasal DAILY 07/02/24 07/26/24 History mcg/actuation nasal spray,suspension montelukast 10 mg tablet 10 mg PO DAILY 07/02/24 07/26/24 History omeprazole 40 mg capsule,delayed 40 mg PO DAILY 07/02/24 07/26/24 History release ondansetron HCl 8 mg tablet 8 mg PO Q8H PRN Nausea And Vomiting 07/02/24 07/26/24 History hydrocodone 5 mg-acetaminophen 325 1 tablet PO Q6H PRN Pain Rated 4-6 07/17/24 07/26/24 Rx mg tablet #20 tabs sulfamethoxazole 800 1 tab PO Q12HR 7 days #14 tabs 07/17/24 07/26/24 Rx mg-trimethoprim 160 mg tablet promethazine 12.5 mg tablet 12.5 mg PO Q6H PRN nausea and 07/18/24 07/26/24 Rx vomiting #10 tabs diphenhydramine HCl 50 mg capsule 50 mg PO HS 07/24/24 07/24/24 History doxylamine succinate 25 mg tablet 25 mg PO HS PRN Insomnia 07/24/24 07/24/24 History (Unisom (doxylamine)) multivitamin 1 tablet PO DAILY 07/24/24 07/24/24 History Current Medications: Active Medications Alteplase, Recombinant (Alteplase 2 Mg Vial (Cathflo)) 2 mg IV PUSH ONCE PRN PRN Reason: Line Occlusion Last Admin: 07/31/24 16:47 Dose: 2 mg Alteplase, Recombinant (Alteplase 2 Mg Vial (Cathflo)) 2 mg IV PUSH ONCE PRN PRN Reason: Line Occlusion Amitriptyline HCl (Amitriptyline Hcl 25 Mg Tablet) 25 mg PO HS [facility] Last Admin: 07/31/24 20:51 Dose: 25 mg Benzocaine (Benzocaine/Menthol (*Bkc) 18 Ea Lozenge) 1 lozenge PO PRN PRN PRN Reason: Sore Throat Last Admin: 07/27/24 20:55 Dose: 1 lozenge Bupropion HCl (Bupropion Hcl Xl (24 Hr) 150 Mg Tabcr) 300 mg PO DAILY [facility] Last Admin: 08/01/24 08:28 Dose: 300 mg Buspirone HCl (Buspirone Hcl 10 Mg Tablet) 30 mg BY MOUTH DAILY [facility] Last Admin: 08/01/24 08:28 Dose: 30 mg Buspirone HCl (Buspirone Hcl 5 Mg Tablet) 15 mg BY MOUTH HS [facility] Last Admin: 07/31/24 20:51 Dose: 15 mg Dextrose (Dextrose 50% 25 Gm/50 Ml Syringe) 12.5 gm IV PUSH PRN PRN; Protocol PRN Reason: Hypoglycemia Enoxaparin Sodium (Enoxaparin 40 Mg/0.4 Ml Syringe) 40 mg SUB-Q DAILY [facility] Last Admin: 08/01/24 08:28 Dose: 40 mg Famotidine (Famotidine 20 Mg/2 Ml Vial) 20 mg IV PUSH Q12HR [facility] Last Admin: 08/01/24 08:32 Dose: 20 mg Glucagon (Glucagon For Inj 1 Mg Vial) 1 mg IM PRN PRN; Protocol PRN Reason: Hypoglycemia Glucose (Glucose Oral Gel 15 Gm Of Glucse In 37.5 Gm Tube) 15 gm PO PRN PRN; Protocol PRN Reason: Hypoglycemia Hydromorphone HCl (Hydromorphone Hcl Inj (*Crx) 1 Mg/Ml Syr) 2 mg IV PUSH Q2H PRN PRN Reason: Breakthrough Pain Rated 7-10 or NPO Last Admin: 07/25/24 06:10 Dose: 2 mg Hydromorphone HCl (Hydromorphone Hcl Inj (*Crx) 1 Mg/Ml Syr) 1 mg IV PUSH Q2H PRN PRN Reason: Breakthrough Pain Rated 4-6 or NPO Last Admin: 08/01/24 10:31 Dose: 1 mg Dextrose (Dextrose 10%) 1,000 mls @ 50 mls/hr IV CONT .Q20H PRN PRN Reason: if PN is interrupted Multivitamins 1.25 ml/Multivitamins 1.25 ml/ Amino Acids/Electrolytes/Dextrose 1,002.5 mls @ 80 mls/hr IV CONT .[id number] [facility]; Protocol Last Admin: 08/01/24 06:25 Dose: 80 mls/hr Fat Emulsion Intravenous (Lipids 20%) 250 mls @ 20.833 mls/hr IVPB Q24H [facility] Last Infusion: 08/01/24 05:00 Dose: Infused Dextrose (Dextrose 5% 1,000 Ml) 1,000 mls @ 100 mls/hr IVPB PRN PRN; Protocol PRN Reason: Hypoglycemia Potassium Chloride/Dextrose/Sod Cl (Kcl 40 Meq/D5ns) 1,000 mls @ 40 mls/hr IV CONT .Q24H [facility] Last Infusion: 08/01/24 10:45 Dose: 40 mls/hr Ibuprofen (Caldolor 800 Mg/200 Ml) 800 mg in 200 mls @ 400 mls/hr IVPB Q6H PRN PRN Reason: Pain Rated 1-3 Last Infusion: 07/30/24 17:24 Dose: Infused Levofloxacin/Dextrose (Levaquin 750 Mg/D5w 150 Ml) 750 mg in 150 mls @ 100 mls/hr IVPB Q24H [facility] Last Admin: 08/01/24 10:31 Dose: 100 mls/hr Metronidazole (Flagyl 500 Mg/Iso Soln 100 Ml) 500 mg in 100 mls @ 100 mls/hr IVPB Q6H [facility] Insulin Aspart (Insulin Aspart (*Bkc) 100 Units/Ml) 3 - 6 units SUB-Q Q6HR [facility]; Protocol Last Admin: 08/01/24 07:35 Dose: Not Given Lorazepam (Lorazepam Inj (*Crx) 2 Mg/Ml Vial) 0.5 mg IV PUSH Q6H PRN PRN Reason: Anxiety Last Admin: 08/01/24 08:30 Dose: 0.5 mg Lorazepam (Lorazepam Inj (*Crx) 2 Mg/Ml Vial) 1 mg IV PUSH Q2H PRN PRN Reason: CIWA 8-15 Lorazepam (Lorazepam Inj (*Crx) 2 Mg/Ml Vial) 2 mg IV PUSH Q2H PRN PRN Reason: CIWA > 15 Naloxone HCl (Naloxone Hcl 0.4 Mg/Ml Vial) 0.1 mg IV PUSH Q2M PRN PRN Reason: Opiate Reversal Phenol (Phenol/Sod Pheno [place] (*Bkc)) 1 spray MUCOUS MEM PRN PRN PRN Reason: Sore Throat Last Admin: 07/27/24 20:55 Dose: 1 spray Prochlorperazine Edisylate (Prochlorperazine Edisylate 10 Mg/2 Ml Vial) 10 mg IV PUSH Q6H PRN PRN Reason: Nausea And Vomiting Last Admin: 08/01/24 13:48 Dose: 10 mg Sodium Chloride (Central Line Flush) 10 ml IV PUSH Q8HR [facility] Last Admin: 08/01/24 07:35 Dose: Not Given Sodium Chloride (Central Line Flush) 10 ml IV PUSH PRN PRN PRN Reason: with TPN bag changes Sodium Chloride (Central Line Flush) 20 ml IV PUSH PRN PRN PRN Reason: after blood draws Thiamine HCl (Thiamine Hcl 200 Mg/2 Ml Vial) 100 mg IV PUSH DAILY [facility] Last Admin: 08/01/24 08:29 Dose: 100 mg Sedation/Anesthesia: No previous sedation/anesthesia problems (including family history). [facility] Past Medical History Medical History Depression with anxiety Gastroesophageal reflux disease George esophagus Small bowel obstruction Surgical History Surgical History History of laser assisted in situ keratomileusis History of left inguinal hernia repair History of appendectomy History of hernia repair History of resection of small bowel History of lysis of adhesions (07/24/24) for small-bowel obstruction, two small enterotomies repaired, no resection History of exploratory laparotomy For what sounds like ruptured Meckel's diverticulum in his early 20s Family History Family History Grandparent Acute myocardial infarction Cerebrovascular accident Congestive heart failure Hypertension Other Congestive heart failure Grandparent Acute myocardial infarction Congestive heart failure Diabetes mellitus Hypertension Breast cancer Grandparent Acute myocardial infarction Congestive heart failure Hypertension Father Congestive heart failure Hypertension Social History Social History (Updated 07/25/24 @ 22:35 by Marley Nichols PA-C) Social History: Surrogate medical decision maker: Chyna Rosales, sibling. Code status: Full code. Smoking status: Never smoker Alcohol intake: current Drinks per week: 8 Substance use: never Substance use type: does not use Do You Feel Safe in your Home?: Yes Lack of Transportation: No Lack of Food: Never True Current Housing: I Have Housing Concerned About Future Housing: No Difficulty Paying Gas/Electric Bills: No Difficulty Paying for Meds: No Currently Unemployed: No Education: Master's Degree or Higher Difficulty w/ Childcare or Family Care: No Additional living arrangements comments: Lives in [place]. 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 Spiritual care concerns: No Mod Sed Physical Exam Physical Exam Pre Procedural Exam: Normal: Appearance, Throat, Lungs, Heart Rate and Heart Rhythm Hours since solid foods: 12 Hours since liquid intake: 12 Mallampati Classification: class II Internal Medicine - PN: Obj Da Vital Signs Vital Signs: Vital Signs - 24 hr 07/31/24 17:00 07/31/24 20:00 07/31/24 21:02 Temperature 97.4 F L 97.9 F Pulse Rate 96 90 Respiratory Rate 17 14 Blood Pressure 131/89 133/84 Pulse Oximetry 97 98 Oxygen Delivery Room Air 08/01/24 00:22 08/01/24 05:53 08/01/24 08:00 Temperature 98.3 F 97.7 F 97.9 F Pulse Rate 93 87 82 Respiratory Rate 16 16 18 Blood Pressure 137/86 129/88 135/83 Pulse Oximetry 98 100 100 Oxygen Delivery 08/01/24 08:30 08/01/24 13:26 Temperature 97.5 F L Pulse Rate 103 H Respiratory Rate 18 Blood Pressure 129/79 Pulse Oximetry 99 Oxygen Delivery Room Air Intake/Output Intake/Output: Intake & Output 07/29/24 07/30/24 07/31/24 08/01/24 23:59 23:59 23:59 23:59 Intake Total 4661.8 4404.5 2452.5 1795.2 Output Total 5250 5150 2350 Balance -588.2 -745.5 102.5 1795.2 Meds/Results Medications: Active Medications Generic Name Dose Route Start Last Admin Trade Name Freq PRN Reason Stop Dose Admin Alteplase, Recombinant 2 mg 07/31/24 11:55 07/31/24 16:47 Alteplase 2 Mg Vial (Cathflo) IV PUSH 2 mg ONCE PRN Administration Line Occlusion Alteplase, Recombinant 2 mg 07/31/24 16:02 Alteplase 2 Mg Vial (Cathflo) IV PUSH ONCE PRN Line Occlusion Amitriptyline HCl 25 mg 07/25/24 21:00 07/31/24 20:51 Amitriptyline Hcl 25 Mg Tablet PO 25 mg HS [facility] Administration Benzocaine 1 lozenge 07/26/24 09:56 07/27/24 20:55 Benzocaine/Menthol (*Bkc) 18 Ea Lozenge PO 1 lozenge PRN PRN Administration Sore Throat Bupropion HCl 300 mg 07/26/24 09:00 08/01/24 08:28 Bupropion Hcl Xl (24 Hr) 150 Mg Tabcr PO 300 mg DAILY [facility] Administration Buspirone HCl 30 mg 07/28/24 10:20 08/01/24 08:28 Buspirone Hcl 10 Mg Tablet BY MOUTH 30 mg DAILY [facility] Administration Buspirone HCl 15 mg 07/28/24 21:00 07/31/24 20:51 Buspirone Hcl 5 Mg Tablet BY MOUTH 15 mg HS [facility] Administration Dextrose 12.5 gm 07/25/24 14:35 Dextrose 50% 25 Gm/50 Ml Syringe IV PUSH PRN PRN Hypoglycemia Protocol Enoxaparin Sodium 40 mg 07/25/24 09:00 08/01/24 08:28 Enoxaparin 40 Mg/0.4 Ml Syringe SUB-Q 40 mg DAILY [facility] Administration Famotidine 20 mg 07/24/24 21:00 08/01/24 08:32 Famotidine 20 Mg/2 Ml Vial IV PUSH 20 mg Q12HR [facility] Administration Glucagon 1 mg 07/25/24 14:35 Glucagon For Inj 1 Mg Vial IM PRN PRN Hypoglycemia Protocol Glucose 15 gm 07/25/24 14:35 Glucose Oral Gel 15 Gm Of Glucse In 37.5 Gm Tube PO PRN PRN Hypoglycemia Protocol Hydromorphone HCl 2 mg 07/24/24 20:38 07/25/24 06:10 Hydromorphone Hcl Inj (*Crx) 1 Mg/Ml Syr IV PUSH 2 mg Q2H PRN Administration Breakthrough Pain Rated 7-10 or NPO Hydromorphone HCl 1 mg 07/24/24 20:38 08/01/24 10:31 Hydromorphone Hcl Inj (*Crx) 1 Mg/Ml Syr IV PUSH 1 mg Q2H PRN Administration Breakthrough Pain Rated 4-6 or NPO Dextrose 1,000 mls @ 50 mls/hr 07/25/24 14:35 Dextrose 10% IV CONT .Q20H PRN if PN is interrupted Multivitamins 1.25 ml/ 1,002.5 mls @ 80 mls/hr 07/25/24 14:35 08/01/24 06:25 Multivitamins 1.25 ml/ Amino IV CONT 80 mls/hr Acids/Electrolytes/Dextrose .[id number] [facility] Administration Protocol Fat Emulsion Intravenous 250 mls @ 20.833 mls/hr 07/25/24 14:35 08/01/24 05:00 Lipids 20% IVPB Infused Q24H [facility] Infusion Dextrose 1,000 mls @ 100 mls/hr 07/25/24 14:35 Dextrose 5% 1,000 Ml IVPB PRN PRN Hypoglycemia Protocol Potassium Chloride/Dextrose/Sod Cl 1,000 mls @ 40 mls/hr 07/27/24 06:50 08/01/24 10:45 Kcl 40 Meq/D5ns IV CONT 40 mls/hr .Q24H [facility] Infusion Ibuprofen 800 mg in 200 mls @ 400 mls/hr 07/28/24 10:33 07/30/24 17:24 Caldolor 800 Mg/200 Ml IVPB Infused Q6H PRN Infusion Pain Rated 1-3 Levofloxacin/Dextrose 750 mg in 150 mls @ 100 mls/hr 08/01/24 09:00 12/17/24 10:31 Levaquin 750 Mg/D5w 150 Ml IVPB 100 mls/hr Q24H [facility] Administration Metronidazole 500 mg in 100 mls @ 100 mls/hr 08/01/24 14:00 Flagyl 500 Mg/Iso Soln 100 Ml IVPB Q6H [facility] Insulin Aspart 3 - 6 units 07/25/24 18:00 08/01/24 07:35 Insulin Aspart (*Bkc) 100 Units/Ml SUB-Q Not Given Q6HR [facility] Protocol Lorazepam 0.5 mg 07/25/24 19:49 08/01/24 08:30 Lorazepam Inj (*Crx) 2 Mg/Ml Vial IV PUSH 0.5 mg Q6H PRN Administration Anxiety Lorazepam 1 mg 07/25/24 22:42 Lorazepam Inj (*Crx) 2 Mg/Ml Vial IV PUSH Q2H PRN CIWA 8-15 Lorazepam 2 mg 07/25/24 22:42 Lorazepam Inj (*Crx) 2 Mg/Ml Vial IV PUSH Q2H PRN CIWA > 15 Naloxone HCl 0.1 mg 07/24/24 20:38 Naloxone Hcl 0.4 Mg/Ml Vial IV PUSH Q2M PRN Opiate Reversal Phenol 1 spray 07/27/24 04:00 07/27/24 20:55 Phenol/Sod Pheno [place] (*Bkc) MUCOUS MEM 1 spray PRN PRN Administration Sore Throat Prochlorperazine Edisylate 10 mg 08/01/24 10:14 08/01/24 13:48 Prochlorperazine Edisylate 10 Mg/2 Ml Vial IV PUSH 10 mg Q6H PRN Administration Nausea And Vomiting Sodium Chloride 10 ml 07/25/24 14:00 08/01/24 07:35 Central Line Flush IV PUSH Not Given Q8HR [facility] Sodium Chloride 10 ml 07/25/24 11:31 Central Line Flush IV PUSH PRN PRN with TPN bag changes Sodium Chloride 20 ml 07/25/24 11:31 Central Line Flush IV PUSH PRN PRN after blood draws Thiamine HCl 100 mg 07/26/24 09:00 08/01/24 08:29 Thiamine Hcl 200 Mg/2 Ml Vial IV PUSH 100 mg DAILY [facility] Administration Radiology Results: ITS Impressions Feeding Tube Manipulation 07/28/24 09:51 IMPRESSION: 1: NG tube tip in the stomach. Abdomen Fluoroscopy 07/28/24 15:49 IMPRESSION: 1. Nasogastric tube tip in the stomach. 2. Dilated small bowel, likely adynamic ileus. 3. Airspace opacities at the lung bases, left worse than right, consistent with atelectasis versus pneumonia. Abdomen/Pelvis CT 07/31/24 10:04 IMPRESSION: 1. Postoperative changes in the abdomen and pelvis with a couple likely small bowel anastomoses. 2. Significant decrease in the previously seen wall thickening of the small bowel with a few mildly dilated loops of small bowel without a discrete transition point and would favor ileus over obstruction. 3. Few scattered foci of free intraperineal gas along with several new loculated fluid collections in the abdomen and pelvis suspicious for abscesses. The persistence of free gas approximately 3 weeks post surgery suggests possible residual bowel perforation or anastomotic breakdown. Could consider repeat CT with water-soluble oral contrast material. 4. Significant improvement in likely resolution of the prior pneumonia in the bilateral lower lobes with atelectasis with volume loss in the bilateral lower lobes. Residual pneumonia in the collapsed portion of the lungs cannot be optimally excluded. 5. Resolution of the prior small right pleural effusion and significant decrease in size of a now very small left pleural effusion. 6. Cardiomegaly. Abdomen X-Ray 07/31/24 12:30 IMPRESSION: 1. Nasogastric tube in the stomach. 2. Nonspecific bowel gas pattern and favor ileus over obstruction. Chest X-Ray 08/01/24 08:05 IMPRESSION: No acute cardiopulmonary pathology. Left PICC line with the tip overlying superior vena cava. Possible kink in the left axillary area. Labs 08/01/24 06:18 08/01/24 06:18 Labs: Laboratory Results - last 24 hr 07/31/24 08/01/24 08/01/24 18: 00:21 05:56 WBC RBC Hgb Hct MCV MCH MCHC RDW Plt Count MPV Immature Gran % (Auto) Neut % (Auto) Lymph % (Auto) [place] % (Auto) Eos % (Auto) Baso % (Auto) Lymph # (Auto) [place] # (Auto) Eos # (Auto) Baso # (Auto) Abs Immat Gran (auto) Absolute Neuts (auto) Absolute Nucleated RBC Nucleated RBC % Sodium Potassium Chloride Carbon Dioxide Anion Gap BUN Creatinine Estim Creat Clear Calc Estimated GFR Glucose POC Capillary Glucose 144 H 124 H 118 H Calcium Phosphorus 08/01/24 08/01/24 06:18 13:17 WBC 10.8 H RBC 3.78 L Hgb 11.6 L Hct 34.6 L MCV 91.5 MCH 30.7 MCHC 33.5 RDW 12.1 Plt Count 358 MPV 9.6 Immature Gran % (Auto) 4.6 H Neut % (Auto) 66.2 Lymph % (Auto) 11.9 L [place] % (Auto) 9.8 H Eos % (Auto) 6.9 H Baso % (Auto) 0.6 Lymph # (Auto) 1.29 [place] # (Auto) 1.1 H Eos # (Auto) 0.7 H Baso # (Auto) 0.1 Abs Immat Gran (auto) 0.50 H Absolute Neuts (auto) 7.2 H Absolute Nucleated RBC 0.000 Nucleated RBC % 0.0 Sodium 137 Potassium 4.3 Chloride 102 Carbon Dioxide 30 Anion Gap 5 BUN 17 Creatinine 0.70 Estim Creat Clear Calc 149 Estimated GFR > 60 Glucose 122 H POC Capillary Glucose 96 Calcium 9.2 Phosphorus 4.1 ASA Classification/Sedation ASA Classification/Sedation ASA Class: II Emergent: No Risks: Risks, benefits and alternatives explained and patient/family accepted plan for sedation. Patient re-evaluated immediately prior to sedation.
[2024-08-01] MEDS: metroNIDAZOLE 500 MG/ISO 100ML 500 MG/100 ML BAG 100 MG IVPB ×2 (14:48→21:01)
[2024-08-01] MEDS: CENTRAL LINE FLUSH 10 ML IV PUSH ×2 (14:48→21:09)
[2024-08-01] MEDS: FAT EMULSIONS IV 20% 250 ML 20.8 ML IVPB (15:19)
[2024-08-01 15:24] LABS: Triglycerides 166 mg/dL (<150)
[2024-08-01 18:19] LABS: Glucose Point of Care 92 mg/dl (65-105)
[2024-08-01] MEDS: KCL 40 MEQ/D5/0.9% SOD CHL 1,000 ML 40 ML IV CONT (20:58)
[2024-08-01] MEDS: busPIRone HCL 5 MG TABLET 15 MG BY MOUTH (21:09)
[2024-08-01] MEDS: AMITRIPTYLINE HCL 25 MG TABLET PO (21:09)
[2024-08-01] MEDS: IBUPROFEN IV 800 MG/200 ML 800 MG/200 ML BAG 400 MG IVPB (22:50)
[2024-08-02] VITALS (8 sets, daily range): BP systolic 106–138; BP diastolic 76–91; PULSE 73–177; RESP 16–20; TEMP 36.1–36.8; O2SAT 98–100
[2024-08-02 01:22] LABS: Glucose Point of Care 119 mg/dl (65-105)
[2024-08-02] MEDS: metroNIDAZOLE 500 MG/ISO 100ML 500 MG/100 ML BAG 100 MG IVPB ×4 (02:19→20:44)
[2024-08-02] MEDS: HYDROmorphone HCL INJ (*CRX) 1 MG/ML SYR IV PUSH ×7 (05:22→20:51)
[2024-08-02 05:24] LABS: Basophils Absolute Auto 0.1 K/mm3 (0.0-0.1); Basophils Percent Auto 0.5 % (0.2-1.2); Eosinophils Absolute Auto 0.7 K/mm3 (0-0.3); Eosinophils Percent Auto 7.2 % (0-4.4); Hematocrit 34.2 % (42.0-52.0); Hemoglobin 11.3 g/dL (14.0-18.0); Immature Granulocyte Percent A 5.3 % (0-0.5); Lymphocytes Absolute Auto 1.21 K/mm3 (0.9-3.2); Lymphocytes Percent Auto 12.7 % (18.3-44.2); Mean Corpuscular Hemoglobin 30.3 pg (26-34); Mean Corpuscular Volume 91.7 fl (80-100); Mean Platelet Volume 9.7 fl (7.4-10.4); Monocytes Absolute Auto 0.7 K/mm3 (0.1-0.6); Monocytes Percent Auto 7.8 % (2.6-8.5); Neutrophils Absolute Auto 6.3 K/mm3 (1.3-6.7); Neutrophils Percent Auto 66.5 % (45.5-73.1); Platelet Count Result 350 k/mm3 (150-375); Red Blood Count 3.73 M/mm3 (4.6-6.20); White Blood Count 9.5 K/mm3 (4.5-10.0)
[2024-08-02 05:35] LABS: Anion Gap 5 mmol/L (4-12); Blood Urea Nitrogen 21 mg/dL (9-20); CRP 3.8 mg/dL (<1.0); Calcium 9.3 mg/dL (8.4-10.2); Carbon Dioxide 30 mmol/L (22-30); Chloride 103 mmol/L (98-107); Estimated CRCL calculation 132 ml/min; Estimated Glomerular Filt Rate > 60; Glucose 119 mg/dL (65-110); Sodium 138 mmol/L (137-145)
[2024-08-02] MEDS: LORazepam INJ (*CRX) 2 MG/ML VIAL 0.5 MG IV PUSH ×3 (06:50→22:04)
[2024-08-02] MEDS: CENTRAL LINE FLUSH 10 ML IV PUSH ×3 (07:02→20:53)
[2024-08-02 07:31] LABS: Glucose Point of Care 104 mg/dl (65-105)
[2024-08-02] MEDS: busPIRone HCL 10 MG TABLET 30 MG BY MOUTH (08:08)
[2024-08-02] MEDS: buPROPion HCL XL (24 HR) 150 MG TABCR 300 MG PO (08:09)
[2024-08-02] MEDS: ENOXAPARIN 40 MG/0.4 ML SYRINGE SUB-Q (08:09)
[2024-08-02] MEDS: FAMOTIDINE 20 MG/2 ML VIAL IV PUSH ×2 (08:10→20:40)
[2024-08-02] MEDS: THIAMINE HCL 200 MG/2 ML VIAL 100 MG IV PUSH (08:17)
[2024-08-02] MEDS: levoFLOXacin 750 MG/D5W 150 ML 750 MG/150 ML BAG 100 MG IVPB (09:07)
[2024-08-02] MEDS: AMINO ACIDS 5%/D15W/E-LYTES/CA 1,000 ML with MULTIVITAMINS-12 INJ VIAL 1 1.25 ML, MULTI... 80 ML IV CONT ×2 (09:21→22:02)
--- NOTE | 2024-08-02 10:53 | P.PNGS_ITS ---
Progress Note: A&P Assessment and Plan (1) Pelvic abscess in male: Code(s): K65.1 - Peritoneal abscess Status: Acute Assessment and Plan: Output from pigtail catheter is minimal and appears bloody, not purulent. Await results of Gram stain and cultures. Tolerating the drain well. (2) H/O lysis of adhesions: Code(s): Z98.890 - Other specified postprocedural states Status: Acute Assessment and Plan: Patient has only small BM but has good bowel sounds and normal imaging. Not sure why NG output remains so high-1700 cc yesterday. Will get water-soluble contrast study today. Possibly remove NG tube if transit time is normal. 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: Code(s): K56.50 - Intestinal adhesions [bands], unspecified as to partial versus complete obstruction Status: Acute Assessment and Plan: Extensive adhesiolysis performed 07/24/2024 (4) Perioperative dehiscence of abdominal wound with evisceration: Qualifiers: Encounter type: subsequent encounter Qualified Code(s): T81.321D - Disruption or dehiscence of closure of internal operation (surgical) wound of abdominal wall muscle or fascia, subsequent encounter Code(s): T81.321A - Disruption or dehiscence of closure of internal operation (surgical) wound of abdominal wall muscle or fascia, initial encounter Status: Acute Assessment and Plan: Fascial closure intact. Retention sutures in place. Wound VAC has been started and is working well. (5) Protein-calorie malnutrition, moderate: Code(s): E44.0 - Moderate protein-calorie malnutrition Status: Acute Assessment and Plan: Continue TPN. Meeting needs. PICC line repositioned and no longer has kink seen on plain films. Subjective Subjective Date/Time Seen: 08/02/24 10:53 Post Op day: #9 Patient reports: feels better, pain is less, voiding w/o difficulty, flatus, bowel movement (Very small) and afebrile Exam Const: General: cooperative, comfortable, no acute distress, alert, awake, well groomed and thin Orientation/consciousness: patient oriented x3 GI: Inspection: non-distended, incision (Wound VAC in place), scaphoid, no visible herniation and other (Very little drainage from pigtail, looks bloody, no pus) GI Palp: Yes Soft to palpation and Yes Tenderness to palpation present (GI) (Mostly wound area) Auscultation: normal bowel sounds Neuro: General: patient oriented x3 and no focal motor deficits Extrem: General: no calf tenderness and no edema Psych: Affect: normal affect Insight: Good insight present (Psych) Judgement: Good judgement present (Psych) Objective Data Vital Signs Vital Signs: Vital Signs - 24 hr 08/01/24 11:25 08/01/24 11:30 08/01/24 11:35 Temperature Pulse Rate 91 95 97 Respiratory Rate 19 21 H 17 Blood Pressure 122/90 120/80 133/86 Pulse Oximetry 100 100 100 Oxygen Delivery 08/01/24 11:40 08/01/24 11:45 08/01/24 11:50 Temperature Pulse Rate 94 93 93 Respiratory Rate 17 16 20 Blood Pressure 135/87 122/86 127/83 Pulse Oximetry 100 100 100 Oxygen Delivery 08/01/24 11:55 08/01/24 12:00 08/01/24 12:05 Temperature Pulse Rate 96 91 98 Respiratory Rate 18 20 17 Blood Pressure 119/93 H 138/83 140/83 Pulse Oximetry 100 100 99 Oxygen Delivery 08/01/24 12:10 08/01/24 12:15 08/01/24 12:20 Temperature Pulse Rate 94 101 H 102 H Respiratory Rate 15 15 19 Blood Pressure 139/93 H 143/89 H 127/89 Pulse Oximetry 99 100 100 Oxygen Delivery 08/01/24 12:25 08/01/24 12:30 08/01/24 12:35 Temperature Pulse Rate 100 95 96 Respiratory Rate 15 20 19 Blood Pressure 127/90 139/89 134/83 Pulse Oximetry 100 97 98 Oxygen Delivery 08/01/24 13:26 08/01/24 16:00 08/01/24 21:24 Temperature 36.4 C L 36.5 C 36.4 C Pulse Rate 103 H 90 81 Respiratory Rate 18 18 16 Blood Pressure 129/79 135/97 H 136/83 Pulse Oximetry 99 98 100 Oxygen Delivery 08/02/24 00:58 08/02/24 07:11 08/02/24 08:00 Temperature 36.6 C 36.5 C 36.3 C L Pulse Rate 73 74 86 Respiratory Rate 16 16 20 Blood Pressure 138/87 106/76 133/81 Pulse Oximetry 98 100 100 Oxygen Delivery 08/02/24 09:21 Temperature Pulse Rate Respiratory Rate 20 Blood Pressure Pulse Oximetry 100 Oxygen Delivery Room Air Intake/Output Intake/Output: Intake & Output 07/30/24 07/31/24 08/01/24 08/02/24 23:59 23:59 23:59 23:59 Intake Total 4404.5 2452.5 3905.0 1885.3 Output Total 5150 2350 1700 900 Balance -745.5 102.5 2205.0 985.3 continues to have large NG output Meds/Results Medications: Active Medications Generic Name Dose Route Start Last Admin Trade Name Freq PRN Reason Stop Dose Admin Alteplase, Recombinant 2 mg 07/31/24 11:55 07/31/24 16:47 Alteplase 2 Mg Vial (Cathflo) IV PUSH 2 mg ONCE PRN Administration Line Occlusion Alteplase, Recombinant 2 mg 07/31/24 16:02 Alteplase 2 Mg Vial (Cathflo) IV PUSH ONCE PRN Line Occlusion Amitriptyline HCl 25 mg 07/25/24 21:00 08/01/24 21:09 Amitriptyline Hcl 25 Mg Tablet PO 25 mg HS EMILE Administration Benzocaine 1 lozenge 07/26/24 09:56 07/27/24 20:55 Benzocaine/Menthol (*Bkc) 18 Ea Lozenge PO 1 lozenge PRN PRN Administration Sore Throat Bupropion HCl 300 mg 07/26/24 09:00 08/02/24 08:09 Bupropion Hcl Xl (24 Hr) 150 Mg Tabcr PO 300 mg DAILY EMILE Administration Buspirone HCl 30 mg 07/28/24 10:20 08/02/24 08:08 Buspirone Hcl 10 Mg Tablet BY MOUTH 30 mg DAILY EMILE Administration Buspirone HCl 15 mg 07/28/24 21:00 08/01/24 21:09 Buspirone Hcl 5 Mg Tablet BY MOUTH 15 mg HS EMILE Administration Dextrose 12.5 gm 07/25/24 14:35 Dextrose 50% 25 Gm/50 Ml Syringe IV PUSH PRN PRN Hypoglycemia Protocol Enoxaparin Sodium 40 mg 07/25/24 09:00 08/02/24 08:09 Enoxaparin 40 Mg/0.4 Ml Syringe SUB-Q 40 mg DAILY EMILE Administration Famotidine 20 mg 07/24/24 21:00 08/02/24 08:10 Famotidine 20 Mg/2 Ml Vial IV PUSH 20 mg Q12HR EMILE Administration Glucagon 1 mg 07/25/24 14:35 Glucagon For Inj 1 Mg Vial IM PRN PRN Hypoglycemia Protocol Glucose 15 gm 07/25/24 14:35 Glucose Oral Gel 15 Gm Of Glucse In 37.5 Gm Tube PO PRN PRN Hypoglycemia Protocol Hydromorphone HCl 2 mg 07/24/24 20:38 07/25/24 06:10 Hydromorphone Hcl Inj (*Crx) 1 Mg/Ml Syr IV PUSH 2 mg Q2H PRN Administration Breakthrough Pain Rated 7-10 or NPO Hydromorphone HCl 1 mg 07/24/24 20:38 08/02/24 07:51 Hydromorphone Hcl Inj (*Crx) 1 Mg/Ml Syr IV PUSH 1 mg Q2H PRN Administration Breakthrough Pain Rated 4-6 or NPO Dextrose 1,000 mls @ 50 mls/hr 07/25/24 14:35 Dextrose 10% IV CONT .Q20H PRN if PN is interrupted Multivitamins 1.25 ml/ 1,002.5 mls @ 80 mls/hr 07/25/24 14:35 08/02/24 09:21 Multivitamins 1.25 ml/ Amino IV CONT 80 mls/hr Acids/Electrolytes/Dextrose .[id number] EMILE Administration Protocol Fat Emulsion Intravenous 250 mls @ 20.833 mls/hr 07/25/24 14:35 08/02/24 03:45 Lipids 20% IVPB Infused Q24H EMILE Infusion Dextrose 1,000 mls @ 100 mls/hr 07/25/24 14:35 Dextrose 5% 1,000 Ml IVPB PRN PRN Hypoglycemia Protocol Potassium Chloride/Dextrose/Sod Cl 1,000 mls @ 40 mls/hr 07/27/24 06:50 08/02/24 09:07 Kcl 40 Meq/D5ns IV CONT 0 mls/hr .Q24H EMILE Infusion Ibuprofen 800 mg in 200 mls @ 400 mls/hr 07/28/24 10:33 08/01/24 23:20 Caldolor 800 Mg/200 Ml IVPB Infused Q6H PRN Infusion Pain Rated 1-3 Levofloxacin/Dextrose 750 mg in 150 mls @ 100 mls/hr 08/01/24 09:00 08/02/24 09:07 Levaquin 750 Mg/D5w 150 Ml IVPB 100 mls/hr Q24H EMILE Administration Metronidazole 500 mg in 100 mls @ 100 mls/hr 08/01/24 14:00 08/02/24 08:53 Flagyl 500 Mg/Iso Soln 100 Ml IVPB Infused Q6H EMILE Infusion Insulin Aspart 3 - 6 units 07/25/24 18:00 08/02/24 07:03 Insulin Aspart (*Bkc) 100 Units/Ml SUB-Q Not Given Q6HR [facility] Protocol Lorazepam 0.5 mg 07/25/24 19:49 08/02/24 06:50 Lorazepam Inj (*Crx) 2 Mg/Ml Vial IV PUSH 0.5 mg Q6H PRN Administration Anxiety Lorazepam 1 mg 07/25/24 22:42 Lorazepam Inj (*Crx) 2 Mg/Ml Vial IV PUSH Q2H PRN CIWA 8-15 Lorazepam 2 mg 07/25/24 22:42 Lorazepam Inj (*Crx) 2 Mg/Ml Vial IV PUSH Q2H PRN CIWA > 15 Naloxone HCl 0.1 mg 07/24/24 20:38 Naloxone Hcl 0.4 Mg/Ml Vial IV PUSH Q2M PRN Opiate Reversal Phenol 1 spray 07/27/24 04:00 07/27/24 20:55 Phenol/Sod Pheno [place] M[place] (*Bkc) MUCOUS MEM 1 spray PRN PRN Administration Sore Throat Prochlorperazine Edisylate 10 mg 08/01/24 10:14 08/01/24 13:48 Prochlorperazine Edisylate 10 Mg/2 Ml Vial IV PUSH 10 mg Q6H PRN Administration Nausea And Vomiting Sodium Chloride 10 ml 07/25/24 14:00 08/02/24 07:02 Central Line Flush IV PUSH 10 ml Q8HR EMILE Administration Sodium Chloride 10 ml 07/25/24 11:31 Central Line Flush IV PUSH PRN PRN with TPN bag changes Sodium Chloride 20 ml 07/25/24 11:31 Central Line Flush IV PUSH PRN PRN after blood draws Thiamine HCl 100 mg 07/26/24 09:00 08/02/24 08:17 Thiamine Hcl 200 Mg/2 Ml Vial IV PUSH 100 mg DAILY EMILE Administration Radiology Results: ITS Impressions Feeding Tube Manipulation 07/28/24 09:51 IMPRESSION: 1: NG tube tip in the stomach. Abdomen Fluoroscopy 07/28/24 15:49 IMPRESSION: 1. Nasogastric tube tip in the stomach. 2. Dilated small bowel, likely adynamic ileus. 3. Airspace opacities at the lung bases, left worse than right, consistent with atelectasis versus pneumonia. Abdomen/Pelvis CT 07/31/24 10:04 IMPRESSION: 1. Postoperative changes in the abdomen and pelvis with a couple likely small bowel anastomoses. 2. Significant decrease in the previously seen wall thickening of the small bowel with a few mildly dilated loops of small bowel without a discrete transition point and would favor ileus over obstruction. 3. Few scattered foci of free intraperineal gas along with several new loculated fluid collections in the abdomen and pelvis suspicious for abscesses. The persistence of free gas approximately 3 weeks post surgery suggests possible residual bowel perforation or anastomotic breakdown. Could consider repeat CT with water-soluble oral contrast material. 4. Significant improvement in likely resolution of the prior pneumonia in the bilateral lower lobes with atelectasis with volume loss in the bilateral lower lobes. Residual pneumonia in the collapsed portion of the lungs cannot be optimally excluded. 5. Resolution of the prior small right pleural effusion and significant decrease in size of a now very small left pleural effusion. 6. Cardiomegaly. Chest X-Ray 08/01/24 08:05 IMPRESSION: No acute cardiopulmonary pathology. Left PICC line with the tip overlying superior vena cava. Possible kink in the left axillary area. Catheter Placement CT 08/01/24 13:56 IMPRESSION: 1. Successful CT-guided pelvic abscess drainage. 2. 15 mL fluid was sent for aerobic and anaerobic cultures. 3. The catheter will be managed by Dr. Mccann. Fluoroscopy 08/01/24 14:03 IMPRESSION: 1. Repositioning of a left upper extremity peripherally inserted central venous catheter with resolution of the prior kink which was located in the region of the axillary vein with distal tip currently at the superior cavoatrial junction. Abdomen X-Ray 08/02/24 07:59 Impression: NG tube in place. Nonspecific bowel gas pattern. Labs Labs: Laboratory Results - last 24 hr 08/01/24 08/01/24 08/01/24 13:17 14:55 18:16 WBC RBC Hgb Hct MCV MCH MCHC RDW Plt Count MPV Immature Gran % (Auto) Neut % (Auto) Lymph % (Auto) [place] % (Auto) Eos % (Auto) Baso % (Auto) Lymph # (Auto) [place] # (Auto) Eos # (Auto) Baso # (Auto) Abs Immat Gran (auto) Absolute Neuts (auto) Absolute Nucleated RBC Nucleated RBC % Sodium Potassium Chloride Carbon Dioxide Anion Gap BUN Creatinine Estim Creat Clear Calc Estimated GFR Glucose POC Capillary Glucose 96 92 Calcium C-Reactive Protein Triglycerides 166 H 08/02/24 08/02/24 08/02/24 01:02 05:16 07:10 WBC 9.5 RBC 3.73 L Hgb 11.3 L Hct 34.2 L MCV 91.7 MCH 30.3 MCHC 33.0 RDW 12.0 Plt Count 350 MPV 9.7 Immature Gran % (Auto) 5.3 H Neut % (Auto) 66.5 Lymph % (Auto) 12.7 L [place] % (Auto) 7.8 Eos % (Auto) 7.2 H Baso % (Auto) 0.5 Lymph # (Auto) 1.21 [place] # (Auto) 0.7 H Eos # (Auto) 0.7 H Baso # (Auto) 0.1 Abs Immat Gran (auto) 0.50 H Absolute Neuts (auto) 6.3 Absolute Nucleated RBC 0.000 Nucleated RBC % 0.0 Sodium 138 Potassium 4.0 Chloride 103 Carbon Dioxide 30 Anion Gap 5 BUN 21 H Creatinine 0.80 Estim Creat Clear Calc 132 Estimated GFR > 60 Glucose 119 H POC Capillary Glucose 119 H 104 Calcium 9.3 C-Reactive Protein 3.8 H Triglycerides CRP only mildly elevated at 3.8 Imaging Attestation: I personally reviewed and interpreted this imaging study as follows: (Plain films of the abdomen) My impression: NG tube in the stomach. No evidence of small-bowel obstruction Radiologist's impression: Same
[2024-08-02 12:29] LABS: Glucose Point of Care 104 mg/dl (65-105)
[2024-08-02] MEDS: PROCHLORPERAZINE EDISYLATE 10 MG/2 ML VIAL IV PUSH ×2 (12:36→18:54)
[2024-08-02] MEDS: FAT EMULSIONS IV 20% 250 ML 20.8 ML IVPB (14:22)
[2024-08-02 18:04] LABS: Glucose Point of Care 106 mg/dl (65-105)
[2024-08-02 20:30] LABS: Glucose Point of Care 117 mg/dl (65-105)
[2024-08-02] MEDS: AMITRIPTYLINE HCL 25 MG TABLET PO (20:45)
[2024-08-02] MEDS: busPIRone HCL 5 MG TABLET 15 MG BY MOUTH (20:45)
[2024-08-03] VITALS (8 sets, daily range): BP systolic 120–140; BP diastolic 59–87; PULSE 70–87; RESP 14–20; TEMP 35.8–36.8; O2SAT 99–100
[2024-08-03] MEDS: HYDROmorphone HCL INJ (*CRX) 1 MG/ML SYR IV PUSH ×4 (00:09→06:52)
[2024-08-03 00:10] LABS: Glucose Point of Care 120 mg/dl (65-105)
[2024-08-03] MEDS: metroNIDAZOLE 500 MG/ISO 100ML 500 MG/100 ML BAG 100 MG IVPB ×4 (02:05→21:22)
[2024-08-03] MEDS: IBUPROFEN IV 800 MG/200 ML 800 MG/200 ML BAG 400 MG IVPB ×2 (05:33→22:57)
[2024-08-03] MEDS: KCL 40 MEQ/D5/0.9% SOD CHL 1,000 ML 40 ML IV CONT (05:36)
[2024-08-03 06:00] LABS: Glucose Point of Care 89 mg/dl (65-105)
[2024-08-03] MEDS: CENTRAL LINE FLUSH 10 ML IV PUSH ×3 (06:06→21:26)
[2024-08-03 06:16] LABS: Basophils Absolute Auto 0.1 K/mm3 (0.0-0.1); Basophils Percent Auto 0.6 % (0.2-1.2); Eosinophils Absolute Auto 0.7 K/mm3 (0-0.3); Eosinophils Percent Auto 5.8 % (0-4.4); Hematocrit 34.3 % (42.0-52.0); Hemoglobin 11.2 g/dL (14.0-18.0); Immature Granulocyte Absolute 0.55 K/mm3 (0.00-0.031); Immature Granulocyte Percent A 4.7 % (0-0.5); Lymphocytes Absolute Auto 1.36 K/mm3 (0.9-3.2); Lymphocytes Percent Auto 11.5 % (18.3-44.2); Mean Corpuscular HGB Conc 32.7 g/dl (32-36); Mean Corpuscular Hemoglobin 29.9 pg (26-34); Mean Corpuscular Volume 91.7 fl (80-100); Mean Platelet Volume 9.9 fl (7.4-10.4); Monocytes Percent Auto 8.1 % (2.6-8.5); Neutrophils Absolute Auto 8.2 K/mm3 (1.3-6.7); Neutrophils Percent Auto 69.3 % (45.5-73.1); Platelet Count Result 383 k/mm3 (150-375); Red Blood Count 3.74 M/mm3 (4.6-6.20); Red Cell Distribution Width 12.3 % (11.5-14.5); White Blood Count 11.8 K/mm3 (4.5-10.0)
[2024-08-03 06:24] LABS: Alanine Aminotransferase 39 U/L (6-50); Albumin Level 3.2 g/dL (3.5-5.1); Alkaline Phosphatase 99 U/L (38-126); Anion Gap 5 mmol/L (4-12); Aspartate Amino Transferase 35 U/L (17-59); Bilirubin,Total 0.4 mg/dL (0.2-1.3); Blood Urea Nitrogen 23 mg/dL (9-20); Carbon Dioxide 29 mmol/L (22-30); Chloride 101 mmol/L (98-107); Estimated CRCL calculation 132 ml/min; Estimated Glomerular Filt Rate > 60; Glucose 95 mg/dL (65-110); Magnesium 1.8 mg/dL (1.6-2.3); Sodium 135 mmol/L (137-145)
[2024-08-03] MEDS: THIAMINE HCL 200 MG/2 ML VIAL 100 MG IV PUSH (08:01)
[2024-08-03] MEDS: buPROPion HCL XL (24 HR) 150 MG TABCR 300 MG PO (08:02)
[2024-08-03] MEDS: ENOXAPARIN 40 MG/0.4 ML SYRINGE SUB-Q (08:02)
[2024-08-03] MEDS: busPIRone HCL 10 MG TABLET 30 MG BY MOUTH (08:02)
[2024-08-03] MEDS: FAMOTIDINE 20 MG/2 ML VIAL IV PUSH (08:03)
--- NOTE | 2024-08-03 08:20 | PM.PNGS ---
Progress Note: A&P Assessment and Plan (1) Pelvic abscess in male: Code(s): K65.1 - Peritoneal abscess Status: Acute Assessment and Plan: No organism seen on Gram stain, no growth so far. May have just been a fluid collection and not an abscess. Continue to monitor. (2) H/O lysis of adhesions: Code(s): Z98.890 - Other specified postprocedural states Status: Acute Assessment and Plan: NG tube has been clamped and patient tolerated clear liquids. He has had about 3 bowel movements since his contrast study yesterday. Will go ahead and DC NG tube and try full liquids. Probably change wound VAC tomorrow. 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: Code(s): K56.50 - Intestinal adhesions [bands], unspecified as to partial versus complete obstruction Status: Acute Assessment and Plan: Extensive adhesiolysis performed 07/24/2024 (4) Perioperative dehiscence of abdominal wound with evisceration: Qualifiers: Encounter type: subsequent encounter Qualified Code(s): T81.321D - Disruption or dehiscence of closure of internal operation (surgical) wound of abdominal wall muscle or fascia, subsequent encounter Code(s): T81.321A - Disruption or dehiscence of closure of internal operation (surgical) wound of abdominal wall muscle or fascia, initial encounter Status: Acute Assessment and Plan: Wound VAC in place and working well. Probably changed tomorrow. (5) Protein-calorie malnutrition, moderate: Code(s): E44.0 - Moderate protein-calorie malnutrition Status: Acute Assessment and Plan: Continue TPN until eating well. Subjective Subjective Date/Time Seen: 08/03/24 08:20 Post Op day: #10 Patient reports: feels better, pain is less, tolerating liquids well, voiding w/o difficulty, bowel movement and afebrile Exam Const: General: comfortable and no acute distress Orientation/consciousness: patient oriented x3 GI: Inspection: incision (Wound VAC in place, no output pigtail catheter) GI Palp: Yes Soft to palpation, Yes Tenderness to palpation present (GI) (Incisional), No Guarding due to palpation present (GI) and No Rebound tenderness present Auscultation: normal bowel sounds Neuro: General: patient oriented x3 and no focal motor deficits Extrem: General: no calf tenderness and no edema Psych: Affect: normal affect Insight: Good insight present (Psych) Judgement: Good judgement present (Psych) Objective Data Vital Signs Vital Signs: Vital Signs - 24 hr 08/02/24 09:21 08/02/24 12:00 08/02/24 16:00 Temperature 36.3 C L 36.1 C L Pulse Rate 95 98 Respiratory Rate 20 18 18 Blood Pressure 127/91 H 121/91 H Pulse Oximetry 100 100 99 Oxygen Delivery Room Air 08/02/24 20:00 08/02/24 20:21 08/02/24 23:31 Temperature 36.5 C 36.8 C Pulse Rate 88 177 H Respiratory Rate 18 18 Blood Pressure 122/83 129/84 Pulse Oximetry 100 100 Oxygen Delivery Room Air 08/03/24 00:00 08/03/24 04:00 08/03/24 07:58 Temperature 36.8 C 36.6 C 35.8 C L Pulse Rate 87 87 80 Respiratory Rate 18 18 16 Blood Pressure 130/85 135/87 120/67 Pulse Oximetry 100 100 100 Oxygen Delivery Intake/Output Intake/Output: Intake & Output 07/31/24 08/01/24 08/02/24 08/03/24 23:59 23:59 23:59 23:59 Intake Total 2452.5 3905.0 4131.8 1048.7 Output Total 2350 1700 2400 200 Balance 102.5 2205.0 1731.8 848.7 Meds/Results Medications: Active Medications Generic Name Dose Route Start Last Admin Trade Name Freq PRN Reason Stop Dose Admin Alteplase, Recombinant 2 mg 07/31/24 11:55 07/31/24 16:47 Alteplase 2 Mg Vial (Cathflo) IV PUSH 2 mg ONCE PRN Administration Line Occlusion Alteplase, Recombinant 2 mg 07/31/24 16:02 Alteplase 2 Mg Vial (Cathflo) IV PUSH ONCE PRN Line Occlusion Amitriptyline HCl 25 mg 07/25/24 21:00 08/02/24 20:45 Amitriptyline Hcl 25 Mg Tablet PO 25 mg HS EMILE Administration Benzocaine 1 lozenge 07/26/24 09:56 07/27/24 20:55 Benzocaine/Menthol (*Bkc) 18 Ea Lozenge PO 1 lozenge PRN PRN Administration Sore Throat Bupropion HCl 300 mg 07/26/24 09:00 08/03/24 08:02 Bupropion Hcl Xl (24 Hr) 150 Mg Tabcr PO 300 mg DAILY EMILE Administration Buspirone HCl 30 mg 07/28/24 10:20 08/03/24 08:02 Buspirone Hcl 10 Mg Tablet BY MOUTH 30 mg DAILY EMILE Administration Buspirone HCl 15 mg 07/28/24 21:00 08/02/24 20:45 Buspirone Hcl 5 Mg Tablet BY MOUTH 15 mg HS EMILE Administration Dextrose 12.5 gm 07/25/24 14:35 Dextrose 50% 25 Gm/50 Ml Syringe IV PUSH PRN PRN Hypoglycemia Protocol Enoxaparin Sodium 40 mg 07/25/24 09:00 08/03/24 08:02 Enoxaparin 40 Mg/0.4 Ml Syringe SUB-Q 40 mg DAILY EMILE Administration Glucagon 1 mg 07/25/24 14:35 Glucagon For Inj 1 Mg Vial IM PRN PRN Hypoglycemia Protocol Glucose 15 gm 07/25/24 14:35 Glucose Oral Gel 15 Gm Of Glucse In 37.5 Gm Tube PO PRN PRN Hypoglycemia Protocol Hydromorphone HCl 2 mg 07/24/24 20:38 07/25/24 06:10 Hydromorphone Hcl Inj (*Crx) 1 Mg/Ml Syr IV PUSH 2 mg Q2H PRN Administration Breakthrough Pain Rated 7-10 or NPO Hydromorphone HCl 1 mg 07/24/24 20:38 08/03/24 06:52 Hydromorphone Hcl Inj (*Crx) 1 Mg/Ml Syr IV PUSH 1 mg Q2H PRN Administration Breakthrough Pain Rated 4-6 or NPO Dextrose 1,000 mls @ 50 mls/hr 07/25/24 14:35 Dextrose 10% IV CONT .Q20H PRN if PN is interrupted Multivitamins 1.25 ml/ 1,002.5 mls @ 80 mls/hr 07/25/24 14:35 08/02/24 22:02 Multivitamins 1.25 ml/ Amino IV CONT 80 mls/hr Acids/Electrolytes/Dextrose .[id number] EMILE Administration Protocol Fat Emulsion Intravenous 250 mls @ 20.833 mls/hr 07/25/24 14:35 08/02/24 14:22 Lipids 20% IVPB 20.8 mls/hr Q24H EMILE Administration Dextrose 1,000 mls @ 100 mls/hr 07/25/24 14:35 Dextrose 5% 1,000 Ml IVPB PRN PRN Hypoglycemia Protocol Potassium Chloride/Dextrose/Sod Cl 1,000 mls @ 40 mls/hr 07/27/24 06:50 08/03/24 08:04 Kcl 40 Meq/D5ns IV CONT 0 mls/hr .Q24H EMILE Infusion Ibuprofen 800 mg in 200 mls @ 400 mls/hr 07/28/24 10:33 08/03/24 06:03 Caldolor 800 Mg/200 Ml IVPB Infused Q6H PRN Infusion Pain Rated 1-3 Levofloxacin/Dextrose 750 mg in 150 mls @ 100 mls/hr 08/01/24 09:00 08/02/24 10:37 Levaquin 750 Mg/D5w 150 Ml IVPB Infused Q24H EMILE Infusion Metronidazole 500 mg in 100 mls @ 100 mls/hr 08/01/24 14:00 08/03/24 08:03 Flagyl 500 Mg/Iso Soln 100 Ml IVPB 100 mls/hr Q6H EMILE Administration Insulin Aspart 3 - 6 units 07/25/24 18:00 08/03/24 06:27 Insulin Aspart (*Bkc) 100 Units/Ml SUB-Q Not Given Q6HR [facility] Protocol Lorazepam 0.5 mg 07/25/24 19:49 08/02/24 22:04 Lorazepam Inj (*Crx) 2 Mg/Ml Vial IV PUSH 0.5 mg Q6H PRN Administration Anxiety Lorazepam 1 mg 07/25/24 22:42 Lorazepam Inj (*Crx) 2 Mg/Ml Vial IV PUSH Q2H PRN CIWA 8-15 Lorazepam 2 mg 07/25/24 22:42 Lorazepam Inj (*Crx) 2 Mg/Ml Vial IV PUSH Q2H PRN CIWA > 15 Naloxone HCl 0.1 mg 07/24/24 20:38 Naloxone Hcl 0.4 Mg/Ml Vial IV PUSH Q2M PRN Opiate Reversal Phenol 1 spray 07/27/24 04:00 07/27/24 20:55 Phenol/Sod Pheno [place] Mendez (*Bkc) MUCOUS MEM 1 spray PRN PRN Administration Sore Throat Prochlorperazine Edisylate 10 mg 08/01/24 10:14 08/02/24 18:54 Prochlorperazine Edisylate 10 Mg/2 Ml Vial IV PUSH 10 mg Q6H PRN Administration Nausea And Vomiting Sodium Chloride 10 ml 07/25/24 14:00 08/03/24 06:06 Central Line Flush IV PUSH 10 ml Q8HR EMILE Administration Sodium Chloride 10 ml 07/25/24 11:31 Central Line Flush IV PUSH PRN PRN with TPN bag changes Sodium Chloride 20 ml 07/25/24 11:31 Central Line Flush IV PUSH PRN PRN after blood draws Thiamine HCl 100 mg 07/26/24 09:00 08/03/24 08:01 Thiamine Hcl 200 Mg/2 Ml Vial IV PUSH 100 mg DAILY EMILE Administration Radiology Results: ITS Impressions Feeding Tube Manipulation 07/28/24 09:51 IMPRESSION: 1: NG tube tip in the stomach. Abdomen Fluoroscopy 07/28/24 15:49 IMPRESSION: 1. Nasogastric tube tip in the stomach. 2. Dilated small bowel, likely adynamic ileus. 3. Airspace opacities at the lung bases, left worse than right, consistent with atelectasis versus pneumonia. Abdomen/Pelvis CT 07/31/24 10:04 IMPRESSION: 1. Postoperative changes in the abdomen and pelvis with a couple likely small bowel anastomoses. 2. Significant decrease in the previously seen wall thickening of the small bowel with a few mildly dilated loops of small bowel without a discrete transition point and would favor ileus over obstruction. 3. Few scattered foci of free intraperineal gas along with several new loculated fluid collections in the abdomen and pelvis suspicious for abscesses. The persistence of free gas approximately 3 weeks post surgery suggests possible residual bowel perforation or anastomotic breakdown. Could consider repeat CT with water-soluble oral contrast material. 4. Significant improvement in likely resolution of the prior pneumonia in the bilateral lower lobes with atelectasis with volume loss in the bilateral lower lobes. Residual pneumonia in the collapsed portion of the lungs cannot be optimally excluded. 5. Resolution of the prior small right pleural effusion and significant decrease in size of a now very small left pleural effusion. 6. Cardiomegaly. Chest X-Ray 08/01/24 08:05 IMPRESSION: No acute cardiopulmonary pathology. Left PICC line with the tip overlying superior vena cava. Possible kink in the left axillary area. Catheter Placement CT 08/01/24 13:56 IMPRESSION: 1. Successful CT-guided pelvic abscess drainage. 2. 15 mL fluid was sent for aerobic and anaerobic cultures. 3. The catheter will be managed by Dr. Mccann. Fluoroscopy 08/01/24 14:03 IMPRESSION: 1. Repositioning of a left upper extremity peripherally inserted central venous catheter with resolution of the prior kink which was located in the region of the axillary vein with distal tip currently at the superior cavoatrial junction. Abdomen X-Ray 08/02/24 07:59 Impression: NG tube in place. Nonspecific bowel gas pattern. Small Bowel X-Ray 08/02/24 14:10 IMPRESSION: 1. No persistently dilated loops of small bowel to suggest obstruction with normal transit time to the colon of 2-2.75 hours.. Labs Labs: Laboratory Results - last 24 hr 08/02/24 08/02/24 08/02/24 12:26 17:57 20:23 WBC RBC Hgb Hct MCV MCH MCHC RDW Plt Count MPV Immature Gran % (Auto) Neut % (Auto) Lymph % (Auto) [place] % (Auto) Eos % (Auto) Baso % (Auto) Lymph # (Auto) [place] # (Auto) Eos # (Auto) Baso # (Auto) Abs Immat Gran (auto) Absolute Neuts (auto) Absolute Nucleated RBC Nucleated RBC % Sodium Potassium Chloride Carbon Dioxide Anion Gap BUN Creatinine Estim Creat Clear Calc Estimated GFR Glucose POC Capillary Glucose 104 106 H 117 H Calcium Magnesium Total Bilirubin AST ALT Alkaline Phosphatase Total Protein Albumin 08/03/24 08/03/24 08/03/24 00:05 05:57 06:04 WBC 11.8 H RBC 3.74 L Hgb 11.2 L Hct 34.3 L MCV 91.7 MCH 29.9 MCHC 32.7 RDW 12.3 Plt Count 383 H MPV 9.9 Immature Gran % (Auto) 4.7 H Neut % (Auto) 69.3 Lymph % (Auto) 11.5 L [place] % (Auto) 8.1 Eos % (Auto) 5.8 H Baso % (Auto) 0.6 Lymph # (Auto) 1.36 [place] # (Auto) 1.0 H Eos # (Auto) 0.7 H Baso # (Auto) 0.1 Abs Immat Gran (auto) 0.55 H Absolute Neuts (auto) 8.2 H Absolute Nucleated RBC 0.000 Nucleated RBC % 0.0 Sodium 135 L Potassium 4.0 Chloride 101 Carbon Dioxide 29 Anion Gap 5 BUN 23 H Creatinine 0.80 Estim Creat Clear Calc 132 Estimated GFR > 60 Glucose 95 POC Capillary Glucose 120 H 89 Calcium 9.0 Magnesium 1.8 Total Bilirubin 0.4 AST 35 ALT 39 Alkaline Phosphatase 99 Total Protein 7.0 Albumin 3.2 L Imaging Attestation: I personally reviewed and interpreted this imaging study as follows: (Small-bowel series with water-soluble contrast) My impression: Slow passage of contrast but no bowel dilatation, no obstruction Radiologist's impression: Transit time over 2 hours, read as normal.
[2024-08-03] MEDS: PANTOPRAZOLE 40 MG TABLET PO (09:14)
[2024-08-03] MEDS: oxyCODONE/ACETAMINOPHEN (*CRX) 5-325 MG TABLET 1 TABLET PO ×4 (09:17→21:22)
[2024-08-03] MEDS: levoFLOXacin 750 MG/D5W 150 ML 750 MG/150 ML BAG 100 MG IVPB (09:18)
[2024-08-03] MEDS: LORazepam INJ (*CRX) 2 MG/ML VIAL 0.5 MG IV PUSH ×2 (10:23→21:21)
[2024-08-03] MEDS: AMINO ACIDS 5%/D15W/E-LYTES/CA 1,000 ML with MULTIVITAMINS-12 INJ VIAL 1 1.25 ML, MULTI... 80 ML IV CONT ×2 (10:27→23:42)
[2024-08-03 12:04] LABS: Glucose Point of Care 85 mg/dl (65-105)
[2024-08-03] MEDS: FAT EMULSIONS IV 20% 250 ML 20.8 ML IVPB (13:44)
[2024-08-03] MEDS: CENTRAL LINE FLUSH 20 ML IV PUSH (15:09)
[2024-08-03 15:43] LABS: Triglycerides 140 mg/dL (<150)
[2024-08-03 17:05] LABS: Glucose Point of Care 84 mg/dl (65-105)
[2024-08-03] MEDS: PROCHLORPERAZINE EDISYLATE 10 MG/2 ML VIAL IV PUSH ×2 (17:24→23:47)
[2024-08-03] MEDS: busPIRone HCL 5 MG TABLET 15 MG BY MOUTH (21:22)
[2024-08-03] MEDS: AMITRIPTYLINE HCL 25 MG TABLET PO (21:22)
[2024-08-03 23:39] LABS: Glucose Point of Care 118 mg/dl (65-105)
[2024-08-04] MEDS: metroNIDAZOLE 500 MG/ISO 100ML 500 MG/100 ML BAG 100 MG IVPB ×2 (01:37→08:57)
[2024-08-04] MEDS: oxyCODONE/ACETAMINOPHEN (*CRX) 5-325 MG TABLET 1 TABLET PO ×6 (03:17→23:34)
[2024-08-04] MEDS: LORazepam INJ (*CRX) 2 MG/ML VIAL 0.5 MG IV PUSH ×3 (03:21→23:33)
[2024-08-04 04:00] VITALS: BP 126/71; PULSE 82; RESP 20; TEMP 36.2; O2SAT 98
[2024-08-04] MEDS: CENTRAL LINE FLUSH 10 ML IV PUSH ×3 (05:17→23:36)
[2024-08-04 05:23] LABS: Basophils Absolute Auto 0.1 K/mm3 (0.0-0.1); Basophils Percent Auto 0.9 % (0.2-1.2); Eosinophils Absolute Auto 0.6 K/mm3 (0-0.3); Eosinophils Percent Auto 7.2 % (0-4.4); Hematocrit 33.3 % (42.0-52.0); Immature Granulocyte Absolute 0.49 K/mm3 (0.00-0.031); Immature Granulocyte Percent A 6.2 % (0-0.5); Lymphocytes Absolute Auto 1.36 K/mm3 (0.9-3.2); Lymphocytes Percent Auto 17.1 % (18.3-44.2); Mean Corpuscular Volume 90.7 fl (80-100); Mean Platelet Volume 9.9 fl (7.4-10.4); Monocytes Absolute Auto 0.6 K/mm3 (0.1-0.6); Monocytes Percent Auto 7.7 % (2.6-8.5); Neutrophils Absolute Auto 4.9 K/mm3 (1.3-6.7); Neutrophils Percent Auto 60.9 % (45.5-73.1); Platelet Count Result 382 k/mm3 (150-375); Red Blood Count 3.67 M/mm3 (4.6-6.20); Red Cell Distribution Width 12.3 % (11.5-14.5)
[2024-08-04 05:32] LABS: Anion Gap 4 mmol/L (4-12); Blood Urea Nitrogen 16 mg/dL (9-20); Carbon Dioxide 31 mmol/L (22-30); Chloride 103 mmol/L (98-107); Estimated CRCL calculation 132 ml/min; Estimated Glomerular Filt Rate > 60; Glucose 97 mg/dL (65-110); Potassium 3.8 mmol/L (3.4-5.0); Sodium 138 mmol/L (137-145)
[2024-08-04 06:21] LABS: Glucose Point of Care 118 mg/dl (65-105)
[2024-08-04 08:00] VITALS: BP 111/68; PULSE 82; RESP 16; TEMP 36; O2SAT 100
[2024-08-04] MEDS: ENOXAPARIN 40 MG/0.4 ML SYRINGE SUB-Q (08:56)
[2024-08-04] MEDS: PANTOPRAZOLE 40 MG TABLET PO (08:56)
[2024-08-04] MEDS: busPIRone HCL 10 MG TABLET 30 MG BY MOUTH (08:57)
[2024-08-04] MEDS: buPROPion HCL XL (24 HR) 150 MG TABCR 300 MG PO (08:57)
[2024-08-04] MEDS: PROCHLORPERAZINE EDISYLATE 10 MG/2 ML VIAL IV PUSH ×2 (08:57→15:11)
--- NOTE | 2024-08-04 10:51 | PM.PNGS ---
Progress Note: A&P Assessment and Plan (1) Pelvic abscess in male: Code(s): K65.1 - Peritoneal abscess Status: Ruled-out Assessment and Plan: Cultures show no bacteria and no growth a robotically. Just a few white cells noted which would be expected in a postop condition. Will discontinue pigtail catheter and stop IV antibiotics. Continue to monitor clinical condition as well as white blood cell count, vital signs. (2) H/O lysis of adhesions: Code(s): Z98.890 - Other specified postprocedural states Status: Acute Assessment and Plan: Although patient had nausea and does not feel E has a good appetite, he did take in 1290 cc orally yesterday on a full liquid diet. He is agreeable to trying a soft diet so will advanced to low-fiber. He is having bowel movements and has bowel sounds. Possibly his appetite is poor from the antibiotics or the potassium he has been receiving since he does take amitriptyline. Antibiotics and potassium both been stopped. Pigtail catheter to be removed today since there is no indication that this was an abscess. He will continue wound VAC care and TPN until eating better. If continuing to improve, may possibly go home on Wednesday with wound VAC care in the wound clinic Mondays and . Awaiting insurance approval on the wound VAC. 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: Code(s): K56.50 - Intestinal adhesions [bands], unspecified as to partial versus complete obstruction Status: Acute Assessment and Plan: Extensive adhesiolysis performed 07/24/2024 (4) Perioperative dehiscence of abdominal wound with evisceration: Qualifiers: Encounter type: subsequent encounter Qualified Code(s): T81.321D - Disruption or dehiscence of closure of internal operation (surgical) wound of abdominal wall muscle or fascia, subsequent encounter Code(s): T81.321A - Disruption or dehiscence of closure of internal operation (surgical) wound of abdominal wall muscle or fascia, initial encounter Status: Acute Assessment and Plan: Initial surgery was 07/06/2024 and this was performed due to bowel perforation from small-bowel obstruction. Small-bowel resection was performed and patient improved and was discharged. However he started vomiting at home and still waited a few days to come back. He came month scheduled to my office on 07/24 having noted some tissue from the upper aspect of his incision. Fascial dehiscence with evisceration was noted. This was due to vomiting and recurrent small-bowel obstruction. Following his surgery on 07/24/2024, he has had no evidence of recurrent evisceration but does have an open, healing wound with no evidence of fascial breakdown. He has retention sutures in place. (5) Protein-calorie malnutrition, moderate: Code(s): E44.0 - Moderate protein-calorie malnutrition Status: Acute Assessment and Plan: Advanced to low-fiber diet but continue TPN again today. Possibly discontinue over weekend depending on how he tolerates oral feeding. Subjective Subjective Date/Time Seen: 08/04/24 10:51 Post Op day: #11 Patient reports: no new complaints, pain is less, voiding w/o difficulty, bowel movement (Several bowel movements yesterday), nausea (Appetite is poor, nursing reports he took prochlorperazine for nause once) and afebrile Exam Const: General: cooperative, comfortable, no acute distress, alert, awake and thin Orientation/consciousness: No confusion GI: Inspection: non-distended, incision (Vac removed-wound filling in, slough at base, pink at edges) and scaphoid GI Palp: Yes Soft to palpation, Yes Tenderness to palpation present (GI) (Incisional, retention sutures), No Guarding due to palpation present (GI) and No Rebound tenderness present Auscultation: normal bowel sounds Neuro: General: patient oriented x3 and no focal motor deficits Extrem: General: no calf tenderness and no edema Psych: Affect: normal affect Attitude: cooperative Thought content: Yes Normal thought content present Insight: Good insight present (Psych) Judgement: Good judgement present (Psych) Objective Data Vital Signs Vital Signs: Vital Signs - 24 hr 08/03/24 11:50 08/03/24 16:00 08/03/24 20:00 Temperature 35.8 C L 36.5 C 36.0 C L Pulse Rate 79 70 76 Respiratory Rate 16 14 20 Blood Pressure 127/73 124/59 L 128/78 Pulse Oximetry 100 100 99 08/03/24 23:35 08/04/24 04:00 08/04/24 08:00 Temperature 36.1 C L 36.2 C L 36.0 C L Pulse Rate 74 82 82 Respiratory Rate 20 20 16 Blood Pressure 140/81 126/71 111/68 Pulse Oximetry 99 98 100 Intake/Output Intake/Output: Intake & Output 08/01/24 08/02/24 08/03/24 08/04/24 23:59 23:59 23:59 23:59 Intake Total 3905.0 4131.8 5139.2 650 Output Total 1700 3350 2850 500 Balance 2205.0 781.8 2289.2 150 Meds/Results Medications: Active Medications Generic Name Dose Route Start Last Admin Trade Name Freq PRN Reason Stop Dose Admin Alteplase, Recombinant 2 mg 07/31/24 11:55 07/31/24 16:47 Alteplase 2 Mg Vial (Cathflo) IV PUSH 2 mg ONCE PRN Administration Line Occlusion Alteplase, Recombinant 2 mg 07/31/24 16:02 Alteplase 2 Mg Vial (Cathflo) IV PUSH ONCE PRN Line Occlusion Amitriptyline HCl 25 mg 07/25/24 21:00 08/03/24 21:22 Amitriptyline Hcl 25 Mg Tablet PO 25 mg HS EMILE Administration Benzocaine 1 lozenge 07/26/24 09:56 07/27/24 20:55 Benzocaine/Menthol (*Bkc) 18 Ea Lozenge PO 1 lozenge PRN PRN Administration Sore Throat Bupropion HCl 300 mg 07/26/24 09:00 08/04/24 08:57 Bupropion Hcl Xl (24 Hr) 150 Mg Tabcr PO 300 mg DAILY EMILE Administration Buspirone HCl 30 mg 07/28/24 10:20 08/04/24 08:57 Buspirone Hcl 10 Mg Tablet BY MOUTH 30 mg DAILY EMILE Administration Buspirone HCl 15 mg 07/28/24 21:00 08/03/24 21:22 Buspirone Hcl 5 Mg Tablet BY MOUTH 15 mg HS EMILE Administration Dextrose 12.5 gm 07/25/24 14:35 Dextrose 50% 25 Gm/50 Ml Syringe IV PUSH PRN PRN Hypoglycemia Protocol Enoxaparin Sodium 40 mg 07/25/24 09:00 08/04/24 08:56 Enoxaparin 40 Mg/0.4 Ml Syringe SUB-Q 40 mg DAILY EMILE Administration Glucagon 1 mg 07/25/24 14:35 Glucagon For Inj 1 Mg Vial IM PRN PRN Hypoglycemia Protocol Glucose 15 gm 07/25/24 14:35 Glucose Oral Gel 15 Gm Of Glucse In 37.5 Gm Tube PO PRN PRN Hypoglycemia Protocol Dextrose 1,000 mls @ 50 mls/hr 07/25/24 14:35 Dextrose 10% IV CONT .Q20H PRN if PN is interrupted Multivitamins 1.25 ml/ 1,002.5 mls @ 80 mls/hr 07/25/24 14:35 08/03/24 23:42 Multivitamins 1.25 ml/ Amino IV CONT 80 mls/hr Acids/Electrolytes/Dextrose .[id number] EMILE Administration Protocol Fat Emulsion Intravenous 250 mls @ 20.833 mls/hr 07/25/24 14:35 08/04/24 01:46 Lipids 20% IVPB Infused Q24H EMILE Infusion Dextrose 1,000 mls @ 100 mls/hr 07/25/24 14:35 Dextrose 5% 1,000 Ml IVPB PRN PRN Hypoglycemia Protocol Ibuprofen 800 mg in 200 mls @ 400 mls/hr 07/28/24 10:33 08/03/24 23:27 Caldolor 800 Mg/200 Ml IVPB Infused Q6H PRN Infusion Pain Rated 1-3 Insulin Aspart 3 - 6 units 07/25/24 18:00 08/04/24 06:11 Insulin Aspart (*Bkc) 100 Units/Ml SUB-Q Not Given Q6HR [facility] Protocol Lorazepam 0.5 mg 07/25/24 19:49 08/04/24 03:21 Lorazepam Inj (*Crx) 2 Mg/Ml Vial IV PUSH 0.5 mg Q6H PRN Administration Anxiety Lorazepam 1 mg 07/25/24 22:42 Lorazepam Inj (*Crx) 2 Mg/Ml Vial IV PUSH Q2H PRN CIWA 8-15 Lorazepam 2 mg 07/25/24 22:42 Lorazepam Inj (*Crx) 2 Mg/Ml Vial IV PUSH Q2H PRN CIWA > 15 Miscellaneous Information 1 each 08/03/24 00:01 Lorazepam Will If Not Renewed On 08-04-24 XX 09/02/24 00:00 CLARIFY EMILE Naloxone HCl 0.1 mg 07/24/24 20:38 Naloxone Hcl 0.4 Mg/Ml Vial IV PUSH Q2M PRN Opiate Reversal Oxycodone/Acetaminophen 1 tablet 08/03/24 08:18 08/04/24 06:47 Oxycodone/Acetaminophen (*Crx) 5-325 Mg Tablet PO 1 tablet Q4H PRN Administration Pain Rated 4-6 Oxycodone/Acetaminophen 1 tab 08/03/24 08:18 Oxycodone/Acetaminophen (*Crx) 10-325 Mg Tablet PO Q6H PRN Pain Rated 7-10 Pantoprazole Sodium 40 mg 08/03/24 09:00 08/04/24 08:56 Pantoprazole 40 Mg Tablet PO 40 mg QAM EMILE Administration Phenol 1 spray 07/27/24 04:00 07/27/24 20:55 Phenol/Sod Pheno Lincoln Mendez (*Bkc) MUCOUS MEM 1 spray PRN PRN Administration Sore Throat Prochlorperazine Edisylate 10 mg 08/01/24 10:14 08/04/24 08:57 Prochlorperazine Edisylate 10 Mg/2 Ml Vial IV PUSH 10 mg Q6H PRN Administration Nausea And Vomiting Sodium Chloride 10 ml 07/25/24 14:00 08/04/24 05:17 Central Line Flush IV PUSH 10 ml Q8HR EMILE Administration Sodium Chloride 10 ml 07/25/24 11:31 Central Line Flush IV PUSH PRN PRN with TPN bag changes Sodium Chloride 20 ml 07/25/24 11:31 08/03/24 15:09 Central Line Flush IV PUSH 20 ml PRN PRN Administration after blood draws Radiology Results: ITS Impressions Feeding Tube Manipulation 07/28/24 09:51 IMPRESSION: 1: NG tube tip in the stomach. Abdomen Fluoroscopy 07/28/24 15:49 IMPRESSION: 1. Nasogastric tube tip in the stomach. 2. Dilated small bowel, likely adynamic ileus. 3. Airspace opacities at the lung bases, left worse than right, consistent with atelectasis versus pneumonia. Abdomen/Pelvis CT 07/31/24 10:04 IMPRESSION: 1. Postoperative changes in the abdomen and pelvis with a couple likely small bowel anastomoses. 2. Significant decrease in the previously seen wall thickening of the small bowel with a few mildly dilated loops of small bowel without a discrete transition point and would favor ileus over obstruction. 3. Few scattered foci of free intraperineal gas along with several new loculated fluid collections in the abdomen and pelvis suspicious for abscesses. The persistence of free gas approximately 3 weeks post surgery suggests possible residual bowel perforation or anastomotic breakdown. Could consider repeat CT with water-soluble oral contrast material. 4. Significant improvement in likely resolution of the prior pneumonia in the bilateral lower lobes with atelectasis with volume loss in the bilateral lower lobes. Residual pneumonia in the collapsed portion of the lungs cannot be optimally excluded. 5. Resolution of the prior small right pleural effusion and significant decrease in size of a now very small left pleural effusion. 6. Cardiomegaly. Chest X-Ray 08/01/24 08:05 IMPRESSION: No acute cardiopulmonary pathology. Left PICC line with the tip overlying superior vena cava. Possible kink in the left axillary area. Catheter Placement CT 08/01/24 13:56 IMPRESSION: 1. Successful CT-guided pelvic abscess drainage. 2. 15 mL fluid was sent for aerobic and anaerobic cultures. 3. The catheter will be managed by Dr. Mccann. Fluoroscopy 08/01/24 14:03 IMPRESSION: 1. Repositioning of a left upper extremity peripherally inserted central venous catheter with resolution of the prior kink which was located in the region of the axillary vein with distal tip currently at the superior cavoatrial junction. Abdomen X-Ray 08/02/24 07:59 Impression: NG tube in place. Nonspecific bowel gas pattern. Small Bowel X-Ray 08/02/24 14:10 IMPRESSION: 1. No persistently dilated loops of small bowel to suggest obstruction with normal transit time to the colon of 2-2.75 hours.. Labs Labs: Laboratory Results - last 24 hr 08/03/24 08/03/24 08/03/24 12:02 15:03 17:02 WBC RBC Hgb Hct MCV MCH MCHC RDW Plt Count MPV Immature Gran % (Auto) Neut % (Auto) Lymph % (Auto) [place] % (Auto) Eos % (Auto) Baso % (Auto) Lymph # (Auto) [place] # (Auto) Eos # (Auto) Baso # (Auto) Abs Immat Gran (auto) Absolute Neuts (auto) Absolute Nucleated RBC Nucleated RBC % Sodium Potassium Chloride Carbon Dioxide Anion Gap BUN Creatinine Estim Creat Clear Calc Estimated GFR Glucose POC Capillary Glucose 85 84 Calcium Triglycerides 140 08/03/24 08/04/24 08/04/24 23:31 05:15 05:16 WBC 8.0 RBC 3.67 L Hgb 11.0 L Hct 33.3 L MCV 90.7 MCH 30.0 MCHC 33.0 RDW 12.3 Plt Count 382 H MPV 9.9 Immature Gran % (Auto) 6.2 H Neut % (Auto) 60.9 Lymph % (Auto) 17.1 L [place] % (Auto) 7.7 Eos % (Auto) 7.2 H Baso % (Auto) 0.9 Lymph # (Auto) 1.36 [place] # (Auto) 0.6 Eos # (Auto) 0.6 H Baso # (Auto) 0.1 Abs Immat Gran (auto) 0.49 H Absolute Neuts (auto) 4.9 Absolute Nucleated RBC 0.000 Nucleated RBC % 0.0 Sodium 138 Potassium 3.8 Chloride 103 Carbon Dioxide 31 H Anion Gap 4 BUN 16 Creatinine 0.80 Estim Creat Clear Calc 132 Estimated GFR > 60 Glucose 97 POC Capillary Glucose 118 H Calcium 9.0 Triglycerides 08/04/24 06:13 WBC RBC Hgb Hct MCV MCH MCHC RDW Plt Count MPV Immature Gran % (Auto) Neut % (Auto) Lymph % (Auto) [place] % (Auto) Eos % (Auto) Baso % (Auto) Lymph # (Auto) [place] # (Auto) Eos # (Auto) Baso # (Auto) Abs Immat Gran (auto) Absolute Neuts (auto) Absolute Nucleated RBC Nucleated RBC % Sodium Potassium Chloride Carbon Dioxide Anion Gap BUN Creatinine Estim Creat Clear Calc Estimated GFR Glucose POC Capillary Glucose 118 H Calcium Triglycerides
--- NOTE | 2024-08-04 11:00 | PC.NURSE ---
pt returned to room from drain removal
--- NOTE | 2024-08-04 11:10 | PC.NURSE ---
pt taken down for drain removal
[2024-08-04 12:00] VITALS: BP 134/80; PULSE 86; RESP 16; TEMP 36.7; O2SAT 99
--- NOTE | 2024-08-04 12:02 | PCNFU ---
Nutrition Follow-Up Complete: Altered GI function as related to abd wound dehiscence as evidenced by NPO. Goal: Meet estimated nutritional needs. Patient is progressing towards goal. We will continue current goal. Pt current nutrition is Clinimix E 5/15 at 80 ml/hr with Low Fiber diet. Last recorded weight is 94.9 kg. Bowel Motility: +BM reported 08/03 Labs Reviewed: Hgb 11.0, Hct 33.3 Meds Noted:Clinimix E at 80 ml/hr with 20% Lipid Emulsion, Thiamine, Protonix, NovoLog, Lovenox. Skin: wound vac is noted but not pressure ulcers. Additional Notes: Patient has NGT removed. Diet orders has advanced to Low Fiber diet. Patient refused breakfast today, 10-20% with liquids. TPN continues providing 1863 kcal/96 gm protein. PO intake encouraged. Surgery reporting plan to hopefully wean from TPN over the weekend. Agree with diet orders. Will monitor weight, labs, skin, diet orders, meds every 3 days.
[2024-08-04 12:07] LABS: Glucose Point of Care 81 mg/dl (65-105)
[2024-08-04] MEDS: FAT EMULSIONS IV 20% 250 ML 20.8 ML IVPB (13:53)
[2024-08-04] MEDS: AMINO ACIDS 5%/D15W/E-LYTES/CA 1,000 ML with MULTIVITAMINS-12 INJ VIAL 1 1.25 ML, MULTI... 80 ML IV CONT (13:54)
[2024-08-04 16:00] VITALS: BP 132/83; PULSE 94; RESP 16; TEMP 36.7; O2SAT 100
[2024-08-04 18:32] LABS: Glucose Point of Care 96 mg/dl (65-105)
[2024-08-04 20:00] VITALS: BP 137/93; PULSE 85; RESP 16; TEMP 36.2; O2SAT 100
[2024-08-04] MEDS: busPIRone HCL 5 MG TABLET 15 MG BY MOUTH (20:17)
[2024-08-04] MEDS: AMITRIPTYLINE HCL 25 MG TABLET PO (20:17)
[2024-08-04] MEDS: IBUPROFEN IV 800 MG/200 ML 800 MG/200 ML BAG 400 MG IVPB (21:18)
[2024-08-04 23:55] VITALS: BP 126/81; PULSE 81; RESP 16; TEMP 36.2; O2SAT 98
[2024-08-05 00:01] LABS: Glucose Point of Care 116 mg/dl (65-105)
[2024-08-05] MEDS: AMINO ACIDS 5%/D15W/E-LYTES/CA 1,000 ML with MULTIVITAMINS-12 INJ VIAL 1 1.25 ML, MULTI... 80 ML IV CONT (03:49)
[2024-08-05] MEDS: oxyCODONE/ACETAMINOPHEN (*CRX) 5-325 MG TABLET 1 TABLET PO ×5 (03:58→21:38)
[2024-08-05 04:00] VITALS: BP 126/77; PULSE 78; RESP 20; TEMP 36.2; O2SAT 100
[2024-08-05] MEDS: FAT EMULSIONS IV 20% 250 ML 20.8 ML IVPB (04:03)
[2024-08-05 05:59] LABS: Glucose Point of Care 135 mg/dl (65-105)
[2024-08-05] MEDS: CENTRAL LINE FLUSH 10 ML IV PUSH ×3 (06:00→20:39)
[2024-08-05] MEDS: LORazepam INJ (*CRX) 2 MG/ML VIAL 0.5 MG IV PUSH ×3 (06:01→19:31)
[2024-08-05 06:02] LABS: Basophils Absolute Auto 0.1 K/mm3 (0.0-0.1); Basophils Percent Auto 0.7 % (0.2-1.2); Eosinophils Absolute Auto 0.7 K/mm3 (0-0.3); Eosinophils Percent Auto 8.2 % (0-4.4); Hematocrit 35.1 % (42.0-52.0); Hemoglobin 11.2 g/dL (14.0-18.0); Immature Granulocyte Absolute 0.39 K/mm3 (0.00-0.031); Immature Granulocyte Percent A 4.5 % (0-0.5); Lymphocytes Percent Auto 18.3 % (18.3-44.2); Mean Corpuscular HGB Conc 31.9 g/dl (32-36); Mean Corpuscular Hemoglobin 29.3 pg (26-34); Mean Corpuscular Volume 91.9 fl (80-100); Monocytes Absolute Auto 0.6 K/mm3 (0.1-0.6); Monocytes Percent Auto 6.6 % (2.6-8.5); Neutrophils Absolute Auto 5.4 K/mm3 (1.3-6.7); Neutrophils Percent Auto 61.7 % (45.5-73.1); Platelet Count Result 432 k/mm3 (150-375); Red Blood Count 3.82 M/mm3 (4.6-6.20); Red Cell Distribution Width 12.5 % (11.5-14.5); White Blood Count 8.8 K/mm3 (4.5-10.0)
[2024-08-05 06:13] LABS: Anion Gap 2 mmol/L (4-12); Blood Urea Nitrogen 14 mg/dL (9-20); Calcium 9.2 mg/dL (8.4-10.2); Carbon Dioxide 30 mmol/L (22-30); Chloride 104 mmol/L (98-107); Estimated CRCL calculation 149 ml/min; Estimated Glomerular Filt Rate > 60; Glucose 117 mg/dL (65-110); Potassium 3.9 mmol/L (3.4-5.0); Sodium 136 mmol/L (137-145)
[2024-08-05 07:02] LABS: CRP 0.8 mg/dL (<1.0)
[2024-08-05] MEDS: buPROPion HCL XL (24 HR) 150 MG TABCR 300 MG PO (08:13)
[2024-08-05] MEDS: busPIRone HCL 10 MG TABLET 30 MG BY MOUTH (08:13)
[2024-08-05] MEDS: PANTOPRAZOLE 40 MG TABLET PO (08:13)
[2024-08-05] MEDS: ENOXAPARIN 40 MG/0.4 ML SYRINGE SUB-Q (08:14)
[2024-08-05 10:00] VITALS: BP 125/74; PULSE 79; RESP 12; TEMP 36.5; O2SAT 100
--- NOTE | 2024-08-05 10:53 | P.PNGS_ITS ---
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: Code(s): K56.50 - Intestinal adhesions [bands], unspecified as to partial versus complete obstruction Status: Acute Assessment and Plan: Extensive adhesiolysis performed 07/24/2024 (4) Perioperative dehiscence of abdominal wound with evisceration: Qualifiers: Encounter type: subsequent encounter Qualified Code(s): T81.321D - Disruption or dehiscence of closure of internal operation (surgical) wound of abdominal wall muscle or fascia, subsequent encounter Code(s): T81.321A - Disruption or dehiscence of closure of internal operation (surgical) wound of abdominal wall muscle or fascia, initial encounter Status: Acute Assessment and Plan: * Wound vac in place. Will change wound vac again Wednesday and plan for outpatient wound vac once discharged. (5) Protein-calorie malnutrition, moderate: Code(s): E44.0 - Moderate protein-calorie malnutrition Status: Acute Assessment and Plan: * Stop TPN. Added Ensure supplements to diet. Subjective Subjective Date/Time Seen: 08/05/24 10:53 Interval history: Tolerating low fiber diet. Bowels moving. No vomiting. Decreased appetite but able to tolerate meals. Exam GI: Inspection: non-distended and incision (Wound vac and retention sutures in place) GI Palp: Yes Soft to palpation and No Guarding due to palpation present (GI) Objective Data Vital Signs Vital Signs: Vital Signs - 24 hr 08/04/24 12:00 08/04/24 16:00 08/04/24 20:00 Temperature 98.0 F 98.0 F 97.2 F L Pulse Rate 86 94 85 Respiratory Rate 16 16 16 Blood Pressure 134/80 132/83 137/93 H Pulse Oximetry 99 100 100 Oxygen Delivery 08/04/24 20:00 08/04/24 23:55 08/05/24 04:00 Temperature 97.1 F L 97.2 F L Pulse Rate 85 81 78 Respiratory Rate 16 16 20 Blood Pressure 126/81 126/77 Pulse Oximetry 100 98 100 Oxygen Delivery Room Air 08/05/24 08:00 Temperature 97.7 F Pulse Rate 79 Respiratory Rate 12 Blood Pressure 125/74 Pulse Oximetry 100 Oxygen Delivery Intake/Output Intake/Output: Intake & Output 08/02/24 08/03/24 08/04/24 08/05/24 23:59 23:59 23:59 23:59 Intake Total 4131.8 5139.2 1912.5 2102.5 Output Total 3350 2850 1000 600 Balance 781.8 2289.2 912.5 1502.5 Meds/Results Medications: Active Medications Generic Name Dose Route Start Last Admin Trade Name Freq PRN Reason Stop Dose Admin Alteplase, Recombinant 2 mg 07/31/24 11:55 07/31/24 16:47 Alteplase 2 Mg Vial (Cathflo) IV PUSH 2 mg ONCE PRN Administration Line Occlusion Alteplase, Recombinant 2 mg 07/31/24 16:02 Alteplase 2 Mg Vial (Cathflo) IV PUSH ONCE PRN Line Occlusion Amitriptyline HCl 25 mg 07/25/24 21:00 08/04/24 20:17 Amitriptyline Hcl 25 Mg Tablet PO 25 mg HS EMILE Administration Benzocaine 1 lozenge 07/26/24 09:56 07/27/24 20:55 Benzocaine/Menthol (*Bkc) 18 Ea Lozenge PO 1 lozenge PRN PRN Administration Sore Throat Bupropion HCl 300 mg 07/26/24 09:00 08/05/24 08:13 Bupropion Hcl Xl (24 Hr) 150 Mg Tabcr PO 300 mg DAILY EMILE Administration Buspirone HCl 30 mg 07/28/24 10:20 08/05/24 08:13 Buspirone Hcl 10 Mg Tablet BY MOUTH 30 mg DAILY EMILE Administration Buspirone HCl 15 mg 07/28/24 21:00 08/04/24 20:17 Buspirone Hcl 5 Mg Tablet BY MOUTH 15 mg HS EMILE Administration Dextrose 12.5 gm 07/25/24 14:35 Dextrose 50% 25 Gm/50 Ml Syringe IV PUSH PRN PRN Hypoglycemia Protocol Enoxaparin Sodium 40 mg 07/25/24 09:00 08/05/24 08:14 Enoxaparin 40 Mg/0.4 Ml Syringe SUB-Q 40 mg DAILY EMILE Administration Glucagon 1 mg 07/25/24 14:35 Glucagon For Inj 1 Mg Vial IM PRN PRN Hypoglycemia Protocol Glucose 15 gm 07/25/24 14:35 Glucose Oral Gel 15 Gm Of Glucse In 37.5 Gm Tube PO PRN PRN Hypoglycemia Protocol Dextrose 1,000 mls @ 50 mls/hr 07/25/24 14:35 Dextrose 10% IV CONT .Q20H PRN if PN is interrupted Fat Emulsion Intravenous 250 mls @ 20.833 mls/hr 07/25/24 14:35 08/05/24 04:03 Lipids 20% IVPB 20.8 mls/hr Q24H EMILE Administration Dextrose 1,000 mls @ 100 mls/hr 07/25/24 14:35 Dextrose 5% 1,000 Ml IVPB PRN PRN Hypoglycemia Protocol Ibuprofen 800 mg in 200 mls @ 400 mls/hr 07/28/24 10:33 08/04/24 21:50 Caldolor 800 Mg/200 Ml IVPB Infused Q6H PRN Infusion Pain Rated 1-3 Insulin Aspart 3 - 6 units 07/25/24 18:00 08/05/24 06:00 Insulin Aspart (*Bkc) 100 Units/Ml SUB-Q Not Given Q6HR [facility] Protocol Lorazepam 0.5 mg 07/25/24 19:49 08/05/24 06:01 Lorazepam Inj (*Crx) 2 Mg/Ml Vial IV PUSH 0.5 mg Q6H PRN Administration Anxiety Miscellaneous Information 1 each 08/03/24 00:01 Lorazepam Will If Not Renewed On 08-04-24 XX 09/02/24 00:00 CLARIFY EMILE Naloxone HCl 0.1 mg 07/24/24 20:38 Naloxone Hcl 0.4 Mg/Ml Vial IV PUSH Q2M PRN Opiate Reversal Oxycodone/Acetaminophen 1 tablet 08/03/24 08:18 08/05/24 08:14 Oxycodone/Acetaminophen (*Crx) 5-325 Mg Tablet PO 1 tablet Q4H PRN Administration Pain Rated 4-6 Oxycodone/Acetaminophen 1 tab 08/03/24 08:18 Oxycodone/Acetaminophen (*Crx) 10-325 Mg Tablet PO Q6H PRN Pain Rated 7-10 Pantoprazole Sodium 40 mg 08/03/24 09:00 08/05/24 08:13 Pantoprazole 40 Mg Tablet PO 40 mg QAM EMILE Administration Phenol 1 spray 07/27/24 04:00 07/27/24 20:55 Phenol/Sod Pheno Bonaparte Mendez (*Bkc) MUCOUS MEM 1 spray PRN PRN Administration Sore Throat Prochlorperazine Edisylate 10 mg 08/01/24 10:14 08/04/24 15:11 Prochlorperazine Edisylate 10 Mg/2 Ml Vial IV PUSH 10 mg Q6H PRN Administration Nausea And Vomiting Sodium Chloride 10 ml 07/25/24 14:00 08/05/24 06:00 Central Line Flush IV PUSH 10 ml Q8HR EMILE Administration Sodium Chloride 10 ml 07/25/24 11:31 Central Line Flush IV PUSH PRN PRN with TPN bag changes Sodium Chloride 20 ml 07/25/24 11:31 08/03/24 15:09 Central Line Flush IV PUSH 20 ml PRN PRN Administration after blood draws Radiology Results: ITS Impressions Feeding Tube Manipulation 07/28/24 09:51 IMPRESSION: 1: NG tube tip in the stomach. Abdomen Fluoroscopy 07/28/24 15:49 IMPRESSION: 1. Nasogastric tube tip in the stomach. 2. Dilated small bowel, likely adynamic ileus. 3. Airspace opacities at the lung bases, left worse than right, consistent with atelectasis versus pneumonia. Abdomen/Pelvis CT 07/31/24 10:04 IMPRESSION: 1. Postoperative changes in the abdomen and pelvis with a couple likely small bowel anastomoses. 2. Significant decrease in the previously seen wall thickening of the small bowel with a few mildly dilated loops of small bowel without a discrete transition point and would favor ileus over obstruction. 3. Few scattered foci of free intraperineal gas along with several new loculated fluid collections in the abdomen and pelvis suspicious for abscesses. The persistence of free gas approximately 3 weeks post surgery suggests possible residual bowel perforation or anastomotic breakdown. Could consider repeat CT with water-soluble oral contrast material. 4. Significant improvement in likely resolution of the prior pneumonia in the bilateral lower lobes with atelectasis with volume loss in the bilateral lower lobes. Residual pneumonia in the collapsed portion of the lungs cannot be optimally excluded. 5. Resolution of the prior small right pleural effusion and significant decrease in size of a now very small left pleural effusion. 6. Cardiomegaly. Chest X-Ray 08/01/24 08:05 IMPRESSION: No acute cardiopulmonary pathology. Left PICC line with the tip overlying superior vena cava. Possible kink in the left axillary area. Catheter Placement CT 08/01/24 13:56 IMPRESSION: 1. Successful CT-guided pelvic abscess drainage. 2. 15 mL fluid was sent for aerobic and anaerobic cultures. 3. The catheter will be managed by Dr. Mccann. Small Bowel X-Ray 08/02/24 14:10 IMPRESSION: 1. No persistently dilated loops of small bowel to suggest obstruction with normal transit time to the colon of 2-2.75 hours.. Abdomen X-Ray 08/04/24 11:36 IMPRESSION: 1: No acute abdominal abnormality identified. Fluoroscopy 08/04/24 12:37 IMPRESSION: 1. Successful fluoro-guided removal of a wire of a right transgluteal abscess drainage catheter. Labs Labs: Laboratory Results - last 24 hr 08/04/24 08/04/24 08/04/24 12:04 18:11 23:50 WBC RBC Hgb Hct MCV MCH MCHC RDW Plt Count MPV Immature Gran % (Auto) Neut % (Auto) Lymph % (Auto) [place] % (Auto) Eos % (Auto) Baso % (Auto) Lymph # (Auto) [place] # (Auto) Eos # (Auto) Baso # (Auto) Abs Immat Gran (auto) Absolute Neuts (auto) Absolute Nucleated RBC Nucleated RBC % Sodium Potassium Chloride Carbon Dioxide Anion Gap BUN Creatinine Estim Creat Clear Calc Estimated GFR Glucose POC Capillary Glucose 81 96 116 H Calcium C-Reactive Protein 08/05/24 08/05/24 05:46 05:48 WBC 8.8 RBC 3.82 L Hgb 11.2 L Hct 35.1 L MCV 91.9 MCH 29.3 MCHC 31.9 L RDW 12.5 Plt Count 432 H MPV 10.0 Immature Gran % (Auto) 4.5 H Neut % (Auto) 61.7 Lymph % (Auto) 18.3 [place] % (Auto) 6.6 Eos % (Auto) 8.2 H Baso % (Auto) 0.7 Lymph # (Auto) 1.60 [place] # (Auto) 0.6 Eos # (Auto) 0.7 H Baso # (Auto) 0.1 Abs Immat Gran (auto) 0.39 H Absolute Neuts (auto) 5.4 Absolute Nucleated RBC 0.000 Nucleated RBC % 0.0 Sodium 136 L Potassium 3.9 Chloride 104 Carbon Dioxide 30 Anion Gap 2 L BUN 14 Creatinine 0.70 Estim Creat Clear Calc 149 Estimated GFR > 60 Glucose 117 H POC Capillary Glucose 135 H Calcium 9.2 C-Reactive Protein 0.8
[2024-08-05 12:00] VITALS: BP 122/73; PULSE 88; RESP 20; TEMP 36.7; O2SAT 99
[2024-08-05 12:22] LABS: Glucose Point of Care 129 mg/dl (65-105)
[2024-08-05 16:00] VITALS: BP 127/77; PULSE 92; RESP 16; TEMP 36.4; O2SAT 100
[2024-08-05 16:35] LABS: Triglycerides 148 mg/dL (<150)
[2024-08-05 17:57] LABS: Glucose Point of Care 101 mg/dl (65-105)
[2024-08-05 20:00] VITALS: PULSE 75; RESP 16; O2SAT 100
[2024-08-05 20:06] VITALS: BP 122/80; PULSE 75; RESP 16; TEMP 37; O2SAT 100
[2024-08-05] MEDS: busPIRone HCL 5 MG TABLET 15 MG BY MOUTH (20:38)
[2024-08-05] MEDS: AMITRIPTYLINE HCL 25 MG TABLET PO (20:38)
[2024-08-06] VITALS (9 sets, daily range): BP systolic 116–122; BP diastolic 70–80; PULSE 70–79; RESP 12–18; TEMP 36.4–36.9; O2SAT 99–100
[2024-08-06 00:26] LABS: Glucose Point of Care 90 mg/dl (65-105)
[2024-08-06] MEDS: oxyCODONE/ACETAMINOPHEN (*CRX) 5-325 MG TABLET 1 TABLET PO ×4 (01:52→20:14)
[2024-08-06] MEDS: LORazepam (*CRX) 0.5 MG TABLET PO ×4 (01:53→20:15)
[2024-08-06] MEDS: CENTRAL LINE FLUSH 10 ML IV PUSH ×3 (05:44→20:17)
[2024-08-06 05:49] LABS: Basophils Absolute Auto 0.1 K/mm3 (0.0-0.1); Basophils Percent Auto 0.6 % (0.2-1.2); Eosinophils Absolute Auto 0.6 K/mm3 (0-0.3); Eosinophils Percent Auto 8.1 % (0-4.4); Hematocrit 35.7 % (42.0-52.0); Hemoglobin 11.7 g/dL (14.0-18.0); Immature Granulocyte Absolute 0.29 K/mm3 (0.00-0.031); Immature Granulocyte Percent A 3.7 % (0-0.5); Lymphocytes Absolute Auto 1.58 K/mm3 (0.9-3.2); Lymphocytes Percent Auto 20.4 % (18.3-44.2); Mean Corpuscular HGB Conc 32.8 g/dl (32-36); Mean Corpuscular Hemoglobin 29.9 pg (26-34); Mean Corpuscular Volume 91.3 fl (80-100); Mean Platelet Volume 10.1 fl (7.4-10.4); Monocytes Absolute Auto 0.5 K/mm3 (0.1-0.6); Monocytes Percent Auto 6.3 % (2.6-8.5); Neutrophils Absolute Auto 4.7 K/mm3 (1.3-6.7); Neutrophils Percent Auto 60.9 % (45.5-73.1); Platelet Count Result 475 k/mm3 (150-375); Red Blood Count 3.91 M/mm3 (4.6-6.20); Red Cell Distribution Width 12.7 % (11.5-14.5); White Blood Count 7.8 K/mm3 (4.5-10.0)
[2024-08-06 05:59] LABS: Anion Gap 2 mmol/L (4-12); Blood Urea Nitrogen 12 mg/dL (9-20); Calcium 9.4 mg/dL (8.4-10.2); Carbon Dioxide 30 mmol/L (22-30); Chloride 104 mmol/L (98-107); Estimated CRCL calculation 132 ml/min; Estimated Glomerular Filt Rate > 60; Glucose 92 mg/dL (65-110); Sodium 136 mmol/L (137-145)
[2024-08-06] MEDS: PANTOPRAZOLE 40 MG TABLET PO (08:12)
[2024-08-06] MEDS: busPIRone HCL 10 MG TABLET 30 MG BY MOUTH (08:12)
[2024-08-06] MEDS: buPROPion HCL XL (24 HR) 150 MG TABCR 300 MG PO (08:12)
[2024-08-06] MEDS: ENOXAPARIN 40 MG/0.4 ML SYRINGE SUB-Q (08:14)
--- NOTE | 2024-08-06 09:42 | P.PNGS_ITS ---
Progress Note: A&P Assessment and Plan (1) Pelvic abscess in male: Code(s): K65.1 - Peritoneal abscess Status: Ruled-out Assessment and Plan: * No ongoing signs of infection currently (2) H/O lysis of adhesions: Code(s): Z98.890 - Other specified postprocedural states Status: Acute Assessment and Plan: * Tolerating solid diet and bowels moving * Added MiraLax to help prevent constipation while on narcotic pain meds 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: Code(s): K56.50 - Intestinal adhesions [bands], unspecified as to partial versus complete obstruction Status: Acute Assessment and Plan: Extensive adhesiolysis performed 07/24/2024 (4) Perioperative dehiscence of abdominal wound with evisceration: Qualifiers: Encounter type: subsequent encounter Qualified Code(s): T81.321D - Disruption or dehiscence of closure of internal operation (surgical) wound of abdominal wall muscle or fascia, subsequent encounter Code(s): T81.321A - Disruption or dehiscence of closure of internal operation (surgical) wound of abdominal wall muscle or fascia, initial encounter Status: Acute Assessment and Plan: * Wound vac in place. Will change wound vac again Wednesday and plan for outpatient wound vac once discharged. (5) Protein-calorie malnutrition, moderate: Code(s): E44.0 - Moderate protein-calorie malnutrition Status: Acute Assessment and Plan: * Ensure supplements Subjective Subjective Date/Time Seen: 08/06/24 09:42 Interval history: Appetite improving. Having solid BM's. No nausea or vomiting. Ambulating in halls with minimal pain. Exam GI: Inspection: non-distended and incision (Wound vac and retention sutures in place) GI Palp: Yes Soft to palpation and No Guarding due to palpation present (GI) Objective Data Vital Signs Vital Signs: Vital Signs - 24 hr 08/05/24 10:00 08/05/24 12:00 08/05/24 16:00 Temperature 97.7 F 98.1 F 97.5 F L Pulse Rate 79 88 92 Respiratory Rate 12 20 16 Blood Pressure 125/74 122/73 127/77 Pulse Oximetry 100 99 100 Oxygen Delivery 08/05/24 20:00 08/05/24 20:06 08/06/24 00:14 Temperature 98.6 F 98.5 F Pulse Rate 75 75 74 Respiratory Rate 16 16 18 Blood Pressure 122/80 122/77 Pulse Oximetry 100 100 99 Oxygen Delivery Room Air 08/06/24 04:00 08/06/24 08:12 Temperature 97.9 F Pulse Rate 72 Respiratory Rate 18 Blood Pressure 121/80 Pulse Oximetry 99 99 Oxygen Delivery Room Air Intake/Output Intake/Output: Intake & Output 08/03/24 08/04/24 08/05/24 08/06/24 23:59 23:59 23:59 23:59 Intake Total 5139.2 1912.5 3082.5 500 Output Total 2850 1000 1600 350 Balance 2289.2 912.5 1482.5 150 Meds/Results Medications: Active Medications Generic Name Dose Route Start Last Admin Trade Name Freq PRN Reason Stop Dose Admin Alteplase, Recombinant 2 mg 07/31/24 11:55 07/31/24 16:47 Alteplase 2 Mg Vial (Cathflo) IV PUSH 2 mg ONCE PRN Administration Line Occlusion Alteplase, Recombinant 2 mg 07/31/24 16:02 Alteplase 2 Mg Vial (Cathflo) IV PUSH ONCE PRN Line Occlusion Amitriptyline HCl 25 mg 07/25/24 21:00 08/05/24 20:38 Amitriptyline Hcl 25 Mg Tablet PO 25 mg HS EMILE Administration Benzocaine 1 lozenge 07/26/24 09:56 07/27/24 20:55 Benzocaine/Menthol (*Bkc) 18 Ea Lozenge PO 1 lozenge PRN PRN Administration Sore Throat Bupropion HCl 300 mg 07/26/24 09:00 08/06/24 08:12 Bupropion Hcl Xl (24 Hr) 150 Mg Tabcr PO 300 mg DAILY EMIEL Administration Buspirone HCl 30 mg 07/28/24 10:20 08/06/24 08:12 Buspirone Hcl 10 Mg Tablet BY MOUTH 30 mg DAILY EMILE Administration Buspirone HCl 15 mg 07/28/24 21:00 08/05/24 20:38 Buspirone Hcl 5 Mg Tablet BY MOUTH 15 mg HS EMILE Administration Dextrose 12.5 gm 07/25/24 14:35 Dextrose 50% 25 Gm/50 Ml Syringe IV PUSH PRN PRN Hypoglycemia Protocol Enoxaparin Sodium 40 mg 07/25/24 09:00 08/06/24 08:14 Enoxaparin 40 Mg/0.4 Ml Syringe SUB-Q 40 mg DAILY EMILE Administration Glucagon 1 mg 07/25/24 14:35 Glucagon For Inj 1 Mg Vial IM PRN PRN Hypoglycemia Protocol Glucose 15 gm 07/25/24 14:35 Glucose Oral Gel 15 Gm Of Glucse In 37.5 Gm Tube PO PRN PRN Hypoglycemia Protocol Dextrose 1,000 mls @ 100 mls/hr 07/25/24 14:35 Dextrose 5% 1,000 Ml IVPB PRN PRN Hypoglycemia Protocol Ibuprofen 800 mg in 200 mls @ 400 mls/hr 07/28/24 10:33 08/04/24 21:50 Caldolor 800 Mg/200 Ml IVPB Infused Q6H PRN Infusion Pain Rated 1-3 Insulin Aspart 3 - 6 units 07/25/24 18:00 08/06/24 06:05 Insulin Aspart (*Bkc) 100 Units/Ml SUB-Q Not Given Q6HR [facility] Protocol Lorazepam 0.5 mg 08/05/24 22:20 08/06/24 08:12 Lorazepam (*Crx) 0.5 Mg Tablet PO 0.5 mg Q6H PRN Administration Anxiety Naloxone HCl 0.1 mg 07/24/24 20:38 Naloxone Hcl 0.4 Mg/Ml Vial IV PUSH Q2M PRN Opiate Reversal Oxycodone/Acetaminophen 1 tablet 08/03/24 08:18 08/06/24 05:33 Oxycodone/Acetaminophen (*Crx) 5-325 Mg Tablet PO 1 tablet Q4H PRN Administration Pain Rated 4-6 Oxycodone/Acetaminophen 1 tab 08/03/24 08:18 Oxycodone/Acetaminophen (*Crx) 10-325 Mg Tablet PO Q6H PRN Pain Rated 7-10 Pantoprazole Sodium 40 mg 08/03/24 09:00 08/06/24 08:12 Pantoprazole 40 Mg Tablet PO 40 mg QAM EMILE Administration Phenol 1 spray 07/27/24 04:00 07/27/24 20:55 Phenol/Sod Pheno [place] (*Bkc) MUCOUS MEM 1 spray PRN PRN Administration Sore Throat Prochlorperazine Edisylate 10 mg 08/01/24 10:14 08/04/24 15:11 Prochlorperazine Edisylate 10 Mg/2 Ml Vial IV PUSH 10 mg Q6H PRN Administration Nausea And Vomiting Sodium Chloride 10 ml 07/25/24 14:00 08/06/24 05:44 Central Line Flush IV PUSH 10 ml Q8HR EMILE Administration Sodium Chloride 10 ml 07/25/24 11:31 Central Line Flush IV PUSH PRN PRN with TPN bag changes Sodium Chloride 20 ml 07/25/24 11:31 08/03/24 15:09 Central Line Flush IV PUSH 20 ml PRN PRN Administration after blood draws Radiology Results: ITS Impressions Feeding Tube Manipulation 07/28/24 09:51 IMPRESSION: 1: NG tube tip in the stomach. Abdomen Fluoroscopy 07/28/24 15:49 IMPRESSION: 1. Nasogastric tube tip in the stomach. 2. Dilated small bowel, likely adynamic ileus. 3. Airspace opacities at the lung bases, left worse than right, consistent with atelectasis versus pneumonia. Abdomen/Pelvis CT 07/31/24 10:04 IMPRESSION: 1. Postoperative changes in the abdomen and pelvis with a couple likely small bowel anastomoses. 2. Significant decrease in the previously seen wall thickening of the small bowel with a few mildly dilated loops of small bowel without a discrete transition point and would favor ileus over obstruction. 3. Few scattered foci of free intraperineal gas along with several new loculated fluid collections in the abdomen and pelvis suspicious for abscesses. The persistence of free gas approximately 3 weeks post surgery suggests possible residual bowel perforation or anastomotic breakdown. Could consider repeat CT with water-soluble oral contrast material. 4. Significant improvement in likely resolution of the prior pneumonia in the bilateral lower lobes with atelectasis with volume loss in the bilateral lower lobes. Residual pneumonia in the collapsed portion of the lungs cannot be optimally excluded. 5. Resolution of the prior small right pleural effusion and significant decrease in size of a now very small left pleural effusion. 6. Cardiomegaly. Chest X-Ray 08/01/24 08:05 IMPRESSION: No acute cardiopulmonary pathology. Left PICC line with the tip overlying superior vena cava. Possible kink in the left axillary area. Catheter Placement CT 08/01/24 13:56 IMPRESSION: 1. Successful CT-guided pelvic abscess drainage. 2. 15 mL fluid was sent for aerobic and anaerobic cultures. 3. The catheter will be managed by Dr. Mccann. Small Bowel X-Ray 08/02/24 14:10 IMPRESSION: 1. No persistently dilated loops of small bowel to suggest obstruction with normal transit time to the colon of 2-2.75 hours.. Abdomen X-Ray 08/04/24 11:36 IMPRESSION: 1: No acute abdominal abnormality identified. Fluoroscopy 08/04/24 12:37 IMPRESSION: 1. Successful fluoro-guided removal of a wire of a right transgluteal abscess drainage catheter. Labs Labs: Laboratory Results - last 24 hr 08/05/24 08/05/24 08/05/24 12:20 16:10 17:48 WBC RBC Hgb Hct MCV MCH MCHC RDW Plt Count MPV Immature Gran % (Auto) Neut % (Auto) Lymph % (Auto) [place] % (Auto) Eos % (Auto) Baso % (Auto) Lymph # (Auto) [place] # (Auto) Eos # (Auto) Baso # (Auto) Abs Immat Gran (auto) Absolute Neuts (auto) Absolute Nucleated RBC Nucleated RBC % Sodium Potassium Chloride Carbon Dioxide Anion Gap BUN Creatinine Estim Creat Clear Calc Estimated GFR Glucose POC Capillary Glucose 129 H 101 Calcium Triglycerides 148 08/06/24 08/06/24 00:11 05:41 WBC 7.8 RBC 3.91 L Hgb 11.7 L Hct 35.7 L MCV 91.3 MCH 29.9 MCHC 32.8 RDW 12.7 Plt Count 475 H MPV 10.1 Immature Gran % (Auto) 3.7 H Neut % (Auto) 60.9 Lymph % (Auto) 20.4 [place] % (Auto) 6.3 Eos % (Auto) 8.1 H Baso % (Auto) 0.6 Lymph # (Auto) 1.58 [place] # (Auto) 0.5 Eos # (Auto) 0.6 H Baso # (Auto) 0.1 Abs Immat Gran (auto) 0.29 H Absolute Neuts (auto) 4.7 Absolute Nucleated RBC 0.000 Nucleated RBC % 0.0 Sodium 136 L Potassium 4.0 Chloride 104 Carbon Dioxide 30 Anion Gap 2 L BUN 12 Creatinine 0.80 Estim Creat Clear Calc 132 Estimated GFR > 60 Glucose 92 POC Capillary Glucose 90 Calcium 9.4 Triglycerides
[2024-08-06] MEDS: oxyCODONE/ACETAMINOPHEN (*CRX) 10-325 MG TABLET 1 TAB PO (09:56)
[2024-08-06] MEDS: polyethylene glycoL 3350 17 GM POWD.PACK PO (10:06)
[2024-08-06] MEDS: IBUPROFEN IV 800 MG/200 ML 800 MG/200 ML BAG 400 MG IVPB (14:14)
[2024-08-06] MEDS: busPIRone HCL 5 MG TABLET 15 MG BY MOUTH (20:14)
[2024-08-06] MEDS: AMITRIPTYLINE HCL 25 MG TABLET PO (20:14)
[2024-08-07] VITALS: BP 118/83; PULSE 98; RESP 18; TEMP 36.9; O2SAT 99
[2024-08-07] MEDS: LORazepam (*CRX) 0.5 MG TABLET PO ×2 (04:13→10:13)
[2024-08-07] MEDS: oxyCODONE/ACETAMINOPHEN (*CRX) 5-325 MG TABLET 1 TABLET PO ×3 (04:13→15:35)
[2024-08-07 04:45] VITALS: BP 112/64; PULSE 77; RESP 18; TEMP 36.6; O2SAT 98
[2024-08-07 05:05] VITALS: TEMP 36.9
[2024-08-07] MEDS: CENTRAL LINE FLUSH 10 ML IV PUSH (05:21)
[2024-08-07 06:47] LABS: Basophils Absolute Auto 0.1 K/mm3 (0.0-0.1); Basophils Percent Auto 0.9 % (0.2-1.2); Eosinophils Absolute Auto 0.5 K/mm3 (0-0.3); Eosinophils Percent Auto 6.1 % (0-4.4); Hematocrit 35.7 % (42.0-52.0); Hemoglobin 11.8 g/dL (14.0-18.0); Immature Granulocyte Absolute 0.26 K/mm3 (0.00-0.031); Immature Granulocyte Percent A 3.4 % (0-0.5); Lymphocytes Absolute Auto 1.38 K/mm3 (0.9-3.2); Mean Corpuscular HGB Conc 33.1 g/dl (32-36); Mean Corpuscular Hemoglobin 30.2 pg (26-34); Mean Corpuscular Volume 91.3 fl (80-100); Monocytes Absolute Auto 0.5 K/mm3 (0.1-0.6); Monocytes Percent Auto 6.6 % (2.6-8.5); Platelet Count Result 488 k/mm3 (150-375); Red Blood Count 3.91 M/mm3 (4.6-6.20); Red Cell Distribution Width 12.8 % (11.5-14.5); White Blood Count 7.7 K/mm3 (4.5-10.0)
[2024-08-07 07:00] LABS: Triglycerides 204 mg/dL (<150)
[2024-08-07 07:03] LABS: Alanine Aminotransferase 23 U/L (6-50); Albumin Level 3.4 g/dL (3.5-5.1); Alkaline Phosphatase 84 U/L (38-126); Anion Gap 2 mmol/L (4-12); Aspartate Amino Transferase 23 U/L (17-59); Bilirubin,Total 0.4 mg/dL (0.2-1.3); Blood Urea Nitrogen 12 mg/dL (9-20); Calcium 9.2 mg/dL (8.4-10.2); Carbon Dioxide 30 mmol/L (22-30); Chloride 105 mmol/L (98-107); Estimated CRCL calculation 118 ml/min; Estimated Glomerular Filt Rate > 60; Glucose 90 mg/dL (65-110); Magnesium 1.8 mg/dL (1.6-2.3); Potassium 3.9 mmol/L (3.4-5.0); Sodium 137 mmol/L (137-145)
[2024-08-07 07:11] LABS: Transferrin 164 mg/dL (206-381)
[2024-08-07 07:26] LABS: Partial Thromboplastin Time 33.4 Seconds (22.3-36.8)
[2024-08-07 08:00] VITALS: BP 127/71; PULSE 98; RESP 16; TEMP 36.6; O2SAT 100
[2024-08-07] MEDS: buPROPion HCL XL (24 HR) 150 MG TABCR 300 MG PO (10:08)
[2024-08-07] MEDS: busPIRone HCL 5 MG TABLET 15 MG BY MOUTH (10:08)
[2024-08-07 10:09] VITALS: O2SAT 100
[2024-08-07] MEDS: PANTOPRAZOLE 40 MG TABLET PO (10:09)
[2024-08-07] MEDS: polyethylene glycoL 3350 17 GM POWD.PACK PO (10:10)
[2024-08-07] MEDS: busPIRone HCL 10 MG TABLET 30 MG BY MOUTH (10:11)
[2024-08-07] MEDS: ENOXAPARIN 40 MG/0.4 ML SYRINGE SUB-Q (10:12)
[2024-08-07 12:00] VITALS: BP 119/80; PULSE 78; RESP 16; TEMP 37.3; O2SAT 100
--- NOTE | 2024-08-07 13:27 | P.DS_ITS ---
DS: Admitting Diagnosis Discharge Date 08/07/2024 Admitting Diagnosis * Fascial dehiscence with evisceration * Recurrent small-bowel obstruction * Protein calorie malnutrition severe * Depression and anxiety * History of alcohol withdrawal symptoms DS: Discharge Diagnosis Discharge Diagnosis (1) Perioperative dehiscence of abdominal wound with evisceration: Qualifiers: Encounter type: subsequent encounter Qualified Code(s): T81.321D - Disruption or dehiscence of closure of internal operation (surgical) wound of abdominal wall muscle or fascia, subsequent encounter Code(s): T81.321A - Disruption or dehiscence of closure of internal operation (surgical) wound of abdominal wall muscle or fascia, initial encounter Status: Acute (2) Obstruction of small intestine due to peritoneal adhesion: Code(s): K56.50 - Intestinal adhesions [bands], unspecified as to partial versus complete obstruction Status: Acute (3) H/O lysis of adhesions: Code(s): Z98.890 - Other specified postprocedural states Status: Acute (4) Protein-calorie malnutrition, moderate: Code(s): E44.0 - Moderate protein-calorie malnutrition Status: Acute (5) Depression with anxiety: Code(s): F41.8 - Other specified anxiety disorders Status: Chronic (6) History of alcohol withdrawal delirium: Code(s): Z86.59 - Personal history of other mental and behavioral disorders Status: Chronic DS: Summary Hospital Course Reason for hospitalization: Fascial dehiscence with evisceration, small-bowel obstruction Hospital Course: Patient is a 39-year-old man who at least 20 years ago, 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 Since that time, he has had trouble with recurring bowel obstructions. He had most of his previous care at [facility]. He initially came to [facility] on 07/02/2024 with a small-bowel obstruction and severe uremia and dehydration. He was hydrated and decompressed with a nasogastric tube. He appeared to be improving significantly and a small bowel series was performed on on 07/05/2020 for which showed the contrast to go through but it took a very long time. He then was noted on 07/06 to have his serum lipase increased over 7000. CT scan showed evidence of bowel perforation. He was taken to surgery on 07/06/2024 and 2 loops of bowel had been involved in dense adhesions. The loop with the perforation was resected and another loop with significant kinking of the bowel was also resected. Postoperatively, he was treated with NG suction and TPN as well as IV antibiotics. He slowly improved and was tolerating oral intake. He was able to be discharged on 07/17/2024, postoperative day 11. During his hospital stay, he had most of his abdominal wound opened due to evidence of infection. During that hospital stay he also had alcohol withdrawal symptoms and medical care was provided by the hospitalist. Two or 3 days after discharge, the patient became nauseated. After that, he started vomiting. He had multiple episodes of vomiting and showed up at my office on 07/24/2024, on scheduled, reporting that the day before he noticed some unusual appearing material protruding from the upper aspect of his abdominal wound. His examination showed fascial dehiscence with evisceration. He also had a recurrent small-bowel obstruction. He was readmitted and on 07/24/2024 taken back to surgery. He had a full and length the adhesiolysis. The point of obstruction was distal to the 2 previous bowel resections. No additional resection was needed. Two small enterotomies were created and were closed in 2 layers. His adhesions were quite dense and difficult to manage. None the less, a full adhesiolysis from the ligament of Treitz to the ileocecal valve was performed. His fascial dehiscence was repaired and retention sutures were placed. His wound was left open. He was observed in the ICU the night after surgery. He had no recurrence of his alcohol withdrawal symptoms but did require high doses of Dilaudid for pain control. He was transferred out of the intensive care unit on the day after surgery. A PICC line was placed in TPN was started. His white blood cell count increased to 11,600 with an automated left shift on his differential. CT scan of the abdomen and pelvis was performed. It was read as having a large pelvic abscess and some interloop abscesses. On 08/01, patient underwent CT-guided percutaneous drainage of the larger pelvic fluid collection. He was started on Levaquin and metronidazole. The pelvic fluid collection never drained any purulent fluid. Cultures were negative for any bacteria and the us this was simply a collection of postoperative ascites rather than an abscess. Once the cultures were negative, patient's pigtail catheter drain was removed and antibiotics were stopped on 08/04/2024. Patient had a very prolonged postoperative ileus. He had a large amount out his NG tube of well over a 1000 cc daily. He was however having bowel movements and had good bowel sounds by postop day 7. His plain films no longer showed an ileus pattern. 08/02/2024, he had a water-soluble small bowel series per the NG tube. Although it took over 2 hours for contrast reached the colon, there were no dilated bowel and no evidence of obstruction. His new gastric tube was removed on 08/03/2024. He had a poor appetite but was tolerating liquids on 08/03. His diet was slowly advanced to solid food which he tolerated well. His TPN was able to be discontinued on 08/04/2024. His white blood cell count continue to normalize with no evidence of infection. His abdominal wound was initially treated with local wound care but, after consultation with Wound/Ostomy nursing, a wound VAC was placed on 08/01/2024. Patient's wound responded very well to this with increasing granulation tissue will and decreasing amount of slough in the base of the wound. He received insurance approval for home wound VAC therapy on 08/07/2024. He is able to be discharged now on 08/07/2024 in good condition with plans for wound follow-up and VAC change in the wound clinic on 08/10/2024. His retention sutures are planned to be removed on repeat visit to the Wound Clinic 08/14/2024. Status at Discharge Functional status at discharge: independent ambulation Overall status at discharge: patient is progressing back to baseline Time Spent with Patient Time attestation: Total time spent providing and/or coordinating discharge services: Time spent: Less than 30 minutes DS: Data Data Completed and Pending Labs on day of discharge: Labs from last 24 hours 08/07/24 06:36 WBC 7.7 RBC 3.91 L Hgb 11.8 L Hct 35.7 L MCV 91.3 MCH 30.2 MCHC 33.1 RDW 12.8 Plt Count 488 H MPV 10.0 Immature Gran % (Auto) 3.4 H Neut % (Auto) 65.0 Lymph % (Auto) 18.0 L [place] % (Auto) 6.6 Eos % (Auto) 6.1 H Baso % (Auto) 0.9 Lymph # (Auto) 1.38 [place] # (Auto) 0.5 Eos # (Auto) 0.5 H Baso # (Auto) 0.1 Abs Immat Gran (auto) 0.26 H Absolute Neuts (auto) 5.0 Absolute Nucleated RBC 0.000 Nucleated RBC % 0.0 PT 14.0 INR 1.0 APTT 33.4 Sodium 137 Potassium 3.9 Chloride 105 Carbon Dioxide 30 Anion Gap 2 L BUN 12 Creatinine 0.90 Estim Creat Clear Calc 118 Estimated GFR > 60 Glucose 90 Calcium 9.2 Magnesium 1.8 Transferrin 164 L Total Bilirubin 0.4 AST 23 ALT 23 Alkaline Phosphatase 84 Total Protein 7.0 Albumin 3.4 L Triglycerides 204 H Discharge Plan Discharge Attending physician on discharge: Armand Mccann Consulting providers: Immanuel Ibrahim; Sirisha Evans Discharging Clinician: Armand Mccann Anticipated Discharge Date/Time: 08/07/24 14:00 Patient Disposition: Home, Self-Care Activity: no shower, no straining and as tolerated Diet: regular Wound Care Instructions: keep dressing dry Discharge Instructions: Wound Vac dressing changes to be performed at the [facility] twice a week. You first appointment will be on July at 9:30AM Please arrive to Registration(main lobby of Entrance 1) by 9:00AM Once you are registered, the wound clinic is located on the 2nd floor. * No lifting over 15 lb * Ambulate 3 times a day * Regular diet * No showering or bathing until the wound VAC is removed. * Take pain medications sparingly, only when absolutely needed. Try to take ibuprofen or plain Tylenol when able. * Call or go to the emergency room for severe abdominal pain, persistent wound bleeding, temp over 101, nausea and vomiting, other significant change in condition. * Dr. Mccann will see you in the wound clinic on 08/14/2024, your 2nd wound clinic visit. Patient Instructions: Pain Management (DC) Patient Language: Upper Sorbian Follow-up/Referrals: Armand Mccann MD [Physician] - 08/14/24 (Dr. Mccann will see at wound clinic visit this day.) Discharge Medications: New oxycodone-acetaminophen [Percocet] 5-325 mg tablet 1 - 2 tablet PO Q6H PRN (Reason: pain) Qty: 40 0RF polyethylene glycol 3350 [Miralax] 17 gram Powder In Packet 17 g PO QAM Qty: 14 0RF ibuprofen 600 mg tablet 600 mg PO Q6H PRN (Reason: pain) Qty: 14 0RF sennosides-docusate sodium [Senokot-S] 8.6-50 mg tablet 2 tab-cap PO HS Qty: 10 0RF Continued cetirizine 10 mg Tablet 10 mg PO DAILY omeprazole 40 mg capsule,delayed release(DR/EC) 40 mg PO DAILY alprazolam 0.5 mg tablet 0.5 mg PO BID PRN (Reason: Anxiety) amitriptyline 25 mg tablet 25 mg PO HS montelukast 10 mg tablet 10 mg PO DAILY fluticasone propionate 50 mcg/actuation [place],Suspension 2 spray INTRANASAL DAILY Rx Instructions: administer into each nostril buspirone 15 mg tablet 45 mg DAILY bupropion HCl 300 mg tablet extended release 24 hr 300 mg PO DAILY desvenlafaxine succinate 25 mg tablet extended release 24 hr 25 mg PO DAILY diphenhydramine HCl [Benadryl] 50 mg Capsule 50 mg PO HS multivitamin [Daily Multivitamin] Tablet 1 tablet PO DAILY Unisom (doxylamine) 25 mg Tablet 25 mg PO HS PRN (Reason: Insomnia) Discontinued ondansetron HCl 8 mg tablet 8 mg PO Q8H PRN (Reason: Nausea And Vomiting) acetaminophen-codeine 300-30 mg tablet 1 tablet PO Q6H PRN (Reason: Incisional pain) docusate sodium [Colace] 100 mg Capsule 100 mg PO HS hydrocodone-acetaminophen 5-325 mg Tablet 1 tablet PO Q6H PRN (Reason: Pain Rated 4-6) Qty: 20 0RF sulfamethoxazole-trimethoprim 800-160 mg Tablet 1 tab PO Q12HR 7 Days Qty: 14 0RF promethazine 12.5 mg tablet 12.5 mg PO Q6H PRN (Reason: nausea and vomiting) Qty: 10 0RF Date of admission: 07/25/24 11:56 Primary Care Provider: Chantel,Antonio Barry Admitting Provider: Armand Mccann Attending physician on admission: Armand Mccann Condition: Improved
--- NOTE | 2024-08-07 13:28 | PCNFU ---
Nutrition Follow-Up Complete: Altered GI function as related to abd wound dehiscence as evidenced by NPO. goal: Meet estimated nutritional needs. Patient is progressing towards goal. We will continue current goal. Pt current nutrition is Low Fiber with Ensure Enlive TID. Last recorded weight is 99.1 kg, up from 96.2 kg on admit Bowel Motility: +BM reported 08/05 Labs Reviewed:TG 204 Meds Noted:Miralax, Protonix Skin: wound vac-medial abdomen. Additional Notes: TPN has been discontinued. Diet order advanced to Low Fiber diet. Intake today > 75% of meals. Diet supplements are providing an additional 350 kcal and 20 gm protein. Agree with diet orders. Will monitor weight, labs, skin, diet orders, meds every 7 days.
== END 2024-08-07 15:39 | disposition home or self-care (01) | DRG 907 ==
LOC: ANHSURGERY 12:45 → ANHICU 12:45 → ANH2MED 17:56
PROVIDERS: Radiology Diagnostic Radiology; Admitting Provider Surgery; PCP Family Medicine; Visit Provider Surgery
PROC: 0DN80ZZ Release Small Intestine, Open Approach (ICD-10-PCS; principal; 2024-07-24 13:30)
PROC: 0W9G30Z Drainage of Peritoneal Cavity with Drainage Device, Percutaneous Approach (ICD-10-PCS; CPT 75989; principal; 2024-08-01 11:00)
DX: T81.321A Disruption or dehiscence of closure of internal operation (surgical) wound of abdominal wall muscle or fascia, initial encounter (principal); K65.1 Peritoneal abscess; E44.0 Moderate protein-calorie malnutrition; K56.50 Intestinal adhesions [bands], unspecified as to partial versus complete obstruction; T81.43XA Infection following a procedure, organ and space surgical site, initial encounter; K91.89 Other postprocedural complications and disorders of digestive system; I97.191 Other postprocedural cardiac functional disturbances following other surgery; K56.7 Ileus, unspecified; K22.70 Barrett's esophagus without dysplasia; K21.9 Gastro-esophageal reflux disease without esophagitis; F32.A Depression, unspecified; F41.9 Anxiety disorder, unspecified
CPT/HCPCS: 36415; 36569; 43761; 71045; 74018; 74177; 74250; 75989; 76000; 80048; 80053; 81003; 82948; 83735; 84100; 84466; 84478; 85025; 85027; 85610; 85730; 86140; 87070; 87075; 87205; 87641; A9270; C1729; C1769; J0690; J0780; J1100; J1171; J1650; J1741; J1836; J1956; J2003; J2060; J2250; J2405; J2704; J2997; J3010; J3411; J3480; J7030; J7120; P9045; P9047; Q9967

== ENCOUNTER 2024-10-16 07:37 | Outpatient (RCR) | payer BC, SELFPAY ==
[2024-08-10 09:47] VITALS: BMI 23.8
== END 2024-10-30 10:02 | disposition home or self-care (01) ==
LOC: ANHWOC 07:37
PROVIDERS: PCP Family Medicine; Visit Provider Surgery
DX: T81.321A Disruption or dehiscence of closure of internal operation (surgical) wound of abdominal wall muscle or fascia, initial encounter (principal)
CPT/HCPCS: 97605; 99213; G0463